=== PATIENT | female | born 1945 | race Caucasian/White ===

== ENCOUNTER 2016-09-05 11:35 | Emergency (ER) | payer BC ==
[~2016-09-05] VITALS: Ht 154.9 cm; Wt 86.5 kg
[~2016-09-05 11:35] MED LIST: AMLO10TA4 PO; CHOLTAB3 PO; DIPH38TA PO; LANS30TA3 PO; LEVO100T7 PO; LOSA50TA54 PO
[2016-09-05 11:37] VITALS: TEMP 36.5; Ht 154.9 cm; Wt 86.5 kg
[2016-09-05] MEDS ORDERED: ONDANSETRON INJ 2 MG/ML 2 ML VIAL IV STA (11:56)
[2016-09-05] MEDS ORDERED: SODIUM CHLORIDE 0.9% 500ML 500 ML IV STA (11:56)
[2016-09-05] MEDS ORDERED: AGMUDL4005 PO (12:01)
[2016-09-05] MEDS ORDERED: HYDROmorphone INJ 0.5 MG/0.5 ML SYR IV STA (12:21)
[2016-09-05 12:30] LABS: BASO % 0.6 %; BASO ABS # 0.03 K/uL (0-0.2); COMPLETE YES; EOS % 2.4 %; HEMATOCRIT 41.2 % (37-47); IG% 0.2 %; LYMPH ABS # 1.84 K/uL (1.2-3.4); MEAN CELL VOLUME 82.6 fL (80-100); MEAN CORPUSCULAR HEMOGLOBIN 27.7 pg (25-34); MEAN CORPUSCULAR HGB CONC 33.5 g/dl (32-36); MEAN PLATELET VOLUME 9.8 fL (7.4-10.4); MONO % 8.1 %; NEUT % 54.7 %; PLATELET COUNT 300 K/uL (130-400); RED BLOOD COUNT 4.99 M/uL (4.2-5.4); WHITE BLOOD COUNT 5.41 K/uL (4.8-10.8)
[2016-09-05 12:44] LABS: MANUAL MICROSCOPIC REQUIRED? YES; URINE APPEARANCE CLEAR (CLEAR); URINE BILIRUBIN NEG (NEG); URINE COLOR YELLOW; URINE NITRITE NEG (NEG); URINE PH 6.5 (4.5-7.5); UROBILINOGEN NEG (NEG)
[2016-09-05 12:46] LABS: REVIEW REQ? NO
--- NOTE | 2016-09-05 12:53 | DIAGNOSTIC IMAGING REPORT ---
ABDOMEN AND PELVIS CT WITHOUT CONTRAST CT DOSE: 1044.98 mGycm HISTORY: Right lower quadrant abdominal pain. TECHNIQUE: Multiaxial CT images of the abdomen and pelvis were performed without contrast. COMPARISON STUDY: Abdomen and pelvis CT 04/11/2016. FINDINGS: Mild bladder wall thickening may be due to underdistention. The uterus and bilateral adnexa are within normal limits. The multiple colonic diverticula. Mild thickening of the distal sigmoid colon with mild adjacent fat stranding and trace fluid. This is progressed in the interval. This likely represents mild acute diverticulitis. There is no perforation or abscess identified at this time. Suboptimal evaluation for bowel pathology due to the lack of intravenous and oral contrast. However, no evidence for bowel obstruction. Postoperative changes consistent with prior right inguinal hernia repair. The lung bases are clear. No pneumoperitoneum. No pneumatosis. Bilateral L5 spondylolysis. Tiny fat-containing umbilical hernia. Prior cholecystectomy. The unenhanced spleen and adrenal glands are unremarkable. No renal stones or hydronephrosis. Subcentimeter exophytic hypodense lesions within the lower poles of the kidneys are too small to characterize but statistically represent cysts. Multiple scattered hypodense lesions within the liver are not significantly changed. These are incompletely characterized on this noncontrast study but favor cysts. Stable 1 cm hypodense lesion within the pancreatic head. This is stable compared to a 2014 examination. Therefore, this likely represents a cystic lesion. No change in the suspected interloop fistula/abscess within the deep pelvis. This is best seen on image 65. This measures approximately 2 cm in size. IMPRESSION: 1. Interval development of mild pericolonic fat stranding and trace fluid adjacent to the slightly thickened distal sigmoid colon. This likely represents a mild acute diverticulitis. No perforation or abscess identified at this time. 2. Mild bladder wall thickening. This could be due to underdistention. Recommend correlation with urinalysis to exclude a cystitis. 3. No change in the 2 cm thick-walled air-fluid structure within the central pelvis. 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 4. Additional findings as described above Electronically signed by: Chencho Leonardo M.D. 09/05/2016 12:51 PM
[2016-09-05 12:55] LABS: URINE RBC 0-4 /hpf (0-4)
[2016-09-05 12:56] LABS: URINE BACTERIA 1+ (NEG); ZZUR CULT IF INDIC CLEAN CATCH YES
[2016-09-05 12:59] LABS: ALT/SGPT 19 U/L (12-78); BLOOD UREA NITROGEN 12 mg/dl (7-18); BUN/CREATININE RATIO 15.5 (10-20); CALCIUM 9.3 mg/dl (8.5-10.1); CARBON DIOXIDE 24 mmol/L (21-32); CHLORIDE 105 mmol/L (98-107); CREATININE 0.75 mg/dl (0.60-1.20); GLUCOSE 101 mg/dl (70-99); SODIUM 140 mmol/L (136-145)
[2016-09-05 13:01] LABS: ALKALINE PHOSPHATASE 106 U/L (45-117); AST/SGOT 17 U/L (15-37)
[2016-09-05 13:56] VITALS: BP 141/77; PULSE 71; O2SAT 93
--- NOTE | 2016-09-05 17:47 | EMERGENCY ROOM VISIT NOTE ---
History Report prepared by Aracelis: Adrianne Murphy Under the Supervision of: Dr. Delmar Ireland D.O. First contact with patient: 11:46 Chief Complaint: ABDOMINAL PAIN Stated Complaint: PAIN IN SIDE OF STOMACH Nursing Triage Summary: Pt c/o right sided abdominal pain upper and lower since Friday. Hx hernia and diverticulitis. Pt asssociates nausea, denies v/d Bladder infection last week, taking antibiotics. History of Present Illness The patient is a 70 year old female who presents to the Emergency Room with complaints of persistent pain to her lower right abdominal quadrant over the past 3 days. Currently, her pain is radiating toward her umbilicus and she rates her discomfort as a 6/10. Since the time of onset, the patient has felt nauseous and has had low grade fevers of 100F. Prior to the onset of this pain, patient states that she began with increased frequency of urination last week, and was then started on Augmentin 2 days prior as her urine cultures grew back positive for infection. She denies having dysuria or hematuria since that time. Patient's last bowel movement was earlier today and she states that it appeared different than normal as the color was orange/yellow, but she denies noticing any blood throughout. Patient states that she was concerned about her pain today as it felt similar to her past episode of diverticulitis, which she previously had in the same area at that time as well. She also notes history of abdominal hernia. Pt denies headache, change in vision, chest pain, shortness of breath, vomiting, and diarrhea. Source of History: patient Onset: over the past 3 days Position: abdomen (RLQ) Symptom Intensity: 6/10 Timing: other (persistent) Associated Symptoms: + fevers (low grade), + nausea, + urinary symptoms ( increased frequency, no hematuria or dysuria), No SOB, No chest pain, No diarrhea, No headache, No melena, No vomiting Review of Systems See HPI for pertinent positives & negatives. A total of 10 systems reviewed and were otherwise negative. 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UNIT PO DAILY Lansoprazole (Prevacid Solutab), 30 MG PO QPM Levothyroxine Sodium (Levothyroxine Sodium), 100 MCG PO DAILY Losartan Potassium (Cozaar), 100 MG PO DAILY Scheduled PRN Lorazepam (Lorazepam), 0.5 MG PO BID PRN for Pain Allergies Coded Allergies: Iodinated Diagnostic Agents (Verified Allergy, Severe, sob, 09/05/16) Azithromycin (Verified Allergy, Intermediate, RASH, 09/05/16) Levalbuterol Hydrochloride (Verified Allergy, Intermediate, CHEST PAIN, 09/05/16) Minocycline (Verified Allergy, Intermediate, RASH, 09/05/16) Iodine (Verified Allergy, Mild, IV CONTRAST, 09/05/16) Cefaclor (Verified Allergy, Unknown, HIVES, 09/05/16) Erythromycin (Verified Allergy, Unknown, HIVES, 09/05/16) Nitrofurantoin (Verified Allergy, Unknown, 09/05/16) Phenazopyridine (Verified Allergy, Unknown, sob, 09/05/16) Sulfa Antibiotics (Verified Allergy, Unknown, HIVES, 09/05/16) Levofloxacin (Verified Adverse Reaction, Intermediate, ABDOMINAL PAIN, 09/05) Morphine (Verified Adverse Reaction, Intermediate, EXCESSIVE VOMITING, 09/05) Pt. states excessive vomiting with this medication Physical Exam Vital Signs Date Time Temp Pulse Resp B/P Pulse Ox O2 Delivery O2 Flow Rate FiO2 09/05/16 13:56 71 18 141/77 93 Room Air 09/05/16 11:37 36.5 88 17 153/90 94 Room Air Physical Exam GENERAL: Ambulating in room without difficulty. No acute distress, nontoxic. EYE EXAM: normal conjunctiva. OROPHARYNX: no exudate, no erythema, lips, buccal mucosa, and tongue normal and mucous membranes are moist NECK: supple, no nuchal rigidity, no adenopathy, non-tender LUNGS: Clear to auscultation. Normal chest wall mechanics HEART: no murmurs, S1 normal and S2 normal ABDOMEN: abdomen soft, minimal tenderness in the right lower quadrant, normo- active bowel sounds, no masses, no rebound or guarding. BACK: Back is symmetrical on inspection and there is no deformity, no midline tenderness, no CVA tenderness. SKIN: no rashes and no bruising UPPER EXTREMITIES: upper extremities are grossly normal. LOWER EXTREMITIES: No pitting edema. NEURO EXAM: Normal sensorium, cranial nerves II-XII grossly intact, normal speech, no gross weakness of arms, no gross weakness of legs. Medical Decision & Procedures ER Provider Diagnostic Interpretation: CT:Per my review, radiologist interpretation. ABDOMEN AND PELVIS CT WITHOUT CONTRAST CT DOSE: 1044.98 mGycm HISTORY: Right lower quadrant abdominal pain. TECHNIQUE: Multiaxial CT images of the abdomen and pelvis were performed without contrast. COMPARISON STUDY: Abdomen and pelvis CT 04/11/2016. FINDINGS: Mild bladder wall thickening may be due to underdistention. The uterus and bilateral adnexa are within normal limits. The multiple colonic diverticula. Mild thickening of the distal sigmoid colon with mild adjacent fat stranding and trace fluid. This is progressed in the interval. This likely represents mild acute diverticulitis. There is no perforation or abscess identified at this time. Suboptimal evaluation for bowel pathology due to the lack of intravenous and oral contrast. However, no evidence for bowel obstruction. Postoperative changes consistent with prior right inguinal hernia repair. The lung bases are clear. No pneumoperitoneum. No pneumatosis. Bilateral L5 spondylolysis. Tiny fat-containing umbilical hernia. Prior cholecystectomy. The unenhanced spleen and adrenal glands are unremarkable. No renal stones or hydronephrosis. Subcentimeter exophytic hypodense lesions within the lower poles of the kidneys are too small to characterize but statistically represent cysts. Multiple scattered hypodense lesions within the liver are not significantly changed. These are incompletely characterized on this noncontrast study but favor cysts. Stable 1 cm hypodense lesion within the pancreatic head. This is stable compared to a 2014 examination. Therefore, this likely represents a cystic lesion. No change in the suspected interloop fistula/abscess within the deep pelvis. This is best seen on image 65. This measures approximately 2 cm in size. IMPRESSION: 1. Interval development of mild pericolonic fat stranding and trace fluid adjacent to the slightly thickened distal sigmoid colon. This likely represents a mild acute diverticulitis. No perforation or abscess identified at this time. 2. Mild bladder wall thickening. This could be due to underdistention. Recommend correlation with urinalysis to exclude a cystitis. 3. No change in the 2 cm thick-walled air-fluid structure within the central pelvis. 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 4. Additional findings as described above Electronically signed by: Chencho Leonardo M.D. 09/05/2016 12:51 PM Laboratory Results 09/05/16 12:05 Red Blood Count 4.99, Mean Corpuscular Volume 82.6, Mean Corpuscular Hemoglobin 27.7, Mean Corpuscular Hemoglobin Concent 33.5, Mean Platelet Volume 9.8, Neutrophils (%) (Auto) 54.7, Lymphocytes (%) (Auto) 34.0, Monocytes (%) (Auto) 8.1, Eosinophils (%) (Auto) 2.4, Basophils (%) (Auto) 0.6, Neutrophils # (Auto) 2.96, Lymphocytes # (Auto) 1.84, Monocytes # (Auto) 0.44, Eosinophils # (Auto) 0.13, Basophils # (Auto) 0.03 09/05/16 12:05 Test 09/05/16 12:05 09/05/16 12:38 White Blood Count 5.41 K/uL (4.8-10.8) Red Blood Count 4.99 M/uL (4.2-5.4) Hemoglobin 13.8 g/dL (12.0-16.0) Hematocrit 41.2 % (37-47) Mean Corpuscular Volume 82.6 fL (80-100) Mean Corpuscular Hemoglobin 27.7 pg (25-34) Mean Corpuscular Hemoglobin Concent 33.5 g/dl (32-36) Platelet Count 300 K/uL (130-400) Mean Platelet Volume 9.8 fL (7.4-10.4) Neutrophils (%) (Auto) 54.7 % Lymphocytes (%) (Auto) 34.0 % Monocytes (%) (Auto) 8.1 % Eosinophils (%) (Auto) 2.4 % Basophils (%) (Auto) 0.6 % Neutrophils # (Auto) 2.96 K/uL (1.4-6.5) Lymphocytes # (Auto) 1.84 K/uL (1.2-3.4) Monocytes # (Auto) 0.44 K/uL (0.11-0.59) Eosinophils # (Auto) 0.13 K/uL (0-0.5) Basophils # (Auto) 0.03 K/uL (0-0.2) RDW Standard Deviation 41.3 fL (36.4-46.3) RDW Coefficient of Variation 13.7 % (11.5-14.5) Immature Granulocyte % (Auto) 0.2 % Immature Granulocyte # (Auto) 0.01 K/uL (0.00-0.02) Anion Gap 11.0 mmol/L (3-11) Est Creatinine Clear Calc Drug Dose 68.7 ml/min Estimated GFR () 92.9 Estimated GFR (Non- 80.2 BUN/Creatinine Ratio 15.5 (10-20) Calcium Level 9.3 mg/dl (8.5-10.1) Total Bilirubin 0.4 mg/dl (0.2-1) Direct Bilirubin < 0.1 mg/dl (0-0.2) Aspartate Amino Transf (AST/SGOT) 17 U/L (15-37) Alanine Aminotransferase (ALT/SGPT) 19 U/L (12-78) Alkaline Phosphatase 106 U/L (45-117) Total Protein 7.1 gm/dl (6.4-8.2) Albumin 3.4 gm/dl (3.4-5.0) Lipase 119 U/L (73-393) Urine Color YELLOW Urine Appearance CLEAR (CLEAR) Urine pH 6.5 (4.5-7.5) Urine Specific [place] 1.010 (1.000-1.030) Urine Protein NEG (NEG) Urine Glucose (UA) NEG (NEG) Urine Ketones NEG (NEG) Urine Occult Blood NEG (NEG) Urine Nitrite NEG (NEG) Urine Bilirubin NEG (NEG) Urine Urobilinogen NEG (NEG) Urine Leukocyte Esterase TRACE (NEG) Urine RBC 0-4 /hpf (0-4) Urine WBC 5-10 /hpf (0-5) Urine Epithelial Cells 10-20 /lpf (0-5) Urine Renal Cells 0-5 /lpf (FEW) Urine Bacteria 1+ (NEG) Laboratory results per my review. Medications Administered Medications (Trade) Dose Ordered Sig/Barb Route Start Time Stop Time Status Last Admin Dose Admin Sodium Chloride (Nss 500ml) 500 ml @ 999 mls/hr Q31M STAT IV 09/05/16 11:56 09/05/16 12:26 DC 09/05/16 12:19 999 MLS/HR Ondansetron HCl (Zofran Inj) 4 mg NOW STAT IV 09/05/16 11:56 09/05/16 11:58 DC 09/05/16 12:20 4 MG Hydromorphone HCl (Dilaudid Inj) 0.5 mg NOW STAT IV 09/05/16 12:21 09/05/16 12:22 DC 09/05/16 12:36 0.5 MG ED Course ED COURSE: Vital signs were reviewed and showed hypertension. The patients medical record was reviewed. Patient states that she has a known pelvic abscess which was unable to be drained by [facility]. Patient is also currently being treated for UTI and has 8 days left of her Augmentin prescription. The above diagnostic studies were performed and reviewed. ED treatments and interventions as stated above. 1147: The patient was evaluated in room A9. A complete history and physical examination was performed. 1156: Zofran 4 mg IV and NSS 500 ml @ 999 mls/hr IV were ordered. 1221: Upon reevaluation, the patient was having additional pain and was requesting medication. Dilaudid 0.5 mg IV was ordered. 1239: Patient was reevaluated and was doing well after given the medication. 1338: Upon reevaluation, the patient appeared to be resting comfortably. I updated her on the results of her radiology reports and lab tests. Discharge instructions were also discussed at this time. She verbalized her understanding and agreement with the treatment plan, and she is now ready for disposition. Based on the patients age, coexisting illnesses, exam and lab findings the decision to treat as an outpatient was made. The patient remained stable while under my care. The patient appeared well at the time of discharge. Medical Decision Differential diagnoses includes but is not limited to gastritis, peptic ulcer disease, GERD, gallbladder disease, pancreatitis, small bowel obstruction, acute coronary syndrome, pericarditis, ischemic bowel, irritable bowel disease, irritable bowel syndrome, appendicitis, diverticulitis, malignancy, hernia, urinary tract infection, torsion, perforation, trauma, infectious. Patient is a 70-year-old female who presents the ER with right lower quadrant abdominal pain. She notes that she does not have an appendix and this is worse deeply has her episodes/labs at diverticulitis. She seen by her PCP several days beforehand and placed on Augmentin for UTI this past Friday. She's been on the same Bertie past 2 days. She is not having any fevers. She is no complaints. CT of her abdomen pelvis was performed noncontrast due to her allergy and showed small amount diverticulitis in the right lower quadrant along with thickening of the bladder and small intra-abdominal/intrapelvic abscess which has been unchanged since this past April. I had discussion with the patient and she notes that she is aware of an abscess in her bili which they have been unable to drain following perforation. She follows with [facility]. I instructed that she should follow-up in regards to this. I also stressed the importance of continuing the Augmentin. I did not switch her antibiotics since she has only been on this antibiotic for less than 48 hours. This will cover both a UTI and diverticulitis. She is no leukocytosis. Remainder of her labs are fairly unremarkable. She was discharged and instructed to continue her Augmentin and follow-up with her PCP in next 48 hours. I offered narcotics but she declined. Discussed with Pt concerning signs and symptoms to watch out for. Pt was instructed to follow up with their PCP and discussed with the patient their option to return to the ED at anytime for persistent or worsening symptoms. The appropriate anticipatory guidance and out-patient management, including indications for return to the emergency department, were explained at length to the patient and understood. Impression Primary Impression: Diverticulitis Additional Impression: UTI (urinary tract infection) Scribe Attestation The scribe's documentation has been prepared under my direction and personally reviewed by me in its entirety. I confirm that the note above accurately reflects all work, treatment, procedures, and medical decision making performed by me. Departure Information Dispostion Home / Self-Care Referrals Sophie Mazariegos M.D. (PCP) Forms HOME CARE DOCUMENTATION FORM, IMPORTANT VISIT INFORMATION, My [facility] Patient Instructions A Signature Page Additional Instructions Please follow up with your primary care doctor with in the next 24 hours. Any worsening of your symptoms, please return to the ED immediately. This includes fevers greater than 100.4, persistent nausea vomiting, worsening abdominal pain , or any other concerning signs or symptoms from your standpoint. Please continue your Augmentin as this will treat your UTI and diverticulitis. You were also found to have the below findings on CT: You should follow-up with general surgery within the week in regards these findings. No change in the 2 cm thick-walled air-fluid structure within the central pelvis. 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
[2017-02-02] MEDS ORDERED: METR-162 PO (23:46)
[2017-02-06] MEDS ORDERED: VANC1CAP3 PO (23:46)
[2017-02-09] MEDS ORDERED: ATV5X PO (16:30)
[2017-02-09] MEDS ORDERED: DIPH1TAB PO (23:47)
[2017-02-11] MEDS ORDERED: VNCSEMP PO (12:53)
[2017-04-14] MEDS ORDERED: METR500T PO (13:41)
[2017-04-14] MEDS ORDERED: CPR500 PO (13:41)
[2017-04-15] MEDS ORDERED: CIPR1SUS PO (12:42)
[2017-04-15] MEDS ORDERED: MTR500 PO (12:42)
[2017-04-27] MEDS ORDERED: CIPR1SUS PO (14:06)
[2017-04-27] MEDS ORDERED: MTR500 PO (14:06)
[2017-06-06] MEDS ORDERED: CPRS5005 PO (16:41)
[2017-06-06] MEDS ORDERED: NYSS5 PO (16:41)
[2017-06-06] MEDS ORDERED: LCTX PO (16:41)
== END 2016-09-05 14:06 | disposition home or self-care (01) ==
LOC: C.EDB 11:37 → C.EDA 14:06
DX: K57.92 Diverticulitis of intestine, part unspecified, without perforation or abscess without bleeding (principal); N39.0 Urinary tract infection, site not specified; K65.1 Peritoneal abscess; I10 Essential (primary) hypertension; E03.9 Hypothyroidism, unspecified; K21.9 Gastro-esophageal reflux disease without esophagitis; Z85.3 Personal history of malignant neoplasm of breast; Z87.891 Personal history of nicotine dependence; Z80.9 Family history of malignant neoplasm, unspecified

== ENCOUNTER → 2016-09-19 | Outpatient (CLI) | payer BC ==
[~2016-09-19] MED LIST changes: +AGMUDL4005 PO; +ATV5X PO; +CHOL400C10 PO; +CIPR1SUS PO; +CPR500 PO; +DIPH1TAB PO; +FLUT0.15 NAE; +METR-162 PO; +METR500T PO; +MTR500 PO; +NRV/5 PO; +VANC1CAP3 PO; +VNCSEMP PO
--- NOTE | 2016-09-19 12:47 | DIAGNOSTIC IMAGING REPORT ---
CT SCAN OF THE ABDOMEN AND PELVIS WITHOUT CONTRAST CLINICAL HISTORY: DIVERTICULITIS RIGHT-SIDED ABDOMINAL PAIN, DIARRHEA. COMPARISON STUDY: 09/05/2016 TECHNIQUE: CT scan of the abdomen and pelvis was performed from the lung bases to the proximal femurs. Images are reviewed in the axial, sagittal, and coronal planes. IV contrast was not administered for this examination. CT DOSE: 988.49 mGycm FINDINGS: Lower chest: There are lingular atelectatic changes. Liver: There are multiple hepatic hypodensities similar to the prior study and likely represent cysts. Gallbladder: Surgically absent Spleen: Normal in size and attenuation. Pancreas: There is a stable 15 mm cystic lesion within the pancreatic head. Adrenal glands: Unremarkable. Kidneys: No renal, ureteral, or bladder calculi are visualized. Bowel: There are no transition zones indicate bowel obstruction. By history the appendix is surgically absent. There is sigmoid diverticulosis. There is sigmoid wall thickening. This likely secondary to peridiverticular muscular hypertrophy. The previously queried deep pelvic abscess is no longer visualized. The sigmoid colon abuts a small bowel loop. A fistula cannot be excluded. Hepatic Peritoneum: No free air is visualized. There is no ascites. There is a tiny fat-containing umbilical hernia. There are postsurgical changes of a right lower quadrant abdominal wall hernia repair. Vasculature: The abdominal aorta is normal in course and caliber. Adenopathy: None. Pelvic viscera: The bladder, and pelvic viscera are unremarkable. Skeletal structures: There is bilateral L5 spondylolysis. IMPRESSION: 1. No renal, ureteral, or bladder calculi identified 2. Sigmoid diverticulosis with wall thickening likely secondary to peridiverticular muscular hypertrophy. The previously described central pelvic abscess is no longer visualized. The sigmoid colon abuts a small bowel loop. A small fistula cannot be excluded. 3. No evidence of bowel obstruction. No evidence of free air Electronically signed by: Lincoln Johnston M.D. 09/19/2016 12:45 PM Dictated Date/Time: 09/19/2016 12:39 PM
== END | disposition home or self-care (01) ==
LOC: C.CTS 12:15
PROVIDERS: ATTEND Colon & Rectal Surgery
DX: R19.7 Diarrhea, unspecified (principal); K57.30 Diverticulosis of large intestine without perforation or abscess without bleeding

== ENCOUNTER → 2016-11-13 | Outpatient (CLI) | payer BC ==
[~2016-11-13] MED LIST changes: +CALCTAB7 PO; +CHOL4POW5 PO; +CPRS5005 PO; -DIPH1TAB PO; +DIPH1TAB87 PO; +FLUC200T PO; +LCTX PO; +METRONIDAZOLE PO; +NYSS5 PO; +vancomycin susp PO
[2016-11-13 13:42] VITALS: BP 138/84; PULSE 69; TEMP 36.6; O2SAT 94
--- NOTE | 2016-11-13 15:39 | Radiation Oncology Follow-Up ---
Radiation Oncology Follow-Up Date of Visit Nov 13, 2016. Reason For Visit Six-month follow-up Radiation Completion Date finished 03-01-2016 Diagnosis (1) Intraductal carcinoma of left breast Status: Resolved Onset Date: 11/14/2015 Stage: 0 Permanent Comment: Abnormal left breast mammogram Status post stereotactic biopsy 11/14/2015 revealing DCIS grade 1 Estrogen receptor positive and progesterone receptor positive Status post needle localization lumpectomy 12/20/2015 Stage pTis pNX Status post completion of radiation therapy 03/01/2016 received 3850 cGy utilizing accelerated partial breast irradiation. Last Edited By: Ese Cabrera on Mar 14, 2016 11:36 History of Present Illness Ms. Quinn is a 70-year-old female without a family history of breast cancer. She recently underwent a bilateral digital screening mammogram on 10/31/2015. This study noted and increasingly conspicuous 2 cm nodular asymmetry with associated microcalcifications in the upper inner far posterior left breast that warranted further evaluation with spot magnification views and possibly ultrasound. These procedures were performed on 11/07/2015. This confirmed a new nodular focal asymmetry with associated microcalcifications extending over a 0.07 x 1.3 x 1.9 cm area in the upper inner far posterior left breast. This was felt to be indeterminant but given a BI-RADS Category 4B with biopsies recommended. On 11/14/2015 patient underwent a stereotactic guided biopsy of the left breast. This revealed a low-grade ductal carcinoma in situ which is associated with a papilloma. It measures an aggregate approximately 1 cm no necrosis was noted, the architectural pattern was solid and microcalcifications were present. Estrogen receptors were positive as were progesterone receptors. No infiltrative carcinoma was appreciated. Case: [id number]. The patient subsequently went to [facility] where she was seen by Dr. Carrie Morejon she discussed breast conserving therapy with the patient who agreed to a partial mastectomy. The patient underwent a needle localization to confirm no clip migration and on December 19 underwent a partial mastectomy. This confirmed residual ductal carcinoma in situ, low-grade with intraductal papilloma with focal DCIS. The margins were negative for DCIS and there was no evidence of invasive carcinoma. The estimated size of the DCIS was at least 0.6 cm and the disease was present in 5 out of 10 blocks examined. This was a cribriform and solid low-grade cancer with no necrosis. The margins were clear with the closest margin 0.9 cm which is the posterior margin. No sentinel node was performed. The final stage was therefore pTis pNx. ER positive NH positive. The patient has recovered well from the surgery and presents today for discussion of the adjuvant treatment options. She underwent a CT simulation was found to be a candidate for accelerated partial treatment. She was given treatment from February 24 to 03/01/2016. She received 3850 cGy. Interim History She's been doing well over the past 6 months. She denies any changes to her breast. She has noted no masses or tenderness no change of the axilla. She's had no swelling of her arm. She has seen her breast surgeon in [place] and had recheck mammography. She was seen by medical oncology and prescribed tamoxifen. She unfortunately had severe hot flashes, fever, and nausea. She stopped the medication. At her last visit she was encouraged to follow-up with Dr. Guevara. She was also encouraged by her breast surgeon see Dr. Guevara. She had a mammogram 07/05/2016. This showed postsurgical changes in the left breast are benign. A bilateral diagnostic mammogram is recommended in 6 months. BI-RADS Category 2. Allergies Coded Allergies: Iodinated Diagnostic Agents (Verified Allergy, Severe, sob, 09/05/16) Azithromycin (Verified Allergy, Intermediate, RASH, 09/05/16) Levalbuterol Hydrochloride (Verified Allergy, Intermediate, CHEST PAIN, 09/05/16) Minocycline (Verified Allergy, Intermediate, RASH, 09/05/16) Iodine (Verified Allergy, Mild, IV CONTRAST, 09/05/16) Cefaclor (Verified Allergy, Unknown, HIVES, 09/05/16) Erythromycin (Verified Allergy, Unknown, HIVES, 09/05/16) Nitrofurantoin (Verified Allergy, Unknown, 09/05/16) Phenazopyridine (Verified Allergy, Unknown, sob, 09/05/16) Sulfa Antibiotics (Verified Allergy, Unknown, HIVES, 09/05/16) Levofloxacin (Verified Adverse Reaction, Intermediate, ABDOMINAL PAIN, 09/05) Morphine (Verified Adverse Reaction, Intermediate, EXCESSIVE VOMITING, 09/05) Pt. states excessive vomiting with this medication Home Medications Scheduled Amlodipine Besylate (Norvasc), 10 MG PO QPM Ergocalciferol (Vitamin D), 400 INTER.UNIT PO DAILY Lansoprazole (Prevacid Solutab), 30 MG PO QPM Levothyroxine Sodium (Levothyroxine Sodium), 100 MCG PO DAILY Losartan Potassium (Cozaar), 100 MG PO DAILY Scheduled PRN Lorazepam (Lorazepam), 0.5 MG PO BID PRN for Pain Review of Systems Gastrointestinal: Symptoms: WNL GI Comments: Nausea from abscess Oral: Symptoms: No Problems Respiratory: Symptoms: WNL Urinary: Symptoms: Nocturia Comments: nocturia times 3 Skin: Symptoms: No Problems Breast: Right Upper Arm Measurement: 35.4 Right Mid Arm Measurement: 25.5 Right Wrist Measurement: 15.9 Left Upper Arm Measurement: 37.5 Left Mid Arm Measurement: 27.0 Left Wrist Measurement: 16.5 Arm Dominence: Right Patient Cosmetic Evaluation: Excellent Staff Cosmetic Evalaluation: Excellent Physical Exam Vital Signs Date Time Temp Pulse Resp B/P Pulse Ox O2 Delivery O2 Flow Rate FiO2 11/13/16 13:42 36.6 69 16 138/84 94 Pain: Pain Duration: Constant Side: Bilateral Patient Pain Scale: 0 - 10 Initial Pain Intensity: 0.0 Pain Description: Sharp, Soreness Fatigue: None General Appearance: no apparent distress Eyes: normal inspection, EOMI ENT: normal ENT inspection, hearing grossly normal, + nasal congestion Neck: no adenopathy, thyroid normal Respiratory/Chest: lungs clear, no respiratory distress, no accessory muscle use Breast: Breast examination reveals well-healed incisions of the left breast. There is an oval area of resolving hyperpigmentation in the upper inner portion of the breast. There is mild deficit in the area of lumpectomy. There are no masses or tenderness and no axillary adenopathy. There are no nipple changes. Using the [place] score cosmesis she has a good outcome. The right breast showed no masses or tenderness no axillary adenopathy. Cardiovascular: regular rate, rhythm, no gallop, no murmur Abdomen: non tender, soft, no organomegaly Extremities: no pedal edema Neurologic/Psychiatric: no motor/sensory deficits, alert, normal mood/affect Laboratory Studies Test 09/05/16 12:05 09/05/16 12:38 White Blood Count 5.41 K/uL (4.8-10.8) Red Blood Count 4.99 M/uL (4.2-5.4) Hemoglobin 13.8 g/dL (12.0-16.0) Hematocrit 41.2 % (37-47) Mean Corpuscular Volume 82.6 fL (80-100) Mean Corpuscular Hemoglobin 27.7 pg (25-34) Mean Corpuscular Hemoglobin Concent 33.5 g/dl (32-36) Platelet Count 300 K/uL (130-400) Mean Platelet Volume 9.8 fL (7.4-10.4) Neutrophils (%) (Auto) 54.7 % Lymphocytes (%) (Auto) 34.0 % Monocytes (%) (Auto) 8.1 % Eosinophils (%) (Auto) 2.4 % Basophils (%) (Auto) 0.6 % Neutrophils # (Auto) 2.96 K/uL (1.4-6.5) Lymphocytes # (Auto) 1.84 K/uL (1.2-3.4) Monocytes # (Auto) 0.44 K/uL (0.11-0.59) Eosinophils # (Auto) 0.13 K/uL (0-0.5) Basophils # (Auto) 0.03 K/uL (0-0.2) RDW Standard Deviation 41.3 fL (36.4-46.3) RDW Coefficient of Variation 13.7 % (11.5-14.5) Immature Granulocyte % (Auto) 0.2 % Immature Granulocyte # (Auto) 0.01 K/uL (0.00-0.02) Sodium Level 140 mmol/L (136-145) Potassium Level 4.0 mmol/L (3.5-5.1) Chloride Level 105 mmol/L (98-107) Carbon Dioxide Level 24 mmol/L (21-32) Anion Gap 11.0 mmol/L (3-11) Blood Urea Nitrogen 12 mg/dl (7-18) Creatinine 0.75 mg/dl (0.60-1.20) Est Creatinine Clear Calc Drug Dose 68.7 ml/min Estimated GFR () 92.9 Estimated GFR (Non- 80.2 BUN/Creatinine Ratio 15.5 (10-20) Random Glucose 101 mg/dl (70-99) Calcium Level 9.3 mg/dl (8.5-10.1) Total Bilirubin 0.4 mg/dl (0.2-1) Direct Bilirubin < 0.1 mg/dl (0-0.2) Aspartate Amino Transferase (AST) 17 U/L (15-37) Alanine Aminotransferase (ALT) 19 U/L (12-78) Alkaline Phosphatase 106 U/L (45-117) Total Protein 7.1 gm/dl (6.4-8.2) Albumin 3.4 gm/dl (3.4-5.0) Lipase 119 U/L (73-393) Urine Color YELLOW Urine Appearance CLEAR (CLEAR) Urine pH 6.5 (4.5-7.5) Urine Specific [place] 1.010 (1.000-1.030) Urine Protein NEG (NEG) Urine Glucose (UA) NEG (NEG) Urine Ketones NEG (NEG) Urine Occult Blood NEG (NEG) Urine Nitrite NEG (NEG) Urine Bilirubin NEG (NEG) Urine Urobilinogen NEG (NEG) Urine Leukocyte Esterase TRACE (NEG) Urine RBC 0-4 /hpf (0-4) Urine WBC 5-10 /hpf (0-5) Urine Epithelial Cells 10-20 /lpf (0-5) Urine Renal Cells 0-5 /lpf (FEW) Urine Bacteria 1+ (NEG) Additional Studies Mammography as reviewed above. Assessment & Plan Plan: Continue follow-up visits with her breast surgeon and mammography in [place]. She'll be due in December. We discussed follow-up visit with Dr. Guevara. She stated she was not going to make a follow-up appointment at this time. She did not wish to try any other medication. She is afraid of side effects. We asked her to return to our office in 1 year. She may call if she has any questions or concerns in the interim. She is going to having left rotator cuff surgery within the next few months. She was concerned of possible side effects due to the prior radiation. I reviewed with her that she was treated using accelerated partial breast treatment. The only area that may have any delayed healing would be in the oval area of treatment. This would not affect her healing following the rotator cuff surgery. Total Time In Follow-Up I spent 20 minutes speaking to the patient and performing examination. I spent 15 minutes reviewing information and completing this note. Copy To Bennie Guevara D.O.; Sophie Mazariegos M.D.; Carrie Morejon M.D.
== END | disposition home or self-care (01) ==
LOC: C.ONC 13:27
PROVIDERS: ATTEND Physician Assistant Medical
DX: Z08 Encounter for follow-up examination after completed treatment for malignant neoplasm (principal); Z92.3 Personal history of irradiation; Z85.3 Personal history of malignant neoplasm of breast

== ENCOUNTER 2016-12-05 11:51 | Emergency (ER) | payer BC ==
[~2016-12-05] VITALS: Ht 154.9 cm; Wt 85.3 kg
[~2016-12-05 11:51] MED LIST changes: -AGMUDL4005 PO; -ATV5X PO; -CALCTAB7 PO; -CHOL400C10 PO; -CHOL4POW5 PO; -CIPR1SUS PO; -CPR500 PO; -CPRS5005 PO; -DIPH1TAB87 PO; -DIPH38TA PO; -FLUC200T PO; -FLUT0.15 NAE; -LCTX PO; -METR-162 PO; -METR500T PO; -METRONIDAZOLE PO; -MTR500 PO; -NRV/5 PO; -NYSS5 PO; -VANC1CAP3 PO; -VNCSEMP PO; -vancomycin susp PO
[2016-12-05 11:53] VITALS: TEMP 36.4; Ht 154.9 cm; Wt 85.3 kg
[2016-12-05] MEDS ORDERED: ONDANSETRON INJ 2 MG/ML 2 ML VIAL IV STA (12:11)
[2016-12-05] MEDS ORDERED: HYDROmorphone INJ 1 MG/ML SYR IV STA (12:15)
[2016-12-05 12:50] LABS: BASO % 0.6 %; BASO ABS # 0.03 K/uL (0-0.2); COMPLETE YES; LYMPH % 29.9 %; LYMPH ABS # 1.56 K/uL (1.2-3.4); MEAN CELL VOLUME 81.3 fL (80-100); MEAN CORPUSCULAR HEMOGLOBIN 27.4 pg (25-34); MEAN CORPUSCULAR HGB CONC 33.8 g/dl (32-36); MEAN PLATELET VOLUME 9.8 fL (7.4-10.4); MONO % 5.6 %; NEUT % 62.9 %; PLATELET COUNT 263 K/uL (130-400); RED BLOOD COUNT 4.92 M/uL (4.2-5.4); WHITE BLOOD COUNT 5.21 K/uL (4.8-10.8)
[2016-12-05 13:05] LABS: URINE APPEARANCE CLEAR (CLEAR); URINE BILIRUBIN NEG (NEG); URINE COLOR YELLOW; URINE EPITHELIAL CELL AUTO 20-30 /lpf (0-5); URINE NITRITE NEG (NEG); URINE SPECIFIC GRAVITY 1.008 (1.000-1.030); UROBILINOGEN NEG (NEG)
--- NOTE | 2016-12-05 13:16 | DIAGNOSTIC IMAGING REPORT ---
ABDOMEN AND PELVIS CT WITHOUT CONTRAST CT DOSE: 905.75 mGy.cm HISTORY: Pain LLQ tenderness eval for diver tic TECHNIQUE: Multiaxial CT images of the abdomen and pelvis were performed without contrast. COMPARISON STUDY: 09/19/2016 FINDINGS: Minimal dependent basilar atelectasis. Multiple hepatic cysts unchanged in the prior study. Prior cholecystectomy. Spleen is unremarkable. Kidneys negative for hydronephrosis. Bowel pattern is nonobstructive. Findings of chronic sigmoid diverticulosis. Within left lower pelvis is a mild component of chronic infiltrative change. Although most likely chronic, a minimal component of acute diverticulitis is not excluded. There is no evidence for abscess collection or obstruction. IMPRESSION: 1. Chronic sigmoid diverticulosis possibly with a small acute diverticulitis component in the low left lateral pelvic region. 2. No evidence for abscess collection or obstruction. 3. Multiple stable hepatic cysts. 4. Prior cholecystectomy. Electronically signed by: Tremayne Richmond M.D. 12/05/2016 1:14 PM Dictated Date/Time: 12/05/2016 1:10 PM
[2016-12-05 13:19] LABS: BUN/CREATININE RATIO 16.3 (10-20); CALCIUM 9.1 mg/dl (8.5-10.1); CREATININE 0.73 mg/dl (0.60-1.20); POTASSIUM 3.6 mmol/L (3.5-5.1)
[2016-12-05 13:27] LABS: MANUAL MICROSCOPIC REQUIRED? NO; REVIEW REQ? NO
[2016-12-05] MEDS ORDERED: AGMUDL4005 PO (13:48)
[2016-12-05 14:02] VITALS: BP 118/60; PULSE 55; O2SAT 97
--- NOTE | 2016-12-05 14:07 | EMERGENCY ROOM VISIT NOTE ---
History Report prepared by Aracelis: Funmilayo Escalante Under the Supervision of: Dr. Yogi Paz M.D. First contact with patient: 12:02 Chief Complaint: ABDOMINAL PAIN Stated Complaint: DIVERTICULITIS Nursing Triage Summary: PT VERBALIZES LEFT ABDOMINAL PAIN, VERBALIZING "I'VE GOT DIVERTICULITIS AGAIN". PT VERBALIZES SYMPTOMS STARTED FRIDAY, PAIN WORSENING. PT VERBALIZES NAUSEA. DENIES ANY BLOOD IN STOOL. History of Present Illness The patient is a 71 year old female who presents to the Emergency Room with complaints of worsening left lower quadrant abdominal pain that began 4 days ago. She describes the pain as achy. It is an 8/10 in severity. She also complains of nausea, a few episodes of diarrhea, and dysuria. The patient was diagnosed with diverticulitis in September. Her current symptoms feel similar to her previous episode of diverticulitis. She also feels that she may have a UTI. The patient has a history of a pelvic abscess for which she was following with [facility]. A follow up CT scan on September 19 showed no evidence of the pelvic abscess, although there was question of a small fistula in the sigmoid colon. Denies fever, vomiting, bloody stool, or other complaints. Source of History: patient Onset: 4 days ago Position: abdomen (LLQ) Symptom Intensity: 8/10 Quality: ache Timing: worsening Associated Symptoms: + diarrhea, + nausea, + urinary symptoms (dysuria), No fevers, No vomiting Review of Systems See HPI for pertinent positives & negatives. A total of 10 systems reviewed and were otherwise negative. 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 (11) Urin Tract Infection Nos Surgical Problems: (1) H/O hernia repair (2) H/O knee surgery (3) History of appendectomy (4) Hx of tonsillectomy (5) S/P cholecystectomy Family History Cancer Social History Smoking Status: Former Smoker Alcohol Use: none Drug Use: none Marital Status: Housing Status: lives with family Occupation Status: retired Current/Historical Medications Scheduled Amlodipine Besylate (Norvasc), 10 MG PO QPM Amoxicillin/Clavulanate Potas (Augmentin 400MG/5ML), 11 ML PO BID Ergocalciferol (Vitamin D), 400 INTER.UNIT PO DAILY Lansoprazole (Prevacid Solutab), 30 MG PO QPM Levothyroxine Sodium (Levothyroxine Sodium), 100 MCG PO DAILY Losartan Potassium (Cozaar), 100 MG PO DAILY Scheduled PRN Lorazepam (Lorazepam), 0.5 MG PO BID PRN for Pain Allergies Coded Allergies: Iodinated Diagnostic Agents (Verified Allergy, Severe, sob, 09/05/16) Azithromycin (Verified Allergy, Intermediate, RASH, 09/05/16) Levalbuterol Hydrochloride (Verified Allergy, Intermediate, CHEST PAIN, 09/05/16) Minocycline (Verified Allergy, Intermediate, RASH, 09/05/16) Iodine (Verified Allergy, Mild, IV CONTRAST, 09/05/16) Cefaclor (Verified Allergy, Unknown, HIVES, 09/05/16) Erythromycin (Verified Allergy, Unknown, HIVES, 09/05/16) Nitrofurantoin (Verified Allergy, Unknown, 09/05/16) Phenazopyridine (Verified Allergy, Unknown, sob, 09/05/16) Sulfa Antibiotics (Verified Allergy, Unknown, HIVES, 09/05/16) Levofloxacin (Verified Adverse Reaction, Intermediate, ABDOMINAL PAIN, 09/05) Morphine (Verified Adverse Reaction, Intermediate, EXCESSIVE VOMITING, 09/05) Pt. states excessive vomiting with this medication Physical Exam Vital Signs Date Time Temp Pulse Resp B/P Pulse Ox O2 Delivery O2 Flow Rate FiO2 12/05/16 13:16 66 20 131/65 94 Room Air 12/05/16 11:53 36.4 81 18 156/82 97 Room Air Physical Exam Constitutional: Vital signs reviewed. Eyes: Pupils are equal round reactive to light. Conjunctiva are noninjected. ENT: Pharynx is clear without erythema or exudate. Mucous membranes are moist. Neck supple without meningeal signs. Respiratory: Clear to auscultation bilaterally. Breath sounds are equal bilaterally. Cardiovascular: Regular rate and rhythm. No rubs or gallops. GI: Soft, nondistended, left lower quadrant tenderness. No guarding. Bowel sounds are present. Musculoskeletal: No peripheral edema. No lower extremity tenderness. Integumentary: No cyanosis. Neurological: The patient is awake and alert. No focal deficits. Psychiatric: Normal affect. Medical Decision & Procedures ER Provider Diagnostic Interpretation: Radiology results as stated below per my review and the radiologist's interpretation: ABDOMEN AND PELVIS CT WITHOUT CONTRAST CT DOSE: 905.75 mGy.cm HISTORY: Pain LLQ tenderness eval for diver tic TECHNIQUE: Multiaxial CT images of the abdomen and pelvis were performed without contrast. COMPARISON STUDY: 09/19/2016 FINDINGS: Minimal dependent basilar atelectasis. Multiple hepatic cysts unchanged in the prior study. Prior cholecystectomy. Spleen is unremarkable. Kidneys negative for hydronephrosis. Bowel pattern is nonobstructive. Findings of chronic sigmoid diverticulosis. Within left lower pelvis is a mild component of chronic infiltrative change. Although most likely chronic, a minimal component of acute diverticulitis is not excluded. There is no evidence for abscess collection or obstruction. IMPRESSION: 1. Chronic sigmoid diverticulosis possibly with a small acute diverticulitis component in the low left lateral pelvic region. 2. No evidence for abscess collection or obstruction. 3. Multiple stable hepatic cysts. 4. Prior cholecystectomy. Electronically signed by: Tremayne Richmond M.D. 12/05/2016 1:14 PM Dictated Date/Time: 12/05/2016 1:10 PM Laboratory Results 12/05/16 12:32 Red Blood Count 4.92, Mean Corpuscular Volume 81.3, Mean Corpuscular Hemoglobin 27.4, Mean Corpuscular Hemoglobin Concent 33.8, Mean Platelet Volume 9.8, Neutrophils (%) (Auto) 62.9, Lymphocytes (%) (Auto) 29.9, Monocytes (%) (Auto) 5.6, Eosinophils (%) (Auto) 1.0, Basophils (%) (Auto) 0.6, Neutrophils # (Auto) 3.28, Lymphocytes # (Auto) 1.56, Monocytes # (Auto) 0.29, Eosinophils # (Auto) 0.05, Basophils # (Auto) 0.03 12/05/16 12:32 Test 12/05/16 12:32 White Blood Count 5.21 K/uL (4.8-10.8) Red Blood Count 4.92 M/uL (4.2-5.4) Hemoglobin 13.5 g/dL (12.0-16.0) Hematocrit 40.0 % (37-47) Mean Corpuscular Volume 81.3 fL (80-100) Mean Corpuscular Hemoglobin 27.4 pg (25-34) Mean Corpuscular Hemoglobin Concent 33.8 g/dl (32-36) Platelet Count 263 K/uL (130-400) Mean Platelet Volume 9.8 fL (7.4-10.4) Neutrophils (%) (Auto) 62.9 % Lymphocytes (%) (Auto) 29.9 % Monocytes (%) (Auto) 5.6 % Eosinophils (%) (Auto) 1.0 % Basophils (%) (Auto) 0.6 % Neutrophils # (Auto) 3.28 K/uL (1.4-6.5) Lymphocytes # (Auto) 1.56 K/uL (1.2-3.4) Monocytes # (Auto) 0.29 K/uL (0.11-0.59) Eosinophils # (Auto) 0.05 K/uL (0-0.5) Basophils # (Auto) 0.03 K/uL (0-0.2) RDW Standard Deviation 42.9 fL (36.4-46.3) RDW Coefficient of Variation 14.4 % (11.5-14.5) Immature Granulocyte % (Auto) 0.0 % Immature Granulocyte # (Auto) 0.00 K/uL (0.00-0.02) Urine Color YELLOW Urine Appearance CLEAR (CLEAR) Urine pH 6.0 (4.5-7.5) Urine Specific [place] 1.008 (1.000-1.030) Urine Protein NEG (NEG) Urine Glucose (UA) NEG (NEG) Urine Ketones 1+ (NEG) Urine Occult Blood NEG (NEG) Urine Nitrite NEG (NEG) Urine Bilirubin NEG (NEG) Urine Urobilinogen NEG (NEG) Urine Leukocyte Esterase TRACE (NEG) Urine WBC (Auto) 1-5 /hpf (0-5) Urine RBC (Auto) 0-4 /hpf (0-4) Urine Hyaline Casts (Auto) 0 /lpf (0-5) Urine Epithelial Cells (Auto) 20-30 /lpf (0-5) Urine Bacteria (Auto) NEG (NEG) Anion Gap 8.0 mmol/L (3-11) Est Creatinine Clear Calc Drug Dose 69.0 ml/min Estimated GFR () 95.4 Estimated GFR (Non- 82.3 BUN/Creatinine Ratio 16.3 (10-20) Calcium Level 9.1 mg/dl (8.5-10.1) Total Bilirubin 0.8 mg/dl (0.2-1) Direct Bilirubin 0.2 mg/dl (0-0.2) Aspartate Amino Transf (AST/SGOT) 11 U/L (15-37) Alanine Aminotransferase (ALT/SGPT) 18 U/L (12-78) Alkaline Phosphatase 98 U/L (45-117) Total Protein 6.9 gm/dl (6.4-8.2) Albumin 3.8 gm/dl (3.4-5.0) Lipase 119 U/L (73-393) Laboratory results as reviewed by me. Medications Administered Medications (Trade) Dose Ordered Sig/Barb Route Start Time Stop Time Status Last Admin Dose Admin Ondansetron HCl (Zofran Inj) 4 mg NOW STAT IV 12/05/16 12:11 12/05/16 12:14 DC 12/05/16 12:36 4 MG Hydromorphone HCl (Dilaudid Inj) 0.5 mg NOW STAT IV 12/05/16 12:15 12/05/16 12:16 DC 12/05/16 12:37 0.5 MG ED Course 1206: The patient was evaluated in room C1. A complete history and physical exam was performed. 1211: Ordered Zofran Inj 4 mg IV. 1215: Ordered Dilaudid Inj 0.5 mg IV. 1345: Upon reevaluation, the patient appeared to have improvement of her symptoms. I discussed rickyight's findings with the patient. She verbalized agreement of the treatment plan. The patient was discharged home. Medical Decision This is a 71-year-old female presents with left lower quadrant pain and dysuria. Differential diagnosis includes diverticulitis, abscess, perforation, UTI, fistula. I did perform a limited focused review of portions of the patient 's old chart on the electronic medical record. She was here in September and was diagnosed with a mild diverticulitis. 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 She is followed by [facility] for the abscess. She had a follow up CT on the 19 of September which showed no evidence of the pelvic abscess. There was a question of a small fistula in the sigmoid colon. I did evaluate the patient as noted above. IV access was established. I did treat patient with IV Dilaudid and Zofran. I did order and personally review the patient's urinalysis and as described above. A urine culture was sent. I did order and review the patient's blood work as noted in the electronic medical record. Her white blood cell count is not elevated. The patient has a prior history of diverticulitis. She has had multiple CTs in the past. I did not initially want to obtain a CT but unfortunately the patient has a prior history of abscess and fistula formation and so I did feel it was indicated. I discussed this with the patient who was in agreement. I did order a CT of the abdomen and pelvis. I did review the images myself as well as the radiology report as described above. She does have mild diverticulitis and sigmoid colon without perforation or abscess. I did discuss the testicles with the patient. She requested liquid antibiotics as she has trouble with pills. She was discharged with a prescription for Augmentin and will follow up with her regular doctor as well as her surgeon due to her recurrent episodes of diverticulitis. Impression Primary Impression: Diverticulitis Additional Impression: Dysuria Scribe Attestation The scribe's documentation has been prepared under my direct and personally reviewed by me in its entirety. I confirm that the note above accurately reflects all work, treatment, procedures, and medical decision making performed by me. Departure Information Dispostion Home / Self-Care Prescriptions Amoxicillin/Clavulanate Potas (AUGMENTIN 400MG/5ML) 400 Mg/5 Ml Susp 11 ML PO BID for 10 Days, #220 ML Prov: Yogi Paz M.D. 12/05/16 Referrals No Doctor, Assigned (PCP) Patient Instructions Diverticulitis Jason, My [facility] Additional Instructions You have been examined and treated today on an emergency basis only. This is not a substitute for, or an effort to provide, complete comprehensive medical care. It is impossible to recognize and treat all injuries or illnesses in a single emergency department visit. It is therefore important that you follow up closely with your physician and your surgeon. Call as soon as possible for an appointment. Return for worsening symptoms or if you develop fever, vomiting, or any other concerning symptoms. Problem Qualifiers Primary Impression: Diverticulitis Diverticulitis site: large intestine Diverticulitis bleeding: without bleeding Diverticulitis complication: without perforation or abscess Qualified Codes: K57.32 - Diverticulitis of large intestine without perforation or abscess without bleeding
[2017-02-02] MEDS ORDERED: METR-162 PO (23:46)
[2017-02-06] MEDS ORDERED: VANC1CAP3 PO (23:46)
[2017-02-09] MEDS ORDERED: ATV5X PO (16:30)
[2017-02-11] MEDS ORDERED: VNCSEMP PO (12:53)
[2017-04-14] MEDS ORDERED: METR500T PO (13:41)
[2017-04-14] MEDS ORDERED: CPR500 PO (13:41)
[2017-04-15] MEDS ORDERED: MTR500 PO (12:42)
[2017-04-15] MEDS ORDERED: CIPR1SUS PO (12:42)
[2017-04-27] MEDS ORDERED: CIPR1SUS PO (14:06)
[2017-04-27] MEDS ORDERED: MTR500 PO (14:06)
[2017-06-06] MEDS ORDERED: CPRS5005 PO (16:41)
[2017-06-06] MEDS ORDERED: LCTX PO (16:41)
[2017-06-06] MEDS ORDERED: NYSS5 PO (16:41)
[2017-07-30] MEDS ORDERED: CHOL4POW5 PO (12:17)
== END 2016-12-05 14:04 | disposition home or self-care (01) ==
LOC: C.EDB 11:55 → C.EDC 14:04
DX: K57.32 Diverticulitis of large intestine without perforation or abscess without bleeding (principal); R30.0 Dysuria; K22.70 Barrett's esophagus without dysplasia; Z85.3 Personal history of malignant neoplasm of breast; K21.9 Gastro-esophageal reflux disease without esophagitis; E78.5 Hyperlipidemia, unspecified; I10 Essential (primary) hypertension; E03.9 Hypothyroidism, unspecified; Z87.440 Personal history of urinary (tract) infections; Z90.49 Acquired absence of other specified parts of digestive tract; Z80.9 Family history of malignant neoplasm, unspecified; Z87.891 Personal history of nicotine dependence; Z79.899 Other long term (current) drug therapy

== ENCOUNTER → 2017-01-31 | Outpatient (CLI) | payer BC ==
[~2017-01-31] MED LIST changes: +AGMUDL4005 PO; +ATV5X PO; +CALCTAB7 PO; +CHOL400C10 PO; +CHOL4POW5 PO; +CIPR1SUS PO; +CPR500 PO; +CPRS5005 PO; +DIPH1TAB87 PO; +DIPH38TA PO; +FLUC200T PO; +FLUT0.15 NAE; +LCTX PO; +METR-162 PO; +METR500T PO; +METRONIDAZOLE PO; +MTR500 PO; +NRV/5 PO; +NYSS5 PO; +VANC1CAP3 PO; +VNCSEMP PO; +vancomycin susp PO
== END | disposition home or self-care (01) ==
LOC: C.LABSPEC 07:50
PROVIDERS: ATTEND Family Medicine
DX: A09 Infectious gastroenteritis and colitis, unspecified (principal)

== ENCOUNTER 2017-02-09 21:20 | Inpatient (IN) | payer BC, OTHER ==
[~2017-02-09] VITALS: Ht 154.9 cm; Wt 83.2 kg
[~2017-02-09 21:20] MED LIST changes: -AGMUDL4005 PO; -CALCTAB7 PO; -CHOL400C10 PO; -CHOL4POW5 PO; -CIPR1SUS PO; -CPR500 PO; -CPRS5005 PO; -DIPH1TAB87 PO; -DIPH38TA PO; -FLUC200T PO; -FLUT0.15 NAE; -LCTX PO; -METR500T PO; -METRONIDAZOLE PO; -MTR500 PO; -NRV/5 PO; -NYSS5 PO; -VNCSEMP PO; -vancomycin susp PO
--- NOTE | 2017-02-09 22:28 | EMERGENCY ROOM VISIT NOTE ---
History Report prepared by Aracelis: Chad Crowell Under the Supervision of: Dr. Jaun Enriquez D.O. First contact with patient: 22:11 Chief Complaint: DIARRHEA Stated Complaint: C-DIFF History of Present Illness The patient is a 71 year old female who presents to the Emergency Room with complaints of persistent diarrhea that began roughly one week prior to this visit. The patient states that she is currently taking a prescription of Flagyl for confirmed C-difficile. She claims that her C-diff was confirmed after antibiotic use following a dental infection. She has had C-difficile twice in the past, and was hospitalized during one previous episode. The patient is also currently complaining of a fever, nausea, and weakness. She notes that her urine has been significantly darker than usual as of lately. Source of History: patient Onset: One week [facility] CUTTER Position: other (Gastrointestinal ) Quality: other (Diarrhea ) Timing: other (Persistent) Associated Symptoms: + fevers, + nausea, + urinary symptoms, + weakness Review of Systems See HPI for pertinent positives and negatives. A total of ten systems were reviewed and were otherwise negative. 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 (11) Urin Tract Infection Nos Surgical Problems: (1) H/O hernia repair (2) H/O knee surgery (3) History of appendectomy (4) Hx of tonsillectomy (5) S/P cholecystectomy Family History Cancer Social History Smoking Status: Former Smoker Alcohol Use: none Drug Use: none Marital Status: Housing Status: lives with family Occupation Status: retired Current/Historical Medications Scheduled Amlodipine Besylate (Amlodipine Besylate), 10 MG PO QPM Cholecalciferol (Vitamin D 400), 400 UNITS PO DAILY Lansoprazole (Prevacid Solutab), 30 MG PO QPM Levothyroxine Sodium (Levothyroxine Sodium), 100 MCG PO DAILY Losartan Potassium (Cozaar), 100 MG PO DAILY Metronidazole (Flagyl), 500 MG PO TID Vancomycin Hcl (Vancomycin), 250 MG PO QID Scheduled PRN Diphenhydramine Hcl (Benadryl Allergy), 25 MG PO DAILY PRN for allergies Fluticasone Propionate (Nasal) (Flonase Allergy Relief), 2 SPRY RUSH DAILY PRN for allergies Lorazepam (Lorazepam), 0.5 MG PO BID PRN for Anxiety Allergies Coded Allergies: Iodinated Diagnostic Agents (Verified Allergy, Severe, sob, 02/09/17) Azithromycin (Verified Allergy, Intermediate, RASH, 02/09/17) Levalbuterol Hydrochloride (Verified Allergy, Intermediate, CHEST PAIN, 07/18) Minocycline (Verified Allergy, Intermediate, RASH, 02/09/17) Iodine (Verified Allergy, Mild, IV CONTRAST, 02/09/17) Cefaclor (Verified Allergy, Unknown, HIVES, 02/09/17) Erythromycin (Verified Allergy, Unknown, HIVES, 02/09/17) Nitrofurantoin (Verified Allergy, Unknown, 02/09/17) Phenazopyridine (Verified Allergy, Unknown, sob, 02/09/17) Sulfa Antibiotics (Verified Allergy, Unknown, HIVES, 02/09/17) Levofloxacin (Verified Adverse Reaction, Intermediate, ABDOMINAL PAIN, 07/18) Morphine (Verified Adverse Reaction, Intermediate, EXCESSIVE VOMITING, 07/18) Pt. states excessive vomiting with this medication Physical Exam Vital Signs Date Time Temp Pulse Resp B/P (MAP) Pulse Ox O2 Delivery O2 Flow Rate FiO2 02/09/17 23:29 74 18 135/75 97 Room Air 83 150/70 76 162/77 02/09/17 22:45 83 02/09/17 22:44 Room Air 02/09/17 22:44 Room Air 02/09/17 21:27 36.7 93 18 162/78 96 Room Air Physical Exam GENERAL: Awake, alert, well-appearing, in no distress HENT: Normocephalic, atraumatic. Oropharynx unremarkable. EYES: Normal conjunctiva. Sclera non-icteric. NECK: Supple. No nuchal rigidity. FROM. No JVD. RESPIRATORY: Clear to auscultation. CARDIAC: Regular rate, normal rhythm. Extremities warm and well perfused. Pulses equal. ABDOMEN: Soft, non-distended. No tenderness to palpation. No rebound or guarding. No masses. RECTAL: Deferred. MUSCULOSKELETAL: Chest examination reveals no tenderness. The back is symmetrical on inspection without obvious abnormality. There is no CVA tenderness to palpation. No joint edema. LOWER EXTREMITIES: Calves are equal size bilaterally and non-tender. No edema. No discoloration. NEURO: Normal sensorium. No sensory or motor deficits noted. SKIN: No rash or jaundice noted. Medical Decision & Procedures Laboratory Results 02/10/17 00:16 Red Blood Count 4.70, Mean Corpuscular Volume 81.5, Mean Corpuscular Hemoglobin 26.4, Mean Corpuscular Hemoglobin Concent 32.4, Mean Platelet Volume 9.6, Neutrophils (%) (Auto) 63.7, Lymphocytes (%) (Auto) 24.9, Monocytes (%) (Auto) 7.2, Eosinophils (%) (Auto) 3.7, Basophils (%) (Auto) 0.4, Neutrophils # (Auto) 4.24, Lymphocytes # (Auto) 1.66, Monocytes # (Auto) 0.48, Eosinophils # (Auto) 0.25, Basophils # (Auto) 0.03 02/09/17 23:16 Test 02/09/17 22:25 02/09/17 22:42 02/09/17 23:16 02/10/17 00:16 Urine Color ORANGE Urine Appearance CLEAR (CLEAR) Urine pH 5.5 (4.5-7.5) Urine Specific [place] 1.023 (1.000-1.030) Urine Protein NEG (NEG) Urine Glucose (UA) NEG (NEG) Urine Ketones TRACE (NEG) Urine Occult Blood NEG (NEG) Urine Nitrite POS (NEG) Urine Bilirubin NEG (NEG) Urine Urobilinogen NEG (NEG) Urine Leukocyte Esterase MODERATE (NEG) Urine WBC (Auto) 10-30 /hpf (0-5) Urine RBC (Auto) 0-4 /hpf (0-4) Urine Hyaline Casts (Auto) 10-30 /lpf (0-5) Urine Epithelial Cells (Auto) >30 /lpf (0-5) Urine Bacteria (Auto) NEG (NEG) Bedside Glucose 115 mg/dl (70-90) Anion Gap 15.0 mmol/L (3-11) Est Creatinine Clear Calc Drug Dose 60.4 ml/min Estimated GFR () 89.4 Estimated GFR (Non- 77.1 BUN/Creatinine Ratio 18.8 (10-20) Calcium Level 8.4 mg/dl (8.5-10.1) Total Bilirubin 0.3 mg/dl (0.2-1) Direct Bilirubin < 0.1 mg/dl (0-0.2) Aspartate Amino Transf (AST/SGOT) 25 U/L (15-37) Alanine Aminotransferase (ALT/SGPT) 34 U/L (12-78) Alkaline Phosphatase 90 U/L (45-117) Total Protein 6.9 gm/dl (6.4-8.2) Albumin 3.6 gm/dl (3.4-5.0) Thyroid Stimulating Hormone (TSH) 0.830 uIu/ml (0.300-4.500) White Blood Count 6.67 K/uL (4.8-10.8) Red Blood Count 4.70 M/uL (4.2-5.4) Hemoglobin 12.4 g/dL (12.0-16.0) Hematocrit 38.3 % (37-47) Mean Corpuscular Volume 81.5 fL (80-100) Mean Corpuscular Hemoglobin 26.4 pg (25-34) Mean Corpuscular Hemoglobin Concent 32.4 g/dl (32-36) Platelet Count 268 K/uL (130-400) Mean Platelet Volume 9.6 fL (7.4-10.4) Neutrophils (%) (Auto) 63.7 % Lymphocytes (%) (Auto) 24.9 % Monocytes (%) (Auto) 7.2 % Eosinophils (%) (Auto) 3.7 % Basophils (%) (Auto) 0.4 % Neutrophils # (Auto) 4.24 K/uL (1.4-6.5) Lymphocytes # (Auto) 1.66 K/uL (1.2-3.4) Monocytes # (Auto) 0.48 K/uL (0.11-0.59) Eosinophils # (Auto) 0.25 K/uL (0-0.5) Basophils # (Auto) 0.03 K/uL (0-0.2) RDW Standard Deviation 43.1 fL (36.4-46.3) RDW Coefficient of Variation 14.3 % (11.5-14.5) Immature Granulocyte % (Auto) 0.1 % Immature Granulocyte # (Auto) 0.01 K/uL (0.00-0.02) Laboratory results reviewed by me Medications Administered Medications (Trade) Dose Ordered Sig/Barb Route Start Time Stop Time Status Last Admin Dose Admin Sodium Chloride 1,000 ml @ 999 mls/hr Q1H1M STAT IV 02/09/17 22:30 02/09/17 23:30 DC 02/09/17 22:48 999 MLS/HR ECG Indication: weakness Rate (beats per minute): 73 Rhythm: sinus rhythm Findings: RBBB (incomplete), no acute ischemic change, other (Normal [place]) ED Course 2218: The patient was evaluated in room B2. A complete history and physical exam was performed. 2229: Ordered Sodium Chloride 1000 mL @ 999 mL/hr IV. 0117: I discussed the case with Dr. Gurdeep Shah at this time , he will evaluate the patient for further treatment. Medical Decision Blood pressure screening: Patient was found to have an elevated blood pressure and was referred to their primary doctor for recheck and further treatment. Medication Reconciliation: I attest that I have personally reviewed the patient' s current medication list. Differential Diagnosis include; C-difficile colitis, electrolyte imbalance, dehydration, and gastroenteritis. Patient's medications reviewed, patient started on IV fluids, given vancomycin solution. Case was discussed with the hospitalist for admission due to dehydration dizziness and continued C. difficile colitis Consults Time Called: 109 Consulting Physician: Dr. Albino Shah Returned Call: [phone] I discussed the case with Dr. Gurdeep Shah at this time, he will evaluate the patient for further treatment. Impression Primary Impression: Dehydration Additional Impression: C. difficile colitis Scribe Attestation The scribe's documentation has been prepared under my direction and personally reviewed by me in its entirety. I confirm that the note above accurately reflects all work, treatment, procedures, and medical decision making performed by me. Departure Information Dispostion Being Evaluated By Hospitalist Referrals Sophie Mazariegos M.D. (PCP) Patient Instructions My [facility] Problem Qualifiers
[2017-02-09] MEDS ORDERED: SODIUM CHLORIDE 0.9% 1000ML 1,000 ML IV STA (22:30)
[2017-02-09 22:51] LABS: URINE APPEARANCE CLEAR (CLEAR); URINE COLOR ORANGE; URINE EPITHELIAL CELL AUTO >30 /lpf (0-5); URINE NITRITE POS (NEG); URINE PH 5.5 (4.5-7.5); URINE SPECIFIC GRAVITY 1.023 (1.000-1.030); UROBILINOGEN NEG (NEG)
[2017-02-09 22:52] LABS: MANUAL MICROSCOPIC REQUIRED? NO; REVIEW REQ? NO
[2017-02-09 22:53] LABS: URINE BILIRUBIN NEG (NEG)
[2017-02-09] MEDS ORDERED: CHOL400C10 PO (23:42)
[2017-02-09] MEDS ORDERED: NRV/5 PO (23:46)
[2017-02-09] MEDS ORDERED: FLUT0.15 NAE (23:47)
[2017-02-09] MEDS ORDERED: DIPH1TAB87 PO (23:47)
[2017-02-10 00:18] LABS: ALT/SGPT 34 U/L (12-78); AST/SGOT 25 U/L (15-37); BLOOD UREA NITROGEN 14 mg/dl (7-18); BUN/CREATININE RATIO 18.8 (10-20); CALCIUM 8.4 mg/dl (8.5-10.1); CARBON DIOXIDE 21 mmol/L (21-32); CHLORIDE 107 mmol/L (98-107); CREATININE 0.77 mg/dl (0.60-1.20); GLUCOSE 104 mg/dl (70-99); POTASSIUM 3.6 mmol/L (3.5-5.1); SODIUM 143 mmol/L (136-145)
[2017-02-10 00:26] LABS: ALKALINE PHOSPHATASE 90 U/L (45-117)
[2017-02-10 00:27] LABS: BASO % 0.4 %; BASO ABS # 0.03 K/uL (0-0.2); COMPLETE YES; EOS % 3.7 %; HEMATOCRIT 38.3 % (37-47); IG% 0.1 %; LYMPH % 24.9 %; LYMPH ABS # 1.66 K/uL (1.2-3.4); MEAN CELL VOLUME 81.5 fL (80-100); MEAN CORPUSCULAR HEMOGLOBIN 26.4 pg (25-34); MEAN CORPUSCULAR HGB CONC 32.4 g/dl (32-36); MEAN PLATELET VOLUME 9.6 fL (7.4-10.4); MONO % 7.2 %; NEUT % 63.7 %; PLATELET COUNT 268 K/uL (130-400); WHITE BLOOD COUNT 6.67 K/uL (4.8-10.8)
[2017-02-10] MEDS ORDERED: RASPBERRY SYRUP 5 ML UDP PO STA (01:19)
[2017-02-10] MEDS ORDERED: VANCOMYCIN HCL 250 MG/5 ML SOLN PO STA (01:19)
[2017-02-10] MEDS ORDERED: LORAZEPAM 0.5 MG TAB PO PRN (03:00)
[2017-02-10] MEDS ORDERED: ACETAMINOPHEN 325 MG TAB PO PRN (03:00)
[2017-02-10] MEDS ORDERED: ONDANSETRON INJ 2 MG/ML 2 ML VIAL IV PRN (03:00)
[2017-02-10 03:15] VITALS: BP 142/78; PULSE 65; TEMP 36.5; O2SAT 95; Ht 154.9 cm; Wt 83.2 kg
[2017-02-10] MEDS: SODIUM CHLORIDE 0.9% 1000ML 1,000 ML IV SCH ×2 (04:21→13:37)
--- NOTE | 2017-02-10 04:21 | History and Physical ---
History & Physical Date & Time of Service: Feb 10, 2017 at 03:59 Chief Complaint: C.difficile Colitis Primary Care Physician: Sophie Mazariegos M.D. History of Present Illness Source: patient, clinic records, hospital records This is a 71 year old female with a PMH of HTN, hypothyroidism, Suarez's esophagus, hx. of diverticulitis and C. Diff colitis presents to the ER due to worsening diarrhea; she had been having diarrhea and stool studies ordered as per PCP; found to have C. diff on January 31; and was prescribed PO vanco solution; states that it tasted terribly and could not tolerate it; she was then prescribed Flagyl, but this did not work and her diarrhea worsened; she then had vancomycin capsules prescribed, but she could not tolerate these due to her Suarez's esophagus; she was on vacation in [place] and was continuing to take Flagyl - but she had worsening diarrhea to about 15 times daily; abdominal cramping; no fevers/chills. Denies chest pain/shortness of breath. She had also been c/o dizziness and dark urine. 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 Status: Resolved (11) Urin Tract Infection Nos Status: Resolved Surgical Problems: (1) H/O hernia repair Status: Chronic (2) H/O knee surgery Status: Chronic (3) History of appendectomy Status: Resolved (4) Hx of tonsillectomy Status: Chronic (5) S/P cholecystectomy Status: Chronic Family History Cancer Social History Smoking Status: Former Smoker Drug Use: none Marital Status: Housing status: lives with family Occupational Status: retired Immunizations History of Influenza Vaccine: Unknown History of Tetanus Vaccine?: Unknown History of Pneumococcal: Unknown History of Hepatitis B Vaccine: Unknown Multi-Drug Resistant Organisms History of MDRO: No Allergies Coded Allergies: Iodinated Diagnostic Agents (Verified Allergy, Severe, sob, 02/09/17) Azithromycin (Verified Allergy, Intermediate, RASH, 02/09/17) Levalbuterol Hydrochloride (Verified Allergy, Intermediate, CHEST PAIN, 07/18) Minocycline (Verified Allergy, Intermediate, RASH, 02/09/17) Iodine (Verified Allergy, Mild, IV CONTRAST, 02/09/17) Cefaclor (Verified Allergy, Unknown, HIVES, 02/09/17) Erythromycin (Verified Allergy, Unknown, HIVES, 02/09/17) Nitrofurantoin (Verified Allergy, Unknown, 02/09/17) Phenazopyridine (Verified Allergy, Unknown, sob, 02/09/17) Sulfa Antibiotics (Verified Allergy, Unknown, HIVES, 02/09/17) Levofloxacin (Verified Adverse Reaction, Intermediate, ABDOMINAL PAIN, 07/18) Morphine (Verified Adverse Reaction, Intermediate, EXCESSIVE VOMITING, 07/18) Pt. states excessive vomiting with this medication Home Medications Scheduled Amlodipine Besylate (Amlodipine Besylate), 10 MG PO QPM Cholecalciferol (Vitamin D 400), 400 UNITS PO DAILY Lansoprazole (Prevacid Solutab), 30 MG PO QPM Levothyroxine Sodium (Levothyroxine Sodium), 100 MCG PO DAILY Losartan Potassium (Cozaar), 100 MG PO DAILY Metronidazole (Flagyl), 500 MG PO TID Vancomycin Hcl (Vancomycin), 250 MG PO QID Scheduled PRN Diphenhydramine Hcl (Benadryl Allergy), 25 MG PO DAILY PRN for allergies Fluticasone Propionate (Nasal) (Flonase Allergy Relief), 2 SPRY RUSH DAILY PRN for allergies Lorazepam (Lorazepam), 0.5 MG PO BID PRN for Anxiety Review of Systems Constitutional: No fever, No chills, No weakness, No fatigue Respiratory: No cough, No sputum, No wheezing, No shortness of breath, No dyspnea on exertion, No dyspnea at rest, No hemoptysis Cardiovascular: No chest pain, No edema, No palpitations Abdomen: + pain, + nausea, + diarrhea, No vomiting, No constipation, No GI bleeding Musculoskeletal: No joint pain Genitourinary - Female: No dysuria, No urinary frequency, No urinary urgency, No urinary incontinence, No urinary retention, No hematuria Neurologic: + problem reported (dizziness), No weakness, No numbness/tingling, No vertigo, No balance problems Psychiatric: No depression symptoms Hematologic / Lymphatic: No abnormal bleeding/bruising Integumentary: No rash Allergic / Immunologic: No environmental allergies, No seasonal allergies Physical Exam Vital Signs Date Time Temp Pulse Resp B/P (MAP) Pulse Ox O2 Delivery O2 Flow Rate FiO2 02/10/17 03:14 36.7 69 18 131/59 99 02/10/17 02:06 68 02/10/17 01:50 70 18 135/66 97 Room Air 02/09/17 23:29 74 18 135/75 97 Room Air 83 150/70 76 162/77 02/09/17 22:45 83 02/09/17 22:44 Room Air 02/09/17 22:44 Room Air 02/09/17 21:27 36.7 93 18 162/78 96 Room Air General Appearance: no apparent distress Head: normocephalic, atraumatic Eyes: normal inspection ENT: hearing grossly normal Respiratory/Chest: chest non-tender, lungs clear, normal breath sounds, no respiratory distress, no accessory muscle use Cardiovascular: regular rate, rhythm, no edema, no murmur Abdomen/GI: soft, + tenderness (diffusely tender to deep palpation), + abnormal bowel sounds (hyperactive) Extremities/Musculoskelatal: normal capillary refill, no pedal edema Neurologic/Psych: no motor/sensory deficits, alert, normal mood/affect Skin: normal color Lymphatic: no adenopathy Diagnostics Laboratory Results Results Past 24 Hours Test 02/09/17 22:25 02/09/17 22:42 02/09/17 23:16 02/10/17 00:16 Range/Units Urine Color ORANGE Urine Appearance CLEAR CLEAR Urine pH 5.5 4.5-7.5 Urine Specific [place] 1.023 1.000-1.030 Urine Protein NEG NEG Urine Glucose (UA) NEG NEG Urine Ketones TRACE NEG Urine Occult Blood NEG NEG Urine Nitrite POS NEG Urine Bilirubin NEG NEG Urine Urobilinogen NEG NEG Urine Leukocyte Esterase MODERATE NEG Urine WBC (Auto) 10-30 0-5 /hpf Urine RBC (Auto) 0-4 0-4 /hpf Urine Hyaline Casts (Auto) 10-30 0-5 /lpf Urine Epithelial Cells (Auto) >30 0-5 /lpf Urine Bacteria (Auto) NEG NEG Bedside Glucose 115 70-90 mg/dl Sodium Level 143 136-145 mmol/L Potassium Level 3.6 3.5-5.1 mmol/L Chloride Level 107 98-107 mmol/L Carbon Dioxide Level 21 21-32 mmol/L Anion Gap 15.0 3-11 mmol/L Blood Urea Nitrogen 14 7-18 mg/dl Creatinine 0.77 0.60-1.20 mg/dl Est Creatinine Clear Calc Drug Dose 60.4 ml/min Estimated GFR () 89.4 Estimated GFR (Non- 77.1 BUN/Creatinine Ratio 18.8 10-20 Random Glucose 104 70-99 mg/dl Calcium Level 8.4 8.5-10.1 mg/dl Total Bilirubin 0.3 0.2-1 mg/dl Direct Bilirubin < 0.1 0-0.2 mg/dl Aspartate Amino Transf (AST/SGOT) 25 15-37 U/L Alanine Aminotransferase (ALT/SGPT) 34 12-78 U/L Alkaline Phosphatase 90 45-117 U/L Total Protein 6.9 6.4-8.2 gm/dl Albumin 3.6 3.4-5.0 gm/dl Thyroid Stimulating Hormone (TSH) 0.830 0.300-4.500 uIu/ml White Blood Count 6.67 4.8-10.8 K/uL Red Blood Count 4.70 4.2-5.4 M/uL Hemoglobin 12.4 12.0-16.0 g/dL Hematocrit 38.3 37-47 % Mean Corpuscular Volume 81.5 80-100 fL Mean Corpuscular Hemoglobin 26.4 25-34 pg Mean Corpuscular Hemoglobin Concent 32.4 32-36 g/dl Platelet Count 268 130-400 K/uL Mean Platelet Volume 9.6 7.4-10.4 fL Neutrophils (%) (Auto) 63.7 % Lymphocytes (%) (Auto) 24.9 % Monocytes (%) (Auto) 7.2 % Eosinophils (%) (Auto) 3.7 % Basophils (%) (Auto) 0.4 % Neutrophils # (Auto) 4.24 1.4-6.5 K/uL Lymphocytes # (Auto) 1.66 1.2-3.4 K/uL Monocytes # (Auto) 0.48 0.11-0.59 K/uL Eosinophils # (Auto) 0.25 0-0.5 K/uL Basophils # (Auto) 0.03 0-0.2 K/uL RDW Standard Deviation 43.1 36.4-46.3 fL RDW Coefficient of Variation 14.3 11.5-14.5 % Immature Granulocyte % (Auto) 0.1 % Immature Granulocyte # (Auto) 0.01 0.00-0.02 K/uL Microbiology Results 02/09/17 Blood Culture, Received Pending 02/09/17 Blood Culture, Received Pending Impression Assessment and Plan This is a 71 year old female with a PMH of HTN, hypothyroidism, Suarez's esophagus, hx. of diverticulitis and C. Diff colitis presents with recurrent C. diff Recurrent C. Diff Infection +C diff on January 31 worsening C. diff diarrhea with Flagyl, could not tolerate Vanco capsules will try Vanco solution QID patient has had C. Diff twice before already will likely need a tapering Vancomycin dose IVFs due to concentrated urine, dizziness, dehydrated Suarez's Esophagus continue PPI Lozenge for thrush HTN continue home meds Hypothyroidism continue Synthroid DVT ppx SCDs FULL CODE VTE Prophylaxis VTE Risk Assessment Done? Y/N: Yes Risk Level: Moderate
[2017-02-10] MEDS: LEVOTHYROXINE 100 MCG TAB PO SCH (06:09)
[2017-02-10] MEDS: CLOTRIMAZOLE 10 MG TROCHE MT SCH ×5 (06:09→23:59)
[2017-02-10 07:28] VITALS: BP 111/67; PULSE 57; TEMP 36.6; O2SAT 94
[2017-02-10] MEDS: RASPBERRY SYRUP 5 ML UDP PO SCH ×4 (08:33→21:10)
[2017-02-10] MEDS: VANCOMYCIN HCL 250 MG/5 ML SOLN PO SCH ×4 (08:33→21:18)
[2017-02-10] MEDS: LOSARTAN POTASSIUM 50 MG TAB PO SCH (08:33)
[2017-02-10 15:42] VITALS: BP 143/78; PULSE 63; TEMP 37; O2SAT 98
--- NOTE | 2017-02-10 16:16 | Progress Note ---
Medicine Progress Note Date & Time of Visit: Feb 10, 2017 at 14:26. Subjective This is a 71 year old female with a PMH of HTN, hypothyroidism, Suarez's esophagus, hx. of diverticulitis and C. Diff colitis presents with recurrent C. diff -recent PCN use for dental infection -c-diff diagnosed on 01/31, but couldn't tolerate or didn't take therapy until she was back from her vacation recently -by that time things had gotten worse and she came into the hospital -currently feeling much better with improvement/resolution of diarrhea -denies fevers, chills, or abdominal pain, corroborated on exam -is asking for solid foods so will advance her diet. -asking about probiotics use and would like to try if able. Objective Last 8 Hrs Date Time Temp Pulse Resp B/P (MAP) Pulse Ox O2 Delivery O2 Flow Rate FiO2 02/10/17 08:00 Room Air 02/10/17 07:28 36.6 57 18 111/67 (82) 94 Room Air Physical Exam: GEN: WNWD, in no acute distress, alert and appropriate HEENT: NC/AT, normal sclerae, pharynx non acute, no thrush present, MMM CARDIO: reg rate, S1/2 heard without m/g/r LUNGS: CTA bilaterally, no crackles, rales or wheezes, good diaphragmatic excursion ABD: soft, non-tender, non-distended, no rebound or guarding, +BS EXTREMITY: RP and DP palpable 2+ bilat, no LE swelling or edema, extremities are warm and well-perfused NEURO: CN 2-12 grossly intact, no gross focal deficits. MUSC: 5/5 strength throughout, no gross focal deficits SKIN: warm and dry Laboratory Results: 02/10/17 00:16 Red Blood Count 4.70, Mean Corpuscular Volume 81.5, Mean Corpuscular Hemoglobin 26.4, Mean Corpuscular Hemoglobin Concent 32.4, Mean Platelet Volume 9.6, Neutrophils (%) (Auto) 63.7, Lymphocytes (%) (Auto) 24.9, Monocytes (%) (Auto) 7.2, Eosinophils (%) (Auto) 3.7, Basophils (%) (Auto) 0.4, Neutrophils # (Auto) 4.24, Lymphocytes # (Auto) 1.66, Monocytes # (Auto) 0.48, Eosinophils # (Auto) 0.25, Basophils # (Auto) 0.03 02/09/17 23:16 Test 02/09/17 22:25 02/09/17 22:42 02/09/17 23:16 02/10/17 00:16 Urine Color ORANGE Urine Appearance CLEAR (CLEAR) Urine pH 5.5 (4.5-7.5) Urine Specific [place] 1.023 (1.000-1.030) Urine Protein NEG (NEG) Urine Glucose (UA) NEG (NEG) Urine Ketones TRACE (NEG) Urine Occult Blood NEG (NEG) Urine Nitrite POS (NEG) Urine Bilirubin NEG (NEG) Urine Urobilinogen NEG (NEG) Urine Leukocyte Esterase MODERATE (NEG) Urine WBC (Auto) 10-30 /hpf (0-5) Urine RBC (Auto) 0-4 /hpf (0-4) Urine Hyaline Casts (Auto) 10-30 /lpf (0-5) Urine Epithelial Cells (Auto) >30 /lpf (0-5) Urine Bacteria (Auto) NEG (NEG) Bedside Glucose 115 mg/dl (70-90) Anion Gap 15.0 mmol/L (3-11) Est Creatinine Clear Calc Drug Dose 60.4 ml/min Estimated GFR () 89.4 Estimated GFR (Non- 77.1 BUN/Creatinine Ratio 18.8 (10-20) Calcium Level 8.4 mg/dl (8.5-10.1) Total Bilirubin 0.3 mg/dl (0.2-1) Direct Bilirubin < 0.1 mg/dl (0-0.2) Aspartate Amino Transf (AST/SGOT) 25 U/L (15-37) Alanine Aminotransferase (ALT/SGPT) 34 U/L (12-78) Alkaline Phosphatase 90 U/L (45-117) Total Protein 6.9 gm/dl (6.4-8.2) Albumin 3.6 gm/dl (3.4-5.0) Thyroid Stimulating Hormone (TSH) 0.830 uIu/ml (0.300-4.500) White Blood Count 6.67 K/uL (4.8-10.8) Red Blood Count 4.70 M/uL (4.2-5.4) Hemoglobin 12.4 g/dL (12.0-16.0) Hematocrit 38.3 % (37-47) Mean Corpuscular Volume 81.5 fL (80-100) Mean Corpuscular Hemoglobin 26.4 pg (25-34) Mean Corpuscular Hemoglobin Concent 32.4 g/dl (32-36) Platelet Count 268 K/uL (130-400) Mean Platelet Volume 9.6 fL (7.4-10.4) Neutrophils (%) (Auto) 63.7 % Lymphocytes (%) (Auto) 24.9 % Monocytes (%) (Auto) 7.2 % Eosinophils (%) (Auto) 3.7 % Basophils (%) (Auto) 0.4 % Neutrophils # (Auto) 4.24 K/uL (1.4-6.5) Lymphocytes # (Auto) 1.66 K/uL (1.2-3.4) Monocytes # (Auto) 0.48 K/uL (0.11-0.59) Eosinophils # (Auto) 0.25 K/uL (0-0.5) Basophils # (Auto) 0.03 K/uL (0-0.2) RDW Standard Deviation 43.1 fL (36.4-46.3) RDW Coefficient of Variation 14.3 % (11.5-14.5) Immature Granulocyte % (Auto) 0.1 % Immature Granulocyte # (Auto) 0.01 K/uL (0.00-0.02) Date/Time Source Procedure Growth Status 02/09/17 23:16 Blood Blood Culture Pending Received Last 24 Hours Test 02/09/17 22:25 02/09/17 22:42 02/09/17 23:16 02/10/17 00:16 Urine Color ORANGE Urine Appearance CLEAR Urine pH 5.5 Urine Specific [place] 1.023 Urine Protein NEG Urine Glucose (UA) NEG Urine Ketones TRACE Urine Occult Blood NEG Urine Nitrite POS Urine Bilirubin NEG Urine Urobilinogen NEG Urine Leukocyte Esterase MODERATE Urine WBC (Auto) 10-30 /hpf Urine RBC (Auto) 0-4 /hpf Urine Hyaline Casts (Auto) 10-30 /lpf Urine Epithelial Cells (Auto) >30 /lpf Urine Bacteria (Auto) NEG Bedside Glucose 115 mg/dl Sodium Level 143 mmol/L Potassium Level 3.6 mmol/L Chloride Level 107 mmol/L Carbon Dioxide Level 21 mmol/L Anion Gap 15.0 mmol/L Blood Urea Nitrogen 14 mg/dl Creatinine 0.77 mg/dl Est Creatinine Clear Calc Drug Dose 60.4 ml/min Estimated GFR () 89.4 Estimated GFR (Non- 77.1 BUN/Creatinine Ratio 18.8 Random Glucose 104 mg/dl Calcium Level 8.4 mg/dl Total Bilirubin 0.3 mg/dl Direct Bilirubin < 0.1 mg/dl Aspartate Amino Transf (AST/SGOT) 25 U/L Alanine Aminotransferase (ALT/SGPT) 34 U/L Alkaline Phosphatase 90 U/L Total Protein 6.9 gm/dl Albumin 3.6 gm/dl Thyroid Stimulating Hormone (TSH) 0.830 uIu/ml White Blood Count 6.67 K/uL Red Blood Count 4.70 M/uL Hemoglobin 12.4 g/dL Hematocrit 38.3 % Mean Corpuscular Volume 81.5 fL Mean Corpuscular Hemoglobin 26.4 pg Mean Corpuscular Hemoglobin Concent 32.4 g/dl Platelet Count 268 K/uL Mean Platelet Volume 9.6 fL Neutrophils (%) (Auto) 63.7 % Lymphocytes (%) (Auto) 24.9 % Monocytes (%) (Auto) 7.2 % Eosinophils (%) (Auto) 3.7 % Basophils (%) (Auto) 0.4 % Neutrophils # (Auto) 4.24 K/uL Lymphocytes # (Auto) 1.66 K/uL Monocytes # (Auto) 0.48 K/uL Eosinophils # (Auto) 0.25 K/uL Basophils # (Auto) 0.03 K/uL RDW Standard Deviation 43.1 fL RDW Coefficient of Variation 14.3 % Immature Granulocyte % (Auto) 0.1 % Immature Granulocyte # (Auto) 0.01 K/uL Date/Time Source Procedure Growth Status 02/09/17 23:16 Blood Blood Culture Pending Received 02/09/17 22:55 Blood Blood Culture Pending Received Assessment & Plan This is a 71 year old female with a PMH of HTN, hypothyroidism, Suarez's esophagus, hx. of diverticulitis and C. Diff colitis presents with recurrent C. diff Recurrent C. Diff Infection +C diff on January 31 worsening C. diff diarrhea with Flagyl, could not tolerate Vanco capsules will try Vanco solution QID patient has had C. Diff twice before already will likely need a tapering Vancomycin dose IVFs due to concentrated urine, dizziness, dehydrated -improved today with improvement in diarrhea and resolution of abdominal pain -advancing diet to solid foods (no dairy) Suarez's Esophagus continue PPI Lozenge for thrush which is resolved now, but will cont another day to complete a 10 day course. HTN controlled, continue home meds Hypothyroidism stable, continue Synthroid DVT ppx-Lovenox FULL CODE Dispo-likely to home in am. Hortencia Jasso DO [facility] Hospitalist Current Inpatient Medications: Current Inpatient Medications Medications (Trade) Dose Ordered Sig/Barb Route Start Time Stop Time Status Last Admin Dose Admin Acetaminophen (Tylenol Tab) 650 mg Q4H PRN PO 02/10/17 03:00 03/12/17 02:59 Ondansetron HCl (Zofran Inj) 4 mg Q6H PRN IV 02/10/17 03:00 03/12/17 02:59 02/10/17 04:00 4 MG Amlodipine Besylate (Norvasc Tab) 10 mg QPM PO 02/10/17 21:00 03/12/17 20:59 Lansoprazole (Prevacid Solutab) 30 mg QPM PO 02/10/17 21:00 03/12/17 20:59 Levothyroxine Sodium (Synthroid Tab) 100 mcg DAILYBB PO 02/10/17 06:30 03/12/17 06:29 02/10/17 06:09 100 MCG Lorazepam (Ativan Tab) 0.5 mg BID PRN PO 02/10/17 03:00 03/12/17 02:59 Losartan Potassium (coZAAR TAB) 100 mg DAILY PO 02/10/17 09:00 03/12/17 08:59 02/10/17 08:33 100 MG Vancomycin HCl (Vancomycin Oral Soln) 250 mg QID PO 02/10/17 09:00 02/24/17 08:59 02/10/17 11:22 250 MG Raspberry (Raspberry Syrup 5ml Cup) 5 ml QID PO 02/10/17 09:00 02/24/17 08:59 02/10/17 11:22 5 ML Sodium Chloride 1,000 ml @ 100 mls/hr Q10H IV 02/10/17 04:15 03/12/17 04:14 02/10/17 13:37 100 MLS/HR Clotrimazole (Mycelex 10MG Sung) 1 sung [id number] MT 02/10/17 07:00 03/12/17 06:59 02/10/17 11:22 1 SUNG
[2017-02-10 17:43] LABS: PARTIAL THROMBOPLASTIN RATIO 1.1; PROTHROMBIN TIME (PATIENT) 10.6 SECONDS (9.0-12.0)
[2017-02-10] MEDS ORDERED: ENOXAPARIN 40 MG/0.4 ML SYR SQ SCH (18:00)
[2017-02-10] MEDS ORDERED: AMLODIPINE BESYLATE 5 MG TAB PO SCH (21:00)
[2017-02-10] MEDS ORDERED: LANSOPRAZOLE SOLUTAB 30 MG PO SCH (21:00)
[2017-02-10 21:07] VITALS: BP 126/71; PULSE 52; O2SAT 95
[2017-02-10] MEDS: SACCHAROMYCES BOUL (FLORASTOR) 250 MG CAP PO SCH (21:09)
[2017-02-10 23:45] VITALS: BP 148/80; PULSE 58; TEMP 36.8; O2SAT 94
[2017-02-11] MEDS: CLOTRIMAZOLE 10 MG TROCHE MT SCH ×2 (06:31→10:25)
[2017-02-11] MEDS: LEVOTHYROXINE 100 MCG TAB PO SCH (06:31)
[2017-02-11 07:05] VITALS: BP 119/72; PULSE 57; TEMP 36.6; O2SAT 94
[2017-02-11] MEDS: VANCOMYCIN HCL 250 MG/5 ML SOLN PO SCH ×2 (07:49→12:28)
[2017-02-11] MEDS: RASPBERRY SYRUP 5 ML UDP PO SCH ×2 (07:49→12:28)
[2017-02-11] MEDS: SACCHAROMYCES BOUL (FLORASTOR) 250 MG CAP PO SCH (07:49)
[2017-02-11] MEDS: LOSARTAN POTASSIUM 50 MG TAB PO SCH (07:49)
[2017-02-11] MEDS ORDERED: NURSING VERBAL MED ORDER ONE (08:45)
[2017-02-11] MEDS ORDERED: MICONAZOLE NITRATE POWDER 43 GM EXT PRN (09:30)
[2017-02-11 10:58] VITALS: BP 119/72; PULSE 57; TEMP 36.6; O2SAT 94
[2017-02-11] MEDS ORDERED: VNCSEMP PO (12:53)
--- NOTE | 2017-02-11 12:59 | Discharge Instructions ---
Discharge Instructions Date of Service Feb 11, 2017. Admission Reason for Admission: C.difficile Colitis Discharge Discharge Diagnosis / Problem: c-diff colitis Discharge Goals Goal(s): Prevent Disease Progression Activity Recommendations Activity Limitations: per Instructions/Follow-up section . Instructions / Follow-Up Instructions / Follow-Up Please take all medications as instructed. Cont to observe good hand-washing practices using soap at home, especially around toileting and prior to any food preparation as discussed. I recommend OTC Mucinex and continuing Flonase daily for current nasal symptoms. I recommend obtaining a flavoring through your pharmacy of choice to allow the vancomycin suspension to be palatable. You were given raspberry flavoring in the hospital. You have been scheduled for a follow-up appointment with Dr. Sophie Mazariegos on 02/17 @ 1100 for follow-up of this hospitalization. Please bring all paperwork to this appointment with you. It was a pleasure taking care of you! Call if you have any questions or problems. You can reach a [facility] hospitalist on duty at [facility] 24 hours a day by calling [phone]. Take care of yourself. Hortencia Jasso DO [facility] Hospitalist Current Hospital Diet Patient's current hospital diet: AHA Diet (Heart Healthy) Discharge Diet Recommended Diet: AHA Diet (Heart Healthy) Procedures Procedures Performed: None. Pending Studies Studies pending at discharge: yes List of pending studies: final blood cultures haven't resulted; prelimiary are negative. Medical Emergencies . Who to Call and When: Medical Emergencies: If at any time you feel your situation is an emergency, please call 911 immediately. . Non-Emergent Contact Non-Emergency issues call your: Primary Care Provider . . "Provider Documentation" section prepared by Hortencia Jasso. . VTE Core Measure Inpt VTE Proph given/why not?: Enoxaparin (Lovenox)SQ
--- NOTE | 2017-02-11 13:02 | Discharge Summary ---
Discharge Summary Date of Service Feb 11, 2017. Discharge Summary Admission Date: Feb 10, 2017 at 02:56 Discharge Date: Feb 11, 2017 Discharge Disposition: Home Principal Diagnosis: C-diff colitis Suarez's esophagus HTN Hypothyroidism Procedures: None. Vaccinations: None. Consultations: None. Pending Studies/Follow-Up: see instructions below. Medication Reconciliation New Medications: Vancomycin HCl (Vancomycin HCl) 125 Mg/2.5 Ml Susp 125 MG PO QID for 8 Days, #120 ML 0 Refills Continued Medications: Amlodipine Besylate (Amlodipine Besylate) 5 Mg Tab 10 MG PO QPM 2 tablet dose Cholecalciferol (Vitamin D 400) 400 Unit Chw 400 UNITS PO DAILY Diphenhydramine Hcl (Benadryl Allergy) 25 Mg Tab 25 MG PO DAILY PRN for allergies Fluticasone Propionate (Nasal) (Flonase Allergy Relief) 50 Mcg/Act Spr 2 SPRY RUSH DAILY Lansoprazole (Prevacid Solutab) 30 Mg [place] 30 MG PO QPM Levothyroxine Sodium (Levothyroxine Sodium) 100 Mcg Tab 100 MCG PO DAILY Lorazepam (Lorazepam) 0.5 Mg Tab 0.5 MG PO BID PRN for Anxiety Losartan Potassium (Cozaar) 50 Mg Tab 100 MG PO DAILY, TAB 2 tablet dose Discontinued Medications: Metronidazole (Flagyl) 500 Mg Tab 500 MG PO TID for 10 Days, #30 Vancomycin Hcl (Vancomycin) 250 Mg Cap 250 MG PO QID for 7 Days, #28 Admission Information HPI (per Admitting provider): This is a 71 year old female with a PMH of HTN, hypothyroidism, Suarez's esophagus, hx. of diverticulitis and C. Diff colitis presents to the ER due to worsening diarrhea; she had been having diarrhea and stool studies ordered as per PCP; found to have C. diff on January 31; and was prescribed PO vanco solution; states that it tasted terribly and could not tolerate it; she was then prescribed Flagyl, but this did not work and her diarrhea worsened; she then had vancomycin capsules prescribed, but she could not tolerate these due to her Suarez's esophagus; she was on vacation in [place] and was continuing to take Flagyl - but she had worsening diarrhea to about 15 times daily; abdominal cramping; no fevers/chills. Denies chest pain/shortness of breath. She had also been c/o dizziness and dark urine. Physical Exam (per Admitting): General Appearance: no apparent distress Head: normocephalic, atraumatic Eyes: normal inspection ENT: hearing grossly normal Respiratory/Chest: chest non-tender, lungs clear, normal breath sounds, no respiratory distress, no accessory muscle use Cardiovascular: regular rate, rhythm, no edema, no murmur Abdomen/GI: soft, + tenderness (diffusely tender to deep palpation), + abnormal bowel sounds (hyperactive) Extremities/Musculoskelatal: normal capillary refill, no pedal edema Neurologic/Psych: no motor/sensory deficits, alert, normal mood/affect Skin: normal color Lymphatic: no adenopathy Hospital Course This is a 71 year old female with a PMH of HTN, hypothyroidism, Suarez's esophagus, hx. of diverticulitis and C. Diff colitis presents with recurrent C. diff. She was admitted to the floor and placed on Vanc PO plus raspberry syrup and did well. Shortly after admission she was tolerating PO. She also had resolution of abdominal pain. She did report starting some home antifungals for thrush and finished the course in the hospital. She was mentating well, ambulatory and tolerating PO without difficulty on day of discharge. She was hemodynamically stable with complete resolution of symptoms. . Total time spent on discharge = 60 minutes This includes examination of the patient, discharge planning, medication reconciliation, and communication with other providers. Discharge Instructions Discharge Instructions Date of Service Feb 11, 2017. Admission Reason for Admission: C.difficile Colitis Discharge Discharge Diagnosis / Problem: c-diff colitis Discharge Goals Goal(s): Prevent Disease Progression Activity Recommendations Activity Limitations: per Instructions/Follow-up section . Instructions / Follow-Up Instructions / Follow-Up Please take all medications as instructed. Cont to observe good hand-washing practices using soap at home, especially around toileting and prior to any food preparation as discussed. I recommend OTC Mucinex and continuing Flonase daily for current nasal symptoms. I recommend obtaining a flavoring through your pharmacy of choice to allow the vancomycin suspension to be palatable. You were given raspberry flavoring in the hospital. You have been scheduled for a follow-up appointment with Dr. Sophie Mazariegos on 02/17 @ 1100 for follow-up of this hospitalization. Please bring all paperwork to this appointment with you. It was a pleasure taking care of you! Call if you have any questions or problems. You can reach a [facility] hospitalist on duty at [facility] 24 hours a day by calling [phone]. Take care of yourself. Hortencia Jasso DO [facility] Hospitalist Current Hospital Diet Patient's current hospital diet: AHA Diet (Heart Healthy) Discharge Diet Recommended Diet: AHA Diet (Heart Healthy) Procedures Procedures Performed: None. Pending Studies Studies pending at discharge: yes List of pending studies: final blood cultures haven't resulted; prelimiary are negative. Medical Emergencies . Who to Call and When: Medical Emergencies: If at any time you feel your situation is an emergency, please call 911 immediately. . Non-Emergent Contact Non-Emergency issues call your: Primary Care Provider . . "Provider Documentation" section prepared by Hortencia Jasso. . VTE Core Measure Inpt VTE Proph given/why not?: Enoxaparin (Lovenox)SQ Additional Copies To Sophie Mazariegos M.D.
[2017-04-14] MEDS ORDERED: CPR500 PO (13:41)
[2017-04-14] MEDS ORDERED: METR500T PO (13:41)
[2017-04-27] MEDS ORDERED: CIPR1SUS PO (14:06)
[2017-04-27] MEDS ORDERED: MTR500 PO (14:06)
[2017-06-06] MEDS ORDERED: NYSS5 PO (16:41)
[2017-06-06] MEDS ORDERED: CPRS5005 PO (16:41)
[2017-06-06] MEDS ORDERED: LCTX PO (16:41)
[2017-07-30] MEDS ORDERED: CHOL4POW5 PO (12:17)
== END 2017-02-11 13:50 | disposition home or self-care (01) | DRG 373 ==
LOC: C.EDB 21:20 → C.MS2W 02-10 02:56 → ENRESERV 02-10 03:02
PROVIDERS: ADMIT Family Medicine; ATTEND Hospitalist
DX: A04.7 Enterocolitis due to Clostridium difficile (principal); E86.0 Dehydration; I10 Essential (primary) hypertension; E03.9 Hypothyroidism, unspecified; K21.9 Gastro-esophageal reflux disease without esophagitis; K22.70 Barrett's esophagus without dysplasia; Z51.81 Encounter for therapeutic drug level monitoring; Z79.899 Other long term (current) drug therapy; Z86.19 Personal history of other infectious and parasitic diseases; Z87.440 Personal history of urinary (tract) infections; Z85.3 Personal history of malignant neoplasm of breast; Z87.891 Personal history of nicotine dependence

== ENCOUNTER 2017-02-23 14:36 | Emergency (ER) | payer BC, OTHER ==
[~2017-02-23] VITALS: Ht 154.9 cm; Wt 81.9 kg
[~2017-02-23 14:36] MED LIST changes: -AMLO10TA4 PO; +CHOL400C10 PO; -CHOLTAB3 PO; +DIPH1TAB87 PO; +FLUT0.15 NAE; -METR-162 PO; +NRV/5 PO; -VANC1CAP3 PO; +VNCSEMP PO
[2017-02-23 14:41] VITALS: TEMP 36.6; Ht 154.9 cm; Wt 81.9 kg
[2017-02-23] MEDS ORDERED: SODIUM CHLORIDE 0.9% 1000ML 1,000 ML IV STA (14:58)
[2017-02-23] MEDS ORDERED: HYDROmorphone INJ 1 MG/ML SYR IV STA (15:03)
[2017-02-23] MEDS ORDERED: ONDANSETRON INJ 2 MG/ML 2 ML VIAL IV STA ×2 (15:03→17:48)
[2017-02-23 15:12] VITALS: O2SAT 95
--- NOTE | 2017-02-23 15:14 | DIAGNOSTIC IMAGING REPORT ---
CHEST ONE VIEW PORTABLE CLINICAL HISTORY: RUQ abdominal pain, C Diff pain. Nausea. COMPARISON STUDY: 08/05/2016 FINDINGS: The bones soft tissues and hemidiaphragms are normal. The cardiomediastinal silhouette is normal. The lungs are clear. The pulmonary vasculature is normal. IMPRESSION: Negative chest. Electronically signed by: Tremayne Richmond M.D. 02/23/2017 3:13 PM Dictated Date/Time: 02/23/2017 3:12 PM
[2017-02-23 15:26] LABS: BASO % 0.5 %; BASO ABS # 0.03 K/uL (0-0.2); COMPLETE YES; EOS % 1.8 %; HEMATOCRIT 41.8 % (37-47); IG% 0.3 %; LYMPH % 35.5 %; LYMPH ABS # 2.15 K/uL (1.2-3.4); MEAN CELL VOLUME 82.6 fL (80-100); MEAN CORPUSCULAR HEMOGLOBIN 27.1 pg (25-34); MEAN CORPUSCULAR HGB CONC 32.8 g/dl (32-36); MEAN PLATELET VOLUME 10.1 fL (7.4-10.4); MONO % 6.9 %; PLATELET COUNT 267 K/uL (130-400); RED BLOOD COUNT 5.06 M/uL (4.2-5.4); WHITE BLOOD COUNT 6.06 K/uL (4.8-10.8)
[2017-02-23 15:37] LABS: INR 0.9 (0.9-1.1); PARTIAL THROMBOPLASTIN RATIO 1.1; PROTHROMBIN TIME (PATIENT) 10.1 SECONDS (9.0-12.0)
[2017-02-23 15:40] LABS: URINE APPEARANCE CLEAR (CLEAR); URINE BILIRUBIN NEG (NEG); URINE COLOR YELLOW; URINE EPITHELIAL CELL AUTO >30 /lpf (0-5); URINE NITRITE NEG (NEG); URINE SPECIFIC GRAVITY 1.012 (1.000-1.030); UROBILINOGEN NEG (NEG); ZZUR CULT IF INDIC CLEAN CATCH NO
[2017-02-23 15:42] LABS: MANUAL MICROSCOPIC REQUIRED? NO; REVIEW REQ? NO
[2017-02-23 15:43] LABS: BUN/CREATININE RATIO 14.4 (10-20); CALCIUM 9.2 mg/dl (8.5-10.1); CREATININE 0.9 mg/dl (0.60-1.20); POTASSIUM 3.8 mmol/L (3.5-5.1)
[2017-02-23 15:50] LABS: MAGNESIUM 2.4 mg/dl (1.8-2.4)
--- NOTE | 2017-02-23 15:58 | DIAGNOSTIC IMAGING REPORT ---
ABDOMEN AND PELVIS CT WITHOUT CONTRAST CT DOSE: 667.07 mGy.cm HISTORY: Pain RUQ abdominal pain, C diff, hx perforation TECHNIQUE: Multiaxial CT images of the abdomen and pelvis were performed without contrast. COMPARISON STUDY: 12/05/2016 FINDINGS: Lung bases are clear. Multiple hepatic cysts unchanged. Pancreas and kidneys are unremarkable. No evidence for hydronephrosis. Several calcified splenic granulomas. Bowel pattern within the abdomen and pelvis is nonobstructive. Patient is status post prior appendectomy and cholecystectomy. Findings of mild chronic sigmoid diverticulosis. There is no evidence for acute diverticulitis. IMPRESSION: No acute process. Stable hepatic cysts. Chronic sigmoid diverticulosis. Electronically signed by: Tremayne Richmond M.D. 02/23/2017 3:56 PM Dictated Date/Time: 02/23/2017 3:54 PM
--- NOTE | 2017-02-23 16:28 | EMERGENCY ROOM VISIT NOTE ---
History First contact with patient: 14:44 Chief Complaint: FLANK PAIN Stated Complaint: PAIN ON RT SIDE History of Present Illness The patient is a 71 year old female who presents to the Emergency Room via private vehicle accompanied by male with complaints of pain on right side". The patient points to her right upper abdominal quadrant as a location of pain that she rates as an 8/10. She states that she has been battling Clostridium difficile for the past 3 weeks, and has been taking oral vancomycin. She notes that her diarrhea has subsided to only 3 times a day, but now notes that when she woke up this morning she developed pain in the right upper quadrant. She did take 0.5 mg of lorazepam and Excedrin tablet without relief. She has never had this before, and the pain is worsening. She does have a history of bowel perforation, but notes this pain is different. There is associated nausea. She feels as though her temperature may be slightly raised, but notes this has been consistent throughout the infection of Clostridium difficile. She denies any chest pain, shortness of breath. She notes that she does have a contrast allergy dye, but could be premedicated with Benadryl. Review of Systems A complete 10-point Review of Systems was discussed with the patient, with pertinent positives and negatives listed in the History of Present Illness. All remaining Review of Systems questions can be considered negative unless otherwise specified. 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 (11) Urin Tract Infection Nos Surgical Problems: (1) H/O hernia repair (2) H/O knee surgery (3) History of appendectomy (4) Hx of tonsillectomy (5) S/P cholecystectomy Family History Cancer Social History Smoking Status: Never Smoker Alcohol Use: none Drug Use: none Marital Status: Housing Status: lives with family Occupation Status: retired Current/Historical Medications Scheduled Amlodipine Besylate (Amlodipine Besylate), 10 MG PO QPM Cholecalciferol (Vitamin D 400), 400 UNITS PO DAILY Fluticasone Propionate (Nasal) (Flonase Allergy Relief), 2 SPRY RUSH DAILY Lansoprazole (Prevacid Solutab), 30 MG PO QPM Levothyroxine Sodium (Levothyroxine Sodium), 100 MCG PO DAILY Losartan Potassium (Cozaar), 100 MG PO DAILY Vancomycin HCl (Vancomycin HCl), 125 MG PO QID Scheduled PRN Diphenhydramine Hcl (Benadryl Allergy), 25 MG PO DAILY PRN for allergies Lorazepam (Lorazepam), 0.5 MG PO BID PRN for Anxiety Allergies Coded Allergies: Iodinated Diagnostic Agents (Verified Allergy, Severe, sob, 02/23/17) Azithromycin (Verified Allergy, Intermediate, RASH, 02/23/17) Levalbuterol Hydrochloride (Verified Allergy, Intermediate, CHEST PAIN, ) Minocycline (Verified Allergy, Intermediate, RASH, 02/23/17) Iodine (Verified Allergy, Mild, IV CONTRAST, 02/23/17) Cefaclor (Verified Allergy, Unknown, HIVES, 02/23/17) Erythromycin (Verified Allergy, Unknown, HIVES, 02/23/17) Nitrofurantoin (Verified Allergy, Unknown, 02/23/17) Phenazopyridine (Verified Allergy, Unknown, sob, 02/23/17) Sulfa Antibiotics (Verified Allergy, Unknown, HIVES, 02/23/17) Levofloxacin (Verified Adverse Reaction, Intermediate, ABDOMINAL PAIN, ) Morphine (Verified Adverse Reaction, Intermediate, EXCESSIVE VOMITING, ) Pt. states excessive vomiting with this medication Physical Exam Vital Signs Date Time Temp Pulse Resp B/P (MAP) Pulse Ox O2 Delivery O2 Flow Rate FiO2 02/23/17 16:46 65 18 153/76 96 Room Air 02/23/17 16:26 65 02/23/17 16:19 65 17 143/69 96 02/23/17 15:12 95 Room Air 02/23/17 14:41 36.6 75 18 166/84 96 Room Air Physical Exam VITAL SIGNS - Vital signs and nursing notes were reviewed. Afebrile, hypertensive at 166/84, non-tachycardic and is saturating well on room air 96%. GENERAL -71-year-old female appearing her stated age who is in no acute distress. Communicates well with provider and answers questions appropriately. SKIN - Without rashes. The skin is unremarkable. HEAD - NC/AT. EYES - PERRL with EOMI bilaterally. Sclera anicteric. Palpebral conjunctiva pink and moist with no injection noted. EARS - No deformities of external structures noted on gross examination bilaterally. No pain elicited with palpation of the tragus bilaterally. External auditory canals without discharge or otorrhea. Tympanic membranes pearly holman without retraction or bulging. No fluid or purulent material visualized behind the TM. Handle of malleus, umbo, cone of light, pars tensa/ flaccid all easily visualized. NOSE - Midline and without cyanosis. No epistaxis or purulent drainage noted. Septum midline without deviation or septal hematoma noted. MOUTH/OROPHARYNX - Without perioral cyanosis. Buccal mucosa pink and moist and without leukoplakia. Tongue midline with equal elevation of palate bilaterally. No tonsillar hypertrophy, erythema, or exudates noted. Fair dentition noted. There is no mucosal sloughing, or abnormalities noted intraorally. NECK - Neck with FROM. Supple to palpation. No meningismus. LUNGS - Chest wall symmetric without accessory muscle use, intercostals retractions, or central cyanosis. Normal vesicular breath sounds CTA B/L. No wheezes, rales, or rhonchi appreciated. CARDIAC - RRR with S1/S2. No murmur, rubs, or gallops appreciated. ABDOMEN - Abdominal contour without pulsations or visible masses. BS normoactive all four quadrants. There is slight reproducible tenderness in the right upper quadrant. No palpable masses, hepatosplenomegaly, or ascites noted. EXTREMITIES - No clubbing or peripheral cyanosis. No pretibial edema present. + 5/5 strength noted in UE/LE bilaterally. NEUROLOGIC - Cranial nerves II through XII grossly intact. PSYCH - A&O. Pt is very pleasant and interacts well with examiner. Medical Decision & Procedures ER Provider Diagnostic Interpretation: ABDOMEN AND PELVIS CT WITHOUT CONTRAST CT DOSE: 667.07 mGy.cm HISTORY: Pain RUQ abdominal pain, C diff, hx perforation TECHNIQUE: Multiaxial CT images of the abdomen and pelvis were performed without contrast. COMPARISON STUDY: 12/05/2016 FINDINGS: Lung bases are clear. Multiple hepatic cysts unchanged. Pancreas and kidneys are unremarkable. No evidence for hydronephrosis. Several calcified splenic granulomas. Bowel pattern within the abdomen and pelvis is nonobstructive. Patient is status post prior appendectomy and cholecystectomy. Findings of mild chronic sigmoid diverticulosis. There is no evidence for acute diverticulitis. IMPRESSION: No acute process. Stable hepatic cysts. Chronic sigmoid diverticulosis. Electronically signed by: Tremayne Richmond M.D. 02/23/2017 3:56 PM Dictated Date/Time: 02/23/2017 3:54 PM CHEST ONE VIEW PORTABLE CLINICAL HISTORY: RUQ abdominal pain, C Diff pain. Nausea. COMPARISON STUDY: 08/05/2016 FINDINGS: The bones soft tissues and hemidiaphragms are normal. The cardiomediastinal silhouette is normal. The lungs are clear. The pulmonary vasculature is normal. IMPRESSION: Negative chest. Electronically signed by: Tremayne Richmond M.D. 02/23/2017 3:13 PM Dictated Date/Time: 02/23/2017 3:12 PM Laboratory Results 02/23/17 15:15 Red Blood Count 5.06, Mean Corpuscular Volume 82.6, Mean Corpuscular Hemoglobin 27.1, Mean Corpuscular Hemoglobin Concent 32.8, Mean Platelet Volume 10.1, Neutrophils (%) (Auto) 55.0, Lymphocytes (%) (Auto) 35.5, Monocytes (%) (Auto) 6.9, Eosinophils (%) (Auto) 1.8, Basophils (%) (Auto) 0.5, Neutrophils # (Auto) 3.33, Lymphocytes # (Auto) 2.15, Monocytes # (Auto) 0.42, Eosinophils # (Auto) 0.11, Basophils # (Auto) 0.03 02/23/17 15:15 Test 02/23/17 15:05 02/23/17 15:15 Urine Color YELLOW Urine Appearance CLEAR (CLEAR) Urine pH 6.0 (4.5-7.5) Urine Specific Pierz 1.012 (1.000-1.030) Urine Protein NEG (NEG) Urine Glucose (UA) NEG (NEG) Urine Ketones NEG (NEG) Urine Occult Blood NEG (NEG) Urine Nitrite NEG (NEG) Urine Bilirubin NEG (NEG) Urine Urobilinogen NEG (NEG) Urine Leukocyte Esterase SMALL (NEG) Urine WBC (Auto) 1-5 /hpf (0-5) Urine RBC (Auto) 0-4 /hpf (0-4) Urine Hyaline Casts (Auto) 1-5 /lpf (0-5) Urine Epithelial Cells (Auto) >30 /lpf (0-5) Urine Bacteria (Auto) NEG (NEG) White Blood Count 6.06 K/uL (4.8-10.8) Red Blood Count 5.06 M/uL (4.2-5.4) Hemoglobin 13.7 g/dL (12.0-16.0) Hematocrit 41.8 % (37-47) Mean Corpuscular Volume 82.6 fL (80-100) Mean Corpuscular Hemoglobin 27.1 pg (25-34) Mean Corpuscular Hemoglobin Concent 32.8 g/dl (32-36) Platelet Count 267 K/uL (130-400) Mean Platelet Volume 10.1 fL (7.4-10.4) Neutrophils (%) (Auto) 55.0 % Lymphocytes (%) (Auto) 35.5 % Monocytes (%) (Auto) 6.9 % Eosinophils (%) (Auto) 1.8 % Basophils (%) (Auto) 0.5 % Neutrophils # (Auto) 3.33 K/uL (1.4-6.5) Lymphocytes # (Auto) 2.15 K/uL (1.2-3.4) Monocytes # (Auto) 0.42 K/uL (0.11-0.59) Eosinophils # (Auto) 0.11 K/uL (0-0.5) Basophils # (Auto) 0.03 K/uL (0-0.2) RDW Standard Deviation 43.1 fL (36.4-46.3) RDW Coefficient of Variation 14.3 % (11.5-14.5) Immature Granulocyte % (Auto) 0.3 % Immature Granulocyte # (Auto) 0.02 K/uL (0.00-0.02) Prothrombin Time 10.1 SECONDS (9.0-12.0) Prothromb Time International Ratio 0.9 (0.9-1.1) Activated Partial Thromboplast Time 27.6 SECONDS (21.0-31.0) Partial Thromboplastin Ratio 1.1 Anion Gap 10.0 mmol/L (3-11) Est Creatinine Clear Calc Drug Dose 54.8 ml/min Estimated GFR () 74.0 Estimated GFR (Non- 63.9 BUN/Creatinine Ratio 14.4 (10-20) Calcium Level 9.2 mg/dl (8.5-10.1) Magnesium Level 2.4 mg/dl (1.8-2.4) Total Bilirubin 0.4 mg/dl (0.2-1) Aspartate Amino Transf (AST/SGOT) 11 U/L (15-37) Alanine Aminotransferase (ALT/SGPT) 16 U/L (12-78) Alkaline Phosphatase 90 U/L (45-117) Troponin I < 0.015 ng/ml (0-0.045) Total Protein 7.1 gm/dl (6.4-8.2) Albumin 3.6 gm/dl (3.4-5.0) Globulin 3.5 gm/dl (2.5-4.0) Albumin/Globulin Ratio 1.0 (0.9-2) Amylase Level 49 U/L (25-115) Lipase 155 U/L (73-393) Medications Administered Medications (Trade) Dose Ordered Sig/Barb Route Start Time Stop Time Status Last Admin Dose Admin Sodium Chloride 1,000 ml @ 999 mls/hr Q1H1M STAT IV 02/23/17 14:58 02/23/17 15:58 DC 02/23/17 15:22 999 MLS/HR Hydromorphone HCl (Dilaudid Inj) 1 mg NOW STAT IV 02/23/17 15:03 02/23/17 15:04 DC 02/23/17 15:23 1 MG Ondansetron HCl (Zofran Inj) 4 mg NOW STAT IV 02/23/17 15:03 02/23/17 15:04 DC 02/23/17 15:22 4 MG Medical Decision Patient was seen and evaluated as above. After obtaining a thorough history and physical examination IV access was initiated and the above workup was performed. Patient declined pain medication, but was hydrated with 1 L of normal saline. This appeared to run in at a very slow rate despite the line being wide open. I did elect to obtain a noncontrast CT scan the abdomen and pelvis, as I do not want to premedicate the patient with Benadryl potentially dehydrate him further. Results as above. No acute process. Stable change. She was informed follow-up with her family doctor regarding the calcified splenic granulomas. CBC reveals no leukocytosis or anemia. Coags unremarkable. CMP reveals creatinine of 0.9, no evidence of overt kidney failure. Liver function is appropriate. Troponin is negative. Amylase and lipase are unremarkable. Bedside EKG reveals normal sinus rhythm, and complete report a bridge block of which she is to follow-up with her family doctor for. This is similar to previous EKG. Her urine does reveal small amount of leukocyte esterase, and greater than 30 epithelial cells. I suspect the patient is experiencing some acid reflux at this time she notes she did have some eructation earlier today. There is no evidence of a heart attack at this time, bowel perforation or acute intra-abdominal process. Patient this time appears stable for discharge, was educated upon worrisome symptoms which to return, and was discharged home in good condition. Unfortunately the entire liter of normal saline was unable to be infused and the patient secondary to the slow infusion rate. I do believe that she is able to keep herself hydrated as she has not had any vomiting and can tolerate by mouth fluids. She was discharged home in good condition. Patient's blood pressure is high, I suspect this is secondary to her acute abdominal pain. Her medication list was extensively reviewed. In evaluation treatment this patient following differential diagnoses were entertained: Acute abdomen, bowel perforation, Clostridium difficile location, further infection, pancreatitis, [place], PE, among others. Impression Primary Impression: RUQ pain Additional Impression: C. difficile diarrhea Departure Information Dispostion Home / Self-Care Condition GOOD Referrals Sophie Mazariegos M.D. (PCP) Patient Instructions My [facility] Additional Instructions You have been treated in the Emergency Department your Abdominal Pain. Laboratory results and imaging studies have ruled out any emergent causes for your abdominal pain which would warrant admission or surgery. Please continue your prescribed medications. For pain control, you can use the following [id number] medicines (if >12 yo): - Regular strength (325mg/tab) Tylenol (acetaminophen) 2 tabs every 4-6 hours as needed. Do not exceed 12 tablets in a 24 hour period. Avoid taking more than 3 grams (3000 mg) of Tylenol per day. This includes any other sources of acetaminophen you may take on a regular basis. Drink plenty of water and stay well hydrated. As with any trip to the Emergency Department, you should follow-up with your Primary Care Provider from today's visit. Please call the first thing tomorrow morning. Return to the emergency department if your symptoms persist despite treatment plan outlined above or if the following symptoms occur: increased fevers, chills , worsening nausea/vomiting, blood in your stool or urine. Please return to the emergency department with any new/concerning symptoms. Problem Qualifiers
[2017-02-23 16:46] VITALS: BP 153/76; PULSE 65; O2SAT 96
[2017-02-23] MEDS ORDERED: MoRPHine SULFATE 4 MG/ML 1 ML CARP\\VIAL IV STA (17:48)
[2017-04-14] MEDS ORDERED: METR500T PO (13:41)
[2017-04-14] MEDS ORDERED: CPR500 PO (13:41)
[2017-04-15] MEDS ORDERED: CIPR1SUS PO (12:42)
[2017-04-15] MEDS ORDERED: MTR500 PO (12:42)
[2017-04-27] MEDS ORDERED: MTR500 PO (14:06)
[2017-04-27] MEDS ORDERED: CIPR1SUS PO (14:06)
[2017-06-06] MEDS ORDERED: CPRS5005 PO (16:41)
[2017-06-06] MEDS ORDERED: NYSS5 PO (16:41)
[2017-06-06] MEDS ORDERED: LCTX PO (16:41)
[2017-07-30] MEDS ORDERED: CHOL4POW5 PO (12:17)
== END 2017-02-23 17:00 | disposition home or self-care (01) ==
LOC: C.EDB 14:37 → C.EDC 17:00
DX: R10.11 Right upper quadrant pain (principal); A04.7 Enterocolitis due to Clostridium difficile; Z85.3 Personal history of malignant neoplasm of breast; I10 Essential (primary) hypertension; K21.9 Gastro-esophageal reflux disease without esophagitis; E03.9 Hypothyroidism, unspecified; K22.70 Barrett's esophagus without dysplasia; Z87.440 Personal history of urinary (tract) infections; Z90.49 Acquired absence of other specified parts of digestive tract; Z90.89 Acquired absence of other organs; Z98.890 Other specified postprocedural states; Z79.899 Other long term (current) drug therapy

== ENCOUNTER 2017-04-11 08:53 | Inpatient (IN) | payer BC, OTHER ==
[~2017-04-11] VITALS: Ht 154.9 cm; Wt 81.4 kg
[~2017-04-11 08:53] MED LIST changes: +DIPH1TAB PO; -DIPH1TAB87 PO
[2017-04-11] MEDS ORDERED: DIPH38TA PO (09:18)
[2017-04-11] MEDS ORDERED: DiphenhydrAMINE HCL 50 MG/ML VIAL IV STA (09:22)
[2017-04-11] MEDS ORDERED: HYDROCORTISONE SOD SUCCINATE 100 MG/2 ML VIAL IV STA (09:22)
[2017-04-11] MEDS ORDERED: ONDANSETRON INJ 2 MG/ML 2 ML VIAL IV PRN (09:30)
[2017-04-11] MEDS ORDERED: SODIUM CHLORIDE 0.9% 1000ML 1,000 ML IV ONE (09:30)
[2017-04-11 09:43] LABS: BASO % 0.2 %; BASO ABS # 0.01 K/uL (0-0.2); COMPLETE YES; EOS % 1.9 %; HEMATOCRIT 42.3 % (37-47); LYMPH % 18.6 %; LYMPH ABS # 1.07 K/uL (1.2-3.4); MEAN CELL VOLUME 82.6 fL (80-100); MEAN CORPUSCULAR HEMOGLOBIN 27.9 pg (25-34); MEAN CORPUSCULAR HGB CONC 33.8 g/dl (32-36); MEAN PLATELET VOLUME 10.4 fL (7.4-10.4); MONO % 4.9 %; NEUT % 74.4 %; PLATELET COUNT 277 K/uL (130-400); RED BLOOD COUNT 5.12 M/uL (4.2-5.4); WHITE BLOOD COUNT 5.75 K/uL (4.8-10.8)
[2017-04-11] MEDS ORDERED: OPTIRAY 320 IV PRN (09:45)
[2017-04-11 09:46] LABS: URINE APPEARANCE CLEAR (CLEAR); URINE BILIRUBIN NEG (NEG); URINE COLOR YELLOW; URINE EPITHELIAL CELL AUTO >30 /lpf (0-5); URINE NITRITE NEG (NEG); URINE SPECIFIC GRAVITY 1.016 (1.000-1.030); UROBILINOGEN NEG (NEG); ZZUR CULT IF INDIC CLEAN CATCH NO
[2017-04-11] MEDS: HYDROmorphone INJ 1 MG/ML SYR IV PRN ×2 (09:48→11:32)
[2017-04-11 09:51] LABS: MANUAL MICROSCOPIC REQUIRED? NO; REVIEW REQ? NO
[2017-04-11 09:59] LABS: BUN/CREATININE RATIO 17.3 (10-20); CALCIUM 9.3 mg/dl (8.5-10.1); CREATININE 0.79 mg/dl (0.60-1.20); POTASSIUM 3.7 mmol/L (3.5-5.1)
--- NOTE | 2017-04-11 11:05 | DIAGNOSTIC IMAGING REPORT ---
ABD/PELVIS IV CONTRAST ONLY CT DOSE: 643.03 mGy.cm HISTORY: Pain hx of diverticulitis and abscess TECHNIQUE: Multiaxial CT images of the abdomen and pelvis were performed following the use of intravenous contrast. A dose lowering technique was utilized adhering to the principles of ALARA. COMPARISON STUDY: 02/23/2017 FINDINGS: Lung bases are clear. Multiple hepatic cysts unchanged. Calcified granuloma medial spleen unchanged. Moderate for fatty replacement of the pancreas. Kidneys are negative for hydronephrosis. Bilateral renal sinus lipomatosis. Prior cholecystectomy. Prominence of the extrahepatic biliary ductal system on a postoperative basis. This is stable. Chronic sigmoid diverticulosis with moderate wall thickening. This is similar as compared to the prior study. Mild superimposed acute diverticulitis, with mild/moderate pericolonic infiltrative change of the mid to lower sigmoid. Several small air bubbles within the right central pelvis best seen transaxial images 281, 286 and 291. These potentially represent a small perforated diverticulum. There is again no evidence for abscess collection or obstruction. There is no evidence for hepatic or portal venous air. There is no evidence for pneumatosis.. No evidence for abscess collection or obstruction. IMPRESSION: 1. Chronic sigmoid diverticulosis with mild superimposed acute diverticulitis of the low sigmoid region. 2. Several small air bubbles within the right central pelvic fat region raising the possibility of a perforated diverticulum. 3. No evidence for abscess collection or obstruction. 4. Several stable hepatic cysts The above report was generated using voice recognition software. It may contain grammatical, syntax or spelling errors. Electronically signed by: Tremayne Richmond M.D. 04/11/2017 11:04 AM Dictated Date/Time: 04/11/2017 10:55 AM
[2017-04-11 12:30] VITALS: O2SAT 90; Ht 154.9 cm; Wt 81.4 kg
--- NOTE | 2017-04-11 12:41 | EMERGENCY ROOM VISIT NOTE ---
History Report prepared by Aracelis: Emiliano Edge Under the Supervision of: Dr. Wilmar Haile M.D. First contact with patient: 09:17 Chief Complaint: ABDOMINAL PAIN Stated Complaint: DIVERTICULITIS History of Present Illness The patient is a 71 year old female who presents to the Emergency Room with complaints of constant abdominal pain beginning two days ago. She has a history of diverticulitis occurring 1-2 years ago and states that her current pain feels very similar. She also complains of diarrhea and nausea. The patient states that her pain was intermittent prior to two days ago, but became more constant at that time. She denies any leg pain or vomiting. Her pain is not worsened with deep breathing. The patient has a history of breast cancer, but is currently cancer free. She states that she has had low-grade fever of 99-100 degrees, but states that she has had this temperature ever since her cancer treatments. She notes that she also has a history of C Diff. The patient also notes that she has lost nearly 20 pounds in the past 3-4 weeks, and she is unsure as to why this is happening. Source of History: patient Onset: Two days ago Position: abdomen Timing: intermittent Associated Symptoms: + fevers (chronic, low-grade), + nausea, + diarrhea, No vomiting Note: The patient denies any leg swelling. Review of Systems All systems have been listed, reviewed, and are negative other than those previously mentioned. Please see Additional Medical History Sheet. 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 (11) Urin Tract Infection Nos Surgical Problems: (1) H/O hernia repair (2) H/O knee surgery (3) History of appendectomy (4) Hx of tonsillectomy (5) S/P cholecystectomy Family History Cancer Social History Smoking Status: Former Smoker Alcohol Use: none Drug Use: none Marital Status: Housing Status: lives with family Occupation Status: retired Current/Historical Medications Scheduled Amlodipine Besylate (Amlodipine Besylate), 10 MG PO QPM Cholecalciferol (Vitamin D 400), 400 UNITS PO HS Diphenhydramine-Acetaminophen (Excedrin Pm), 0.5 TAB PO UD Lansoprazole (Prevacid Solutab), 30 MG PO QPM Levothyroxine Sodium (Levothyroxine Sodium), 100 MCG PO QAM Losartan Potassium (Cozaar), 100 MG PO QAM Scheduled PRN Diphenhydramine Hcl (Benadryl Allergy), 25 MG PO DAILY PRN for allergies Lorazepam (Lorazepam), 0.5 MG PO BID PRN for Anxiety Allergies Coded Allergies: Iodinated Diagnostic Agents (Verified Allergy, Severe, sob, 04/11/17) Azithromycin (Verified Allergy, Intermediate, RASH, 04/11/17) Levalbuterol Hydrochloride (Verified Allergy, Intermediate, CHEST PAIN, 07/18) Minocycline (Verified Allergy, Intermediate, RASH, 04/11/17) Iodine (Verified Allergy, Mild, IV CONTRAST, 04/11/17) Cefaclor (Verified Allergy, Unknown, HIVES, 04/11/17) Erythromycin (Verified Allergy, Unknown, HIVES, 04/11/17) Nitrofurantoin (Verified Allergy, Unknown, 04/11/17) Phenazopyridine (Verified Allergy, Unknown, sob, 04/11/17) Sulfa Antibiotics (Verified Allergy, Unknown, HIVES, 04/11/17) Levofloxacin (Verified Adverse Reaction, Intermediate, ABDOMINAL PAIN, 07/18) Morphine (Verified Adverse Reaction, Intermediate, EXCESSIVE VOMITING, 07/18) Pt. states excessive vomiting with this medication Physical Exam Vital Signs Date Time Temp Pulse Resp B/P (MAP) Pulse Ox O2 Delivery O2 Flow Rate FiO2 04/11/17 12:30 90 Room Air 04/11/17 11:53 65 18 125/56 90 Room Air 04/11/17 10:56 86 20 171/68 94 Room Air 04/11/17 09:56 83 04/11/17 09:53 99 Room Air 04/11/17 08:56 36.6 79 16 193/72 98 Room Air Physical Exam GENERAL: Patient awake, alert, oriented x 3. Patient follows commands. Patient does not appear toxic. Patient is adequately hydrated and well- nourished. SKIN: No erythema, pallor, cyanosis or rash HEENT: Normal head, pupils equal, reactive to light and accommodation. LUNGS: Clear to auscultation. No wheezes, no rales, no rhonchi. HEART: No murmurs. No gallops. No rubs ABDOMEN: Obese abdomen. Diffuse tenderness to palpation. No masses, no rebound, no hepatomegaly or splenomegaly. EXTREMITIES: No signs of trauma. No pedal or pretibial edema. No calf or thigh tenderness. NEUROLOGIC: Cranial nerves II-XII within normal limits. No gross motor sensory function deficits. Medical Decision & Procedures ER Provider Diagnostic Interpretation: CT results are interpretations by the radiologist and per my review. ABD/PELVIS IV CONTRAST ONLY FINDINGS: Lung bases are clear. Multiple hepatic cysts unchanged. Calcified granuloma medial spleen unchanged. Moderate for fatty replacement of the pancreas. Kidneys are negative for hydronephrosis. Bilateral renal sinus lipomatosis. Prior cholecystectomy. Prominence of the extrahepatic biliary ductal system on a postoperative basis. This is stable. Chronic sigmoid diverticulosis with moderate wall thickening. This is similar as compared to the prior study. Mild superimposed acute diverticulitis, with mild/moderate pericolonic infiltrative change of the mid to lower sigmoid. Several small air bubbles within the right central pelvis best seen transaxial images 281, 286 and 291. These potentially represent a small perforated diverticulum. There is again no evidence for abscess collection or obstruction. There is no evidence for hepatic or portal venous air. There is no evidence for pneumatosis.. No evidence for abscess collection or obstruction. IMPRESSION: 1. Chronic sigmoid diverticulosis with mild superimposed acute diverticulitis of the low sigmoid region. 2. Several small air bubbles within the right central pelvic fat region raising the possibility of a perforated diverticulum. 3. No evidence for abscess collection or obstruction. 4. Several stable hepatic cysts The above report was generated using voice recognition software. It may contain grammatical, syntax or spelling errors. Electronically signed by: Tremayne Richmond M.D. Laboratory Results 04/11/17 09:18 Red Blood Count 5.12, Mean Corpuscular Volume 82.6, Mean Corpuscular Hemoglobin 27.9, Mean Corpuscular Hemoglobin Concent 33.8, Mean Platelet Volume 10.4, Neutrophils (%) (Auto) 74.4, Lymphocytes (%) (Auto) 18.6, Monocytes (%) (Auto) 4.9, Eosinophils (%) (Auto) 1.9, Basophils (%) (Auto) 0.2, Neutrophils # (Auto) 4.28, Lymphocytes # (Auto) 1.07, Monocytes # (Auto) 0.28, Eosinophils # (Auto) 0.11, Basophils # (Auto) 0.01 04/11/17 09:18 Test 04/11/17 09:15 04/11/17 09:18 Urine Color YELLOW Urine Appearance CLEAR (CLEAR) Urine pH 6.0 (4.5-7.5) Urine Specific [place] 1.016 (1.000-1.030) Urine Protein NEG (NEG) Urine Glucose (UA) NEG (NEG) Urine Ketones NEG (NEG) Urine Occult Blood NEG (NEG) Urine Nitrite NEG (NEG) Urine Bilirubin NEG (NEG) Urine Urobilinogen NEG (NEG) Urine Leukocyte Esterase SMALL (NEG) Urine WBC (Auto) 5-10 /hpf (0-5) Urine RBC (Auto) 0-4 /hpf (0-4) Urine Hyaline Casts (Auto) 1-5 /lpf (0-5) Urine Epithelial Cells (Auto) >30 /lpf (0-5) Urine Bacteria (Auto) NEG (NEG) White Blood Count 5.75 K/uL (4.8-10.8) Red Blood Count 5.12 M/uL (4.2-5.4) Hemoglobin 14.3 g/dL (12.0-16.0) Hematocrit 42.3 % (37-47) Mean Corpuscular Volume 82.6 fL (80-100) Mean Corpuscular Hemoglobin 27.9 pg (25-34) Mean Corpuscular Hemoglobin Concent 33.8 g/dl (32-36) Platelet Count 277 K/uL (130-400) Mean Platelet Volume 10.4 fL (7.4-10.4) Neutrophils (%) (Auto) 74.4 % Lymphocytes (%) (Auto) 18.6 % Monocytes (%) (Auto) 4.9 % Eosinophils (%) (Auto) 1.9 % Basophils (%) (Auto) 0.2 % Neutrophils # (Auto) 4.28 K/uL (1.4-6.5) Lymphocytes # (Auto) 1.07 K/uL (1.2-3.4) Monocytes # (Auto) 0.28 K/uL (0.11-0.59) Eosinophils # (Auto) 0.11 K/uL (0-0.5) Basophils # (Auto) 0.01 K/uL (0-0.2) RDW Standard Deviation 43.4 fL (36.4-46.3) RDW Coefficient of Variation 14.3 % (11.5-14.5) Immature Granulocyte % (Auto) 0.0 % Immature Granulocyte # (Auto) 0.00 K/uL (0.00-0.02) Anion Gap 8.0 mmol/L (3-11) Est Creatinine Clear Calc Drug Dose 62.2 ml/min Estimated GFR () 86.7 Estimated GFR (Non- 74.8 BUN/Creatinine Ratio 17.3 (10-20) Calcium Level 9.3 mg/dl (8.5-10.1) Magnesium Level 2.1 mg/dl (1.8-2.4) Total Bilirubin 0.8 mg/dl (0.2-1) Aspartate Amino Transf (AST/SGOT) 14 U/L (15-37) Alanine Aminotransferase (ALT/SGPT) 19 U/L (12-78) Alkaline Phosphatase 107 U/L (45-117) Troponin I < 0.015 ng/ml (0-0.045) Total Protein 7.5 gm/dl (6.4-8.2) Albumin 3.7 gm/dl (3.4-5.0) Globulin 3.8 gm/dl (2.5-4.0) Albumin/Globulin Ratio 1.0 (0.9-2) Lipase 115 U/L (73-393) Hepatitis C Antibody Screen NEG (NEG) Laboratory results as stated above per my review. Medications Administered Medications (Trade) Dose Ordered Sig/Barb Route Start Time Stop Time Status Last Admin Dose Admin Sodium Chloride 1,000 ml @ 1,000 mls/hr Q1H ONCE IV 04/11/17 09:30 04/11/17 10:29 DC 04/11/17 09:47 1,000 MLS/HR Hydromorphone HCl (Dilaudid Inj) 1 mg Q1HWA PRN IV 04/11/17 09:30 04/11/17 14:34 DC 04/11/17 11:32 0.5 MG Ondansetron HCl (Zofran Inj) 4 mg Q1HWA PRN IV 04/11/17 09:30 04/11/17 14:33 DC 04/11/17 09:47 4 MG Diphenhydramine HCl (Benadryl Inj) 50 mg NOW STAT IV 04/11/17 09:22 04/11/17 09:29 DC 04/11/17 09:47 50 MG Hydrocortisone Sodium Succinate (Solu-Cortef IV) 50 mg NOW STAT IV 04/11/17 09:22 04/11/17 09:29 DC 04/11/17 09:48 50 MG ECG Indication: abdominal pain Rate (beats per minute): 67 Rhythm: sinus rhythm Findings: nonspecific-ST abn, other (Normal axis. ) ED Course 917: Past medical records reviewed. The patient was evaluated in room B11B. A complete history and physical examination was performed. 921: Ordered Solu-Cortef 50 mg IV, Benadryl Inj 50 mg IV. 929: Ordered Zofran Inj 4 mg IV, Dilaudid Inj 1 mg IV, Sodium Chloride 1000 ml @ 1000 mls/hr IV. 1124: I reassessed the patient. She is resting comfortably in bed. 1216: Upon reevaluation, the patient is resting. I discussed today's findings with her. She verbalized agreement of the treatment plan. I spoke with Maxine FAUST of the [facility] to evaluate the patient for further management. Medical Decision Nurses notes reviewed. Medical history sheet reviewed. Differential diagnosis includes but is not limited to: diverticulitis, peptic/gastric ulcer disease, ulcerative colitis, pancreatitis, and bowel obstruction. Multiple labs, urinalysis and CT were obtained. Please see above. The patient has a questionable allergy to IV contrast and therefore was premedicated with hydrocortisone and Benadryl. The patient was given IV fluids and pain medication. CT reveals diverticulitis. There is some questionable air bubbles raising the possibility of a perforated diverticulum. She does not appear to have an abscess as she has had in the past. I discussed care with the patient and with the hospitalist. Patient will require further evaluation in the hospital. Medication Reconcilliation Current Medication List: was personally reviewed by me Blood Pressure Screening Patient's blood pressure: Normal blood pressure Blood pressure disposition: Did not require urgent referral Consults Time Called: 1215 Consulting Physician: Maxine FAUST -[facility] Returned Call: [phone] Discussed the patient's case with Maxine FAUST. The patient will be evaluated for further management. Impression Primary Impression: Acute diverticulitis Scribe Attestation The scribe's documentation has been prepared under my direction and personally reviewed by me in its entirety. I confirm that the note above accurately reflects all work, treatment, procedures, and medical decision making performed by me. Departure Information Dispostion Being Evaluated By Hospitalist Referrals Sophie Mazariegos M.D. (PCP) Patient Instructions My [facility]
[2017-04-11] MEDS ORDERED: MoRPHine SULFATE 4 MG/ML 1 ML CARP\\VIAL IV PRN (13:15)
[2017-04-11] MEDS ORDERED: ACETAMINOPHEN 325 MG TAB PO PRN (13:15)
[2017-04-11 13:39] VITALS: O2SAT 92
[2017-04-11 14:10] VITALS: BP 151/83; PULSE 85; TEMP 36.7; O2SAT 93
[2017-04-11] MEDS: D5W AND NSS 1,000 ML IV SCH (14:39)
--- NOTE | 2017-04-11 15:05 | History and Physical ---
History & Physical Date & Time of Service: Apr 11, 2017 ~ 12:45 Chief Complaint: Abdominal Pain Primary Care Physician: Sophie Mazariegos M.D. History of Present Illness 71 year old female who presents to the ER with abdominal pain. Patient has history of multiple episodes of diverticulitis over the past 2 years. One time she did require abscess drainage. She follows with [facility]. She was recently admitted to [facility] 01/2017 for C. Diff colitis. She completed course of PO Vanco. She reports that over the past few days she has had worsening RLQ abdominal pain. This morning she reports her entire abdomen hurt. She reports she has had diarrhea over the past few days as well. She denies BRBPR or dark tarry stools. She has had nausea but denies vomiting. No fever or chills. She denies chest pain and shortness of breath. No lightheadedness, dizziness, diaphoresis, or syncopal events. She denies any urinary symptoms. In the ER, CT abd/pelvis is showing chronic sigmoid diverticulosis with mild superimposed acute diverticulitis of the low sigmoid region; Several small air bubbles within the right central pelvic fat region raising the possibility of a perforated diverticulum. Patient is afebrile without leukocytosis. BP is stable. She was given IVF, IV Zofran, IV Dilaudid, IVF, IV solu-cortef, and IV Benadryl. Past Medical/Surgical History Medical Problems: (1) Suarez esophagus Status: Chronic (2) Diarrhea Status: Resolved (3) Diverticulitis Permanent Comment: multiple episodes since 2014 one episode with abscess requiring drainage; no other surgeries follows with [facility] Status: Chronic (4) GERD (gastroesophageal reflux disease) Status: Chronic (5) HLD (hyperlipidemia) Status: Chronic (6) HTN (hypertension) Status: Chronic (7) Hypothyroidism Status: Chronic (8) Intra-abdominal abscess Status: Resolved (9) Intraductal carcinoma of left breast Permanent Comment: Abnormal left breast mammogram Status post stereotactic biopsy 11/14/2015 revealing DCIS grade 1 Estrogen receptor positive and progesterone receptor positive Status post needle localization lumpectomy 12/20/2015 Stage pTis pNX Status post completion of radiation therapy 03/01/2016 received 3850 cGy utilizing accelerated partial breast irradiation. Status: Chronic Surgical Problems: (1) H/O foot surgery Status: Chronic (2) H/O inguinal hernia repair Status: Chronic (3) History of appendectomy Status: Chronic (4) Hx of tonsillectomy Status: Chronic (5) S/P cholecystectomy Status: Chronic (6) S/P left knee arthroscopy Status: Chronic (7) S/P right knee arthroscopy Status: Chronic (8) S/P wrist surgery Permanent Comment: left Status: Chronic Family History FH: breast cancer MOTHER FH: lung cancer FATHER Social History Smoking Status: Former Smoker Alcohol Use: none Immunizations History of Influenza Vaccine: Yes Influenza Vaccine Date: Aug 07, 2016 Multi-Drug Resistant Organisms History of MDRO: No Allergies Coded Allergies: Iodinated Diagnostic Agents (Verified Allergy, Severe, sob, 04/11/17) Azithromycin (Verified Allergy, Intermediate, RASH, 04/11/17) Levalbuterol Hydrochloride (Verified Allergy, Intermediate, CHEST PAIN, 07/18) Minocycline (Verified Allergy, Intermediate, RASH, 04/11/17) Iodine (Verified Allergy, Mild, IV CONTRAST, 04/11/17) Cefaclor (Verified Allergy, Unknown, HIVES, 04/11/17) Erythromycin (Verified Allergy, Unknown, HIVES, 04/11/17) Nitrofurantoin (Verified Allergy, Unknown, 04/11/17) Phenazopyridine (Verified Allergy, Unknown, sob, 04/11/17) Sulfa Antibiotics (Verified Allergy, Unknown, HIVES, 04/11/17) Levofloxacin (Verified Adverse Reaction, Intermediate, ABDOMINAL PAIN, 07/18) Morphine (Verified Adverse Reaction, Intermediate, EXCESSIVE VOMITING, 07/18) Pt. states excessive vomiting with this medication Home Medications Scheduled Amlodipine Besylate (Amlodipine Besylate), 10 MG PO QPM Cholecalciferol (Vitamin D 400), 400 UNITS PO HS Diphenhydramine-Acetaminophen (Excedrin Pm), 0.5 TAB PO UD Lansoprazole (Prevacid Solutab), 30 MG PO QPM Levothyroxine Sodium (Levothyroxine Sodium), 100 MCG PO QAM Losartan Potassium (Cozaar), 100 MG PO QAM Scheduled PRN Diphenhydramine Hcl (Benadryl Allergy), 25 MG PO DAILY PRN for allergies Lorazepam (Lorazepam), 0.5 MG PO BID PRN for Anxiety Review of Systems ROS per HPI, all other systems reviewed and negative Physical Exam Vital Signs Date Time Temp Pulse Resp B/P (MAP) Pulse Ox O2 Delivery O2 Flow Rate FiO2 04/11/17 14:10 36.7 85 16 151/83 (105) 93 Room Air 04/11/17 13:39 73 18 135/55 92 Room Air 04/11/17 12:30 90 Room Air 04/11/17 11:53 65 18 125/56 90 Room Air 04/11/17 10:56 86 20 171/68 94 Room Air 04/11/17 09:56 83 04/11/17 09:53 99 Room Air 04/11/17 08:56 36.6 79 16 193/72 98 Room Air General Appearance: no apparent distress Head: normocephalic Eyes: normal inspection ENT: hearing grossly normal Neck: supple, no JVD Respiratory/Chest: lungs clear, normal breath sounds, no respiratory distress Cardiovascular: regular rate, rhythm, no edema, normal peripheral pulses Abdomen/GI: normal bowel sounds, soft, + tenderness (generalized, more in the RLQ ) Extremities/Musculoskelatal: normal inspection, no calf tenderness Neurologic/Psych: no motor/sensory deficits, alert, normal mood/affect, oriented x 3 Skin: normal color, warm/dry Diagnostics Laboratory Results Results Past 24 Hours Test 04/11/17 09:15 04/11/17 09:18 Range/Units Urine Color YELLOW Urine Appearance CLEAR CLEAR Urine pH 6.0 4.5-7.5 Urine Specific [place] 1.016 1.000-1.030 Urine Protein NEG NEG Urine Glucose (UA) NEG NEG Urine Ketones NEG NEG Urine Occult Blood NEG NEG Urine Nitrite NEG NEG Urine Bilirubin NEG NEG Urine Urobilinogen NEG NEG Urine Leukocyte Esterase SMALL NEG Urine WBC (Auto) 5-10 0-5 /hpf Urine RBC (Auto) 0-4 0-4 /hpf Urine Hyaline Casts (Auto) 1-5 0-5 /lpf Urine Epithelial Cells (Auto) >30 0-5 /lpf Urine Bacteria (Auto) NEG NEG White Blood Count 5.75 4.8-10.8 K/uL Red Blood Count 5.12 4.2-5.4 M/uL Hemoglobin 14.3 12.0-16.0 g/dL Hematocrit 42.3 37-47 % Mean Corpuscular Volume 82.6 80-100 fL Mean Corpuscular Hemoglobin 27.9 25-34 pg Mean Corpuscular Hemoglobin Concent 33.8 32-36 g/dl Platelet Count 277 130-400 K/uL Mean Platelet Volume 10.4 7.4-10.4 fL Neutrophils (%) (Auto) 74.4 % Lymphocytes (%) (Auto) 18.6 % Monocytes (%) (Auto) 4.9 % Eosinophils (%) (Auto) 1.9 % Basophils (%) (Auto) 0.2 % Neutrophils # (Auto) 4.28 1.4-6.5 K/uL Lymphocytes # (Auto) 1.07 1.2-3.4 K/uL Monocytes # (Auto) 0.28 0.11-0.59 K/uL Eosinophils # (Auto) 0.11 0-0.5 K/uL Basophils # (Auto) 0.01 0-0.2 K/uL RDW Standard Deviation 43.4 36.4-46.3 fL RDW Coefficient of Variation 14.3 11.5-14.5 % Immature Granulocyte % (Auto) 0.0 % Immature Granulocyte # (Auto) 0.00 0.00-0.02 K/uL Sodium Level 140 136-145 mmol/L Potassium Level 3.7 3.5-5.1 mmol/L Chloride Level 108 98-107 mmol/L Carbon Dioxide Level 24 21-32 mmol/L Anion Gap 8.0 3-11 mmol/L Blood Urea Nitrogen 14 7-18 mg/dl Creatinine 0.79 0.60-1.20 mg/dl Est Creatinine Clear Calc Drug Dose 62.2 ml/min Estimated GFR () 86.7 Estimated GFR (Non- 74.8 BUN/Creatinine Ratio 17.3 10-20 Random Glucose 112 70-99 mg/dl Calcium Level 9.3 8.5-10.1 mg/dl Magnesium Level 2.1 1.8-2.4 mg/dl Total Bilirubin 0.8 0.2-1 mg/dl Aspartate Amino Transf (AST/SGOT) 14 15-37 U/L Alanine Aminotransferase (ALT/SGPT) 19 12-78 U/L Alkaline Phosphatase 107 45-117 U/L Troponin I < 0.015 0-0.045 ng/ml Total Protein 7.5 6.4-8.2 gm/dl Albumin 3.7 3.4-5.0 gm/dl Globulin 3.8 2.5-4.0 gm/dl Albumin/Globulin Ratio 1.0 0.9-2 Lipase 115 73-393 U/L Hepatitis C Antibody Screen NEG NEG Microbiology Results 04/11/17 Blood Culture, Received Pending 04/11/17 Blood Culture, Received Pending Diagnostic Radiology CT ABD/PELVIS IMPRESSION: 1. Chronic sigmoid diverticulosis with mild superimposed acute diverticulitis of the low sigmoid region. 2. Several small air bubbles within the right central pelvic fat region raising the possibility of a perforated diverticulum. 3. No evidence for abscess collection or obstruction. 4. Several stable hepatic cysts Impression Assessment and Plan SIGMOID DIVERTICULITIS - admit to med/surg - patient presenting with increasing abdominal pain and diarrhea x 3 days; history of multiple episodes of diverticulitis over the past 2 years, once required abscess drainage; follows [facility] - CT in the ER showing chronic sigmoid diverticulosis with mild superimposed acute diverticulitis of the low sigmoid region. Several small air bubbles within the right central pelvic fat region raising the possibility of a perforated diverticulum. - vitals stable, no leukocytosis, afebrile - case discussed with Dr. Reynoso, will treat conservatively now with bowel rest, IV antibiotics - check stool studies; noted history of C. Diff - IV Cipro and Flagyl HTN - BP intermittently elevated, likely pain driven - continue losartan and amlodipine, make adjustments as needed HYPOTHYROIDISM - continue levothyroxine GERD - continue PPI DVT PROPHYLAXIS - SCDs; pharmacologic prophylaxis avoided in the event patient will need an invasive procedure DISPO - In my clinical judgment this beneficiary meets acute admission criteria, established by [facility], that includes being hospitalized through two midnights. ATTENDING ADDENDUM ; pt seen and examined , care co ordinated with Maxine FAUST 71 yo F with hx of diverticular disease , presented with abdominal pain / discomfort CT abdomen/pelvis shows acute sigmoid diverticulitis normal white count,no fever or chills P/E: gen : no sign of distress HEENT : sclera non icteric HT: regular S1/s2 lungs : CTA abdomens ; soft, left lower quadrant tenderness ext : no rash or deformity Neuro; no focal deficit A/P : Acute sigmoid diverticulitis : no evidence of sepsis admit to Medical /surgical floor bowel rest IV Abx with Cipro and Flagyl; surgery eval requested FULL CODE please refer to Maxine FAUST Documentation for further discussion of other issues Adriana Zeng MD Level of Care Med/Surg Advanced Directives Existing Living Will: Yes Existing Power of Sales Branch Manager: Yes Resuscitation Status FULL RESUSCITATION VTE Prophylaxis VTE Risk Assessment Done? Y/N: Yes Risk Level: Moderate Given or contraindicated: T.E.D. Stockings, SCD's
[2017-04-11 15:25] VITALS: BP 121/73; PULSE 61; TEMP 36.7; O2SAT 94
[2017-04-11] MEDS: METRONIDAZOLE / NSS 500 MG in PREMIXED NSS 100 ML IV SCH (16:00)
--- NOTE | 2017-04-11 16:10 | Pre-Operative Consultation ---
History General Date of Service: Apr 11, 2017. HPI HPI: The patient is a 71 year old female being seen for recurrent diverticulitis. She has history of multiple episodes of diverticulitis over the past 2 years. One time she did require abscess drainage in [place]. She was also recently admitted to with C. Diff colitis. She presents with worsening RLQ abdominal pain. No fever or chills. She denies any urinary symptoms. A CT abd/pelvis shows chronic sigmoid diverticulosis with mild superimposed acute diverticulitis ; there are several small air bubbles without free air. Patient is afebrile without leukocytosis. BP is stable. Historian: patient, family Risk Assessment Previous Exercise Tolerance: asymptomatic Self-care (1 MET) Daily beta kim use?: Yes Beta Kim Details Indication Beta Kim use: hypertension Problem List Medical Problems: (1) C. difficile colitis Status: Acute (2) C. difficile diarrhea Status: Acute (3) Costochondritis Status: Acute (4) Dehydration Status: Acute (5) Dysuria Status: Acute (6) Left shoulder pain Status: Acute (7) Right lower quadrant abdominal pain Status: Acute (8) RUQ pain Status: Acute (9) UTI (urinary tract infection) Status: Acute Medical & Surgical History Past Medical History: anxiety, GERD, hypertension Past Surgical History: appendectomy, cholecystectomy, hernia repair, orthopedic surgery, tonsillectomy Family History Family History: no pertinent family hx Social History Hx Tobacco Use In Past Year?: No Smoking Status: Former Smoker Alcohol: none Drug Use: none Immunizations Have You Had Influenza Vaccine: Yes Date Of Influenza Vaccine: Aug 07, 2016 Allergies Allergies: Coded Allergies: Iodinated Diagnostic Agents (Verified Allergy, Severe, sob, 04/11/17) Azithromycin (Verified Allergy, Intermediate, RASH, 04/11/17) Levalbuterol Hydrochloride (Verified Allergy, Intermediate, CHEST PAIN, 07/18) Minocycline (Verified Allergy, Intermediate, RASH, 04/11/17) Iodine (Verified Allergy, Mild, IV CONTRAST, 04/11/17) Cefaclor (Verified Allergy, Unknown, HIVES, 04/11/17) Erythromycin (Verified Allergy, Unknown, HIVES, 04/11/17) Nitrofurantoin (Verified Allergy, Unknown, 04/11/17) Phenazopyridine (Verified Allergy, Unknown, sob, 04/11/17) Sulfa Antibiotics (Verified Allergy, Unknown, HIVES, 04/11/17) Levofloxacin (Verified Adverse Reaction, Intermediate, ABDOMINAL PAIN, 07/18) Morphine (Verified Adverse Reaction, Intermediate, EXCESSIVE VOMITING, 07/18) Pt. states excessive vomiting with this medication Medications Current Inpatient Medications Current Inpatient Medications Medications (Trade) Dose Ordered Sig/Barb Route Start Time Stop Time Status Last Admin Dose Admin Ioversol (Optiray 320) 100 ml UD PRN IV 04/11/17 09:45 04/15/17 09:44 Acetaminophen (Tylenol Tab) 650 mg Q4H PRN PO 04/11/17 13:15 05/11/17 13:14 Ondansetron HCl (Zofran Inj) 4 mg Q6H PRN IV 04/11/17 13:15 05/11/17 13:14 Morphine Sulfate (MoRPHine SULFATE INJ) 4 mg Q4H PRN IV 04/11/17 13:15 04/25/17 13:14 Ciprofloxacin/ Dextrose 400 mg/ Prmx 200 ml @ 100 mls/hr Q12@0600,1800 IV 04/11/17 18:00 04/21/17 17:59 Metronidazole 500 mg/Prmx 100 ml @ 100 mls/hr Q8H IV 04/11/17 16:00 04/21/17 15:59 Dextrose/Sodium Chloride 1,000 ml @ 100 mls/hr Q10H IV 04/11/17 13:15 05/11/17 13:14 04/11/17 14:39 100 MLS/HR Amlodipine Besylate (Norvasc Tab) 10 mg QPM PO 04/11/17 21:00 05/11/17 20:59 Lansoprazole (Prevacid Solutab) 30 mg QPM PO 04/11/17 21:00 05/11/17 20:59 Levothyroxine Sodium (Synthroid Tab) 100 mcg DAILYBB PO 04/12/17 06:00 05/12/17 05:59 Losartan Potassium (coZAAR TAB) 100 mg QAM PO 04/12/17 09:00 05/12/17 08:59 Cholecalciferol (Vitamin D Tab) 400 inter.unit HS PO 04/11/17 21:00 05/11/17 20:59 Review of Systems Review of Systems Constitutional: denies chills, denies diaphoresis, denies fever Eyes: reports: no symptoms ENT: reports: no symptoms reported Cardiovascular: denies: chest pain, chest tightness, chest pressure, palpitations, syncope Respiratory: denies: cough, short of breath, stridor, wheezing Gastrointestinal: denies abdominal pain, denies constipation, denies diarrhea, nausea, denies vomiting Genitourinary - Female: reports: no symptoms Musculoskeletal: denies back pain, denies joint pain, denies joint swelling, denies muscle stiffness, denies neck pain Integumentary: denies change in hair/nails, denies dryness, denies lumps, denies rash Neurologic: denies: headache, numbness, seizure Psychiatric: reports: no symptoms Endocrine: no symptoms Hematologic / Lymphatic: no symptoms Allergic / Immunologic: no symptoms Physical Exam Physical Exam General Appearance: + WD/WN, No distress Ears, Nose, Throat: + normal ENT inspection Neck: No abnormal inspection, No tracheal deviation, No lymphadenophy, No stiffness, No tenderness Respiratory: No rales, No decreased breath sounds, No rhonchi, No stridor, No wheezing Cardiovascular: No tachycardia, No gallop/S3, No diastolic murmur, No gallop/S4 , No bradycardia, No systolic murmur Abdomen: + tenderness (LLQ), No abnormal bowel sounds, No distension, No hernia , No organomegaly, No guarding Extremities: No abnormal range of motion, No deformity, No swelling, No calf tenderness, No inflammation Neurologic/Psychiatric: No decreased LOC, No motor deficit/weakness, No sensory deficit Skin Characteristics: No abnormal color, No cyanosis, No diaphoresis, No pallor , No jaundice, No rash Lymphatic: No abnormal adenopathy Diagnostics Labs Labs Results Past 24 Hours Test 04/11/17 09:15 04/11/17 09:18 Range/Units Urine Color YELLOW Urine Appearance CLEAR CLEAR Urine pH 6.0 4.5-7.5 Urine Specific [place] 1.016 1.000-1.030 Urine Protein NEG NEG Urine Glucose (UA) NEG NEG Urine Ketones NEG NEG Urine Occult Blood NEG NEG Urine Nitrite NEG NEG Urine Bilirubin NEG NEG Urine Urobilinogen NEG NEG Urine Leukocyte Esterase SMALL NEG Urine WBC (Auto) 5-10 0-5 /hpf Urine RBC (Auto) 0-4 0-4 /hpf Urine Hyaline Casts (Auto) 1-5 0-5 /lpf Urine Epithelial Cells (Auto) >30 0-5 /lpf Urine Bacteria (Auto) NEG NEG White Blood Count 5.75 4.8-10.8 K/uL Red Blood Count 5.12 4.2-5.4 M/uL Hemoglobin 14.3 12.0-16.0 g/dL Hematocrit 42.3 37-47 % Mean Corpuscular Volume 82.6 80-100 fL Mean Corpuscular Hemoglobin 27.9 25-34 pg Mean Corpuscular Hemoglobin Concent 33.8 32-36 g/dl Platelet Count 277 130-400 K/uL Mean Platelet Volume 10.4 7.4-10.4 fL Neutrophils (%) (Auto) 74.4 % Lymphocytes (%) (Auto) 18.6 % Monocytes (%) (Auto) 4.9 % Eosinophils (%) (Auto) 1.9 % Basophils (%) (Auto) 0.2 % Neutrophils # (Auto) 4.28 1.4-6.5 K/uL Lymphocytes # (Auto) 1.07 1.2-3.4 K/uL Monocytes # (Auto) 0.28 0.11-0.59 K/uL Eosinophils # (Auto) 0.11 0-0.5 K/uL Basophils # (Auto) 0.01 0-0.2 K/uL RDW Standard Deviation 43.4 36.4-46.3 fL RDW Coefficient of Variation 14.3 11.5-14.5 % Immature Granulocyte % (Auto) 0.0 % Immature Granulocyte # (Auto) 0.00 0.00-0.02 K/uL Sodium Level 140 136-145 mmol/L Potassium Level 3.7 3.5-5.1 mmol/L Chloride Level 108 98-107 mmol/L Carbon Dioxide Level 24 21-32 mmol/L Anion Gap 8.0 3-11 mmol/L Blood Urea Nitrogen 14 7-18 mg/dl Creatinine 0.79 0.60-1.20 mg/dl Est Creatinine Clear Calc Drug Dose 62.2 ml/min Estimated GFR () 86.7 Estimated GFR (Non- 74.8 BUN/Creatinine Ratio 17.3 10-20 Random Glucose 112 70-99 mg/dl Calcium Level 9.3 8.5-10.1 mg/dl Magnesium Level 2.1 1.8-2.4 mg/dl Total Bilirubin 0.8 0.2-1 mg/dl Aspartate Amino Transf (AST/SGOT) 14 15-37 U/L Alanine Aminotransferase (ALT/SGPT) 19 12-78 U/L Alkaline Phosphatase 107 45-117 U/L Troponin I < 0.015 0-0.045 ng/ml Total Protein 7.5 6.4-8.2 gm/dl Albumin 3.7 3.4-5.0 gm/dl Globulin 3.8 2.5-4.0 gm/dl Albumin/Globulin Ratio 1.0 0.9-2 Lipase 115 73-393 U/L Hepatitis C Antibody Screen NEG NEG Microbiology Results 04/11/17 Blood Culture, Received Pending 04/11/17 Blood Culture, Received Pending Diagnostic Radiology Diagnostic Radiology ABD/PELVIS IV CONTRAST ONLY CT DOSE: 643.03 mGy.cm HISTORY: Pain hx of diverticulitis and abscess TECHNIQUE: Multiaxial CT images of the abdomen and pelvis were performed following the use of intravenous contrast. A dose lowering technique was utilized adhering to the principles of ALARA. COMPARISON STUDY: 02/23/2017 FINDINGS: Lung bases are clear. Multiple hepatic cysts unchanged. Calcified granuloma medial spleen unchanged. Moderate for fatty replacement of the pancreas. Kidneys are negative for hydronephrosis. Bilateral renal sinus lipomatosis. Prior cholecystectomy. Prominence of the extrahepatic biliary ductal system on a postoperative basis. This is stable. Chronic sigmoid diverticulosis with moderate wall thickening. This is similar as compared to the prior study. Mild superimposed acute diverticulitis, with mild/moderate pericolonic infiltrative change of the mid to lower sigmoid. Several small air bubbles within the right central pelvis best seen transaxial images 281, 286 and 291. These potentially represent a small perforated diverticulum. There is again no evidence for abscess collection or obstruction. There is no evidence for hepatic or portal venous air. There is no evidence for pneumatosis.. No evidence for abscess collection or obstruction. IMPRESSION: 1. Chronic sigmoid diverticulosis with mild superimposed acute diverticulitis of the low sigmoid region. 2. Several small air bubbles within the right central pelvic fat region raising the possibility of a perforated diverticulum. 3. No evidence for abscess collection or obstruction. 4. Several stable hepatic cysts The above report was generated using voice recognition software. It may contain grammatical, syntax or spelling errors. Impression Assessment and Plan Assessment and Plan Acute divericulitis -multiple episodes -agree IV abx -IVF -will need outpatient follow-up for possible elective sigmoid resection
[2017-04-11] MEDS ORDERED: HYDROCODONE/ACETAMOPHEN 5/325MG TAB PO PRN (16:15)
[2017-04-11] MEDS: CIPROFLOXACIN / D5W 400 MG in PREMIXED IN D5W 200 ML IV SCH (18:03)
[2017-04-11] MEDS: HYDROmorphone INJ 0.5 MG/0.5 ML SYR IV PRN (18:04)
[2017-04-11] MEDS: LANSOPRAZOLE SOLUTAB 30 MG PO SCH (21:01)
[2017-04-11] MEDS: CHOLECALCIFEROL 400 INTER.UNIT TAB PO SCH (21:01)
[2017-04-11 21:02] VITALS: BP 158/82; PULSE 74
[2017-04-11] MEDS: AMLODIPINE BESYLATE 5 MG TAB PO SCH (21:03)
[2017-04-11 23:15] VITALS: BP 119/60; PULSE 62; TEMP 37.4; O2SAT 93
[2017-04-12] MEDS: D5W AND NSS 1,000 ML IV SCH ×3 (00:14→19:27)
[2017-04-12] MEDS: METRONIDAZOLE / NSS 500 MG in PREMIXED NSS 100 ML IV SCH ×4 (00:14→23:40)
[2017-04-12] MEDS: HYDROmorphone INJ 0.5 MG/0.5 ML SYR IV PRN ×3 (00:26→19:26)
[2017-04-12] MEDS: CIPROFLOXACIN / D5W 400 MG in PREMIXED IN D5W 200 ML IV SCH ×2 (05:59→17:39)
[2017-04-12] MEDS: LEVOTHYROXINE 100 MCG TAB PO SCH (05:59)
[2017-04-12 06:36] LABS: HEMATOCRIT 35.7 % (37-47); MEAN CELL VOLUME 83.8 fL (80-100); MEAN CORPUSCULAR HGB CONC 32.2 g/dl (32-36); MEAN PLATELET VOLUME 10.1 fL (7.4-10.4); PLATELET COUNT 203 K/uL (130-400); RED BLOOD COUNT 4.26 M/uL (4.2-5.4)
[2017-04-12 06:52] VITALS: BP 123/71; PULSE 67; TEMP 37; O2SAT 93
[2017-04-12 07:09] LABS: BUN/CREATININE RATIO 20.2 (10-20); CALCIUM 8.1 mg/dl (8.5-10.1); CREATININE 0.59 mg/dl (0.60-1.20); POTASSIUM 3.4 mmol/L (3.5-5.1)
[2017-04-12] MEDS: LOSARTAN POTASSIUM 50 MG TAB PO SCH (08:38)
--- NOTE | 2017-04-12 10:03 | Surgery Progress Note ---
Surgery Progress Note Date of Service Apr 12, 2017. Subjective Post OP Day: HD2 + feeling well, + complaints (pain better), + flatus, + diet (sips), No nausea, No vomiting Objective Vital Signs: Date Time Temp Pulse Resp B/P (MAP) Pulse Ox O2 Delivery O2 Flow Rate FiO2 04/12/17 06:52 37.0 67 18 123/71 (88) 93 Room Air 04/12/17 00:00 Room Air 04/11/17 23:15 37.4 62 16 119/60 (79) 93 Room Air 04/11/17 21:02 74 158/82 (107) 04/11/17 15:45 Room Air 04/11/17 15:25 36.7 61 18 121/73 (89) 94 Room Air 04/11/17 14:10 36.7 85 16 151/83 (105) 93 Room Air 04/11/17 13:39 73 18 135/55 92 Room Air 04/11/17 12:30 90 Room Air 04/11/17 11:53 65 18 125/56 90 Room Air 04/11/17 10:56 86 20 171/68 94 Room Air General Appearance: WD/WN, no apparent distress Head: normocephalic, atraumatic Neck: supple, trachea midline Respiratory/Chest: chest non-tender, lungs clear Cardiovascular: regular rate, rhythm, no gallop, no murmur Abdomen: normal bowel sounds, non distended, soft, + tenderness (mild LLQ) Extremities: non-tender, no pedal edema Laboratory Results: Results Past 24 Hours Test 04/12/17 06:16 Range/Units White Blood Count 7.00 4.8-10.8 K/uL Red Blood Count 4.26 4.2-5.4 M/uL Hemoglobin 11.5 12.0-16.0 g/dL Hematocrit 35.7 37-47 % Mean Corpuscular Volume 83.8 80-100 fL Mean Corpuscular Hemoglobin 27.0 25-34 pg Mean Corpuscular Hemoglobin Concent 32.2 32-36 g/dl RDW Standard Deviation 44.0 36.4-46.3 fL RDW Coefficient of Variation 14.4 11.5-14.5 % Platelet Count 203 130-400 K/uL Mean Platelet Volume 10.1 7.4-10.4 fL Sodium Level 142 136-145 mmol/L Potassium Level 3.4 3.5-5.1 mmol/L Chloride Level 111 98-107 mmol/L Carbon Dioxide Level 24 21-32 mmol/L Anion Gap 7.0 3-11 mmol/L Blood Urea Nitrogen 12 7-18 mg/dl Creatinine 0.59 0.60-1.20 mg/dl Est Creatinine Clear Calc Drug Dose 83.3 ml/min Estimated GFR () 106.1 Estimated GFR (Non- 91.6 BUN/Creatinine Ratio 20.2 10-20 Random Glucose 114 70-99 mg/dl Calcium Level 8.1 8.5-10.1 mg/dl Microbiology Results 04/11/17 Blood Culture, Received Pending 04/12/17 Shiga Toxin Test, [place] Batch Pending 04/12/17 Stool Culture, [place] Batch Pending 04/12/17 C.difficile Toxin B Gene (PCR), Received Pending 04/12/17 Shiga Toxin Test, Received Pending 04/12/17 Stool Culture, Received Pending 04/12/17 C.difficile Toxin B Gene (PCR), Received Pending 04/11/17 Urine Culture, Received Pending Assessment & Plan Acute diverticulitis -cipro, flagyl -begin diet -clinically improving
[2017-04-12 15:07] VITALS: BP 114/72; PULSE 64; TEMP 36.5; O2SAT 96
--- NOTE | 2017-04-12 19:02 | Progress Note ---
Internal Med Progress Note Date of Service: Apr 12, 2017. Provider Documentation: SUBJECTIVE: abdominal pain remains unchanged started on clears , had few bowel movement , stool is loose no blood noted no fever or chills OBJECTIVE: Vital Signs-as noted below Exam: General-no sign of distress Eyes-sclera non icteric ENT-NAD Neck-no JVD Lungs-CTA Heart-regular s1.s2 Abdomen-soft, tenderness across lower abdomen , no rebound Extremities-no rash or deformity Neuro-AAo x3, no focal deficit Lab data as noted below. ASSESSMENT & PLAN: SIGMOID DIVERTICULITIS - - patient presented with increasing abdominal pain and diarrhea x 3 days; history of multiple episodes of diverticulitis over the past 2 years, once required abscess drainage; follows with [facility] Rectal surgery - CT abdomen /pelvis chronic sigmoid diverticulosis with mild superimposed acute diverticulitis of the low sigmoid region. Several small air bubbles within the right central pelvic fat region raising the possibility of a perforated diverticulum. -pt started on empiric Abx with IV Cipro and Flagyl - appreciate Surgery Dr. Reynoso input slow advancement of diet to clears pt will need out pt follow up with colo rectal surgery at [facility] and colonoscopic eval after acute diverticular episode resolved HTN - - continue losartan and amlodipine, HYPOTHYROIDISM - continue levothyroxine GERD - continue PPI DVT PROPHYLAXIS - SCDs; DISPOSITION Discharge home when medically stable Vital Signs: Date Time Temp Pulse Resp B/P (MAP) Pulse Ox O2 Delivery O2 Flow Rate FiO2 04/13/17 07:14 37.0 64 17 136/66 (89) 95 Room Air 04/12/17 23:45 36.8 59 18 107/63 (78) 94 Room Air 04/12/17 23:30 Room Air 04/12/17 16:00 Room Air 04/12/17 15:07 36.5 64 16 114/72 (86) 96 Room Air 04/12/17 07:45 Room Air Lab Results: Microbiology Results 04/12/17 C.difficile Toxin B Gene (PCR) - Final, Complete No C. difficile toxin B gene detected 04/12/17 Shiga Toxin Test, Received Pending 04/12/17 Stool Culture, Received Pending
[2017-04-12] MEDS: ONDANSETRON INJ 2 MG/ML 2 ML VIAL IV PRN (19:26)
[2017-04-12] MEDS: LANSOPRAZOLE SOLUTAB 30 MG PO SCH (21:19)
[2017-04-12] MEDS: CHOLECALCIFEROL 400 INTER.UNIT TAB PO SCH (21:19)
[2017-04-12] MEDS: AMLODIPINE BESYLATE 5 MG TAB PO SCH (21:19)
[2017-04-12 23:45] VITALS: BP 107/63; PULSE 59; TEMP 36.8; O2SAT 94
[2017-04-13] MEDS: LEVOTHYROXINE 100 MCG TAB PO SCH (05:24)
[2017-04-13] MEDS: CIPROFLOXACIN / D5W 400 MG in PREMIXED IN D5W 200 ML IV SCH ×2 (05:24→17:41)
[2017-04-13] MEDS: D5W AND NSS 1,000 ML IV SCH (05:24)
[2017-04-13 07:14] VITALS: BP 136/66; PULSE 64; TEMP 37; O2SAT 95
--- NOTE | 2017-04-13 07:39 | Surgery Progress Note ---
Surgery Progress Note Date of Service Apr 13, 2017. Subjective Post OP Day: HD 3 + feeling well, + complaints (pain resolving), + flatus, + diet (clears), No nausea, No vomiting Objective Vital Signs: Date Time Temp Pulse Resp B/P (MAP) Pulse Ox O2 Delivery O2 Flow Rate FiO2 04/13/17 07:14 37.0 64 17 136/66 (89) 95 Room Air 04/12/17 23:45 36.8 59 18 107/63 (78) 94 Room Air 04/12/17 23:30 Room Air 04/12/17 16:00 Room Air 04/12/17 15:07 36.5 64 16 114/72 (86) 96 Room Air 04/12/17 07:45 Room Air General Appearance: WD/WN, no apparent distress Head: normocephalic, atraumatic Neck: supple, trachea midline Respiratory/Chest: lungs clear Cardiovascular: regular rate, rhythm Abdomen: normal bowel sounds, non distended, soft, + tenderness (mild) Extremities: non-tender, no pedal edema Laboratory Results: Microbiology Results 04/12/17 C.difficile Toxin B Gene (PCR) - Final, Complete No C. difficile toxin B gene detected 04/12/17 Shiga Toxin Test, Received Pending 04/12/17 Stool Culture, Received Pending Assessment & Plan Acute diverticulitis -cipro, flagyl continue IV -begin fulls -clinically improving
[2017-04-13] MEDS: ONDANSETRON INJ 2 MG/ML 2 ML VIAL IV PRN ×2 (08:02→20:03)
[2017-04-13] MEDS: HYDROmorphone INJ 0.5 MG/0.5 ML SYR IV PRN (08:02)
[2017-04-13] MEDS: METRONIDAZOLE / NSS 500 MG in PREMIXED NSS 100 ML IV SCH ×3 (08:02→23:43)
[2017-04-13] MEDS: LOSARTAN POTASSIUM 50 MG TAB PO SCH (09:13)
[2017-04-13] MEDS ORDERED: POTASSIUM CHLORIDE 10 MEQ TABCR PO STA (09:47)
[2017-04-13] MEDS ORDERED: OXYCODONE HCL IR 5 MG TAB (IMMEDIATE RELEASE) PO PRN (10:00)
[2017-04-13] MEDS: NSS + 20MEQ KCL 1000ML 1,000 ML IV SCH ×2 (10:27→23:43)
[2017-04-13 15:07] VITALS: BP 132/76; PULSE 60; TEMP 37; O2SAT 95
--- NOTE | 2017-04-13 17:03 | Progress Note ---
Internal Med Progress Note Date of Service: Apr 13, 2017. Provider Documentation: SUBJECTIVE: mild improvement of abdominal pain no bowel movement today abdomen feels bloated no nausea OBJECTIVE: Vital Signs-as noted below Exam: General-no sign of distress Eyes-sclera non icteric ENT-NAD Neck-no JVD Lungs-CTA Heart-regular s1.s2 Abdomen-soft, tenderness across lower abdomen , no rebound Extremities-no rash or deformity Neuro-AAo x3, no focal deficit Lab data as noted below. ASSESSMENT & PLAN: SIGMOID DIVERTICULITIS - - patient presented with increasing abdominal pain and diarrhea x 3 days; history of multiple episodes of diverticulitis over the past 2 years, once required abscess drainage; follows with [facility] - CT abdomen /pelvis chronic sigmoid diverticulosis with mild superimposed acute diverticulitis of the low sigmoid region. Several small air bubbles within the right central pelvic fat region raising the possibility of a perforated diverticulum. -pt started on empiric Abx with IV Cipro and Flagyl - appreciate Surgery Dr. Reynoso input clinically improving , diet advanced pt will need out pt follow up with surgery -wants to follow up with Dr Moses at [facility] HTN - - continue losartan and amlodipine, HYPOTHYROIDISM - continue levothyroxine GERD - continue PPI DVT PROPHYLAXIS - SCDs; DISPOSITION Discharge home when medically stable Vital Signs: Date Time Temp Pulse Resp B/P (MAP) Pulse Ox O2 Delivery O2 Flow Rate FiO2 04/13/17 15:07 37.0 60 16 132/76 (94) 95 Room Air 04/13/17 08:08 Room Air 04/13/17 07:14 37.0 64 17 136/66 (89) 95 Room Air 04/12/17 23:45 36.8 59 18 107/63 (78) 94 Room Air 04/12/17 23:30 Room Air
[2017-04-13] MEDS: AMLODIPINE BESYLATE 5 MG TAB PO SCH (20:46)
[2017-04-13] MEDS: LANSOPRAZOLE SOLUTAB 30 MG PO SCH (20:46)
[2017-04-13] MEDS: CHOLECALCIFEROL 400 INTER.UNIT TAB PO SCH (20:46)
[2017-04-13 23:05] VITALS: BP 124/77; PULSE 67; TEMP 36.6; O2SAT 94
[2017-04-14] MEDS ORDERED: NURSING VERBAL MED ORDER ONE (00:30)
[2017-04-14] MEDS ORDERED: PROMETHAZINE HCL INJ 12.5 MG in SODIUM CHLORIDE 0.9% 50ML 50 ML IV PRN (00:30)
--- NOTE | 2017-04-14 05:29 | Surgery Progress Note ---
Surgery Progress Note Date of Service Apr 14, 2017. Subjective Post OP Day: HD 4 + feeling well, + complaints (some nausea), + flatus, + pain controlled, + nausea, + diet (clears), No vomiting Objective Vital Signs: Date Time Temp Pulse Resp B/P (MAP) Pulse Ox O2 Delivery O2 Flow Rate FiO2 04/13/17 23:45 Room Air 04/13/17 23:05 36.6 67 16 124/77 (93) 94 Room Air 04/13/17 16:12 Room Air 04/13/17 15:07 37.0 60 16 132/76 (94) 95 Room Air 04/13/17 08:08 Room Air 04/13/17 07:14 37.0 64 17 136/66 (89) 95 Room Air General Appearance: WD/WN, no apparent distress Head: normocephalic, atraumatic Neck: supple, trachea midline Respiratory/Chest: lungs clear Cardiovascular: regular rate, rhythm Abdomen: normal bowel sounds, non distended, soft, + tenderness (minimal) Extremities: non-tender, normal inspection, no pedal edema Laboratory Results: Results Past 24 Hours Test 04/14/17 04:44 Range/Units Assessment & Plan Acute diverticulitis -cipro, flagyl continue IV -advance diet -clinically improving
[2017-04-14] MEDS: LEVOTHYROXINE 100 MCG TAB PO SCH (06:00)
[2017-04-14] MEDS: CIPROFLOXACIN / D5W 400 MG in PREMIXED IN D5W 200 ML IV SCH ×2 (06:09→18:04)
[2017-04-14] MEDS: ONDANSETRON INJ 2 MG/ML 2 ML VIAL IV PRN (06:09)
[2017-04-14 07:11] VITALS: BP 131/80; PULSE 66; TEMP 36.7; O2SAT 94
[2017-04-14 07:40] LABS: BUN/CREATININE RATIO 9.2 (10-20); CALCIUM 8.2 mg/dl (8.5-10.1); CREATININE 0.52 mg/dl (0.60-1.20); POTASSIUM 3.5 mmol/L (3.5-5.1)
[2017-04-14] MEDS: LOSARTAN POTASSIUM 50 MG TAB PO SCH (08:14)
[2017-04-14] MEDS: METRONIDAZOLE / NSS 500 MG in PREMIXED NSS 100 ML IV SCH ×3 (08:14→23:38)
--- NOTE | 2017-04-14 13:38 | Discharge Instructions ---
Discharge Instructions Date of Service Apr 14, 2017. Admission Reason for Admission: Diverticulitis Discharge Discharge Diagnosis / Problem: ACUTE SIGMOID DIVERTICULITIS Discharge Goals Goal(s): Decrease discomfort, Diagnostic testing, Therapeutic intervention Activity Recommendations Activity Limitations: resume your previous activity Shower/Bathe: no limitations . Instructions / Follow-Up Instructions / Follow-Up HOSPITAL FOLLOW UP ; 04/18/2017 1:00 PM Sophie Mazariegos MD Family [facility] FOLLOW UP WITH SURGERY DR KWAKU REYNOLDS IN 4-6 WEEKS TO DISCUSS REGARDING SURGICAL PROCEDURE FOR RECURRENT DIVERTICULITIS PLEASE CALL OFFICE FOR APPOINTMENT Current Hospital Diet Patient's current hospital diet: Regular Diet Discharge Diet Recommended Diet: Low Fiber Diet Pending Studies Studies pending at discharge: no Medical Emergencies . Who to Call and When: Medical Emergencies: If at any time you feel your situation is an emergency, please call 911 immediately. . Non-Emergent Contact Non-Emergency issues call your: Primary Care Provider . . "Provider Documentation" section prepared by Adriana Zeng. . VTE Core Measure Inpt VTE Proph given/why not?: Doris Nolan, SCD's
[2017-04-14] MEDS ORDERED: METR500T PO (13:41)
[2017-04-14] MEDS ORDERED: CPR500 PO (13:41)
[2017-04-14] MEDS: NSS + 20MEQ KCL 1000ML 1,000 ML IV SCH (15:06)
[2017-04-14 15:50] VITALS: BP 132/79; PULSE 53; TEMP 36.6; O2SAT 96
--- NOTE | 2017-04-14 20:03 | Progress Note ---
Internal Med Progress Note Date of Service: Apr 14, 2017. Provider Documentation: SUBJECTIVE: abdominal pain much improved diet advanced to solid tolerating well had normal bowel movement today OBJECTIVE: Vital Signs-as noted below Exam: General-no sign of distress Eyes-sclera non icteric ENT-NAD Neck-no JVD Lungs-CTA Heart-regular s1.s2 Abdomen-soft, tenderness across lower abdomen , no rebound Extremities-no rash or deformity Neuro-AAo x3, no focal deficit Lab data as noted below. ASSESSMENT & PLAN: SIGMOID DIVERTICULITIS - - patient presented with increasing abdominal pain and diarrhea x 3 days; history of multiple episodes of diverticulitis over the past 2 years, once required abscess drainage; follows with [facility] Rectal surgery - CT abdomen /pelvis chronic sigmoid diverticulosis with mild superimposed acute diverticulitis of the low sigmoid region. Several small air bubbles within the right central pelvic fat region raising the possibility of a perforated diverticulum. -pt started on empiric Abx with IV Cipro and Flagyl - appreciate Surgery Dr. Reynoso input clinically improving , diet advanced to low residue will need continue PO Abx Cipro /Flagyl for 10 days pt will need out pt follow up with surgery -wants to follow up with Dr Moses at [facility] HTN -BP stable - continue losartan and amlodipine, HYPOTHYROIDISM - continue levothyroxine GERD - continue PPI DVT PROPHYLAXIS - SCDs; DISPOSITION possible discharge home tomorrow Medicine follow up with Dr Mazariegos Surgery follow up with Dr Moses Vital Signs: Date Time Temp Pulse Resp B/P (MAP) Pulse Ox O2 Delivery O2 Flow Rate FiO2 04/14/17 15:50 36.6 53 16 132/79 (96) 96 Room Air 04/14/17 15:30 Room Air 04/14/17 07:45 Room Air 04/14/17 07:11 36.7 66 16 131/80 (97) 94 Room Air 04/13/17 23:45 Room Air 04/13/17 23:05 36.6 67 16 124/77 (93) 94 Room Air Lab Results: Results Past 24 Hours Test 04/14/17 05:51 Range/Units Sodium Level 143 136-145 mmol/L Potassium Level 3.5 3.5-5.1 mmol/L Chloride Level 111 98-107 mmol/L Carbon Dioxide Level 25 21-32 mmol/L Anion Gap 7.0 3-11 mmol/L Blood Urea Nitrogen 5 7-18 mg/dl Creatinine 0.52 0.60-1.20 mg/dl Est Creatinine Clear Calc Drug Dose 94.5 ml/min Estimated GFR () 110.6 Estimated GFR (Non- 95.5 BUN/Creatinine Ratio 9.2 10-20 Random Glucose 95 70-99 mg/dl Calcium Level 8.2 8.5-10.1 mg/dl
[2017-04-14] MEDS: CHOLECALCIFEROL 400 INTER.UNIT TAB PO SCH (20:42)
[2017-04-14] MEDS: AMLODIPINE BESYLATE 5 MG TAB PO SCH (20:42)
[2017-04-14] MEDS: LANSOPRAZOLE SOLUTAB 30 MG PO SCH (20:42)
[2017-04-14] MEDS ORDERED: NYSTATIN SUSP 500,000 U/5 ML UDC PO SCH (21:30)
[2017-04-14 23:04] VITALS: BP 127/72; PULSE 54; TEMP 36.4; O2SAT 96
[2017-04-14] MEDS: CLOTRIMAZOLE 10 MG TROCHE MT SCH (23:04)
[2017-04-15] MEDS: ONDANSETRON INJ 2 MG/ML 2 ML VIAL IV PRN (00:45)
[2017-04-15] MEDS: LEVOTHYROXINE 100 MCG TAB PO SCH (05:26)
[2017-04-15] MEDS: CIPROFLOXACIN / D5W 400 MG in PREMIXED IN D5W 200 ML IV SCH ×2 (05:27→06:00)
[2017-04-15] MEDS: CLOTRIMAZOLE 10 MG TROCHE MT SCH ×3 (06:44→14:46)
[2017-04-15 07:43] VITALS: BP 114/69; PULSE 51; TEMP 36.7; O2SAT 97
[2017-04-15] MEDS ORDERED: CIPROFLOXACIN 500 MG TAB PO SCH (09:00)
[2017-04-15] MEDS: METRONIDAZOLE 500 MG TAB PO SCH ×2 (09:14→14:01)
[2017-04-15] MEDS: LOSARTAN POTASSIUM 50 MG TAB PO SCH (09:14)
--- NOTE | 2017-04-15 09:53 | Surgery Progress Note ---
Surgery Progress Note Date of Service Apr 15, 2017. Subjective Post OP Day: HD # 4 + feeling well, + bowel movement, + flatus, + pain controlled, + nausea, + diet (tolerated regular diet), No complaints, No chest pain, No SOB, No vomiting Objective Vital Signs: Date Time Temp Pulse Resp B/P (MAP) Pulse Ox O2 Delivery O2 Flow Rate FiO2 04/15/17 07:43 36.7 51 16 114/69 (84) 97 Room Air 04/14/17 23:30 Room Air 04/14/17 23:04 36.4 54 16 127/72 (90) 96 Room Air 04/14/17 15:50 36.6 53 16 132/79 (96) 96 Room Air 04/14/17 15:30 Room Air General Appearance: WD/WN, no apparent distress Head: normocephalic, atraumatic Neck: trachea midline Respiratory/Chest: no respiratory distress, no accessory muscle use Abdomen: normal bowel sounds, non distended, soft, no organomegaly, + tenderness (mild tenderness in RLQ) Assessment & Plan Acute Diverticulitis with possible Microperforation -vitals stable - tolerating regular diet and + bowel function - minimal abdominal pain Plan: Patient being discharged today on PO antibiotics (cipro/flagyl) will have follow-up with Dr. Moses in 2 weeks, office number given Advised low fiber diet in the next few weeks, stool softener is okay to keep stool soft and avoid constipation. Will need colonoscopy 6 weeks from now for evaluation Dr. Reynoso has seen patient, agrees with above
[2017-04-15] MEDS ORDERED: MTR500 PO (12:42)
[2017-04-15] MEDS ORDERED: CIPR1SUS PO (12:42)
--- NOTE | 2017-04-15 13:16 | Progress Note ---
Subjective Date of Service: Apr 15, 2017. Subjective Pt evaluation today including: conversation w/ patient, physical exam, lab review, review of studies, review of inpatient medication list Saw/examined the patient in room 362 She's doing well good PO intake no abdominal pain, denies fevers/chills +BM, passing gas Problem List Medical Problems: (1) C. difficile colitis Status: Acute (2) C. difficile diarrhea Status: Acute (3) Costochondritis Status: Acute (4) Dehydration Status: Acute (5) Dysuria Status: Acute (6) Left shoulder pain Status: Acute (7) Right lower quadrant abdominal pain Status: Acute (8) RUQ pain Status: Acute (9) UTI (urinary tract infection) Status: Acute Review of Systems Constitutional: No fever, No chills Respiratory: No shortness of breath Cardiac: No chest pain Abdomen: No pain, No nausea, No vomiting, No diarrhea, No constipation, No GI bleeding Medications Current Inpatient Medications Medications (Trade) Dose Ordered Sig/Barb Route Start Time Stop Time Status Last Admin Dose Admin Acetaminophen (Tylenol Tab) 650 mg Q4H PRN PO 04/11/17 13:15 05/11/17 13:14 Ondansetron HCl (Zofran Inj) 4 mg Q6H PRN IV 04/11/17 13:15 05/11/17 13:14 04/15/17 00:45 4 MG Amlodipine Besylate (Norvasc Tab) 10 mg QPM PO 04/11/17 21:00 05/11/17 20:59 04/14/17 20:42 10 MG Lansoprazole (Prevacid Solutab) 30 mg QPM PO 04/11/17 21:00 05/11/17 20:59 04/14/17 20:42 30 MG Levothyroxine Sodium (Synthroid Tab) 100 mcg DAILYBB PO 04/12/17 06:00 05/12/17 05:59 04/15/17 05:26 100 MCG Losartan Potassium (coZAAR TAB) 100 mg QAM PO 04/12/17 09:00 05/12/17 08:59 04/15/17 09:14 100 MG Cholecalciferol (Vitamin D Tab) 400 inter.unit HS PO 04/11/17 21:00 05/11/17 20:59 04/14/17 20:42 400 INTER.UNIT Hydromorphone HCl (Dilaudid Inj) 0.5 mg Q6H PRN IV 04/11/17 16:15 04/25/17 16:14 04/13/17 08:02 0.5 MG Oxycodone HCl (Roxicodone Immediate Rel Tab) 5 mg Q4 PRN PO 04/13/17 10:00 04/27/17 09:59 04/13/17 16:15 5 MG Promethazine HCl 12.5 mg/Sodium Chloride 50.5 ml @ 202 mls/hr Q6H PRN IV 04/14/17 00:30 05/14/17 00:29 04/14/17 09:00 202 MLS/HR Clotrimazole (Mycelex 10MG Sulema) 1 sulema [id number] MT 04/14/17 23:00 04/24/17 22:59 04/15/17 11:02 1 SULEMA Ciprofloxacin (Cipro Tab) 500 mg BID PO 04/15/17 09:00 04/21/17 08:59 04/15/17 09:14 500 MG Metronidazole (Flagyl Tab) 500 mg TID PO 04/15/17 09:00 04/21/17 08:59 04/15/17 09:14 500 MG Objective Vital Signs Date Time Temp Pulse Resp B/P (MAP) Pulse Ox O2 Delivery O2 Flow Rate FiO2 04/15/17 07:43 36.7 51 16 114/69 (84) 97 Room Air 04/14/17 23:30 Room Air 04/14/17 23:04 36.4 54 16 127/72 (90) 96 Room Air 04/14/17 15:50 36.6 53 16 132/79 (96) 96 Room Air 04/14/17 15:30 Room Air Physical Exam General Appearance: no apparent distress Respiratory/Chest: no respiratory distress, no accessory muscle use Cardiovascular: regular rate, rhythm, no edema, no murmur Abdomen: normal bowel sounds, non tender, soft Extremities: normal inspection, no pedal edema Neurologic/Psychiatric: no motor/sensory deficits, alert, normal mood/affect Assessment and Plan This is a 71 year old female with a PMH of HTN, hypothyroidism, GERD/Suarez's esophagus, hx. of diverticulitis presented with an acute diverticulitis Acute Sigmoid Diverticulitis has had issues with diverticulitis and abscess which required IR drainage in the past CT here shows an acute diverticulitis in the sigmoid region continue Cipro and Flagyl switching Cipro to oral solution, continue Flagyl x7 days each low residue diet on discharge 1-2 week follow-up with surgery colonoscopy in 6 weeks HTN BP stable continue losartan and amlodipine, Hypothyroidism continue levothyroxine GERD continue PPI DVT ppx SCDs FULL CODE
--- NOTE | 2017-04-15 13:23 | Discharge Summary ---
Discharge Summary Date of Service Apr 15, 2017. Discharge Summary Admission Date: Apr 11, 2017 at 13:06 Discharge Date: Apr 15, 2017 Discharge Disposition: Home Principal Diagnosis: Acute Sigmoid Diverticulitis Medication Reconciliation New Medications: Ciprofloxacin (Cipro) 500 Mg/5 Ml Stella 500 MG PO BID for 7 Days, #70 ML Metronidazole (Metronidazole) 500 Mg Tab 500 MG PO TID for 7 Days, #21 TAB Continued Medications: Amlodipine Besylate (Amlodipine Besylate) 5 Mg Tab 10 MG PO QPM 2 tablet dose Cholecalciferol (Vitamin D 400) 400 Unit Chw 400 UNITS PO HS Diphenhydramine Hcl (Benadryl Allergy) 25 Mg Tab 25 MG PO DAILY PRN for allergies Diphenhydramine-Acetaminophen (Excedrin Pm) 1 Tab Tab 0.5 TAB PO UD Lansoprazole (Prevacid Solutab) 30 Mg [place] 30 MG PO QPM Levothyroxine Sodium (Levothyroxine Sodium) 100 Mcg Tab 100 MCG PO QAM Lorazepam (Lorazepam) 0.5 Mg Tab 0.5 MG PO BID PRN for Anxiety Losartan Potassium (Cozaar) 50 Mg Tab 100 MG PO QAM 2 tablet dose Admission Information HPI (per Admitting provider): 71 year old female who presents to the ER with abdominal pain. Patient has history of multiple episodes of diverticulitis over the past 2 years. One time she did require abscess drainage. She follows with [facility]. She was recently admitted to [facility] 01/2017 for C. Diff colitis. She completed course of PO Vanco. She reports that over the past few days she has had worsening RLQ abdominal pain. This morning she reports her entire abdomen hurt. She reports she has had diarrhea over the past few days as well. She denies BRBPR or dark tarry stools. She has had nausea but denies vomiting. No fever or chills. She denies chest pain and shortness of breath. No lightheadedness, dizziness, diaphoresis, or syncopal events. She denies any urinary symptoms. In the ER, CT abd/pelvis is showing chronic sigmoid diverticulosis with mild superimposed acute diverticulitis of the low sigmoid region; Several small air bubbles within the right central pelvic fat region raising the possibility of a perforated diverticulum. Patient is afebrile without leukocytosis. BP is stable. She was given IVF, IV Zofran, IV Dilaudid, IVF, IV solu-cortef, and IV Benadryl. Physical Exam (per Admitting): General Appearance: no apparent distress Head: normocephalic Eyes: normal inspection ENT: hearing grossly normal Neck: supple, no JVD Respiratory/Chest: lungs clear, normal breath sounds, no respiratory distress Cardiovascular: regular rate, rhythm, no edema, normal peripheral pulses Abdomen/GI: normal bowel sounds, soft, + tenderness (generalized, more in the RLQ ) Extremities/Musculoskelatal: normal inspection, no calf tenderness Neurologic/Psych: no motor/sensory deficits, alert, normal mood/affect, oriented x 3 Skin: normal color, warm/dry Hospital Course This is a 71 year old female with a PMH of HTN, hypothyroidism, GERD/Suarez's esophagus, hx. of diverticulitis presented with an acute diverticulitis Acute Sigmoid Diverticulitis has had issues with diverticulitis and abscess which required IR drainage in the past CT here shows an acute diverticulitis in the sigmoid region continue Cipro and Flagyl switching Cipro to oral solution, continue Flagyl x7 days each low residue diet on discharge 1-2 week follow-up with surgery colonoscopy in 6 weeks HTN BP stable continue losartan and amlodipine, Hypothyroidism continue levothyroxine GERD continue PPI DVT ppx SCDs FULL CODE Total time spent on discharge = 33 minutes This includes examination of the patient, discharge planning, medication reconciliation, and communication with other providers. Discharge Instructions Please follow-up with Dr. Mazariegos on April 18 at 1:00PM Take Cipro and Flagyl for 7 days Follow-up with Dr. Reynoso, general surgery, in 1-2 weeks Follow a low fiber diet for now in 6 weeks, you will need a colonoscopy
[2017-04-15 14:08] VITALS: BP 114/69; PULSE 51; TEMP 36.7; O2SAT 97
[2017-04-27] MEDS ORDERED: MTR500 PO (14:06)
[2017-04-27] MEDS ORDERED: CIPR1SUS PO (14:06)
[2017-06-06] MEDS ORDERED: NYSS5 PO (16:41)
[2017-06-06] MEDS ORDERED: LCTX PO (16:41)
[2017-06-06] MEDS ORDERED: CPRS5005 PO (16:41)
== END 2017-04-15 14:46 | disposition home or self-care (01) | DRG 392 ==
LOC: C.EDB 08:54 → C.MSW 13:06 → EDBEDREQ 13:15 → ENRESERV 13:15
PROVIDERS: ADMIT Hospitalist; ATTEND Family Medicine
DX: K57.32 Diverticulitis of large intestine without perforation or abscess without bleeding (principal); I10 Essential (primary) hypertension; E03.9 Hypothyroidism, unspecified; K21.9 Gastro-esophageal reflux disease without esophagitis; Z80.3 Family history of malignant neoplasm of breast; Z80.1 Family history of malignant neoplasm of trachea, bronchus and lung; F41.9 Anxiety disorder, unspecified; F17.200 Nicotine dependence, unspecified, uncomplicated

== ENCOUNTER 2017-04-25 12:45 | Inpatient (IN) | payer BC, OTHER ==
[~2017-04-25] VITALS: Ht 154.9 cm; Wt 80.5 kg
[~2017-04-25 12:45] MED LIST changes: +CIPR1SUS PO; +DIPH38TA PO; -FLUT0.15 NAE; +MTR500 PO; -VNCSEMP PO
--- NOTE | 2017-04-25 13:41 | DIAGNOSTIC IMAGING REPORT ---
ABDOMEN AND PELVIS CT WITHOUT CONTRAST CT DOSE: 501.78 mGy.cm HISTORY: Right lower quadrant abdominal pain. TECHNIQUE: Multiaxial CT images of the abdomen and pelvis were performed without contrast. A dose lowering technique was utilized adhering to the principles of ALARA. COMPARISON STUDY: Abdomen and pelvis CT 04/11/2017. FINDINGS: The lung bases are clear. No suspicious lytic or blastic osseous lesions. Bilateral L5 pars defects. Cholecystectomy. Prior right inguinal hernia repair. Multiple hepatic cysts are again noted. These remain unchanged. The unenhanced liver and adrenal glands are unremarkable. Stable 1.4 cm cystic lesion at the pancreatic head. Small left peripelvic renal cysts stable 8 mm exophytic hypodense lesion within the lower pole the left kidney. This is too small to characterize. No renal stones. No hydronephrosis. No retroperitoneal lymphadenopathy. The bladder, uterus, and right ovary are unremarkable. Mild inflammatory change within the left adnexa surrounding the left ovary. This is secondary to the inflamed mid to distal sigmoid colon diverticulum best seen on image 309. This is consistent with mild acute diverticulitis. The degree of inflammatory change has slightly improved compared the prior study. Punctate foci of gas within the pelvic mesenteric fat have resolved. There is a tiny fistula extending from the bladder dome to the small bowel with a tiny interloop abscess fistula measuring 1.5 cm. The fistula tract from the bladder dome is best seen on image 303. Mild bladder wall thickening. Punctate focus of gas inferior to the left ovary where there is a small amount of phlegmon/inflammatory change. This is unchanged and may represent a tiny abscess/fistula. No evidence for bowel obstruction. Best seen on image 356 there appears to be a small rectovaginal fistula. IMPRESSION: 1. Slight improvement in the acute sigmoid diverticulitis. 2. Tiny focus of gas and phlegmon inferior to the left ovary with mild inflammatory change surrounding the left ovary. This small focus of gas favors a tiny fistula/abscess from the adjacent diverticulitis. This remains unchanged. 3. There is a fistula extending from the bladder dome to the small bowel within the mid pelvis where there is associated small interloop abscess/fistula. This is not significantly changed. Mild bladder wall thickening persists. 4. Suggestion of a rectovaginal fistula. 5. Stable 1.4 cm cystic lesion within the pancreatic head compared to the 2013 examination. Therefore, this likely represents a small side branch intraductal papillary mucinous neoplasm. Electronically signed by: Chencho Leonardo M.D. 04/25/2017 1:39 PM Dictated Date/Time: 04/25/2017 1:19 PM
[2017-04-25] MEDS ORDERED: ACETAMINOPHEN 325 MG TAB PO PRN (14:45)
[2017-04-25] MEDS ORDERED: ONDANSETRON INJ 2 MG/ML 2 ML VIAL IV PRN (14:45)
[2017-04-25] MEDS ORDERED: LORAZEPAM 0.5 MG TAB PO PRN (14:45)
[2017-04-25 15:00] VITALS: BP 158/84; PULSE 73; TEMP 36.8; O2SAT 97; Ht 154.9 cm; Wt 80.5 kg
[2017-04-25] MEDS ORDERED: D5W AND 1/2NSS + 20MEQ KCL 1,000 ML IV SCH (15:30)
[2017-04-25] MEDS ORDERED: CIPROFLOXACIN / D5W 400 MG in PREMIXED IN D5W 200 ML IV SCH (16:00)
[2017-04-25] MEDS ORDERED: METRONIDAZOLE / NSS 500 MG in PREMIXED NSS 100 ML IV SCH (16:00)
--- NOTE | 2017-04-25 16:06 | History and Physical ---
History & Physical Date & Time of Service: Apr 25, 2017 at 15:53 Chief Complaint: Acute Diverticulitis Primary Care Physician: Sophie Mazariegos M.D. History of Present Illness Source: patient Elizabeth Quinn is a 71 year old woman with HTN, Hyperlipidemia, Hypothyroidism, GERD, Suarez's esophagus, left breast cancer s/p lumpectomy and radiation and multiple previous episodes of diverticulitis (managed non operatively), most recently admitted earlier this month. She was sent home with a 14 day course of cipro / flagyl which she completed 2 days ago. She was seen in clinic this morning to discuss elective sigmoid colectomy, however in clinic she stated she had been having 3 days of increased low abdominal pain, decreased appetite with nausea and malaise. Also notes having multiple loose BMs yesterday; she has a history of C diff infections. She has found nothing makes the pain better. Pain is intermittently worse. 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 Denies fever, chills, headaches, dizziness, vision changes, chest pain, SOB, constipation, melena / hematochezia, dysuria or urinary problems, pain / numbness / swelling / tingling in extremities. She has had an inguinal hernia repair, appendectomy, cholecystectomy, tonsillectomy in the past, as well as several orthopedic procedures. Past Medical/Surgical History Medical Problems: (1) Suarez esophagus Status: Chronic (2) Diarrhea Status: Resolved (3) Diverticulitis Permanent Comment: multiple episodes since 2014 one episode with abscess requiring drainage; no other surgeries follows with [facility] Status: Chronic (4) GERD (gastroesophageal reflux disease) Status: Chronic (5) HLD (hyperlipidemia) Status: Chronic (6) HTN (hypertension) Status: Chronic (7) Hypothyroidism Status: Chronic (8) Intra-abdominal abscess Status: Resolved (9) Intraductal carcinoma of left breast Permanent Comment: Abnormal left breast mammogram Status post stereotactic biopsy 11/14/2015 revealing DCIS grade 1 Estrogen receptor positive and progesterone receptor positive Status post needle localization lumpectomy 12/20/2015 Stage pTis pNX Status post completion of radiation therapy 03/01/2016 received 3850 cGy utilizing accelerated partial breast irradiation. Status: Chronic Surgical Problems: (1) H/O foot surgery Status: Chronic (2) H/O inguinal hernia repair Status: Chronic (3) History of appendectomy Status: Chronic (4) Hx of tonsillectomy Status: Chronic (5) S/P cholecystectomy Status: Chronic (6) S/P left knee arthroscopy Status: Chronic (7) S/P right knee arthroscopy Status: Chronic (8) S/P wrist surgery Permanent Comment: left Status: Chronic Family History FH: breast cancer MOTHER FH: lung cancer FATHER Social History Smoking Status: Former Smoker Drug Use: none Immunizations History of Influenza Vaccine: Yes Influenza Vaccine Date: Aug 07, 2016 Multi-Drug Resistant Organisms History of MDRO: No Allergies Coded Allergies: Iodinated Diagnostic Agents (Verified Allergy, Severe, sob, 04/11/17) Azithromycin (Verified Allergy, Intermediate, RASH, 04/11/17) Levalbuterol Hydrochloride (Verified Allergy, Intermediate, CHEST PAIN, 07/18) Minocycline (Verified Allergy, Intermediate, RASH, 04/11/17) Iodine (Verified Allergy, Mild, IV CONTRAST, 04/11/17) Cefaclor (Verified Allergy, Unknown, HIVES, 04/11/17) Erythromycin (Verified Allergy, Unknown, HIVES, 04/11/17) Nitrofurantoin (Verified Allergy, Unknown, 04/11/17) Phenazopyridine (Verified Allergy, Unknown, sob, 04/11/17) Sulfa Antibiotics (Verified Allergy, Unknown, HIVES, 04/11/17) Levofloxacin (Verified Adverse Reaction, Intermediate, ABDOMINAL PAIN, 07/18) Morphine (Verified Adverse Reaction, Intermediate, EXCESSIVE VOMITING, 07/18) Pt. states excessive vomiting with this medication Home Medications Scheduled Amlodipine Besylate (Amlodipine Besylate), 10 MG PO QPM Cholecalciferol (Vitamin D 400), 400 UNITS PO HS Ciprofloxacin (Cipro), 500 MG PO BID Diphenhydramine-Acetaminophen (Excedrin Pm), 0.5 TAB PO UD Lansoprazole (Prevacid Solutab), 30 MG PO QPM Levothyroxine Sodium (Levothyroxine Sodium), 100 MCG PO QAM Losartan Potassium (Cozaar), 100 MG PO QAM Metronidazole (Metronidazole), 500 MG PO TID Scheduled PRN Diphenhydramine Hcl (Benadryl Allergy), 25 MG PO DAILY PRN for allergies Lorazepam (Lorazepam), 0.5 MG PO BID PRN for Anxiety Review of Systems Constitutional: No fever, No chills, No weight loss Eyes: No worsening of vision Respiratory: No cough, No sputum, No shortness of breath Cardiovascular: No chest pain Abdomen: + pain, + nausea, + diarrhea Genitourinary - Female: No dysuria, No urinary frequency, No urinary urgency Endocrine: + fatigue Physical Exam Vital Signs Date Time Temp Pulse Resp B/P (MAP) Pulse Ox O2 Delivery O2 Flow Rate FiO2 04/25/17 15:00 36.8 73 18 158/84 (108) 97 Room Air General Appearance: WD/WN, no apparent distress Head: normocephalic, atraumatic Eyes: normal inspection Neck: supple Respiratory/Chest: lungs clear, normal breath sounds Cardiovascular: regular rate, rhythm, no edema Abdomen/GI: normal bowel sounds, soft, + tenderness (Mild tenderness to palpation in right lower quadrant, no rebound / guarding) Extremities/Musculoskelatal: normal inspection Neurologic/Psych: alert, oriented x 3 Skin: normal color, warm/dry, no rash Diagnostics Laboratory Results CBC/diff, BMP in process Diagnostic Radiology 04/25/17 CT Abd / Pelvis: IMPRESSION: 1. Slight improvement in the acute sigmoid diverticulitis. 2. Tiny focus of gas and phlegmon inferior to the left ovary with mild inflammatory change surrounding the left ovary. This small focus of gas favors a tiny fistula/abscess from the adjacent diverticulitis. This remains unchanged. 3. There is a fistula extending from the bladder dome to the small bowel within the mid pelvis where there is associated small interloop abscess/fistula. This is not significantly changed. Mild bladder wall thickening persists. 4. Suggestion of a rectovaginal fistula. 5. Stable 1.4 cm cystic lesion within the pancreatic head compared to the 2013 examination. Therefore, this likely represents a small side branch intraductal papillary mucinous neoplasm. Impression Assessment and Plan Elizabeth Quinn is a 71 year old woman with HTN, Hyperlipidemia, Hypothyroidism, GERD, Suarez's esophagus, left breast cancer s/p lumpectomy and radiation and multiple previous episodes of diverticulitis who is admitted with continued acute diverticulitis. -Admit to Med / Surg -No acute surgical intervention at this time -Clear liquids for now, IVF hydration -Follow up CBC/diff, BMP; C diff sample obtained and sent from clinic this morning -IV Cipro / flagyl -Pain and nausea control as needed -Will continue to trend exam, hopefully can resolve acute episode and complete sigmoid colectomy as an elective procedure Maame Grimm MD 04/25/17 Level of Care Med/Surg VTE Prophylaxis VTE Risk Assessment Done? Y/N: Yes Risk Level: Low Given or contraindicated: Enoxaparin (Lovenox)SQ, SCD's
[2017-04-25] MEDS: METRONIDAZOLE / NSS 500 MG in PREMIXED NSS 100 ML IV SCH (16:15)
[2017-04-25] MEDS: AMLODIPINE BESYLATE 5 MG TAB PO SCH (22:08)
[2017-04-25] MEDS: LANSOPRAZOLE SOLUTAB 30 MG PO SCH (22:08)
[2017-04-25 23:28] VITALS: BP 117/76; PULSE 59; TEMP 36.5; O2SAT 95
[2017-04-26] MEDS: METRONIDAZOLE / NSS 500 MG in PREMIXED NSS 100 ML IV SCH ×4 (01:24→23:47)
[2017-04-26] MEDS: LEVOTHYROXINE 100 MCG TAB PO SCH (05:25)
[2017-04-26 06:54] VITALS: BP 115/61; PULSE 52; TEMP 36.5; O2SAT 95
[2017-04-26] MEDS: CIPROFLOXACIN / D5W 400 MG in PREMIXED IN D5W 200 ML IV SCH ×2 (08:41→20:23)
[2017-04-26] MEDS: ENOXAPARIN 40 MG/0.4 ML SYR SQ SCH (08:43)
[2017-04-26] MEDS: LOSARTAN POTASSIUM 50 MG TAB PO SCH (08:43)
[2017-04-26] MEDS: D5W AND 1/2NSS + 20MEQ KCL 1,000 ML IV SCH ×2 (08:44→15:46)
[2017-04-26 09:03] LABS: BASO % 0.4 %; BASO ABS # 0.02 K/uL (0-0.2); COMPLETE YES; EOS % 2.1 %; HEMATOCRIT 38.9 % (37-47); IG% 0.2 %; LYMPH % 24.3 %; LYMPH ABS # 1.26 K/uL (1.2-3.4); MEAN CORPUSCULAR HEMOGLOBIN 27.2 pg (25-34); MEAN CORPUSCULAR HGB CONC 32.4 g/dl (32-36); MEAN PLATELET VOLUME 10.1 fL (7.4-10.4); MONO % 7.1 %; NEUT % 65.9 %; PLATELET COUNT 325 K/uL (130-400); RED BLOOD COUNT 4.63 M/uL (4.2-5.4); WHITE BLOOD COUNT 5.18 K/uL (4.8-10.8)
[2017-04-26 09:38] LABS: BUN/CREATININE RATIO 11.4 (10-20); CALCIUM 8.8 mg/dl (8.5-10.1); CREATININE 0.69 mg/dl (0.60-1.20); POTASSIUM 4.3 mmol/L (3.5-5.1)
--- NOTE | 2017-04-26 09:50 | Surgery Progress Note ---
Surgery Progress Note Date of Service Apr 26, 2017. Subjective Patient examined at bedside this morning. Afebrile, vitals stable on room air, no acute events overnight. Continues to have mild RLQ pain. Tolerating clear liquids without N/V. Ambulating and voiding without difficulty. Had a BM this morning (less frequent than prior to admission). Objective Vital Signs: Date Time Temp Pulse Resp B/P (MAP) Pulse Ox O2 Delivery O2 Flow Rate FiO2 04/26/17 07:55 Room Air 04/26/17 06:54 36.5 52 18 115/61 (79) 95 Room Air 04/26/17 00:00 Room Air 04/25/17 23:28 36.5 59 16 117/76 (90) 95 Room Air 04/25/17 15:45 Room Air 04/25/17 15:00 36.8 73 18 158/84 (108) 97 Room Air 04/25/17 15:00 36.8 73 18 158/84 Room Air General Appearance: WD/WN, no apparent distress Head: normocephalic Neck: supple Respiratory/Chest: lungs clear, normal breath sounds, no respiratory distress Cardiovascular: regular rate, rhythm Abdomen: normal bowel sounds, non distended, soft, + tenderness (Mild tenderness to palpation in RLQ, no rebound / guarding) Laboratory Results: Results Past 24 Hours Test 04/26/17 08:03 Range/Units White Blood Count 5.18 4.8-10.8 K/uL Red Blood Count 4.63 4.2-5.4 M/uL Hemoglobin 12.6 12.0-16.0 g/dL Hematocrit 38.9 37-47 % Mean Corpuscular Volume 84.0 80-100 fL Mean Corpuscular Hemoglobin 27.2 25-34 pg Mean Corpuscular Hemoglobin Concent 32.4 32-36 g/dl Platelet Count 325 130-400 K/uL Mean Platelet Volume 10.1 7.4-10.4 fL Neutrophils (%) (Auto) 65.9 % Lymphocytes (%) (Auto) 24.3 % Monocytes (%) (Auto) 7.1 % Eosinophils (%) (Auto) 2.1 % Basophils (%) (Auto) 0.4 % Neutrophils # (Auto) 3.41 1.4-6.5 K/uL Lymphocytes # (Auto) 1.26 1.2-3.4 K/uL Monocytes # (Auto) 0.37 0.11-0.59 K/uL Eosinophils # (Auto) 0.11 0-0.5 K/uL Basophils # (Auto) 0.02 0-0.2 K/uL RDW Standard Deviation 44.4 36.4-46.3 fL RDW Coefficient of Variation 14.4 11.5-14.5 % Immature Granulocyte % (Auto) 0.2 % Immature Granulocyte # (Auto) 0.01 0.00-0.02 K/uL Sodium Level 138 136-145 mmol/L Potassium Level 4.3 3.5-5.1 mmol/L Chloride Level 107 98-107 mmol/L Carbon Dioxide Level 26 21-32 mmol/L Anion Gap 5.0 3-11 mmol/L Blood Urea Nitrogen 8 7-18 mg/dl Creatinine 0.69 0.60-1.20 mg/dl Est Creatinine Clear Calc Drug Dose 70.8 ml/min Estimated GFR () 100.8 Estimated GFR (Non- 87.0 BUN/Creatinine Ratio 11.4 10-20 Random Glucose 107 70-99 mg/dl Calcium Level 8.8 8.5-10.1 mg/dl Assessment & Plan Elizabeth Quinn is a 71 year old woman with HTN, Hyperlipidemia, Hypothyroidism, GERD, Suarez's esophagus, left breast cancer s/p lumpectomy and radiation and multiple previous episodes of diverticulitis who is admitted with continued acute diverticulitis. No leukocytosis, remains afebrile. Pain is well controlled. -Continue non operative management -Advance to regular diet as tolerated -C diff sent from clinic yesterday was negative -Continue IV Cipro / flagyl -Pain and nausea control as needed -Will continue to trend exam, hopefully can resolve acute episode and complete sigmoid colectomy as an elective procedure Maame Grimm MD 04/26/17
[2017-04-26 14:54] VITALS: BP 117/70; PULSE 60; TEMP 36.8; O2SAT 97
[2017-04-26] MEDS: AMLODIPINE BESYLATE 5 MG TAB PO SCH (20:26)
[2017-04-26] MEDS: LANSOPRAZOLE SOLUTAB 30 MG PO SCH (20:26)
[2017-04-26] MEDS ORDERED: OXYCODONE HCL IR 5 MG TAB (IMMEDIATE RELEASE) PO PRN ×2 (20:30)
[2017-04-26 22:51] VITALS: BP 108/57; PULSE 50; TEMP 36.3; O2SAT 95
[2017-04-27] MEDS: D5W AND 1/2NSS + 20MEQ KCL 1,000 ML IV SCH ×2 (01:30→11:54)
[2017-04-27] MEDS: LEVOTHYROXINE 100 MCG TAB PO SCH (05:46)
[2017-04-27 06:57] VITALS: BP 130/75; PULSE 64; TEMP 36.5; O2SAT 91
[2017-04-27 07:23] LABS: BASO % 0.6 %; BASO ABS # 0.03 K/uL (0-0.2); COMPLETE YES; IG% 0.2 %; LYMPH % 27.3 %; LYMPH ABS # 1.46 K/uL (1.2-3.4); MEAN CELL VOLUME 84.6 fL (80-100); MEAN CORPUSCULAR HEMOGLOBIN 27.4 pg (25-34); MEAN CORPUSCULAR HGB CONC 32.4 g/dl (32-36); MEAN PLATELET VOLUME 10.3 fL (7.4-10.4); MONO % 8.6 %; NEUT % 60.3 %; PLATELET COUNT 311 K/uL (130-400); RED BLOOD COUNT 4.49 M/uL (4.2-5.4); WHITE BLOOD COUNT 5.34 K/uL (4.8-10.8)
[2017-04-27 07:51] LABS: BUN/CREATININE RATIO 9.7 (10-20); CALCIUM 8.5 mg/dl (8.5-10.1); CREATININE 0.7 mg/dl (0.60-1.20); POTASSIUM 4.6 mmol/L (3.5-5.1)
[2017-04-27] MEDS: METRONIDAZOLE / NSS 500 MG in PREMIXED NSS 100 ML IV SCH ×2 (08:38→16:01)
[2017-04-27] MEDS: CIPROFLOXACIN / D5W 400 MG in PREMIXED IN D5W 200 ML IV SCH (08:38)
[2017-04-27] MEDS: LOSARTAN POTASSIUM 50 MG TAB PO SCH (08:38)
[2017-04-27] MEDS: ENOXAPARIN 40 MG/0.4 ML SYR SQ SCH (08:39)
--- NOTE | 2017-04-27 09:40 | Surgery Progress Note ---
Surgery Progress Note Date of Service Apr 27, 2017. Subjective Patient examined at bedside this morning. Afebrile, vitals stable overnight on room air, no acute events. Pain is improved today. Tolerated breakfast without N/V. Ambulating to bathroom and voiding without difficulty. Having BMs. Feels well, would like to go home. Objective Vital Signs: Date Time Temp Pulse Resp B/P (MAP) Pulse Ox O2 Delivery O2 Flow Rate FiO2 04/27/17 08:09 Room Air 04/27/17 06:57 36.5 64 17 130/75 (93) 91 Room Air 04/27/17 00:00 Room Air 04/26/17 22:51 36.3 50 16 108/57 (74) 95 Room Air 04/26/17 16:00 Room Air 04/26/17 14:54 36.8 60 16 117/70 (86) 97 General Appearance: WD/WN, no apparent distress Head: normocephalic Neck: supple Respiratory/Chest: lungs clear, normal breath sounds Cardiovascular: regular rate, rhythm Abdomen: normal bowel sounds, non tender, non distended, soft (no rebound / guarding) Extremities: normal range of motion Laboratory Results: Results Past 24 Hours Test 04/27/17 06:21 Range/Units White Blood Count 5.34 4.8-10.8 K/uL Red Blood Count 4.49 4.2-5.4 M/uL Hemoglobin 12.3 12.0-16.0 g/dL Hematocrit 38.0 37-47 % Mean Corpuscular Volume 84.6 80-100 fL Mean Corpuscular Hemoglobin 27.4 25-34 pg Mean Corpuscular Hemoglobin Concent 32.4 32-36 g/dl Platelet Count 311 130-400 K/uL Mean Platelet Volume 10.3 7.4-10.4 fL Neutrophils (%) (Auto) 60.3 % Lymphocytes (%) (Auto) 27.3 % Monocytes (%) (Auto) 8.6 % Eosinophils (%) (Auto) 3.0 % Basophils (%) (Auto) 0.6 % Neutrophils # (Auto) 3.22 1.4-6.5 K/uL Lymphocytes # (Auto) 1.46 1.2-3.4 K/uL Monocytes # (Auto) 0.46 0.11-0.59 K/uL Eosinophils # (Auto) 0.16 0-0.5 K/uL Basophils # (Auto) 0.03 0-0.2 K/uL RDW Standard Deviation 44.9 36.4-46.3 fL RDW Coefficient of Variation 14.5 11.5-14.5 % Immature Granulocyte % (Auto) 0.2 % Immature Granulocyte # (Auto) 0.01 0.00-0.02 K/uL Sodium Level 138 136-145 mmol/L Potassium Level 4.6 3.5-5.1 mmol/L Chloride Level 108 98-107 mmol/L Carbon Dioxide Level 25 21-32 mmol/L Anion Gap 5.0 3-11 mmol/L Blood Urea Nitrogen 7 7-18 mg/dl Creatinine 0.70 0.60-1.20 mg/dl Est Creatinine Clear Calc Drug Dose 69.8 ml/min Estimated GFR () 100.3 Estimated GFR (Non- 86.6 BUN/Creatinine Ratio 9.7 10-20 Random Glucose 217 70-99 mg/dl Calcium Level 8.5 8.5-10.1 mg/dl Assessment & Plan Elizabeth Quinn is a 71 year old woman with HTN, Hyperlipidemia, Hypothyroidism, GERD, Suarez's esophagus, left breast cancer s/p lumpectomy and radiation and multiple previous episodes of diverticulitis who is admitted with continued acute diverticulitis. No leukocytosis, remains afebrile. Pain is well controlled. -Diet as tolerated -Transition Cipro / flagyl from IV to PO form -Pain and nausea control as needed -Plan to discharge home today with PO cipro / flagyl to continue until elective operation -Patient will follow up in General Surgery clinic in 1 to 2 weeks to discuss surgery -Patient and her are in agreement with this plan Maame Grimm MD 04/27/17
--- NOTE | 2017-04-27 13:53 | Discharge Instructions ---
Discharge Instructions Date of Service Apr 27, 2017. Admission Reason for Admission: Acute Diverticulitis Discharge Discharge Diagnosis / Problem: Acute diverticulitis Discharge Goals Goal(s): Decrease discomfort, Improve function Activity Recommendations Activity Limitations: resume your previous activity Lifting Limitations: none Exercise/Sports Limitations: rest today, gradually increase as tolerated May Resume Sexual Activity: when tolerated Shower/Bathe: no limitations Driving or Machine Use: no limitations . Instructions / Follow-Up Instructions / Follow-Up -Please call [phone] to schedule an appointment in clinic with Dr. Moses in 1 to 2 weeks. -Continue taking the Ciprofloxacin and Flagyl until directed otherwise -You may take Tylenol or Ibuprofen as needed for pain. Use as directed. -There are no limitations on your diet. You may resume your previous diet. Current Hospital Diet Patient's current hospital diet: Regular Diet Discharge Diet Recommended Diet: Regular Diet Procedures Procedures Performed: None Pending Studies Studies pending at discharge: no Medical Emergencies . Who to Call and When: Medical Emergencies: If at any time you feel your situation is an emergency, please call 911 immediately. . Non-Emergent Contact Non-Emergency issues call your: Primary Care Provider, Surgeon Call Non-Emergent contact if: temperature is above 101.5, your pain is not controlled, your pain is worsening . "Provider Documentation" section prepared by Maame Grimm. . VTE Core Measure Inpt VTE Proph given/why not?: Treatment not indicated
[2017-04-27] MEDS ORDERED: MTR500 PO (14:06)
[2017-04-27] MEDS ORDERED: CIPR1SUS PO (14:06)
[2017-04-27 15:08] VITALS: BP 146/70; PULSE 53; TEMP 37; O2SAT 97
[2017-04-27 16:12] VITALS: BP 146/70; PULSE 53; TEMP 37; O2SAT 97
[2017-04-27] MEDS ORDERED: COUGH DROP (SUGAR FREE) LOZ 24 LOZ/1 BOX ONE (18:05)
--- NOTE | 2017-04-29 09:16 | Discharge Summary ---
Discharge Summary Dates Admission Date / Time: Apr 25, 2017 at 14:56 Discharge Date: Apr 27, 2017 Dispostion / Condition Discharge Disposition: Home Condition at Discharge: Good Principal Diagnosis (1) Acute diverticulitis Problem List (1) Acute diverticulitis (2) Intraductal carcinoma of left breast (3) HTN (hypertension) (4) Diverticulitis (5) HLD (hyperlipidemia) (6) Hypothyroidism (7) GERD (gastroesophageal reflux disease) (8) Suarez esophagus Consultations / Procedures Consultations: None Procedures: None Pending Studies / Follow-Up None Medication Reconciliation Continued Medications: Amlodipine Besylate (Amlodipine Besylate) 5 Mg Tab 10 MG PO QPM 2 tablet dose Cholecalciferol (Vitamin D 400) 400 Unit Chw 400 UNITS PO HS Ciprofloxacin (Cipro) 500 Mg/5 Ml Stella 500 MG PO BID for 30 Days, #300 ML (This prescription has been renewed) Diphenhydramine Hcl (Benadryl Allergy) 25 Mg Tab 25 MG PO DAILY PRN for allergies Diphenhydramine-Acetaminophen (Excedrin Pm) 1 Tab Tab 0.5 TAB PO UD Lansoprazole (Prevacid Solutab) 30 Mg [place] 30 MG PO QPM Levothyroxine Sodium (Levothyroxine Sodium) 100 Mcg Tab 100 MCG PO QAM Lorazepam (Lorazepam) 0.5 Mg Tab 0.5 MG PO BID PRN for Anxiety Losartan Potassium (Cozaar) 50 Mg Tab 100 MG PO QAM 2 tablet dose Metronidazole (Metronidazole) 500 Mg Tab 500 MG PO TID for 30 Days, #90 TAB (This prescription has been renewed) Admission HPI Per the Admitting provider: Elizabeth Quinn is a 71 year old woman with HTN, Hyperlipidemia, Hypothyroidism, GERD, Suarez's esophagus, left breast cancer s/p lumpectomy and radiation and multiple previous episodes of diverticulitis (managed non operatively), most recently admitted earlier this month. She was sent home with a 14 day course of cipro / flagyl which she completed 2 days ago. She was seen in clinic this morning to discuss elective sigmoid colectomy, however in clinic she stated she had been having 3 days of increased low abdominal pain, decreased appetite with nausea and malaise. Also notes having multiple loose BMs yesterday; she has a history of C diff infections. She has found nothing makes the pain better. Pain is intermittently worse. 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 Denies fever, chills, headaches, dizziness, vision changes, chest pain, SOB, constipation, melena / hematochezia, dysuria or urinary problems, pain / numbness / swelling / tingling in extremities. She has had an inguinal hernia repair, appendectomy, cholecystectomy, tonsillectomy in the past, as well as several orthopedic procedures. Admission Exam Per the Admitting provider: General Appearance: WD/WN, no apparent distress Head: normocephalic, atraumatic Eyes: normal inspection Neck: supple Respiratory/Chest: lungs clear, normal breath sounds Cardiovascular: regular rate, rhythm, no edema Abdomen/GI: normal bowel sounds, soft, + tenderness (Mild tenderness to palpation in right lower quadrant, no rebound / guarding) Extremities/Musculoskelatal: normal inspection Neurologic/Psych: alert, oriented x 3 Skin: normal color, warm/dry, no rash Hospital Course (1) Acute diverticulitis Patient was directly admitted to the hospital by Dr. Grimm following an outpatient CT scan for increasing RLQ abdominal pain, nausea, and malaise. She was admitted to medical/surgical floor. She was started on clear liquids, IV fluids, IV antibiotics (cipro/flagyl), IV pain medication and po pain medication as needed, PO home medications, and IV Zofran. Hospital day # 1 she tolerated clear liquids well. She was still having some abdominal pain. Vitals stable, no nausea or vomiting. Diet was advanced to regular diet as tolerated. HD # 2 she was feeling much better. Tolerated regular diet and pain was resolved. The IV antibiotics were switched to oral abx. She was discharged home on Hospital day # 2 in stable condition. She was discharged home with instructions to take Cipro/Flagyl continuously until her elective sigmoid colon resection to prevent any further episodes of acute diverticulitis. She is to follow-up with Dr. Moses in 1-2 weeks to discuss elective surgery and possible need for referral to [facility] given extent of diverticulitis and possible fistulas. Overall hospital course was uneventful. Discharge Instructions as given to patient Copies To Primary Care Provider: Sophie Mazariegos M.D..
[2017-06-06] MEDS ORDERED: NYSS5 PO (16:41)
[2017-06-06] MEDS ORDERED: CPRS5005 PO (16:41)
[2017-06-06] MEDS ORDERED: LCTX PO (16:41)
== END 2017-04-27 18:15 | disposition home or self-care (01) | DRG 392 ==
LOC: C.CTS 12:45 → C.MSW 14:56
PROVIDERS: ADMIT Student in an Organized Health Care Education/Training Program; ATTEND Student in an Organized Health Care Education/Training Program
DX: K57.92 Diverticulitis of intestine, part unspecified, without perforation or abscess without bleeding (principal); I10 Essential (primary) hypertension; E78.5 Hyperlipidemia, unspecified; E03.9 Hypothyroidism, unspecified; K21.9 Gastro-esophageal reflux disease without esophagitis; K22.70 Barrett's esophagus without dysplasia; Z85.3 Personal history of malignant neoplasm of breast; Z87.891 Personal history of nicotine dependence; Z90.49 Acquired absence of other specified parts of digestive tract; Z79.899 Other long term (current) drug therapy; Z80.3 Family history of malignant neoplasm of breast; Z80.1 Family history of malignant neoplasm of trachea, bronchus and lung

== ENCOUNTER 2017-06-03 20:21 | Inpatient (IN) | payer BC, OTHER ==
[~2017-06-03] VITALS: Ht 154.9 cm; Wt 77.8 kg
[2017-06-03 20:29] VITALS: Ht 154.9 cm; Wt 77.8 kg
[2017-06-03] MEDS ORDERED: ONDANSETRON INJ 2 MG/ML 2 ML VIAL IV STA (21:17)
[2017-06-03] MEDS ORDERED: HYDROmorphone INJ 1 MG/ML SYR IV STA (21:17)
--- NOTE | 2017-06-03 21:21 | EMERGENCY ROOM VISIT NOTE ---
History Report prepared by Aracelis: Miguel Nichols Under the Supervision of: Dr. Jamar Rodríguez M.D. First contact with patient: 21:10 Chief Complaint: ABDOMINAL PAIN Stated Complaint: DIALYSIS Nursing Triage Summary: Patient with abdominal pain and nausea for about 1 week. History of diverticulitis, concerned for the same. History of Present Illness The patient is a 71 year old female who presents to the Emergency Room with complaints of abdominal pain that began 1 week ago. She rates her pain a 7/10 in severity. She has a history of diverticulitis. She believes that her symptoms today are those of diverticulitis. When she comes into the ER, they start her on Cipro and Flagyl. However, her doctor does not want her to be on these this time. Her pain radiates around into her back. She does not receive dialysis treatments. She is also nauseated. She's not having fevers. Source of History: patient Onset: 1 week ago Position: abdomen Symptom Intensity: 7/10 Quality: sharp Timing: constant Associated Symptoms: + nausea, + back pain, No fevers Review of Systems See HPI for pertinent positives & negatives. A total of 10 systems reviewed and were otherwise negative. 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 Surgical Problems: (1) H/O foot surgery (2) H/O inguinal hernia repair (3) History of appendectomy (4) Hx of tonsillectomy (5) S/P cholecystectomy (6) S/P left knee arthroscopy (7) S/P right knee arthroscopy (8) S/P wrist surgery Family History FH: breast cancer MOTHER FH: lung cancer FATHER Social History Smoking Status: Never Smoker Alcohol Use: none Drug Use: none Housing Status: lives with family Current/Historical Medications Scheduled Amlodipine Besylate (Amlodipine Besylate), 10 MG PO QPM Calcium Carbonate-Vitamin D W/ (Caltrate 600 Plus), 1 TAB PO BID Cholecalciferol (Vitamin D 400), 400 UNITS PO HS Lansoprazole (Prevacid Solutab), 30 MG PO QPM Levothyroxine Sodium (Levothyroxine Sodium), 100 MCG PO QAM Losartan Potassium (Cozaar), 100 MG PO QAM Scheduled PRN Diphenhydramine Hcl (Benadryl Allergy), 25 MG PO DAILY PRN for allergies Lorazepam (Lorazepam), 0.5 MG PO BID PRN for Anxiety Allergies Coded Allergies: Iodinated Diagnostic Agents (Verified Allergy, Severe, sob, 06/03/17) Azithromycin (Verified Allergy, Intermediate, RASH, 06/03/17) Levalbuterol Hydrochloride (Verified Allergy, Intermediate, CHEST PAIN, ) Minocycline (Verified Allergy, Intermediate, RASH, 06/03/17) Iodine (Verified Allergy, Mild, IV CONTRAST, 06/03/17) Cefaclor (Verified Allergy, Unknown, HIVES, 06/03/17) Erythromycin (Verified Allergy, Unknown, HIVES, 06/03/17) Nitrofurantoin (Verified Allergy, Unknown, 06/03/17) Phenazopyridine (Verified Allergy, Unknown, sob, 06/03/17) Sulfa Antibiotics (Verified Allergy, Unknown, HIVES, 06/03/17) Levofloxacin (Verified Adverse Reaction, Intermediate, ABDOMINAL PAIN, 06/03/17) Morphine (Verified Adverse Reaction, Intermediate, EXCESSIVE VOMITING, 06/03/17) Pt. states excessive vomiting with this medication Physical Exam Vital Signs Date Time Temp Pulse Resp B/P (MAP) Pulse Ox O2 Delivery O2 Flow Rate FiO2 06/03/17 22:57 145/71 06/03/17 22:20 68 16 149/81 98 Room Air 06/03/17 20:29 36.7 81 16 149/80 98 Room Air Physical Exam GENERAL: Patient is a healthy-appearing well-nourished female HEAD: Normocephalic atraumatic EYES: Ocular movements intact pupils equal and react to light OROPHARYNX mucous membranes are moist no exudates present no erythema or edema present NECK: Supple no nuchal rigidity CHEST: Good equal expansion LUNGS: Clear and equal to auscultation CARDIAC: Normal S1 and S2 ABDOMEN: Soft diffuse tenderness no guarding BACK: No CVA tenderness EXTREMITIES: No pain upon palpation normal muscle strength in all groups no clubbing cyanosis or edema NEURO: Patient is following commands and answering questions appropriately. Alert and oriented x3 Cranial Nerves 2-12 grossly intact Medical Decision & Procedures ER Provider Diagnostic Interpretation: Radiology results as stated below per my review and radiologist interpretation: CT SCAN OF THE ABDOMEN AND PELVIS WITHOUT IV CONTRAST CLINICAL HISTORY: Generalized abdominal pain. COMPARISON STUDY: Abdominal CT dated 04/25/2017. TECHNIQUE: CT scan of the abdomen and pelvis is performed from the lung bases to the proximal femora. Images are reviewed in the axial, sagittal, and coronal planes. IV contrast was not administered for this examination as per the referring clinician. Note that the examination was performed in suboptimal fashion without oral and IV contrast. A dose lowering technique was utilized adhering to the principles of ALARA. CT DOSE: 533.20 mGy.cm FINDINGS: Lung bases: The heart is normal in size and without pericardial effusion. The lung bases are clear. Liver: The unenhanced liver is normal in size, contour, and attenuation. There are numerous hepatic cysts. The largest is located in the right lobe and measures 3.6 cm. There is no intrahepatic biliary ductal dilatation. Gallbladder: Surgically absent noting clips in the gallbladder fossa. Spleen: Normal in size and attenuation. There are calcified splenic granulomas. Pancreas: A 1.4 cm IPMN is again suggested in the pancreatic head. The unenhanced pancreas is atrophic and otherwise grossly unremarkable. Adrenal glands: Unremarkable. Kidneys: The unenhanced kidneys demonstrate cortical atrophy and are without hydronephrosis. There are no renal calculi identified. There is no evidence of contour deforming renal mass lesion. Parapelvic cysts are suggested on the left. Abdominal vasculature: The abdominal aorta is normal in course and caliber noting moderate atherosclerotic calcification. Bowel: No bowel obstruction is seen. There is moderate to advanced colonic diverticulosis. Mild wall thickening and faint pericolonic infiltration is seen adjacent to the sigmoid colon on axial image #285 suggesting mild acute diverticulitis. There is no evidence of abscess. The appendix is not identified and reported surgically absent. Peritoneum: There is no intraperitoneal free air or abdominal ascites. Lymphadenopathy: None. 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 This is similar to prior studies. The bladder is otherwise normal as imaged. The uterus and adnexa are normal appearance . There is evidence of previous right inguinal herniorrhaphy. 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 Skeletal structures: The skeletal structures are osteopenic. There are bilateral pars defects of L5. Mild lumbosacral spondylosis is observed. No lytic or blastic lesions are seen. IMPRESSION: 1. Suboptimal examination without oral and IV contrast. 2. Findings are consistent with mild acute diverticulitis of the sigmoid colon. There is no intraperitoneal free air or evidence of abscess on this unenhanced examination. If not recently performed, consider follow-up with colonoscopy following appropriate treatment. 3. A fistula is again questioned between the dome of the bladder and a loop of adjacent small bowel. This is similar to prior studies. 4. A rectovaginal fistula is again questioned. 5. Additional findings as above. Electronically signed by: Jeremiah Estrella M.D. 06/03/2017 9:58 PM Dictated Date/Time: 06/03/2017 9:50 PM Laboratory Results 06/03/17 21:20 Red Blood Count 4.91, Mean Corpuscular Volume 81.9, Mean Corpuscular Hemoglobin 28.1, Mean Corpuscular Hemoglobin Concent 34.3, Mean Platelet Volume 10.4, Neutrophils (%) (Auto) 60.5, Lymphocytes (%) (Auto) 30.0, Monocytes (%) (Auto) 7.0, Eosinophils (%) (Auto) 2.0, Basophils (%) (Auto) 0.3, Neutrophils # (Auto) 5.25, Lymphocytes # (Auto) 2.61, Monocytes # (Auto) 0.61, Eosinophils # (Auto) 0.17, Basophils # (Auto) 0.03 06/03/17 21:20 Test 06/03/17 21:20 White Blood Count 8.69 K/uL (4.8-10.8) Red Blood Count 4.91 M/uL (4.2-5.4) Hemoglobin 13.8 g/dL (12.0-16.0) Hematocrit 40.2 % (37-47) Mean Corpuscular Volume 81.9 fL (80-100) Mean Corpuscular Hemoglobin 28.1 pg (25-34) Mean Corpuscular Hemoglobin Concent 34.3 g/dl (32-36) Platelet Count 251 K/uL (130-400) Mean Platelet Volume 10.4 fL (7.4-10.4) Neutrophils (%) (Auto) 60.5 % Lymphocytes (%) (Auto) 30.0 % Monocytes (%) (Auto) 7.0 % Eosinophils (%) (Auto) 2.0 % Basophils (%) (Auto) 0.3 % Neutrophils # (Auto) 5.25 K/uL (1.4-6.5) Lymphocytes # (Auto) 2.61 K/uL (1.2-3.4) Monocytes # (Auto) 0.61 K/uL (0.11-0.59) Eosinophils # (Auto) 0.17 K/uL (0-0.5) Basophils # (Auto) 0.03 K/uL (0-0.2) RDW Standard Deviation 42.1 fL (36.4-46.3) RDW Coefficient of Variation 14.1 % (11.5-14.5) Immature Granulocyte % (Auto) 0.2 % Immature Granulocyte # (Auto) 0.02 K/uL (0.00-0.02) Urine Color YELLOW Urine Appearance CLEAR (CLEAR) Urine pH 6.0 (4.5-7.5) Urine Specific [place] 1.013 (1.000-1.030) Urine Protein NEG (NEG) Urine Glucose (UA) NEG (NEG) Urine Ketones NEG (NEG) Urine Occult Blood NEG (NEG) Urine Nitrite NEG (NEG) Urine Bilirubin NEG (NEG) Urine Urobilinogen NEG (NEG) Urine Leukocyte Esterase MODERATE (NEG) Urine WBC (Auto) 10-30 /hpf (0-5) Urine RBC (Auto) 0-4 /hpf (0-4) Urine Hyaline Casts (Auto) 1-5 /lpf (0-5) Urine Epithelial Cells (Auto) 20-30 /lpf (0-5) Urine Bacteria (Auto) NEG (NEG) Anion Gap 8.0 mmol/L (3-11) Est Creatinine Clear Calc Drug Dose 63.1 ml/min Estimated GFR () 90.8 Estimated GFR (Non- 78.4 BUN/Creatinine Ratio 15.3 (10-20) Calcium Level 9.5 mg/dl (8.5-10.1) Total Bilirubin 0.4 mg/dl (0.2-1) Direct Bilirubin < 0.1 mg/dl (0-0.2) Aspartate Amino Transf (AST/SGOT) 10 U/L (15-37) Alanine Aminotransferase (ALT/SGPT) 13 U/L (12-78) Alkaline Phosphatase 98 U/L (45-117) Total Protein 7.5 gm/dl (6.4-8.2) Albumin 3.6 gm/dl (3.4-5.0) Lipase 143 U/L (73-393) Labs reviewed by ED physician. Medications Administered Medications (Trade) Dose Ordered Sig/Barb Route Start Time Stop Time Status Last Admin Dose Admin Hydromorphone HCl (Dilaudid Inj) 1 mg NOW STAT IV 06/03/17 21:17 06/03/17 21:19 DC 06/03/17 21:33 1 MG Ondansetron HCl (Zofran Inj) 4 mg NOW STAT IV 06/03/17 21:17 06/03/17 21:19 DC 06/03/17 21:32 4 MG Amoxicillin/ Clavulanate Potassium (Augmentin Susp) 10 ml NOW STAT PO 06/03/17 22:17 06/03/17 22:19 DC 06/03/17 22:38 10 ML Fluconazole (Diflucan Tab) 200 mg NOW STAT PO 06/03/17 22:26 06/03/17 22:27 DC 06/03/17 22:38 200 MG Metoclopramide HCl (Reglan Inj) 10 mg NOW STAT IV 06/03/17 22:44 06/03/17 22:45 DC 06/03/17 22:53 10 MG ED Course 2109: Past medical records reviewed. The patient was evaluated in room A10. A complete history and physical examination was performed. 2116: Ordered Zofran Inj 4 mg IV, Dilaudid Inj 1 mg IV 5: Ordered Augmentin Tab 875 mg PO 7: Ordered Augmentin Susp 10 ml PO 2226: Ordered Diflucan Tab 200 mg PO 2231: Repeat examine showed no tenderness to the abdomen. 2235: Upon reexamination the patient is resting. I discussed results and treatment plan with the patient. She verbalizes agreement and understanding. The patient is ready for discharge. 2245: Upon discharge, the patient vomited all of her medications. 2251: Upon reexamination the patient is resting. I discussed results and treatment plan with the patient. She verbalizes agreement and understanding. I spoke with Dr. Jasso from the [facility]. The patient will be evaluated for further management. Medical Decision Differential diagnosis: Etiologies such as appendicitis, diverticulitis, PUD, biliary pathology, UTI, pancreatitis, obstruction, mesenteric ischemia, aortic pathology, infections, inflammatory bowel disease, renal colic, as well as others were entertained. This is a 71-year-old female who presents emergency department complaining of abdominal pain. Serial abdominal examinations were performed on the patient in the emergency department and at no time did the patient exhibited a surgical abdomen. The patient has a long history of diverticulitis and is scheduled for surgery next month at [facility]. In the emergency department the patient was given 1 mg of Dilaudid as well as Zofran. Repeat examination revealed improvement patient's symptoms. The patient was sent for CAT scan of the abdomen and pelvis which was concerning for diverticulitis. I reviewed the patient's CAT scan with both the patient as well as family. She was started on Augmentin the emergency department however the patient vomited up her medications and was unable to keep them down. For this reason I did discuss the case with the hospitalist service who agreed to admit the patient. Patient family were in agreement with the treatment plan. Medication Reconcilliation Current Medication List: was personally reviewed by me Blood Pressure Screening Patient's blood pressure: Elevated blood pressure Blood pressure disposition: Elevated BP felt to be situational Consults Time Called: 2249 Consulting Physician: Dr. Jasso - david Hospitalist Returned Call: 2250 I discussed the patient's case with Dr. Jasso, she has agreed to evaluate the patient for further management and care. Impression Primary Impression: Diverticulitis Scribe Attestation The scribe's documentation has been prepared under my direction and personally reviewed by me in its entirety. I confirm that the note above accurately reflects all work, treatment, procedures, and medical decision making performed by me. Departure Information Dispostion Home / Self-Care Referrals Sophie Mazariegos M.D. (PCP) Forms Call Back Authorization, HOME CARE DOCUMENTATION FORM, IMPORTANT VISIT INFORMATION, School Instructions, Work Instructions Patient Instructions Diet Clear Liquid Dc, Diverticulitis Dc, My [facility] Additional Instructions Clear liquid diet next 48 hours You received narcotic or benzodiazepene medication while in the emergency room today. This is an addictive medication that may cause drowziness as well as constipation. Do not drive, operate heavy machinery, or drink alcohol under the influence of this medication. You have been examined and treated today on an emergency basis only. This is not a substitute for, or an effort to provide, complete comprehensive medical care. It is impossible to recognize and treat all injuries or illnesses in a single emergency department visit. It is therefore important that you follow up closely with Dr Mazariegos. Call as soon as possible for an appointment. Thank you for your time and consideration. I look forward to speaking with you again soon. Please don't hesitate to call us if you have any questions. Problem Qualifiers Primary Impression: Diverticulitis Diverticulitis site: unspecified part of intestinal tract Diverticulitis bleeding: unspecified bleeding status Diverticulitis complication: without perforation or abscess Qualified Codes: K57.92 - Diverticulitis of intestine, part unspecified, without perforation or abscess without bleeding
[2017-06-03 21:33] LABS: BASO % 0.3 %; BASO ABS # 0.03 K/uL (0-0.2); COMPLETE YES; HEMATOCRIT 40.2 % (37-47); IG% 0.2 %; LYMPH ABS # 2.61 K/uL (1.2-3.4); MEAN CELL VOLUME 81.9 fL (80-100); MEAN CORPUSCULAR HEMOGLOBIN 28.1 pg (25-34); MEAN CORPUSCULAR HGB CONC 34.3 g/dl (32-36); MEAN PLATELET VOLUME 10.4 fL (7.4-10.4); NEUT % 60.5 %; PLATELET COUNT 251 K/uL (130-400); RED BLOOD COUNT 4.91 M/uL (4.2-5.4); WHITE BLOOD COUNT 8.69 K/uL (4.8-10.8)
[2017-06-03 21:35] LABS: URINE APPEARANCE CLEAR (CLEAR); URINE BILIRUBIN NEG (NEG); URINE COLOR YELLOW; URINE EPITHELIAL CELL AUTO 20-30 /lpf (0-5); URINE NITRITE NEG (NEG); URINE SPECIFIC GRAVITY 1.013 (1.000-1.030); UROBILINOGEN NEG (NEG)
[2017-06-03 21:37] LABS: MANUAL MICROSCOPIC REQUIRED? NO; REVIEW REQ? NO
[2017-06-03 21:54] LABS: ALT/SGPT 13 U/L (12-78); BLOOD UREA NITROGEN 12 mg/dl (7-18); BUN/CREATININE RATIO 15.3 (10-20); CALCIUM 9.5 mg/dl (8.5-10.1); CARBON DIOXIDE 25 mmol/L (21-32); CHLORIDE 106 mmol/L (98-107); CREATININE 0.76 mg/dl (0.60-1.20); GLUCOSE 98 mg/dl (70-99); POTASSIUM 3.3 mmol/L (3.5-5.1); SODIUM 139 mmol/L (136-145)
[2017-06-03 21:57] LABS: ALKALINE PHOSPHATASE 98 U/L (45-117); AST/SGOT 10 U/L (15-37)
--- NOTE | 2017-06-03 21:59 | DIAGNOSTIC IMAGING REPORT ---
CT SCAN OF THE ABDOMEN AND PELVIS WITHOUT IV CONTRAST CLINICAL HISTORY: Generalized abdominal pain. COMPARISON STUDY: Abdominal CT dated 04/25/2017. TECHNIQUE: CT scan of the abdomen and pelvis is performed from the lung bases to the proximal femora. Images are reviewed in the axial, sagittal, and coronal planes. IV contrast was not administered for this examination as per the referring clinician. Note that the examination was performed in suboptimal fashion without oral and IV contrast. A dose lowering technique was utilized adhering to the principles of ALARA. CT DOSE: 533.20 mGy.cm FINDINGS: Lung bases: The heart is normal in size and without pericardial effusion. The lung bases are clear. Liver: The unenhanced liver is normal in size, contour, and attenuation. There are numerous hepatic cysts. The largest is located in the right lobe and measures 3.6 cm. There is no intrahepatic biliary ductal dilatation. Gallbladder: Surgically absent noting clips in the gallbladder fossa. Spleen: Normal in size and attenuation. There are calcified splenic granulomas. Pancreas: A 1.4 cm IPMN is again suggested in the pancreatic head. The unenhanced pancreas is atrophic and otherwise grossly unremarkable. Adrenal glands: Unremarkable. Kidneys: The unenhanced kidneys demonstrate cortical atrophy and are without hydronephrosis. There are no renal calculi identified. There is no evidence of contour deforming renal mass lesion. Parapelvic cysts are suggested on the left. Abdominal vasculature: The abdominal aorta is normal in course and caliber noting moderate atherosclerotic calcification. Bowel: No bowel obstruction is seen. There is moderate to advanced colonic diverticulosis. Mild wall thickening and faint pericolonic infiltration is seen adjacent to the sigmoid colon on axial image #285 suggesting mild acute diverticulitis. There is no evidence of abscess. The appendix is not identified and reported surgically absent. Peritoneum: There is no intraperitoneal free air or abdominal ascites. Lymphadenopathy: None. 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 This is similar to prior studies. The bladder is otherwise normal as imaged. The uterus and adnexa are normal appearance . There is evidence of previous right inguinal herniorrhaphy. 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 Skeletal structures: The skeletal structures are osteopenic. There are bilateral pars defects of L5. Mild lumbosacral spondylosis is observed. No lytic or blastic lesions are seen. IMPRESSION: 1. Suboptimal examination without oral and IV contrast. 2. Findings are consistent with mild acute diverticulitis of the sigmoid colon. There is no intraperitoneal free air or evidence of abscess on this unenhanced examination. If not recently performed, consider follow-up with colonoscopy following appropriate treatment. 3. A fistula is again questioned between the dome of the bladder and a loop of adjacent small bowel. This is similar to prior studies. 4. A rectovaginal fistula is again questioned. 5. Additional findings as above. Electronically signed by: Jeremiah Estrella M.D. 06/03/2017 9:58 PM Dictated Date/Time: 06/03/2017 9:50 PM
[2017-06-03] MEDS ORDERED: AMOXICILLIN/CLAVULANATE TAB 875 MG TAB PO ONE (22:15)
[2017-06-03] MEDS ORDERED: AMOXICILLIN/CLAVULANATE SUSP 400 MG/5 ML PO STA (22:17)
[2017-06-03] MEDS ORDERED: AGMUDL4005 PO (22:25)
[2017-06-03] MEDS ORDERED: FLUC200T PO (22:25)
[2017-06-03] MEDS ORDERED: FLUCONAZOLE 100 MG TAB PO STA (22:26)
[2017-06-03] MEDS ORDERED: METOCLOPRAMIDE HCL INJ 5 MG/ML 2 ML VIAL IV STA (22:44)
[2017-06-03 23:56] VITALS: BP 128/78; PULSE 64; TEMP 36.3; O2SAT 96
[2017-06-04] MEDS ORDERED: POLYETHYLENE (MIRALAX) 17 GM PACK PO PRN (01:30)
[2017-06-04] MEDS ORDERED: ACETAMINOPHEN 325 MG TAB PO PRN (01:30)
[2017-06-04] MEDS ORDERED: CALCTAB7 PO (01:31)
[2017-06-04] MEDS ORDERED: PIPERACILL/TAZOBAC CONSULT ACTIVE PRN (01:42)
[2017-06-04] MEDS ORDERED: POTASSIUM CHLORIDE 20 MEQ TABCR PO STA ×2 (01:44→09:17)
[2017-06-04] MEDS ORDERED: LORAZEPAM 0.5 MG TAB PO PRN (01:45)
--- NOTE | 2017-06-04 01:45 | History and Physical ---
History & Physical Date & Time of Service: Jun 04, 2017 at 01:33 Chief Complaint: Acute Diverticulitis Primary Care Physician: Sophie Mazariegos M.D. History of Present Illness Source: patient, clinic records, hospital records 71 yo F reports to the ER for 1 week history of lower abdominal pain and nausea. She has a history of acute diverticulitis for which she was recently admitted in April. At that time she was found to have a suspected fistula and was sent home on Cipro/Flagyl until her planned surgery in [place] on Jul 07, however, she developed thrush and stopped these antibiotics approximately 3 weeks ago. She notified her surgeon of this who instructed her not to go back on these same antibiotics. She just finished a course of Diflucan for the thrush which is resolved. She was tolerating PO and was about to be discharged from the ER when she vomited and was admitted for intolerance of PO 2/2 the diverticulitis. On exam, her vitals are normal, she is not in distress and her abdomen is soft, non-distended with mild TTP worse on the RLQ. She denies any fevers, chills GI bleeding, changes in her stools, SOB, CP, BILL, UTI symptoms, or back pain. She was not eating like normal with the nausea over the past week and reports a 20 lb weight loss over the past 3 months. During this time she was hospitalized for this issue at least twice. Past Medical/Surgical History Medical Problems: (1) Acute diverticulitis Status: Chronic (2) Suarez esophagus Status: Chronic (3) Diarrhea Status: Resolved (4) Diverticulitis Permanent Comment: multiple episodes since 2014 one episode with abscess requiring drainage; no other surgeries follows with [facility] Rectal Surgery Status: Chronic (5) GERD (gastroesophageal reflux disease) Status: Chronic (6) HLD (hyperlipidemia) Status: Chronic (7) HTN (hypertension) Status: Chronic (8) Hypothyroidism Status: Chronic (9) Intra-abdominal abscess Status: Resolved (10) Intraductal carcinoma of left breast Permanent Comment: Abnormal left breast mammogram Status post stereotactic biopsy 11/14/2015 revealing DCIS grade 1 Estrogen receptor positive and progesterone receptor positive Status post needle localization lumpectomy 12/20/2015 Stage pTis pNX Status post completion of radiation therapy 03/01/2016 received 3850 cGy utilizing accelerated partial breast irradiation. Status: Chronic Surgical Problems: (1) H/O foot surgery Status: Chronic (2) H/O inguinal hernia repair Status: Chronic (3) History of appendectomy Status: Chronic (4) Hx of tonsillectomy Status: Chronic (5) S/P cholecystectomy Status: Chronic (6) S/P left knee arthroscopy Status: Chronic (7) S/P right knee arthroscopy Status: Chronic (8) S/P wrist surgery Permanent Comment: left Status: Chronic Family History FH: breast cancer MOTHER FH: lung cancer FATHER Social History Smoking Status: Never Smoker Smokeless Tobacco Use: No Alcohol Use: none Drug Use: none Marital Status: Housing status: lives with significant other 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[id number]) Immunizations History of Influenza Vaccine: Yes Influenza Vaccine Date: Aug 07, 2016 History of Tetanus Vaccine?: Unknown History of Pneumococcal: Unknown History of Hepatitis B Vaccine: No Multi-Drug Resistant Organisms History of MDRO: No Allergies Coded Allergies: Iodinated Diagnostic Agents (Verified Allergy, Severe, sob, 06/03/17) Azithromycin (Verified Allergy, Intermediate, RASH, 06/03/17) Levalbuterol Hydrochloride (Verified Allergy, Intermediate, CHEST PAIN, ) Minocycline (Verified Allergy, Intermediate, RASH, 06/03/17) Iodine (Verified Allergy, Mild, IV CONTRAST, 06/03/17) Cefaclor (Verified Allergy, Unknown, HIVES, 06/03/17) Erythromycin (Verified Allergy, Unknown, HIVES, 06/03/17) Nitrofurantoin (Verified Allergy, Unknown, 06/03/17) Phenazopyridine (Verified Allergy, Unknown, sob, 06/03/17) Sulfa Antibiotics (Verified Allergy, Unknown, HIVES, 06/03/17) Levofloxacin (Verified Adverse Reaction, Intermediate, ABDOMINAL PAIN, 06/03/17) Morphine (Verified Adverse Reaction, Intermediate, EXCESSIVE VOMITING, 06/03/17) Pt. states excessive vomiting with this medication Home Medications Scheduled Amlodipine Besylate (Amlodipine Besylate), 10 MG PO QPM Calcium Carbonate-Vitamin D W/ (Caltrate 600 Plus), 1 TAB PO BID Cholecalciferol (Vitamin D 400), 400 UNITS PO HS Lansoprazole (Prevacid Solutab), 30 MG PO QPM Levothyroxine Sodium (Levothyroxine Sodium), 100 MCG PO QAM Losartan Potassium (Cozaar), 100 MG PO QAM Scheduled PRN Diphenhydramine Hcl (Benadryl Allergy), 25 MG PO DAILY PRN for allergies Lorazepam (Lorazepam), 0.5 MG PO BID PRN for Anxiety Review of Systems At least ten systems were reviewed and negative except as indicated in HPI above. Physical Exam Vital Signs Date Time Temp Pulse Resp B/P (MAP) Pulse Ox O2 Delivery O2 Flow Rate FiO2 06/03/17 23:56 36.3 64 16 128/78 96 Room Air 06/03/17 23:20 68 16 94 06/03/17 23:05 65 14 96 06/03/17 23:01 136/69 06/03/17 22:57 145/71 06/03/17 22:20 68 16 149/81 98 Room Air 06/03/17 20:29 36.7 81 16 149/80 98 Room Air General Appearance: WD/WN, no apparent distress Head: normocephalic, atraumatic Eyes: normal inspection, PERRL, sclerae normal ENT: hearing grossly normal, pharynx normal, + pertinent finding (slightly dry mucous membranes) Neck: supple, no adenopathy, no JVD, trachea midline Respiratory/Chest: lungs clear, normal breath sounds, no respiratory distress, no accessory muscle use Cardiovascular: regular rate, rhythm, no edema, no gallop, no JVD, no murmur, normal peripheral pulses Abdomen/GI: normal bowel sounds, soft, no organomegaly, + tenderness (RLQ>LLQ) Back: normal inspection, no CVA tenderness Extremities/Musculoskelatal: normal inspection, no pedal edema, normal range of motion, non-tender Neurologic/Psych: no motor/sensory deficits, alert, normal mood/affect, oriented x 3 Skin: normal color, warm/dry, no rash Diagnostics Laboratory Results 06/03/17 21:20 Red Blood Count 4.91, Mean Corpuscular Volume 81.9, Mean Corpuscular Hemoglobin 28.1, Mean Corpuscular Hemoglobin Concent 34.3, Mean Platelet Volume 10.4, Neutrophils (%) (Auto) 60.5, Lymphocytes (%) (Auto) 30.0, Monocytes (%) (Auto) 7.0, Eosinophils (%) (Auto) 2.0, Basophils (%) (Auto) 0.3, Neutrophils # (Auto) 5.25, Lymphocytes # (Auto) 2.61, Monocytes # (Auto) 0.61, Eosinophils # (Auto) 0.17, Basophils # (Auto) 0.03 06/03/17 21:20 Test 06/03/17 21:20 White Blood Count 8.69 K/uL (4.8-10.8) Red Blood Count 4.91 M/uL (4.2-5.4) Hemoglobin 13.8 g/dL (12.0-16.0) Hematocrit 40.2 % (37-47) Mean Corpuscular Volume 81.9 fL (80-100) Mean Corpuscular Hemoglobin 28.1 pg (25-34) Mean Corpuscular Hemoglobin Concent 34.3 g/dl (32-36) Platelet Count 251 K/uL (130-400) Mean Platelet Volume 10.4 fL (7.4-10.4) Neutrophils (%) (Auto) 60.5 % Lymphocytes (%) (Auto) 30.0 % Monocytes (%) (Auto) 7.0 % Eosinophils (%) (Auto) 2.0 % Basophils (%) (Auto) 0.3 % Neutrophils # (Auto) 5.25 K/uL (1.4-6.5) Lymphocytes # (Auto) 2.61 K/uL (1.2-3.4) Monocytes # (Auto) 0.61 K/uL (0.11-0.59) Eosinophils # (Auto) 0.17 K/uL (0-0.5) Basophils # (Auto) 0.03 K/uL (0-0.2) RDW Standard Deviation 42.1 fL (36.4-46.3) RDW Coefficient of Variation 14.1 % (11.5-14.5) Immature Granulocyte % (Auto) 0.2 % Immature Granulocyte # (Auto) 0.02 K/uL (0.00-0.02) Urine Color YELLOW Urine Appearance CLEAR (CLEAR) Urine pH 6.0 (4.5-7.5) Urine Specific [place] 1.013 (1.000-1.030) Urine Protein NEG (NEG) Urine Glucose (UA) NEG (NEG) Urine Ketones NEG (NEG) Urine Occult Blood NEG (NEG) Urine Nitrite NEG (NEG) Urine Bilirubin NEG (NEG) Urine Urobilinogen NEG (NEG) Urine Leukocyte Esterase MODERATE (NEG) Urine WBC (Auto) 10-30 /hpf (0-5) Urine RBC (Auto) 0-4 /hpf (0-4) Urine Hyaline Casts (Auto) 1-5 /lpf (0-5) Urine Epithelial Cells (Auto) 20-30 /lpf (0-5) Urine Bacteria (Auto) NEG (NEG) Anion Gap 8.0 mmol/L (3-11) Est Creatinine Clear Calc Drug Dose 63.1 ml/min Estimated GFR () 90.8 Estimated GFR (Non- 78.4 BUN/Creatinine Ratio 15.3 (10-20) Calcium Level 9.5 mg/dl (8.5-10.1) Total Bilirubin 0.4 mg/dl (0.2-1) Direct Bilirubin < 0.1 mg/dl (0-0.2) Aspartate Amino Transf (AST/SGOT) 10 U/L (15-37) Alanine Aminotransferase (ALT/SGPT) 13 U/L (12-78) Alkaline Phosphatase 98 U/L (45-117) Total Protein 7.5 gm/dl (6.4-8.2) Albumin 3.6 gm/dl (3.4-5.0) Lipase 143 U/L (73-393) Results Past 24 Hours Test 06/03/17 21:20 Range/Units White Blood Count 8.69 4.8-10.8 K/uL Red Blood Count 4.91 4.2-5.4 M/uL Hemoglobin 13.8 12.0-16.0 g/dL Hematocrit 40.2 37-47 % Mean Corpuscular Volume 81.9 80-100 fL Mean Corpuscular Hemoglobin 28.1 25-34 pg Mean Corpuscular Hemoglobin Concent 34.3 32-36 g/dl Platelet Count 251 130-400 K/uL Mean Platelet Volume 10.4 7.4-10.4 fL Neutrophils (%) (Auto) 60.5 % Lymphocytes (%) (Auto) 30.0 % Monocytes (%) (Auto) 7.0 % Eosinophils (%) (Auto) 2.0 % Basophils (%) (Auto) 0.3 % Neutrophils # (Auto) 5.25 1.4-6.5 K/uL Lymphocytes # (Auto) 2.61 1.2-3.4 K/uL Monocytes # (Auto) 0.61 0.11-0.59 K/uL Eosinophils # (Auto) 0.17 0-0.5 K/uL Basophils # (Auto) 0.03 0-0.2 K/uL RDW Standard Deviation 42.1 36.4-46.3 fL RDW Coefficient of Variation 14.1 11.5-14.5 % Immature Granulocyte % (Auto) 0.2 % Immature Granulocyte # (Auto) 0.02 0.00-0.02 K/uL Urine Color YELLOW Urine Appearance CLEAR CLEAR Urine pH 6.0 4.5-7.5 Urine Specific [place] 1.013 1.000-1.030 Urine Protein NEG NEG Urine Glucose (UA) NEG NEG Urine Ketones NEG NEG Urine Occult Blood NEG NEG Urine Nitrite NEG NEG Urine Bilirubin NEG NEG Urine Urobilinogen NEG NEG Urine Leukocyte Esterase MODERATE NEG Urine WBC (Auto) 10-30 0-5 /hpf Urine RBC (Auto) 0-4 0-4 /hpf Urine Hyaline Casts (Auto) 1-5 0-5 /lpf Urine Epithelial Cells (Auto) 20-30 0-5 /lpf Urine Bacteria (Auto) NEG NEG Sodium Level 139 136-145 mmol/L Potassium Level 3.3 3.5-5.1 mmol/L Chloride Level 106 98-107 mmol/L Carbon Dioxide Level 25 21-32 mmol/L Anion Gap 8.0 3-11 mmol/L Blood Urea Nitrogen 12 7-18 mg/dl Creatinine 0.76 0.60-1.20 mg/dl Est Creatinine Clear Calc Drug Dose 63.1 ml/min Estimated GFR () 90.8 Estimated GFR (Non- 78.4 BUN/Creatinine Ratio 15.3 10-20 Random Glucose 98 70-99 mg/dl Calcium Level 9.5 8.5-10.1 mg/dl Total Bilirubin 0.4 0.2-1 mg/dl Direct Bilirubin < 0.1 0-0.2 mg/dl Aspartate Amino Transf (AST/SGOT) 10 15-37 U/L Alanine Aminotransferase (ALT/SGPT) 13 12-78 U/L Alkaline Phosphatase 98 45-117 U/L Total Protein 7.5 6.4-8.2 gm/dl Albumin 3.6 3.4-5.0 gm/dl Lipase 143 73-393 U/L Diagnostic Radiology CT SCAN OF THE ABDOMEN AND PELVIS WITHOUT IV CONTRAST CLINICAL HISTORY: Generalized abdominal pain. COMPARISON STUDY: Abdominal CT dated 04/25/2017. TECHNIQUE: CT scan of the abdomen and pelvis is performed from the lung bases to the proximal femora. Images are reviewed in the axial, sagittal, and coronal planes. IV contrast was not administered for this examination as per the referring clinician. Note that the examination was performed in suboptimal fashion without oral and IV contrast. A dose lowering technique was utilized adhering to the principles of ALARA. CT DOSE: 533.20 mGy.cm FINDINGS: Lung bases: The heart is normal in size and without pericardial effusion. The lung bases are clear. Liver: The unenhanced liver is normal in size, contour, and attenuation. There are numerous hepatic cysts. The largest is located in the right lobe and measures 3.6 cm. There is no intrahepatic biliary ductal dilatation. Gallbladder: Surgically absent noting clips in the gallbladder fossa. Spleen: Normal in size and attenuation. There are calcified splenic granulomas. Pancreas: A 1.4 cm IPMN is again suggested in the pancreatic head. The unenhanced pancreas is atrophic and otherwise grossly unremarkable. Adrenal glands: Unremarkable. Kidneys: The unenhanced kidneys demonstrate cortical atrophy and are without hydronephrosis. There are no renal calculi identified. There is no evidence of contour deforming renal mass lesion. Parapelvic cysts are suggested on the left. Abdominal vasculature: The abdominal aorta is normal in course and caliber noting moderate atherosclerotic calcification. Bowel: No bowel obstruction is seen. There is moderate to advanced colonic diverticulosis. Mild wall thickening and faint pericolonic infiltration is seen adjacent to the sigmoid colon on axial image #285 suggesting mild acute diverticulitis. There is no evidence of abscess. The appendix is not identified and reported surgically absent. Peritoneum: There is no intraperitoneal free air or abdominal ascites. Lymphadenopathy: None. 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 This is similar to prior studies. The bladder is otherwise normal as imaged. The uterus and adnexa are normal appearance . There is evidence of previous right inguinal herniorrhaphy. 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 Skeletal structures: The skeletal structures are osteopenic. There are bilateral pars defects of L5. Mild lumbosacral spondylosis is observed. No lytic or blastic lesions are seen. IMPRESSION: 1. Suboptimal examination without oral and IV contrast. 2. Findings are consistent with mild acute diverticulitis of the sigmoid colon. There is no intraperitoneal free air or evidence of abscess on this unenhanced examination. If not recently performed, consider follow-up with colonoscopy following appropriate treatment. 3. A fistula is again questioned between the dome of the bladder and a loop of adjacent small bowel. This is similar to prior studies. 4. A rectovaginal fistula is again questioned. 5. Additional findings as above. EKG SB 56, I RBBB. Impression Assessment and Plan 71 yo F with h/o recent diverticulitis on chronic antibiotics while awaiting her fistula repair surgery in Nov presents with worsening lower abdominal pain/ nausea x 1 week. 1. Diverticulitis-known need for fistula repair. Was discharged on chronic Cipro/Flagyl, however, patient developed thrush and has been off all abx for 3 weeks. She reports being instructed to not go back on Cipro/flagyl per her [place] surgeon. Began Zosyn IV until abdominal pain and clinical picture improves overall. Cont clears, Gen Surg was consulted. 2. HTN-controlled, cont amlodipine and Cozaar. 3. Hypothyroidism-cont Synthroid 100 daily 4. Suarez's esophagus-cont Prevacid. 5. Thrush-resolved. 6. Hypokalemia-replaced with oral supplementation. DVT prophy: Lovenox. Full Code Dispo-to med/surg [facility]ort[facility] Jasso [facility]/Surg Advanced Directives Existing Living Will: Yes Existing Power of Home Therapy Teacher: No Resuscitation Status FULL RESUSCITATION VTE Prophylaxis VTE Risk Assessment Done? Y/N: Yes Risk Level: Moderate Given or contraindicated: Enoxaparin (Lovenox)SQ
[2017-06-04] MEDS ORDERED: PIPERACILL/TAZOBAC IV 3.375 GM in DEXTROSE 5% 100ML IV ONE (02:00)
[2017-06-04] MEDS ORDERED: INFLUENZA VACCINE HIGH DOSE 65+ 0.5 ML SYR IM. ONE (03:15)
[2017-06-04] MEDS ORDERED: INFLUENZA ADMINISTRATION CHARGE ONE (03:15)
[2017-06-04] MEDS: LEVOTHYROXINE 100 MCG TAB PO SCH (06:08)
[2017-06-04] MEDS: PIPERACILL/TAZOBAC IV 3.375 GM in DEXTROSE 5% 100ML IV SCH ×3 (06:08→20:42)
[2017-06-04] MEDS ORDERED: LEVOTHYROXINE 100 MCG TAB PO SCH (06:30)
[2017-06-04 07:09] LABS: PROTHROMBIN TIME (PATIENT) 10.3 SECONDS (9.0-12.0)
[2017-06-04 07:41] LABS: MAGNESIUM 2.1 mg/dl (1.8-2.4); THYROID STIMULATING HORMONE 0.239 uIu/ml (0.300-4.500)
[2017-06-04 08:15] VITALS: BP 136/78; PULSE 66; TEMP 36.7; O2SAT 96
--- NOTE | 2017-06-04 08:44 | Medical Consult ---
Consultation Date of Consultation: Jun 04, 2017. Attending Physician: Marianna Douglass M.D. Reason for Consultation: Acute Diverticulitis. History of Present Illness Ms. Quinn is a 71-year-old female with a past medical history significant for hypertension, hyperlipidemia, hypothyroidism, GERD, Suarez Esophagus, and multiple episodes of diverticulitis (fistula) resulting in 2 hospital stays in April. Patient reports that after last hospital stay on April 25, 2017 patient was sent home on outpatient Cipro and Flagyl. She states that she developed thrush from the antibiotics and was forced to stop them approximately 3 weeks ago. She states that her abdominal pain returned approximately 1 week ago. She states that the pain was located across the lower abdomen. She reports that the pain continued to increase, causing her to present to the ED. Patient was referred to [place] after seeing Dr. Moses in clinic and has upcoming surgery scheduled in [place] on Jul 07. Past Medical/Surgical History Medical Problems: (1) C. difficile colitis Status: Acute (2) C. difficile diarrhea Status: Acute (3) Costochondritis Status: Acute (4) Dehydration Status: Acute (5) Diverticulitis Permanent Comment: multiple episodes since 2014 one episode with abscess requiring drainage; no other surgeries follows with [facility] Status: Chronic (6) Dysuria Status: Acute (7) Left shoulder pain Status: Acute (8) Right lower quadrant abdominal pain Status: Acute (9) RUQ pain Status: Acute (10) UTI (urinary tract infection) Status: Acute Family History FH: breast cancer MOTHER FH: lung cancer FATHER Social History Smoking Status: Never Smoker Smokeless Tobacco Use: No Alcohol Use: none Drug Use: none Marital Status: Housing Status: lives with family 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[employer]) Allergies Coded Allergies: Iodinated Diagnostic Agents (Verified Allergy, Severe, sob, 06/03/17) Azithromycin (Verified Allergy, Intermediate, RASH, 06/03/17) Levalbuterol Hydrochloride (Verified Allergy, Intermediate, CHEST PAIN, ) Minocycline (Verified Allergy, Intermediate, RASH, 06/03/17) Iodine (Verified Allergy, Mild, IV CONTRAST, 06/03/17) Cefaclor (Verified Allergy, Unknown, HIVES, 06/03/17) Erythromycin (Verified Allergy, Unknown, HIVES, 06/03/17) Nitrofurantoin (Verified Allergy, Unknown, 06/03/17) Phenazopyridine (Verified Allergy, Unknown, sob, 06/03/17) Sulfa Antibiotics (Verified Allergy, Unknown, HIVES, 06/03/17) Levofloxacin (Verified Adverse Reaction, Intermediate, ABDOMINAL PAIN, 06/03/17) Morphine (Verified Adverse Reaction, Intermediate, EXCESSIVE VOMITING, 06/03/17) Pt. states excessive vomiting with this medication Current Inpatient Medications Current Inpatient Medications Medications (Trade) Dose Ordered Sig/Barb Route Start Time Stop Time Status Last Admin Dose Admin Acetaminophen (Tylenol Tab) 650 mg Q4H PRN PO 06/04/17 01:30 07/04/17 01:29 Polyethylene (Miralax Powder Packet) 17 gm DAILY PRN PO 06/04/17 01:30 07/04/17 01:29 Ondansetron HCl (Zofran Inj) 4 mg Q6H PRN IV 06/04/17 01:30 07/04/17 01:29 Piperacillin Sod/ Tazobactam Sod (Consult) 1 ea DAILY PRN N/A 06/04/17 01:42 07/04/17 01:41 Amlodipine Besylate (Norvasc Tab) 10 mg QPM PO 06/04/17 21:00 07/04/17 20:59 Calcium/Vitamin D (Caltrate Plus Tab) 1 tab BID PO 06/04/17 09:00 07/04/17 08:59 Lansoprazole (Prevacid Solutab) 30 mg QPM PO 06/04/17 21:00 07/04/17 20:59 Lorazepam (Ativan Tab) 0.5 mg BID PRN PO 06/04/17 01:45 07/04/17 01:44 Losartan Potassium (coZAAR TAB) 100 mg QAM PO 06/04/17 09:00 07/04/17 08:59 Cholecalciferol (Vitamin D Tab) 400 inter.unit QAM PO 06/04/17 09:00 07/04/17 08:59 Diphenhydramine HCl (Benadryl Cap) 25 mg DAILY PRN PO 06/04/17 01:45 07/04/17 01:44 Levothyroxine Sodium (Synthroid Tab) 100 mcg DAILY@0600 PO 06/04/17 06:00 07/04/17 05:59 06/04/17 06:08 100 MCG Piperacillin Sod/ Tazobactam Sod 3.375 gm/Dextrose 115 ml @ 28.75 mls/ hr Q8H IV 06/04/17 06:00 06/14/17 05:59 06/04/17 06:08 28.75 MLS/HR Enoxaparin Sodium (Lovenox Inj) 40 mg DAILY SQ 06/04/17 09:00 07/04/17 08:59 Review of Systems Constitutional: No fever, No chills Abdomen: + pain (Patient reports pain in lower abdomen that is improving. ), No nausea, No vomiting Physical Exam Date Time Temp Pulse Resp B/P (MAP) Pulse Ox O2 Delivery O2 Flow Rate FiO2 06/04/17 08:15 36.7 66 20 136/78 (97) 96 Room Air 06/03/17 23:56 36.3 64 16 128/78 96 Room Air 06/03/17 23:20 68 16 94 06/03/17 23:05 65 14 96 06/03/17 23:01 136/69 06/03/17 22:57 145/71 06/03/17 22:20 68 16 149/81 98 Room Air 06/03/17 20:29 36.7 81 16 149/80 98 Room Air General Appearance: WD/WN, no apparent distress Abdomen/GI: soft, + pertinent finding (mild tenderness in lower abdomen. ) Laboratory Results Last 24 Hours Test 06/03/17 21:20 06/04/17 06:49 White Blood Count 8.69 K/uL Red Blood Count 4.91 M/uL Hemoglobin 13.8 g/dL Hematocrit 40.2 % Mean Corpuscular Volume 81.9 fL Mean Corpuscular Hemoglobin 28.1 pg Mean Corpuscular Hemoglobin Concent 34.3 g/dl Platelet Count 251 K/uL Mean Platelet Volume 10.4 fL Neutrophils (%) (Auto) 60.5 % Lymphocytes (%) (Auto) 30.0 % Monocytes (%) (Auto) 7.0 % Eosinophils (%) (Auto) 2.0 % Basophils (%) (Auto) 0.3 % Neutrophils # (Auto) 5.25 K/uL Lymphocytes # (Auto) 2.61 K/uL Monocytes # (Auto) 0.61 K/uL Eosinophils # (Auto) 0.17 K/uL Basophils # (Auto) 0.03 K/uL RDW Standard Deviation 42.1 fL RDW Coefficient of Variation 14.1 % Immature Granulocyte % (Auto) 0.2 % Immature Granulocyte # (Auto) 0.02 K/uL Urine Color YELLOW Urine Appearance CLEAR Urine pH 6.0 Urine Specific [place] 1.013 Urine Protein NEG Urine Glucose (UA) NEG Urine Ketones NEG Urine Occult Blood NEG Urine Nitrite NEG Urine Bilirubin NEG Urine Urobilinogen NEG Urine Leukocyte Esterase MODERATE Urine WBC (Auto) 10-30 /hpf Urine RBC (Auto) 0-4 /hpf Urine Hyaline Casts (Auto) 1-5 /lpf Urine Epithelial Cells (Auto) 20-30 /lpf Urine Bacteria (Auto) NEG Sodium Level 139 mmol/L Potassium Level 3.3 mmol/L Chloride Level 106 mmol/L Carbon Dioxide Level 25 mmol/L Anion Gap 8.0 mmol/L Blood Urea Nitrogen 12 mg/dl Creatinine 0.76 mg/dl Est Creatinine Clear Calc Drug Dose 63.1 ml/min Estimated GFR () 90.8 Estimated GFR (Non- 78.4 BUN/Creatinine Ratio 15.3 Random Glucose 98 mg/dl Calcium Level 9.5 mg/dl Total Bilirubin 0.4 mg/dl Direct Bilirubin < 0.1 mg/dl Aspartate Amino Transf (AST/SGOT) 10 U/L Alanine Aminotransferase (ALT/SGPT) 13 U/L Alkaline Phosphatase 98 U/L Total Protein 7.5 gm/dl Albumin 3.6 gm/dl Lipase 143 U/L Prothrombin Time 10.3 SECONDS Prothromb Time International Ratio 1.0 Magnesium Level 2.1 mg/dl Thyroid Stimulating Hormone (TSH) 0.239 uIu/ml Assessment & Plan Acute Diverticulitis with known fistula. Upcoming surgery in [place] on Jul.07 Abdominal pain improving. Continue IV abx. Currently on clear liquid diet. Will see how she tolerates. Will continue to follow closely.
[2017-06-04] MEDS ORDERED: NURSING VERBAL MED ORDER ONE (09:00)
[2017-06-04] MEDS ORDERED: AMOXICILLIN/CLAVULANATE TAB 875 MG TAB PO ONE (09:00)
[2017-06-04] MEDS: CHOLECALCIFEROL 400 INTER.UNIT TAB PO SCH (09:01)
[2017-06-04] MEDS: LOSARTAN POTASSIUM 50 MG TAB PO SCH (09:01)
[2017-06-04] MEDS: CALCIUM 600MG + VIT D 400 IU TAB PO SCH ×2 (09:01→20:43)
[2017-06-04] MEDS: ENOXAPARIN 40 MG/0.4 ML SYR SQ SCH (09:02)
[2017-06-04] MEDS ORDERED: HYDROmorphone INJ 0.5 MG/0.5 ML SYR IV ONE (09:26)
[2017-06-04] MEDS ORDERED: MICONAZOLE NITRATE POWDER 43 GM EXT PRN (09:30)
--- NOTE | 2017-06-04 10:12 | Surgery Progress Note ---
Surgery Progress Note Date of Service Jun 04, 2017. Subjective see consult by Winifred Rodriguez- pt adm with N/V, has had recent abd pain for weeks- Rt sided. 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 adjusting atbx. temp, wbc ok. Ct- no abscess or severe inflammation Objective Vital Signs: Date Time Temp Pulse Resp B/P (MAP) Pulse Ox O2 Delivery O2 Flow Rate FiO2 06/04/17 08:15 36.7 66 20 136/78 (97) 96 Room Air 06/03/17 23:56 36.3 64 16 128/78 96 Room Air 06/03/17 23:20 68 16 94 06/03/17 23:05 65 14 96 06/03/17 23:01 136/69 06/03/17 22:57 145/71 06/03/17 22:20 68 16 149/81 98 Room Air 06/03/17 20:29 36.7 81 16 149/80 98 Room Air Abdomen: + pertinent finding (abd- nl bs, soft, no peritoneal irritation) Laboratory Results: Results Past 24 Hours Test 06/03/17 21:20 06/04/17 06:49 Range/Units White Blood Count 8.69 4.8-10.8 K/uL Red Blood Count 4.91 4.2-5.4 M/uL Hemoglobin 13.8 12.0-16.0 g/dL Hematocrit 40.2 37-47 % Mean Corpuscular Volume 81.9 80-100 fL Mean Corpuscular Hemoglobin 28.1 25-34 pg Mean Corpuscular Hemoglobin Concent 34.3 32-36 g/dl Platelet Count 251 130-400 K/uL Mean Platelet Volume 10.4 7.4-10.4 fL Neutrophils (%) (Auto) 60.5 % Lymphocytes (%) (Auto) 30.0 % Monocytes (%) (Auto) 7.0 % Eosinophils (%) (Auto) 2.0 % Basophils (%) (Auto) 0.3 % Neutrophils # (Auto) 5.25 1.4-6.5 K/uL Lymphocytes # (Auto) 2.61 1.2-3.4 K/uL Monocytes # (Auto) 0.61 0.11-0.59 K/uL Eosinophils # (Auto) 0.17 0-0.5 K/uL Basophils # (Auto) 0.03 0-0.2 K/uL RDW Standard Deviation 42.1 36.4-46.3 fL RDW Coefficient of Variation 14.1 11.5-14.5 % Immature Granulocyte % (Auto) 0.2 % Immature Granulocyte # (Auto) 0.02 0.00-0.02 K/uL Urine Color YELLOW Urine Appearance CLEAR CLEAR Urine pH 6.0 4.5-7.5 Urine Specific [place] 1.013 1.000-1.030 Urine Protein NEG NEG Urine Glucose (UA) NEG NEG Urine Ketones NEG NEG Urine Occult Blood NEG NEG Urine Nitrite NEG NEG Urine Bilirubin NEG NEG Urine Urobilinogen NEG NEG Urine Leukocyte Esterase MODERATE NEG Urine WBC (Auto) 10-30 0-5 /hpf Urine RBC (Auto) 0-4 0-4 /hpf Urine Hyaline Casts (Auto) 1-5 0-5 /lpf Urine Epithelial Cells (Auto) 20-30 0-5 /lpf Urine Bacteria (Auto) NEG NEG Sodium Level 139 136-145 mmol/L Potassium Level 3.3 3.5-5.1 mmol/L Chloride Level 106 98-107 mmol/L Carbon Dioxide Level 25 21-32 mmol/L Anion Gap 8.0 3-11 mmol/L Blood Urea Nitrogen 12 7-18 mg/dl Creatinine 0.76 0.60-1.20 mg/dl Est Creatinine Clear Calc Drug Dose 63.1 ml/min Estimated GFR () 90.8 Estimated GFR (Non- 78.4 BUN/Creatinine Ratio 15.3 10-20 Random Glucose 98 70-99 mg/dl Calcium Level 9.5 8.5-10.1 mg/dl Total Bilirubin 0.4 0.2-1 mg/dl Direct Bilirubin < 0.1 0-0.2 mg/dl Aspartate Amino Transf (AST/SGOT) 10 15-37 U/L Alanine Aminotransferase (ALT/SGPT) 13 12-78 U/L Alkaline Phosphatase 98 45-117 U/L Total Protein 7.5 6.4-8.2 gm/dl Albumin 3.6 3.4-5.0 gm/dl Lipase 143 73-393 U/L Prothrombin Time 10.3 9.0-12.0 SECONDS Prothromb Time International Ratio 1.0 0.9-1.1 Magnesium Level 2.1 1.8-2.4 mg/dl Thyroid Stimulating Hormone (TSH) 0.239 0.300-4.500 uIu/ml Assessment & Plan 06/04/17- No urgent surgical intervention needed. Cont current atbx- could try Augmentin when ready for d/c. If acute surgical intervention needed will suggest transfer to [place], but very stable now.
[2017-06-04] MEDS: NSS + 20MEQ KCL 1000ML 1,000 ML IV SCH ×2 (10:57→20:42)
[2017-06-04] MEDS: ONDANSETRON INJ 2 MG/ML 2 ML VIAL IV PRN ×2 (11:00→17:00)
--- NOTE | 2017-06-04 13:56 | Progress Note ---
Internal Med Progress Note Date of Service: Jun 04, 2017. Provider Documentation: SUBJECTIVE: The patient was seen and examined Admitted with Acute Diverticulitis,no abscess and or perforation Pain is controlled woth Dilaudid OBJECTIVE: Vital Signs-as noted below Exam: General-No distress at rest Eyes-normal ENT-normal Neck-supple Lungs-Clear to auscultate bilaterally Heart-Regular Abdomen-Soft,tender RLQ ,no guarding and or rigidity Bowel sound present Extremities-No edema Neuro-AAOx3 Lab data as noted below. ASSESSMENT & PLAN: 71 yo F with h/o recent diverticulitis on chronic antibiotics while awaiting her fistula repair surgery in Nov presents with worsening lower abdominal pain/ nausea x 1 week. Acute Diverticulitis- Known need for fistula repair. Was discharged on chronic Cipro/Flagyl, however, patient developed thrush and has been off all abx for 3 weeks. Began Zosyn IV until abdominal pain and clinical picture improves overall. General Surgery consulted-Appreciate input NPO,IFV ,Antibiotic and Pain medication HTN-controlled, cont amlodipine and Cozaar. Hypothyroidism-cont Synthroid 100mcg daily Suarez's esophagus-cont Prevacid. Thrush-resolved. Can take oral Nystatin DVT prophy: Lovenox. Full Code Dispo-to med/surg Vital Signs: Date Time Temp Pulse Resp B/P (MAP) Pulse Ox O2 Delivery O2 Flow Rate FiO2 06/04/17 08:15 36.7 66 20 136/78 (97) 96 Room Air 06/03/17 23:56 36.3 64 16 128/78 96 Room Air 06/03/17 23:20 68 16 94 06/03/17 23:05 65 14 96 06/03/17 23:01 136/69 06/03/17 22:57 145/71 06/03/17 22:20 68 16 149/81 98 Room Air 06/03/17 20:29 36.7 81 16 149/80 98 Room Air Lab Results: Results Past 24 Hours Test 06/03/17 21:20 06/04/17 06:49 Range/Units White Blood Count 8.69 4.8-10.8 K/uL Red Blood Count 4.91 4.2-5.4 M/uL Hemoglobin 13.8 12.0-16.0 g/dL Hematocrit 40.2 37-47 % Mean Corpuscular Volume 81.9 80-100 fL Mean Corpuscular Hemoglobin 28.1 25-34 pg Mean Corpuscular Hemoglobin Concent 34.3 32-36 g/dl Platelet Count 251 130-400 K/uL Mean Platelet Volume 10.4 7.4-10.4 fL Neutrophils (%) (Auto) 60.5 % Lymphocytes (%) (Auto) 30.0 % Monocytes (%) (Auto) 7.0 % Eosinophils (%) (Auto) 2.0 % Basophils (%) (Auto) 0.3 % Neutrophils # (Auto) 5.25 1.4-6.5 K/uL Lymphocytes # (Auto) 2.61 1.2-3.4 K/uL Monocytes # (Auto) 0.61 0.11-0.59 K/uL Eosinophils # (Auto) 0.17 0-0.5 K/uL Basophils # (Auto) 0.03 0-0.2 K/uL RDW Standard Deviation 42.1 36.4-46.3 fL RDW Coefficient of Variation 14.1 11.5-14.5 % Immature Granulocyte % (Auto) 0.2 % Immature Granulocyte # (Auto) 0.02 0.00-0.02 K/uL Urine Color YELLOW Urine Appearance CLEAR CLEAR Urine pH 6.0 4.5-7.5 Urine Specific [place] 1.013 1.000-1.030 Urine Protein NEG NEG Urine Glucose (UA) NEG NEG Urine Ketones NEG NEG Urine Occult Blood NEG NEG Urine Nitrite NEG NEG Urine Bilirubin NEG NEG Urine Urobilinogen NEG NEG Urine Leukocyte Esterase MODERATE NEG Urine WBC (Auto) 10-30 0-5 /hpf Urine RBC (Auto) 0-4 0-4 /hpf Urine Hyaline Casts (Auto) 1-5 0-5 /lpf Urine Epithelial Cells (Auto) 20-30 0-5 /lpf Urine Bacteria (Auto) NEG NEG Sodium Level 139 136-145 mmol/L Potassium Level 3.3 3.5-5.1 mmol/L Chloride Level 106 98-107 mmol/L Carbon Dioxide Level 25 21-32 mmol/L Anion Gap 8.0 3-11 mmol/L Blood Urea Nitrogen 12 7-18 mg/dl Creatinine 0.76 0.60-1.20 mg/dl Est Creatinine Clear Calc Drug Dose 63.1 ml/min Estimated GFR () 90.8 Estimated GFR (Non- 78.4 BUN/Creatinine Ratio 15.3 10-20 Random Glucose 98 70-99 mg/dl Calcium Level 9.5 8.5-10.1 mg/dl Total Bilirubin 0.4 0.2-1 mg/dl Direct Bilirubin < 0.1 0-0.2 mg/dl Aspartate Amino Transf (AST/SGOT) 10 15-37 U/L Alanine Aminotransferase (ALT/SGPT) 13 12-78 U/L Alkaline Phosphatase 98 45-117 U/L Total Protein 7.5 6.4-8.2 gm/dl Albumin 3.6 3.4-5.0 gm/dl Lipase 143 73-393 U/L Prothrombin Time 10.3 9.0-12.0 SECONDS Prothromb Time International Ratio 1.0 0.9-1.1 Magnesium Level 2.1 1.8-2.4 mg/dl Thyroid Stimulating Hormone (TSH) 0.239 0.300-4.500 uIu/ml
[2017-06-04 15:15] VITALS: BP 156/81; PULSE 78; TEMP 36.3; O2SAT 97
[2017-06-04] MEDS: HYDROmorphone INJ 0.5 MG/0.5 ML SYR IV PRN (17:01)
[2017-06-04] MEDS: AMLODIPINE BESYLATE 5 MG TAB PO SCH (20:43)
[2017-06-04] MEDS: LANSOPRAZOLE SOLUTAB 30 MG PO SCH (20:43)
[2017-06-04 22:38] VITALS: BP 122/71; PULSE 66; TEMP 36.9; O2SAT 93
[2017-06-05] MEDS: LEVOTHYROXINE 100 MCG TAB PO SCH (06:02)
[2017-06-05] MEDS: NSS + 20MEQ KCL 1000ML 1,000 ML IV SCH ×2 (06:03→15:53)
[2017-06-05] MEDS: PIPERACILL/TAZOBAC IV 3.375 GM in DEXTROSE 5% 100ML IV SCH ×3 (06:03→21:07)
[2017-06-05 07:08] VITALS: BP 125/76; PULSE 69; TEMP 36.9; O2SAT 97
[2017-06-05 07:56] LABS: MEAN CELL VOLUME 83.5 fL (80-100); MEAN CORPUSCULAR HEMOGLOBIN 27.2 pg (25-34); MEAN CORPUSCULAR HGB CONC 32.6 g/dl (32-36); MEAN PLATELET VOLUME 10.6 fL (7.4-10.4); PLATELET COUNT 243 K/uL (130-400); RED BLOOD COUNT 4.67 M/uL (4.2-5.4); WHITE BLOOD COUNT 5.07 K/uL (4.8-10.8)
--- NOTE | 2017-06-05 08:15 | Clinical Documentation Query ---
CLINICAL DOCUMENTATION QUERY Dr. PLATA, In your clinical opinion is this patient being managed for: ( ) Mild protein-calorie malnutrition ( + ) Not Agree ( ) Other explanation of clinical findings (Please Explain) ( ) Unable to determine (Please Define) ( ) Need to Discuss The medical record reflects the following clinical findings, treatment, and risk factors. Clinical Indicators: 71 yo female presenting with diverticulitis with known fistula. Was recently treated with oral antibiotics and developed thrush which has been treated and resolved. Reported wt loss of 20 lb over the past 3 months and experiencing nausea with decreased oral intake over the past week. Review of historical weights showed wt loss of 12 lbs since February 10, 2017 (6.5%) Treatment: IV zosyn, CL diet, surgery consult, pending planned surgery, monitor I/O, IV fluids, prn zofran Risk Factors: diverticulitis, nausea, fistula Please clarify and document your clinical opinion in the progress notes and discharge summary. Terms such as "probable", "suspected", "likely", "questionable", "possible", or "still to be ruled out" are acceptable. IF IN AGREEMENT, YOU MUST DOCUMENT ABOVE DIAGNOSTIC STATEMENT IN DAILY PROGRESS NOTES AND DISCHARGE SUMMARY. This document is not part of the patient's record. Thank You, Tessy Carpio RN [phone]
[2017-06-05] MEDS: LOSARTAN POTASSIUM 50 MG TAB PO SCH (08:20)
[2017-06-05] MEDS: CHOLECALCIFEROL 400 INTER.UNIT TAB PO SCH (08:20)
[2017-06-05] MEDS: CALCIUM 600MG + VIT D 400 IU TAB PO SCH ×2 (08:20→21:01)
[2017-06-05] MEDS: ENOXAPARIN 40 MG/0.4 ML SYR SQ SCH (08:20)
[2017-06-05 08:24] LABS: CALCIUM 9.4 mg/dl (8.5-10.1); CREATININE 0.67 mg/dl (0.60-1.20); POTASSIUM 4.2 mmol/L (3.5-5.1)
--- NOTE | 2017-06-05 12:27 | Surgery Progress Note ---
Surgery Progress Note Date of Service Jun 05, 2017. Subjective afeb no acute changes Objective Vital Signs: Date Time Temp Pulse Resp B/P (MAP) Pulse Ox O2 Delivery O2 Flow Rate FiO2 06/05/17 10:56 Room Air 06/05/17 07:08 36.9 69 20 125/76 (92) 97 06/05/17 00:00 Room Air 06/04/17 22:38 36.9 66 18 122/71 (88) 93 Room Air 06/04/17 16:23 Room Air 06/04/17 15:15 36.3 78 20 156/81 (106) 97 Room Air Laboratory Results: Results Past 24 Hours Test 06/05/17 07:22 Range/Units White Blood Count 5.07 4.8-10.8 K/uL Red Blood Count 4.67 4.2-5.4 M/uL Hemoglobin 12.7 12.0-16.0 g/dL Hematocrit 39.0 37-47 % Mean Corpuscular Volume 83.5 80-100 fL Mean Corpuscular Hemoglobin 27.2 25-34 pg Mean Corpuscular Hemoglobin Concent 32.6 32-36 g/dl RDW Standard Deviation 43.5 36.4-46.3 fL RDW Coefficient of Variation 14.4 11.5-14.5 % Platelet Count 243 130-400 K/uL Mean Platelet Volume 10.6 7.4-10.4 fL Sodium Level 141 136-145 mmol/L Potassium Level 4.2 3.5-5.1 mmol/L Chloride Level 109 98-107 mmol/L Carbon Dioxide Level 24 21-32 mmol/L Anion Gap 8.0 3-11 mmol/L Blood Urea Nitrogen 5 7-18 mg/dl Creatinine 0.67 0.60-1.20 mg/dl Est Creatinine Clear Calc Drug Dose 71.6 ml/min Estimated GFR () 101.8 Estimated GFR (Non- 87.8 BUN/Creatinine Ratio 7.0 10-20 Random Glucose 86 70-99 mg/dl Calcium Level 9.4 8.5-10.1 mg/dl Assessment & Plan 06/05/17- overall stable, advancing diet- no plan for surgery here 06/04/17- No urgent surgical intervention needed. Cont current atbx- could try Augmentin when ready for d/c. If acute surgical intervention needed will suggest transfer to [place], but very stable now. 06/04/17- No urgent surgical intervention needed. Cont current atbx- could try Augmentin when ready for d/c. If acute surgical intervention needed will suggest transfer to [place], but very stable now.
[2017-06-05] MEDS: HYDROmorphone INJ 0.5 MG/0.5 ML SYR IV PRN ×2 (14:33→18:49)
[2017-06-05 14:51] VITALS: BP 148/79; PULSE 63; TEMP 36.4; O2SAT 95
--- NOTE | 2017-06-05 14:52 | Progress Note ---
Internal Med Progress Note Date of Service: Jun 05, 2017. Provider Documentation: SUBJECTIVE: The patient was seen and examined Admitted with Acute Diverticulitis,no abscess and or perforation Pain is controlled with Dilaudid Much better today Denies any symptoms except minimal pain in abdomen OBJECTIVE: Vital Signs-as noted below Exam: General-No distress at rest Eyes-normal ENT-normal Neck-supple Lungs-Clear to auscultate bilaterally Heart-Regular Abdomen-Soft,tender RLQ ,no guarding and or rigidity Bowel sound present Extremities-No edema Neuro-AAOx3 Lab data as noted below. ASSESSMENT & PLAN: 71 yo F with h/o recent diverticulitis on chronic antibiotics while awaiting her fistula repair surgery in Nov presents with worsening lower abdominal pain/ nausea x 1 week. Acute Diverticulitis- Known need for fistula repair. Was discharged on chronic Cipro/Flagyl, however, patient developed thrush and has been off all abx for 3 weeks. Began Zosyn IV until abdominal pain and clinical picture improves overall. General Surgery consulted-Appreciate input NPO,IFV ,Antibiotic and Pain medication Clears started -advance diet as tolerated Likely discharge tomorrow -will need continued antibiotic due to fistula and oral Nystatin for Thrush HTN-controlled, cont amlodipine and Cozaar. Hypothyroidism-cont Synthroid 100mcg daily Suarez's esophagus-cont Prevacid. Thrush-resolved. Can take oral Nystatin DVT prophy: Lovenox. Full Code Dispo-to med/surg Vital Signs: Date Time Temp Pulse Resp B/P (MAP) Pulse Ox O2 Delivery O2 Flow Rate FiO2 06/05/17 10:56 Room Air 06/05/17 07:08 36.9 69 20 125/76 (92) 97 06/05/17 00:00 Room Air 06/04/17 22:38 36.9 66 18 122/71 (88) 93 Room Air 06/04/17 16:23 Room Air 06/04/17 15:15 36.3 78 20 156/81 (106) 97 Room Air Lab Results: Results Past 24 Hours Test 06/05/17 07:22 Range/Units White Blood Count 5.07 4.8-10.8 K/uL Red Blood Count 4.67 4.2-5.4 M/uL Hemoglobin 12.7 12.0-16.0 g/dL Hematocrit 39.0 37-47 % Mean Corpuscular Volume 83.5 80-100 fL Mean Corpuscular Hemoglobin 27.2 25-34 pg Mean Corpuscular Hemoglobin Concent 32.6 32-36 g/dl RDW Standard Deviation 43.5 36.4-46.3 fL RDW Coefficient of Variation 14.4 11.5-14.5 % Platelet Count 243 130-400 K/uL Mean Platelet Volume 10.6 7.4-10.4 fL Sodium Level 141 136-145 mmol/L Potassium Level 4.2 3.5-5.1 mmol/L Chloride Level 109 98-107 mmol/L Carbon Dioxide Level 24 21-32 mmol/L Anion Gap 8.0 3-11 mmol/L Blood Urea Nitrogen 5 7-18 mg/dl Creatinine 0.67 0.60-1.20 mg/dl Est Creatinine Clear Calc Drug Dose 71.6 ml/min Estimated GFR () 101.8 Estimated GFR (Non- 87.8 BUN/Creatinine Ratio 7.0 10-20 Random Glucose 86 70-99 mg/dl Calcium Level 9.4 8.5-10.1 mg/dl
[2017-06-05] MEDS: AMLODIPINE BESYLATE 5 MG TAB PO SCH (21:02)
[2017-06-05] MEDS: LANSOPRAZOLE SOLUTAB 30 MG PO SCH (21:02)
[2017-06-06] VITALS: BP 114/68; PULSE 52; TEMP 36.5; O2SAT 95
[2017-06-06] MEDS: NSS + 20MEQ KCL 1000ML 1,000 ML IV SCH ×2 (01:10→11:17)
[2017-06-06] MEDS: HYDROmorphone INJ 0.5 MG/0.5 ML SYR IV PRN ×2 (01:56→08:18)
[2017-06-06] MEDS: LEVOTHYROXINE 100 MCG TAB PO SCH (05:46)
[2017-06-06] MEDS: PIPERACILL/TAZOBAC IV 3.375 GM in DEXTROSE 5% 100ML IV SCH ×2 (05:46→14:35)
[2017-06-06 07:12] LABS: PROTHROMBIN TIME (PATIENT) 10.7 SECONDS (9.0-12.0)
[2017-06-06 07:30] VITALS: BP 128/72; PULSE 65; TEMP 36.6; O2SAT 94
--- NOTE | 2017-06-06 07:54 | Surgery Progress Note ---
Surgery Progress Note Date of Service Jun 06, 2017. Subjective some Rt lower abd pain- unchged- tolerating diet no acute chgs Objective Vital Signs: Date Time Temp Pulse Resp B/P (MAP) Pulse Ox O2 Delivery O2 Flow Rate FiO2 06/06/17 07:30 36.6 20 128/72 (90) 94 Room Air 06/06/17 00:00 36.5 52 20 114/68 (83) 95 Room Air 06/06/17 00:00 Room Air 06/05/17 16:22 Room Air 06/05/17 14:51 36.4 63 18 148/79 (102) 95 Room Air 06/05/17 10:56 Room Air General Appearance: no apparent distress Respiratory/Chest: no respiratory distress Abdomen: soft (minimal tenderness) Laboratory Results: Results Past 24 Hours Test 06/06/17 06:03 Range/Units Prothrombin Time 10.7 9.0-12.0 SECONDS Prothromb Time International Ratio 1.0 0.9-1.1 Assessment & Plan 06/06/17- pt is stable with known diverticular disease and is scheduled for surgery in [place]- would cont with that plan and likely proceed with discharge today. Dr Grimm covering over weekend 06/05/17- overall stable, advancing diet- no plan for surgery here 06/04/17- No urgent surgical intervention needed. Cont current atbx- could try Augmentin when ready for d/c. If acute surgical intervention needed will suggest transfer to [place], but very stable now. 06/05/17- overall stable, advancing diet- no plan for surgery here 06/04/17- No urgent surgical intervention needed. Cont current atbx- could try Augmentin when ready for d/c. If acute surgical intervention needed will suggest transfer to [place], but very stable now.
[2017-06-06] MEDS: ONDANSETRON INJ 2 MG/ML 2 ML VIAL IV PRN (08:17)
[2017-06-06] MEDS: LOSARTAN POTASSIUM 50 MG TAB PO SCH (08:22)
[2017-06-06] MEDS: CHOLECALCIFEROL 400 INTER.UNIT TAB PO SCH (08:22)
[2017-06-06] MEDS: CALCIUM 600MG + VIT D 400 IU TAB PO SCH (08:22)
[2017-06-06] MEDS: ENOXAPARIN 40 MG/0.4 ML SYR SQ SCH (08:23)
[2017-06-06 09:14] VITALS: O2SAT 94
[2017-06-06 15:05] VITALS: BP 152/81; PULSE 74; TEMP 36.5; O2SAT 96
--- NOTE | 2017-06-06 16:34 | Progress Note ---
Internal Med Progress Note Date of Service: Jun 06, 2017. Provider Documentation: SUBJECTIVE: The patient was seen and examined Admitted with Acute Diverticulitis,no abscess and or perforation Pain is controlled with Dilaudid Remains stable Denies any symptoms Wants to go home OBJECTIVE: Vital Signs-as noted below Exam: General-No distress at rest Eyes-normal ENT-normal Neck-supple Lungs-Clear to auscultate bilaterally Heart-Regular Abdomen-Soft,tender RLQ ,no guarding and or rigidity Bowel sound present Extremities-No edema Neuro-AAOx3 Lab data as noted below. ASSESSMENT & PLAN: 71 yo F with h/o recent diverticulitis on chronic antibiotics while awaiting her fistula repair surgery in Nov presents with worsening lower abdominal pain/ nausea x 1 week. Acute Diverticulitis- Known need for fistula repair. Was discharged on chronic Cipro/Flagyl, however, patient developed thrush and has been off all abx for 3 weeks. Began Zosyn IV until abdominal pain and clinical picture improves overall. General Surgery consulted-Appreciate input NPO,IFV ,Antibiotic and Pain medication Clears started -advance diet as tolerated Likely discharge tomorrow on 06/06 -will need continued antibiotic due to fistula and oral Nystatin for Thrush Discussed with the Dr Naylor in [place] Advised to have low dose Cipor BID until she sees him Will cover with probiotics and oral Nystatin HTN-controlled, cont amlodipine and Cozaar. Hypothyroidism-cont Synthroid 100mcg daily Suarez's esophagus-cont Prevacid. Thrush-resolved. Can take oral Nystatin DVT prophy: Lovenox. Full Code Dispo-to med/surg Discharge home today Vital Signs: Date Time Temp Pulse Resp B/P (MAP) Pulse Ox O2 Delivery O2 Flow Rate FiO2 06/06/17 15:05 36.5 74 18 152/81 (104) 96 Room Air 06/06/17 09:14 94 Room Air 06/06/17 07:30 36.6 65 20 128/72 (90) 94 Room Air 06/06/17 00:00 36.5 52 20 114/68 (83) 95 Room Air 06/06/17 00:00 Room Air Lab Results: Results Past 24 Hours Test 06/06/17 06:03 Range/Units Prothrombin Time 10.7 9.0-12.0 SECONDS Prothromb Time International Ratio 1.0 0.9-1.1
[2017-06-06] MEDS ORDERED: LCTX PO (16:41)
[2017-06-06] MEDS ORDERED: CPRS5005 PO (16:41)
[2017-06-06] MEDS ORDERED: NYSS5 PO (16:41)
--- NOTE | 2017-06-06 16:44 | Discharge Instructions ---
Discharge Instructions Date of Service Jun 06, 2017. Admission Reason for Admission: Acute Diverticulitis Discharge Discharge Diagnosis / Problem: Acute Diverticulitis Discharge Goals Goal(s): Prevent Disease Progression Activity Recommendations Activity Limitations: resume your previous activity . Instructions / Follow-Up Instructions / Follow-Up DR Mazariegos on 06/10/17 at 10:25 AM.Please keep appointment with your Surgeon in [place] Current Hospital Diet Patient's current hospital diet: Regular Diet Discharge Diet Recommended Diet: Regular Diet, Low Fiber Diet, Low Fat Diet Pending Studies Studies pending at discharge: no Medical Emergencies . Who to Call and When: Medical Emergencies: If at any time you feel your situation is an emergency, please call 911 immediately. . Non-Emergent Contact Non-Emergency issues call your: Primary Care Provider . Past History Medical & Surgical History: (1) Acute diverticulitis (2) Intraductal carcinoma of left breast (3) HTN (hypertension) (4) Hypothyroidism (5) GERD (gastroesophageal reflux disease) (6) Suarez esophagus (7) History of appendectomy (8) Hx of tonsillectomy (9) S/P cholecystectomy (10) S/P left knee arthroscopy (11) S/P right knee arthroscopy (12) S/P wrist surgery (13) H/O foot surgery (14) H/O inguinal hernia repair . "Provider Documentation" section prepared by Marianna Douglass. . VTE Core Measure Inpt VTE Proph given/why not?: Enoxaparin (Lovenox)SQ
[2017-06-06] MEDS ORDERED: CIPROFLOXACIN 250 MG TAB PO ONE ×2 (16:45)
[2017-06-06 16:47] VITALS: BP 152/81; PULSE 74; TEMP 36.5; O2SAT 96
--- NOTE | 2017-06-07 08:15 | Discharge Summary ---
Discharge Summary Date of Service Jun 07, 2017. Discharge Summary Admission Date: Jun 03, 2017 at 22:58 Discharge Date: Jun 06, 2017 Discharge Disposition: Home Principal Diagnosis: Acute Diverticulitis Secondary Diagnoses/Problems: Please see H&P and Hospital Progress note Consultations: Surgery Medication Reconciliation New Medications: Ciprofloxacin (Cipro) 500 Mg/5 Ml Susp 250 MG PO BID, #60 Lactobacillus Acidophilus (Lactinex) Tab 2 TAB PO BID, #120 TAB Nystatin (Nystatin) 5 Ml Susp 5 ML PO QID, #120 DOSE Continued Medications: Amlodipine Besylate (Amlodipine Besylate) 5 Mg Tab 10 MG PO QPM 2 tablet dose Calcium Carbonate-Vitamin D W/ (Caltrate 600 Plus) 1 Tab Tab 1 TAB PO BID, TAB Cholecalciferol (Vitamin D 400) 400 Unit Chw 400 UNITS PO HS Diphenhydramine Hcl (Benadryl Allergy) 25 Mg Tab 25 MG PO DAILY PRN for allergies Lansoprazole (Prevacid Solutab) 30 Mg [place] 30 MG PO QPM Levothyroxine Sodium (Levothyroxine Sodium) 100 Mcg Tab 100 MCG PO QAM Lorazepam (Lorazepam) 0.5 Mg Tab 0.5 MG PO BID PRN for Anxiety Losartan Potassium (Cozaar) 50 Mg Tab 100 MG PO QAM 2 tablet dose Admission Information HPI (per Admitting provider): 71 yo F reports to the ER for 1 week history of lower abdominal pain and nausea. She has a history of acute diverticulitis for which she was recently admitted in April. At that time she was found to have a suspected fistula and was sent home on Cipro/Flagyl until her planned surgery in [place] on Jul 07, however, she developed thrush and stopped these antibiotics approximately 3 weeks ago. She notified her surgeon of this who instructed her not to go back on these same antibiotics. She just finished a course of Diflucan for the thrush which is resolved. She was tolerating PO and was about to be discharged from the ER when she vomited and was admitted for intolerance of PO 2/2 the diverticulitis. On exam, her vitals are normal, she is not in distress and her abdomen is soft, non-distended with mild TTP worse on the RLQ. She denies any fevers, chills GI bleeding, changes in her stools, SOB, CP, BILL, UTI symptoms, or back pain. She was not eating like normal with the nausea over the past week and reports a 20 lb weight loss over the past 3 months. During this time she was hospitalized for this issue at least twice. Past Medical/Surgical History Medical Problems: (1) Acute diverticulitis Status: Chronic (2) Suarez esophagus Status: Chronic (3) Diarrhea Status: Resolved (4) Diverticulitis Permanent Comment: multiple episodes since 2015 one episode with abscess requiring drainage; no other surgeries follows with [facility] Status: Chronic (5) GERD (gastroesophageal reflux disease) Status: Chronic (6) HLD (hyperlipidemia) Status: Chronic (7) HTN (hypertension) Status: Chronic (8) Hypothyroidism Status: Chronic (9) Intra-abdominal abscess Status: Resolved (10) Intraductal carcinoma of left breast Permanent Comment: Abnormal left breast mammogram Status post stereotactic biopsy 11/14/2015 revealing DCIS grade 1 Estrogen receptor positive and progesterone receptor positive Status post needle localization lumpectomy 12/20/2015 Stage pTis pNX Status post completion of radiation therapy 03/01/2016 received 3850 cGy utilizing accelerated partial breast irradiation. Status: Chronic Surgical Problems: (1) H/O foot surgery Status: Chronic (2) H/O inguinal hernia repair Status: Chronic (3) History of appendectomy Status: Chronic (4) Hx of tonsillectomy Status: Chronic (5) S/P cholecystectomy Status: Chronic (6) S/P left knee arthroscopy Status: Chronic (7) S/P right knee arthroscopy Status: Chronic (8) S/P wrist surgery Permanent Comment: left Status: Chronic Family History FH: breast cancer MOTHER FH: lung cancer FATHER Social History Smoking Status: Never Smoker Smokeless Tobacco Use: No Alcohol Use: none Drug Use: none Marital Status: Housing status: lives with significant other 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) Immunizations History of Influenza Vaccine: Yes Influenza Vaccine Date: Aug 07, 2016 History of Tetanus Vaccine?: Unknown History of Pneumococcal: Unknown History of Hepatitis B Vaccine: No Multi-Drug Resistant Organisms History of MDRO: No Allergies Coded Allergies: Iodinated Diagnostic Agents (Verified Allergy, Severe, sob, 06/03/17) Azithromycin (Verified Allergy, Intermediate, RASH, 06/03/17) Levalbuterol Hydrochloride (Verified Allergy, Intermediate, CHEST PAIN, ) Minocycline (Verified Allergy, Intermediate, RASH, 06/03/17) Iodine (Verified Allergy, Mild, IV CONTRAST, 06/03/17) Cefaclor (Verified Allergy, Unknown, HIVES, 06/03/17) Erythromycin (Verified Allergy, Unknown, HIVES, 06/03/17) Nitrofurantoin (Verified Allergy, Unknown, 06/03/17) Phenazopyridine (Verified Allergy, Unknown, sob, 06/03/17) Sulfa Antibiotics (Verified Allergy, Unknown, HIVES, 06/03/17) Levofloxacin (Verified Adverse Reaction, Intermediate, ABDOMINAL PAIN, 06/03/17) Morphine (Verified Adverse Reaction, Intermediate, EXCESSIVE VOMITING, 06/03/17) Pt. states excessive vomiting with this medication Home Medications Scheduled Amlodipine Besylate (Amlodipine Besylate), 10 MG PO QPM Calcium Carbonate-Vitamin D W/ (Caltrate 600 Plus), 1 TAB PO BID Cholecalciferol (Vitamin D 400), 400 UNITS PO HS Lansoprazole (Prevacid Solutab), 30 MG PO QPM Levothyroxine Sodium (Levothyroxine Sodium), 100 MCG PO QAM Losartan Potassium (Cozaar), 100 MG PO QAM Scheduled PRN Diphenhydramine Hcl (Benadryl Allergy), 25 MG PO DAILY PRN for allergies Lorazepam (Lorazepam), 0.5 MG PO BID PRN for Anxiety Review of Systems At least ten systems were reviewed and negative except as indicated in HPI above. Physical Ex - H&P Physical Exam Vital Signs Date Time Temp Pulse Resp B/P (MAP) Pulse Ox O2 Delivery O2 Flow Rate FiO2 06/03/17 23:56 36.3 64 16 128/78 96 Room Air 06/03/17 23:20 68 16 94 06/03/17 23:05 65 14 96 06/03/17 23:01 136/69 06/03/17 22:57 145/71 06/03/17 22:20 68 16 149/81 98 Room Air 06/03/17 20:29 36.7 81 16 149/80 98 Room Air General Appearance: WD/WN, no apparent distress Head: normocephalic, atraumatic Eyes: normal inspection, PERRL, sclerae normal ENT: hearing grossly normal, pharynx normal, + pertinent finding (slightly dry mucous membranes) Neck: supple, no adenopathy, no JVD, trachea midline Respiratory/Chest: lungs clear, normal breath sounds, no respiratory distress, no accessory muscle use Cardiovascular: regular rate, rhythm, no edema, no gallop, no JVD, no murmur, normal peripheral pulses Abdomen/GI: normal bowel sounds, soft, no organomegaly, + tenderness (RLQ>LLQ) Back: normal inspection, no CVA tenderness Extremities/Musculoskelatal: normal inspection, no pedal edema, normal range of motion, non-tender Neurologic/Psych: no motor/sensory deficits, alert, normal mood/affect, oriented x 3 Skin: normal color, warm/dry, no rash Diagnostics - H&P Diagnostics Laboratory Results 06/03/17 21:20 Red Blood Count 4.91, Mean Corpuscular Volume 81.9, Mean Corpuscular Hemoglobin 28.1, Mean Corpuscular Hemoglobin Concent 34.3, Mean Platelet Volume 10.4, Neutrophils (%) (Auto) 60.5, Lymphocytes (%) (Auto) 30.0, Monocytes (%) (Auto) 7.0, Eosinophils (%) (Auto) 2.0, Basophils (%) (Auto) 0.3, Neutrophils # (Auto) 5.25, Lymphocytes # (Auto) 2.61, Monocytes # (Auto) 0.61, Eosinophils # (Auto) 0.17, Basophils # (Auto) 0.03 06/03/17 21:20 Test 06/03/17 21:20 White Blood Count 8.69 K/uL (4.8-10.8) Red Blood Count 4.91 M/uL (4.2-5.4) Hemoglobin 13.8 g/dL (12.0-16.0) Hematocrit 40.2 % (37-47) Mean Corpuscular Volume 81.9 fL (80-100) Mean Corpuscular Hemoglobin 28.1 pg (25-34) Mean Corpuscular Hemoglobin Concent 34.3 g/dl (32-36) Platelet Count 251 K/uL (130-400) Mean Platelet Volume 10.4 fL (7.4-10.4) Neutrophils (%) (Auto) 60.5 % Lymphocytes (%) (Auto) 30.0 % Monocytes (%) (Auto) 7.0 % Eosinophils (%) (Auto) 2.0 % Basophils (%) (Auto) 0.3 % Neutrophils # (Auto) 5.25 K/uL (1.4-6.5) Lymphocytes # (Auto) 2.61 K/uL (1.2-3.4) Monocytes # (Auto) 0.61 K/uL (0.11-0.59) Eosinophils # (Auto) 0.17 K/uL (0-0.5) Basophils # (Auto) 0.03 K/uL (0-0.2) RDW Standard Deviation 42.1 fL (36.4-46.3) RDW Coefficient of Variation 14.1 % (11.5-14.5) Immature Granulocyte % (Auto) 0.2 % Immature Granulocyte # (Auto) 0.02 K/uL (0.00-0.02) Urine Color YELLOW Urine Appearance CLEAR (CLEAR) Urine pH 6.0 (4.5-7.5) Urine Specific [place] 1.013 (1.000-1.030) Urine Protein NEG (NEG) Urine Glucose (UA) NEG (NEG) Urine Ketones NEG (NEG) Urine Occult Blood NEG (NEG) Urine Nitrite NEG (NEG) Urine Bilirubin NEG (NEG) Urine Urobilinogen NEG (NEG) Urine Leukocyte Esterase MODERATE (NEG) Urine WBC (Auto) 10-30 /hpf (0-5) Urine RBC (Auto) 0-4 /hpf (0-4) Urine Hyaline Casts (Auto) 1-5 /lpf (0-5) Urine Epithelial Cells (Auto) 20-30 /lpf (0-5) Urine Bacteria (Auto) NEG (NEG) Anion Gap 8.0 mmol/L (3-11) Est Creatinine Clear Calc Drug Dose 63.1 ml/min Estimated GFR () 90.8 Estimated GFR (Non- 78.4 BUN/Creatinine Ratio 15.3 (10-20) Calcium Level 9.5 mg/dl (8.5-10.1) Total Bilirubin 0.4 mg/dl (0.2-1) Direct Bilirubin < 0.1 mg/dl (0-0.2) Aspartate Amino Transf (AST/SGOT) 10 U/L (15-37) Alanine Aminotransferase (ALT/SGPT) 13 U/L (12-78) Alkaline Phosphatase 98 U/L (45-117) Total Protein 7.5 gm/dl (6.4-8.2) Albumin 3.6 gm/dl (3.4-5.0) Lipase 143 U/L (73-393) Results Past 24 Hours Test 06/03/17 21:20 Range/Units White Blood Count 8.69 4.8-10.8 K/uL Red Blood Count 4.91 4.2-5.4 M/uL Hemoglobin 13.8 12.0-16.0 g/dL Hematocrit 40.2 37-47 % Mean Corpuscular Volume 81.9 80-100 fL Mean Corpuscular Hemoglobin 28.1 25-34 pg Mean Corpuscular Hemoglobin Concent 34.3 32-36 g/dl Platelet Count 251 130-400 K/uL Mean Platelet Volume 10.4 7.4-10.4 fL Neutrophils (%) (Auto) 60.5 % Lymphocytes (%) (Auto) 30.0 % Monocytes (%) (Auto) 7.0 % Eosinophils (%) (Auto) 2.0 % Basophils (%) (Auto) 0.3 % Neutrophils # (Auto) 5.25 1.4-6.5 K/uL Lymphocytes # (Auto) 2.61 1.2-3.4 K/uL Monocytes # (Auto) 0.61 0.11-0.59 K/uL Eosinophils # (Auto) 0.17 0-0.5 K/uL Basophils # (Auto) 0.03 0-0.2 K/uL RDW Standard Deviation 42.1 36.4-46.3 fL RDW Coefficient of Variation 14.1 11.5-14.5 % Immature Granulocyte % (Auto) 0.2 % Immature Granulocyte # (Auto) 0.02 0.00-0.02 K/uL Urine Color YELLOW Urine Appearance CLEAR CLEAR Urine pH 6.0 4.5-7.5 Urine Specific [place] 1.013 1.000-1.030 Urine Protein NEG NEG Urine Glucose (UA) NEG NEG Urine Ketones NEG NEG Urine Occult Blood NEG NEG Urine Nitrite NEG NEG Urine Bilirubin NEG NEG Urine Urobilinogen NEG NEG Urine Leukocyte Esterase MODERATE NEG Urine WBC (Auto) 10-30 0-5 /hpf Urine RBC (Auto) 0-4 0-4 /hpf Urine Hyaline Casts (Auto) 1-5 0-5 /lpf Urine Epithelial Cells (Auto) 20-30 0-5 /lpf Urine Bacteria (Auto) NEG NEG Sodium Level 139 136-145 mmol/L Potassium Level 3.3 3.5-5.1 mmol/L Chloride Level 106 98-107 mmol/L Carbon Dioxide Level 25 21-32 mmol/L Anion Gap 8.0 3-11 mmol/L Blood Urea Nitrogen 12 7-18 mg/dl Creatinine 0.76 0.60-1.20 mg/dl Est Creatinine Clear Calc Drug Dose 63.1 ml/min Estimated GFR () 90.8 Estimated GFR (Non- 78.4 BUN/Creatinine Ratio 15.3 10-20 Random Glucose 98 70-99 mg/dl Calcium Level 9.5 8.5-10.1 mg/dl Total Bilirubin 0.4 0.2-1 mg/dl Direct Bilirubin < 0.1 0-0.2 mg/dl Aspartate Amino Transf (AST/SGOT) 10 15-37 U/L Alanine Aminotransferase (ALT/SGPT) 13 12-78 U/L Alkaline Phosphatase 98 45-117 U/L Total Protein 7.5 6.4-8.2 gm/dl Albumin 3.6 3.4-5.0 gm/dl Lipase 143 73-393 U/L Diagnostic Radiology CT SCAN OF THE ABDOMEN AND PELVIS WITHOUT IV CONTRAST CLINICAL HISTORY: Generalized abdominal pain. COMPARISON STUDY: Abdominal CT dated 04/25/2017. TECHNIQUE: CT scan of the abdomen and pelvis is performed from the lung bases to the proximal femora. Images are reviewed in the axial, sagittal, and coronal planes. IV contrast was not administered for this examination as per the referring clinician. Note that the examination was performed in suboptimal fashion without oral and IV contrast. A dose lowering technique was utilized adhering to the principles of ALARA. CT DOSE: 533.20 mGy.cm FINDINGS: Lung bases: The heart is normal in size and without pericardial effusion. The lung bases are clear. Liver: The unenhanced liver is normal in size, contour, and attenuation. There are numerous hepatic cysts. The largest is located in the right lobe and measures 3.6 cm. There is no intrahepatic biliary ductal dilatation. Gallbladder: Surgically absent noting clips in the gallbladder fossa. Spleen: Normal in size and attenuation. There are calcified splenic granulomas. Pancreas: A 1.4 cm IPMN is again suggested in the pancreatic head. The unenhanced pancreas is atrophic and otherwise grossly unremarkable. Adrenal glands: Unremarkable. Kidneys: The unenhanced kidneys demonstrate cortical atrophy and are without hydronephrosis. There are no renal calculi identified. There is no evidence of contour deforming renal mass lesion. Parapelvic cysts are suggested on the left. Abdominal vasculature: The abdominal aorta is normal in course and caliber noting moderate atherosclerotic calcification. Bowel: No bowel obstruction is seen. There is moderate to advanced colonic diverticulosis. Mild wall thickening and faint pericolonic infiltration is seen adjacent to the sigmoid colon on axial image #285 suggesting mild acute diverticulitis. There is no evidence of abscess. The appendix is not identified and reported surgically absent. Peritoneum: There is no intraperitoneal free air or abdominal ascites. Lymphadenopathy: None. 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 This is similar to prior studies. The bladder is otherwise normal as imaged. The uterus and adnexa are normal appearance . There is evidence of previous right inguinal herniorrhaphy. 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 Skeletal structures: The skeletal structures are osteopenic. There are bilateral pars defects of L5. Mild lumbosacral spondylosis is observed. No lytic or blastic lesions are seen. IMPRESSION: 1. Suboptimal examination without oral and IV contrast. 2. Findings are consistent with mild acute diverticulitis of the sigmoid colon. There is no intraperitoneal free air or evidence of abscess on this unenhanced examination. If not recently performed, consider follow-up with colonoscopy following appropriate treatment. 3. A fistula is again questioned between the dome of the bladder and a loop of adjacent small bowel. This is similar to prior studies. 4. A rectovaginal fistula is again questioned. 5. Additional findings as above. EKG SB 56, I RBBB. Impression - H&P Impression Assessment and Plan 71 yo F with h/o recent diverticulitis on chronic antibiotics while awaiting her fistula repair surgery in Nov presents with worsening lower abdominal pain/ nausea x 1 week. 1. Diverticulitis-known need for fistula repair. Was discharged on chronic Cipro/Flagyl, however, patient developed thrush and has been off all abx for 3 weeks. She reports being instructed to not go back on Cipro/flagyl per her [place] surgeon. Began Zosyn IV until abdominal pain and clinical picture improves overall. Cont clears, Gen Surg was consulted. 2. HTN-controlled, cont amlodipine and Cozaar. 3. Hypothyroidism-cont Synthroid 100 daily 4. Suarez's esophagus-cont Prevacid. 5. Thrush-resolved. 6. Hypokalemia-replaced with oral supplementation. DVT prophy: Lovenox. Full Code Dispo-to med[facility]surg [facility]urg Advanced Directives Existing Living Will: Yes Existing Power of Carpet Inspector: No Resuscitation Status FULL RESUSCITATION VTE Prophylaxis VTE Risk Assessment Done? Y/N: Yes Risk Level: Moderate Given or contraindicated: Enoxaparin (Lovenox)SQ Physical Exam (per Admitting): General Appearance: WD/WN, no apparent distress Head: normocephalic, atraumatic Eyes: normal inspection, PERRL, sclerae normal ENT: hearing grossly normal, pharynx normal, + pertinent finding (slightly dry mucous membranes) Neck: supple, no adenopathy, no JVD, trachea midline Respiratory/Chest: lungs clear, normal breath sounds, no respiratory distress, no accessory muscle use Cardiovascular: regular rate, rhythm, no edema, no gallop, no JVD, no murmur , normal peripheral pulses Abdomen/GI: normal bowel sounds, soft, no organomegaly, + tenderness (RLQ> LLQ) Back: normal inspection, no CVA tenderness Extremities/Musculoskelatal: normal inspection, no pedal edema, normal range of motion, non-tender Neurologic/Psych: no motor/sensory deficits, alert, normal mood/affect, oriented x 3 Skin: normal color, warm/dry, no rash Hospital Course 71 yo F with h/o recent diverticulitis on chronic antibiotics while awaiting her fistula repair surgery in Nov presents with worsening lower abdominal pain/ nausea x 1 week. Acute Diverticulitis- Known need for fistula repair. Was discharged on chronic Cipro/Flagyl, however, patient developed thrush and has been off all abx for 3 weeks. Began Zosyn IV until abdominal pain and clinical picture improves overall. General Surgery consulted-Appreciate input NPO,IFV ,Antibiotic and Pain medication Clears started -advance diet as tolerated Likely discharge tomorrow on 06/06 -will need continued antibiotic due to fistula and oral Nystatin for Thrush Discussed with the Dr Naylor in [place] Advised to have low dose Cipor BID until she sees him Will cover with probiotics and oral Nystatin HTN-controlled, cont amlodipine and Cozaar. Hypothyroidism-cont Synthroid 100mcg daily Suarez's esophagus-cont Prevacid. Thrush-resolved. Can take oral Nystatin DVT prophy: Lovenox. Full Code Dispo-to med/surg Discharge home today Total time spent on discharge = 35 minutes This includes examination of the patient, discharge planning, medication reconciliation, and communication with other providers. Discharge Instructions Date of Service Jun 06, 2017. Admission Reason for Admission: Acute Diverticulitis Discharge Discharge Diagnosis / Problem: Acute Diverticulitis Discharge Goals Goal(s): Prevent Disease Progression Activity Recommendations Activity Limitations: resume your previous activity . Instructions / Follow-Up Instructions / Follow-Up DR Mazariegos on 06/10/17 at 10:25 AM.Please keep appointment with your Surgeon in [place] Current Hospital Diet Patient's current hospital diet: Regular Diet Discharge Diet Recommended Diet: Regular Diet, Low Fiber Diet, Low Fat Diet Pending Studies Studies pending at discharge: no Medical Emergencies . Who to Call and When: Medical Emergencies: If at any time you feel your situation is an emergency, please call 911 immediately. . Non-Emergent Contact Non-Emergency issues call your: Primary Care Provider . Past History Medical & Surgical History: (1) Acute diverticulitis (2) Intraductal carcinoma of left breast (3) HTN (hypertension) (4) Hypothyroidism (5) GERD (gastroesophageal reflux disease) (6) Suarez esophagus (7) History of appendectomy (8) Hx of tonsillectomy (9) S/P cholecystectomy (10) S/P left knee arthroscopy (11) S/P right knee arthroscopy (12) S/P wrist surgery (13) H/O foot surgery (14) H/O inguinal hernia repair . "Provider Documentation" section prepared by Marianna Douglass. . VTE Core Measure Inpt VTE Proph given/why not?: Enoxaparin (Lovenox)SQ <Electronically signed by Marianna Douglass M.D.> Additional Copies To Sophie Mazariegos M.D.
== END 2017-06-06 17:57 | disposition home or self-care (01) | DRG 392 ==
LOC: C.EDB 20:23 → C.MS2W 22:58 → ENRESERV 23:10
PROVIDERS: ADMIT Hospitalist; ATTEND Internal Medicine
DX: K57.92 Diverticulitis of intestine, part unspecified, without perforation or abscess without bleeding (principal); K21.9 Gastro-esophageal reflux disease without esophagitis; E78.5 Hyperlipidemia, unspecified; I10 Essential (primary) hypertension; E03.9 Hypothyroidism, unspecified; E87.6 Hypokalemia; B37.9 Candidiasis, unspecified; Z90.49 Acquired absence of other specified parts of digestive tract; Z80.3 Family history of malignant neoplasm of breast; Z80.1 Family history of malignant neoplasm of trachea, bronchus and lung

== ENCOUNTER 2017-07-15 21:31 | Emergency (ER) | payer BC, OTHER ==
[~2017-07-15] VITALS: Ht 154.9 cm; Wt 80.0 kg
[~2017-07-15 21:31] MED LIST changes: +CALCTAB7 PO; -CIPR1SUS PO; +CPRS5005 PO; -DIPH1TAB PO; +DIPH1TAB87 PO; -DIPH38TA PO; +LCTX PO; -MTR500 PO; +NYSS5 PO
[2017-07-15 21:35] VITALS: TEMP 36.6; Ht 154.9 cm; Wt 80.0 kg
[2017-07-15] MEDS ORDERED: HYDROmorphone INJ 1 MG/ML SYR IV STA (22:05)
[2017-07-15] MEDS ORDERED: SODIUM CHLORIDE 0.9% 500ML 500 ML IV STA (22:05)
[2017-07-15] MEDS ORDERED: METOCLOPRAMIDE HCL INJ 5 MG/ML 2 ML VIAL IV STA (22:05)
[2017-07-15] MEDS ORDERED: DiphenhydrAMINE HCL 50 MG/ML VIAL IV STA (22:10)
[2017-07-15] MEDS ORDERED: METHYLPREDNISOLONE 125 MG VIAL IV STA (22:10)
--- NOTE | 2017-07-15 22:14 | EMERGENCY ROOM VISIT NOTE ---
History Report prepared by Aracelis: Fallon Kemp Under the Supervision of: Dr. Jamar Rodríguez M.D. First contact with patient: 21:54 Chief Complaint: WOUND INFECTION Stated Complaint: PAIN AND DRAINING BLOOD FROM SURGICAL SITE Nursing Triage Summary: Pt states she had abdominal surgery 8 days ago in [place] to remove sections of her large and small intestine. clear drainage noted yesterday from large midabdominal surgical site per pt, today serosang drainage and fever of 100.6 F. History of Present Illness The patient is a 71 year old female who presents to the Emergency Room with complaints of drainage from her wound site beginning yesterday. The patient had abdominal surgery 8 days ago in [place] to remove sections of her large and small intestine. She reports clear drainage from the large midabdominal surgical site. Today, the patient reports serosanguineous drainage and fever of 100.6 F. The patient had diverticulitis and a fistula. She notes abdominal pain. She took an oxycodone pill a couple hours ago. The patient has a follow up appointment with Dr. Mazariegos on . She states she has been having normal bowel movements. The patient is on Lovenox shots. Source of History: patient Onset: yesterday Position: abdomen Quality: other (wound drainage) Associated Symptoms: + fevers, + abdominal pain Review of Systems See HPI for pertinent positives & negatives. A total of 10 systems reviewed and were otherwise negative. 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 Surgical Problems: (1) H/O foot surgery (2) H/O inguinal hernia repair (3) History of appendectomy (4) Hx of tonsillectomy (5) S/P cholecystectomy (6) S/P left knee arthroscopy (7) S/P right knee arthroscopy (8) S/P wrist surgery Family History FH: breast cancer MOTHER FH: lung cancer FATHER Social History Smoking Status: Former Smoker Alcohol Use: none Drug Use: none Marital Status: Housing Status: lives with family Occupation Status: retired Current/Historical Medications Scheduled Amlodipine Besylate (Amlodipine Besylate), 10 MG PO QPM Cholecalciferol (Vitamin D 400), 400 UNITS PO HS Ciprofloxacin (Cipro), 250 MG PO BID Lansoprazole (Prevacid Solutab), 30 MG PO QPM Levothyroxine Sodium (Levothyroxine Sodium), 100 MCG PO QAM Losartan Potassium (Cozaar), 100 MG PO QAM Scheduled PRN Lorazepam (Lorazepam), 0.5 MG PO BID PRN for Anxiety Allergies Coded Allergies: Iodinated Diagnostic Agents (Verified Allergy, Severe, sob, 07/16/17) Azithromycin (Verified Allergy, Intermediate, RASH, 07/16/17) Levalbuterol Hydrochloride (Verified Allergy, Intermediate, CHEST PAIN, ) Minocycline (Verified Allergy, Intermediate, RASH, 07/16/17) Iodine (Verified Allergy, Mild, IV CONTRAST, 07/16/17) Cefaclor (Verified Allergy, Unknown, HIVES, 07/16/17) Erythromycin (Verified Allergy, Unknown, HIVES, 07/16/17) Nitrofurantoin (Verified Allergy, Unknown, 07/16/17) Phenazopyridine (Verified Allergy, Unknown, sob, 07/16/17) Sulfa Antibiotics (Verified Allergy, Unknown, HIVES, 07/16/17) Levofloxacin (Verified Adverse Reaction, Intermediate, ABDOMINAL PAIN, ) Morphine (Verified Adverse Reaction, Intermediate, EXCESSIVE VOMITING, ) Pt. states excessive vomiting with this medication Physical Exam Vital Signs Date Time Temp Pulse Resp B/P (MAP) Pulse Ox O2 Delivery O2 Flow Rate FiO2 07/16/17 01:51 70 20 133/65 94 Room Air 07/16/17 01:00 70 18 146/64 93 Room Air 07/15/17 23:56 62 22 147/75 07/15/17 22:50 68 07/15/17 22:47 67 16 135/63 93 Room Air 07/15/17 22:47 95 Room Air 07/15/17 21:35 36.6 95 20 144/80 96 Room Air Physical Exam GENERAL: Patient is a healthy-appearing well-nourished female HEAD: Normocephalic atraumatic EYES: Ocular movements intact pupils equal and react to light OROPHARYNX mucous membranes are moist no exudates present no erythema or edema present NECK: Supple no nuchal rigidity CHEST: Good equal expansion LUNGS: Clear and equal to auscultation CARDIAC: Normal S1 and S2 ABDOMEN: Soft nontender no guarding. Serosanguineous fluid leaking from abdominal wound. BACK: No CVA tenderness EXTREMITIES: No pain upon palpation normal muscle strength in all groups no clubbing cyanosis or edema NEURO: Patient is following commands and answering questions appropriately. Alert and oriented x3 Cranial Nerves 2-12 grossly intact Medical Decision & Procedures ER Provider Diagnostic Interpretation: Radiology results as stated below per my review and radiologist interpretation: CT ABDOMEN & PELVIS With Contrast: 3x6 cm fluid collection in the lower abdominal wall with associated foci of air. Could be post op collection or abscess in the proper clinical setting. Collection of fluid measuring 6 by 8 cm in the presacral area with adjacent foci of air. Postsurgical vs. abscess. Recommend further evaluation if there's any concern for dehiscence or leak at the anastomosis. Some distended small vowel loops with air fluid levels in the central abdomen. Could be evolving obstruction or ileus. Cardiomegaly. Trace of bilateral pleural fluid. Consolidative atelectasis in the right lung base. hepatic cysts and other too small to characterize low attenuation foci. Cholecystectomy and mild biliary ductal dilation. Bowel surgery. Colonic diverticula without diverticulitis. Mesh in the right inguinal region. Radiologist: Anthony Roberson Laboratory Results 07/15/17 22:41 Red Blood Count 4.14, Mean Corpuscular Volume 82.6, Mean Corpuscular Hemoglobin 27.5, Mean Corpuscular Hemoglobin Concent 33.3, Mean Platelet Volume 10.0, Neutrophils (%) (Auto) 82.0, Lymphocytes (%) (Auto) 9.8, Monocytes (%) (Auto) 5.4, Eosinophils (%) (Auto) 1.1, Basophils (%) (Auto) 0.4, Neutrophils # (Auto) 11.70, Lymphocytes # (Auto) 1.40, Monocytes # (Auto) 0.77, Eosinophils # (Auto) 0.16, Basophils # (Auto) 0.05 07/15/17 22:41 Test 07/15/17 22:41 07/15/17 22:46 07/15/17 23:40 White Blood Count 14.26 K/uL (4.8-10.8) Red Blood Count 4.14 M/uL (4.2-5.4) Hemoglobin 11.4 g/dL (12.0-16.0) Hematocrit 34.2 % (37-47) Mean Corpuscular Volume 82.6 fL (80-100) Mean Corpuscular Hemoglobin 27.5 pg (25-34) Mean Corpuscular Hemoglobin Concent 33.3 g/dl (32-36) Platelet Count 443 K/uL (130-400) Mean Platelet Volume 10.0 fL (7.4-10.4) Neutrophils (%) (Auto) 82.0 % Lymphocytes (%) (Auto) 9.8 % Monocytes (%) (Auto) 5.4 % Eosinophils (%) (Auto) 1.1 % Basophils (%) (Auto) 0.4 % Neutrophils # (Auto) 11.70 K/uL (1.4-6.5) Lymphocytes # (Auto) 1.40 K/uL (1.2-3.4) Monocytes # (Auto) 0.77 K/uL (0.11-0.59) Eosinophils # (Auto) 0.16 K/uL (0-0.5) Basophils # (Auto) 0.05 K/uL (0-0.2) RDW Standard Deviation 44.4 fL (36.4-46.3) RDW Coefficient of Variation 14.7 % (11.5-14.5) Immature Granulocyte % (Auto) 1.3 % Immature Granulocyte # (Auto) 0.18 K/uL (0.00-0.02) Prothrombin Time 11.0 SECONDS (9.0-12.0) Prothromb Time International Ratio 1.0 (0.9-1.1) Activated Partial Thromboplast Time 27.1 SECONDS (21.0-31.0) Partial Thromboplastin Ratio 1.0 Est Creatinine Clear Calc Drug Dose 76.1 ml/min Estimated GFR () 103.3 Estimated GFR (Non- 89.2 BUN/Creatinine Ratio 11.7 (10-20) Calcium Level 8.7 mg/dl (8.5-10.1) Total Bilirubin 0.9 mg/dl (0.2-1) Direct Bilirubin mg/dl (0-0.2) Aspartate Amino Transf (AST/SGOT) 17 U/L (15-37) Alanine Aminotransferase (ALT/SGPT) 16 U/L (12-78) Alkaline Phosphatase 165 U/L (45-117) Total Creatine Kinase 29 U/L (26-192) Creatine Kinase MB < 0.5 ng/ml (0.5-3.6) Creatine Kinase MB Ratio (0-3.0) Troponin I < 0.015 ng/ml (0-0.045) Total Protein 6.5 gm/dl (6.4-8.2) Albumin 2.2 gm/dl (3.4-5.0) Bedside Hemoglobin 11.2 g/dl (12.0-16.0) Bedside Hematocrit 33 % (37-47) Bedside Sodium 135 mEq/L (135-144) Bedside Potassium 3.4 mEq/L (3.3-5.0) Bedside Chloride 98 mEq/L (101-112) Bedside Total CO2 27 mEq/l (24-31) Anion Gap 15.0 mmol/L (16-25) Bedside Blood Urea Nitrogen 7 mg/dl (7-18) Bedside Creatinine 0.6 mg/dl (0.6-1.3) Bedside Glucose (other) 111 mg/dl (70-99) Bedside Ionized Calcium (Dionicio) 1.08 mmol/l (1.12-1.32) Urine Color YELLOW Urine Appearance CLEAR (CLEAR) Urine pH 7.0 (4.5-7.5) Urine Specific Kathleen 1.024 (1.000-1.030) Urine Protein NEG (NEG) Urine Glucose (UA) NEG (NEG) Urine Ketones TRACE (NEG) Urine Occult Blood NEG (NEG) Urine Nitrite NEG (NEG) Urine Bilirubin NEG (NEG) Urine Urobilinogen NEG (NEG) Urine Leukocyte Esterase SMALL (NEG) Urine WBC (Auto) 1-5 /hpf (0-5) Urine RBC (Auto) 0-4 /hpf (0-4) Urine Hyaline Casts (Auto) 1-5 /lpf (0-5) Urine Epithelial Cells (Auto) 20-30 /lpf (0-5) Urine Bacteria (Auto) NEG (NEG) Labs reviewed by ED physician. Medications Administered Medications (Trade) Dose Ordered Sig/Barb Route Start Time Stop Time Status Last Admin Dose Admin Sodium Chloride 500 ml @ 999 mls/hr Q31M STAT IV 07/15/17 22:05 07/15/17 22:35 DC 07/15/17 22:40 999 MLS/HR Metoclopramide HCl (Reglan Inj) 10 mg NOW STAT IV 07/15/17 22:05 07/15/17 22:08 DC 07/15/17 22:39 10 MG Hydromorphone HCl (Dilaudid Inj) 1 mg NOW STAT IV 07/15/17 22:05 07/15/17 22:08 DC 07/15/17 22:39 1 MG Methylprednisolone Sodium Succinate (Solu-Medrol IV) 125 mg NOW STAT IV 07/15/17 22:10 07/15/17 22:11 DC 07/15/17 22:39 125 MG Diphenhydramine HCl (Benadryl Inj) 50 mg NOW STAT IV 07/15/17 22:10 07/15/17 22:11 DC 07/15/17 22:39 50 MG ECG Indication: abdominal pain Rate (beats per minute): 76 Rhythm: normal sinus Findings: no acute ischemic change, no ectopy ED Course 2200: Past medical records reviewed. The patient was evaluated in room C6. A complete history and physical examination was performed. 2205: Dilaudid Inj 1 mg IV. Reglan Inj 10 mg IV, Sodium Chloride 500 ml @ 999 mls/hr. 2210: Benadryl 50 mg IV, Solu-Medrol IV 125 mg IV. 0012: I discussed the patient's case with Dr. De Jesus[facility] Surgeon, she has agreed to evaluate the patient for further management and care. 0023: The patient will be transferred to [place] for further evaluation. Medical Decision Differential diagnosis: Etiologies such as appendicitis, diverticulitis, PUD, biliary pathology, UTI, pancreatitis, obstruction, mesenteric ischemia, aortic pathology, infections, inflammatory bowel disease, renal colic, as well as others were entertained. This is a 71-year-old feel who presents emergency department after surgery in [place]. The patient has an elevation in her white blood count cell count is complaining of serositis fluid draining from her wound. I wound culture was obtained. She does have an elevation in her white blood cell count and was sent for CAT scan of the abdomen pelvis. Based on his CAT scan the abdomen pelvis I did discuss the case with the surgeon on-call in [place] who asked that the patient be transferred. Patient was in agreement with the treatment plan. Blood Pressure Screening Patient's blood pressure: Elevated blood pressure Blood pressure disposition: Referred to PCP (will be evaluated by Dr. De Jesus) Consults Time Called: 0000 Consulting Physician: Dr. Goldie Grossman Surgeon Returned Call: 0012 I discussed the patient's case with Dr. Goldie Grossman Surgeon, she has agreed to evaluate the patient for further management and care. Impression Primary Impression: Wound drainage Scribe Attestation The scribe's documentation has been prepared under my direction and personally reviewed by me in its entirety. I confirm that the note above accurately reflects all work, treatment, procedures, and medical decision making performed by me. Departure Information Dispostion Transfer Acute Care Facility Referrals No Doctor, Assigned (PCP) Patient Instructions My [facility]
[2017-07-15] MEDS ORDERED: OPTIRAY 320 IV PRN (22:15)
[2017-07-15 22:47] VITALS: O2SAT 95
[2017-07-15 22:57] LABS: BASO % 0.4 %; BASO ABS # 0.05 K/uL (0-0.2); COMPLETE YES; EOS % 1.1 %; HEMATOCRIT 34.2 % (37-47); IG% 1.3 %; LYMPH % 9.8 %; MEAN CELL VOLUME 82.6 fL (80-100); MEAN CORPUSCULAR HEMOGLOBIN 27.5 pg (25-34); MEAN CORPUSCULAR HGB CONC 33.3 g/dl (32-36); MONO % 5.4 %; PLATELET COUNT 443 K/uL (130-400); RED BLOOD COUNT 4.14 M/uL (4.2-5.4); WHITE BLOOD COUNT 14.26 K/uL (4.8-10.8)
[2017-07-15 23:02] LABS: ISTAT CREATININE 0.6 mg/dl (0.6-1.3); ISTAT HEMOGLOBIN 11.2 g/dl (12.0-16.0); ISTAT IONIZED CALCIUM 1.08 mmol/l (1.12-1.32)
[2017-07-15 23:19] LABS: BLOOD UREA NITROGEN 8 mg/dl (7-18); CREATININE 0.64 mg/dl (0.60-1.20); GLUCOSE 105 mg/dl (70-99)
[2017-07-15 23:20] LABS: ALT/SGPT 16 U/L (12-78); BUN/CREATININE RATIO 11.7 (10-20); CALCIUM 8.7 mg/dl (8.5-10.1); CARBON DIOXIDE 24 mmol/L (21-32); CHLORIDE 99 mmol/L (98-107)
[2017-07-15 23:21] LABS: ALKALINE PHOSPHATASE 165 U/L (45-117)
[2017-07-15 23:24] LABS: POTASSIUM 3.6 mmol/L (3.5-5.1); SODIUM 137 mmol/L (136-145)
[2017-07-15 23:49] LABS: AST/SGOT 17 U/L (15-37)
[2017-07-16 00:02] LABS: URINE APPEARANCE CLEAR (CLEAR); URINE BILIRUBIN NEG (NEG); URINE COLOR YELLOW; URINE EPITHELIAL CELL AUTO 20-30 /lpf (0-5); URINE NITRITE NEG (NEG); URINE SPECIFIC GRAVITY 1.024 (1.000-1.030); UROBILINOGEN NEG (NEG)
[2017-07-16 00:05] LABS: MANUAL MICROSCOPIC REQUIRED? NO; REVIEW REQ? NO
[2017-07-16] MEDS ORDERED: CPRS5005 PO (00:41)
[2017-07-16 01:51] VITALS: BP 133/65; PULSE 70; O2SAT 94
--- NOTE | 2017-07-16 07:16 | DIAGNOSTIC IMAGING REPORT ---
ABDOMEN AND PELVIS CT WITH IV CONTRAST CT DOSE: 592.71 mGy.cm HISTORY: Pt c/o surgical site drainage TECHNIQUE: Multiaxial CT images of the abdomen and pelvis were performed following the use of intravenous contrast. A dose lowering technique was utilized adhering to the principles of ALARA. COMPARISON STUDY: Abdomen and pelvis CT 06/03/2017. FINDINGS: Trace right pleural effusion. Bibasilar densities favor subsegmental atelectasis. No suspicious lytic or blastic osseous lesions. Multiple hypodense lesions seen throughout the liver. These remain unchanged and likely represent cysts. Cholecystectomy. The spleen, adrenal glands, and kidneys are within normal limits. A few small left peripelvic renal cyst. No hydronephrosis. No retroperitoneal lymphadenopathy. A 1.3 cm hypodense lesion within the pancreatic head. This is stable and likely represents a small cystic lesion. Prior lower midline abdominal wall incision. There is small amount of gas and fluid at the incision site within the subcutaneous fat. This measures up to 3 cm in thickness. The bladder, uterus, and ovaries are unremarkable. Prior sigmoid and small bowel anastomosis within the deep pelvis. There is a gas and fluid collection within the presacral space which demonstrates partial peripheral enhancement. This measures approximate 7 x 5 cm. This abuts the small bowel anastomosis and raises the possibility of anastomotic leak. Colonic diverticulosis. Mild fat stranding within the deep pelvis. Distended loops of proximal small bowel with a transition point located on image [id number] within the midabdomen. There is gas and stool seen within the colon. Therefore, this could represent a partial small bowel obstruction at this time. IMPRESSION: 1. Small amount of gas and fluid at the incision site within the lower midline abdominal wall within the subcutaneous fat. This measures up to 3 cm in thickness. This likely represents a seroma. However, a developing abscess could also have a similar appearance. 2. There is also a 7 x 5 cm presacral fluid containing collection containing a small amount of gas. This demonstrates incomplete peripheral enhancement. Therefore, this also could represent a postoperative fluid collection or developing abscess. This abuts the small bowel anastomosis within the deep pelvis and does raise the possibility of a anastomotic leak. 3. Distended loops of proximal small bowel with a transition point within the midabdomen. This could be due to a partial small bowel obstruction. Electronically signed by: Chencho Leonardo M.D. 07/16/2017 7:15 AM Dictated Date/Time: 07/16/2017 7:05 AM
== END 2017-07-16 02:25 | disposition short-term general hospital (02) ==
LOC: C.EDB 21:32 → C.EDC 07-16 02:25
DX: T81.89XA Other complications of procedures, not elsewhere classified, initial encounter (principal); Y83.6 Removal of other organ (partial) (total) as the cause of abnormal reaction of the patient, or of later complication, without mention of misadventure at the time of the procedure; I10 Essential (primary) hypertension; E03.9 Hypothyroidism, unspecified; K22.70 Barrett's esophagus without dysplasia; K21.9 Gastro-esophageal reflux disease without esophagitis; Z85.3 Personal history of malignant neoplasm of breast; Z87.891 Personal history of nicotine dependence; Z90.49 Acquired absence of other specified parts of digestive tract; Z90.89 Acquired absence of other organs; Z98.890 Other specified postprocedural states; Z80.3 Family history of malignant neoplasm of breast; Z80.1 Family history of malignant neoplasm of trachea, bronchus and lung; Z79.899 Other long term (current) drug therapy

== ENCOUNTER 2017-07-27 08:54 | Inpatient (IN) | payer BC, OTHER ==
[~2017-07-27] VITALS: Ht 172.7 cm; Wt 69.0 kg
[~2017-07-27 08:54] MED LIST changes: -CALCTAB7 PO; -DIPH1TAB87 PO; -LCTX PO; -NYSS5 PO
[2017-07-27] MEDS ORDERED: MTR500 PO (09:19)
[2017-07-27] MEDS ORDERED: VANC1CAP3 PO (09:19)
[2017-07-27] MEDS ORDERED: LCTX PO (09:19)
[2017-07-27] MEDS ORDERED: SODIUM CHLORIDE 0.9% 1000ML 1,000 ML IV STA (09:25)
[2017-07-27] MEDS ORDERED: ONDANSETRON INJ 2 MG/ML 2 ML VIAL IV STA (09:25)
[2017-07-27] MEDS ORDERED: HYDROmorphone INJ 1 MG/ML SYR IV STA (09:25)
--- NOTE | 2017-07-27 09:27 | EMERGENCY ROOM VISIT NOTE ---
History Report prepared by Aracelis: Lorenzo Burns Under the Supervision of: Dr. Jamar Rodríguez M.D. First contact with patient: 09:11 Chief Complaint: NAUSEA Stated Complaint: PAIN, WEAK RECENT SURG. Nursing Triage Summary: 3 weeks ago pt had bowel resection at [facility] pt got infection and had drain applied into buttock pt is very weak, nauseated, and dry heaving at triage pt feels dehydrated History of Present Illness The patient is a 71 year old female who presents to the Emergency Room with complaints of persistent nausea that started a week ago. Per the patient's daughter, the patient had a bowel resection at [facility] 3 weeks ago, but developed C. difficile and had a drain applied into her buttock. The patient was taking Flagyl, and was stopped, but started taking it again since yesterday because she was told to do so. She was discharged from [facility] a week ago, and ever since then, she has been weak and nauseated, and cannot eat. The patient notes that she is dehydrated, and has been vomiting stomach acid and foam. The patient states that she has been dry heaving as well. She adds that she has a bit of abdominal pain. The patient says that the drain in her buttock is the reason for her nausea. She says that she is still having some stool, which is diarrhea-like in nature. Source of History: patient, family Onset: A week ago Position: other (global - nausea) Quality: other (due to drain in buttock) Timing: other (persistent) Associated Symptoms: + vomiting (and dry heaving), + abdominal pain, + diarrhea, + weakness Note: Associated symptoms: Dehydration. Cannot eat. Review of Systems See HPI for pertinent positives & negatives. A total of 10 systems reviewed and were otherwise negative. 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 Surgical Problems: (1) H/O foot surgery (2) H/O inguinal hernia repair (3) History of appendectomy (4) Hx of tonsillectomy (5) S/P cholecystectomy (6) S/P left knee arthroscopy (7) S/P right knee arthroscopy (8) S/P wrist surgery Family History FH: breast cancer MOTHER FH: lung cancer FATHER Social History Smoking Status: Former Smoker Alcohol Use: none Drug Use: none Marital Status: Housing Status: lives with family Occupation Status: retired Current/Historical Medications Scheduled Amlodipine Besylate (Amlodipine Besylate), 10 MG PO QPM Cholecalciferol (Vitamin D 400), 400 UNITS PO HS Lactobacillus Acidophilus (Floranex), 1 TAB PO TID Lansoprazole (Prevacid Solutab), 30 MG PO QPM Levothyroxine Sodium (Levothyroxine Sodium), 100 MCG PO QAM Losartan Potassium (Cozaar), 100 MG PO QAM Metronidazole (Metronidazole), 1 TAB PO TID Vancomycin Hcl (Vancomycin), 1 CAP PO Q6H Scheduled PRN Lorazepam (Lorazepam), 0.5 MG PO BID PRN for Anxiety Allergies Coded Allergies: Iodinated Diagnostic Agents (Verified Allergy, Severe, sob, 07/27/17) Azithromycin (Verified Allergy, Intermediate, RASH, 07/27/17) Levalbuterol Hydrochloride (Verified Allergy, Intermediate, CHEST PAIN, ) Minocycline (Verified Allergy, Intermediate, RASH, 07/27/17) Iodine (Verified Allergy, Mild, IV CONTRAST, 07/27/17) Cefaclor (Verified Allergy, Unknown, HIVES, 07/27/17) Erythromycin (Verified Allergy, Unknown, HIVES, 07/27/17) Nitrofurantoin (Verified Allergy, Unknown, 07/27/17) Phenazopyridine (Verified Allergy, Unknown, sob, 07/27/17) Sulfa Antibiotics (Verified Allergy, Unknown, HIVES, 07/27/17) Levofloxacin (Verified Adverse Reaction, Intermediate, ABDOMINAL PAIN, ) Morphine (Verified Adverse Reaction, Intermediate, EXCESSIVE VOMITING, ) Pt. states excessive vomiting with this medication Physical Exam Vital Signs Date Time Temp Pulse Resp B/P (MAP) Pulse Ox O2 Delivery O2 Flow Rate FiO2 07/27/17 13:30 98 Room Air 07/27/17 11:56 66 18 138/77 98 Room Air 07/27/17 10:02 73 19 147/68 96 Room Air 07/27/17 09:45 77 07/27/17 09:04 36.5 76 20 149/77 95 Room Air Physical Exam GENERAL: Patient is a healthy-appearing well-nourished 71 year old female. HEAD: Normocephalic atraumatic EYES: Ocular movements intact pupils equal and react to light OROPHARYNX mucous membranes are moist no exudates present no erythema or edema present NECK: Supple no nuchal rigidity CHEST: Good equal expansion LUNGS: Clear and equal to auscultation CARDIAC: Normal S1 and S2 ABDOMEN: Soft nontender no guarding BACK: No CVA tenderness EXTREMITIES: No pain upon palpation normal muscle strength in all groups no clubbing cyanosis or edema. Drain in place in buttock. NEURO: Patient is following commands and answering questions appropriately. Alert and oriented x3 Cranial Nerves 2-12 grossly intact Medical Decision & Procedures ER Provider Diagnostic Interpretation: CT results as stated below per my review and radiologist interpretation: ABDOMEN AND PELVIS CT WITH IV CONTRAST CT DOSE: 519.86 mGy.cm HISTORY: Pt c/o dry heaving, c diff TECHNIQUE: Multiaxial CT images of the abdomen and pelvis were performed following the use of intravenous contrast. A dose lowering technique was utilized adhering to the principles of ALARA. COMPARISON STUDY: Abdomen and pelvis CT 07/15/2017. FINDINGS: Bibasilar linear densities consistent with subsegmental atelectasis. Bilateral L5 spondylolysis. Stable hypodense lesions within the liver. These likely represent cysts. The spleen and adrenal glands are unremarkable. Cholecystectomy. The pancreas enhances normally. No hydronephrosis. Subcentimeter hypodense lesions within the right kidney are too small to characterize but statistically represent cysts. No retroperitoneal lymphadenopathy. Small fluid collection at the lower midline incision has improved. There is now a small amount of gas at the midline incision. Mild subcutaneous fat stranding at the lower midline incision. No retroperitoneal lymphadenopathy. The bladder is unremarkable. The uterus and ovaries are within normal limits. Presacral fluid collection has been strained by a transgluteal percutaneous catheter. There is only minimal presacral fluid remaining. Anastomotic suture material at the distal sigmoid. Colonic diverticulosis. There are right-sided inguinal surgical clips noted. No evidence for bowel obstruction. There is also anastomotic suture at the distal small bowel loops. Mild nonspecific fat stranding surrounding the small bowel loops within the mid pelvis. There is also a punctate focus of presacral gas at this location and mild thickening of the small bowel loops best seen on images 271 through 276. No evidence for bowel obstruction. IMPRESSION: 1. Near complete drainage of the presacral fluid collection with a left-sided transgluteal percutaneous catheter. This appears to be in good position. 2. Mild thickening and surrounding fat stranding within the a few small bowel loops within the mid pelvis. There is also a punctate focus of extraluminal gas adjacent to the small bowel loops. This is nonspecific could be due to the recent percutaneous drainage/postoperative change or an ongoing inflammatory/infectious process. One week follow-up is recommended to ensure resolution of these findings. 3. Decrease in size in the small amount of fluid at the lower abdominal incision site. There is now gas at the incision site with may be due to recent postoperative change. Electronically signed by: Chencho Leonardo M.D. 07/27/2017 12:16 PM Dictated Date/Time: 07/27/2017 12:07 PM Laboratory Results 07/27/17 09:55 Red Blood Count 4.60, Mean Corpuscular Volume 83.3, Mean Corpuscular Hemoglobin 27.4, Mean Corpuscular Hemoglobin Concent 32.9, Mean Platelet Volume 9.8, Neutrophils (%) (Auto) 75.6, Lymphocytes (%) (Auto) 16.2, Monocytes (%) (Auto) 5.8, Eosinophils (%) (Auto) 0.8, Basophils (%) (Auto) 0.7, Neutrophils # (Auto) 5.70, Lymphocytes # (Auto) 1.22, Monocytes # (Auto) 0.44, Eosinophils # (Auto) 0.06, Basophils # (Auto) 0.05 07/27/17 09:55 Test 07/27/17 09:55 07/27/17 10:01 07/27/17 12:30 White Blood Count 7.54 K/uL (4.8-10.8) Red Blood Count 4.60 M/uL (4.2-5.4) Hemoglobin 12.6 g/dL (12.0-16.0) Hematocrit 38.3 % (37-47) Mean Corpuscular Volume 83.3 fL (80-100) Mean Corpuscular Hemoglobin 27.4 pg (25-34) Mean Corpuscular Hemoglobin Concent 32.9 g/dl (32-36) Platelet Count 391 K/uL (130-400) Mean Platelet Volume 9.8 fL (7.4-10.4) Neutrophils (%) (Auto) 75.6 % Lymphocytes (%) (Auto) 16.2 % Monocytes (%) (Auto) 5.8 % Eosinophils (%) (Auto) 0.8 % Basophils (%) (Auto) 0.7 % Neutrophils # (Auto) 5.70 K/uL (1.4-6.5) Lymphocytes # (Auto) 1.22 K/uL (1.2-3.4) Monocytes # (Auto) 0.44 K/uL (0.11-0.59) Eosinophils # (Auto) 0.06 K/uL (0-0.5) Basophils # (Auto) 0.05 K/uL (0-0.2) RDW Standard Deviation 44.8 fL (36.4-46.3) RDW Coefficient of Variation 14.7 % (11.5-14.5) Immature Granulocyte % (Auto) 0.9 % Immature Granulocyte # (Auto) 0.07 K/uL (0.00-0.02) Est Creatinine Clear Calc Drug Dose 36.4 ml/min Estimated GFR () 43.0 Estimated GFR (Non- 37.1 BUN/Creatinine Ratio 9.4 (10-20) Calcium Level 8.9 mg/dl (8.5-10.1) Total Bilirubin 0.4 mg/dl (0.2-1) Direct Bilirubin 0.1 mg/dl (0-0.2) Aspartate Amino Transf (AST/SGOT) 15 U/L (15-37) Alanine Aminotransferase (ALT/SGPT) 17 U/L (12-78) Alkaline Phosphatase 132 U/L (45-117) Total Protein 6.9 gm/dl (6.4-8.2) Albumin 3.0 gm/dl (3.4-5.0) Lipase 143 U/L (73-393) Bedside Hemoglobin 12.9 g/dl (12.0-16.0) Bedside Hematocrit 38 % (37-47) Bedside Sodium 141 mEq/L (135-144) Bedside Potassium 2.7 mEq/L (3.3-5.0) Bedside Chloride 100 mEq/L (101-112) Bedside Total CO2 27 mEq/l (24-31) Anion Gap 17.0 mmol/L (16-25) Bedside Blood Urea Nitrogen 12 mg/dl (7-18) Bedside Creatinine 1.3 mg/dl (0.6-1.3) Bedside Glucose (other) 115 mg/dl (70-99) Bedside Ionized Calcium (Dionicio) 1.11 mmol/l (1.12-1.32) Urine Color YELLOW Urine Appearance CLEAR (CLEAR) Urine pH 6.0 (4.5-7.5) Urine Specific [place] 1.019 (1.000-1.030) Urine Protein TRACE (NEG) Urine Glucose (UA) NEG (NEG) Urine Ketones NEG (NEG) Urine Occult Blood NEG (NEG) Urine Nitrite NEG (NEG) Urine Bilirubin NEG (NEG) Urine Urobilinogen NEG (NEG) Urine Leukocyte Esterase MODERATE (NEG) Urine WBC (Auto) >30 /hpf (0-5) Urine RBC (Auto) 0-4 /hpf (0-4) Urine Hyaline Casts (Auto) /lpf (0-5) Urine Epithelial Cells (Auto) >30 /lpf (0-5) Urine Bacteria (Auto) NEG (NEG) Urine Renal Epithelial Cells 5-10 /lpf (0-5) Urine Pathogenic Casts /lpf (0) Urine Yeast (Auto) (NONE PRSENT) Date/Time Source Procedure Growth Status 07/27/17 12:30 Stool C.difficile Toxin B Gene (PCR) - Final No C. difficile toxin B gene detected Complete Labs reviewed by ED physician. Medications Administered Medications (Trade) Dose Ordered Sig/Barb Route Start Time Stop Time Status Last Admin Dose Admin Sodium Chloride 1,000 ml @ 999 mls/hr Q1H1M STAT IV 07/27/17 09:25 07/27/17 10:25 DC 07/27/17 10:04 999 MLS/HR Hydromorphone HCl (Dilaudid Inj) 1 mg NOW STAT IV 07/27/17 09:25 07/27/17 09:27 DC 07/27/17 10:05 1 MG Ondansetron HCl (Zofran Inj) 4 mg NOW STAT IV 07/27/17 09:25 07/27/17 09:28 DC 07/27/17 10:04 4 MG Potassium Chloride (Yesenia Ciel Elix) 40 meq NOW STAT PO 07/27/17 10:21 07/27/17 10:23 DC 07/27/17 12:00 40 MEQ Metoclopramide HCl (Reglan Inj) 10 mg NOW STAT IV 07/27/17 10:21 07/27/17 10:23 DC 07/27/17 12:00 10 MG Potassium Chloride (Yesenia Ciel Elix) 40 meq NOW STAT PO 07/27/17 12:11 07/27/17 12:12 DC 07/27/17 13:12 40 MEQ Prochlorperazine Edisylate (Compazine Inj) 10 mg NOW STAT IV 07/27/17 12:11 07/27/17 12:12 DC 07/27/17 13:12 10 MG Diphenhydramine HCl (Benadryl Inj) 50 mg NOW STAT IV 07/27/17 12:11 07/27/17 12:12 DC 07/27/17 13:12 50 MG ED Course 0920: Past medical records reviewed. The patient was evaluated in room B11B. A complete history and physical examination was performed. 0925: Ordered Zofran Inj 4 mg IV, Dilaudid Inj 1 mg IV, NSS 1000 ml @ 999 mls/ hr IV. 1021: Ordered Reglan Inj 10 mg IV, Yesenia Ciel Elix 40 meq PO. 1211: Ordered Benadryl Inj 50 mg IV, Compazine Inj 10 mg IV. 1309: Upon reexamination the patient is resting. I discussed results and treatment plan with the patient. She verbalizes agreement and understanding. The patient will be evaluated for further management. 1312: I discussed the patient's case with Dr. Wendy Nugent hog stomach preparer, he has agreed to evaluate the patient for further management and care. Medical Decision Differential diagnosis: Etiologies such as appendicitis, diverticulitis, PUD, biliary pathology, UTI, pancreatitis, obstruction, mesenteric ischemia, aortic pathology, infections, inflammatory bowel disease, renal colic, as well as others were entertained. This is a 71-year-old female who presents emergency department complaining of being unable to keep her medicine down for her C. difficile. The patient has had a difficult course lately and has had multiple surgeries for her diverticulitis. She was given normal saline bolus here in the emergency department along with multiple doses of nausea medication including Zofran and Reglan and potassium. Based on the patient's intractable nausea I did discuss the case with the hospitalist service who agreed to admit the patient. Patient family were in agreement with the treatment plan. Medication Reconcilliation Current Medication List: was personally reviewed by me Blood Pressure Screening Patient's blood pressure: Elevated blood pressure Blood pressure disposition: Elevated BP felt to be situational Consults Time Called: 1310 Consulting Physician: Dr. Wendy Grossman hog stomach preparer Returned Call: 1312 I discussed the patient's case with Dr. Wendy Nugent hog stomach preparer, he has agreed to evaluate the patient for further management and care. Impression Primary Impression: Intractable vomiting Additional Impression: Clostridium difficile infection Scribe Attestation The scribe's documentation has been prepared under my direction and personally reviewed by me in its entirety. I confirm that the note above accurately reflects all work, treatment, procedures, and medical decision making performed by me. Departure Information Dispostion Being Evaluated By Hospitalist Referrals No Doctor, Assigned (PCP) Patient Instructions My [facility] Problem Qualifiers Primary Impression: Intractable vomiting Vomiting type: unspecified Nausea presence: with nausea Qualified Codes: R11.2 - Nausea with vomiting, unspecified
[2017-07-27] MEDS ORDERED: OPTIRAY 320 IV PRN (09:45)
[2017-07-27 10:04] LABS: BASO % 0.7 %; BASO ABS # 0.05 K/uL (0-0.2); COMPLETE YES; EOS % 0.8 %; HEMATOCRIT 38.3 % (37-47); IG% 0.9 %; LYMPH % 16.2 %; LYMPH ABS # 1.22 K/uL (1.2-3.4); MEAN CELL VOLUME 83.3 fL (80-100); MEAN CORPUSCULAR HEMOGLOBIN 27.4 pg (25-34); MEAN CORPUSCULAR HGB CONC 32.9 g/dl (32-36); MEAN PLATELET VOLUME 9.8 fL (7.4-10.4); MONO % 5.8 %; NEUT % 75.6 %; PLATELET COUNT 391 K/uL (130-400); WHITE BLOOD COUNT 7.54 K/uL (4.8-10.8)
[2017-07-27 10:14] LABS: ISTAT CREATININE 1.3 mg/dl (0.6-1.3); ISTAT HEMOGLOBIN 12.9 g/dl (12.0-16.0); ISTAT IONIZED CALCIUM 1.11 mmol/l (1.12-1.32)
[2017-07-27] MEDS ORDERED: POTASSIUM CHLORIDE 20 MEQ/15 ML UDC PO STA ×2 (10:21→12:11)
[2017-07-27] MEDS ORDERED: METOCLOPRAMIDE HCL INJ 5 MG/ML 2 ML VIAL IV STA (10:21)
[2017-07-27 10:26] LABS: BUN/CREATININE RATIO 9.4 (10-20); CALCIUM 8.9 mg/dl (8.5-10.1); CREATININE 1.41 mg/dl (0.60-1.20); POTASSIUM 2.7 mmol/L (3.5-5.1)
[2017-07-27] MEDS ORDERED: DiphenhydrAMINE HCL 50 MG/ML VIAL IV STA (12:11)
[2017-07-27] MEDS ORDERED: PROCHLORPERAZINE 5 MG/ML 2 ML VIAL IV STA (12:11)
--- NOTE | 2017-07-27 12:18 | DIAGNOSTIC IMAGING REPORT ---
ABDOMEN AND PELVIS CT WITH IV CONTRAST CT DOSE: 519.86 mGy.cm HISTORY: Pt c/o dry heaving, c diff TECHNIQUE: Multiaxial CT images of the abdomen and pelvis were performed following the use of intravenous contrast. A dose lowering technique was utilized adhering to the principles of ALARA. COMPARISON STUDY: Abdomen and pelvis CT 07/15/2017. FINDINGS: Bibasilar linear densities consistent with subsegmental atelectasis. Bilateral L5 spondylolysis. Stable hypodense lesions within the liver. These likely represent cysts. The spleen and adrenal glands are unremarkable. Cholecystectomy. The pancreas enhances normally. No hydronephrosis. Subcentimeter hypodense lesions within the right kidney are too small to characterize but statistically represent cysts. No retroperitoneal lymphadenopathy. Small fluid collection at the lower midline incision has improved. There is now a small amount of gas at the midline incision. Mild subcutaneous fat stranding at the lower midline incision. No retroperitoneal lymphadenopathy. The bladder is unremarkable. The uterus and ovaries are within normal limits. Presacral fluid collection has been strained by a transgluteal percutaneous catheter. There is only minimal presacral fluid remaining. Anastomotic suture material at the distal sigmoid. Colonic diverticulosis. There are right-sided inguinal surgical clips noted. No evidence for bowel obstruction. There is also anastomotic suture at the distal small bowel loops. Mild nonspecific fat stranding surrounding the small bowel loops within the mid pelvis. There is also a punctate focus of presacral gas at this location and mild thickening of the small bowel loops best seen on images 271 through 276. No evidence for bowel obstruction. IMPRESSION: 1. Near complete drainage of the presacral fluid collection with a left-sided transgluteal percutaneous catheter. This appears to be in good position. 2. Mild thickening and surrounding fat stranding within the a few small bowel loops within the mid pelvis. There is also a punctate focus of extraluminal gas adjacent to the small bowel loops. This is nonspecific could be due to the recent percutaneous drainage/postoperative change or an ongoing inflammatory/infectious process. One week follow-up is recommended to ensure resolution of these findings. 3. Decrease in size in the small amount of fluid at the lower abdominal incision site. There is now gas at the incision site with may be due to recent postoperative change. Electronically signed by: Chencho Leonardo M.D. 07/27/2017 12:16 PM Dictated Date/Time: 07/27/2017 12:07 PM
[2017-07-27 13:16] LABS: URINE APPEARANCE CLEAR (CLEAR); URINE BILIRUBIN NEG (NEG); URINE COLOR YELLOW; URINE EPITHELIAL CELL AUTO >30 /lpf (0-5); URINE NITRITE NEG (NEG); URINE SPECIFIC GRAVITY 1.019 (1.000-1.030); UROBILINOGEN NEG (NEG)
--- NOTE | 2017-07-27 13:23 | History and Physical ---
History & Physical Date & Time of Service: Jul 27, 2017 at 13:23 . Chief Complaint: severe diarrhea . Primary Care Physician: Sophie Mazariegos M.D. . History of Present Illness Source: patient, family, clinic records, hospital records 71 [address] followed by Dr[address] Mazariegos. History of hypertension and complicated diverticular disease. Developed acute diverticulitis with microperforation in May 2015. Managed nonsurgically with bowel rest and antibiotics. Discharged to home. Returned to ED about a week later with abdominal pain and found to have pelvic abscesses. Transferred to [facility] for availability of Interventional Radiology for drainage. Subsequent admissions for recurrent pelvic abscesses, recurrent acute diverticulitis, C diff in 2015 and 2016. Developed enterovaginal fistula. Laparoscopic hand assisted low anterior sigmoid resection with small bowel resection performed at [facility] 07/07/17. Discharged to home 07/11/17. Readmitted to [facility] 07/16/17 with abscesses of presacral pelvis and anterior abdominal wall. Underwent IR drainage of pelvic abscess as well as I&D of abdominal wall abscess. Culture from abdominal abscess grew E coli, resistant to ampicillin, quinolones , and gentamicin. Discharged 07/21/17 with IR drain and antibiotics. DC meds included vancomycin for C diff and cefixime + metronidazole for abscesses. She did not take the cefixime because of prior allergy to cephalosporins. Experienced severe diarrhea which she attributed to the metronidazole, so she stopped taking it after a few days. She was able to take the oral vancomycin. Tried to resume metronidazole, but again had frequent watery diarrhea without blood. Took oxycodone for left buttock pain where drain located, but developed nausea and vomiting that she attributed to the oxycodone. Came to ED today because of ongoing frequent diarrhea and progressive weakness. . Past Medical/Surgical History Acute and Chronic Medical Problems: (2) Suarez esophagus Status: Chronic (3) Diarrhea Status: Resolved (4) Diverticulitis Permanent Comment: multiple episodes since 2014 one episode with abscess requiring drainage; no other surgeries follows with [facility] Rectal Surgery Status: Chronic (5) GERD (gastroesophageal reflux disease) Status: Chronic (6) HLD (hyperlipidemia) Status: Chronic (7) HTN (hypertension) Status: Chronic (8) Hypothyroidism Status: Chronic (10) Intraductal carcinoma of left breast, history of Permanent Comment: Abnormal left breast mammogram Status post stereotactic biopsy 11/14/2015 revealing DCIS grade 1 Estrogen receptor positive and progesterone receptor positive Status post needle localization lumpectomy 12/20/2015 Stage pTis pNX Status post completion of radiation therapy 03/01/2016 received 3850 cGy utilizing accelerated partial breast irradiation. Status: Chronic Surgical Problems: (1) H/O foot surgery Status: Chronic (2) H/O inguinal hernia repair Status: Chronic (3) History of appendectomy Status: Chronic (4) Hx of tonsillectomy Status: Chronic (5) S/P cholecystectomy Status: Chronic (6) S/P left knee arthroscopy Status: Chronic (7) S/P right knee arthroscopy Status: Chronic (8) S/P wrist surgery Permanent Comment: left Status: Chronic (9) S/P low anterior resection sigmoid colon and partial resection small bowel Status: Chronic . Family History FH: breast cancer MOTHER FH: lung cancer FATHER Social History Smoking Status: Former Smoker Alcohol Use: none Drug Use: none Marital Status: Housing status: lives with significant other Occupational Status: retired Immunizations History of Influenza Vaccine: Yes Influenza Vaccine Date: Aug 07, 2016 History of Tetanus Vaccine?: Unknown History of Pneumococcal: Unknown History of Hepatitis B Vaccine: No Multi-Drug Resistant Organisms History of MDRO: No Allergies Coded Allergies: Iodinated Diagnostic Agents (Verified Allergy, Severe, sob, 07/27/17) Azithromycin (Verified Allergy, Intermediate, RASH, 07/27/17) Levalbuterol Hydrochloride (Verified Allergy, Intermediate, CHEST PAIN, ) Minocycline (Verified Allergy, Intermediate, RASH, 07/27/17) Iodine (Verified Allergy, Mild, IV CONTRAST, 07/27/17) Cefaclor (Verified Allergy, Unknown, HIVES, 07/27/17) Erythromycin (Verified Allergy, Unknown, HIVES, 07/27/17) Nitrofurantoin (Verified Allergy, Unknown, 07/27/17) Phenazopyridine (Verified Allergy, Unknown, sob, 07/27/17) Sulfa Antibiotics (Verified Allergy, Unknown, HIVES, 07/27/17) Levofloxacin (Verified Adverse Reaction, Intermediate, ABDOMINAL PAIN, ) Morphine (Verified Adverse Reaction, Intermediate, EXCESSIVE VOMITING, ) Pt. states excessive vomiting with this medication Home Medications Scheduled Amlodipine Besylate (Amlodipine Besylate), 10 MG PO QPM Cholecalciferol (Vitamin D 400), 400 UNITS PO HS Lactobacillus Acidophilus (Floranex), 1 TAB PO TID Lansoprazole (Prevacid Solutab), 30 MG PO QPM Levothyroxine Sodium (Levothyroxine Sodium), 100 MCG PO QAM Losartan Potassium (Cozaar), 100 MG PO QAM [metronidazole susp], 500 MG PO TID [vancomycin susp], 125 MG PO QID Scheduled PRN Lorazepam (Lorazepam), 0.5 MG PO HS PRN for insomnia Review of Systems Constitutional: + weight loss, No fever Eyes: No worsening of vision, No diplopia ENT: No nasal symptoms, No sore throat Respiratory: No cough, No shortness of breath Cardiovascular: No chest pain, No edema Abdomen: + problem reported (as noted in HPI) Musculoskeletal: No joint pain Genitourinary - Female: No dysuria, No hematuria Neurologic: + problem reported (no headaches) Endocrine: + fatigue, No excessive urination Hematologic / Lymphatic: No abnormal bleeding/bruising Integumentary: No rash Physical Exam Vital Signs Date Time Temp Pulse Resp B/P (MAP) Pulse Ox O2 Delivery O2 Flow Rate FiO2 07/27/17 11:56 66 18 138/77 98 Room Air 07/27/17 10:02 73 19 147/68 96 Room Air 07/27/17 09:45 77 07/27/17 09:04 36.5 76 20 149/77 95 Room Air General Appearance: WD/WN, no apparent distress Head: normocephalic, atraumatic Eyes: normal inspection, PERRL, EOMI, sclerae normal ENT: normal ENT inspection, hearing grossly normal, pharynx normal Neck: supple, no adenopathy, thyroid normal, trachea midline Respiratory/Chest: lungs clear, no respiratory distress, no accessory muscle use Cardiovascular: regular rate, rhythm, no edema, no gallop, no JVD, no murmur, normal peripheral pulses Abdomen/GI: + pertinent finding (+ BS, soft, nontender; surgical incision lower abdomen packed with gauze, no surrounding erythema; no palpable masses) Extremities/Musculoskelatal: normal inspection, no calf tenderness, + pertinent finding (surgical drain exiting left buttock) Neurologic/Psych: platform attendant II-XII nml as tested (PERRL, EOMI, no facial palsy, no dysarathria), no motor/sensory deficits (motor grossly intact), alert, oriented x 3 Skin: normal color, warm/dry, no rash Lymphatic: no adenopathy (cervical) Diagnostics Laboratory Results Results Past 24 Hours Test 07/27/17 09:55 07/27/17 10:01 07/27/17 12:30 Range/Units White Blood Count 7.54 4.8-10.8 K/uL Red Blood Count 4.60 4.2-5.4 M/uL Hemoglobin 12.6 12.0-16.0 g/dL Hematocrit 38.3 37-47 % Mean Corpuscular Volume 83.3 80-100 fL Mean Corpuscular Hemoglobin 27.4 25-34 pg Mean Corpuscular Hemoglobin Concent 32.9 32-36 g/dl Platelet Count 391 130-400 K/uL Mean Platelet Volume 9.8 7.4-10.4 fL Neutrophils (%) (Auto) 75.6 % Lymphocytes (%) (Auto) 16.2 % Monocytes (%) (Auto) 5.8 % Eosinophils (%) (Auto) 0.8 % Basophils (%) (Auto) 0.7 % Neutrophils # (Auto) 5.70 1.4-6.5 K/uL Lymphocytes # (Auto) 1.22 1.2-3.4 K/uL Monocytes # (Auto) 0.44 0.11-0.59 K/uL Eosinophils # (Auto) 0.06 0-0.5 K/uL Basophils # (Auto) 0.05 0-0.2 K/uL RDW Standard Deviation 44.8 36.4-46.3 fL RDW Coefficient of Variation 14.7 11.5-14.5 % Immature Granulocyte % (Auto) 0.9 % Immature Granulocyte # (Auto) 0.07 0.00-0.02 K/uL Sodium Level 140 136-145 mmol/L Potassium Level 2.7 3.5-5.1 mmol/L Chloride Level 102 98-107 mmol/L Carbon Dioxide Level 27 21-32 mmol/L Anion Gap 11.0 17.0 16-25 mmol/L Blood Urea Nitrogen 13 7-18 mg/dl Creatinine 1.41 0.60-1.20 mg/dl Est Creatinine Clear Calc Drug Dose 36.4 ml/min Estimated GFR () 43.0 Estimated GFR (Non- 37.1 BUN/Creatinine Ratio 9.4 10-20 Random Glucose 118 70-99 mg/dl Calcium Level 8.9 8.5-10.1 mg/dl Total Bilirubin 0.4 0.2-1 mg/dl Direct Bilirubin 0.1 0-0.2 mg/dl Aspartate Amino Transf (AST/SGOT) 15 15-37 U/L Alanine Aminotransferase (ALT/SGPT) 17 12-78 U/L Alkaline Phosphatase 132 45-117 U/L Total Protein 6.9 6.4-8.2 gm/dl Albumin 3.0 3.4-5.0 gm/dl Lipase 143 73-393 U/L Bedside Hemoglobin 12.9 12.0-16.0 g/dl Bedside Hematocrit 38 37-47 % Bedside Sodium 141 135-144 mEq/L Bedside Potassium 2.7 3.3-5.0 mEq/L Bedside Chloride 100 101-112 mEq/L Bedside Total CO2 27 24-31 mEq/l Bedside Blood Urea Nitrogen 12 7-18 mg/dl Bedside Creatinine 1.3 0.6-1.3 mg/dl Bedside Glucose (other) 115 70-99 mg/dl Bedside Ionized Calcium (Dionicio) 1.11 1.12-1.32 mmol/l Microbiology Results 07/27/17 C.difficile Toxin B Gene (PCR), Received Pending 07/27/17 Shiga Toxin Test, Received Pending 07/27/17 Stool Culture, Received Pending Diagnostic Radiology ABDOMEN AND PELVIS CT WITH IV CONTRAST FINDINGS: Bibasilar linear densities consistent with subsegmental atelectasis. Bilateral L5 spondylolysis. Stable hypodense lesions within the liver. These likely represent cysts. The spleen and adrenal glands are unremarkable. Cholecystectomy. The pancreas enhances normally. No hydronephrosis. Subcentimeter hypodense lesions within the right kidney are too small to characterize but statistically represent cysts. No retroperitoneal lymphadenopathy. Small fluid collection at the lower midline incision has improved. There is now a small amount of gas at the midline incision. Mild subcutaneous fat stranding at the lower midline incision. No retroperitoneal lymphadenopathy. The bladder is unremarkable. The uterus and ovaries are within normal limits. Presacral fluid collection has been strained by a transgluteal percutaneous catheter. There is only minimal presacral fluid remaining. Anastomotic suture material at the distal sigmoid. Colonic diverticulosis. There are right-sided inguinal surgical clips noted. No evidence for bowel obstruction. There is also anastomotic suture at the distal small bowel loops. Mild nonspecific fat stranding surrounding the small bowel loops within the mid pelvis. There is also a punctate focus of presacral gas at this location and mild thickening of the small bowel loops best seen on images 271 through 276. No evidence for bowel obstruction. IMPRESSION: 1. Near complete drainage of the presacral fluid collection with a left-sided transgluteal percutaneous catheter. This appears to be in good position. 2. Mild thickening and surrounding fat stranding within the a few small bowel loops within the mid pelvis. There is also a punctate focus of extraluminal gas adjacent to the small bowel loops. This is nonspecific could be due to the recent percutaneous drainage/postoperative change or an ongoing inflammatory/infectious process. One week follow-up is recommended to ensure resolution of these findings. 3. Decrease in size in the small amount of fluid at the lower abdominal incision site. There is now gas at the incision site with may be due to recent postoperative change. Electronically signed by: Chencho Leonardo M.D. 07/27/2017 12:16 PM Dictated Date/Time: 07/27/2017 12:07 PM . Impression Assessment and Plan SEVERE DIARRHEA Recently diagnosed with C diff at [facility]. Treated with oral vancomycin. Has received about 2 weeks of therapy, but has persistent diarrhea. May have persistent C diff. Check stool culture to screen for other enteric infections. Patient attributes the diarrhea to metronidazole which is certainly possible; DC metronidazole. History of enterovaginal fistula. Consider enterovesical fistula, although unlikely in abscess of feculent urine. Consult GI for their input. COMPLICATED DIVERTICULITIS Multiple episodes of pelvic abscesses and recurrent diverticulitis since 2014. S/P low anterior resection of sigmoid colon and partial resection of small bowel at [facility] 07/07/17. Developed presacral and abdominal wall abscesses. I&D of abdominal wall abscess performed; culture grew E coli. IR drainage of pelvic abscess performed. Discharged on cefixime and metronidazole. Did not take cefixime due to cephalosporin allergy. Tried to take metronidazole, but did not tolerate it due to frequent diarrhea. CT of abdomen and pelvis shows near complete drainage of presacral fluid collection with transgluteal catheter. Continue packing of abdominal wound BID. Continue flushing pelvic drain BID. No apparent need for systemic antibiotics at this time- afebrile, no leukocytosis, CT improved. Coordinate care with [facility] providers. SEVERE HYPOKALEMIA Serum K 2.7. Hypokalemia secondary to severe diarrhea. Check Mg. Replace. Follow. HYPERTENSION Continue amlodipine and losartan. GERD Continue PPI. HYPOTHYROIDISM Continue levothyroxine. VTE PROPHYLAXIS SQ enoxaparin. Ambulate as able. RESUSCITATION STATUS Full resuscitation. DISPOSITION To be determined. Family Medicine follow-up with Dr. Mazariegos. . VTE Prophylaxis Given or contraindicated: Enoxaparin (Lovenox)SQ
[2017-07-27 13:28] LABS: MANUAL MICROSCOPIC REQUIRED? NO; REVIEW REQ? YES
[2017-07-27 13:30] VITALS: O2SAT 98; Ht 172.7 cm; Wt 69.0 kg
[2017-07-27] MEDS ORDERED: PNEUMOCOCCAL ADMINISTRATION CHARGE ONE (15:15)
[2017-07-27] MEDS ORDERED: PNEUMOCOCCAL POLYSACCHARIDES 25 MCG/0.5 ML VIAL/SYR IM. ONE (15:15)
[2017-07-27] MEDS ORDERED: D5W AND 1/2NSS + 40MEQ KCL 1,000 ML IV SCH (17:00)
--- NOTE | 2017-07-27 18:45 | DIAGNOSTIC IMAGING REPORT ---
CHEST ONE VIEW PORTABLE HISTORY: PICC PLACEMENT TRACY (UNABLE TO UTILIZE VPS SENSOR) COMPARISON: Chest 02/23/2017. FINDINGS: No pneumothorax. No pleural effusions. The heart remains mildly enlarged. The lungs are clear. The right PICC is curled at the proximal SVC. This likely resides within the azygos vein. This should be pulled back by approximately 2 to 3 cm. IMPRESSION: The right PICC is curled at the proximal SVC. This likely resides within the azygos vein. This should be pulled back by approximately 2 to 3 cm. Electronically signed by: Chencho Leonardo M.D. 07/27/2017 6:44 PM Dictated Date/Time: 07/27/2017 6:43 PM
[2017-07-27 19:37] VITALS: BP 143/69; PULSE 67; TEMP 36.5; O2SAT 94
[2017-07-27 20:13] LABS: PARTIAL THROMBOPLASTIN RATIO 0.9; PROTHROMBIN TIME (PATIENT) 10.7 SECONDS (9.0-12.0)
[2017-07-27 20:17] LABS: MAGNESIUM 1.6 mg/dl (1.8-2.4)
[2017-07-27] MEDS ORDERED: vancomycin susp PO (20:52)
[2017-07-27] MEDS ORDERED: METRONIDAZOLE PO (20:52)
[2017-07-27] MEDS: POTASSIUM CHLORIDE IV SCH (21:37)
[2017-07-27] MEDS: MAG SULFATE IV SCH (21:37)
[2017-07-27] MEDS: D5W IV SCH (21:37)
[2017-07-27] MEDS: [UNRECOGNIZED DRUG - OTHER] IV SCH (21:37)
[2017-07-27] MEDS: VANCOMYCIN HCL 125 MG/2.5ML SOLN PO SCH (21:48)
[2017-07-27] MEDS: AMLODIPINE BESYLATE 5 MG TAB PO SCH (21:49)
[2017-07-27] MEDS: RASPBERRY SYRUP 5 ML UDP PO SCH (21:49)
[2017-07-27] MEDS: LANSOPRAZOLE SOLUTAB 30 MG PO SCH (21:49)
[2017-07-28] VITALS (8 sets, daily range): BP systolic 123–155; BP diastolic 58–74; PULSE 63–75; TEMP 36.3–36.9; O2SAT 94–96
[2017-07-28] MEDS ORDERED: TRAMADOL HCL 50 MG TAB PO PRN (04:30)
[2017-07-28 06:20] LABS: HEMATOCRIT 33.8 % (37-47); MEAN CELL VOLUME 84.3 fL (80-100); MEAN CORPUSCULAR HEMOGLOBIN 26.7 pg (25-34); MEAN CORPUSCULAR HGB CONC 31.7 g/dl (32-36); MEAN PLATELET VOLUME 9.7 fL (7.4-10.4); PLATELET COUNT 318 K/uL (130-400); RED BLOOD COUNT 4.01 M/uL (4.2-5.4); WHITE BLOOD COUNT 5.61 K/uL (4.8-10.8)
[2017-07-28] MEDS: LEVOTHYROXINE 100 MCG TAB PO SCH (06:27)
[2017-07-28 07:17] LABS: BUN/CREATININE RATIO 8.9 (10-20); CALCIUM 8.4 mg/dl (8.5-10.1); CREATININE 1.14 mg/dl (0.60-1.20); MAGNESIUM 2.1 mg/dl (1.8-2.4); POTASSIUM 3.7 mmol/L (3.5-5.1)
[2017-07-28] MEDS: POTASSIUM CHLORIDE IV SCH ×2 (08:13→18:48)
[2017-07-28] MEDS: [UNRECOGNIZED DRUG - OTHER] IV SCH ×2 (08:13→18:48)
[2017-07-28] MEDS: D5W IV SCH ×2 (08:13→18:48)
[2017-07-28] MEDS: MAG SULFATE IV SCH ×2 (08:13→18:48)
[2017-07-28] MEDS: RASPBERRY SYRUP 5 ML UDP PO SCH ×4 (08:14→20:32)
[2017-07-28] MEDS: VANCOMYCIN HCL 125 MG/2.5ML SOLN PO SCH ×4 (08:14→20:32)
[2017-07-28] MEDS: ENOXAPARIN 40 MG/0.4 ML SYR SQ SCH (08:15)
[2017-07-28] MEDS: LOSARTAN POTASSIUM 50 MG TAB PO SCH (08:15)
[2017-07-28] MEDS: LORAZEPAM 0.5 MG TAB PO PRN (10:01)
--- NOTE | 2017-07-28 15:11 | Medical Consult ---
Consultation Note Date of Service Jul 28, 2017. Consultation Note Attg add: I interviewed and examined pt, reviewed chart and labs. Pt s/p recent surgery for complicated diverticulitis, s/p recent re-admission for post- op abscesses treated at [facility] with IR drainage and oral abx. She also has C diff. She is re-admitted for diarrhea, weakness. She is afeb, no leukocytosis , and CT shows resolution of prior abscesses. Given resolution of prior abscess with IR drain and C diff infection, would try to minimize abx exposure -- as her absecess seems to have resolved and she has no evidence of sepsis, would not resume cefixime or Flagyl. Consider drain study/fistulogram and d/c drains if no fistulae. Her diarrhea is likely multifactorial - from recent surgery, abx malnutrition. Cont Vanco for rx of diarrhea; may consider small doses of bile acid resin due to diarrhea.
--- NOTE | 2017-07-28 15:35 | Gastrointestinal Consultation ---
Gastrointestinal Consultation Date of Consultation: Jul 28, 2017 Attending Physician: Barber Nguyen Consulting Physician: Cayla Cat Reason for Consultation: Severe diarrhea History of Present Illness Patient is a 71 year old female seen for severe diarrhea. Hx of recurrent diverticulitis w microperforation managed w antibx and bowel rest. Underwent lower anterior sigmoid resection w small bowel resection at [facility] admitted from -07/11. She developed pelvic and enterovaginal fistula later on. Readmitted to [facility] from 07/06-07/21 for abscesses development and underwent IR drainage of these. She was found to have + Cdiff during this admission as well. DC'd home on Cefixime and Flagyl, but didn't take Cefixime due to allergy to cephalosporins and she felt that Flagyl made her diarrhea worse thus stopped it. She is currently on Vancomycin. She went to [facility] ED on 07/27 w c/o ongoing diarrhea, weakness and pain on buttock from abscess drain in place. Labs w/o leukocytosis, CMP showed low K 2.7, now improlved to 3.7. LFTs and Lipase normal. Stool cx and Cdiff negative. Norovirus and Giardia pending. CT abd/pelvis w IV contrast: 1. Near complete drainage of the presacral fluid collection with a left-sided transgluteal percutaneous catheter. This appears to be in good position. 2. Mild thickening and surrounding fat stranding within the a few small bowel loops within the mid pelvis. There is also a punctate focus of extraluminal gas adjacent to the small bowel loops. This is nonspecific could be due to the recent percutaneous drainage/postoperative change or an ongoing inflammatory/ infectious process. One week follow-up is recommended to ensure resolution of these findings. 3. Decrease in size in the small amount of fluid at the lower abdominal incision site. There is now gas at the incision site with may be due to recent postoperative change. Past Medical/Surgical History Medical Problems: (1) C. difficile colitis Status: Acute (2) C. difficile diarrhea Status: Acute (3) Clostridium difficile infection Status: Acute (4) Costochondritis Status: Acute (5) Dehydration Status: Acute (6) Dysuria Status: Acute (7) Intractable vomiting Status: Acute (8) Left shoulder pain Status: Acute (9) Right lower quadrant abdominal pain Status: Acute (10) RUQ pain Status: Acute (11) UTI (urinary tract infection) Status: Acute (12) Wound drainage Status: Acute Past Medical History: See above, also Suarez's esophagus, GERD, hyperlipidemia, HTN, hypothyroidism, L breast ca completed XRT Past Surgical History: Foot surgery, Inguinal hernia repair, appendectomy, tonsillectomy, cholecystectomy, bilateral knee arthroscopy, L wrist surgery, as above. Family History FH: breast cancer MOTHER FH: lung cancer FATHER Social History Smoking Status: Former Smoker Alcohol Use: none Drug Use: none Marital Status: Housing Status: lives with family Occupation Status: retired Allergies Coded Allergies: Iodinated Diagnostic Agents (Verified Allergy, Severe, sob, 07/27/17) Azithromycin (Verified Allergy, Intermediate, RASH, 07/27/17) Levalbuterol Hydrochloride (Verified Allergy, Intermediate, CHEST PAIN, ) Minocycline (Verified Allergy, Intermediate, RASH, 07/27/17) Iodine (Verified Allergy, Mild, IV CONTRAST, 07/27/17) Cefaclor (Verified Allergy, Unknown, HIVES, 07/27/17) Erythromycin (Verified Allergy, Unknown, HIVES, 07/27/17) Nitrofurantoin (Verified Allergy, Unknown, 07/27/17) Phenazopyridine (Verified Allergy, Unknown, sob, 07/27/17) Sulfa Antibiotics (Verified Allergy, Unknown, HIVES, 07/27/17) Levofloxacin (Verified Adverse Reaction, Intermediate, ABDOMINAL PAIN, ) Morphine (Verified Adverse Reaction, Intermediate, EXCESSIVE VOMITING, ) Pt. states excessive vomiting with this medication Current Medications Home Meds and Scripts Medications Dose Route/Sig Max Daily Dose Days Date Category Dose Instructions [vancomycin susp] 100 mg/ml Susp 125 Mg PO QID 07/27/17 Reported [metronidazole susp] 50 mg/ml Susp 500 Mg PO TID 07/27/17 Reported Floranex (Lactobacillus Acidophilus) 1 Tab Tab 1 Tab PO TID 07/27/17 Reported Amlodipine Besylate 5 Mg Tab 10 Mg PO QPM 02/09/17 Reported 2 tablet dose Vitamin D 400 (Cholecalciferol) 400 Unit Chw 400 Units PO HS 02/09/17 Reported Lorazepam 0.5 Mg Tab 0.5 Mg PO HS PRN 05/26/14 Reported Prevacid Solutab (Lansoprazole) 30 Mg [place] 30 Mg PO QPM 05/26/14 Reported Levothyroxine Sodium 100 Mcg Tab 100 Mcg PO QAM 05/26/14 Reported Cozaar (Losartan Potassium) 50 Mg Tab 100 Mg PO QAM 07/15/13 Reported 2 tablet dose Review of Systems Constitutional: + weakness, No fever, No chills Respiratory: No cough, No shortness of breath Cardiac: No chest pain Abdomen: + diarrhea, No pain, No nausea, No vomiting Skin: + problem reported (L buttock pain related to drain placement for abscess drainage) Physical Exam Date Time Temp Pulse Resp B/P (MAP) Pulse Ox O2 Delivery O2 Flow Rate FiO2 07/28/17 12:00 Room Air 07/28/17 11:59 36.8 75 20 155/66 (95) 94 07/28/17 08:01 36.8 65 18 123/61 (81) 95 07/28/17 08:00 Room Air 07/28/17 04:34 36.3 66 18 137/64 (88) 95 Room Air 07/28/17 04:00 Room Air 07/28/17 00:05 36.9 63 18 150/74 (99) 94 Room Air 07/28/17 00:00 Room Air 07/27/17 20:00 Room Air 07/27/17 19:37 36.5 67 16 143/69 (93) 94 Room Air 07/27/17 16:19 Room Air General Appearance: WD/WN, no apparent distress Eyes: normal inspection, PERRL, EOMI Neck: supple, no JVD, trachea midline Respiratory/Chest: normal breath sounds, no respiratory distress, no accessory muscle use Cardiovascular: regular rate, rhythm, no gallop, no murmur Abdomen: normal bowel sounds, non tender, soft Extremities: normal inspection, no pedal edema, no calf tenderness Neurologic/Psych: alert, normal mood/affect, oriented x 3 Skin: normal color, no jaundice, no rash Laboratory Results Last 24 Hours Test 07/27/17 19:26 07/28/17 06:07 Prothrombin Time 10.7 SECONDS Prothromb Time International Ratio 1.0 Activated Partial Thromboplast Time 24.2 SECONDS Partial Thromboplastin Ratio 0.9 Potassium Level 3.0 mmol/L 3.7 mmol/L Magnesium Level 1.6 mg/dl 2.1 mg/dl White Blood Count 5.61 K/uL Red Blood Count 4.01 M/uL Hemoglobin 10.7 g/dL Hematocrit 33.8 % Mean Corpuscular Volume 84.3 fL Mean Corpuscular Hemoglobin 26.7 pg Mean Corpuscular Hemoglobin Concent 31.7 g/dl RDW Standard Deviation 46.4 fL RDW Coefficient of Variation 15.0 % Platelet Count 318 K/uL Mean Platelet Volume 9.7 fL Sodium Level 140 mmol/L Chloride Level 107 mmol/L Carbon Dioxide Level 25 mmol/L Anion Gap 8.0 mmol/L Blood Urea Nitrogen 10 mg/dl Creatinine 1.14 mg/dl Est Creatinine Clear Calc Drug Dose 45.0 ml/min Estimated GFR () 55.6 Estimated GFR (Non- 48.0 BUN/Creatinine Ratio 8.9 Random Glucose 123 mg/dl Calcium Level 8.4 mg/dl Impression Patient is a 71 year old female admitted w diarrhea, weakness. Hx of complicated diverticulitis s/p sigmoid, and partial small bowel resection, complicated by abdominal and pelvic abscesses, ? enterovaginal fistula development. Repeat CT showed abscesses are smaller in sizes since IR drainage. L buttock drain still in place. Plan - Continue Vancomycin 125mg QID x 14 days - Questran 2g daily - Ok to start CL diet
[2017-07-28] MEDS: ONDANSETRON INJ 2 MG/ML 2 ML VIAL IV PRN (18:48)
[2017-07-28] MEDS: AMLODIPINE BESYLATE 5 MG TAB PO SCH (20:32)
[2017-07-28] MEDS: LANSOPRAZOLE SOLUTAB 30 MG PO SCH (20:33)
[2017-07-28] MEDS ORDERED: CHOLESTYRAMINE LIGHT 4 GM PKT PO SCH (22:00)
--- NOTE | 2017-07-28 23:56 | Progress Note ---
Medicine Progress Note Date & Time of Visit: Jul 28, 2017 at 15:20 . Subjective Persistent loose stools, but not as frequent. Nausea improved. No fever. No chest pain. No cough or SOB. Ambulating in room. . Objective Last 8 Hrs Date Time Temp Pulse Resp B/P (MAP) Pulse Ox O2 Delivery O2 Flow Rate FiO2 07/28/17 20:00 94 Room Air 07/28/17 19:47 36.9 65 18 143/63 (89) 94 Room Air 07/28/17 16:18 36.4 66 18 137/58 (84) 96 Room Air 07/28/17 16:00 94 Room Air Physical Exam: General- no distress Neck- no JVD Lungs- clear Heart- RRR Abdomen- + BS, soft, nontender Extremities- no pretibial edema or calf tenderness Neuro- alert Skin- warm & dry . Laboratory Results: Last 24 Hours Test 07/28/17 06:07 White Blood Count 5.61 K/uL Red Blood Count 4.01 M/uL Hemoglobin 10.7 g/dL Hematocrit 33.8 % Mean Corpuscular Volume 84.3 fL Mean Corpuscular Hemoglobin 26.7 pg Mean Corpuscular Hemoglobin Concent 31.7 g/dl RDW Standard Deviation 46.4 fL RDW Coefficient of Variation 15.0 % Platelet Count 318 K/uL Mean Platelet Volume 9.7 fL Sodium Level 140 mmol/L Potassium Level 3.7 mmol/L Chloride Level 107 mmol/L Carbon Dioxide Level 25 mmol/L Anion Gap 8.0 mmol/L Blood Urea Nitrogen 10 mg/dl Creatinine 1.14 mg/dl Est Creatinine Clear Calc Drug Dose 45.0 ml/min Estimated GFR () 55.6 Estimated GFR (Non- 48.0 BUN/Creatinine Ratio 8.9 Random Glucose 123 mg/dl Calcium Level 8.4 mg/dl Magnesium Level 2.1 mg/dl Assessment & Plan SEVERE DIARRHEA Recently diagnosed with C diff [place] [facility] [place] Treated with oral vancomycin. Has received about 2 weeks of therapy, but has persistent diarrhea. May have persistent C diff. Checking stool culture to screen for other enteric infections. Patient attributes the diarrhea to metronidazole which is certainly possible; metronidazole discontinued. GI consulted. Started on cholestyramine. COMPLICATED DIVERTICULITIS Multiple episodes of pelvic abscesses and recurrent diverticulitis since 2014. S/P low anterior resection of sigmoid colon and partial resection of small bowel at [facility] [place]/07/[place]. Developed presacral and abdominal wall abscesses. I&D of abdominal wall abscess performed; culture grew E coli. IR drainage of pelvic abscess performed. CT of abdomen and pelvis 07/27 showed near complete drainage of presacral fluid collection with transgluteal catheter. Continue packing of abdominal wound BID. Continue flushing pelvic drain BID. No apparent need for systemic antibiotics at this time- afebrile, no leukocytosis, CT improved. Coordinate care with other providers. SEVERE HYPOKALEMIA Serum K 2.7 at time of admission. Hypokalemia secondary to severe diarrhea. Replaced. K today = 3.7. Follow. HYPOMAGNESEMIA Mg 1.6 day of admission. Replaced. Mg today = 2.1. Follow. HYPERTENSION Continue amlodipine and losartan. GERD Continue PPI. HYPOTHYROIDISM Continue levothyroxine. VTE PROPHYLAXIS SQ enoxaparin. Ambulate as able. RESUSCITATION STATUS Full resuscitation. DISPOSITION To be determined. Family Medicine follow-up with Dr. Mazariegos. . Current Inpatient Medications: Current Inpatient Medications Medications (Trade) Dose Ordered Sig/Barb Route Start Time Stop Time Status Last Admin Dose Admin Ioversol (Optiray 320) 111 ml UD PRN IV 07/27/17 09:45 07/31/17 09:44 Ondansetron HCl (Zofran Inj) 4 mg Q6H PRN IV 07/27/17 13:30 08/26/17 13:29 07/28/17 18:48 4 MG Magnesium Sulfate 1 gm/Potassium Chloride 40 meq/ Dextrose/Sodium Chloride 1,022 ml @ 50 mls/hr [id number] IV 07/27/17 20:45 08/26/17 20:44 07/28/17 18:48 50 MLS/HR Amlodipine Besylate (Norvasc Tab) 10 mg QPM PO 07/27/17 21:00 08/26/17 20:59 07/28/17 20:32 10 MG Lansoprazole (Prevacid Solutab) 30 mg QPM PO 07/27/17 21:00 08/26/17 20:59 07/28/17 20:33 30 MG Levothyroxine Sodium (Synthroid Tab) 100 mcg DAILYBB PO 07/28/17 06:00 08/27/17 05:59 07/28/17 06:27 100 MCG Lorazepam (Ativan Tab) 0.5 mg HS PRN PO 07/27/17 21:00 08/26/17 20:59 07/28/17 10:01 0.5 MG Losartan Potassium (coZAAR TAB) 100 mg QAM PO 07/28/17 09:00 08/27/17 08:59 07/28/17 08:15 100 MG Vancomycin HCl (Vancomycin Oral Soln) 125 mg QID PO 07/27/17 21:00 08/10/17 20:59 07/28/17 20:32 125 MG Enoxaparin Sodium (Lovenox Inj) 40 mg QAM SQ 07/28/17 09:00 08/27/17 08:59 07/28/17 08:15 40 MG Raspberry (Raspberry Syrup 5ml Cup) 5 ml QID PO 07/27/17 21:00 08/10/17 20:59 07/28/17 20:32 5 ML Tramadol HCl (Ultram Tab) 50 mg Q4H PRN PO 07/28/17 04:30 08/27/17 04:29 07/28/17 06:44 50 MG Cholestyramine Resin (Questran Powder Light) 2 gm DAILY@1000 PO 07/29/17 10:00 08/28/17 09:59
[2017-07-29] VITALS (9 sets, daily range): BP systolic 111–169; BP diastolic 52–90; PULSE 50–76; TEMP 36.4–37; O2SAT 93–97
[2017-07-29] MEDS: LEVOTHYROXINE 100 MCG TAB PO SCH (06:02)
[2017-07-29] MEDS: ONDANSETRON INJ 2 MG/ML 2 ML VIAL IV PRN ×2 (06:02→15:31)
[2017-07-29] MEDS: RASPBERRY SYRUP 5 ML UDP PO SCH ×4 (07:29→21:35)
[2017-07-29] MEDS: LOSARTAN POTASSIUM 50 MG TAB PO SCH (07:29)
[2017-07-29] MEDS: VANCOMYCIN HCL 125 MG/2.5ML SOLN PO SCH ×4 (07:29→21:37)
[2017-07-29] MEDS: ENOXAPARIN 40 MG/0.4 ML SYR SQ SCH (07:30)
[2017-07-29 07:33] LABS: HEMATOCRIT 33.7 % (37-47); MEAN CELL VOLUME 84.7 fL (80-100); MEAN CORPUSCULAR HEMOGLOBIN 27.1 pg (25-34); PLATELET COUNT 314 K/uL (130-400); RED BLOOD COUNT 3.98 M/uL (4.2-5.4)
[2017-07-29 08:09] LABS: BUN/CREATININE RATIO 6.9 (10-20); CALCIUM 8.5 mg/dl (8.5-10.1); CREATININE 0.98 mg/dl (0.60-1.20); MAGNESIUM 2.3 mg/dl (1.8-2.4); POTASSIUM 4.3 mmol/L (3.5-5.1)
[2017-07-29] MEDS ORDERED: NURSING VERBAL MED ORDER ONE (08:45)
[2017-07-29] MEDS ORDERED: ONDANSETRON INJ 2 MG/ML 2 ML VIAL IV ONE (08:45)
[2017-07-29] MEDS: CHOLESTYRAMINE LIGHT 4 GM PKT PO SCH (10:17)
--- NOTE | 2017-07-29 10:25 | Clinical Documentation Query ---
CLINICAL DOCUMENTATION QUERY 71 year old female who presents to the Emergency Room with complaints of persistent nausea and diarrhea. In your clinical opinion is this patient being managed for: ( x ) PARAS in setting of profuse diarrhea from C.Diff. ( ) Not Agree ( ) Other explanation of clinical findings (Please Explain) ( ) Unable to determine (Please Define) ( ) Need to Discuss The medical record reflects the following clinical findings, treatment, and risk factors. Clinical Indicators: diarrhea. Presenting Creatinine of 1.41. Treatment: IVF's, Vancomycin, IV MG and IV K+ Risk Factors: Multiple GI Surgeries with complications, recent Rx of C.diff Please clarify and document your clinical opinion in the progress notes and discharge summary. Terms such as "probable", "suspected", "likely", "questionable", "possible", or "still to be ruled out" are acceptable. IF IN AGREEMENT, YOU MUST DOCUMENT ABOVE DIAGNOSTIC STATEMENT IN DAILY PROGRESS NOTES AND DISCHARGE SUMMARY. This document is not part of the patient's record. Thank You, Donovan Hinds, GRANT [phone]
--- NOTE | 2017-07-29 12:03 | Gastroenterology Progress Note ---
Progress Note Date of Service: Jul 29, 2017 Subjective Pt evaluation today including: conversation w/ patient, physical exam, chart review, lab review, review of studies, review of inpatient medication list Ms. Quinn is a 71 yr old female patient admitted seen for severe diarrhea. She carries a complicated history of recurrent diverticulitis w microperforation, She [place]07 [place] [facility] [place] anterior sigmoid resection w small bowel resection. 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 She was then readmitted [place] [facility]es development and underwent IR drainage of these but also developed C-diff during that admission. She was admitted here on 07/27 for diarrhea, though C-diff negative. Today, eight loose/liquid BMs, occurring after eating or drinking. Now with nausea, Zofran helps but doesn't resolve. Review of Systems Constitutional: No fever, No chills Cardiac: No chest pain Abdomen: + nausea, + diarrhea, No pain, No vomiting, No constipation, No GI bleeding Female : No dysuria Neuro: No memory loss Psych: No depression symptoms Heme: No abnormal bleeding/bruising Endo: No fatigue Medications Current Inpatient Medications Medications (Trade) Dose Ordered Sig/Barb Route Start Time Stop Time Status Last Admin Dose Admin Ioversol (Optiray 320) 111 ml UD PRN IV 07/27/17 09:45 07/31/17 09:44 Ondansetron HCl (Zofran Inj) 4 mg Q6H PRN IV 07/27/17 13:30 08/26/17 13:29 07/29/17 06:02 4 MG Magnesium Sulfate 1 gm/Potassium Chloride 40 meq/ Dextrose/Sodium Chloride 1,022 ml @ 50 mls/hr [id number] IV 07/27/17 20:45 08/26/17 20:44 07/28/17 18:48 50 MLS/HR Amlodipine Besylate (Norvasc Tab) 10 mg QPM PO 07/27/17 21:00 08/26/17 20:59 07/28/17 20:32 10 MG Lansoprazole (Prevacid Solutab) 30 mg QPM PO 07/27/17 21:00 08/26/17 20:59 07/28/17 20:33 30 MG Levothyroxine Sodium (Synthroid Tab) 100 mcg DAILYBB PO 07/28/17 06:00 08/27/17 05:59 07/29/17 06:02 100 MCG Lorazepam (Ativan Tab) 0.5 mg HS PRN PO 07/27/17 21:00 08/26/17 20:59 07/28/17 10:01 0.5 MG Losartan Potassium (coZAAR TAB) 100 mg QAM PO 07/28/17 09:00 08/27/17 08:59 07/29/17 07:29 100 MG Vancomycin HCl (Vancomycin Oral Soln) 125 mg QID PO 07/27/17 21:00 08/10/17 20:59 07/29/17 07:29 125 MG Enoxaparin Sodium (Lovenox Inj) 40 mg QAM SQ 07/28/17 09:00 08/27/17 08:59 07/29/17 07:30 40 MG Raspberry (Raspberry Syrup 5ml Cup) 5 ml QID PO 07/27/17 21:00 08/10/17 20:59 07/29/17 07:29 5 ML Tramadol HCl (Ultram Tab) 50 mg Q4H PRN PO 07/28/17 04:30 08/27/17 04:29 07/28/17 06:44 50 MG Cholestyramine Resin (Questran Powder Light) 2 gm DAILY@1000 PO 07/29/17 10:00 08/28/17 09:59 07/29/17 10:17 2 GM Objective Vital Signs Date Time Temp Pulse Resp B/P (MAP) Pulse Ox O2 Delivery O2 Flow Rate FiO2 07/29/17 08:00 Room Air 07/29/17 07:27 37.0 76 18 163/90 (114) 96 Room Air 07/29/17 04:16 36.4 65 18 154/72 (99) 94 Room Air 07/29/17 04:00 Room Air 07/29/17 00:22 36.5 67 18 156/69 (98) 95 Room Air 07/29/17 00:00 Room Air 07/28/17 20:00 94 Room Air 07/28/17 19:47 36.9 65 18 143/63 (89) 94 Room Air 07/28/17 16:18 36.4 66 18 137/58 (84) 96 Room Air 07/28/17 16:00 94 Room Air Physical Exam General Appearance: no apparent distress ENT: pharynx normal Neck: no JVD Respiratory/Chest: lungs clear Cardiovascular: regular rate, rhythm, no JVD, no murmur Abdomen: non tender, soft Extremities: non-tender Skin: normal color, no jaundice, warm/dry, no rash, + pertinent finding (drain that was in place at L buttocks removed by Dr. Cat) Laboratory Results Last 24 Hours Test 07/29/17 06:57 White Blood Count 5.80 K/uL Red Blood Count 3.98 M/uL Hemoglobin 10.8 g/dL Hematocrit 33.7 % Mean Corpuscular Volume 84.7 fL Mean Corpuscular Hemoglobin 27.1 pg Mean Corpuscular Hemoglobin Concent 32.0 g/dl RDW Standard Deviation 47.3 fL RDW Coefficient of Variation 15.2 % Platelet Count 314 K/uL Mean Platelet Volume 10.0 fL Sodium Level 140 mmol/L Potassium Level 4.3 mmol/L Chloride Level 109 mmol/L Carbon Dioxide Level 25 mmol/L Anion Gap 6.0 mmol/L Blood Urea Nitrogen 7 mg/dl Creatinine 0.98 mg/dl Est Creatinine Clear Calc Drug Dose 52.3 ml/min Estimated GFR () 66.8 Estimated GFR (Non- 57.6 BUN/Creatinine Ratio 6.9 Random Glucose 103 mg/dl Calcium Level 8.5 mg/dl Magnesium Level 2.3 mg/dl Assessment and Plan Ms. Quinn is a 71 yr old female with diarrhea, several abdominal surgery procedures for diverticulitis then abscess with drain in place. She had a recent C-diff infection but stool test on arrival is (-). Plan: 1. Abdominal abscess drain removed from the left buttocks by Dr. Cat. 2. For diarrhea, will increase cholestyramine. 3. Advance diet but avoid dairy products, high fat and high fiber foods. 4. GI will continue to follow.
[2017-07-29] MEDS ORDERED: HYDROmorphone INJ 0.5 MG/0.5 ML SYR ONE (16:14)
[2017-07-29] MEDS ORDERED: HYDROmorphone INJ 0.5 MG/0.5 ML SYR IV PRN (16:30)
--- NOTE | 2017-07-29 16:34 | Progress Note ---
Medicine Progress Note Date & Time of Visit: Jul 29, 2017 at 16:10 . Subjective Nausea and vomiting this morning. Persistent loose stools without melena or hematochezia. No fever. No chest pain. No cough or SOB. . Objective Last 8 Hrs Date Time Temp Pulse Resp B/P (MAP) Pulse Ox O2 Delivery O2 Flow Rate FiO2 07/29/17 15:24 36.7 68 16 169/72 (104) 97 Room Air 07/29/17 12:55 Room Air 07/29/17 12:55 36.6 68 16 150/77 (101) 97 Room Air 07/29/17 12:50 36.6 70 18 95 07/29/17 12:03 36.6 70 18 147/76 (99) 95 07/29/17 12:00 Room Air Physical Exam: General- no distress Neck- no JVD Lungs- clear Heart- RRR Abdomen- + BS, soft, nontender Extremities- no pretibial edema or calf tenderness Neuro- alert Skin- warm & dry . Laboratory Results: Last 24 Hours Test 07/29/17 06:57 White Blood Count 5.80 K/uL Red Blood Count 3.98 M/uL Hemoglobin 10.8 g/dL Hematocrit 33.7 % Mean Corpuscular Volume 84.7 fL Mean Corpuscular Hemoglobin 27.1 pg Mean Corpuscular Hemoglobin Concent 32.0 g/dl RDW Standard Deviation 47.3 fL RDW Coefficient of Variation 15.2 % Platelet Count 314 K/uL Mean Platelet Volume 10.0 fL Sodium Level 140 mmol/L Potassium Level 4.3 mmol/L Chloride Level 109 mmol/L Carbon Dioxide Level 25 mmol/L Anion Gap 6.0 mmol/L Blood Urea Nitrogen 7 mg/dl Creatinine 0.98 mg/dl Est Creatinine Clear Calc Drug Dose 52.3 ml/min Estimated GFR () 66.8 Estimated GFR (Non- 57.6 BUN/Creatinine Ratio 6.9 Random Glucose 103 mg/dl Calcium Level 8.5 mg/dl Magnesium Level 2.3 mg/dl Assessment & Plan SEVERE DIARRHEA Recently diagnosed with C diff at [facility] [place]. Treated with oral vancomycin. Has received about 2 weeks of therapy, but has persistent diarrhea. May have persistent C diff. Checking stool culture to screen for other enteric infections. Patient attributes the diarrhea to metronidazole which is certainly possible; metronidazole discontinued. GI consulted. Started on cholestyramine. COMPLICATED DIVERTICULITIS Multiple episodes of pelvic abscesses and recurrent diverticulitis since 2014. S/P low anterior resection of sigmoid colon and partial resection of small bowel at [facility] [place] 07/07/17. Developed presacral and abdominal wall abscesses. I&D of abdominal wall abscess performed; culture grew E coli. IR drainage of pelvic abscess performed. CT of abdomen and pelvis 07/27 showed near complete drainage of presacral fluid collection with transgluteal catheter. Continue packing of abdominal wound BID. Continue flushing pelvic drain BID. No apparent need for systemic antibiotics at this time- afebrile, no leukocytosis, CT improved. Care coordinated with other providers. Pelvic drain removed by GI. ACUTE KIDNEY INJURY Serum creatinine 1.41 at time of admission, compared to baseline of 0.6-0.8. PARAS secondary to diarrhea. Received IV fluids. Serum creatinine today = 0.98. SEVERE HYPOKALEMIA Serum K 2.7 at time of admission. Hypokalemia secondary to severe diarrhea. Replaced. K today = 4.3. Follow. HYPOMAGNESEMIA Mg 1.6 day of admission. Replaced. Mg today = 2.3. Follow. HYPERTENSION Continue amlodipine and losartan. GERD Continue PPI. HYPOTHYROIDISM Continue levothyroxine. VTE PROPHYLAXIS SQ enoxaparin. Ambulate as able. RESUSCITATION STATUS Full resuscitation. DISPOSITION To be determined. Family Medicine follow-up with Dr. Mazariegos. . Current Inpatient Medications: Current Inpatient Medications Medications (Trade) Dose Ordered Sig/Barb Route Start Time Stop Time Status Last Admin Dose Admin Ioversol (Optiray 320) 111 ml UD PRN IV 07/27/17 09:45 07/31/17 09:44 Ondansetron HCl (Zofran Inj) 4 mg Q6H PRN IV 07/27/17 13:30 08/26/17 13:29 07/29/17 15:31 4 MG Magnesium Sulfate 1 gm/Potassium Chloride 40 meq/ Dextrose/Sodium Chloride 1,022 ml @ 50 mls/hr [id number] IV 07/27/17 20:45 08/26/17 20:44 07/28/17 18:48 50 MLS/HR Amlodipine Besylate (Norvasc Tab) 10 mg QPM PO 07/27/17 21:00 08/26/17 20:59 07/28/17 20:32 10 MG Lansoprazole (Prevacid Solutab) 30 mg QPM PO 07/27/17 21:00 08/26/17 20:59 07/28/17 20:33 30 MG Levothyroxine Sodium (Synthroid Tab) 100 mcg DAILYBB PO 07/28/17 06:00 08/27/17 05:59 07/29/17 06:02 100 MCG Lorazepam (Ativan Tab) 0.5 mg HS PRN PO 07/27/17 21:00 08/26/17 20:59 07/28/17 10:01 0.5 MG Losartan Potassium (coZAAR TAB) 100 mg QAM PO 07/28/17 09:00 08/27/17 08:59 07/29/17 07:29 100 MG Vancomycin HCl (Vancomycin Oral Soln) 125 mg QID PO 07/27/17 21:00 08/10/17 20:59 07/29/17 12:26 125 MG Enoxaparin Sodium (Lovenox Inj) 40 mg QAM SQ 07/28/17 09:00 08/27/17 08:59 07/29/17 07:30 40 MG Raspberry (Raspberry Syrup 5ml Cup) 5 ml QID PO 07/27/17 21:00 08/10/17 20:59 07/29/17 12:26 5 ML Tramadol HCl (Ultram Tab) 50 mg Q4H PRN PO 07/28/17 04:30 08/27/17 04:29 07/28/17 06:44 50 MG Cholestyramine Resin (Questran Powder Light) 2 gm DAILY@1000 PO 07/29/17 10:00 08/28/17 09:59 07/29/17 10:17 2 GM
[2017-07-29] MEDS: AMLODIPINE BESYLATE 5 MG TAB PO SCH (21:35)
[2017-07-29] MEDS: LANSOPRAZOLE SOLUTAB 30 MG PO SCH (21:35)
[2017-07-29] MEDS: LORAZEPAM 0.5 MG TAB PO PRN (21:43)
[2017-07-30 04:07] VITALS: BP 120/55; PULSE 56; TEMP 36.7; O2SAT 95
[2017-07-30] MEDS: LEVOTHYROXINE 100 MCG TAB PO SCH (05:26)
[2017-07-30 07:12] VITALS: BP 128/74; PULSE 64; TEMP 36.4; O2SAT 96
[2017-07-30] MEDS: ENOXAPARIN 40 MG/0.4 ML SYR SQ SCH (09:09)
[2017-07-30] MEDS: RASPBERRY SYRUP 5 ML UDP PO SCH ×2 (09:10→13:46)
[2017-07-30] MEDS: LOSARTAN POTASSIUM 50 MG TAB PO SCH (09:10)
[2017-07-30] MEDS: VANCOMYCIN HCL 125 MG/2.5ML SOLN PO SCH ×2 (09:13→13:46)
[2017-07-30] MEDS: CHOLESTYRAMINE LIGHT 4 GM PKT PO SCH (10:37)
--- NOTE | 2017-07-30 11:57 | Progress Note ---
Medicine Progress Note Date & Time of Visit: Jul 30, 2017 at 11:57 . Subjective Doing well. No nausea / vomiting since yesterday. Diarrhea improved- stools firmer and less frequent, only 1 episode this morning. Ambulating. . Objective Last 8 Hrs Date Time Temp Pulse Resp B/P (MAP) Pulse Ox O2 Delivery O2 Flow Rate FiO2 07/30/17 07:55 Room Air 07/30/17 07:12 36.4 64 16 128/74 (92) 96 Room Air 07/30/17 04:07 36.7 56 18 120/55 (76) 95 Room Air Physical Exam: General- no distress Neck- no JVD Lungs- clear Heart- RRR Abdomen- + BS, soft, nontender; lower abdominal incision packed with gauze, no surrounding erythema or drainage Extremities- no pretibial edema or calf tenderness Neuro- alert Skin- warm & dry . Assessment & Plan SEVERE DIARRHEA Recently diagnosed with C diff at [facility] [place], treated with oral vancomycin. Has received about 2 weeks of therapy, but has persistent diarrhea. Patient attributes the diarrhea to metronidazole which was discontinued. GI consulted. [place] that diarrhea most likely secondary to C diff. Started on cholestyramine with improvement. To continue cholestyramine for 1 week, then PRN. Continue vancomycin to complete course of therapy. COMPLICATED DIVERTICULITIS Multiple episodes of pelvic abscesses and recurrent diverticulitis since 2014. S/P low anterior resection of sigmoid colon and partial resection of small bowel at [facility] [place] 07/07/17. Developed presacral and abdominal wall abscesses. I&D of abdominal wall abscess performed; culture grew E coli. IR drainage of pelvic abscess performed. CT of abdomen and pelvis 07/27 showed near complete drainage of presacral fluid collection with transgluteal catheter. No apparent need for systemic antibiotics at this time- afebrile, no leukocytosis, CT improved. Pelvic drain removed by GI after discussion with colorectal surgery. Continue packing of abdominal wound BID. ACUTE KIDNEY INJURY Serum creatinine 1.41 at time of admission, compared to baseline of 0.6-0.8. PARAS secondary to diarrhea. Received IV fluids. Serum creatinine 07/29 was 0.98. SEVERE HYPOKALEMIA Serum K 2.7 at time of admission. Hypokalemia secondary to severe diarrhea. Replaced. K 07/29 was 4.3. Follow. HYPOMAGNESEMIA Mg 1.6 day of admission. Replaced. Mg 07/29 was 2.3. Follow. HYPERTENSION Continue amlodipine and losartan. GERD Continue PPI. HYPOTHYROIDISM Continue levothyroxine. VTE PROPHYLAXIS SQ enoxaparin. Ambulating. DISPOSITION Expected discharge to home. Family Medicine follow-up with Dr. Mazariegos. Follow-up with [facility] colorectal surgery. . Current Inpatient Medications: Current Inpatient Medications Medications (Trade) Dose Ordered Sig/Barb Route Start Time Stop Time Status Last Admin Dose Admin Ioversol (Optiray 320) 111 ml UD PRN IV 07/27/17 09:45 07/31/17 09:44 Ondansetron HCl (Zofran Inj) 4 mg Q6H PRN IV 07/27/17 13:30 08/26/17 13:29 07/29/17 15:31 4 MG Amlodipine Besylate (Norvasc Tab) 10 mg QPM PO 07/27/17 21:00 08/26/17 20:59 07/29/17 21:35 10 MG Lansoprazole (Prevacid Solutab) 30 mg QPM PO 07/27/17 21:00 08/26/17 20:59 07/29/17 21:35 30 MG Levothyroxine Sodium (Synthroid Tab) 100 mcg DAILYBB PO 07/28/17 06:00 08/27/17 05:59 07/30/17 05:26 100 MCG Lorazepam (Ativan Tab) 0.5 mg HS PRN PO 07/27/17 21:00 08/26/17 20:59 07/29/17 21:43 0.5 MG Losartan Potassium (coZAAR TAB) 100 mg QAM PO 07/28/17 09:00 08/27/17 08:59 07/30/17 09:10 100 MG Vancomycin HCl (Vancomycin Oral Soln) 125 mg QID PO 07/27/17 21:00 08/10/17 20:59 07/30/17 09:13 125 MG Enoxaparin Sodium (Lovenox Inj) 40 mg QAM SQ 07/28/17 09:00 08/27/17 08:59 07/30/17 09:09 40 MG Raspberry (Raspberry Syrup 5ml Cup) 5 ml QID PO 07/27/17 21:00 08/10/17 20:59 11/29/17 09:10 5 ML Tramadol HCl (Ultram Tab) 50 mg Q4H PRN PO 07/28/17 04:30 08/27/17 04:29 07/28/17 06:44 50 MG Cholestyramine Resin (Questran Powder Light) 2 gm DAILY@1000 PO 07/29/17 10:00 08/28/17 09:59 07/30/17 10:37 2 GM Hydromorphone HCl (Dilaudid Inj) 0.5 mg Q2H PRN IV 07/29/17 16:30 08/12/17 16:29
[2017-07-30] MEDS ORDERED: CHOL4POW5 PO (12:17)
--- NOTE | 2017-07-30 12:25 | Discharge Instructions ---
Discharge Instructions Date of Service Jul 30, 2017. Admission Reason for Admission: severe diarrhea, dehydration, low potassium level . Discharge Discharge Diagnosis / Problem: severe diarrhea, dehydration, low potassium level Discharge Goals Goal(s): Decrease discomfort, Improve disease control Activity Recommendations Activity Limitations: resume your previous activity . Instructions / Follow-Up Instructions / Follow-Up APPOINTMENTS: FAMILY MEDICINE 07/31/2017 11:20 AM Sophie Mazariegos MD COLORECTAL SURGERY Office will contact you with next appointment. OTHER INSTRUCTIONS: You had severe diarrhea, probably related to C diff infection. Take cholestyramine (Questran or Prevalite) 1 scoop mixed with beverage of choice each evening for about 1 week, then as needed for diarrhea. [prescription sent to Dominik Norman @ [facility]] Stop metronidazole. Continue vancomycin as instructed until 08/16/17. Continue wound care as previously instructed by your surgical team. Seek medical attention if you have: * temperature above 101 * chest pain or trouble breathing * abdominal pain, nausea, vomiting * diarrhea, dark stools or bloody stools * any unanswered questions or concerns Call 911 if symptoms are severe. Call if you have any questions or problems. My cell # is [phone]. You can also reach a [facility] hospitalist on duty at [facility] 24 hours a day by calling [phone]. Please take good care of yourself. Barber Nguyen . Current Hospital Diet Patient's current hospital diet: Regular Diet, Low Fat Diet, Low Fiber Diet, Low Lactose Diet Discharge Diet Recommended Diet: AHA Diet (Heart Healthy), Low Fiber Diet Pending Studies Studies pending at discharge: no Medical Emergencies . Who to Call and When: Medical Emergencies: If at any time you feel your situation is an emergency, please call 911 immediately. . Non-Emergent Contact Non-Emergency issues call your: Primary Care Provider, Hospital Doctor, Surgeon . . "Provider Documentation" section prepared by Barber Ngueyn. . VTE Core Measure Inpt VTE Proph given/why not?: Enoxaparin (Lovenox)SQ
--- NOTE | 2017-07-30 14:30 | Gastroenterology Progress Note ---
Progress Note Date of Service: Jul 30, 2017 Subjective Pt evaluation today including: conversation w/ patient, conversation w/ family , physical exam, chart review, lab review, review of studies, review of inpatient medication list Ms. Quinn is a 71 yr old female patient admitted for severe diarrhea S/P multiple recent abdominal surgeries for diverticulitis with microperforation, then C-diff. Today, she's had one bowel movement notes for.(Colestid was started yesterday: 2 grams daily at 10AM; she continues C. difficile treatment - Vanco 125 QID). No nausea/vomiting. Decreased frequency of bowel movements. None during the night last night. Only one thus far today, loose consistency. Buttock strain site (removed yesterday) without redness mass or discharge. Review of Systems Constitutional: No fever Respiratory: No cough Cardiac: No chest pain Abdomen: + see HPI, + diarrhea (much improved), No pain, No nausea, No vomiting , No constipation, No GI bleeding Musculoskeletal: No joint pain Female : No dysuria Neuro: No memory loss Psych: No depression symptoms Heme: No abnormal bleeding/bruising Endo: No fatigue Skin: No rash Medications Current Inpatient Medications Medications (Trade) Dose Ordered Sig/Barb Route Start Time Stop Time Status Last Admin Dose Admin Ioversol (Optiray 320) 111 ml UD PRN IV 07/27/17 09:45 07/31/17 09:44 Ondansetron HCl (Zofran Inj) 4 mg Q6H PRN IV 07/27/17 13:30 08/26/17 13:29 07/29/17 15:31 4 MG Amlodipine Besylate (Norvasc Tab) 10 mg QPM PO 07/27/17 21:00 08/26/17 20:59 07/29/17 21:35 10 MG Lansoprazole (Prevacid Solutab) 30 mg QPM PO 07/27/17 21:00 08/26/17 20:59 07/29/17 21:35 30 MG Levothyroxine Sodium (Synthroid Tab) 100 mcg DAILYBB PO 07/28/17 06:00 08/27/17 05:59 07/30/17 05:26 100 MCG Lorazepam (Ativan Tab) 0.5 mg HS PRN PO 07/27/17 21:00 08/26/17 20:59 07/29/17 21:43 0.5 MG Losartan Potassium (coZAAR TAB) 100 mg QAM PO 07/28/17 09:00 08/27/17 08:59 07/30/17 09:10 100 MG Vancomycin HCl (Vancomycin Oral Soln) 125 mg QID PO 07/27/17 21:00 08/10/17 20:59 07/30/17 13:46 125 MG Enoxaparin Sodium (Lovenox Inj) 40 mg QAM SQ 07/28/17 09:00 08/27/17 08:59 07/30/17 09:09 40 MG Raspberry (Raspberry Syrup 5ml Cup) 5 ml QID PO 07/27/17 21:00 08/10/17 20:59 07/30/17 13:46 5 ML Tramadol HCl (Ultram Tab) 50 mg Q4H PRN PO 07/28/17 04:30 08/27/17 04:29 07/28/17 06:44 50 MG Cholestyramine Resin (Questran Powder Light) 2 gm DAILY@1000 PO 07/29/17 10:00 08/28/17 09:59 07/30/17 10:37 2 GM Hydromorphone HCl (Dilaudid Inj) 0.5 mg Q2H PRN IV 07/29/17 16:30 08/12/17 16:29 Objective Vital Signs Date Time Temp Pulse Resp B/P (MAP) Pulse Ox O2 Delivery O2 Flow Rate FiO2 07/30/17 07:55 Room Air 07/30/17 07:12 36.4 64 16 128/74 (92) 96 Room Air 07/30/17 04:07 36.7 56 18 120/55 (76) 95 Room Air 07/29/17 23:32 36.8 50 18 111/52 (71) 93 Room Air 07/29/17 20:00 Room Air 07/29/17 19:48 36.6 58 16 116/76 (89) 96 Room Air 07/29/17 15:24 36.7 68 16 169/72 (104) 97 Room Air Physical Exam General Appearance: no apparent distress ENT: TMs normal Neck: supple, thyroid normal, no JVD Respiratory/Chest: lungs clear Cardiovascular: regular rate, rhythm, no edema, no JVD, no murmur Abdomen: soft Extremities: non-tender Neurologic/Psych: alert, normal mood/affect, oriented x 3 Skin: no jaundice Assessment and Plan Ms. Quinn is a 71 yr old female with diarrhea, several abdominal surgical procedures for diverticulitis then abscess which was drained by IR; the drain was removed yesterday. She had a recent C-diff infection but stool test on arrival is (-). Patient is concerned about a new 1 cm area of abdominal incision dehiscence, above the area that has been packed midline on the abdomen. This is suspected by Dr. Cat who feels that it is not new and that no surgical intervention is required for this. Plan: 1. For diarrhea, titrate cholestyramine, start with 2 g daily, decrease of any constipation. 2. Low fiber low-fat diet avoid dairy products. 3. No GI contraindication to discharge. 4. Patient needs eventual follow-up with colorectal surgery. will call to reschedule. Attg add: I reviewed chart and labs, interviewed and examined pt. Pt much improved - her diarrhea is markedly improved overnight. She is ramya PO with fair appetite. Her drain site appears to have closed. Her wound has dehisced, but is without evidence of infection. OK for d/c. I have instructed her to cont cholestyramine for the next several days if needed, and to discontinue if she feels like she has constipation. Please call with questions.
[2017-07-30 14:43] VITALS: BP 128/74; PULSE 64; TEMP 36.4; O2SAT 96
--- NOTE | 2017-07-30 16:46 | Discharge Summary ---
Discharge Summary Date of Service Jul 30, 2017. Discharge Summary Admission Date: Jul 27, 2017 at 13:23 Discharge Date: Jul 30, 2017 Discharge Disposition: Home Principal Diagnosis: severe diarrhea, probably secondary to C difficile (present on admission) OTHER ACUTE DIAGNOSES: acute kidney injury hypokalemia hypomagnesemia dehydration . Secondary Diagnoses/Problems: Chronic and Resolved Medical Problems: (1) Suarez esophagus Status: Chronic (2) Diarrhea Status: Resolved (3) Diverticulitis Permanent Comment: multiple episodes since 2014 one episode with abscess requiring drainage; no other surgeries follows with [facility] [place] [facility] Status: Chronic (4) GERD (gastroesophageal reflux disease) Status: Chronic (5) HLD (hyperlipidemia) Status: Chronic (6) HTN (hypertension) Status: Chronic (7) Hypothyroidism Status: Chronic (8) Intra-abdominal abscess Status: Resolved (9) Intraductal carcinoma of left breast Permanent Comment: Abnormal left breast mammogram Status post stereotactic biopsy 11/14/2015 revealing DCIS grade 1 Estrogen receptor positive and progesterone receptor positive Status post needle localization lumpectomy 12/20/2015 Stage pTis pNX Status post completion of radiation therapy 03/01/2016 received 3850 cGy utilizing accelerated partial breast irradiation. Status: Chronic Surgical Problems: (1) H/O foot surgery Status: Chronic (2) H/O inguinal hernia repair Status: Chronic (3) History of appendectomy Status: Chronic (4) History of bowel resection Permanent Comment: 07/07/17 [facility] [place] [place] laparoscopic low anterior resection + partial resection small bowel Status: Chronic (5) Hx of tonsillectomy Status: Chronic (6) S/P cholecystectomy Status: Chronic (7) S/P left knee arthroscopy Status: Chronic (8) S/P right knee arthroscopy Status: Chronic (9) S/P wrist surgery Permanent Comment: left Status: Chronic . Procedures: CT abdomen + pelvis cardiac monitoring IV fluids IV meds . Consultations: GI . Medication Reconciliation New Medications: Cholestyramine Light (Prevalite) 4 Gm/Dose Pow 0 PO UD, #1 CAN 4 gms (1 scoop) mixed with 4 ounces of beverage of choice at bedtime for 1 wk, then as needed for diarrhea. Continued Medications: Amlodipine Besylate (Amlodipine Besylate) 5 Mg Tab 10 MG PO QPM 2 tablet dose Cholecalciferol (Vitamin D 400) 400 Unit Chw 400 UNITS PO HS Lactobacillus Acidophilus (Floranex) 1 Tab Tab 1 TAB PO TID Lansoprazole (Prevacid Solutab) 30 Mg [place] 30 MG PO QPM Levothyroxine Sodium (Levothyroxine Sodium) 100 Mcg Tab 100 MCG PO QAM Lorazepam (Lorazepam) 0.5 Mg Tab 0.5 MG PO HS PRN for insomnia Losartan Potassium (Cozaar) 50 Mg Tab 100 MG PO QAM 2 tablet dose [vancomycin susp] () 100 mg/ml SUSP 125 MG PO QID Discontinued Medications: [metronidazole susp] () 50 mg/ml SUSP 500 MG PO TID Admission Information HPI (per Admitting provider): 71 YO female followed by Dr. Mazariegos. History of hypertension and complicated diverticular disease. Developed acute diverticulitis with microperforation in May 2015. Managed nonsurgically with bowel rest and antibiotics. Discharged to home. Returned to ED about a week later with abdominal pain and found to have pelvic abscesses. Transferred to [facility] for availability of Interventional Radiology for drainage. Subsequent admissions for recurrent pelvic abscesses, recurrent acute diverticulitis, C diff in 2015 and 2016. Developed enterovaginal fistula. Laparoscopic hand assisted low anterior sigmoid resection with small bowel resection performed at [facility] 07/07/17. Discharged to home 07/11/17. Readmitted to [facility] [place] [place] 07/16/17 with abscesses of presacral pelvis and anterior abdominal wall. Underwent IR drainage of pelvic abscess as well as I&D of abdominal wall abscess. Culture from abdominal abscess grew E coli, resistant to ampicillin, quinolones , and gentamicin. Discharged 07/21/17 with IR drain and antibiotics. DC meds included vancomycin for C diff and cefixime + metronidazole for abscesses. She did not take the cefixime because of prior allergy to cephalosporins. Experienced severe diarrhea which she attributed to the metronidazole, so she stopped taking it after a few days. She was able to take the oral vancomycin. Tried to resume metronidazole, but again had frequent watery diarrhea without blood. Took oxycodone for left buttock pain where drain located, but developed nausea and vomiting that she attributed to the oxycodone. Came to ED today because of ongoing frequent diarrhea and progressive weakness. . Physical Exam (per Admitting): General Appearance: WD/WN, no apparent distress Head: normocephalic, atraumatic Eyes: normal inspection, PERRL, EOMI, sclerae normal ENT: normal ENT inspection, hearing grossly normal, pharynx normal Neck: supple, no adenopathy, thyroid normal, trachea midline Respiratory/Chest: lungs clear, no respiratory distress, no accessory muscle use Cardiovascular: regular rate, rhythm, no edema, no gallop, no JVD, no murmur , normal peripheral pulses Abdomen/GI: + pertinent finding (+ BS, soft, nontender; surgical incision lower abdomen packed with gauze, no surrounding erythema; no palpable masses) Extremities/Musculoskelatal: normal inspection, no calf tenderness, + pertinent finding (surgical drain exiting left buttock) 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 Has received about 2 weeks of therapy, but has persistent diarrhea. Patient attributes the diarrhea to metronidazole which was discontinued. GI consulted. [place] that diarrhea most likely secondary to C diff. Started on cholestyramine with improvement. To continue cholestyramine for 1 week, then PRN. Continue vancomycin to complete course of therapy. COMPLICATED DIVERTICULITIS Multiple episodes of pelvic abscesses and recurrent diverticulitis since 2014. S/P low anterior resection of sigmoid colon and partial resection of small bowel at [facility] [place] [place] 07/07/17. Developed presacral and abdominal wall abscesses. I&D of abdominal wall abscess performed; culture grew E coli. IR drainage of pelvic abscess performed. CT of abdomen and pelvis 07/27 showed near complete drainage of presacral fluid collection with transgluteal catheter. No apparent need for systemic antibiotics at this time- afebrile, no leukocytosis, CT improved. Pelvic drain removed by GI after discussion with colorectal surgery. Continue packing of abdominal wound BID. ACUTE KIDNEY INJURY Serum creatinine 1.41 at time of admission, compared to baseline of 0.6-0.8. PARAS secondary to diarrhea. Received IV fluids. Serum creatinine 07/29 was 0.98. SEVERE HYPOKALEMIA Serum K 2.7 at time of admission. Hypokalemia secondary to severe diarrhea. Replaced. K 07/29 was 4.3. Follow. HYPOMAGNESEMIA Mg 1.6 day of admission. Replaced. Mg 07/29 was 2.3. Follow. HYPERTENSION Continue amlodipine and losartan. GERD Continue PPI. HYPOTHYROIDISM Continue levothyroxine. VTE PROPHYLAXIS SQ enoxaparin. Ambulating. DISPOSITION Expected discharge to home. Family Medicine follow-up with Dr. Mazariegos. Follow-up with [facility]. . Total time spent on discharge = 35 min. This includes examination of the patient, discharge planning, medication reconciliation, and communication with other providers. Discharge Instructions Date of Service Jul 30, 2017. Admission Reason for Admission: severe diarrhea, dehydration, low potassium level . Discharge Discharge Diagnosis / Problem: severe diarrhea, dehydration, low potassium level Discharge Goals Goal(s): Decrease discomfort, Improve disease control Activity Recommendations Activity Limitations: resume your previous activity . Instructions / Follow-Up Instructions / Follow-Up APPOINTMENTS: FAMILY MEDICINE 07/31/2017 11:20 AM Sophie Mazariegos MD COLORECTAL SURGERY Office will contact you with next appointment. OTHER INSTRUCTIONS: You had severe diarrhea, probably related to C diff infection. Take cholestyramine (Questran or Prevalite) 1 scoop mixed with beverage of choice each evening for about 1 week, then as needed for diarrhea. [prescription sent to [facility] [place]] Stop metronidazole. Continue vancomycin as instructed until 08/16/17. Continue wound care as previously instructed by your surgical team. Seek medical attention if you have: * temperature above 101 * chest pain or trouble breathing * abdominal pain, nausea, vomiting * diarrhea, dark stools or bloody stools * any unanswered questions or concerns Call 911 if symptoms are severe. Call if you have any questions or problems. My cell # is [phone]. You can also reach a [facility] hospitalist on duty at [facility] 24 hours a day by calling [phone]. Please take good care of yourself. Barber Nguyen . Current Hospital Diet Patient's current hospital diet: Regular Diet, Low Fat Diet, Low Fiber Diet, Low Lactose Diet Discharge Diet Recommended Diet: AHA Diet (Heart Healthy), Low Fiber Diet Pending Studies Studies pending at discharge: no Medical Emergencies . Who to Call and When: Medical Emergencies: If at any time you feel your situation is an emergency, please call 911 immediately. . Non-Emergent Contact Non-Emergency issues call your: Primary Care Provider, Hospital Doctor, Surgeon . . "Provider Documentation" section prepared by Barber Nguyen. . VTE Core Measure Inpt VTE Proph given/why not?: Enoxaparin (Lovenox)SQ .
[2017-07-31 13:32] LABS: NOROVIRUS RNA** TC 19098X NOT DETECTED; O&P GIARDIA AG NOT DETECTED (NOT DETECTED)
== END 2017-07-30 15:04 | disposition home health service (06) | DRG 372 ==
LOC: C.EDB 08:57 → C.2E 13:23 → ENRESERV 14:13 → C.MSN 07-29 13:03
PROVIDERS: ADMIT Hospitalist; ATTEND Hospitalist
DX: A04.72 Enterocolitis due to Clostridium difficile, not specified as recurrent (principal); N17.9 Acute kidney failure, unspecified; K57.92 Diverticulitis of intestine, part unspecified, without perforation or abscess without bleeding; I10 Essential (primary) hypertension; K21.9 Gastro-esophageal reflux disease without esophagitis; E03.9 Hypothyroidism, unspecified; K22.70 Barrett's esophagus without dysplasia; E78.5 Hyperlipidemia, unspecified; E87.6 Hypokalemia; E83.42 Hypomagnesemia; E86.0 Dehydration; Z90.49 Acquired absence of other specified parts of digestive tract; Z85.3 Personal history of malignant neoplasm of breast

== ENCOUNTER 2017-08-29 12:37 | Emergency (ER) | payer BC ==
[~2017-08-29] VITALS: Ht 154.9 cm; Wt 70.4 kg
[~2017-08-29 12:37] MED LIST changes: -CALC600T9 PO; -DOXY100T17 PO; -HYDR1INJ48 PO; -HYDR1LIQ8 PO; -HYDR2.5O TOP; -MGCL40 PO; -RIVA1TAB4 PO; -RIVA1TAB7 PO; -VANC1SOL3 PO; -VANC5CAP PO; -XRL10 PO
[2017-08-29 12:42] VITALS: TEMP 36.3; Ht 154.9 cm; Wt 70.4 kg
[2017-08-29] MEDS ORDERED: MGCL40 PO (13:09)
[2017-08-29] MEDS ORDERED: RIVAROXABAN 20 MG TAB PO STA (13:09)
[2017-08-29] MEDS ORDERED: HYDR1LIQ8 PO (13:09)
[2017-08-29] MEDS ORDERED: VANC1SOL3 PO (13:10)
--- NOTE | 2017-08-29 13:10 | EMERGENCY ROOM VISIT NOTE ---
History Report prepared by Aracelis: Irving Tobar Under the Supervision of: Dr. Brady Melton M.D. First contact with patient: 12:48 Chief Complaint: LEG PAIN,LEG INJURY Stated Complaint: BLOOD CLOT IN R LEG History of Present Illness The patient is a 71 year old white male with a past medical history of Diverticulitis, breast cancer, lumpectomy, HTN, HLD, bowel resection, colectomy , C. Diff, hypothyroidism, appendectomy, and cholecystectomy who presents to the ED with a cc of constant leg pain beginning five days ago. She rates her pain as a 5/10 in severity. Positive diarrhea. Negative shortness of breath, prior blood clots, back pain, and blood thinner use. The patient states that she had diverticulitis, which caused her to develop an abscess. She states that she had a colectomy on July 07 due to this issue performed by Dr. Nowak, General Surgery. The patient states that the wound was not healing well on the inside, which caused her to receive a wound vac a week ago. She states that within the last five days, she developed constant right leg pain. The patient states that she went to her doctors this morning and told him about her leg pain. She reports that the ultrasound showed a blood clot in her right leg, which caused her to come to the ED. Source of History: patient Onset: five days ago Position: leg (left) Symptom Intensity: 5/10 Timing: constant Associated Symptoms: + diarrhea, No SOB, No back pain Review of Systems See HPI for pertinent positives and negatives. A total of ten systems were reviewed and were otherwise negative. 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 Surgical Problems: (1) H/O foot surgery (2) H/O inguinal hernia repair (3) History of appendectomy (4) History of bowel resection (5) Hx of tonsillectomy (6) S/P cholecystectomy (7) S/P left knee arthroscopy (8) S/P right knee arthroscopy (9) S/P wrist surgery Family History FH: breast cancer MOTHER FH: lung cancer FATHER Social History Smoking Status: Former Smoker Alcohol Use: none Drug Use: none Marital Status: Housing Status: lives with family Occupation Status: retired Current/Historical Medications Scheduled Amlodipine Besylate (Amlodipine Besylate), 10 MG PO QPM Cholestyramine Light (Prevalite), 0 PO UD Hydromorphone Hcl (Hydromorphone Hcl), Unknown Dose PO UNKNOWN Lansoprazole (Prevacid Solutab), 30 MG PO QPM Levothyroxine Sodium (Levothyroxine Sodium), 100 MCG PO QAM Losartan Potassium (Cozaar), 100 MG PO QAM Megestrol Acetate (Megestrol Acetate), Unknown Dose PO UNKNOWN Rivaroxaban (Xarelto Starter Pack 15 & 20 mg), 1 TAB PO DIRECTED Vancomycin HCl (First-Vancomycin 50), Unknown Dose PO BID Scheduled PRN Lorazepam (Lorazepam), 0.5 MG PO HS PRN for insomnia Allergies Coded Allergies: Iodinated Diagnostic Agents (Verified Allergy, Severe, sob, 08/29/17) Azithromycin (Verified Allergy, Intermediate, RASH, 08/29/17) Levalbuterol Hydrochloride (Verified Allergy, Intermediate, CHEST PAIN, ) Minocycline (Verified Allergy, Intermediate, RASH, 08/29/17) Iodine (Verified Allergy, Mild, IV CONTRAST, 08/29/17) Cefaclor (Verified Allergy, Unknown, HIVES, 08/29/17) Erythromycin (Verified Allergy, Unknown, HIVES, 08/29/17) Nitrofurantoin (Verified Allergy, Unknown, 08/29/17) Phenazopyridine (Verified Allergy, Unknown, sob, 08/29/17) Sulfa Antibiotics (Verified Allergy, Unknown, HIVES, 08/29/17) Levofloxacin (Verified Adverse Reaction, Intermediate, ABDOMINAL PAIN, ) Metronidazole (Verified Adverse Reaction, Intermediate, GI SYMPTOMS, 08/29) C-diff Morphine (Verified Adverse Reaction, Intermediate, EXCESSIVE VOMITING, ) Pt. states excessive vomiting with this medication Physical Exam Vital Signs Date Time Temp Pulse Resp B/P (MAP) Pulse Ox O2 Delivery O2 Flow Rate FiO2 08/29/17 13:46 70 16 153/71 99 08/29/17 12:42 36.3 83 18 144/76 94 Room Air Physical Exam GENERAL: Awake, alert, well-appearing, NAD HENT: Normocephalic, atraumatic. EYES: Normal conjunctiva. Sclera non-icteric. NECK: Supple. No nuchal rigidity. FROM. RESPIRATORY: CTAB, no rhonchi, wheezing, crackles CARDIAC: RRR, no MRG ABDOMEN: Soft, NTND, BS+, Wound vac over suprapubic area MSK: No chest wall TTP, no LE edema, mild swelling to right calf with pain to palpation, NVI distally NEURO: GCS 15, CN 2-12 intact, moves all 4s on command SKIN: No rash or jaundice noted. Medical Decision & Procedures ER Provider Diagnostic Interpretation: Radiology results as stated below per my review and radiologist interpretation: ULTRASOUND RIGHT LOWER EXTREMITY VENOUS CLINICAL HISTORY: Right leg pain and swelling. COMPARISON STUDY: Bilateral lower extremity venous ultrasound dated 08/11/2012. TECHNIQUE: Real-time, grayscale, and color Doppler sonography of the deep veins of the right lower extremity was performed from the inguinal crease to the calf. Compression and augmentation were utilized. FINDINGS: There is nearly occlusive deep venous thrombosis identified within the right popliteal vein. This extends into the calf within branches of the posterior tibial and peroneal veins. The common femoral and superficial femoral veins are patent and normally compressible. The greater saphenous vein and the profunda femoris vein at the junction with the common femoral vein are clear. IMPRESSION: There is nearly occlusive deep venous thrombosis seen within the popliteal vein extending into the calf. Electronically signed by: Jeremiah Estrella M.D. 08/29/2017 12:08 PM Dictated Date/Time: 08/29/2017 12:07 PM Medications Administered Medications (Trade) Dose Ordered Sig/Barb Route Start Time Stop Time Status Last Admin Dose Admin Rivaroxaban (Xarelto Tab) 15 mg ONE STAT PO 08/29/17 13:09 08/29/17 13:10 DC 08/29/17 13:22 15 MG ED Course 1251: The patient was evaluated in room A10. A complete history and physical exam was performed. 1305: I discussed the patients case with Dr. Kinney, [facility]. He states there is no no indication for blood thinners so we can start treatment. 1317: I reevaluated the patient. Discussed results and discharge instructions: She verbalized understanding and agreement. The patient is ready for discharge. Medical Decision The patient is a 71 year old white male with a past medical history of Diverticulitis, breast cancer, lumpectomy, HTN, HLD, bowel resection, colectomy , C. Diff, hypothyroidism, appendectomy, and cholecystectomy who presents to the ED with a cc of constant leg pain beginning five days ago. Triage Nursing notes reviewed. The patient's presentation and history were concerning for etiologies such as DVT, musculoskeletal, infection, joint effusion, trauma, lymphedema, idiopathic , CHF, as well as others were entertained. Patient was seen and evaluated the bedside. Patient does have a prior history of a recent diverticulitis status post colectomy secondary to it; multiple abscesses that then required potentially percutaneous drainage. Patient does have a wound VAC in place over the lower abdomen. Patient was seen in wound care clinic today by Dr. Kinney and referred for an ultrasound given some right lower extremity pain. Patient's ultrasound did show a nearly occlusive DVT of the popliteal extending into the calf. Patient did have some mild Pain but denies any shortness of breath or chest pains. Patient is not tachypneic nor tachycardic nor hypoxic. Patient was given a first dose of Xarelto. This was given after discussion with Dr. Kinney who stated that this was appropriate even given her wound VAC. Patient was able to tolerate her first dose. Patient was given obstruction for outpatient. Patient was given instructions. Patient was deemed suitable for outpatient follow-up and treatment. Patient was given strict follow-up, discharge, and return precautions. All questions were answered. Patient was deemed suitable for outpatient follow-up at this time. Patient agreed with the plan of care and was safely discharged home. Of note the patient's did call as the pharmacy did not have any of these Xarelto starter packs. There was some difficulty in obtaining this. W/ the help of the charge nurse, our pharmacy did call [facility] and they arranged to have the individual tablets ordered 15 mg twice a day for the next 3 weeks. The charge nurse also did call the patient's primary care physician to leave the message that they would need follow-up in 3 weeks in order to obtain further medication with regard to her blood clot. Medication Reconcilliation Current Medication List: was personally reviewed by me Blood Pressure Screening Patient's blood pressure: Elevated blood pressure Blood pressure disposition: Referred to PCP Consults Time Called: 1303 Consulting Physician: [facility] Returned Call: [phone] I discussed the patients case with [facility]. He states there is no no indication for blood thinners so we can start treatment. Impression Primary Impression: Right leg DVT Additional Impression: Leg pain, right Scribe Attestation The scribe's documentation has been prepared under my direction and personally reviewed by me in its entirety. I confirm that the note above accurately reflects all work, treatment, procedures, and medical decision making performed by me. Departure Information Dispostion Home / Self-Care Prescriptions Rivaroxaban (Xarelto Starter Pack 15 & 20 mg) 1 Tab Tab 1 TAB PO DIRECTED for 28 Days, #1 PKT Prov: Brady Melton M.D. 08/29/17 Referrals Sophie Mazariegos M.D. (PCP) Patient Instructions DVT, DVT Prevent, My [facility] Additional Instructions Please return to the emergency department if you have worsening or recurrent symptoms not amenable to at-home treatment. Please call for a follow-up appointment with her primary care physician. Please take your medications as prescribed. If you have other concerns and/or complaints please feel free to also call your primary care physician's office or return the ED for further evaluation, management, and treatment. You were found to have an elevated blood pressure today (>120 sytolic or >90 diastolic). Per medicare guidelines, you need to follow up with this blood pressure screening with your Primary Care Physician (PCP). For a new PCP call [phone]. You may take tylenol 1000 mg every 6 hours as needed for pain. Please avoid NSAIDs while you take Xarelto. Please take Xarelto as described on the box. This should be a twice-daily medication for the first 21 days and then once a day for the subsequent days. Please make sure to follow-up with her primary care before this prescription runs out as you will need a refill in further discussion if you need to continue on her blood thinning medication. Take your medications as prescribed. If taking an antibiotic consider taking a probiotic and/or eating yogurt, but at the least, please take with food as it can cause upset stomach. If culture results are not available at discharge, if they are positive for concern of infection, you will be informed of the results as soon as they are available. If you were seen between 11pm and 7AM all radiology reads will be re-read by our in house staff. If any major discrepancies are discovered, you will be notified. You have been examined and treated today on an emergency basis only. This is not a substitute for, or an effort to provide, complete comprehensive medical care. It is impossible to recognize and treat all injuries or illnesses in a single emergency department visit. It is therefore important that you follow up closely with [facility], your PCP, and/or your specialist(s). Call as soon as possible for an appointment. Thank you for your time and consideration. I look forward to speaking with you again soon. Please don't hesitate to call us if you have any questions. Problem Qualifiers Primary Impression: Right leg DVT Affected thrombotic vein of extremity: popliteal Chronicity: acute Qualified Codes: I82.431 - Acute embolism and thrombosis of right popliteal vein
[2017-08-29] MEDS ORDERED: RIVA1TAB7 PO (13:35)
[2017-08-29 13:46] VITALS: BP 153/71; PULSE 70; O2SAT 99
[2017-09-03] MEDS ORDERED: XRL10 PO (09:36)
[2017-09-03] MEDS ORDERED: DOXY100T17 PO (10:06)
[2017-09-29] MEDS ORDERED: VANC5CAP PO (13:05)
[2017-10-21] MEDS ORDERED: HYDR2.5O TOP (12:20)
[2017-10-21] MEDS ORDERED: LANS30TA3 PO (12:20)
[2017-10-21] MEDS ORDERED: HYDR1INJ48 PO (12:20)
[2017-10-21] MEDS ORDERED: CALC600T9 PO (12:20)
[2017-10-21] MEDS ORDERED: RIVA1TAB4 PO (12:48)
== END 2017-08-29 13:48 | disposition home or self-care (01) ==
LOC: C.EDB 12:38 → C.EDA 13:48
DX: I82.431 Acute embolism and thrombosis of right popliteal vein (principal); Z85.3 Personal history of malignant neoplasm of breast; I10 Essential (primary) hypertension; E78.5 Hyperlipidemia, unspecified; Z90.49 Acquired absence of other specified parts of digestive tract; E03.9 Hypothyroidism, unspecified; K22.70 Barrett's esophagus without dysplasia; K21.9 Gastro-esophageal reflux disease without esophagitis; Z80.3 Family history of malignant neoplasm of breast; Z80.1 Family history of malignant neoplasm of trachea, bronchus and lung; Z87.891 Personal history of nicotine dependence; M79.604 Pain in right leg; M79.89 Other specified soft tissue disorders

== ENCOUNTER → 2017-08-29 | Outpatient (CLI) | payer BC ==
[~2017-08-29] MED LIST changes: +CALC600T9 PO; -CHOL400C10 PO; +CHOL4POW5 PO; -CPRS5005 PO; +DOXY100T17 PO; +HYDR1INJ48 PO; +HYDR1LIQ8 PO; +HYDR2.5O TOP; +MGCL40 PO; +RIVA1TAB4 PO; +RIVA1TAB7 PO; +VANC1SOL3 PO; +VANC5CAP PO; +XRL10 PO; +vancomycin susp PO
--- NOTE | 2017-08-29 12:09 | DIAGNOSTIC IMAGING REPORT ---
ULTRASOUND RIGHT LOWER EXTREMITY VENOUS CLINICAL HISTORY: Right leg pain and swelling. COMPARISON STUDY: Bilateral lower extremity venous ultrasound dated 08/11/2012. TECHNIQUE: Real-time, grayscale, and color Doppler sonography of the deep veins of the right lower extremity was performed from the inguinal crease to the calf. Compression and augmentation were utilized. FINDINGS: There is nearly occlusive deep venous thrombosis identified within the right popliteal vein. This extends into the calf within branches of the posterior tibial and peroneal veins. The common femoral and superficial femoral veins are patent and normally compressible. The greater saphenous vein and the profunda femoris vein at the junction with the common femoral vein are clear. IMPRESSION: There is nearly occlusive deep venous thrombosis seen within the popliteal vein extending into the calf. Electronically signed by: Jeremiah Estrella M.D. 08/29/2017 12:08 PM Dictated Date/Time: 08/29/2017 12:07 PM
== END | disposition home or self-care (01) ==
LOC: C.ULTRBC 11:30
PROVIDERS: ATTEND Emergency Medicine
DX: M79.604 Pain in right leg (principal); M79.89 Other specified soft tissue disorders

== ENCOUNTER 2017-09-23 07:00 | Emergency (ER) | payer BC ==
[~2017-09-23] VITALS: Ht 154.9 cm; Wt 70.5 kg
[~2017-09-23 07:00] MED LIST changes: +VANC1SOL3 PO; +XRL10 PO; -vancomycin susp PO
[2017-09-23 07:03] VITALS: TEMP 36.5; Ht 154.9 cm; Wt 70.5 kg
[2017-09-23 07:30] VITALS: O2SAT 98
--- NOTE | 2017-09-23 07:51 | EMERGENCY ROOM VISIT NOTE ---
History Report prepared by Aracelis: Chad Crowell Under the Supervision of: Dr. Barber Rodriguez M.D. First contact with patient: 07:15 Chief Complaint: ED VAG BLEEDING Stated Complaint: BLEEDING OUT VAGINA History of Present Illness The patient is a 72 year old female who presents to the Emergency Room with complaints of vaginal bleeding/hematuria that began last night. The patient notes that there is blood present with and without urination and is not sure if it is vaginal or urinary. She is currently taking Xarelto for anticoagulation, secondary to a DVT in the leg. She also notes intermittent bilateral flank pain that onset last night at roughly the same time. She rates her flank pain as a 8/ 10 in severity. The patient experienced 10 bouts of diarrhea yesterday and is concerned that she may have c. Diff. She currently has a wound vac in place secondary to to a bowel resection due to diverticulitis. She currently denies LOC, headache, fevers, chills, diaphoresis, visual changes, neck pain, chest pain, breathing difficulties, melena, hematochezia, numbness, weakness, lymphadenopathy, rash, or other complaints. 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 A total of ten systems were reviewed and were otherwise negative. 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 (11) Open abdominal wall wound Surgical Problems: (1) H/O foot surgery (2) H/O inguinal hernia repair (3) History of appendectomy (4) History of bowel resection (5) Hx of tonsillectomy (6) S/P cholecystectomy (7) S/P left knee arthroscopy (8) S/P right knee arthroscopy (9) S/P wrist surgery Family History FH: breast cancer MOTHER FH: lung cancer FATHER Social History Smoking Status: Former Smoker Alcohol Use: none Drug Use: none Marital Status: Housing Status: lives with family Occupation Status: retired Current/Historical Medications Scheduled Amlodipine Besylate (Amlodipine Besylate), 10 MG PO QPM Cholestyramine Light (Prevalite), 0 PO UD Lansoprazole (Prevacid Solutab), 30 MG PO QPM Levothyroxine Sodium (Levothyroxine Sodium), 100 MCG PO QAM Losartan Potassium (Cozaar), 100 MG PO QAM Rivaroxaban (Xarelto), 15 MG PO BID Vancomycin HCl (First-Vancomycin 50), Unknown Dose PO BID Scheduled PRN Lorazepam (Lorazepam), 0.5 MG PO HS PRN for insomnia Allergies Coded Allergies: Iodinated Diagnostic Agents (Verified Allergy, Severe, sob, 09/23/17) Azithromycin (Verified Allergy, Intermediate, RASH, 09/23/17) Levalbuterol Hydrochloride (Verified Allergy, Intermediate, CHEST PAIN, ) Minocycline (Verified Allergy, Intermediate, RASH, 09/23/17) Iodine (Verified Allergy, Mild, IV CONTRAST, 09/23/17) Cefaclor (Verified Allergy, Unknown, HIVES, 09/23/17) Erythromycin (Verified Allergy, Unknown, HIVES, 09/23/17) Nitrofurantoin (Verified Allergy, Unknown, 09/23/17) Phenazopyridine (Verified Allergy, Unknown, sob, 09/23/17) Sulfa Antibiotics (Verified Allergy, Unknown, HIVES, 09/23/17) Levofloxacin (Verified Adverse Reaction, Intermediate, ABDOMINAL PAIN, ) Metronidazole (Verified Adverse Reaction, Intermediate, GI SYMPTOMS, ) C-diff Morphine (Verified Adverse Reaction, Intermediate, EXCESSIVE VOMITING, ) Pt. states excessive vomiting with this medication Physical Exam Vital Signs Date Time Temp Pulse Resp B/P (MAP) Pulse Ox O2 Delivery O2 Flow Rate FiO2 09/23/17 15:08 74 14 137/79 96 Room Air 09/23/17 13:50 88 18 156/70 96 Room Air 09/23/17 13:00 76 16 162/61 96 09/23/17 12:08 82 09/23/17 12:00 82 21 176/79 94 Room Air 09/23/17 11:07 81 20 134/45 96 Room Air 09/23/17 10:06 74 20 144/62 98 Room Air 09/23/17 08:30 76 18 129/66 96 Room Air 09/23/17 07:37 85 09/23/17 07:30 98 Room Air 09/23/17 07:03 36.5 91 18 143/77 98 Room Air Physical Exam GENERAL: Awake, alert, well-appearing, in no distress HENT: Normocephalic, atraumatic. Oropharynx unremarkable. EYES: Normal conjunctiva. Sclera non-icteric. NECK: Supple. No nuchal rigidity. FROM. No JVD. RESPIRATORY: Clear to auscultation. CARDIAC: Regular rate, normal rhythm. Extremities warm and well perfused. Pulses equal. ABDOMEN: There is a wound vac present over the mid abdomen. Wound looks good, no erythema. Soft, non-distended. Tenderness to palpation over the RLQ. No rebound or guarding. No masses. RECTAL: Deferred. MUSCULOSKELETAL: Chest examination reveals no tenderness. The back is symmetrical on inspection without obvious abnormality. There is no CVA tenderness to palpation. No joint edema. LOWER EXTREMITIES: Calves are equal size bilaterally and non-tender. No edema. No discoloration. NEURO: Normal sensorium. No sensory or motor deficits noted. SKIN: No rash or jaundice noted. : Speculum exam reveals blood in the vault. No obvious fistula seen. There is some dark blood coming from the cervical os. Medical Decision & Procedures ER Provider Diagnostic Interpretation: Radiology results as stated below per my review and radiologist interpretation: CT SCAN OF THE ABDOMEN AND PELVIS WITHOUT IV CONTRAST CLINICAL HISTORY: Lower abdominal pain. Vaginal bleeding. COMPARISON STUDY: Multiple prior abdominal CT scans, most recently dated 07/27/2017. TECHNIQUE: CT scan of the abdomen and pelvis is performed from the lung bases to the proximal femora. Images are reviewed in the axial, sagittal, and coronal planes. IV contrast was not administered for this examination as per the referring clinician. Note that the examination was performed in significantly suboptimal fashion without oral and IV contrast. A dose lowering technique was utilized adhering to the principles of ALARA. CT DOSE: 551.55 mGy.cm FINDINGS: Lung bases: The heart is top normal in size and without pericardial effusion. The lung bases are clear. Liver: The unenhanced liver is normal in size, contour, and attenuation. There are numerous hepatic cysts. The largest is located in the right lobe and measures 3.8 cm. There is no intrahepatic biliary ductal dilatation. Gallbladder: Surgically absent noting clips in the gallbladder fossa. Spleen: Normal in size and attenuation. There are calcified splenic granulomas. Pancreas: A 1.4 cm IPMN is again suggested in the pancreatic head. The unenhanced pancreas is atrophic and otherwise grossly unremarkable. Adrenal glands: Unremarkable. Kidneys: The unenhanced kidneys demonstrate cortical atrophy and are without hydronephrosis. There are no renal calculi identified. There is no evidence of contour deforming renal mass lesion. Parapelvic cysts are suggested on the left. Abdominal vasculature: The abdominal aorta is normal in course and caliber noting moderate atherosclerotic calcification. Bowel: There are postoperative changes from sigmoid colon resection with colocolonic anastomosis. There is mild to moderate diverticulosis of the remaining colon without CT evidence of acute diverticulitis. Fecal retention is present in the right colon. A small bowel anastomosis is noted in the pelvis above the uterus. No bowel obstruction is identified. The appendix is not identified and reported surgically absent. Peritoneum: There is no intraperitoneal free air or abdominal ascites. A midline surgical incision is noted in the pelvis. Presacral soft tissue thickening and induration persists. This has significantly improved from previous. No organized fluid collection is identified. Lymphadenopathy: None. Pelvic viscera: The bladder is partially decompressed and grossly unremarkable. The uterus and adnexa are normal appearance . There is evidence of previous right inguinal herniorrhaphy. There is gas present within the vagina. A rectovaginal fistula cannot be excluded. Skeletal structures: The skeletal structures are osteopenic. There are bilateral pars defects of L5. Mild lumbosacral spondylosis is observed. No lytic or blastic lesions are seen. IMPRESSION: 1. Suboptimal examination without oral and IV contrast. 2. No acute infectious or inflammatory findings are clearly identified in the abdomen or pelvis. 3. Nonspecific gas is present within the vagina. A rectovaginal fistula would be impossible to exclude. Clinical correlation will be required. 4. There are postoperative changes from sigmoid colon resection, and a small bowel anastomosis is present in the pelvis. No bowel obstruction is seen. 5. Additional findings as above. Electronically signed by: Jeremiah Estrella M.D. 09/23/2017 10:59 AM Dictated Date/Time: 09/23/2017 10:49 AM Laboratory Results 09/23/17 07:45 Red Blood Count 4.51, Mean Corpuscular Volume 82.0, Mean Corpuscular Hemoglobin 28.2, Mean Corpuscular Hemoglobin Concent 34.3, Mean Platelet Volume 10.2, Neutrophils (%) (Auto) 55.9, Lymphocytes (%) (Auto) 33.3, Monocytes (%) (Auto) 6.8, Eosinophils (%) (Auto) 3.2, Basophils (%) (Auto) 0.6, Neutrophils # (Auto) 2.65, Lymphocytes # (Auto) 1.58, Monocytes # (Auto) 0.32, Eosinophils # (Auto) 0.15, Basophils # (Auto) 0.03 09/23/17 07:45 Test 09/23/17 07:45 09/23/17 10:46 White Blood Count 4.74 K/uL (4.8-10.8) Red Blood Count 4.51 M/uL (4.2-5.4) Hemoglobin 12.7 g/dL (12.0-16.0) Hematocrit 37.0 % (37-47) Mean Corpuscular Volume 82.0 fL (80-100) Mean Corpuscular Hemoglobin 28.2 pg (25-34) Mean Corpuscular Hemoglobin Concent 34.3 g/dl (32-36) Platelet Count 297 K/uL (130-400) Mean Platelet Volume 10.2 fL (7.4-10.4) Neutrophils (%) (Auto) 55.9 % Lymphocytes (%) (Auto) 33.3 % Monocytes (%) (Auto) 6.8 % Eosinophils (%) (Auto) 3.2 % Basophils (%) (Auto) 0.6 % Neutrophils # (Auto) 2.65 K/uL (1.4-6.5) Lymphocytes # (Auto) 1.58 K/uL (1.2-3.4) Monocytes # (Auto) 0.32 K/uL (0.11-0.59) Eosinophils # (Auto) 0.15 K/uL (0-0.5) Basophils # (Auto) 0.03 K/uL (0-0.2) RDW Standard Deviation 47.0 fL (36.4-46.3) RDW Coefficient of Variation 15.7 % (11.5-14.5) Immature Granulocyte % (Auto) 0.2 % Immature Granulocyte # (Auto) 0.01 K/uL (0.00-0.02) Prothrombin Time 11.2 SECONDS (9.0-12.0) Prothromb Time International Ratio 1.1 (0.9-1.1) Activated Partial Thromboplast Time 31.5 SECONDS (21.0-31.0) Partial Thromboplastin Ratio 1.2 Anion Gap 10.0 mmol/L (3-11) Est Creatinine Clear Calc Drug Dose 52.9 ml/min Estimated GFR () 78.8 Estimated GFR (Non- 68.0 BUN/Creatinine Ratio 19.0 (10-20) Calcium Level 9.8 mg/dl (8.5-10.1) Total Bilirubin 0.6 mg/dl (0.2-1) Direct Bilirubin 0.1 mg/dl (0-0.2) Aspartate Amino Transf (AST/SGOT) 7 U/L (15-37) Alanine Aminotransferase (ALT/SGPT) 14 U/L (12-78) Alkaline Phosphatase 78 U/L (45-117) Total Protein 6.8 gm/dl (6.4-8.2) Albumin 3.5 gm/dl (3.4-5.0) Lipase 144 U/L (73-393) Urine Color YELLOW Urine Appearance CLEAR (CLEAR) Urine pH 5.5 (4.5-7.5) Urine Specific [place] 1.018 (1.000-1.030) Urine Protein NEG (NEG) Urine Glucose (UA) NEG (NEG) Urine Ketones TRACE (NEG) Urine Occult Blood NEG (NEG) Urine Nitrite NEG (NEG) Urine Bilirubin NEG (NEG) Urine Urobilinogen NEG (NEG) Urine Leukocyte Esterase NEG (NEG) Laboratory results reviewed by me Medications Administered Medications (Trade) Dose Ordered Sig/Barb Route Start Time Stop Time Status Last Admin Dose Admin Sodium Chloride 500 ml @ 999 mls/hr Q31M STAT IV 09/23/17 09:36 09/23/17 10:06 DC 09/23/17 09:36 999 MLS/HR Sodium Chloride 1,000 ml @ 125 mls/hr Q8H STAT IV 09/23/17 09:36 09/23/17 17:35 09/23/17 11:06 125 MLS/HR Hydromorphone HCl (Dilaudid Inj) 1 mg Q15M PRN IV 09/23/17 09:45 10/07/17 09:44 09/23/17 13:16 1 MG Ondansetron HCl (Zofran Inj) 4 mg NOW STAT IV 09/23/17 09:36 09/23/17 09:39 DC 09/23/17 10:07 4 MG Hydromorphone HCl (Dilaudid Inj) 0.5 mg NOW STAT IV 09/23/17 14:46 09/23/17 14:47 DC 09/23/17 14:46 0.5 MG ED Course 0727: The patient was evaluated in room B9. A complete history and physical exam was performed. 0936: Ordered Zofran 4 mg IV, Sodium Chloride 1000 mL @ 125 mL/hr IV, Sodium Chloride 500 mL @ 999 mL/hr IV. 0945: Ordered Dilaudid Inj 1 mg IV. 1110: I checked on the patient at this time. she is resting in bed. 1238: The patient is doing good at this time. 1419: I checked on the patient. I performed a speculum exam and updated her on the results of the case. See PE for further exam findings. 1446: I discussed the case with Dr. Basilio MIRANDA. She advised the patient to call the office tomorrow to set up a follow-up appointment. The patient will be discharged home. Medical Decision Prior records/ancillary studies reviewed. Triage Nursing notes reviewed and agree them. Additional history obtained from the family. The patient's history was concerning for vaginal bleeding and abdominal pain. Differential diagnosis: Etiologies such as coagulopathy, postmenopausal bleeding, dysfunction uterine bleeding, bleeding dyscrasia, trauma, infection, fistula, as well as others were entertained. Physical examination: As above. Minor bleeding from the cervical os. Dark blood. No hemorrhage. ER treatment provided: IV saline hydration IV Zofran IV Dilaudid On reassessment the patient felt better. Diagnostic interpretation by me: The labs revealed the patient to the Rh positive. CBC, coagulation studies, and chemistries were unremarkable. Urinalysis unremarkable. No significant hematuria present. Imaging studies: CT scan and Ultrasound as above The patient had a questionable rectovaginal fistula noted on CT scan. She is having vaginal bleeding but on examination this is coming from the cervical os. I could not clearly see any fistula. She is on blood thinners secondary to a blood clot. She is not having any significant bleeding I discussed continuing the blood thinner due to the risk for DVT and PE. The patient felt comfortable with this plan. If her bleeding worsens she will come back to the emergency department. She will need close follow-up with [facility]. Consultation: A consultation was placed with the tear down matcher physician, Dr Richmond. The case was discussed and diagnostics were reviewed. The patient will be followed up in the office. By the evaluation outlined above other emergent etiologies such as those listed in the differential, as well as others, were deemed relatively unlikely. The patient was educated about the findings as listed above. All questions were answered and the patient was pleased with the treatment. Return instructions were outlined and the patient was discharged in stable condition. The patient was referred to [facility] for follow-up for a recheck of the current condition. Consults Time Called: 1440 Consulting Physician: Dr. Basilio MIRANDA Returned Call: 0438 I discussed the case with Dr. Basilio MIRANDA. She advised the patient to call the office tomorrow to set up a follow-up appointment. Impression Primary Impression: Post-menopause bleeding Additional Impressions: Lower abdominal pain possible rectal-vaginal fistual Scribe Attestation The scribe's documentation has been prepared under my direction and personally reviewed by me in its entirety. I confirm that the note above accurately reflects all work, treatment, procedures, and medical decision making performed by me. Departure Information Dispostion Home / Self-Care Referrals No Doctor, Assigned (PCP) Forms HOME CARE DOCUMENTATION FORM, IMPORTANT VISIT INFORMATION, WORK / SCHOOL INSTRUCTIONS Patient Instructions My [facility] Additional Instructions Continue current medications. Continue your current wound care. Follow-up with [facility] tomorrow by phone. The number is listed below under Dr. Jalen Richmond. Return to the ER for worsening abdominal pain, vomiting, fevers, bloody stools, worsening bleeding, lightheadedness, feeling as you may pass out, or as needed. Problem Qualifiers
[2017-09-23 08:14] LABS: BASO % 0.6 %; BASO ABS # 0.03 K/uL (0-0.2); EOS % 3.2 %; EOS ABS # 0.15 K/uL (0-0.5); HEMOGLOBIN 12.7 g/dL (12.0-16.0); IG# 0.01 K/uL (0.00-0.02); LYMPH % 33.3 %; LYMPH ABS # 1.58 K/uL (1.2-3.4); MEAN CORPUSCULAR HEMOGLOBIN 28.2 pg (25-34); MEAN CORPUSCULAR HGB CONC 34.3 g/dl (32-36); MEAN PLATELET VOLUME 10.2 fL (7.4-10.4); MONO % 6.8 %; MONO ABS # 0.32 K/uL (0.11-0.59); NEUT % 55.9 %; NEUT ABS # 2.65 K/uL (1.4-6.5); PLATELET COUNT 297 K/uL (130-400); RED CELL DISTRIBUTION WIDTH CV 15.7 % (11.5-14.5); WHITE BLOOD COUNT 4.74 K/uL (4.8-10.8)
[2017-09-23 08:22] LABS: INR 1.1 (0.9-1.1); PTT PATIENT 31.5 SECONDS (21.0-31.0)
[2017-09-23 08:30] LABS: ALBUMIN 3.5 gm/dl (3.4-5.0); CALCIUM 9.8 mg/dl (8.5-10.1); CREATININE 0.85 mg/dl (0.60-1.20); POTASSIUM 3.3 mmol/L (3.5-5.1)
[2017-09-23 08:33] LABS: TOTAL PROTEIN 6.8 gm/dl (6.4-8.2)
[2017-09-23] MEDS ORDERED: SODIUM CHLORIDE 0.9% 1000ML 1,000 ML IV STA (09:36)
[2017-09-23] MEDS ORDERED: SODIUM CHLORIDE 0.9% 500ML 500 ML IV STA (09:36)
[2017-09-23] MEDS ORDERED: ONDANSETRON INJ 2 MG/ML 2 ML VIAL IV STA (09:36)
[2017-09-23] MEDS: HYDROmorphone INJ 1 MG/ML SYR IV PRN ×2 (10:08→13:16)
--- NOTE | 2017-09-23 11:00 | DIAGNOSTIC IMAGING REPORT ---
CT SCAN OF THE ABDOMEN AND PELVIS WITHOUT IV CONTRAST CLINICAL HISTORY: Lower abdominal pain. Vaginal bleeding. COMPARISON STUDY: Multiple prior abdominal CT scans, most recently dated 07/27/2017. TECHNIQUE: CT scan of the abdomen and pelvis is performed from the lung bases to the proximal femora. Images are reviewed in the axial, sagittal, and coronal planes. IV contrast was not administered for this examination as per the referring clinician. Note that the examination was performed in significantly suboptimal fashion without oral and IV contrast. A dose lowering technique was utilized adhering to the principles of ALARA. CT DOSE: 551.55 mGy.cm FINDINGS: Lung bases: The heart is top normal in size and without pericardial effusion. The lung bases are clear. Liver: The unenhanced liver is normal in size, contour, and attenuation. There are numerous hepatic cysts. The largest is located in the right lobe and measures 3.8 cm. There is no intrahepatic biliary ductal dilatation. Gallbladder: Surgically absent noting clips in the gallbladder fossa. Spleen: Normal in size and attenuation. There are calcified splenic granulomas. Pancreas: A 1.4 cm IPMN is again suggested in the pancreatic head. The unenhanced pancreas is atrophic and otherwise grossly unremarkable. Adrenal glands: Unremarkable. Kidneys: The unenhanced kidneys demonstrate cortical atrophy and are without hydronephrosis. There are no renal calculi identified. There is no evidence of contour deforming renal mass lesion. Parapelvic cysts are suggested on the left. Abdominal vasculature: The abdominal aorta is normal in course and caliber noting moderate atherosclerotic calcification. Bowel: There are postoperative changes from sigmoid colon resection with colocolonic anastomosis. There is mild to moderate diverticulosis of the remaining colon without CT evidence of acute diverticulitis. Fecal retention is present in the right colon. A small bowel anastomosis is noted in the pelvis above the uterus. No bowel obstruction is identified. The appendix is not identified and reported surgically absent. Peritoneum: There is no intraperitoneal free air or abdominal ascites. A midline surgical incision is noted in the pelvis. Presacral soft tissue thickening and induration persists. This has significantly improved from previous. No organized fluid collection is identified. Lymphadenopathy: None. Pelvic viscera: The bladder is partially decompressed and grossly unremarkable. The uterus and adnexa are normal appearance . There is evidence of previous right inguinal herniorrhaphy. There is gas present within the vagina. A rectovaginal fistula cannot be excluded. Skeletal structures: The skeletal structures are osteopenic. There are bilateral pars defects of L5. Mild lumbosacral spondylosis is observed. No lytic or blastic lesions are seen. IMPRESSION: 1. Suboptimal examination without oral and IV contrast. 2. No acute infectious or inflammatory findings are clearly identified in the abdomen or pelvis. 3. Nonspecific gas is present within the vagina. A rectovaginal fistula would be impossible to exclude. Clinical correlation will be required. 4. There are postoperative changes from sigmoid colon resection, and a small bowel anastomosis is present in the pelvis. No bowel obstruction is seen. 5. Additional findings as above. Electronically signed by: Jeremiah Estrella M.D. 09/23/2017 10:59 AM Dictated Date/Time: 09/23/2017 10:49 AM
--- NOTE | 2017-09-23 13:52 | DIAGNOSTIC IMAGING REPORT ---
PELVIC ULTRASOUND, TRANSABDOMINAL HISTORY: post menopausal bleeding, ? rectovaginal fistula on CT COMPARISON: Abdomen and pelvis CT 09/23/2017. FINDINGS: The patient deferred transvaginal scanning. The uterus and ovaries were obscured by overlying bowel gas. No fluid collections are masses identified within the pelvis. The bladder was unable to be visualized. The patient has an overlying bandage within the lower abdomen/pelvis which also results in suboptimal evaluation. IMPRESSION: Near nondiagnostic evaluation of the pelvis due to the overlying bowel gas. No fluid collections identified. Electronically signed by: Chencho Leonardo M.D. 09/23/2017 1:50 PM Dictated Date/Time: 09/23/2017 1:49 PM
[2017-09-23] MEDS ORDERED: HYDROmorphone INJ 0.5 MG/0.5 ML SYR IV STA (14:46)
[2017-09-23 15:08] VITALS: BP 137/79; PULSE 74; O2SAT 96
== END 2017-09-23 15:23 | disposition home or self-care (01) ==
LOC: C.EDB 07:01
DX: N95.0 Postmenopausal bleeding (principal); R10.30 Lower abdominal pain, unspecified; R19.7 Diarrhea, unspecified; M54.9 Dorsalgia, unspecified; K21.9 Gastro-esophageal reflux disease without esophagitis; I10 Essential (primary) hypertension; E78.5 Hyperlipidemia, unspecified; E03.9 Hypothyroidism, unspecified; Z79.01 Long term (current) use of anticoagulants; Z79.899 Other long term (current) drug therapy; Z97.8 Presence of other specified devices; Z87.19 Personal history of other diseases of the digestive system; Z87.891 Personal history of nicotine dependence; Z80.3 Family history of malignant neoplasm of breast; Z80.1 Family history of malignant neoplasm of trachea, bronchus and lung

== ENCOUNTER 2020-05-31 11:21 | Observation (INO) ==
--- NOTE | 2020-05-01 14:14 | PAT Medication Instructions ---
Medication Instructions Date of Service May 01, 2020 Home Medications Medication Instructions Recorded albuterol sulfate 2 puffs INH 6XD PRN #6.7 gm 08/18/19 acetaminophen [Children's Tylenol] 480 mg PO TID amlodipine 10 mg PO HS cyanocobalamin (vitamin B-12) [Vitamin B-12] 1,000 mcg PO QAM lansoprazole 30 mg PO QDL lorazepam 0.25 mg PO UD PRN losartan 100 mg PO QAM albuterol sulfate 2 puffs INH 6XD PRN levothyroxine 137 mcg PO QAM DO NOT take the morning of surgery cyanocobalamin (vitamin B-12) [Vitamin B-12] 1,000 mcg PO QAM losartan 100 mg PO QAM Take morning of surgery With a small sip of water, OTHERWISE NOTHING TO EAT OR DRINK AFTER MIDNIGHT: acetaminophen [Children's Tylenol] 480 mg PO TID (okay to take up to 4 hours prior to surgery if needed) lansoprazole 30 mg PO QDL lorazepam 0.25 mg PO UD PRN (if needed) albuterol sulfate 2 puffs INH 6XD PRN (if needed) levothyroxine 137 mcg PO QAM Take evening before surgery acetaminophen [Children's Tylenol] 480 mg PO TID amlodipine 10 mg PO HS lorazepam 0.25 mg PO UD PRN (if needed) albuterol sulfate 2 puffs INH 6XD PRN (if needed) Other Notes If you have any questions please call us at [phone] or [phone] or [phone] or [phone]
--- NOTE | 2020-05-02 11:29 | Anesthesiology Consultation ---
Date of Service May 02, 2020 Assessment & Plan (1) Encounter for pre-operative examination: - Awaiting stress test report (08/2019; S). - Per assessment on 05/02: Travel screen- Lives in [facility]. Returned from [facility] 3 weeks ago to [place], [place] (personal [place] house). Patient has plans to travel to her beach house again 05/03-05/08 (patient reports that they will be alone in personal beach house/not interact with others/strictly follow COVID precaution guidelines during travel). Return from travel will be 2+ weeks from date of surgery. Patient uses PPE/social distancing/frequent hand washing. No known COVID-19 positive contacts or current COVID-19 related symptoms. Surgeon arranging preop COVID testing. Awaiting results. - S/P D&C, hysteroscopy: 10/24/17: LMA# 4 at [facility] Chart Review Chart Review: Patient seen in Pre Admission Testing Teaching & Discussion Pre-Anesthesia Teaching/Discussion Notes: Instructed NPO after midnight before surgery,except medications with 15 cc of water. Medication instructions provided according to the PAT guidelines. History Surgery Operation Date: 05/31/20 09:30 Proposed Procedures p Right Total Knee Arthroplasty - Derek Corona MD Height/Weight Height: 5 ft 1 in Weight: 85.5 kg Allergies Allergy/AdvReac Type Severity Reaction Status Date / Time Iodinated Contrast Media Allergy Severe dyspnea Verified 05/02/20 13:31 azithromycin Allergy Intermediate rash Verified 05/02/20 13:31 levalbuterol Allergy Intermediate chest pain Verified 05/02/20 13:31 minocycline Allergy Intermediate rash Verified 05/02/20 13:31 iodine Allergy Mild IV Verified 05/02/20 13:31 contrast- dyspnea cefaclor Allergy Unknown hives Verified 05/02/20 13:31 erythromycin base Allergy Unknown hives Verified 05/02/20 13:31 nitrofurantoin Allergy Unknown possible Verified 05/02/20 13:31 hives or dyspnea phenazopyridine Allergy Unknown dyspnea Verified 05/02/20 13:31 Sulfa (Sulfonamide Allergy Unknown hives Verified 05/02/20 13:31 Antibiotics) levofloxacin AdvReac Intermediate abdominal Verified 05/02/20 13:31 pain metronidazole AdvReac Intermediate GI symptoms Verified 05/02/20 13:31 morphine AdvReac Intermediate vomiting Verified 05/02/20 13:31 Medications Home Medications Medication Instructions Recorded Confirmed Last Taken amlodipine 10 mg PO HS 07/08/19 04/25/20 07/07/19 cyanocobalamin (vitamin B-12) 1,000 mcg PO QAM 07/08/19 04/25/20 07/08/19 [Vitamin B-12] lansoprazole 30 mg PO QDL 07/08/19 04/25/20 07/07/19 lorazepam 0.25 mg PO UD PRN 07/08/19 04/25/20 07/08/19 losartan 100 mg PO QAM 07/08/19 04/25/20 07/08/19 levothyroxine 137 mcg PO QAM 04/25/20 04/25/20 Unknown Benadryl 0.5 tab PO HS 05/02/20 05/02/20 Unknown acetaminophen [Tylenol Arthritis] 650 mg PO Q12H 05/02/20 05/02/20 Unknown Past Medical History Medical History Cancer left breast (2015) s/p left lumpectomy/XRT, no chemo GERD (gastroesophageal reflux disease) controlled Hiatal hernia HLD (hyperlipidemia) HTN (hypertension) Hx of blood clots LLE post-op bowel resection (2016) s/p tx, no issues since Hypothyroidism Hypothyroidism Obesity Osteoarthritis Exercise / Class Metabolic Activity II 4-5 Yardwork/Stairs/Walk up hill Past Family History Family History Other No pertinent family history Past Surgical History Surgical History H/O foot surgery R ORIF History of appendectomy History of carpal tunnel release R/L History of colectomy D/T DIVERTICULITIS History of colonoscopy MULTIPLE History of D&C D&C, hysteroscopy: 10/24/17: LMA# 4 at [facility] History of esophagogastroduodenoscopy (EGD) History of lumpectomy of left breast 2015 History of tonsillectomy Past Anesthesia History No Hx of Anesthesia Complications and No Family Hx of Anesthesia Complications History of PONV No Hx of PONV and No Hx of Motion Sickness Social History Smoking Status: Former smoker Do You Dip or Chew Tobacco: No Smoking End Date: QUIT AGE 24 YRS Hx Alcohol Use: No Hx Substance Use: No Review of Systems Patient denies chest pain, shortness of breath, dyspnea on exertion, joint pain, reflux, cough, wheezing, palpitations. Physical Exam Vital Signs VITALS BP 140/84 P 62 TEMP 98.0 SP02 95%RA RESP 18 PHYSICAL Full neck and c-spine range of motion. Full TMJ range of motion. TMD 3.5 finger breaths Mallampati Score 2 Dentition: intact, + implants several all over, upper front crowns Lungs: clear throughout to auscultation Cardiac: regular rate and rhythm, no murmurs noted Spine: normal Carotid arteries: negative bruit Extremities: no edema Testing Laboratory Results 05/02/20 12:01 05/02/20 12: PT 10.0 Seconds (9.0-12.0) 05/02/20 12: INR 0.9 (0.9-1.1) 05/02/20 12: APTT 27.1 Seconds (21.0-31.0) 05/02/20 12:01 Hemoglobin A1c 5.4 % (4.5-5.6) 05/02/20 12:01 Urine Color Dark Yellow 05/02/20 Unknown Urine Appearance Clear (Clear) 05/02/20 Unknown Urine pH 5.0 (4.5-7.5) 05/02/20 Unknown Ur Specific [place] 1.033 (1.000-1.030) H 05/02/20 Unknown Urine Protein Trace (Negative) H 05/02/20 Unknown Urine Glucose (UA) Negative (Negative) 05/02/20 Unknown Urine Ketones Trace (Negative) H 05/02/20 Unknown Urine Nitrite Negative (Negative) 05/02/20 Unknown Ur Leukocyte Esterase Negative (Negative) 05/02/20 Unknown Urine WBC (Auto) 5-10 /hpf (0-5) H 05/02/20 Unknown Urine RBC (Auto) 0-4 /hpf (0-4) 05/02/20 Unknown U Hyaline Cast (Auto) 1-5 /lpf (0-5) 05/02/20 Unknown U Epithel Cells (Auto) >30 /lpf (0-5) H 05/02/20 Unknown Urine Bacteria (Auto) Negative (Negative) 05/02/20 Unknown Blood Type O Positive 05/02/20 12:01 Antibody Screen NEGATIVE 05/02/20 12:01 Electrocardiogram Date: 08/24/19 NSR at 64bpm. Suggestive of RVCD. NS STA. Chest X-Ray Date: 08/24/19 FINDINGS: Cardiac silhouette is enlarged, unchanged. Calcified plaque the thoracic aortic arch. Mild chronic interstitial coarsening of the lung bases with mild unchanged lingular atelectasis/scarring. No pneumothorax, large pleural effusion, overt pulmonary edema or airspace consolidation typical for pneumonia. Degenerative changes of the shoulders and spine. Cholecystectomy. IMPRESSION: No acute process. Echocardiogram Date: 12/21/14 LVEF 55-59%. No RWMA. Grade I DD. Moderately increased cLV wall thickness. No significant valvular disease. Mild functional MR.
[2020-05-02 12:32] LABS: Basophils # (auto) 0.02 K/uL (0-0.2); Basophils % (auto) 0.3 %; Eosinophils # (auto) 0.17 K/uL (0-0.5); Eosinophils % (auto) 2.3 %; Hemoglobin 12.9 g/dL (12.0-16.0); Immature Granulocytes # (auto) 0.02 K/uL (0.00-0.02); Immature Granulocytes % (auto) 0.3 %; Lymphocytes # (auto) 1.87 K/uL (1.2-3.4); Lymphocytes % (auto) 24.9 %; Mean Corpuscular Hemoglobin 28.5 pg (25-34); Mean Corpuscular Hgb Conc 33.1 g/dL (32-36); Mean Corpuscular Volume 86.3 fL (80-100); Mean Platelet Volume 10.1 fL (7.4-10.4); Monocytes # (auto) 0.41 K/uL (0.11-0.59); Monocytes % (auto) 5.5 %; Neutrophils # (auto) 5.03 K/uL (1.4-6.5); Neutrophils % (auto) 66.7 %; Platelet Count 284 K/uL (130-400); RDW Coefficient of Variation 14.6 % (11.5-14.5); Red Blood Count 4.52 M/uL (4.2-5.4); White Blood Count 7.52 K/uL (4.8-10.8)
[2020-05-02 12:36] LABS: Appearance Urine Clear (Clear); Bacteria Urine Automated Negative (Negative); Bilirubin Urine Negative (Negative); Blood Urine Negative (Negative); Color Urine Dark Yellow; Epithelial Cell Urine Auto >30 /lpf (0-5); Glucose Urine UA Negative (Negative); Ketones Urine Trace (Negative); Leukocyte Esterase Urine Negative (Negative); Nitrite Urine Negative (Negative); Protein Urine Trace (Negative); RBC Urine Automated 0-4 /hpf (0-4); Specific Gravity Urine 1.033 (1.000-1.030); Urobilinogen Urine Negative (Negative)
[2020-05-02 12:44] LABS: INR 0.9 (0.9-1.1); Partial Thromboplastin Time 27.1 Seconds (21.0-31.0)
[2020-05-02 12:45] LABS: Estimated Average Glucose 108 mg/dl; Hemoglobin A1C 5.4 % (4.5-5.6)
[2020-05-02 12:55] LABS: Albumin Level 3.6 gm/dl (3.4-5.0); BUN Creatinine Ratio 20.2 (10-20); Calcium 9.2 mg/dl (8.5-10.1); Creatinine Clr Calc Pharmacy 64.3 ml/min; Est GFR (African American) 90.4; Potassium 4.1 mmol/L (3.5-5.1)
--- NOTE | 2020-05-30 17:34 | History and Physical Report ---
DATE OF ADMISSION: 05/31/2020 CHIEF COMPLAINT: Chronic right knee pain. HISTORY OF PRESENT ILLNESS: This is a 74-year-old female patient of Dr. Corona'rip complaining of chronic right knee pain, longstanding, now progressively getting worse. The patient has failed conservative treatment including intraarticular injections, topical ointments and home exercise program. The patient has increased pain with weightbearing activities and her pain does interfere with her activities of daily living. The patient has been diagnosed with end-stage osteoarthritis per clinical and radiographic exams and wishes to proceed with a right total knee arthroplasty. PAST MEDICAL HISTORY: Hypertension, hypercholesterolemia, hypothyroidism, osteoarthritis, acid reflux, hiatal hernia, obesity, breast cancer. SOCIAL HISTORY: Nonsmoker and nondrinker. PAST SURGICAL HISTORY: Knee surgery, colon surgery, breast surgery, tonsil surgery and hernia surgery. FAMILY HISTORY: Noncontributory. REVIEW OF SYSTEMS: Chronic right knee pain and instability. Otherwise, denies any shortness of breath, chest pain, nausea, vomiting or any other joint complaints. MEDICATIONS: 1. Lorazepam 0.5 mg at bedtime as needed. 2. Levothyroxine 125 mcg daily. 3. Vitamin D3 10 mcg daily. 4. Questran 4 mg powder 2 times to dissolve in 2-6 ounces of water as needed. 5. Amlodipine 10 mg daily. 6. Losartan 50 mg 2 tablets daily. 7. Fluocinonide 0.05% topical solution to affected area daily as needed. 8. Calcium carbonate 600 mg as needed. 9. Lansoprazole 30 mg as needed. ALLERGIES: AZITHROMYCIN, CEFACLOR, IODINATED CONTRAST, IODINE, LABETALOL, LEVOTHYROXINE, MINOCYCLINE, NITROFURANTOIN, OXYCODONE, PYRIDIUM, SULFA, TRAMADOL. PHYSICAL EXAMINATION: GENERAL: Well-developed, well-nourished 74-year-old female in no acute distress. She is alert and oriented x3 and pleasant. HEENT: Normocephalic, atraumatic. Extraocular motions are intact. Pupils equal and reactive to light. HEART: Regular rate and rhythm, no murmurs. LUNGS: Clear. ABDOMEN: Soft, nontender, bowel sounds present. EXTREMITIES: Right lower extremity, mild effusion. Range of motion of 0-120, crepitation with passive range of motion and pain, 5/5 strength with pain. Neurologically and neurovascularly, she is intact in her right lower extremity. DIAGNOSES: Right knee end-stage osteoarthritis, hypertension, hypercholesterolemia, hypothyroidism, osteoarthritis, history of breast cancer, acid reflux, hiatal hernia, obesity. PLAN: The patient was advised of her diagnosis. Indications, risks, benefits, postop course have all been reviewed. The patient wished to proceed with a right total knee arthroplasty. Necessary consent forms, preoperative testing and clearances will be obtained.
[~2020-05-31 11:21] MED LIST changes: +ACETAMINOPHEN 500 MG TAB PO SCH; -ATV5X PO; +BUPIVACAINE 0.25% 30 ML VIAL ONE; +BUPIVACAINE 0.5 % 5 MG/1 ML PF 10ML VIAL ONE; +CEFAZOLIN 2000MG 2,000 MG/15 ML SYR IV SCH; -CHOL4POW5 PO; +FAMOTIDINE 20 MG TAB PO SCH; -LANS30TA3 PO; -LEVO100T7 PO; -LOSA50TA54 PO; +LR 500ML BOLUS, THEN 15ML/HR IV SCH; +METOCLOPRAMIDE HCL 10 MG TABLET PO SCH; -NRV/5 PO; +ROPIVACAINE 0.5% HCL/PF 150 MG, BUPIVACAINE 0.5% MPF 30 ML, EPINEPHrine 30MG/30ML (OR U... INSTIL SCH; +TRANEXAMIC ACID 1,000 MG **IV Intra-op IV SCH; +TRANEXAMIC ACID 1,000 MG **IV Pre-op IV SCH; -VANC1SOL3 PO; -XRL10 PO; +dexAMETHasone 4 MG TAB PO SCH
[2020-05-31] MEDS: GABAPENTIN 300 MG CAP PO SCH ×2 (11:45→19:39)
--- NOTE | 2020-05-31 13:08 | History & Physical Bridge Note ---
Date of Service May 31, 2020 History & Physical Bridge Note I have examined the patient, reviewed the History & Physical and in the interval since the performance of the History & Physical I have noted the following changes of clinical significance: no changes noted
[2020-05-31] MEDS ORDERED: VANCOMYCIN HCL 1,000 MG/270 ML BAG IV STA (14:50)
[2020-05-31] MEDS ORDERED: VANCOMYCIN CONSULT ACTIVE PRN ×2 (14:50→19:20)
[2020-05-31] MEDS ORDERED: VANCOMYCIN HCL 1 GM/270 ML BAG ONE (14:51)
[2020-05-31] MEDS ORDERED: PHENYLEPHRINE 100MCG/ML 5ML SYR ONE (14:52)
[2020-05-31] MEDS ORDERED: ORTHO JOINT ANESTHETIC ONE (14:52)
[2020-05-31] MEDS ORDERED: PROPOFOL IV EMULSION 10 MG/ML 20 ML VIAL IV ONE ×2 (14:52→17:25)
[2020-05-31] MEDS ORDERED: LIDOCAINE HCL 2% 2 ML VIAL/AMP(20MG/ML) INFIL ONE (14:52)
[2020-05-31] MEDS ORDERED: BACITRACIN INJ 50,000 UNIT VIAL ONE (14:52)
[2020-05-31] MEDS ORDERED: ePHEDrine sulfate 50 MG/ML SYR ONE (14:52)
[2020-05-31] MEDS ORDERED: fentaNYL citrate 100 MCG/2 ML VIAL ONE (14:52)
[2020-05-31] MEDS ORDERED: MIDAZOLAM HCL 1 MG/ML 2ML VIAL ONE (14:52)
[2020-05-31] MEDS ORDERED: ePHEDrine sulfate 50 MG/ML AMP IV PRN (15:00)
[2020-05-31] MEDS ORDERED: ATROPINE SULFATE 0.1 MG/ML 10ML SYR IV PRN (15:00)
[2020-05-31] MEDS ORDERED: ONDANSETRON INJ 2 MG/ML 2 ML VIAL IV PRN ×2 (15:00→19:20)
--- NOTE | 2020-05-31 17:24 | Operative Report ---
Post Operative Report Pre & Post Diagnosis Operation Date: 05/31/20 13:15 Pre-Op Diagnosis: Right Knee Osteoarthritis, history of open meniscectomy Post-Op Diagnosis: Right Knee Osteoarthritis, history of open meniscectomy I identified the patient and participated in the time-out.: Yes Procedure Operation Date: 05/31/20 13:15 Actual Procedures p Right Total Knee Arthroplasty(Right) - Derek Corona MD Surgeon Derek Corona MD Single Corner Cutter PAMELA Tapia Estimated Blood Loss 5 Findings Consistent with Post-Op Diagnosis Specimens Bone cuts Drains 2 Hemovac Anesthesia Type MAC Spinal Regional Complications none Disposition Accompanied Patient To Recovery: No Disposition: Recovery Room Indications 74-year-old female with progressive osteoarthritis history of open medial meniscectomy years ago. Patient has tricompartmental osteoarthritis with varus knee [id number] medial compartment subluxation of the femur on the tibia subchondral cystic changes. Description of Procedure Patient taken to the operating room the size under spinal MAC regional anesthesia. Patient was placed supine on the operating table. A pneumatic tourniquet was placed about the right obese upper thigh. The right lower extremity was prepped and draped in sterile fashion. Knee exam demonstrated 15 degree flexion contracture flexion to 120 degrees no instability moderately large effusion.. The leg was elevated exsanguinated with an Esmarch bandage and pneumatic tourniquet was raised to 350 millimeters of mercury. Skin incised sharply in longitudinal fashion. Subcutaneous flaps elevated. Incision was made through the medial retinaculum extending up in the mid third of the quadriceps tendon and down to the medial tibial tubercle. Intra-articular findings demonstrated tricompartmental osteoarthritis [id number] medial compartment varus knee some loose bodies posteriorly grade 4 medial facet patella OA. The [employer] triathlon total knee arthroplasty system was used. To expose the knee the infrapatellar fat pad was resected. The meniscal remnants and cruciate ligaments were resected. The anterior fat pad over the femur in the area of the anterior flange of the femoral component was resected. Lateral synovial bands release. The femur was exposed. An intramedullary drill hole was made into the canal. A flexible guide maureen was placed. Distal femoral cutting guide was adjusted to resect a 5 degree valgus cut with 10 millimeters distal femur resected. The knee was extended and a subperiosteal peel lateral release was performed around the patella. Patella width was measured and width was reproduced using a freehand cut technique and a 31 x 9 symmetrical patella component. The 3 drill holes were made and the excess lateral facet was beveled off to prevent any impingement. Attention was taken back to the femur which was exposed with retractors and the femoral sizing guide was pinned in position. The drill holes were placed in 3 of external rotation to match epicondylar axis. Femur sized for a 4 component. There was some AP ML mismatch but the 4 was the best fit. The 4-in-1 cutting block was placed and then the anterior posterior and chamfer cuts are made. The tibia was then subluxed. The external tibial cutting guide was just to make a perpendicular cut to the long axis of the tibia below the most deficient bone loss side. A lamina tank wagon operator was used and the flexion extension gaps were balanced. All posterior osteophytes removed. All meniscal remnants were resected. Loose bodies were removed from the posterior compartment. The tibia exposed and the trial tibial component size 3 was externally rotated in line with the tibial tubercle and pinned in position. The punch for stem was used. The notch cutting device was centered appropriately and the femoral notch cut was made. The femoral trial was inserted. There was some tightness of the MCL requiring pie crusting the MCL to get balanced flexion extension gaps. Trial tibial inserts were placed and size 11 posterior stabilized gave balanced ligaments through flexion and extension. Patella tracking was assessed. The patella tracked centrally. The trial components were then removed and the orthomix anesthetic cocktail was injected per protocol. The knee was then copiously irrigated with pulsatile lavage antibiotic solution. Final components were then cemented with Simplex cement. Final components were for right posterior stabilized triathlon femoral component, 3 primary tibial baseplate, 11 mm posterior stabilized x-ray polyethylene tibial component, S 31 x 9 mm X3 polyethylene patella. After cement cured further pulsatile lavage irrigation performed and 2 Hemovac drains were brought out laterally. The quadriceps tendon and medial retinaculum were closed with figure of 8 #1 Vicryl sutures. The knee was taken through full range of motion and the repair was secure. The subcutaneous tissues were closed with 2-0 Vicryl sutures. Skin was closed with radhika. Sterile dressings were applied. Patient procedure well. Tremayne SANTIAGO was my physician digital marketing assistant who assisted in patient positioning prepping and draping,leg positioning ,soft tissue retraction and instrument management and participated in the closing and will participate in postoperative care of the patient. The patient tolerated the procedure well. I attest to the content of the Intraoperative Record and any orders documented therein. Any exceptions are noted below.
--- NOTE | 2020-05-31 18:01 | Anesthesiology Progress Note ---
Date of Service May 31, 2020 Anesthesia Post Procedure Vital Signs Vital Signs: Temp Pulse Resp BP Pulse Ox 05/31/20 12:31 70 20 123/68 96 05/31/20 11:59 37.1 C 88 16 139/80 95 Transfer of Care Handoff Completed per policy Notes Mental Status: alert / awake / arousable and participated in evaluation Patient Amnestic to Procedure: Yes Nausea / Vomiting: adequately controlled Pain: adequately controlled Airway Patency, RR, SpO2: stable & adequate BP & HR: stable & adequate Hydration State: stable & adequate Neuraxial Anesthesia: was administered and sensory block is resolving Anesthetic Complications: no major complications apparent and Pt Satisfied with anesthetic care
--- NOTE | 2020-05-31 18:19 | XRay Report ---
XR knee RT 1 or 2V routine CLINICAL HISTORY: Postoperative evaluation. COMPARISON: None FINDINGS: Alignment of the total right knee arthroplasty is anatomic. There is no periprosthetic fra cture or unexpected radiopaque foreign body. There are skin radhika. IMPRESSION: Expected findings following total right knee arthroplasty. ACT 112: Negative or not required by law. Electronically signed by: Bernard Villanueva M.D. 05/31/2020 6:17 PM
[2020-05-31] MEDS: fentaNYL citrate 100 MCG/2 ML VIAL IV PRN ×4 (18:35→18:52)
[2020-05-31] MEDS ORDERED: MAGNESIUM HYDROXIDE SUSP 30 ML UDC PO PRN (19:20)
[2020-05-31] MEDS ORDERED: OXYCODONE HCL IR 5 MG TAB (IMMEDIATE RELEASE) PO PRN (19:20)
[2020-05-31] MEDS ORDERED: bisacodyL 10 MG SUPP PR PRN (19:20)
[2020-05-31] MEDS ORDERED: LORazepam 0.5 MG TAB PO PRN (19:20)
[2020-05-31] MEDS ORDERED: NO NSAIDS SCH (19:20)
[2020-05-31] MEDS ORDERED: NALOXONE HCL 0.4 MG/1 ML VIAL/CARP IV PRN (19:20)
[2020-05-31] MEDS: SODIUM CHLORIDE 0.9% 1000ML 1,000 ML IV SCH (19:57)
--- NOTE | 2020-05-31 20:06 | Hospitalist Consultation ---
Date of Consultation May 31, 2020 Assessment & Plan (1) Status post right knee replacement: - POD#[address] Corona - activity and wound care orders as per ortho - pain control with bowel regimen - PT/OT - monitor H/H for acute blood loss anemia and transfuse blood products PRN - EBL 5 cc (2) HTN (hypertension): -BP controlled, continue amlodipine and losartan (3) Hypothyroidism: -Continue levothyroxine (4) DVT prophylaxis: -Aspirin 81 mg twice daily as per Ortho Thank you for this consultation. We will follow the patient with you during their hospital stay. You can reach a member of the [facility] Hospitalist Team 24/03 via pager @ [phone]. Supervising Physician Co-Signing Physician Notes I, Dr. Mango Arellano, have seen and examined the patient with nurse practitioner and agree with the assessment and plan as above and would like to comment that on physical exam General: no acute distress Lower Extremities: right knee in dressing, has ice pack over right knee, able to move the toes bilaterally Heart: regular rate Lungs: clear to anterior auscultation, no wheezing, no crackles Abdomen: soft, nontender Assessment and Plan -This is a patient with Right Knee Osteoarthritis and s/p -agree with other assessment and plans as documented by nurse practitioner and s/p Right Total Knee Arthroplasty by Dr. Corona on 05/31/2020. Patient with some right knee discomfort currently but not in acute distress. continue with prn pain medication and ice packs to right knee for now -continue blood pressure and thyroid medications -patient encouraged to participate in PT/OT evaluations tomorrow -My colleague Dr. Matta will be following the patient as hospitalist starting on 06/01/2020 History of Present Illness Reason for Consultation: Postop medical management Requesting Physician: Dr. Corona Attending Physician: Dr. Arellano History of Present Illness 74-year-old female with PMH hypothyroidism, HTN, history of DVT, and other problems listed below who is status post left total knee replacement today by Dr. Corona. Postoperatively, the patient is doing well. She reports her pain is well controlled. No chest pain or shortness of breath. Denies lightheadedness and dizziness. No abdominal pain or nausea. She has not voided since surgery. Allergies Allergy/AdvReac Type Severity Reaction Status Date / Time Iodinated Contrast Media Allergy Severe dyspnea Verified 05/31/20 11:51 azithromycin Allergy Intermediate rash Verified 05/31/20 11:51 levalbuterol Allergy Intermediate chest pain Verified 05/31/20 11:51 minocycline Allergy Intermediate rash Verified 05/31/20 11:51 cefaclor Allergy Unknown hives Verified 05/31/20 11:51 erythromycin base Allergy Unknown hives Verified 05/31/20 11:51 nitrofurantoin Allergy Unknown possible Verified 05/31/20 11:51 hives or dyspnea phenazopyridine Allergy Unknown dyspnea Verified 05/31/20 11:51 Sulfa (Sulfonamide Allergy Unknown hives Verified 05/31/20 11:51 Antibiotics) levofloxacin AdvReac Intermediate abdominal Verified 05/31/20 11:51 pain metronidazole AdvReac Intermediate GI symptoms Verified 05/31/20 11:51 morphine AdvReac Intermediate vomiting Verified 05/31/20 11:51 Home Medications Home Medications Medication Instructions Recorded Confirmed Type amlodipine 10 mg PO HS 07/08/19 05/31/20 History cyanocobalamin (vitamin B-12) 1,000 mcg PO QAM 07/08/19 05/31/20 History [Vitamin B-12] lansoprazole 30 mg PO QDL 07/08/19 05/31/20 History lorazepam 0.25 mg PO UD PRN 07/08/19 05/31/20 History losartan 100 mg PO QAM 07/08/19 05/31/20 History levothyroxine 137 mcg PO QAM 04/25/20 05/31/20 History Benadryl 0.5 tab PO HS 05/02/20 05/31/20 History acetaminophen [Tylenol Arthritis] 650 mg PO Q12H 05/02/20 05/31/20 History Patient History Medical History Cancer left breast (2015) s/p left lumpectomy/XRT, no chemo GERD (gastroesophageal reflux disease) controlled Hiatal hernia HLD (hyperlipidemia) HTN (hypertension) Hx of blood clots LLE post-op bowel resection (2016) s/p tx, no issues since Hypothyroidism Hypothyroidism Obesity Osteoarthritis Surgical History H/O foot surgery R ORIF History of appendectomy History of carpal tunnel release R/L History of colectomy D/T DIVERTICULITIS History of colonoscopy MULTIPLE History of D&C D&C, hysteroscopy: 10/24/17: LMA# 4 at [facility] History of esophagogastroduodenoscopy (EGD) History of lumpectomy of left breast 2016 History of tonsillectomy Family History Mother Breast cancer Social History Smoking Status: Former smoker Smoking End Date: QUIT AGE 24 YRS; Second Hand Exposure: Yes (FATHER SMOKED); Do You Dip or Chew Tobacco: No; Hx Alcohol Use: No Hx Substance Use: No Preferred Language: Maldivian Communication Ability: Effective Skimmer Required: No Beliefs That Will Affect Care: None Current Living Situation: Spouse Other Information That Helps Us Care for You: No Feels Safe at Home: Yes Safety Concerns: Feels Safe At This Time Assistive Devices: None Assistive Devices Comment: IMPLANTS/CAPS FRONT AND SIDES Review of Systems Review of Systems: ROS per HPI, all other systems reviewed and negative Physical Exam Constitutional: WD/WN, vitals as above Eyes: PERRL, conjunctivae normal, anicteric sclerae ENMT: external ear and nose normal, oropharynx normal Respiratory: normal respiratory effort, lungs clear to auscultation Cardiovascular: Rate/Rhythm: regular rate and regular rhythm Vessels: normal peripheral pulses Extremities: no edema Gastrointestinal (Abdomen): normal bowel sounds, soft, nontender, no hepatosplenomegaly Musculoskeletal: no cyanosis or clubbing, extremities motor strength 5/5 S/p right knee surgery, surgical dressing dry and intact, drain in place draining bloody drainage, CSM checks intact to RLE Skin: no rashes, warm and dry Neurologic: PERRL, EOMI, accommodation nl, no face palsy, no dysarthria Psychiatric: A+Ox3, euthymic affect Results & Data Results & Data ([facility]) Vital Signs (Past 12 Hours) Vital Signs Temp Pulse Pulse Resp BP Pulse Ox 05/31/20 19:45 36.7 C 85 16 123/79 93 05/31/20 19:15 36.6 C 85 18 135/79 93 05/31/20 19:05 86 16 132/66 96 05/31/20 19:00 36.4 C L 85 14 129/66 97 05/31/20 18:50 83 20 129/74 95 05/31/20 18:40 86 18 135/81 95 05/31/20 18:30 87 14 128/82 93 05/31/20 18:20 85 16 128/79 93 05/31/20 18:10 84 20 137/73 93 05/31/20 18:00 88 20 134/72 97 05/31/20 17:52 37.1 C 83 22 132/76 95 05/31/20 12:31 70 20 123/68 96 05/31/20 11:59 37.1 C 88 16 139/80 95
[2020-05-31] MEDS: HYDROmorphone INJ 0.5 MG/0.5 ML SYR IV PRN (20:36)
[2020-05-31] MEDS: AMLODIPINE BESYLATE 5 MG TAB PO SCH (20:39)
[2020-05-31] MEDS: ASPIRIN 81 MG ECTAB PO SCH (20:42)
[2020-05-31] MEDS ORDERED: Nursing to Pharmacy Communication SCH (20:45)
[2020-05-31] MEDS: diphenhydrAMINE HCl 12.5 MG/5 ML UDC PO SCH (20:59)
[2020-05-31] MEDS: ACETAMINOPHEN SOLN 1000MG/31.25ML UDC OG SCH (20:59)
[2020-05-31] MEDS ORDERED: diphenhydrAMINE HCl 12.5 MG/5 ML UDC PO SCH (21:00)
[2020-05-31] MEDS ORDERED: ACETAMINOPHEN 500 MG TAB PO SCH (22:00)
[2020-05-31] MEDS ORDERED: ACETAMINOPHEN SOLN 1000MG/31.25ML UDC OG SCH (22:00)
[2020-05-31] MEDS: ANCEF - ALLERGY NOTED TO ORDERED MEDICATION SCH ×4 (22:20→22:25)
[2020-06-01] MEDS: HYDROmorphone INJ 0.5 MG/0.5 ML SYR IV PRN ×5 (02:52→22:35)
[2020-06-01] MEDS ORDERED: VANCOMYCIN HCL 1,250 MG in SODIUM CHLORIDE 0.9% 250 ML IV ONE (03:00)
[2020-06-01] MEDS: LEVOTHYROXINE SODIUM 137 MCG TABLET PO SCH (05:36)
[2020-06-01] MEDS: ACETAMINOPHEN SOLN 1000MG/31.25ML UDC OG SCH ×3 (05:36→22:37)
[2020-06-01] MEDS: SODIUM CHLORIDE 0.9% 1000ML 1,000 ML IV SCH (05:37)
[2020-06-01 06:37] LABS: Hematocrit (blood only) 32.7 % (37-47); Hemoglobin 10.8 g/dL (12.0-16.0); Mean Corpuscular Hemoglobin 29.1 pg (25-34); Mean Corpuscular Volume 88.1 fL (80-100); Mean Platelet Volume 10.1 fL (7.4-10.4); Platelet Count 276 K/uL (130-400); RDW Coefficient of Variation 14.2 % (11.5-14.5); RDW Standard Deviation 45.9 fL (36.4-46.3); Red Blood Count 3.71 M/uL (4.2-5.4); White Blood Count 11.99 K/uL (4.8-10.8)
[2020-06-01 07:09] LABS: BUN Creatinine Ratio 25.9 (10-20); Calcium 8.3 mg/dl (8.5-10.1); Creatinine Clr Calc Pharmacy 71.7 ml/min; Est GFR (African American) 99.7; Potassium 4.1 mmol/L (3.5-5.1)
--- NOTE | 2020-06-01 08:27 | Anesthesiology Progress Note ---
Date of Service June 01, 2020 Anesthesia Post Procedure Vital Signs Vital Signs: Temp Pulse Pulse Resp BP Pulse Ox 06/01/20 07:17 36.5 C 71 18 122/65 95 06/01/20 02:54 36.4 C L 76 18 138/73 93 05/31/20 23:31 36.7 C 71 18 129/73 91 05/31/20 22:12 36.4 C L 76 16 120/67 91 05/31/20 21:18 36.6 C 85 16 135/74 92 05/31/20 20:35 84 124/75 05/31/20 20:15 36.3 C L 86 16 142/81 H 93 05/31/20 19:45 36.7 C 85 16 123/79 93 05/31/20 19:15 36.6 C 85 18 135/79 93 05/31/20 19:05 86 16 132/66 96 05/31/20 19:00 36.4 C L 85 14 129/66 97 05/31/20 18:50 83 20 129/74 95 05/31/20 18:40 86 18 135/81 95 05/31/20 18:30 87 14 128/82 93 05/31/20 18:20 85 16 128/79 93 05/31/20 18:10 84 20 137/73 93 05/31/20 18:00 88 20 134/72 97 05/31/20 17:52 37.1 C 83 22 132/76 95 05/31/20 12:31 70 20 123/68 96 05/31/20 11:59 37.1 C 88 16 139/80 95 Pain Intensity Right Knee: Pain Intensity: 8 Notes Mental Status: alert / awake / arousable and participated in evaluation Patient Amnestic to Procedure: Yes Nausea / Vomiting: adequately controlled Pain: adequately controlled Airway Patency, RR, SpO2: stable & adequate BP & HR: stable & adequate Hydration State: stable & adequate Neuraxial Anesthesia: was administered and sensory block resolved Anesthetic Complications: no major complications apparent and Pt Satisfied with anesthetic care
[2020-06-01] MEDS: MULTIVITAMIN TAB PO SCH (08:47)
[2020-06-01] MEDS: ASPIRIN 81 MG ECTAB PO SCH ×2 (08:47→20:47)
[2020-06-01] MEDS: LOSARTAN POTASSIUM 50 MG TAB PO SCH (08:48)
[2020-06-01] MEDS: CYANOCOBALAMIN 500 MCG TABLET (VITAMIN B-12) PO SCH (08:48)
[2020-06-01] MEDS ORDERED: PANTOprazole 40 MG TAB PO SCH (11:30)
--- NOTE | 2020-06-01 11:40 | Orthopedic Progress Note ---
Date of Service June 01, 2020 Assessment & Plan (1) Status post right knee replacement: Admission and Anticipated Discharge Date Admission Date: 74 yo female stable POD #1 s/p right TKA 1. Med management 2. DVT prophylaxis- ASA, SCDs 3. PT/OT 4. D/C planning- home w/ OPPT Supervising Physician Co-Signing Physician Notes Patient seen and examined. Doing very well. Pain well controlled. Mobilizing well. High drain output today, monitor overnight, D/C when output decreased. Subjective Pt resting in bed, pain controlled, denies complaints Physical Exam Physical Exam: Toes mobile, N/V/I, dressing and drain in place Results & Data ([facility]) Vital Signs (Past 12 Hours) Vital Signs Temp Pulse Resp BP Pulse Ox 06/01/20 07:17 36.5 C 71 18 122/65 95 06/01/20 02:54 36.4 C L 76 18 138/73 93 Laboratory Results 06/01/20 06/01/20 Range/Units 05:55 05:55 WBC 11.99 H (4.8-10.8) K/uL RBC 3.71 L (4.2-5.4) M/uL Hgb 10.8 L (12.0-16.0) g/dL Hct 32.7 L (37-47) % MCV 88.1 (80-100) fL MCH 29.1 (25-34) pg MCHC 33.0 (32-36) g/dL RDW Std Deviation 45.9 (36.4-46.3) fL RDW Coeff of Marcela 14.2 (11.5-14.5) % Plt Count 276 (130-400) K/uL MPV 10.1 (7.4-10.4) fL Sodium 140 (136-145) mmol/L Potassium 4.1 (3.5-5.1) mmol/L Chloride 110 H (98-107) mmol/L Carbon Dioxide 23 (21-32) mmol/L Anion Gap 7.0 (3-11) BUN 17 (7-18) mg/dl Creatinine 0.67 (0.6-1.2) mg/dl Est Cr Clr Drug Dosing 71.7 ml/min Est GFR ( Amer) 99.7 Est GFR (Non-Af Amer) 86.0 BUN/Creatinine Ratio 25.9 H (10-20) Glucose 153 H (70-99) mg/dl Calcium 8.3 L (8.5-10.1) mg/dl
--- NOTE | 2020-06-01 13:02 | Hospitalist Progress Note ---
Date of Service June 01, 2020 Assessment & Plan (1) Status post right knee replacement: POD#[address] Corona Optimize pain control per Primary surgical team Continue PT/OT while inpatient. Needs PT on discharge Hb dropped from 12.9 on 05/02/20 to 10.8. Likely related to surgery + IVF Monitor (2) HTN (hypertension): BP controlled Continue amlodipine and losartan (3) Hypothyroidism: Continue levothyroxine (4) DVT prophylaxis: Aspirin 81 mg twice daily as per Ortho Admission and Anticipated Discharge Date Admission Date: May 31, 2020 Subjective Patient seen and examined. Reports only right knee pain Denied any other complaints Reports pain was increased earlier today after physical therapy Physical Exam Constitutional: + well hydrated and + obese; no acute distress Eyes: PERRL, conjunctivae normal, anicteric sclerae ENMT: external ear and nose normal, oropharynx normal Respiratory: normal respiratory effort, lungs clear to auscultation Cardiovascular: RRR, no murmur, no edema Gastrointestinal (Abdomen): normal bowel sounds, soft, nontender, no hepatosplenomegaly Musculoskeletal: Surgical dressing over right knee with drain insitu Neurologic: PERRL, EOMI, accommodation nl, no face palsy, no dysarthria Psychiatric: A+Ox3, euthymic affect Results & Data Results & Data ([facility]) Vital Signs (Past 12 Hours) Vital Signs Temp Pulse Resp BP Pulse Ox 06/01/20 07:17 36.5 C 71 18 122/65 95 06/01/20 02:54 36.4 C L 76 18 138/73 93 Laboratory Results Laboratory Results - last 24 hr 06/01/20 06/01/20 05:55 05:55 WBC 11.99 H RBC 3.71 L Hgb 10.8 L Hct 32.7 L MCV 88.1 MCH 29.1 MCHC 33.0 RDW Std Deviation 45.9 RDW Coeff of Marcela 14.2 Plt Count 276 MPV 10.1 Sodium 140 Potassium 4.1 Chloride 110 H Carbon Dioxide 23 Anion Gap 7.0 BUN 17 Creatinine 0.67 Est Cr Clr Drug Dosing 71.7 Est GFR ( Amer) 99.7 Est GFR (Non-Af Amer) 86.0 BUN/Creatinine Ratio 25.9 H Glucose 153 H Calcium 8.3 L
[2020-06-01] MEDS: AMLODIPINE BESYLATE 5 MG TAB PO SCH (20:46)
[2020-06-01] MEDS: diphenhydrAMINE HCl 12.5 MG/5 ML UDC PO SCH (20:47)
[2020-06-02] MEDS ORDERED: KETOROLAC TROMETHAMINE 15 MG/ML VIAL IV ONE (01:31)
[2020-06-02] MEDS: HYDROmorphone HCL 2 MG TAB PO PRN ×2 (06:11→10:41)
[2020-06-02] MEDS: LEVOTHYROXINE SODIUM 137 MCG TABLET PO SCH (06:12)
[2020-06-02] MEDS: ACETAMINOPHEN SOLN 1000MG/31.25ML UDC OG SCH (06:12)
[2020-06-02 06:21] LABS: Hematocrit (blood only) 34.8 % (37-47); Hemoglobin 10.9 g/dL (12.0-16.0); Mean Corpuscular Hemoglobin 27.7 pg (25-34); Mean Corpuscular Hgb Conc 31.3 g/dL (32-36); Mean Corpuscular Volume 88.5 fL (80-100); Mean Platelet Volume 9.9 fL (7.4-10.4); Platelet Count 313 K/uL (130-400); RDW Coefficient of Variation 14.8 % (11.5-14.5); RDW Standard Deviation 47.7 fL (36.4-46.3); Red Blood Count 3.93 M/uL (4.2-5.4)
[2020-06-02 06:58] LABS: BUN Creatinine Ratio 17.9 (10-20); Calcium 8.8 mg/dl (8.5-10.1); Creatinine Clr Calc Pharmacy 60.8 ml/min; Est GFR (African American) 84.9; Est GFR (Non-African American) 73.2; Potassium 3.7 mmol/L (3.5-5.1)
--- NOTE | 2020-06-02 07:35 | Orthopedic Progress Note ---
Date of Service June 02, 2020 Assessment & Plan (1) Status post right knee replacement: POD #2, Right TKA PT/ OT DVT proph- ASA D/C plans- Home w HH today Admission and Anticipated Discharge Date Admission Date: May 31, 2020 Subjective POD #2. States Pain is a bit worse. Did well in PT. Denies SOB, CP, N/V, dizziness. Would like HH on discharge. Physical Exam Physical Exam: Right knee dressings c/d/i. No calf tenderness. Toes/ ankle mobile VSS A&Ox3. Results & Data ([facility]) Vital Signs (Past 12 Hours) Vital Signs Temp Pulse Resp BP Pulse Ox 06/02/20 06:28 36.6 C 71 22 153/71 H 95 06/01/20 23:10 36.7 C 65 18 135/72 90
[2020-06-02] MEDS: MULTIVITAMIN TAB PO SCH (08:28)
[2020-06-02] MEDS: CYANOCOBALAMIN 500 MCG TABLET (VITAMIN B-12) PO SCH (08:28)
[2020-06-02] MEDS: LOSARTAN POTASSIUM 50 MG TAB PO SCH (08:28)
[2020-06-02] MEDS: ASPIRIN 81 MG ECTAB PO SCH (08:29)
--- NOTE | 2020-06-02 10:49 | Hospitalist Progress Note ---
Date of Service June 02, 2020 Assessment & Plan (1) Status post right knee replacement: POD#[address] Corona Optimize pain control per Primary surgical team Continue PT/OT while inpatient. Needs PT on discharge Hb dropped from 12.9 on 05/02/20 to 10.8 yesterday. Likely related to surgery + IVF Hb has remained stable afterwards (2) HTN (hypertension): Continue amlodipine and losartan (3) Hypothyroidism: Continue levothyroxine (4) DVT prophylaxis: Aspirin 81 mg twice daily as per Ortho Admission and Anticipated Discharge Date Admission Date: May 31, 2020 Subjective Patient seen and examined Pain is better controlled Drain has been removed and about to be discharged Physical Exam Constitutional: + well hydrated and + obese; no acute distress Eyes: PERRL, conjunctivae normal, anicteric sclerae ENMT: external ear and nose normal, oropharynx normal Respiratory: normal respiratory effort, lungs clear to auscultation Cardiovascular: RRR, no murmur, no edema Gastrointestinal (Abdomen): normal bowel sounds, soft, nontender, no hepatosplenomegaly Musculoskeletal: Clean dressing over knee Neurologic: PERRL, EOMI, accommodation nl, no face palsy, no dysarthria Psychiatric: A+Ox3, euthymic affect Results & Data Results & Data ([facility]) Vital Signs (Past 12 Hours) Vital Signs Temp Pulse Pulse Resp BP Pulse Ox 06/02/20 10:16 36.6 C 86 71 22 153/71 H 95 06/02/20 06:28 36.6 C 71 22 153/71 H 95 06/01/20 23:10 36.7 C 65 18 135/72 90 Laboratory Results Laboratory Results - last 24 hr 06/02/20 06/02/20 06:02 06:02 WBC 11.00 H RBC 3.93 L Hgb 10.9 L Hct 34.8 L MCV 88.5 MCH 27.7 MCHC 31.3 L RDW Std Deviation 47.7 H RDW Coeff of Marcela 14.8 H Plt Count 313 MPV 9.9 Sodium 140 Potassium 3.7 Chloride 111 H Carbon Dioxide 22 Anion Gap 7.0 BUN 14 Creatinine 0.79 Est Cr Clr Drug Dosing 60.8 Est GFR ( Amer) 84.9 Est GFR (Non-Af Amer) 73.2 BUN/Creatinine Ratio 17.9 Glucose 95 Calcium 8.8
== END 2020-06-02 11:19 | disposition home health service (06) ==
LOC: ASU 11:21 → 3E 11:21
DX: Z20.828 Contact with and (suspected) exposure to other viral communicable diseases; M17.11 Unilateral primary osteoarthritis, right knee; Z88.2 Allergy status to sulfonamides; Z79.899 Other long term (current) drug therapy; Z68.35 Body mass index [BMI] 35.0-35.9, adult; E78.00 Pure hypercholesterolemia, unspecified; K44.9 Diaphragmatic hernia without obstruction or gangrene; M19.90 Unspecified osteoarthritis, unspecified site; E03.9 Hypothyroidism, unspecified; Z88.8 Allergy status to other drugs, medicaments and biological substances; Z88.5 Allergy status to narcotic agent; Z91.041 Radiographic dye allergy status; I10 Essential (primary) hypertension; K21.9 Gastro-esophageal reflux disease without esophagitis; E66.9 Obesity, unspecified; Z85.3 Personal history of malignant neoplasm of breast; Z88.1 Allergy status to other antibiotic agents

== ENCOUNTER 2021-07-22 12:24 | Inpatient (IN) ==
[2021-07-22] MEDS ORDERED: dexAMETHasone**PF** 10 MG/ML VIAL IM ONE (14:53)
[2021-07-22] MEDS ORDERED: HYDROmorphone INJ 0.5 MG/0.5 ML SYR IM STA (14:53)
[2021-07-22] MEDS ORDERED: HYDROmorphone INJ 0.5 MG/0.5 ML SYR IV STA (15:10)
[2021-07-22] MEDS ORDERED: dexAMETHasone**PF** 10 MG/ML VIAL IV ONE (15:10)
[2021-07-22] MEDS ORDERED: METOCLOPRAMIDE HCL INJ 5 MG/ML 2 ML VIAL IV PRN (18:15)
[2021-07-22] MEDS ORDERED: NALOXONE HCL 0.4 MG/1 ML VIAL/CARP IV PRN (18:15)
[2021-07-22] MEDS ORDERED: LORazepam 0.5 MG/1 ML VIAL IV PRN (18:15)
[2021-07-22] MEDS ORDERED: PROMETHAZINE HCL 12.5 MG in SODIUM CHLORIDE 0.9% 50 ML IV PRN (18:15)
[2021-07-22] MEDS ORDERED: SODIUM CHLORIDE 0.9% 1000ML 1,000 ML IV SCH (18:15)
[2021-07-22] MEDS ORDERED: LORazepam 0.5 MG TAB PO PRN (18:15)
[2021-07-22] MEDS ORDERED: HYDROmorphone INJ 1 MG/ML SYRINGE IV PRN (18:15)
[2021-07-22] MEDS ORDERED: ONDANSETRON INJ 2 MG/ML 2 ML VIAL IV PRN (18:15)
[2021-07-22] MEDS ORDERED: ACETAMINOPHEN 500 MG TAB PO PRN (18:15)
[2021-07-22] MEDS ORDERED: traMADol HCL 50 MG TABLET PO PRN (18:15)
[2021-07-22] MEDS ORDERED: hydrOXYzine HCl 25 MG TAB PO PRN (18:15)
[2021-07-22] MEDS ORDERED: ACETAMINOPHEN 1,000 MG/100 ML VIAL IV PRN (18:15)
[2021-07-22] MEDS ORDERED: ALUMINUM/MAGNESIUM SUSP 30 ML UDC PO PRN (18:15)
[2021-07-22] MEDS ORDERED: diphenhydrAMINE Capsule 25 MG CAP PO PRN (18:15)
[2021-07-22] MEDS ORDERED: oxyCODONE HCL IR 5 MG TAB (IMMEDIATE RELEASE) PO PRN (18:15)
[2021-07-22] MEDS ORDERED: ONDANSETRON 4 MG OD TAB PO PRN (18:15)
[2021-07-22] MEDS ORDERED: MAGNESIUM HYDROXIDE SUSP 30 ML UDC PO PRN (18:15)
--- NOTE | 2021-07-22 20:08 | Emergency Department Note ---
Impression & Plan Cervical radiculopathy ED Provider Note CHIEF COMPLAINT: Neck pain, extremity weakness HISTORY OF PRESENT ILLNESS: Elizabeth Quinn is a 75 year old female with history of multilevel spinal stenosis currently being followed by Dr. Quinn of Orthopedic Spine Surgery who presents to the Emergency Department for evaluation of worsening pain to her neck with associated weakness to her arms and legs, left>right, over the past several months. Currently, she is in moderate discomfort which she states becomes worse with attempts of movement. She has been taking Tylenol without relief of her symptoms. The patient also states that she has suffered multiple falls over the past few months due to the weakness in her left leg. She was recently evaluated in the Emergency Department on 07/11/21 after suffering a fall secondary to this and fortunately did not suffer additional injuries at that time. The patient was scheduled to have surgery on her neck with Dr. Quinn this past Friday, however this was cancelled due to scheduling conflicts. Since then, she has continued to have worsening pain and weakness to her extremities which she and state has made it difficult for her to care for herself at home. They are also concerned that she will sustain another fall and subsequently additional injuries secondary to her weakness, hence her visit to the ED today. The patient otherwise denies numbness/tingling, saddle paresthesias or loss of continence of her bowels or bladder. She also denies additional falls or injuries since her previous visit to the ED on 07/11/21. No recent fevers/chills, cough, chest pain, shortness of breath, abdominal pain, nausea, vomiting, diarrhea or urinary symptoms. REVIEW OF SYSTEMS: 10 systems were reviewed and were negative unless otherwise stated in HPI as above PHYSICAL EXAM: VITALS: Vitals are noted on the nurse's note and reviewed by myself. Vital signs stable. General: Resting in bed, no acute distress HEENT: Normocephalic, atraumatic, PERRL, EOMI, mucous membranes moist, oropharynx clear Neck: Tender to palpation over the midline cervical spine, no obvious step-offs or deformities, ROM limited secondary to pain Resp: Good inspiratory effort on room air, lung sounds clear bilaterally CV: Regular rate and rhythm, peripheral pulses palpated Back: Tender to palpation along the entire thoracic and lumbar spine, no obvious step-offs or deformities Abd: Soft, non-tender MSK/Neuro: Mild tenderness to palpation of the bilateral upper extremities from the shoulders down to the hands. No palpable deformities. Shoulder flexion 2/5 and extension 3/5 bilaterally. Elbow flexion and extension 3/5 bilaterally. Supervisor [employer] strength 3/5 bilaterally. Sensation intact throughout the BLE with strong radial pulses. Mild tenderness to palpation of the left leg, right leg non-tender. No palpable deformities. Left hip flexion 4/5, otherwise 5/5 throughout all other movements. FROM with strength 5/5 throughout the RLE. Sensation intact throughout with strong d/p pulses bilaterally. Differential diagnosis includes cauda equina syndrome, conus medullaris, spinal cord compression syndrome, peripheral nerve compression, fractures or subluxations, muscle strain, transverse myelitis, spinal cord injury among other etiologies were considered. EMERGENCY DEPARTMENT COURSE: Physical exam and history were performed. Nursing triage notes, EMR, and medication list were personally reviewed. Patient appears to have worsening pain to her neck with associated weakness to her arms and legs, left>right, over the past several months. She does have a history of multilevel spinal stenosis and currently follows with Dr. Quinn of orthopedic spine surgery. Of note, she was scheduled to have surgery on her neck with Dr. Quinn this past Friday, however this was canceled due to scheduling conflicts. Since then, she has continued with pain and weakness to her extremities which has made it difficult for her to care for herself at home. On exam, the patient was noted to have pain to her entire midline cervical, thoracic and lumbar spine with noted weakness especially to her upper extremities. Please see detailed exam as above. Symptoms do seem to be consistent with cervical radiculopathy, though she did not have imaging available within this EMR to review. The patient was offered medication. IV access was established and she was given Dilaudid 0.25 mg and Decadron 6 mg. I did contact Dr. Quinn and discussed the patient's case with him. He did confirm that the patient's surgery was canceled this past Friday due to scheduling conflicts. Due to her ongoing symptoms, he did suggest admitting the patient to the hospital under his service with hopes for surgical planning, possibly tomorrow. He stated that he would order any additional imaging as necessary. The patient was updated on my conversation with Dr. Quinn. She understands that he plans to admit her to the hospital under his service for ongoing management. She and her verbalized understanding and agreement with this treatment plan and seem to be happy with the outcome. The chart was completed utilizing [employer] Speech Voice Recognition Software. Grammatical errors, random word insertions, pronoun errors, and incomplete sentences are an occasional consequence of this system due to software limitations, ambient noise, and hardware issues. Any formal questions or concerns about the content, text, or information contained within the body of this dictation should be directly addressed to the provider for clarification. Past Med/Surg History Medical History Cancer left breast (2015) s/p left lumpectomy/XRT, no chemo Chronic interstitial lung disease She reports dyspnea with viral illness 08/2019 additional symptoms nasal congestion, she reports resolution after 6 weeks with nebulizer. Denies previous pulmonary history or symptoms. GERD (gastroesophageal reflux disease) controlled, stable. Patient sleeps elevated HS. Hiatal hernia HLD (hyperlipidemia) HTN (hypertension) Hx of blood clots LLE post-op bowel resection (2016) s/p tx, no issues since Hypothyroidism Obesity Osteoarthritis Surgical History H/O foot surgery R ORIF History of appendectomy History of carpal tunnel release R/L History of colectomy D/T DIVERTICULITIS History of colonoscopy MULTIPLE History of D&C D&C, hysteroscopy: 10/24/17: LMA# 4 at [facility] History of esophagogastroduodenoscopy (EGD) History of lumpectomy of left breast 2015 History of tonsillectomy Family History Mother Breast cancer Social History Smoking Status: Former smoker Tobacco Type: Cigarettes Second Hand Exposure: No; Hx Alcohol Use: No Hx Substance Use: No Preferred Language: Portuguese Communication Ability: Effective Semaphore Operator Required: No Beliefs That Will Affect Care: None marital status: Current Living Situation: Spouse Feels Safe at Home: Yes Assistive Devices: Cane, Glasses and Walker Allergies Allergies Allergy/AdvReac Type Severity Reaction Status Date / Time Iodinated Contrast Media Allergy Severe dyspnea Verified 07/18/21 13:20 azithromycin Allergy Intermediate rash Verified 07/18/21 13:20 cefaclor Allergy Intermediate hives Verified 07/18/21 16:09 erythromycin base Allergy Intermediate hives Verified 07/18/21 16:09 levalbuterol Allergy Intermediate chest pain Verified 07/18/21 13:20 minocycline Allergy Intermediate rash Verified 07/18/21 13:20 nitrofurantoin Allergy Intermediate possible Verified 07/18/21 16:09 hives or dyspnea phenazopyridine Allergy Intermediate dyspnea Verified 07/18/21 16:09 Sulfa (Sulfonamide Allergy Intermediate hives Verified 07/18/21 16:09 Antibiotics) metronidazole AdvReac Intermediate GI symptoms Verified 07/18/21 13:20 morphine AdvReac Intermediate vomiting Verified 07/18/21 13:20 levofloxacin AdvReac Mild abdominal Verified 07/18/21 16:09 pain Home Meds Home Medications Medication Instructions Recorded Confirmed amlodipine 5 mg tablet 5 mg PO HS 07/08/19 07/18/21 lansoprazole 30 mg delayed 30 mg PO QAM 07/08/19 07/18/21 release,disintegrating tablet lorazepam 0.5 mg tablet 0.25 mg PO UD PRN 07/08/19 07/18/21 losartan 50 mg tablet 100 mg PO QAM 07/08/19 07/18/21 levothyroxine 137 mcg tablet 137 mcg PO QAM 04/25/20 07/18/21 cholestyramine (with sugar) 4 gram 1 ea PO QAM 06/01/21 07/18/21 powder for susp in a packet diphenhydramine HCl 25 mg tablet 12.5 mg PO QAM 06/01/21 07/18/21 (Benadryl Allergy) Results & Data (ED) Vital Signs Vital Signs - 24 hr 07/22/21 12:30 Temperature 37.0 C Temperature Source Skin Pulse Rate 92 H Pulse Rhythm Regular Pulse Strength Normal Respiratory Rate 20 Respiratory Effort / Characteristics Non-Labored Spontaneous Respiratory Depth Normal Respiratory Pattern Regular Blood Pressure 162/76 H Blood Pressure Mean 104 Pulse Oximetry 97 Oxygen Delivery Method Room Air Sepsis Recent Fever Within 48 Hours No Sepsis New/Unexplained Change in Mental Status N/A Sepsis Action Taken by Nursing No Action Required Administered Medications Discontinued Medications Dexamethasone Sodium Phosphate (DexamethasonePf 10 Mg/Ml Vial) 6 mg IM NOW ONE Stop: 07/22/21 14:54 Last Admin: 07/22/21 16:03 Dose: Not Given Documented by: [id number] Dexamethasone Sodium Phosphate (DexamethasonePf 10 Mg/Ml Vial) 6 mg IV NOW ONE Stop: 07/22/21 15:11 Last Admin: 07/22/21 16:12 Dose: 6 mg Documented by: [id number] Hydromorphone HCl (Hydromorphone Inj 0.5 Mg/0.5 Ml Syr) 0.25 mg IM NOW STA Stop: 07/22/21 14:54 Last Admin: 07/22/21 16:03 Dose: Not Given Documented by: [id number] Hydromorphone HCl (Hydromorphone Inj 0.5 Mg/0.5 Ml Syr) 0.25 mg IV NOW STA Stop: 07/22/21 15:11 Last Admin: 07/22/21 16:12 Dose: 0.25 mg Documented by: [id number] Sodium Chloride (Nss 1000ml) 1,000 mls @ 75 mls/hr IV .[id number] [facility] Stop: 08/21/21 18:14 Last Admin: 07/22/21 18:37 Dose: 75 mls/hr Documented by: [id number] Discharge Plan Visit Data Chief Complaint: Back Injury/Pain Stated Complaint: BACK PAIN ED Provider: Aquiles Chun ED Midlevel Provider: Adrianne Raya Discharge Problem: Cervical radiculopathy Patient Disposition: Admitted As Inpatient Discharge Instructions Interventions: ED Discharge Assessment Last Done: 07/22/21 17:55
[2021-07-22] MEDS ORDERED: amLODIPine BESYLATE 5 MG TAB PO SCH (21:00)
--- NOTE | 2021-07-22 21:30 | Hospitalist Consultation ---
Date of Consultation July 22, 2021 Assessment & Plan (1) Cervical radiculopathy: Final Assessment and Recommendations as follows : Cervical radiculopathy hypertension, slightly elevated left breast cancer status post surgery/radiation history postop DVT status post anticoagulation hx ILD as per records, pulmonary status at baseline hypothyroidism, euthyroid as of today's TSH past tobacco abuse Management of cervical radiculopathy as per Orthopedics spine. Surgery contemplated tomorrow morning. Facilitate home BP meds Analgesia, no NSAIDs please DVT prophylaxis. SCDs as per Orthopedics admission orders Thank you very much for this consultation. Dr. Heart will follow patient's progress. Text document was generated using [employer] voice recognition software. It may contain grammatical or spelling errors. Kindly contact undersigned for clarification of any documentation item in question. History of Present Illness Reason for Consultation: Medical management Requesting Physician: Dr. Quinn Attending Physician: Jean Carlos Quinn, DO History of Present Illness PCP : Dr. Sweeney History obtained from patient and records. Medical history significant for hypertension, hyperlipidemia, left breast cancer status post surgery/radiation, history DVT status post anticoagulation, ILD as per records, hypothyroidism, past tobacco abuse. Last confinement May 2020 under Orthopedics service for elective right knee replacement. Patient noted to have symptoms of left arm weakness along with falling from left leg giving out the last few months. Patient evaluated by Orthopedics spine 2 months ago after abnormal outpatient imaging noted. Surgery recommended and scheduled 2 weeks ago for cervical radiculopathy. Surgery canceled due to hospital scheduling/bed issues as per patient. Recurrent falls at home over the last few weeks. ER visit about 2 weeks ago for a fall. Patient sent home. Worsening pain and weakness on the LUE/LLE. Patient having difficulty caring for patient at home because of fall r isk. Patient denies chest pain, S OB. No incontinence symptoms. Patient brought by to ER this afternoon. Currently admitted under Orthopedics spine service. 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 Allergies Allergy/AdvReac Type Severity Reaction Status Date / Time Iodinated Contrast Media Allergy Severe dyspnea Verified 11/17/21 13:20 azithromycin Allergy Intermediate rash Verified 07/18/21 13:20 cefaclor Allergy Intermediate hives Verified 07/18/21 16:09 erythromycin base Allergy Intermediate hives Verified 07/18/21 16:09 levalbuterol Allergy Intermediate chest pain Verified 07/18/21 13:20 minocycline Allergy Intermediate rash Verified 07/18/21 13:20 nitrofurantoin Allergy Intermediate possible Verified 07/18/21 16:09 hives or dyspnea phenazopyridine Allergy Intermediate dyspnea Verified 07/18/21 16:09 Sulfa (Sulfonamide Allergy Intermediate hives Verified 07/18/21 16:09 Antibiotics) metronidazole AdvReac Intermediate GI symptoms Verified 07/18/21 13:20 morphine AdvReac Intermediate vomiting Verified 07/18/21 13:20 levofloxacin AdvReac Mild abdominal Verified 07/18/21 16:09 pain Home Medications Medication Instructions Recorded Confirmed Type lansoprazole 30 mg delayed 30 mg PO QAM 07/08/19 07/22/21 History release,disintegrating tablet lorazepam 0.5 mg tablet 0.25 mg PO HS PRN 07/08/19 07/22/21 History losartan 50 mg tablet 100 mg PO QAM 07/08/19 07/22/21 History levothyroxine 137 mcg tablet 137 mcg PO QAM 04/25/20 07/22/21 History cholestyramine (with sugar) 4 gram 1 ea PO BID 06/01/21 07/22/21 History powder for susp in a packet amlodipine 10 mg tablet 10 mg PO DAILY 07/22/21 07/22/21 History amoxicillin 400 mg/5 mL oral 25 mg PO .UD 07/22/21 07/22/21 History suspension calcium carb-ergocalciferol (vit 1 tab PO DAILY 07/22/21 07/22/21 History D2) 500 mg-125 unit tablet cholecalciferol (vitamin D3) 10 10 mcg PO DAILY 07/22/21 07/22/21 History mcg (400 unit) capsule (Vitamin D3) lidocaine 5 % topical patch 1 patch TOPICAL DAILY 07/22/21 07/22/21 History Patient History Medical History Cancer left breast (2016) s/p left lumpectomy/XRT, no chemo Chronic interstitial lung disease She reports dyspnea with viral illness 08/2019 additional symptoms nasal congestion, she reports resolution after 6 weeks with nebulizer. Denies previous pulmonary history or symptoms. GERD (gastroesophageal reflux disease) controlled, stable. Patient sleeps elevated HS. Hiatal hernia HLD (hyperlipidemia) HTN (hypertension) Hx of blood clots LLE post-op bowel resection (2016) s/p tx, no issues since Hypothyroidism Obesity Osteoarthritis Surgical History H/O foot surgery R ORIF History of appendectomy History of carpal tunnel release R/L History of colectomy D/T DIVERTICULITIS History of colonoscopy MULTIPLE History of D&C D&C, hysteroscopy: 10/24/17: LMA# 4 at [facility] History of esophagogastroduodenoscopy (EGD) History of lumpectomy of left breast 2016 History of tonsillectomy Family History Mother Breast cancer Social History Smoking Status: Former smoker Tobacco Type: Cigarettes Second Hand Exposure: No; Do You Dip or Chew Tobacco: No; Hx Alcohol Use: No Hx Substance Use: No Preferred Language: Czech Communication Ability: Effective Microbiology Laboratory Manager Required: No Beliefs That Will Affect Care: None marital status: Current Living Situation: Spouse Other Information That Helps Us Care for You: No Feels Safe at Home: Yes Safety Concerns: Feels Safe At This Time Assistive Devices: Glasses Review of Systems Review of Systems: As per HPI, all 10 systems reviewed, all other ROS negative Physical Exam Physical Exam: GENERAL: Comfortable, pleasant, obese, no respiratory distress SKIN: Normal color, warm HEENT: [place] palpebral conjunctivae, no ptosis, dry buccal mucosa NECK : Some ROM limitation, short neck, minimal tenderness CHEST : CTA, no tenderness HEART : RRR, no obvious murmurs ABDOMEN: Some distention, nontender EXTREMITIES : Minimal LE swelling without tenderness (LLE > RLE), no other conspicuous deformities noted NEUROLOGIC : Coherent, no facial asymmetry, no other gross focality Results & Data Results & Data ([facility]) Vital Signs (Past 12 Hours) Vital Signs Temp Pulse Pulse Resp BP BP Pulse Ox 07/22/21 18:05 36.2 C L 73 16 176/76 H 94 07/22/21 17:30 72 20 159/105 H 95 07/22/21 16:16 72 20 135/86 95 07/22/21 12:30 37.0 C 92 H 20 162/76 H 97 Laboratory Results Laboratory Results SARS-CoV-2, RNA, NAAT NEGATIVE (NEGATIVE) 07/22/21 16:14
[2021-07-22] MEDS: HYDROmorphone INJ 0.5 MG/0.5 ML SYR IV PRN (21:33)
[2021-07-22 21:54] LABS: BUN Creatinine Ratio 32.6 (10-20); Calcium 9.5 mg/dl (8.5-10.1); Creatinine Clr Calc Pharmacy 68.9 ml/min; Est GFR (African American) 102.6 ml/min; Est GFR (Non-African American) 88.5 ml/min; Potassium 4.1 mmol/L (3.5-5.1)
[2021-07-22] MEDS: amLODIPine BESYLATE 5 MG TAB PO SCH (21:54)
[2021-07-22 22:03] LABS: Thyroid Stimulating Hormone 0.111 uIu/ml (0.300-4.500)
[2021-07-22 22:16] LABS: Magnesium 2.1 mg/dl (1.8-2.4); T4 Free Thyroxine 1.27 ng/dl (0.8-1.6)
[2021-07-23] MEDS ORDERED: LACTATED RINGER'S 1,000 ML IV SCH
[2021-07-23] MEDS ORDERED: D5W AND NSS 1,000 ML IV SCH
[2021-07-23] MEDS: HYDROmorphone INJ 0.5 MG/0.5 ML SYR IV PRN (05:51)
[2021-07-23] MEDS ORDERED: CLINDAMYCIN 600 MG/54 ML BAG IV SCH (06:00)
[2021-07-23] MEDS: LEVOTHYROXINE SODIUM 137 MCG TABLET PO SCH (06:33)
--- NOTE | 2021-07-23 08:09 | History & Physical Report ---
Date of Service July 23, 2021 Assessment & Plan (1) Cervical stenosis of spinal canal: Plan: Assessment cervical spinal stenosis with myeloradiculopathy. Plan at this time patient has considerable decline in neurologic status and requires urgent surgery. Would require an anterior cervical discectomy and fusion C4-C6 with possible C5 corpectomy. Admission and Anticipated Discharge Date Admission Date: July 22, 2021 History of Present Illness Chief Complaint: Upper extremity weakness and numbness Primary Care Provider: Devonte Sweeney DO Allergies Allergy/AdvReac Type Severity Reaction Status Date / Time Iodinated Contrast Media Allergy Severe dyspnea Verified 07/18/21 13:20 azithromycin Allergy Intermediate rash Verified 07/18/21 13:20 cefaclor Allergy Intermediate hives Verified 07/18/21 16:09 erythromycin base Allergy Intermediate hives Verified 07/18/21 16:09 levalbuterol Allergy Intermediate chest pain Verified 07/18/21 13:20 minocycline Allergy Intermediate rash Verified 07/18/21 13:20 nitrofurantoin Allergy Intermediate possible Verified 07/18/21 16:09 hives or dyspnea phenazopyridine Allergy Intermediate dyspnea Verified 07/18/21 16:09 Sulfa (Sulfonamide Allergy Intermediate hives Verified 07/18/21 16:09 Antibiotics) metronidazole AdvReac Intermediate GI symptoms Verified 07/18/21 13:20 morphine AdvReac Intermediate vomiting Verified 07/18/21 13:20 levofloxacin AdvReac Mild abdominal Verified 07/18/21 16:09 pain Home Medications Medication Instructions Recorded Confirmed Type lansoprazole 30 mg delayed 30 mg PO QAM 07/08/19 07/22/21 History release,disintegrating tablet lorazepam 0.5 mg tablet 0.25 mg PO HS PRN 07/08/19 07/22/21 History losartan 50 mg tablet 100 mg PO QAM 07/08/19 07/22/21 History levothyroxine 137 mcg tablet 137 mcg PO QAM 04/25/20 07/22/21 History cholestyramine (with sugar) 4 gram 1 ea PO BID 06/01/21 07/22/21 History powder for susp in a packet amlodipine 10 mg tablet 10 mg PO DAILY 07/22/21 07/22/21 History amoxicillin 400 mg/5 mL oral 25 mg PO .UD 07/22/21 07/22/21 History suspension calcium carb-ergocalciferol (vit 1 tab PO DAILY 07/22/21 07/22/21 History D2) 500 mg-125 unit tablet cholecalciferol (vitamin D3) 10 10 mcg PO DAILY 07/22/21 07/22/21 History mcg (400 unit) capsule (Vitamin D3) lidocaine 5 % topical patch 1 patch TOPICAL DAILY 07/22/21 07/22/21 History Past Med/Surg History Medical History Cancer left breast (2015) s/p left lumpectomy/XRT, no chemo Chronic interstitial lung disease She reports dyspnea with viral illness 08/2019 additional symptoms nasal congestion, she reports resolution after 6 weeks with nebulizer. Denies previous pulmonary history or symptoms. GERD (gastroesophageal reflux disease) controlled, stable. Patient sleeps elevated HS. Hiatal hernia HLD (hyperlipidemia) HTN (hypertension) Hx of blood clots LLE post-op bowel resection (2016) s/p tx, no issues since Hypothyroidism Obesity Osteoarthritis Surgical History H/O foot surgery R ORIF History of appendectomy History of carpal tunnel release R/L History of colectomy D/T DIVERTICULITIS History of colonoscopy MULTIPLE History of D&C D&C, hysteroscopy: 10/24/17: LMA# 4 at [facility] History of esophagogastroduodenoscopy (EGD) History of lumpectomy of left breast 2015 History of tonsillectomy Family History Mother Breast cancer Social History Smoking Status: Former smoker Tobacco Type: Cigarettes Second Hand Exposure: No; Hx Alcohol Use: No Hx Substance Use: No Preferred Language: Greek Communication Ability: Effective Corporate Accounting 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 The right is stronger to 5 or 5. Deep to reflexes absent. She demonstrates instability with ambulation cannot heel and toe walk. Results & Data ([facility]) Vital Signs (Past 12 Hours) Vital Signs Temp Pulse Resp BP Pulse Ox 07/23/21 07:50 36.4 C L 68 16 146/74 H 92 07/22/21 23:09 36.7 C 61 16 139/69 93 07/22/21 21:47 36.7 C 73 118/67 94 Code Status & VTE Plan VTE Prophylaxis Plan VTE Prophylaxis will be ordered: Yes
[2021-07-23] MEDS ORDERED: fentaNYL citrate 100 MCG/2 ML VIAL ONE (08:34)
[2021-07-23] MEDS ORDERED: MIDAZOLAM HCL 1 MG/ML 2ML VIAL ONE (08:34)
--- NOTE | 2021-07-23 08:48 | Hospitalist Progress Note ---
Date of Service July 23, 2021 Assessment & Plan (1) Cervical stenosis of spinal canal: Plan: - Planned surgery for today with Dr. Quinn, pt had previously been cleared for surgical procedure however presented to the ER with worsening pain to her neck with associated weakness to her arms and legs, left greater than right. She has suffered multiple falls over the past few months due to the weakness in her left leg. She was scheduled to have surgery on her neck with Dr. Quinn this past Friday however could not do it because of scheduling conflicts. She presented to the ER last night and has been scheduled for surgery this morning. - Pain management, bowel regimen and DVT ppx per the primary team - PT/OT consults - Follow CBC to monitor for acute blood loss (2) HTN (hypertension): Plan: - Continue on losartan 100 mg every morning (3) HLD (hyperlipidemia): Plan: -Continue cholestyramine (4) GERD (gastroesophageal reflux disease): Plan: -Continue lansoprazole, also with hx of hiatal hernia (5) Hypothyroidism: Plan: -Continue levothyroxine 137 mcg daily - will need PCP to follow as outpatient, repeat labs in 6 weeks, consider adjustment while inpatient -Last TSH was low at 0.111 (6) Obesity: Plan: - BMI of 32.1, diet and exercise to be encouraged. (7) Chronic interstitial lung disease: Plan: - Chronic hx of such, stable, on room air. Monitor after surgery with sedation and ventilation during procedure (8) Contact dermatitis: Plan: - Order triamcinolone cream for topical use and may use vistaril for itching. Likely due to detergent used in hospital sheet/gown fabrics. - Currently getting clindamycin IV, no listed allergy for such antibiotic and none that the patient is aware of. On further review- pt has gotten this antibiotic 300 mg BID x 3 days last Oct and did not have any allergic reaction. There are multiple allergies listed on her chart to antibiotics that cause rash. Will monitor. DVT ppx: - teds, scds CODE: Full Dispo: From home, likely to remain in the hospital x 1-2 days Thank you for involving us in the care of Ms. Quinn. Please do not hesitate to call with questions or concerns. At this time medicine service will follow along. Admission and Anticipated Discharge Date Admission Date: July 22, 2021 Subjective The patient was seen and examined this morning. Pt states doing well. She is broken out in a faint red rash over her chest and back, which she reports has happened before when she was in the hospital. Pt notes sensitivity to detergents, and only uses baby detergent at home. She does not have rash over her legs arms or stomach, and is wearing leggings and socks in bed. Reports that it is itchy, nonpainful. She has not eaten today in anticipation of surgical procedure. Last BM was yesterday. She is urinating without difficulty. Denies any other acute complaints. Review of Systems Review of Systems: Constitutional: No fever, sweats or chills Eyes: No diplopia, no worsening or blurred vision ENT: normal hearing, no trouble swallowing Respiratory: No cough, sputum, dyspnea at rest or on exertion Cardiovascular: No chest pain, tightness or palpitations Abdomen: No pain, nausea, vomiting, diarrhea or constipation Musculoskeletal: No joint pain, calf pain, swelling Neurologic: No weakness, numbness/tingling, or balance problems Psychiatric: No anxiety or depression Skin: + rash and itch as per HPI. Physical Exam Physical Exam: General: awake, alert, no apparent distress, obese with BMI of 32.1 Head: Normocephalic, atraumatic ENT: PERRL, EOMI, no pharyngeal exudate, mucous membranes moist Chest: Clear to auscultation, on room air, no adventitious breath sounds Cardiac: Regular rate and rhythm, no murmur, no JVD, normal peripheral pulses, good capillary refill Abdominal: NABS x 4 quadrants, soft, nondistended, nontender to palpation, no rebound or guarding Extremities: Normal inspection, no peripheral edema or erythema, calfs nontender to palpation Psych: Normal mood and affect Skin: diffuse faintly red rash over the anterior chest and back, pruritic, no hives or raised lesions, does not involve the legs/feet/arms or hands. Neuro: AAO x 3, strength intact bilaterally and rated 4/5 in legs, no motor deficits, speech is clear, no peripheral sensory deficits. Using a walker at baseline. Results & Data Results & Data ([facility]) Vital Signs (Past 12 Hours) Vital Signs Temp Pulse Resp BP Pulse Ox 07/23/21 07:50 36.4 C L 68 16 146/74 H 92 07/22/21 23:09 36.7 C 61 16 139/69 93 07/22/21 21:47 36.7 C 73 118/67 94
--- NOTE | 2021-07-23 08:54 | Anesthesiology Consultation ---
Date of Service July 23, 2021 Assessment & Plan (1) Encounter for pre-operative examination: Chart Review Chart Review: Acceptable Risk for Surgery History Surgery Operation Date: 07/23/21 14:15 Proposed Procedures p C4-C6 Anterior Cervical Discectomy Fusion; Possible C5 Corpectomy - Jean Carlos Quinn DO Height/Weight Height: 4 ft 11 in Weight: 72 kg Allergies Allergy/AdvReac Type Severity Reaction Status Date / Time Iodinated Contrast Media Allergy Severe dyspnea Verified 07/18/21 13:20 azithromycin Allergy Intermediate rash Verified 07/18/21 13:20 cefaclor Allergy Intermediate hives Verified 07/18/21 16:09 erythromycin base Allergy Intermediate hives Verified 07/18/21 16:09 levalbuterol Allergy Intermediate chest pain Verified 07/18/21 13:20 minocycline Allergy Intermediate rash Verified 07/18/21 13:20 nitrofurantoin Allergy Intermediate possible Verified 07/18/21 16:09 hives or dyspnea phenazopyridine Allergy Intermediate dyspnea Verified 07/18/21 16:09 Sulfa (Sulfonamide Allergy Intermediate hives Verified 07/18/21 16:09 Antibiotics) metronidazole AdvReac Intermediate GI symptoms Verified 07/18/21 13:20 morphine AdvReac Intermediate vomiting Verified 07/18/21 13:20 levofloxacin AdvReac Mild abdominal Verified 07/18/21 16:09 pain Medications Home Medications Medication Instructions Recorded Confirmed Last Taken lansoprazole 30 mg delayed 30 mg PO QAM 07/08/19 07/22/21 05/31/20 07:30 release,disintegrating tablet lorazepam 0.5 mg tablet 0.25 mg PO HS PRN 07/08/19 07/22/21 05/31/20 09:00 losartan 50 mg tablet 100 mg PO QAM 07/08/19 07/22/21 05/30/20 08:00 levothyroxine 137 mcg tablet 137 mcg PO QAM 04/25/20 07/22/21 05/31/20 07:30 cholestyramine (with sugar) 4 gram 1 ea PO BID 06/01/21 07/22/21 Unknown powder for susp in a packet amlodipine 10 mg tablet 10 mg PO DAILY 07/22/21 07/22/21 Unknown amoxicillin 400 mg/5 mL oral 25 mg PO .UD 07/22/21 07/22/21 Unknown suspension calcium carb-ergocalciferol (vit 1 tab PO DAILY 07/22/21 07/22/21 Unknown D2) 500 mg-125 unit tablet cholecalciferol (vitamin D3) 10 10 mcg PO DAILY 07/22/21 07/22/21 Unknown mcg (400 unit) capsule (Vitamin D3) lidocaine 5 % topical patch 1 patch TOPICAL DAILY 07/22/21 07/22/21 Unknown Active Medications Generic Name Dose Route Start Last Admin Trade Name Freq PRN Reason Stop Dose Admin Amlodipine Besylate 10 mg 07/22/21 21:15 07/22/21 21:54 Amlodipine Besylate 5 Mg Tab PO 08/21/21 21:14 10 mg HS DAIJA Administration Hydromorphone HCl 0.5 mg 07/22/21 18:15 07/23/21 05:51 Hydromorphone Inj 0.5 Mg/0.5 Ml Syr IV 08/05/21 18:14 0.5 mg Q3H PRN Administration MOD pain (scale 4-6) & Pre PT Dextrose/Sodium Chloride 1,000 mls @ 60 mls/hr 07/23/21 00:00 07/23/21 00:08 D5w And Nss IV 08/22/21 00:00 60 mls/hr .[id number] DAIJA Administration Levothyroxine Sodium 137 mcg 07/23/21 06:30 07/23/21 06:33 Levothyroxine Sodium 137 Mcg Tablet PO 08/22/21 06:29 137 mcg DAILYBB DAIJA Administration Past Medical History Medical History Cancer left breast (2015) s/p left lumpectomy/XRT, no chemo Chronic interstitial lung disease She reports dyspnea with viral illness 08/2019 additional symptoms nasal congestion, she reports resolution after 6 weeks with nebulizer. Denies previous pulmonary history or symptoms. GERD (gastroesophageal reflux disease) controlled, stable. Patient sleeps elevated HS. Hiatal hernia HLD (hyperlipidemia) HTN (hypertension) Hx of blood clots LLE post-op bowel resection (2016) s/p tx, no issues since Hypothyroidism Obesity Osteoarthritis Past Family History Family History Mother Breast cancer Past Surgical History Surgical History H/O foot surgery R ORIF History of appendectomy History of carpal tunnel release R/L History of colectomy D/T DIVERTICULITIS History of colonoscopy MULTIPLE History of D&C D&C, hysteroscopy: 10/24/17: LMA# 4 at [facility] History of esophagogastroduodenoscopy (EGD) History of lumpectomy of left breast 2016 History of tonsillectomy Social History Smoking Status: Former smoker tobacco type: cigarettes Do You Dip or Chew Tobacco: No Hx Alcohol Use: No Hx Substance Use: No Physical Exam Vital Signs Last Vital Signs Temp 36.4 C L 07/23/21 07:50 Pulse 68 07/23/21 07:50 Resp 16 07/23/21 07:50 BP 146/74 H 07/23/21 07:50 Pulse Ox 92 07/23/21 07:50 Testing Laboratory Results 07/22/21 15:33 Electrocardiogram Date: 06/04/21 Findings: + SB @ (55) and + RBBB (incomplete) Chest X-Ray Date: 06/04/21 Findings: + NAD Stress Test Date: 08/03/19 Type: DSE Resting EF: 55-59% Resting LV Function: normal (mild diastolic dysfunction) Valvular Disease: no significant valvular disease
[2021-07-23] MEDS ORDERED: TRIAMCINOLONE ACET 0.1% CR 80 GM TUBE EXT PRN (09:06)
[2021-07-23] MEDS ORDERED: hydrOXYzine HCl 25 MG TAB PO STA (09:14)
--- NOTE | 2021-07-23 09:56 | History & Physical Bridge Note ---
Date of Service July 23, 2021 History & Physical Bridge Note I have examined the patient, reviewed the History & Physical and in the interval since the performance of the History & Physical I have noted the following changes of clinical significance: no changes noted C4-C6 anterior cervical discectomy and fusion, possible C5 corpectomy
[2021-07-23] MEDS ORDERED: PROMETHAZINE HCL 6.25 MG in SODIUM CHLORIDE 0.9% 50 ML IV PRN (09:59)
[2021-07-23] MEDS ORDERED: HYDROmorphone INJ 2 MG/ML SYR/VIAL IV PRN (09:59)
[2021-07-23] MEDS ORDERED: ONDANSETRON INJ 2 MG/ML 2 ML VIAL IV PRN ×2 (09:59→13:43)
[2021-07-23] MEDS ORDERED: ePHEDrine sulfate 50 MG/ML AMP IV PRN (09:59)
[2021-07-23] MEDS ORDERED: ATROPINE SULFATE 0.1 MG/ML 10ML SYR IV PRN (09:59)
[2021-07-23] MEDS ORDERED: SUCCINYLCHOLINE CHLORIDE 20 MG/ML 10 ML VIAL IV ONE (11:14)
[2021-07-23] MEDS ORDERED: ROCURONIUM BROMIDE 10 MG/ML 5 ML VIAL IV ONE (11:14)
[2021-07-23] MEDS ORDERED: DEXAMETHASONE SOD INJ 4 MG/ML VIAL ONE (11:14)
[2021-07-23] MEDS ORDERED: ONDANSETRON INJ 2 MG/ML 2 ML VIAL ONE (11:14)
[2021-07-23] MEDS ORDERED: LIDOCAINE 2% 2 ML VIAL/AMP(20MG/ML) INFIL ONE (11:14)
[2021-07-23] MEDS ORDERED: PROPOFOL IV EMULSION 10 MG/ML 20 ML VIAL IV ONE (11:14)
[2021-07-23] MEDS ORDERED: NEOSTIGMINE METHYLSULFATE 1 MG/ML 10ML VIAL ONE (11:15)
[2021-07-23] MEDS ORDERED: GLYCOPYRROLATE 0.2 MG/ML VIAL ONE (11:15)
[2021-07-23] MEDS ORDERED: FLOSEAL HEMOSTATIC MATRIX 10ML TOP ONE (11:18)
--- NOTE | 2021-07-23 12:03 | Operative Report ---
Post Operative Report Pre & Post Diagnosis Operation Date: 07/23/21 14:15 Pre-Op Diagnosis: Cervical spinal stenosis with radiculopathy Post-Op Diagnosis: Same I identified the patient and participated in the time-out.: Yes Procedure Operation Date: 07/23/21 14:15 Actual Procedures #1 anterior cervical discectomy with bilateral foraminotomies C4-5 and C5-C6. #2 anterior cervical arthrodesis C4-5 C5-6. #3 placement of Spira 6 mm cage at C4-5 and 7 mm cage at C5-C6 both filled with I factor. #4 application of christensen plate and screws across 345 C5-6. Surgeon Jean Carlos Quinn, [employer] Diamond Knox Estimated Blood Loss 25 Findings Consistent with Post-Op Diagnosis Specimens None Indications This is a 75-year-old female who presents with marked decline in neurologic status particular involving left lower extremity and is here for surgical intervention. Description of Procedure Patient was met with identified informed consent obtained. Patient was then taken to the operative suite underwent intubation placed in a supine position the Charlie table the Senath head of cytogenetics. All bony prominences well-padded eyes inspected to ensure no external pressure placed upon the. This point the anterior cervical spine was prepped and draped in a sterile fashion. With the assistance of fluoroscopy identified the C5 vertebral body and a transverse incision was placed along the right anterior aspect of the cervical spine overlying this region. Blunt dissection with the assistance of bipolar electrocautery performed down to and exposing anterior cervical spine from C4- C6. Self-retaining retractors placed. Then performed a complete discectomy of C4-C5 out to the uncovertebral joints bilaterally. Ransom distracting pins were utilized to assist in visualization. Removed all posterior annular fibers longitudinal ligament bilateral foraminotomies performed. The endplates were then burred to subcortical bleeding bone and a 6 mm spiral cage filled with I factor tapped in position. Then proceeded to C5-C6 and again complete discectomy performed out to the uncovertebral's bilaterally. Ransom distracting pins again utilized. I removed all posterior annular fibers and longitudinal ligament bilateral foraminotomies again performed. Endplates were then burred to subcortical bleeding bone and a 7 mm spiral cage filled with I factor tapped in position. Distracting apparatus was removed all anterior osteophytes burred to a smooth cortical surface and a 5 complete screws applied with the assistance of fluoroscopy. Incision was then copiously irrigated explored to ensure no damage to surrounding structures remaining bleeding. 10 round TIM drain inserted . The incision was then closed with 2 Vicryl in a fashion of 4 Monocryl for final skin closure. Steri-Strip sterile dressings placed. Patient will continue to PACU stable condition. Please note spinal cord monitoring was utilized at the procedure and no changes noted. Lastly Diamond Knox was present at the entire surgery and while the patient resisting complex portions of the surgery and vascular closure. I attest to the content of the Intraoperative Record and any orders documented therein. Any exceptions are noted below.
[2021-07-23] MEDS: fentaNYL citrate 100 MCG/2 ML VIAL IV PRN ×2 (12:38→12:43)
--- NOTE | 2021-07-23 12:55 | Anesthesiology Progress Note ---
Date of Service July 23, 2021 Anesthesia Post Procedure Vital Signs Vital Signs: Temp Pulse Pulse Resp BP BP Pulse Ox 07/23/21 12:35 88 18 152/69 H 97 07/23/21 12:25 97 H 18 159/80 H 99 07/23/21 12:19 36.4 C L 96 H 18 174/79 H 99 07/23/21 09:37 36.7 C 90 16 170/83 H 95 07/23/21 07:50 36.4 C L 68 16 146/74 H 92 07/22/21 23:09 36.7 C 61 16 139/69 93 07/22/21 21:47 36.7 C 73 118/67 94 07/22/21 18:05 36.2 C L 73 16 176/76 H 94 07/22/21 17:30 72 20 159/105 H 95 07/22/21 16:16 72 20 135/86 95 Pain Intensity Upper Back: Pain Intensity: 6 Neck: Pain Intensity: 5 Transfer of Care Handoff Completed per policy Notes Mental Status: alert / awake / arousable and participated in evaluation Patient Amnestic to Procedure: Yes Nausea / Vomiting: adequately controlled Pain: adequately controlled Airway Patency, RR, SpO2: stable & adequate BP & HR: stable & adequate Hydration State: stable & adequate Anesthetic Complications: no major complications apparent and Pt Satisfied with anesthetic care
--- NOTE | 2021-07-23 13:22 | Fluoroscopy Report ---
FL cervical 2-3V CLINICAL HISTORY: ACDF C4-C6 COMPARISON STUDY: None. FLUOROSCOPY TIME: 10.5 seconds. FLUOROSCOPIC IMAGES: 2 FINDINGS: Exact localization is not possible on this exam given obscuration of C2. These images demon strate a multilevel anterior discectomy and fusion, likely extending from C4 through C6. Hardware is intact. Endotracheal tube is partially imaged. Linear radiodensity shown on initial image is not pres ent on the subsequent image. IMPRESSION: Fluoroscopy provided during anterior cervical spine discectomy and fusion, as described above. ACT 112: Negative or not required by law. Electronically signed by: Bernard Villanueva M.D. 07/23/2021 1:21 PM
[2021-07-23] MEDS ORDERED: SOD PHOSPHATE/SOD BIPHOSPHATE ENEMA 132 ML BTL PR PRN (13:43)
[2021-07-23] MEDS ORDERED: diphenhydrAMINE Capsule 25 MG CAP PO PRN (13:43)
[2021-07-23] MEDS ORDERED: ACETAMINOPHEN 1,000 MG/100 ML VIAL IV PRN (13:43)
[2021-07-23] MEDS ORDERED: LORazepam 0.5 MG TAB PO PRN ×2 (13:43)
[2021-07-23] MEDS ORDERED: FAMOTIDINE 20 MG TAB PO PRN (13:43)
[2021-07-23] MEDS ORDERED: bisacodyL 10 MG SUPP PR PRN (13:43)
[2021-07-23] MEDS ORDERED: hydrOXYzine HCl 25 MG TAB PO PRN (13:43)
[2021-07-23] MEDS ORDERED: NALOXONE HCL 0.4 MG/1 ML VIAL/CARP IV PRN (13:43)
[2021-07-23] MEDS ORDERED: DO NOT ADMINISTER PNEUMOCOCCAL VACCINE PRN (13:43)
[2021-07-23] MEDS ORDERED: METOCLOPRAMIDE HCL INJ 5 MG/ML 2 ML VIAL IV PRN (13:43)
[2021-07-23] MEDS ORDERED: MAGNESIUM HYDROXIDE SUSP 30 ML UDC PO PRN (13:43)
[2021-07-23] MEDS ORDERED: dexAMETHasone 8 MG in SYRINGE 0 ML IV PRN (13:43)
[2021-07-23] MEDS ORDERED: traMADol HCL 50 MG TABLET PO PRN (13:43)
[2021-07-23] MEDS ORDERED: PROMETHAZINE HCL 12.5 MG in SODIUM CHLORIDE 0.9% 50 ML IV PRN (13:43)
[2021-07-23] MEDS ORDERED: oxyCODONE HCL IR 5 MG TAB (IMMEDIATE RELEASE) PO PRN (13:43)
[2021-07-23] MEDS ORDERED: ONDANSETRON 4 MG OD TAB PO PRN (13:43)
[2021-07-23] MEDS ORDERED: LORazepam 0.5 MG/1 ML VIAL IV PRN (13:43)
[2021-07-23] MEDS ORDERED: ALUMINUM/MAGNESIUM SUSP 30 ML UDC PO PRN (13:43)
[2021-07-23] MEDS ORDERED: DO NOT ADMINISTER FLU VACCINE PRN (13:43)
[2021-07-23] MEDS ORDERED: ACETAMINOPHEN 500 MG TAB PO PRN (13:43)
[2021-07-23] MEDS ORDERED: RACEPINEPHRINE 2.25% NEBU SOLN 0.5 ML VIAL INH PRN (13:43)
[2021-07-23] MEDS: SODIUM CHLORIDE 0.9% 1000ML 1,000 ML IV SCH (14:58)
[2021-07-23] MEDS: dexAMETHasone 6 MG in SYRINGE 0 ML IV SCH ×2 (15:59→23:36)
[2021-07-23] MEDS: diphenhydrAMINE 50 MG/ML VIAL IV PRN (16:16)
[2021-07-23] MEDS ORDERED: SODIUM CHLORIDE 0.65% NA SOLN 45 ML (OCEAN) PRN (16:56)
[2021-07-23] MEDS ORDERED: SODIUM CHLORIDE 0.65% NA SOLN 45 ML (OCEAN) ONE (17:00)
[2021-07-23] MEDS: LANSOPRAZOLE 30 MG SOLTAB PO SCH (17:17)
[2021-07-23] MEDS: LOSARTAN POTASSIUM 50 MG TAB PO SCH (17:17)
[2021-07-23] MEDS: CLINDAMYCIN 600 MG in DEXTROSE 5% 50 ML IV SCH (19:18)
[2021-07-23] MEDS ORDERED: FAMOTIDINE 20 MG in SYRINGE 3 ML IV STA (19:50)
[2021-07-23] MEDS: amLODIPine BESYLATE 5 MG TAB PO SCH (20:19)
[2021-07-23] MEDS ORDERED: DOCUSATE SODIUM/SENNA 50/8.6MG TAB PO SCH (21:00)
[2021-07-24] MEDS: CLINDAMYCIN 600 MG in DEXTROSE 5% 50 ML IV SCH (01:46)
[2021-07-24] MEDS: SODIUM CHLORIDE 0.9% 1000ML 1,000 ML IV SCH (05:22)
[2021-07-24] MEDS: LEVOTHYROXINE SODIUM 137 MCG TABLET PO SCH (05:37)
[2021-07-24] MEDS: POLYETHYLENE (MIRALAX) 17 GM PACK PO SCH ×2 (05:37→13:34)
[2021-07-24] MEDS ORDERED: CALCIUM 600MG + VIT D 400 IU TAB PO SCH (09:00)
[2021-07-24] MEDS ORDERED: amLODIPine BESYLATE 5 MG TAB PO SCH (09:00)
[2021-07-24] MEDS ORDERED: CHOLECALCIFEROL 400 UNITS 10 MCG TAB PO SCH (09:00)
[2021-07-24] MEDS: dexAMETHasone 6 MG in SYRINGE 0 ML IV SCH (09:40)
[2021-07-24] MEDS: LANSOPRAZOLE 30 MG SOLTAB PO SCH (09:41)
[2021-07-24] MEDS: LOSARTAN POTASSIUM 50 MG TAB PO SCH (09:42)
[2021-07-24] MEDS ORDERED: guaiFENesin SUGAR FREE 100 MG/5 ML UDC PO SCH (12:00)
--- NOTE | 2021-07-24 12:00 | Hospitalist Progress Note ---
Date of Service July 24, 2021 Assessment & Plan (1) Cervical stenosis of spinal canal: (2) Cervical radiculopathy: (3) HTN (hypertension): (4) HLD (hyperlipidemia): (5) Hypothyroidism: Plan: Cervical stenosis of spinal canal Cervical radiculopathy POD #1 ACDF C4-5 and C5-6, by Dr. Quinn Tolerated the procedure well EBL 25 mL; TIM drain 10 mL Continue cervical spine precautions, c-collar in place Pain/wound management per orthopedics Activity and therapy as prescribed by Ortho Monitor hemoglobin Post Nasal drip at home pt takes benadryl 12.5mg bid and muccinex QID will add benadryl will need to be IV due to pharmacy only have benadryl capsules HTN Continue losartan and amlodipine, BP controlled Hyperlipidemia Continue cholestyramine GERD Continue lansoprazole, also with hx of hiatal hernia Hypothyroidism Continue levothyroxine 137 mcg daily - will need PCP to follow as outpatient, repeat labs in 6 weeks, consider adjustment while inpatient Last TSH was low at 0.111, but T4 WNL recommend repeat as outpt in 2 weeks Obesity BMI of 32.1, diet and exercise to be encouraged. Chronic interstitial lung disease: Chronic hx of such, stable, on room air. Monitor after surgery with sedation and ventilation during procedure Contact dermatitis: Order triamcinolone cream for topical use and may use vistaril for itching. Likely due to detergent used in hospital sheet/gown fabrics. Currently getting clindamycin IV, no listed allergy for such antibiotic and none that the patient is aware of. On further review- pt has gotten this antibiotic 300 mg BID x 3 days last Oct and did not have any allergic reaction. There are multiple allergies listed on her chart to antibiotics that cause rash. Improving DVT ppx: teds, scds CODE: Full Dispo: From home, likely to remain in the hospital x 1-2 days Thank you for this consultation. We will follow the patient with you during their hospital stay. You can reach a member of the [facility] Hospitalist Team 24/03 via hospitalist role on tiger text. Patient was seen and examined in collaboration with, Dr. Heart, please see addendum Admission and Anticipated Discharge Date Admission Date: July 22, 2021 Supervising Physician Co-Signing Physician Notes Patient was seen and examined. Agree with Sherly RANDOLPH exam assessment and plan. Status post day#1 ACDF C4-5 and C5-[address] Quinn. No postop complication. Continue incentive spirometry. Monitor H&H. Pain management. Continue PT/OT eval. Fall precaution. MD Una Subjective Patient was seen and examined in room 385-2 Follow-up cervical surgery by Dr. Quinn She complains of increased phlegm. She states she has had this for the past several months. At home she takes Benadryl and Mucinex and is requesting this. She denies any dysphagia. She denies fever, chills, sweats, chest pain, shortness of breath, vomiting, abdominal pain. She is tolerating liquids. She is urinating without difficulty. She has not passed a BM. Review of Systems Review of Systems: All systems reviewed & are unremarkable except as noted in HPI & below Physical Exam 2 Physical Exam: Gen: WD/WN, NAD, A&O x3 HEENT: Cervical collar in place, clearing throat frequently, normocephalic, atraumatic, conjunctivae moist, sclerae anicteric, mucous membranes moist. Lung: Clear to Auscultation bilaterally, no wheezes/rales/rhonchi, no stridor Heart: Regular rate, regular rhythm, no murmurs, rubs, or gallops Abdomen: Soft, NT, ND +BS x 4 Extremities: No edema Skin: Warm, no rash, negative turgor. Results & Data Results & Data ([facility]) Vital Signs (Past 12 Hours) Vital Signs Temp Pulse Pulse Resp BP Pulse Ox 07/24/21 11:30 36.5 C 78 136/67 95 07/24/21 10:57 77 20 95 07/24/21 09:30 36.5 C 87 152/77 H 95 07/24/21 07:18 80 19 95 07/24/21 05:30 36.5 C 93 H 16 166/79 H 96 07/24/21 03:30 36.6 C 79 16 128/55 L 95 07/24/21 03:26 79 20 97 07/24/21 00:23 78 18 97 07/24/21 00:13 36.8 C 77 16 144/77 H 99 Medications Administered Current Inpatient Medications Acetaminophen (Acetaminophen 500 Mg Tab) 1,000 mg PO Q8H PRN PRN Reason: MILD Pain Scale 1,2,3 & Pre PT Stop: 08/22/21 13:42 Al Hydrox/Mg Hydrox/Simethicone (Aluminum/Magnesium Susp 30 Ml Udc) 30 ml PO Q6H PRN PRN Reason: Dyspepsia Stop: 08/22/21 13:42 Last Admin: 07/23/21 18:07 Dose: 30 ml Documented by: Amlodipine Besylate (Amlodipine Besylate 5 Mg Tab) 10 mg PO HS DAJIA Stop: 08/21/21 21:14 Last Admin: 07/23/21 20:19 Dose: 10 mg Documented by: Bisacodyl (Bisacodyl 10 Mg Supp) 10 mg [place] DAILY PRN PRN Reason: Constipation Stop: 08/22/21 13:42 Diphenhydramine HCl (Diphenhydramine Capsule 25 Mg Cap) 25 mg PO Q6H PRN PRN Reason: Allergic Rhinitis/Insomnia Stop: 08/22/21 13:42 Diphenhydramine HCl (Diphenhydramine 50 Mg/Ml Vial) 12.5 mg IV Q6 PRN PRN Reason: Nausea Stop: 08/22/21 15:25 Last Admin: 07/23/21 16:16 Dose: 12.5 mg Documented by: Diphenhydramine HCl (Diphenhydramine Capsule 25 Mg Cap) 12.5 mg PO AMHS DAIJA Stop: 08/23/21 20:59 Epinephrine (Racepinephrine 2.25% Nebu Soln 0.5 Ml Vial) 0.5 ml INH NOW PRN PRN Reason: If stridor present Famotidine (Famotidine 20 Mg Tab) 20 mg PO Q12H PRN PRN Reason: Dyspepsia Stop: 08/22/21 13:42 Guaifenesin (Guaifenesin Sugar Free 100 Mg/5 Ml Udc) 100 mg PO BID DAIJA Stop: 08/23/21 11:59 Hydroxyzine HCl (Hydroxyzine Hcl 25 Mg Tab) 25 mg PO Q8H PRN PRN Reason: Anxiety Stop: 08/22/21 13:42 Dexamethasone 8 mg/ Syringe 2 mls @ 1 mls/min IV NOW PRN PRN Reason: If stridor present Sodium Chloride (Nss 1000ml) 1,000 mls @ 75 mls/hr IV .[id number] [facility] Stop: 08/22/21 13:42 Last Admin: 07/24/21 05:22 Dose: 75 mls/hr Documented by: Promethazine HCl 12.5 mg/ (Sodium Chloride) 50.5 mls @ 202 mls/hr IV Q6H PRN PRN Reason: Nausea &/or Vomiting Stop: 08/22/21 13:42 Acetaminophen (Ofirmev) 1,000 mg in 100 mls @ 400 mls/hr IV Q8H PRN PRN Reason: Pain Rating 1-3 & Pre PT Stop: 07/26/21 13:42 Lorazepam (Ativan) 0.5 mg in 1 mls @ 1 mls/min IV Q8H PRN PRN Reason: Sedation/Anxiety Stop: 08/22/21 13:42 Influenza Virus Vaccine Quadrival (Do Not Administer Flu Vaccine) 1 ea N/A PRN PRN PRN Reason: Notification Stop: 08/22/21 13:42 Lansoprazole (Lansoprazole 30 Mg Soltab) [facility] [place] Stop: 08/22/21 08:59 Last Admin: 07/24/21 09:41 Dose: 30 mg Documented by: Levothyroxine Sodium (Levothyroxine Sodium 137 Mcg Tablet) 137 mcg PO DAILYBB [facility] Stop: 08/22/21 06:29 Last Admin: 07/24/21 05:37 Dose: 137 mcg Documented by: Lorazepam (Lorazepam 0.5 Mg Tab) 0.25 mg PO HS PRN PRN Reason: Anxiety Stop: 08/22/21 13:42 Lorazepam (Lorazepam 0.5 Mg Tab) 0.5 mg PO Q8H PRN PRN Reason: Sedation/Anxiety Stop: 08/22/21 13:42 Losartan Potassium (Losartan Potassium 50 Mg Tab) 100 mg PO QAM [facility] Stop: 08/22/21 08:59 Last Admin: 07/24/21 09:42 Dose: 100 mg Documented by: Magnesium Hydroxide (Magnesium Hydroxide Susp 30 Ml Udc) 30 ml PO Q24H PRN PRN Reason: Constipation Stop: 08/22/21 13:42 Metoclopramide HCl (Metoclopramide Hcl Inj 5 Mg/Ml 2 Ml Vial) 10 mg IV Q6H PRN PRN Reason: Nausea &/or Vomiting Stop: 08/22/21 13:42 Multivitamins/Minerals (Calcium 600mg + Vit D 400 Iu Tab) 1 tab PO DAILY DAIJA Stop: 08/23/21 08:59 Last Admin: 07/24/21 09:40 Dose: 1 tab Documented by: Naloxone HCl (Naloxone Hcl 0.4 Mg/1 Ml Vial/Carp) 0.1 mg IV Q5M PRN PRN Reason: Oversedation/Resp depression Stop: 08/22/21 13:42 Ondansetron HCl (Ondansetron Inj 2 Mg/Ml 2 Ml Vial) 4 mg IV Q6H PRN PRN Reason: Nausea &/or Vomiting Stop: 08/22/21 13:42 Last Admin: 07/23/21 14:41 Dose: 4 mg Documented by: Ondansetron HCl (Ondansetron 4 Mg Od Tab) 4 mg PO Q6H PRN PRN Reason: Nausea Stop: 08/22/21 13:42 Oxycodone HCl (Oxycodone Hcl Ir 5 Mg Tab (Immediate Release)) 5 - 10 mg PO Q4H PRN PRN Reason: Pain & Pre PT Stop: 08/06/21 13:42 Pneumococcal Polyvalent Vaccine (Do Not Administer Pneumococcal Vaccine) 1 ea N/A PRN PRN PRN Reason: Notification Stop: 08/22/21 13:42 Polyethylene Glycol (Polyethylene (Miralax) 17 Gm Pack) 17 gm PO Q6 DAIJA Stop: 08/23/21 05:59 Last Admin: 07/24/21 05:37 Dose: Not Given Documented by: Senna/Docusate Sodium (Docusate Sodium/Senna 50/8.6mg Tab) 2 tab PO HS DAIJA Stop: 08/22/21 20:59 Last Admin: 07/23/21 20:18 Dose: 2 tab Documented by: Sodium Biphosphate/Sodium Phosphate (Sod Phosphate/Sod Biphosphate Enema 132 Ml Btl) 132 ml IL ONE PRN PRN Reason: Constipation Stop: 08/22/21 13:42 Sodium Chloride (Sodium Chloride 0.65% Na Soln 45 Ml ([place])) 1 sprays NA Q1H PRN PRN Reason: Nasal Congestion Stop: 08/22/21 16:55 Tramadol HCl (Tramadol Hcl 50 Mg Tablet) 50 - 100 mg PO Q4H PRN PRN Reason: Moderate-Severe pain & Pre PT Stop: 08/22/21 13:42 Triamcinolone Acetonide (Triamcinolone Acet 0.1% Cr 80 Gm Tube) 1 appln EXT BID PRN PRN Reason: rash Stop: 08/22/21 09:05 Vitamin D (Cholecalciferol 400 Units 10 Mcg Tab) 400 units PO DAILY DAIJA Stop: 08/23/21 08:59 Last Admin: 07/24/21 09:41 Dose: 400 units Documented by:
[2021-07-24 12:10] VITALS: TEMP 97.9
[2021-07-24] MEDS: diphenhydrAMINE 50 MG/ML VIAL IV PRN (13:37)
[2021-07-24 13:44] VITALS: BP 158/77
[2021-07-24 14:49] VITALS: O2SAT 95
[2021-07-24 15:22] VITALS: PULSE 82
--- NOTE | 2021-07-24 16:04 | Discharge Summary ---
Date of Service July 24, 2021 Principal Diagnosis Cervical spinal stenosis with radiculopathy Discharge Data Allergies Allergy/AdvReac Type Severity Reaction Status Date / Time Iodinated Contrast Media Allergy Severe dyspnea Verified 07/18/21 13:20 azithromycin Allergy Intermediate rash Verified 07/18/21 13:20 cefaclor Allergy Intermediate hives Verified 07/18/21 16:09 erythromycin base Allergy Intermediate hives Verified 07/18/21 16:09 levalbuterol Allergy Intermediate chest pain Verified 07/18/21 13:20 minocycline Allergy Intermediate rash Verified 07/18/21 13:20 nitrofurantoin Allergy Intermediate possible Verified 07/18/21 16:09 hives or dyspnea phenazopyridine Allergy Intermediate dyspnea Verified 07/18/21 16:09 Sulfa (Sulfonamide Allergy Intermediate hives Verified 07/18/21 16:09 Antibiotics) metronidazole AdvReac Intermediate GI symptoms Verified 07/18/21 13:20 morphine AdvReac Intermediate vomiting Verified 07/18/21 13:20 levofloxacin AdvReac Mild abdominal Verified 07/18/21 16:09 pain Consultations 07/22/21 14:59 ED Decision to Admit Stat Procedures Performed Operation Date: 07/23/21 14:15 Actual Procedures p C4-C6 Anterior Cervical Discectomy Fusion(Bilateral) - Jean Carlos Quinn DO Ordered Studies 07/23/21 FL cervical 2-3V Routine Hospital Course (1) Cervical stenosis of spinal canal: Patient underwent anterior cervical discectomy fusion tolerated so was taken to orthopedic for postoperative. Postop day 1 she was swallowing well no hoarseness. Forearm symptoms are improved. Her strength is still limited but improving. Subsequently she was discharged home. Discharge orders instructions were on the chart for further review. Total Time Total Time Spent Total Time Spent (In Minutes): 20 minutes Discharge Plan Discharge Items Patient Disposition: Home - Self-Care Reason For Visit: CERVICAL STENOSIS Discharge Diagnosis: Cervical spinal stenosis with radiculopathy Activity: As commented below Non-emergency contact: Primary Care Provider Call non-emergency contact if: you have any medication questions Follow-up/Referrals: Devonte Sweeney DO [Primary Care Provider] - Diet: Regular Addtl Attending Provider Instructions: ACTIVITY RECOMMENDATIONS: SELF CARE INSTRUCTIONS AFTER CERVICAL FUSIONS 1. No smoking. Smoking drastically decreases the chance of a solid fusion. 2. No bending, lifting more than 5 pounds, or twisting (roll like a log when turning in bed). 3. You may shower 3 days after surgery. Thoroughly dry wound. Do not soak in the tub. 4. Cervical collar: Must be worn at all times including sleeping. You may remove the brace only to bath, eat and if you are sitting in a recliner. 5. Please walk as much as you can for exercise. Gradually increase the distance that you walk as your endurance increases. SPECIAL CARE INSTRUCTIONS: VERY IMPORTANT TO READ AND REVIEW A. Do not take any anti-inflammatory medications (i.e. Indocin, Advil, Aspirin, Naprosyn, Aleve, Motrin, etc.) as these may inhibit the chance of a solid fusion. Tylenol is okay to take. B. Your surgical incision has been closed with a cosmetic suture under the skin that will dissolve in about 6 weeks. In 14 days, you can use a pair of clean scissors and cut the suture that is left outside of the skin at the ends of your incision. C. Complications are uncommon, but please contact us if you have any signs or symptoms of: 1. wound infection (fever higher than 102.5 degrees F, redness, separation of wound, drainage, or increasing pain from the incision) 2. blood clots in legs (pain, swelling, redness and warmth in legs) 3. urinary tract infection (fever higher than 102.5 degrees, burning upon urination or increased frequency of urination) 4. nerve problems (inability to walk on your toes or heels, numbness, loss of bowel or bladder control) 5. any other symptoms that concern you. D. Please call the office at if you have any concerns or questions about your operation or recovery. MANAGING PAIN AFTER SPINAL SURGERY 1. Narcotic medication is intended for short-term use and will be provided for surgical pain. Surgical pain usually lasts for a period of 4-6 weeks. Narcotic medication includes Percocet, Vicodin, Darvocet, Tylenol #3 or Lortab. 2. Longer-term pain is more appropriately treated with non-narcotic medication such as Tylenol ES. 3. Muscle spasm is not appropriately treated with narcotics. Muscle relaxers such as Soma, Flexeril or Skelaxin can be used along with Tylenol ES. 4. Remember that we all live with some "aches and pains". This is not unusual or uncommon after an injury or as we get older. 5. We will provide appropriate medication within the normal guidelines of their prescribed use. We will also be very cautious and aware of potential abuse and extended duration of patients' medication needs. 6. Please allow 2-3 days to process refills. Prescriptions will not be mailed but must be picked up at the office. FOLLOW UP VISIT: Keep your scheduled follow-up appointment. Any questions, please call the office at . Pending Studies at Discharge: No Stand-Alone Forms: My [facility], Opioid Pain Management, Smoking Cessation Medications and DC Order Prescriptions: New oxycodone 5 mg tablet 5 mg PO Q6H PRN (Reason: pain, severe) Qty: 14 RF: 0 tramadol 50 mg tablet 50 mg PO Q6H PRN (Reason: pain, moderate) Qty: 14 RF: 0 Continued losartan 50 mg tablet 100 mg PO QAM RF: 0 lorazepam 0.5 mg tablet 0.25 mg PO HS PRN (Reason: Anxiety) RF: 0 lansoprazole 30 mg tablet,disintegrat, delay rel 30 mg PO QAM RF: 0 levothyroxine 137 mcg Tablet 137 mcg PO QAM RF: 0 cholestyramine (with sugar) 4 gram powder in packet 1 ea PO BID RF: 0 calcium carbonate-vitamin D2 500-125 mg-unit Tablet 1 tab PO DAILY RF: 0 amlodipine 10 mg tablet 10 mg PO DAILY RF: 0 lidocaine 5 % Adhesive Patch,Medicated 1 patch TOPICAL DAILY RF: 0 amoxicillin 400 mg/5 mL suspension for reconstitution 25 mg PO .UD RF: 0 cholecalciferol (vitamin D3) [Vitamin D3] 10 mcg (400 unit) Capsule 10 mcg PO DAILY RF: 0 Discharge Orders: Discharge Order (Routine); Ordered 07/24/21 Ordered By: Jean Carlos Quinn Admission Data Admit Date/Time: 07/22/21 15:40 Attending Provider: Jean Carlos Quinn Admit Provider: Jean Carlos Quinn Primary Care Provider: Devonte Sweeney Other Providers: Shweta Heart ; Jean Carlos Quinn Other Interventions: Discharge Summary Assessment (RN) Last Done: 07/24/21 15:20
[2021-07-24] MEDS ORDERED: diphenhydrAMINE 50 MG/ML VIAL IV SCH (21:00)
--- NOTE | 2021-08-02 13:52 | Coding Query ---
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 Please assist us with the question(s) below: Coding Question(s): The H&P documents, "Assessment cervical spinal stenosis with myeloradiculopathy", and the Operative Report documents, "Cervical spinal stenosis with radiculopathy", and the Discharge documents, "Cervical spinal stenosis with radiculopathy". It is not clear if myeloradiculopathy was ruled- out. Please specify below, in your clinical opinion. ( ) Cervical spinal stenosis with radiculopathy, not Myeloradiculopathy ( x) Cervical spinal stenosis with Myeloradiculopathy ( ) Other: Please Specify Physician's Response(s): Thank you Nova Brewster Principal Diagnosis: "that condition established after study, to be chiefly responsible for occasioning the admission of the patient to the hospital for care." Co-Existing Principal Diagnosis: "when two or more diagnoses equally meet the criteria for principal diagnosis as determined by the circumstances of admission, diagnostic work up, and/or therapy provided, and the Alphabetic Index, Tabular List, or another coding guideline does not provide sequencing direction, any one of the diagnoses may be sequenced first." "When the physician has documented what appears to be a current diagnosis in the body of the record, but has not included the diagnosis in the final diagnostic statement, the physician should be asked whether the diagnosis should be added." (Source Coding [facility] 2 QTR90. p3-4) LEIGH
== END 2021-07-24 16:32 | disposition home or self-care (01) | DRG 472 ==
LOC: ED 12:24 → 3N 15:40

== ENCOUNTER 2021-11-22 13:51 | Inpatient (IN) ==
--- NOTE | 2021-11-22 15:33 | Emergency Department Note ---
History of Present Illness General Chief complaint: Choking Time Seen by Provider: 11/22/21 15:12 Source: patient and family ( who is at the bed) Mode of arrival: ambulatory Limitations: no limitations History of Present Illness This patient is a 76-year-old female who has a history of ALS, comes in after having increasing phlegm and shortness of breath from this. She denies any significant cough. She uses suction at home but has been suctioning a lot more particularly from 4:57 in the morning. She has had some nausea. She has not had the COVID vaccine or any exposure. she has had no chest pain or abdominal pain. No fall or trauma. She had been having nutritional issues and was losing weight so they tried to put a feeding tube in last Friday but they could not get down her esophagus so they dilated it. G-tube was placed on and her nutritional intake is increased significantly since then through the G-tube. The G-tube is been functioning without any issues. She does not wear home oxygen. Home Medications Medication Instructions Recorded Confirmed Type lansoprazole 30 mg delayed 30 mg FEEDING TUBE QAM 07/08/19 11/22/21 History release,disintegrating tablet lorazepam 0.5 mg tablet 0.5 mg PO HS PRN 07/08/19 11/22/21 History losartan 50 mg tablet 100 mg FEEDING TUBE QAM 07/08/19 11/22/21 History lidocaine 5 % topical patch 1 patch TOPICAL DAILY 07/22/21 11/22/21 History scopolamine base 1 mg over 3 days 1 patch TRANSDERMAL Q3D PRN #4 ea 10/30/21 11/22/21 Rx transdermal patch glycopyrrolate 2 mg tablet 2 mg PO TID PRN 11/22/21 11/22/21 History guaifenesin 400 mg tablet 400 mg PO DAILY 11/22/21 11/22/21 History hydroxyzine HCl 25 mg tablet 25 mg FEEDING TUBE Q6 PRN 11/22/21 11/22/21 History ipratropium 0.5 mg-albuterol 3 mg 3 ml INHALATION TID PRN 11/22/21 11/22/21 History (2.5 mg base)/3 mL nebulization soln levothyroxine 112 mcg tablet 112 mcg FEEDING TUBE DAILYBB 11/22/21 11/22/21 History ondansetron HCl 4 mg/5 mL oral 4 mg PO UD PRN 11/22/21 11/22/21 History solution oxycodone 5 mg tablet 5 mg FEEDING TUBE Q6H PRN 11/22/21 11/22/21 History riluzole 50 mg tablet 50 mg PO BID 11/22/21 11/22/21 History Allergies Allergy/AdvReac Type Severity Reaction Status Date / Time Iodinated Contrast Media Allergy Severe dyspnea Verified 07/18/21 13:20 azithromycin Allergy Intermediate rash Verified 07/18/21 13:20 cefaclor Allergy Intermediate hives Verified 07/18/21 16:09 erythromycin base Allergy Intermediate hives Verified 07/18/21 16:09 levalbuterol Allergy Intermediate chest pain Verified 07/18/21 13:20 minocycline Allergy Intermediate rash Verified 07/18/21 13:20 nitrofurantoin Allergy Intermediate possible Verified 07/18/21 16:09 hives or dyspnea phenazopyridine Allergy Intermediate dyspnea Verified 07/18/21 16:09 Sulfa (Sulfonamide Allergy Intermediate hives Verified 07/18/21 16:09 Antibiotics) metronidazole AdvReac Intermediate GI symptoms Verified 07/18/21 13:20 morphine AdvReac Intermediate vomiting Verified 07/18/21 13:20 levofloxacin AdvReac Mild abdominal Verified 07/18/21 16:09 pain Past Med/Surg History Medical History ALS (amyotrophic lateral sclerosis) Cancer left breast (2015) s/p left lumpectomy/XRT, no chemo Cervical stenosis of spinal canal GERD (gastroesophageal reflux disease) controlled, stable. Patient sleeps elevated HS. 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) "Abnormal left breast mammogram Status post stereotactic biopsy 11/14/2015 revealing DCIS grade 1 Estrogen receptor positive and progesterone receptor positive Status post needle localization lumpectomy 12/20/2015 Stage pTis pNX Status post completion of radiation therapy 03/01/2016 received 3850 cGy utilizing accelerated partial breast irradiation." On 03/14/16 11:36 Ese Cabrera wrote "Abnormal left breast mammogram Status post stereotactic biopsy 11/14/2015 revealing DCIS grade 1 Estrogen receptor positive and progesterone receptor positive Status post needle localization lumpectomy 12/20/2015 Stage pTis pNX Status post completion of radiation therapy 03/01/2016 received 3850 cGy utilizing accelerated partial breast irradiation." On 02/01/16 11:23 Ese Cabrera wrote "Abnormal left breast mammogram Status post stereotactic biopsy 11/14/2015 revealing DCIS grade 1 Estrogen receptor positive and progesterone receptor positive Status post needle localization lumpectomy 12/20/2015 Stage pTis pNX" Osteoarthritis Surgical History H/O foot surgery R ORIF History of appendectomy History of carpal tunnel release R/L History of colectomy D/T DIVERTICULITIS History of colonoscopy MULTIPLE History of D&C D&C, hysteroscopy: 10/24/17: LMA# 4 at [facility] History of esophagogastroduodenoscopy (EGD) History of lumpectomy of left breast 2015 History of tonsillectomy S/P percutaneous endoscopic gastrostomy (PEG) tube placement Family History Mother Breast cancer Social History Smoking Status: Former smoker Tobacco Type: Cigarettes Second Hand Exposure: No; Do You Dip or Chew Tobacco: No; Tobacco Cessation Education Requested by Patient: No Hx Alcohol Use: No Hx Substance Use: No Preferred Language: Citizen Of [place] Communication Ability: Effective 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 Required: No Beliefs That Will Affect Care: None marital status: Current Living Situation: Spouse Other Information That Helps Us Care for You: No Feels Safe at Home: Yes Safety Concerns: Feels Safe At This Time Assistive Devices: Oxygen - Continuous Review of Systems A total of 10 systems reviewed and were otherwise negative Physical Exam Vital Signs Vital Signs - 24 hr 11/22/21 13:46 11/22/21 14:30 11/22/21 14:45 Temperature 36.9 C Temperature Source Oral Pulse Rate 86 76 71 Pulse Rate from SpO2 Sensor 76 72 Respiratory Rate 20 24 22 Respiratory Effort / Characteristics Respiratory Depth Normal Blood Pressure 143/86 H Blood Pressure Mean 105 Pulse Oximetry 89 L 93 93 Oxygen Delivery Method Nasal Cannula Oxygen Flow Rate Sepsis Recent Fever Within 48 Hours No Sepsis New/Unexplained Change in Mental Status No Sepsis Action Taken by Nursing No Action Required Oxygen Flow Rate - Titration 2 Pulse Oximetry Post Tiitration 96 11/22/21 15:00 11/22/21 15:15 11/22/21 15:25 Temperature Temperature Source Pulse Rate 78 82 79 Pulse Rate from SpO2 Sensor 78 81 Respiratory Rate 19 23 12 Respiratory Effort / Characteristics Non-Labored Respiratory Depth Blood Pressure Blood Pressure Mean Pulse Oximetry 94 95 95 Oxygen Delivery Method Oxygen Flow Rate 2 Sepsis Recent Fever Within 48 Hours Sepsis New/Unexplained Change in Mental Status Sepsis Action Taken by Nursing Oxygen Flow Rate - Titration Pulse Oximetry Post Tiitration 11/22/21 15:30 11/22/21 15:45 11/22/21 15:55 Temperature Temperature Source Pulse Rate 77 77 Pulse Rate from SpO2 Sensor 77 77 Respiratory Rate 23 25 H Respiratory Effort / Characteristics Non-Labored Respiratory Depth Blood Pressure Blood Pressure Mean Pulse Oximetry 96 96 Oxygen Delivery Method Oxygen Flow Rate Sepsis Recent Fever Within 48 Hours Sepsis New/Unexplained Change in Mental Status Sepsis Action Taken by Nursing Oxygen Flow Rate - Titration Pulse Oximetry Post Tiitration 11/22/21 16:00 11/22/21 16:15 11/22/21 16:25 Temperature Temperature Source Pulse Rate 77 75 Pulse Rate from SpO2 Sensor 77 Respiratory Rate 27 H 21 12 Respiratory Effort / Characteristics Spontaneous Respiratory Depth Blood Pressure Blood Pressure Mean Pulse Oximetry 97 95 Oxygen Delivery Method Nasal Cannula Oxygen Flow Rate 2 Sepsis Recent Fever Within 48 Hours Sepsis New/Unexplained Change in Mental Status Sepsis Action Taken by Nursing Oxygen Flow Rate - Titration Pulse Oximetry Post Tiitration 11/22/21 16:30 11/22/21 16:33 11/22/21 16:45 Temperature Temperature Source Pulse Rate 73 74 72 Pulse Rate from SpO2 Sensor 73 72 Respiratory Rate 23 23 23 Respiratory Effort / Characteristics Non-Labored Respiratory Depth Blood Pressure 103/65 Blood Pressure Mean 77 Pulse Oximetry 95 96 95 Oxygen Delivery Method Nasal Cannula Oxygen Flow Rate 2 Sepsis Recent Fever Within 48 Hours Sepsis New/Unexplained Change in Mental Status Sepsis Action Taken by Nursing Oxygen Flow Rate - Titration Pulse Oximetry Post Tiitration 11/22/21 17:00 Temperature Temperature Source Pulse Rate 69 Pulse Rate from SpO2 Sensor 69 Respiratory Rate 21 Respiratory Effort / Characteristics Non-Labored Respiratory Depth Blood Pressure Blood Pressure Mean Pulse Oximetry 96 Oxygen Delivery Method Nasal Cannula Oxygen Flow Rate 2 Sepsis Recent Fever Within 48 Hours Sepsis New/Unexplained Change in Mental Status Sepsis Action Taken by Nursing Oxygen Flow Rate - Titration Pulse Oximetry Post Tiitration General: Well developed, chronically ill-appearing older female who is on supplemental oxygen and using suction intermittently but in no acute distress, breathing comfortably on room air. Normal speech HEENT: Normal cephalic atraumatic. Pupils are equal round and reactive to light. Extraocular movements are intact. Oropharynx is pink with moist mucous membranes. No swelling of the mouth lips or tongue. Neck: Supple with a midline trachea. No meningeal signs or stiffness, no JVD or bruits. No Stridor. Chest: Clear to auscultation bilaterally except for some crackles in the bases mostly on the right no wheezes or rhonchi. No increased work of breathing. Heart: Regular rate and rhythm without murmurs or gallops. Abdomen: Soft nontender, nondistended without rebound guarding or rigidity. Extremities: No cyanosis clubbing baseline asymmetry of left leg and calf which is unchanged and has been evaluated for DVT in the past and but negative. Spine/Back. Non tender to palpation. No CVA tenderness Skin: Good turgor without rashes. Neurologic exam: Cranial nerves two through 12 are intact. Baseline weakness of the left side compared to the right which is unchanged she tells Course Administered Medications Enteral Nutritional Formula (Peptamen 1.5 Kavon 1,000 Ml Bag) 1,000 ml PEG UD [facility]; Protocol Stop: 12/22/21 18:14 Last Admin: 11/22/21 22:12 Dose: 1,000 ml Documented by: [id number] Heparin Sodium (Porcine) (Heparin Sod 5,000 Unit/0.5 Ml Vial) 5,000 units SQ Q12 DAIJA Stop: 12/22/21 21:29 Last Admin: 11/22/21 21:47 Dose: 5,000 units Documented by: [id number] Miscellaneous (Check Scopolamine Patch Placement) 1 ea N/A QS [facility] Stop: 12/23/21 00:00 Last Admin: 11/22/21 23:27 Dose: 1 ea Documented by: Sterile Water (Tube Feeding Water Flush) 150 ml GT Q4H [facility] Stop: 12/22/21 18:14 Last Admin: 11/22/21 22:18 Dose: 150 ml Documented by: [id number] Admin: 11/22/21 20:46 Dose: Not Given Documented by: [id number] Medical Decision Making Differential Diagnosis ALS exacerbation, electrolyte or metabolic abnormality, pneumonia, sepsis, aspiration, CHF, cardiac disease Medical Records Attestation: I reviewed the patient's medical records. Home Medications Current Medication List: was personally reviewed by me Laboratory Data Attestation: I reviewed the patient's lab results. Result diagrams: 11/22/21 16:18 11/22/21 16:18 Lab Results 11/22/21 11/22/21 11/22/21 Range/Units 16:18 16:18 16:18 WBC 8.12 (4.8-10.8) K/uL RBC 5.07 (4.2-5.4) M/uL Hgb 14.7 (12.0-16.0) g/dL Hct 44.7 (37-47) % MCV 88.2 (80-100) fL MCH 29.0 (25-34) pg MCHC 32.9 (32-36) g/dL RDW Std Deviation 48.9 H (36.4-46.3) fL RDW Coeff of Marcela 15.5 H (11.5-14.5) % Plt Count 330 (130-400) K/uL MPV 11.7 H (7.4-10.4) fL Immature Gran % (Auto) 0.5 % Neut % (Auto) 69.4 % Lymph % (Auto) 19.5 % Jennings % (Auto) 7.0 % Eos % (Auto) 3.1 % Baso % (Auto) 0.5 % Neut # (Auto) 5.64 (1.4-6.5) K/uL Lymph # (Auto) 1.58 (1.2-3.4) K/uL Jennings # (Auto) 0.57 (0.11-0.59) K/uL Eos # (Auto) 0.25 (0-0.5) K/uL Baso # (Auto) 0.04 (0-0.2) K/uL Immature Gran # (Auto) 0.04 H (0.00-0.02) K/uL PT (9.0-12.0) Seconds INR (0.9-1.1) APTT (21.0-31.0) Seconds PTT Ratio Sodium 137 (136-145) mmol/L Potassium 4.3 (3.5-5.1) mmol/L Chloride 100 (98-107) mmol/L Carbon Dioxide 30 (21-32) mmol/L Anion Gap 7 (3-11) BUN 26 H (6-23) mg/dl Creatinine 0.72 (0.6-1.2) mg/dl Est Cr Clr Drug Dosing Not Reportable Est GFR ( Amer) 93.6 ml/min Est GFR (Non-Af Amer) 80.8 ml/min BUN/Creatinine Ratio 36.1 H (10-20) Glucose 96 (70-99(Fasting)) mg/dl Lactate (0.4-2.0) mmol/L Calcium 10.2 H (8.5-10.1) mg/dl Magnesium 2.0 (1.7-2.4) mg/dl Total Bilirubin 0.4 (0.2-1.0) mg/dl AST 28 (13-39) U/L ALT 28 (7-52) U/L Alkaline Phosphatase 99 (34-104) U/L Troponin I < 0.03 (0-0.04) ng/ml Total Protein 7.3 (6.0-8.3) gm/dl Albumin 4.3 (3.4-5.0) gm/dl Globulin 3.0 (2.5-4.0) gm/dl Albumin/Globulin Ratio 1.4 (0.9-2) Procalcitonin 0.27 (0-0.5) ng/ml SARS-CoV-2 (PCR) (Negative) Influenza Type A (PCR) (Neg) Influenza Type B (PCR) (Neg) RSV (RT-PCR) (Neg) 11/22/21 11/22/21 11/22/21 Range/Units 16:18 16:18 16:56 WBC (4.8-10.8) K/uL RBC (4.2-5.4) M/uL Hgb (12.0-16.0) g/dL Hct (37-47) % MCV (80-100) fL MCH (25-34) pg MCHC (32-36) g/dL RDW Std Deviation (36.4-46.3) fL RDW Coeff of Marcela (11.5-14.5) % Plt Count (130-400) K/uL MPV (7.4-10.4) fL Immature Gran % (Auto) % Neut % (Auto) % Lymph % (Auto) % Jennings % (Auto) % Eos % (Auto) % Baso % (Auto) % Neut # (Auto) (1.4-6.5) K/uL Lymph # (Auto) (1.2-3.4) K/uL Jennings # (Auto) (0.11-0.59) K/uL Eos # (Auto) (0-0.5) K/uL Baso # (Auto) (0-0.2) K/uL Immature Gran # (Auto) (0.00-0.02) K/uL PT 9.8 (9.0-12.0) Seconds INR 0.9 (0.9-1.1) APTT 24.6 (21.0-31.0) Seconds PTT Ratio 0.9 Sodium (136-145) mmol/L Potassium (3.5-5.1) mmol/L Chloride (98-107) mmol/L Carbon Dioxide (21-32) mmol/L Anion Gap (3-11) BUN (6-23) mg/dl Creatinine (0.6-1.2) mg/dl Est Cr Clr Drug Dosing Est GFR ( Amer) ml/min Est GFR (Non-Af Amer) ml/min BUN/Creatinine Ratio (10-20) Glucose (70-99(Fasting)) mg/dl Lactate 1.1 (0.4-2.0) mmol/L Calcium (8.5-10.1) mg/dl Magnesium (1.7-2.4) mg/dl Total Bilirubin (0.2-1.0) mg/dl AST (13-39) U/L ALT (7-52) U/L Alkaline Phosphatase (34-104) U/L Troponin I (0-0.04) ng/ml Total Protein (6.0-8.3) gm/dl Albumin (3.4-5.0) gm/dl Globulin (2.5-4.0) gm/dl Albumin/Globulin Ratio (0.9-2) Procalcitonin (0-0.5) ng/ml SARS-CoV-2 (PCR) NEGATIVE (Negative) Influenza Type A (PCR) Negative (Neg) Influenza Type B (PCR) Negative (Neg) RSV (RT-PCR) Negative (Neg) Imaging Data Attestation: I personally reviewed and interpreted this imaging study as follows: My Impression: Chest x-ray-no acute infiltrate, failure, pneumothorax seen Radiologist's Impression: Chest X-Ray 11/22/21 15:25 XR chest 1V portable CLINICAL HISTORY: SEPSIS. COMPARISON STUDY: 10/30/2021 TECHNIQUE: 1 view of the chest FINDINGS: Single frontal view of the chest demonstrates the cardiomediastinal silhouette to be within normal limits. The lungs are clear of alveolar opacities. There is no evidence for pleural effusion. There is no evidence for vascular congestion. There is no acute osseous pathology. IMPRESSION: 1. No acute cardiopulmonary disease. There is again a decreased inspiratory effort. ACT 112: Negative or not required by law. Electronically signed by: Desmond Vega M.D. 11/22/2021 4:11 PM ECG Data Attestation: I personally reviewed and interpreted this ECG as follows: Indication: + SOB/dyspnea Rate (beats per minute): 74 Rhythm: + normal sinus ECG Intervals/blocks: + Normal QRS, + Normal QT and + Normal TX ECG [place]: + Left axis deviation ECG ST segments: + ST depression ECG Findings: + LVH; no PACs or no PVCs Comparison ECG Date: from (10/30/21) Change: no significant change MDM Narrative This patient comes in as described above. 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 She has ALS and is having increasing difficulty handling her secretion her nutrition has increased within the last week due to a G-tube. She has had no vomiting but them concerned about aspiration. She is afebrile here she was hypoxemic on room air but without oxygen she is a 95% appears in no significant respiratory distress. IV access established and blood work was obtained. EKG and chest x-ray obtained she was swabbed for flu and Covid. She was reassessed frequently. She does not suggest acute coronary syndrome troponin is negative. Chest x-ray does not show congestive heart failure pneumonia or pneumothorax. There is no infiltrate seen. She has no elevation of white count. Her BUN is mildly elevated but the rest of her electrolytes look good. Covid testing was negative. She has had trouble with her secretions and she has ALS. She is also hypoxemic and I do think needs to be admitted for further treatment and evaluation [facility] Continuous cardiac monitoring: Orders placed in the EMR for continuous cardiac monitoring. Upon my interpretation the patient was noted to be normal sinus rhythm with a rate of 74 Impression & Plan SOB (shortness of breath), ALS (amyotrophic lateral sclerosis), Lab test negative for COVID-19 virus, Hypoxemia Discharge Plan Visit Data Chief Complaint: Choking ED Provider: Gianni Schultz Discharge Problem: SOB (shortness of breath), ALS (amyotrophic lateral sclerosis), Lab test negative for COVID-19 virus, Hypoxemia Patient Disposition: Admitted As Inpatient Discharge Instructions Interventions: ED Discharge Assessment Last Done: 11/22/21 21:09
--- NOTE | 2021-11-22 16:13 | XRay Report ---
XR chest 1V portable CLINICAL HISTORY: SEPSIS. COMPARISON STUDY: 10/30/2021 TECHNIQUE: 1 view of the chest FINDINGS: Single frontal view of the chest demonstrates the cardiomediastinal silhouette to be within normal li mits. The lungs are clear of alveolar opacities. There is no evidence for pleural effusion. There is no evidence for vascular congestion. There is no acute osseous pathology. IMPRESSION: 1. No acute cardiopulmonary disease. There is again a decreased inspiratory effort. ACT 112: Negative or not required by law. Electronically signed by: Desmond Vega M.D. 11/22/2021 4:11 PM
[2021-11-22 16:35] LABS: Basophils # (auto) 0.04 K/uL (0-0.2); Basophils % (auto) 0.5 %; Eosinophils # (auto) 0.25 K/uL (0-0.5); Eosinophils % (auto) 3.1 %; Hematocrit (blood only) 44.7 % (37-47); Hemoglobin 14.7 g/dL (12.0-16.0); Immature Granulocytes # (auto) 0.04 K/uL (0.00-0.02); Immature Granulocytes % (auto) 0.5 %; Lymphocytes # (auto) 1.58 K/uL (1.2-3.4); Lymphocytes % (auto) 19.5 %; Mean Corpuscular Hgb Conc 32.9 g/dL (32-36); Mean Corpuscular Volume 88.2 fL (80-100); Mean Platelet Volume 11.7 fL (7.4-10.4); Monocytes # (auto) 0.57 K/uL (0.11-0.59); Neutrophils # (auto) 5.64 K/uL (1.4-6.5); Neutrophils % (auto) 69.4 %; Platelet Count 330 K/uL (130-400); RDW Coefficient of Variation 15.5 % (11.5-14.5); RDW Standard Deviation 48.9 fL (36.4-46.3); Red Blood Count 5.07 M/uL (4.2-5.4); White Blood Count 8.12 K/uL (4.8-10.8)
[2021-11-22 16:48] LABS: INR 0.9 (0.9-1.1); Partial Thromboplastin Ratio 0.9; Partial Thromboplastin Time 24.6 Seconds (21.0-31.0); Prothrombin Time 9.8 Seconds (9.0-12.0)
[2021-11-22 16:58] LABS: Troponin I < 0.03 ng/ml (0-0.04)
[2021-11-22 17:00] LABS: Alanine Aminotransferase 28 U/L (7-52); Albumin Globulin Ratio 1.4 (0.9-2); Albumin Level 4.3 gm/dl (3.4-5.0); Alkaline Phosphatase 99 U/L (34-104); Anion Gap 7 (3-11); Aspartate Aminotransferase 28 U/L (13-39); BUN Creatinine Ratio 36.1 (10-20); Bilirubin,Total 0.4 mg/dl (0.2-1.0); Blood Urea Nitrogen 26 mg/dl (6-23); Calcium 10.2 mg/dl (8.5-10.1); Carbon Dioxide 30 mmol/L (21-32); Chloride 100 mmol/L (98-107); Est GFR (African American) 93.6 ml/min; Est GFR (Non-African American) 80.8 ml/min; Glucose 96 mg/dl (70-99(Fasting)); Potassium 4.3 mmol/L (3.5-5.1); Sodium 137 mmol/L (136-145); Total Protein 7.3 gm/dl (6.0-8.3)
[2021-11-22 17:45] LABS: Influenza A virus by PCR Negative (Neg); Influenza B virus by PCR Negative (Neg); RSV by PCR Negative (Neg); SARS CoV2 RNA(COVID-19) InHosp NEGATIVE (Negative)
--- NOTE | 2021-11-22 18:19 | History & Physical Report ---
Date of Service November 22, 2021 Assessment & Plan (1) Hypoxia: (2) Excessive oral secretions: (3) ALS (amyotrophic lateral sclerosis): Plan: Admit to [facility] Patient presenting from home with reports of increased oral secretions and sensation of choking. History of ALS, diagnosis 08/2021 has been a rapidly progressing disease. Patient had esophageal dilation on 11/13/2021, PEG tube placed on 11/15/2021 Currently established with [facility] palliative care provider Patient mildly hypoxic on room air at 89%, currently saturating well on 2 L of oxygen via nasal cannula No signs of pneumonia on CXR, normal procalcitonin Wean O2 as able Consult GI regarding increased oral secretions Continue scopolamine patch, guaifenesin, glycopyrrolate Dietitian consult for tube feedings (4) Unilateral edema of lower extremity: Plan: LLE edema noted, patient reports is chronic LLE venous Doppler 09/06/2021 negative for DVT Patient denies pain and worsening swelling (5) HTN (hypertension): Plan: BP controlled, continue losartan (6) Hypothyroidism: Plan: Continue levothyroxine (7) DVT prophylaxis: Plan: SQ heparin Dispo - Likely discharge home the next day or so. states that patient is established with palliative care services, does not wish to proceed with hospice at this time as they wish to continue with speech therapy services. They are awaiting hospital bed and Viet lift. Case management consult. History of Present Illness Chief Complaint: Increased oral secretions Primary Care Provider: Devonte Sweeney DO 76-year-old female with PMH ALS s/p PEG tube, hypothyroidism, chronic interstitial lung disease, HTN, GERD, history of DVT s/p anticoagulation treatment, and other problems listed below who presents the ED for evaluation of increased oral secretions. Patient diagnosed with ALS August 2021 and has had rapidly progressing disease. Patient is mostly paralyzed on her left side and is bedbound. Had PEG tube placed last week, currently receiving tube feedings. Prior to PEG tube placement, patient had EGD with esophageal dilation. Patient has struggled with oral secretions since her diagnosis. She notes a brief improvement after esophageal dilation however increased secretions returned quickly. Patient notes a choking sensation and feeling short of breath at times. She has a very weak cough reflex. No chest pain. Denies lightheadedness, dizziness, diaphoresis, syncopal events. Increase tube feedings to 4 times a day yesterday however did not tolerate and reduce back to 3 times a day. Denies abdominal pain, vomiting, diarrhea. No fevers or chills. Reports urinary frequency however attributes this to starting tube feedings and free water flushes. In the ED, patient was mildly hypoxic on room air at 89%, she is currently saturating well on 2 L of oxygen via nasal cannula. Labs are unremarkable, CXR shows no signs of pneumonia. Allergies Allergy/AdvReac Type Severity Reaction Status Date / Time Iodinated Contrast Media Allergy Severe dyspnea Verified 07/18/21 13:20 azithromycin Allergy Intermediate rash Verified 07/18/21 13:20 cefaclor Allergy Intermediate hives Verified 07/18/21 16:09 erythromycin base Allergy Intermediate hives Verified 07/18/21 16:09 levalbuterol Allergy Intermediate chest pain Verified 07/18/21 13:20 minocycline Allergy Intermediate rash Verified 07/18/21 13:20 nitrofurantoin Allergy Intermediate possible Verified 07/18/21 16:09 hives or dyspnea phenazopyridine Allergy Intermediate dyspnea Verified 07/18/21 16:09 Sulfa (Sulfonamide Allergy Intermediate hives Verified 07/18/21 16:09 Antibiotics) metronidazole AdvReac Intermediate GI symptoms Verified 07/18/21 13:20 morphine AdvReac Intermediate vomiting Verified 07/18/21 13:20 levofloxacin AdvReac Mild abdominal Verified 07/18/21 16:09 pain Home Medications Medication Instructions Recorded Confirmed Type lansoprazole 30 mg delayed 30 mg FEEDING TUBE QAM 07/08/19 11/22/21 History release,disintegrating tablet lorazepam 0.5 mg tablet 0.5 mg PO HS PRN 07/08/19 11/22/21 History losartan 50 mg tablet 100 mg FEEDING TUBE QAM 07/08/19 11/22/21 History lidocaine 5 % topical patch 1 patch TOPICAL DAILY 07/22/21 11/22/21 History scopolamine base 1 mg over 3 days 1 patch TRANSDERMAL Q3D PRN #4 ea 10/30/21 11/22/21 Rx transdermal patch glycopyrrolate 2 mg tablet 2 mg PO TID PRN 11/22/21 11/22/21 History guaifenesin 400 mg tablet 400 mg PO DAILY 11/22/21 11/22/21 History hydroxyzine HCl 25 mg tablet 25 mg FEEDING TUBE Q6 PRN 11/22/21 11/22/21 History ipratropium 0.5 mg-albuterol 3 mg 3 ml INHALATION TID PRN 11/22/21 11/22/21 History (2.5 mg base)/3 mL nebulization soln levothyroxine 112 mcg tablet 112 mcg FEEDING TUBE DAILYBB 11/22/21 11/22/21 History ondansetron HCl 4 mg/5 mL oral 4 mg PO UD PRN 11/22/21 11/22/21 History solution oxycodone 5 mg tablet 5 mg FEEDING TUBE Q6H PRN 11/22/21 11/22/21 History riluzole 50 mg tablet 50 mg PO BID 11/22/21 11/22/21 History Past Med/Surg History Medical History ALS (amyotrophic lateral sclerosis) Cancer left breast (2015) s/p left lumpectomy/XRT, no chemo Cervical stenosis of spinal canal GERD (gastroesophageal reflux disease) controlled, stable. Patient sleeps elevated HS. 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) "Abnormal left breast mammogram Status post stereotactic biopsy 11/14/2015 revealing DCIS grade 1 Estrogen receptor positive and progesterone receptor positive Status post needle localization lumpectomy 12/20/2015 Stage pTis pNX Status post completion of radiation therapy 03/01/2016 received 3850 cGy ut ilizing accelerated partial breast irradiation." On 03/14/16 11:36 Ese Cabrera wrote "Abnormal left breast mammogram Status post stereotactic biopsy 11/14/2015 revealing DCIS grade 1 Estrogen receptor positive and progesterone receptor positive Status post needle localization lumpectomy 12/20/2015 Stage pTis pNX Status post completion of radiation therapy 03/01/2016 received 3850 cGy utilizing accelerated partial breast irradiation." On 02/01/16 11:23 Ese Cabrera wrote "Abnormal left breast mammogram Status post stereotactic biopsy 11/14/2015 revealing DCIS grade 1 Estrogen receptor positive and progesterone receptor positive Status post needle localization lumpectomy 12/20/2015 Stage pTis pNX" Osteoarthritis Surgical History H/O foot surgery R ORIF History of appendectomy History of carpal tunnel release R/L History of colectomy D/T DIVERTICULITIS History of colonoscopy MULTIPLE History of D&C D&C, hysteroscopy: 10/24/17: LMA# [address] 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 Beliefs That Will Affect Care: None marital status: Current Living Situation: Spouse Feels Safe at Home: Yes Assistive Devices: Oxygen - Continuous Review of Systems Review of Systems: ROS per HPI, all other systems reviewed and negative Physical Exam Constitutional: + ill appearing (Chronically) and + thin; no acute distress Eyes: PERRL, conjunctivae normal, anicteric sclerae ENMT: Ears: no external ear abnormality Nose: no external nose abnormality Mouth: + dry oral mucous membranes Small amount of thick secretions noted Respiratory: normal respiratory effort, lungs clear to auscultation Cardiovascular: Rate/Rhythm: regular rate and regular rhythm Vessels: normal peripheral pulses Extremities: + edema (+1-2 edema LLE) Gastrointestinal (Abdomen): normal bowel sounds, soft, nontender, no hepatosplenomegaly Musculoskeletal: Strength 1/5 on left, 3-4/5 on right Skin: no rashes, warm and dry Neurologic: Speech / Cognition: + abnormal speech (Mild dysarthria noted, chronic) Cranial Nerves: PERRL, normal accommodation, EOM intact bilaterally and normal facial strength Psychiatric: Orientation: alert and oriented x 3 Affect: + flat affect Results & Data Results & Data ([facility]) Vital Signs (Past 12 Hours) Vital Signs Temp Pulse Resp BP Pulse Ox 11/22/21 17:15 72 22 97 11/22/21 17:00 69 21 96 11/22/21 16:45 72 23 95 11/22/21 16:33 74 23 103/65 96 11/22/21 16:30 73 23 95 11/22/21 16:25 12 95 11/22/21 16:15 75 21 11/22/21 16:00 77 27 H 97 11/22/21 15:45 77 25 H 96 11/22/21 15:30 77 23 96 11/22/21 15:25 79 12 95 11/22/21 15:15 82 23 95 11/22/21 15:00 78 19 94 11/22/21 14:45 71 22 93 11/22/21 14:30 76 24 93 11/22/21 13:46 36.9 C 86 20 143/86 H 89 L Laboratory Results Short CBC 11/22/21 Range/Units 16:18 WBC 8.12 (4.8-10.8) K/uL Hgb 14.7 (12.0-16.0) g/dL Hct 44.7 (37-47) % Plt Count 330 (130-400) K/uL BMP 11/22/21 16:18 Sodium 137 Potassium 4.3 Chloride 100 Carbon Dioxide 30 BUN 26 H Creatinine 0.72 Glucose 96 Calcium 10.2 H Cardiac Enzymes 11/22/21 Range/Units 16:18 Troponin I < 0.03 (0-0.04) ng/ml Liver Function 11/22/21 Range/Units 16:18 Total Bilirubin 0.4 (0.2-1.0) mg/dl AST 28 (13-39) U/L ALT 28 (7-52) U/L Alkaline Phosphatase 99 (34-104) U/L Albumin 4.3 (3.4-5.0) gm/dl Code Status & VTE Plan Code Status Patient is a DNR as per my discussion with her. Patient states that her , Ghulam, will would be her decision maker in the event she were to be unable to. VTE Prophylaxis Plan VTE Prophylaxis will be ordered: Yes Supervising Physician Co-Signing Physician Notes Attending addendum: The patient was seen and examined in emergency room in presence of the She is very weak and lethargic with ALS and also status post PEG tube placement and complaining of increasing thick secretion in oropharyngeal area and upper esophagus which cannot be suctioned out Has been getting shortness of breath and getting discomfort too, has cough but no chest pain and/or palpitation Has been feeding through PEG tube On examination Very weak, cachectic and lethargic Anxious Hemodynamically stable Chest-coarse crackles bilaterally Heart-S1, [id number] Abdomen-benign, PEG tube in site to without any inflammation and or cellulitis Extremities-negative for any edema on right,trace on left 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 Generally weak and lethargic, more weakness involving the left lower extremity. Sensations okay Her labs, EKG and imaging studies reviewed Recently diagnosed ALS with more left-sided weakness and is status post PEG tube placement for esophageal stenosis status post dilatation Has been having more thick secretion in the esophagus with minimal shortness of breath Will need GI evaluation Agree with assessment and plan as mentioned above by Maxine Douglass
[2021-11-22 18:38] LABS: Appearance Urine Clear (Clear); Bacteria Urine Automated Negative (Negative); Bilirubin Urine Negative (Negative); Blood Urine Negative (Negative); Color Urine Yellow; Glucose Urine UA Negative (Negative); Ketones Urine Negative (Negative); Leukocyte Esterase Urine Trace (Negative); Nitrite Urine Negative (Negative); Protein Urine Negative (Negative); RBC Urine Automated 0-4 /hpf (0-4); Specific Gravity Urine 1.011 (1.000-1.030); Urobilinogen Urine Negative (Negative)
[2021-11-22] MEDS: TUBE FEEDING WATER FLUSH GT SCH ×2 (20:46→22:18)
[2021-11-22] MEDS ORDERED: ACETAMINOPHEN 325 MG TAB PEG PRN (21:05)
[2021-11-22] MEDS ORDERED: hydrOXYzine HCl 25 MG TAB PEG PRN (21:05)
[2021-11-22] MEDS ORDERED: SCOPOLAMINE 1 MG TDSY TD PRN (21:05)
[2021-11-22] MEDS ORDERED: oxyCODONE HCL IR 5 MG TAB (IMMEDIATE RELEASE) PEG PRN (21:05)
[2021-11-22] MEDS: HEPARIN SOD 5,000 UNIT/0.5 ML VIAL SQ SCH (21:47)
[2021-11-22] MEDS: PEPTAMEN 1.5 CAL 1,000 ML BAG PEG SCH (22:12)
[2021-11-22] MEDS: CHECK SCOPOLAMINE PATCH PLACEMENT SCH (23:27)
[2021-11-23] MEDS ORDERED: [UNRECOGNIZED DRUG - OTHER] SCH
[2021-11-23] MEDS: GLYCOPYRROLATE 1 MG TAB PO PRN (00:28)
[2021-11-23] MEDS: LORazepam 0.5 MG TAB PO PRN ×2 (00:40→20:44)
[2021-11-23] MEDS: TUBE FEEDING WATER FLUSH GT SCH ×6 (02:17→22:09)
[2021-11-23] MEDS ORDERED: HYOSCYAMINE SULFATE 0.125 MG TAB PO STA (03:55)
[2021-11-23] MEDS: HYOSCYAMINE SULFATE 0.125 MG TAB SL PRN (04:42)
[2021-11-23] MEDS: LEVOTHYROXINE SODIUM 112 MCG TABLET PEG SCH (05:40)
[2021-11-23] MEDS ORDERED: SODIUM CHLORIDE 0.9% 1000ML 1,000 ML IV ONE (06:33)
[2021-11-23 06:42] LABS: Hematocrit (blood only) 41.8 % (37-47); Hemoglobin 13.6 g/dL (12.0-16.0); Mean Corpuscular Hemoglobin 29.1 pg (25-34); Mean Corpuscular Hgb Conc 32.5 g/dL (32-36); Mean Corpuscular Volume 89.3 fL (80-100); Mean Platelet Volume 11.5 fL (7.4-10.4); Platelet Count 294 K/uL (130-400); RDW Coefficient of Variation 15.5 % (11.5-14.5); RDW Standard Deviation 49.3 fL (36.4-46.3); Red Blood Count 4.68 M/uL (4.2-5.4); White Blood Count 7.04 K/uL (4.8-10.8)
[2021-11-23 07:10] LABS: BUN Creatinine Ratio 39.1 (10-20); Calcium 9.7 mg/dl (8.5-10.1); Est GFR (African American) 97.3 ml/min; Potassium 4.2 mmol/L (3.5-5.1)
[2021-11-23] MEDS: guaiFENesin 200 MG TAB PEG SCH (08:23)
[2021-11-23] MEDS: LOSARTAN POTASSIUM 50 MG TAB PEG SCH (08:23)
[2021-11-23] MEDS: RILUZOLE 50 MG PO SCH ×2 (08:24→20:43)
[2021-11-23] MEDS: HEPARIN SOD 5,000 UNIT/0.5 ML VIAL SQ SCH (08:25)
[2021-11-23] MEDS: LANSOPRAZOLE 30 MG SOLTAB PEG SCH (08:29)
[2021-11-23] MEDS: CHECK SCOPOLAMINE PATCH PLACEMENT SCH ×2 (08:30→17:13)
[2021-11-23] MEDS: POLYETHYLENE (MIRALAX) 17 GM PACK PO SCH ×2 (10:07→10:39)
--- NOTE | 2021-11-23 11:04 | Gastrointestinal Consultation ---
Date of Consultation November 23, 2021 Assessment & Plan (1) ALS (amyotrophic lateral sclerosis): Increased secretions are secondary to the ALS disease process/ALS related to poor esophageal motility. Moderate cricopharyngeal stenosis was dilated adequately during recent EGD and after dilation no significant narrowing of the esophagus. The PEG tube was placed by IR not because of the stenosis, but because there was no transillumination thus we were not endoscopically able to assure a safe site. Radiological imaging was necessary locate and ensure a safe placement site. There would be no benefit to repeat endoscopy at this time. Would defer management of secretions to palliative care. GI will sign off. Please notify us if new GI issues or questions. Supervising Physician Co-Signing Physician Notes I performed a history and physical examination of the patient today, including specifically on physical exam - soft abdomen. I have discussed the patient's management with the advanced practitioner. Please refer to the nurse practitioner's note for the documented findings and plan of care. patient with poor ability to handle her oral secretion is oropharyngeal and related to her underlying ALS. Consider frequent suctioning. No further intervention from GI standpoint. Recall GI if needed. History of Present Illness Reason for Consultation: ALS, increased secretions, hx esophageal dilation Requesting Physician: GOVIND Bourne Attending Physician: Sharla Wan MD History of Present Illness Ms. Elizabeth Quinn is a 76-year-old female patient of Devonte Sweeney DO with a history of HTN, GERD, history of DVT (not anticoagulated), who was diagnosed with rapidly progressing ALS in August 2021. GI had attempted to place a PEG, saw a benign-appearing, intrinsic moderate stenosis at the cricopharyngeus, which was easily dilated to 42 Mongolian. Unfortunately PEG tube was not endoscopically placed because there is no area of trans illumination (thus no appropriate side could be identified for safe endoscopic placement. PEG tube was then placed by IR. Patient presented to the ED yesterday with increasing secretions. She reports that PEG tube feedings are going well. She self suctions pharyngeal secretions. She has seen palliative and is on Robinul, hydroxyzine, hyoscyamine and a PPI. Allergies Allergy/AdvReac Type Severity Reaction Status Date / Time Iodinated Contrast Media Allergy Severe dyspnea Verified 07/18/21 13:20 azithromycin Allergy Intermediate rash Verified 07/18/21 13:20 cefaclor Allergy Intermediate hives Verified 07/18/21 16:09 erythromycin base Allergy Intermediate hives Verified 07/18/21 16:09 levalbuterol Allergy Intermediate chest pain Verified 07/18/21 13:20 minocycline Allergy Intermediate rash Verified 07/18/21 13:20 nitrofurantoin Allergy Intermediate possible Verified 07/18/21 16:09 hives or dyspnea phenazopyridine Allergy Intermediate dyspnea Verified 07/18/21 16:09 Sulfa (Sulfonamide Allergy Intermediate hives Verified 07/18/21 16:09 Antibiotics) metronidazole AdvReac Intermediate GI symptoms Verified 07/18/21 13:20 morphine AdvReac Intermediate vomiting Verified 07/18/21 13:20 levofloxacin AdvReac Mild abdominal Verified 07/18/21 16:09 pain Home Medications Medication Instructions Recorded Confirmed Type lansoprazole 30 mg delayed 30 mg FEEDING TUBE QAM 07/08/19 11/22/21 History release,disintegrating tablet lorazepam 0.5 mg tablet 0.5 mg PO HS PRN 07/08/19 11/22/21 History losartan 50 mg tablet 100 mg FEEDING TUBE QAM 07/08/19 11/22/21 History lidocaine 5 % topical patch 1 patch TOPICAL DAILY 07/22/21 11/22/21 History scopolamine base 1 mg over 3 days 1 patch TRANSDERMAL Q3D PRN #4 ea 10/30/21 11/22/21 Rx transdermal patch glycopyrrolate 2 mg tablet 2 mg PO TID PRN 11/22/21 11/22/21 History guaifenesin 400 mg tablet 400 mg PO DAILY 11/22/21 11/22/21 History hydroxyzine HCl 25 mg tablet 25 mg FEEDING TUBE Q6 PRN 11/22/21 11/22/21 History ipratropium 0.5 mg-albuterol 3 mg 3 ml INHALATION TID PRN 11/22/21 11/22/21 History (2.5 mg base)/3 mL nebulization soln levothyroxine 112 mcg tablet 112 mcg FEEDING TUBE DAILYBB 11/22/21 11/22/21 History ondansetron HCl 4 mg/5 mL oral 4 mg PO UD PRN 11/22/21 11/22/21 History solution oxycodone 5 mg tablet 5 mg FEEDING TUBE Q6H PRN 11/22/21 11/22/21 History riluzole 50 mg tablet 50 mg PO BID 11/22/21 11/22/21 History Patient History Medical History ALS (amyotrophic lateral sclerosis) Cancer left breast (2015) s/p left lumpectomy/XRT, no chemo Cervical stenosis of spinal canal GERD (gastroesophageal reflux disease) controlled, stable. Patient sleeps elevated HS. 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) "Abnormal left breast mammogram Status post stereotactic biopsy 11/14/2015 revealing DCIS grade 1 Estrogen receptor positive and progesterone receptor positive Status post needle localization lumpectomy 12/20/2015 Stage pTis pNX Status post completion of radiation therapy 03/01/2016 received 3850 cGy utilizing accelerated partial breast irradiation." On 03/14/16 11:36 Ese Cabrera wrote "Abnormal left breast mammogram Status post stereotactic biopsy 11/14/2015 revealing DCIS grade 1 Estrogen receptor positive and progesterone receptor positive Status post needle localization lumpectomy 12/20/2015 Stage pTis pNX Status post completion of radiation therapy 03/01/2016 received 3850 cGy utilizing accelerated partial breast irradiation." On 02/01/16 11:23 Ese Cabrera wrote "Abnormal left breast mammogram Status post stereotactic biopsy 11/14/2015 revealing DCIS grade 1 Estrogen receptor positive and progesterone receptor positive Status post needle localization lumpectomy 12/20/2015 Stage pTis pNX" Osteoarthritis Surgical History H/O foot surgery R ORIF History of appendectomy History of carpal tunnel release R/L History of colectomy D/T DIVERTICULITIS History of colonoscopy MULTIPLE History of D&C D&C, hysteroscopy: 10/24/17: LMA# 4 at [facility] History of esophagogastroduodenoscopy (EGD) History of lumpectomy of left breast 2015 History of tonsillectomy S/P percutaneous endoscopic gastrostomy (PEG) tube placement Family History Mother Breast cancer Social History Smoking Status: Former smoker Tobacco Type: Cigarettes Second Hand Exposure: No; Do You Dip or Chew Tobacco: No; Tobacco Cessation Education Requested by Patient: No Hx Alcohol Use: No Hx Substance Use: No Preferred Language: Senegalese Communication Ability: Effective Concierge Required: No Beliefs That Will Affect Care: None marital status: Current Living Situation: Spouse Other Information That Helps Us Care for You: No Feels Safe at Home: Yes Safety Concerns: Feels Safe At This Time Assistive Devices: Oxygen - Continuous Review of Systems Review of Systems: ROS: Gen: + Severe weakness. No fevers. Eyes: No eye redness, or pain, no recent vision changes Resp:+ secretions; Some SOB, + gagging/cough Cardio: No palpitations/irregular beats, no chest pain GI: No abdominal pain, no nausea/vomiting : Denies pain on urination Skin: No jaundice, itching or new rashes Physical Exam Constitutional: well developed, + ill appearing, + thin and cooperative Eyes: PERRL, conjunctivae normal, anicteric sclerae ENMT: external ear and nose normal, oropharynx normal Neck: trachea midline, no thyromegaly Respiratory: normal respiratory effort, lungs clear to auscultation (But diminished at the bases, wearing O2 at 1 L/min; no cough.) Cardiovascular: RRR, no murmur, no edema Gastrointestinal (Abdomen): normal bowel sounds, soft, nontender, no hepatosplenomegaly Inspection/Auscultation: abdomen normal to inspection (W ith PEG tube in epigastric; no redness/draining/leaking) and normal bowel sounds; abdomen not distended Percussion/Palpation: + abdomen tender (Mild diffuse adbdominal msk tenderness. No signs of acute abdomen.) and abdomen soft; no guarding and abdomen not rigid Skin: no rashes, warm and dry Neurologic: PERRL, EOMI, accommodation nl, no face palsy, no dysarthria awake; not confused Psychiatric: A+Ox3, euthymic affect Lymphatic: no cervical or axillary lymphadenopathy Results & Data ([facility]) Vital Signs (Past 12 Hours) Vital Signs Temp Pulse Resp BP Pulse Ox 11/23/21 07:23 36.6 C 64 16 127/71 95 Laboratory Results WBC 7, Hb 13, HCT 41, PLT S2 94, NA 136, K4.2, CL 101, CO2 29, BUN 27, CR 0.69 Diagnostic Findings CXR 11/22/21: No acute cardiopulmonary disease. There is again a decreased inspiratory effort.
[2021-11-23] MEDS ORDERED: bisacodyL 10 MG SUPP PR STA (12:42)
--- NOTE | 2021-11-23 13:29 | Electrocardiogram Report ---
Test Reason : Blood Pressure : / mmHG Vent. Rate : 074 BPM Atrial Rate : 074 BPM P-R Int : 150 ms QRS Dur : 088 ms QT Int : 386 ms P-R-T Axes : 012 -34 -17 degrees QTc Int : 428 ms Poor data quality, interpretation may be adversely affected Normal sinus rhythm Left axis deviation Minimal voltage criteria for LVH, may be normal variant Poor R wave progression, consider anterior AL vs. lead placement vs. LVH Incomplete right bundle branch block Abnormal ECG When compared with ECG of 30-OCT-2021 14:56, No significant change was found Confirmed by Kieran Freeman ([id number]) on 11/23/2021 1:29:10 PM Referred By: REFERRED SELF Confirmed By:Omer Fremean
[2021-11-23] MEDS ORDERED: HYDROCORTISONE 1% CRM 30 GM TUBE EXT PRN (17:25)
--- NOTE | 2021-11-23 19:27 | Hospitalist Progress Note ---
Date of Service November 23, 2021 Assessment & Plan (1) Hypoxia: Plan: will need home O2 assessment prior to discharge (2) Excessive oral secretions: Plan: Will need home hospital bed to be set up (reportedly this will be by Friday) (3) ALS (amyotrophic lateral sclerosis): Plan: Rapidly progressing Supportive care Patient needs home DME to be arranged before she can return home (4) Unilateral edema of lower extremity: Plan: LLE edema noted, patient reports is chronic LLE venous Doppler 09/06/2021 negative for DVT Patient denies pain and worsening swelling (5) HTN (hypertension): Plan: BP controlled, continue losartan (6) Hypothyroidism: Plan: Continue levothyroxine (7) DVT prophylaxis: Plan: d/c SQ heparin, start SQ lovenox Dispo - Pending home DME set up, Friday is ETA Admission and Anticipated Discharge Date Admission Date: November 23, 2021 Subjective Earlier patient with constipation, received miralax then suppository now with diarrhea Family with questions regarding her tube feeds, turning/positioning/nursing care Physical Exam Physical Exam: Appears thin, cachetic, chronically ill appearing Respiratory: diminished breath sounds at bases and diminished respiratory effort, no wheezing/rhonchi noted Cardiovascular: regular rate and rhythm, no murmurs/rubs/gallops Gastrointestinal (Abdomen): soft, non tender Neurologic: awake, speaks in soft voice, bed bound state Results & Data Results & Data ([facility]) Vital Signs (Past 12 Hours) Vital Signs Temp Pulse Resp BP Pulse Ox 11/23/21 17:55 36.5 C 72 14 115/66 93 11/23/21 13:53 76 16 119/70 93 Laboratory Results Short CBC 11/23/21 Range/Units 06:24 WBC 7.04 (4.8-10.8) K/uL Hgb 13.6 (12.0-16.0) g/dL Hct 41.8 (37-47) % Plt Count 294 (130-400) K/uL BMP 11/23/21 06:24 Sodium 136 Potassium 4.2 Chloride 101 Carbon Dioxide 29 BUN 27 H Creatinine 0.69 Glucose 111 H Calcium 9.7 Medications Administered Current Inpatient Medications Acetaminophen (Acetaminophen 325 Mg Tab) 650 mg PEG Q4H PRN PRN Reason: pain/fever Stop: 12/22/21 21:04 Enteral Nutritional Formula (Peptamen 1.5 Kavon 1,000 Ml Bag) 1,000 ml PEG UD DAIJA; Protocol Stop: 12/22/21 18:14 Last Admin: 11/22/21 22:12 Dose: 1,000 ml Documented by: Glycopyrrolate (Glycopyrrolate 1 Mg Tab) 2 mg PO TID PRN PRN Reason: Secretions Stop: 12/22/21 21:04 Last Admin: 11/23/21 00:28 Dose: 2 mg Documented by: Guaifenesin (Guaifenesin 200 Mg Tab) 400 mg PEG DAILY DAIJA Stop: 12/23/21 08:59 Last Admin: 11/23/21 08:23 Dose: 400 mg Documented by: Heparin Sodium (Porcine) (Heparin Sod 5,000 Unit/0.5 Ml Vial) 5,000 units SQ Q12 DAIJA Stop: 12/22/21 21:29 Last Admin: 11/23/21 08:25 Dose: 5,000 units Documented by: Hydrocortisone (Hydrocortisone 1% Crm 30 Gm Tube) 1 appln EXT TID PRN PRN Reason: hemorrhoid Stop: 12/23/21 17:24 Last Admin: 11/23/21 18:40 Dose: 1 appln Documented by: Hydroxyzine HCl (Hydroxyzine Hcl 25 Mg Tab) 25 mg PEG Q6 PRN PRN Reason: Anxiety Stop: 12/22/21 21:04 Last Admin: 11/23/21 12:05 Dose: 25 mg Documented by: Hyoscyamine (Hyoscyamine Sulfate 0.125 Mg Tab) 0.125 mg SL Q4H PRN PRN Reason: Secretions or Pulm Congestion Stop: 12/23/21 03:27 Last Admin: 11/23/21 04:42 Dose: 0.125 mg Documented by: Lansoprazole (Lansoprazole 30 Mg Soltab) 30 mg PEG QAM DAIJA Stop: 12/23/21 08:59 Last Admin: 11/23/21 08:29 Dose: 30 mg Documented by: Levothyroxine Sodium (Levothyroxine Sodium 112 Mcg Tablet) 112 mcg PEG DAILYBB [facility] Stop: 12/23/21 06:29 Last Admin: 11/23/21 05:40 Dose: 112 mcg Documented by: Lorazepam (Lorazepam 0.5 Mg Tab) 0.5 mg PO HS PRN PRN Reason: Anxiety Stop: 12/22/21 21:04 Last Admin: 11/23/21 00:40 Dose: 0.5 mg Documented by: Losartan Potassium (Losartan Potassium 50 Mg Tab) 100 mg PEG QAM DAIJA Stop: 12/23/21 08:59 Last Admin: 11/23/21 08:23 Dose: 100 mg Documented by: Miscellaneous (Remove Transderm-Scop Patch) 1 ea N/A Q72H PRN PRN Reason: SECRETIONS Stop: 12/22/21 21:14 Miscellaneous (Check Scopolamine Patch Placement) 1 ea N/A QS DAIJA Stop: 12/23/21 00:00 Last Admin: 11/23/21 17:13 Dose: 1 ea Documented by: Non-Formulary Patient's Own Med: Riluzole 50mg Tablet 1 ea PO BID DAIJA Stop: 12/23/21 08:59 Last Admin: 11/23/21 08:24 Dose: 1 mg Documented by: Oxycodone HCl (Oxycodone Hcl Ir 5 Mg Tab (Immediate Release)) 5 mg PEG Q6H PRN PRN Reason: pain, severe Stop: 12/06/21 21:04 Polyethylene Glycol (Polyethylene (Miralax) 17 Gm Pack) 17 gm PO DAILY DAIJA Stop: 12/23/21 09:59 Last Admin: 11/23/21 10:39 Dose: 17 gm Documented by: Scopolamine (Scopolamine 1 Mg Tdsy) 1 mg TD Q3D PRN PRN Reason: secretions Stop: 12/22/21 21:04 Sterile Water (Tube Feeding Water Flush) 150 ml GT Q4H DAIJA Stop: 12/22/21 18:14 Last Admin: 11/23/21 18:28 Dose: 150 ml Documented by:
[2021-11-23] MEDS: PEPTAMEN 1.5 CAL 1,000 ML BAG PEG SCH (22:04)
[2021-11-24] MEDS: CHECK SCOPOLAMINE PATCH PLACEMENT SCH ×3 (00:47→15:24)
[2021-11-24] MEDS: TUBE FEEDING WATER FLUSH GT SCH ×6 (03:41→22:18)
[2021-11-24] MEDS: LEVOTHYROXINE SODIUM 112 MCG TABLET PEG SCH (05:29)
[2021-11-24] MEDS: LOSARTAN POTASSIUM 50 MG TAB PEG SCH (08:44)
[2021-11-24] MEDS: HYOSCYAMINE SULFATE 0.125 MG TAB SL PRN ×2 (08:44→21:12)
[2021-11-24] MEDS: guaiFENesin 200 MG TAB PEG SCH (08:44)
[2021-11-24] MEDS: LANSOPRAZOLE 30 MG SOLTAB PEG SCH (08:44)
[2021-11-24] MEDS: ENOXAPARIN INJ 40 MG/0.4 ML SYR SQ SCH (08:44)
[2021-11-24] MEDS: RILUZOLE 50 MG PO SCH ×2 (08:45→20:44)
[2021-11-24] MEDS: GLYCOPYRROLATE 1 MG TAB PO PRN (13:27)
--- NOTE | 2021-11-24 13:27 | Hospitalist Progress Note ---
Date of Service November 24, 2021 Assessment & Plan (1) Hypoxia: Plan: will need home O2 assessment prior to discharge (2) Excessive oral secretions: Plan: Will need home hospital bed to be set up (reportedly this will be by Friday) (3) ALS (amyotrophic lateral sclerosis): Plan: Rapidly progressing Supportive care Patient needs home DME to be arranged before she can return home (4) Unilateral edema of lower extremity: Plan: LLE edema noted, patient reports is chronic LLE venous Doppler 09/06/2021 negative for DVT Patient denies pain and worsening swelling (5) HTN (hypertension): Plan: BP controlled, continue losartan (6) Hypothyroidism: Plan: Continue levothyroxine (7) DVT prophylaxis: Plan: SQ lovenox Dispo - Pending home DME set up, Friday is ETA Admission and Anticipated Discharge Date Admission Date: November 23, 2021 Subjective Complaining of secretions, using suction near continuously but canister appears empty Physical Exam Physical Exam: thin, cachetic, appears chronically ill Respiratory: breathing comfortably on room air, no wheezing/rhonchi/rales Cardiovascular: regular rate and rhythm, no murmurs/rubs/gallops Gastrointestinal (Abdomen): soft, non tender Musculoskeletal: No edema Neurologic: bedbound at baseline, advanced ALS Results & Data Results & Data ([facility]) Vital Signs (Past 12 Hours) Vital Signs Temp Pulse Resp BP Pulse Ox 11/24/21 07:45 36.6 C 73 18 103/63 93 Medications Administered Current Inpatient Medications Acetaminophen (Acetaminophen 325 Mg Tab) 650 mg PEG Q4H PRN PRN Reason: pain/fever Stop: 12/22/21 21:04 Enoxaparin Sodium (Enoxaparin Inj 40 Mg/0.4 Ml Syr) 40 mg SQ QAM DAIJA Stop: 12/24/21 08:59 Last Admin: 11/24/21 08:44 Dose: 40 mg Documented by: Enteral Nutritional Formula (Peptamen 1.5 Kavon 1,000 Ml Bag) 1,000 ml PEG UD [facility]; Protocol Stop: 12/22/21 18:14 Last Admin: 11/23/21 22:04 Dose: 1,000 ml Documented by: Glycopyrrolate (Glycopyrrolate 1 Mg Tab) 2 mg PO TID PRN PRN Reason: Secretions Stop: 12/22/21 21:04 Last Admin: 11/24/21 13:27 Dose: 2 mg Documented by: Guaifenesin (Guaifenesin 200 Mg Tab) 400 mg PEG DAILY DAIJA Stop: 12/23/21 08:59 Last Admin: 11/24/21 08:44 Dose: 400 mg Documented by: Hydrocortisone (Hydrocortisone 1% Crm 30 Gm Tube) 1 appln EXT TID PRN PRN Reason: hemorrhoid Stop: 12/23/21 17:24 Last Admin: 11/23/21 18:40 Dose: 1 appln Documented by: Hydroxyzine HCl (Hydroxyzine Hcl 25 Mg Tab) 25 mg PEG Q6 PRN PRN Reason: Anxiety Stop: 12/22/21 21:04 Last Admin: 11/23/21 12:05 Dose: 25 mg Documented by: Hyoscyamine (Hyoscyamine Sulfate 0.125 Mg Tab) 0.125 mg SL Q4H PRN PRN Reason: Secretions or Pulm Congestion Stop: 12/23/21 03:27 Last Admin: 11/24/21 08:44 Dose: 0.125 mg Documented by: Lansoprazole (Lansoprazole 30 Mg Soltab) 30 mg PEG QAM DAIJA Stop: 12/23/21 08:59 Last Admin: 11/24/21 08:44 Dose: 30 mg Documented by: Levothyroxine Sodium (Levothyroxine Sodium 112 Mcg Tablet) 112 mcg PEG DAILYBB DAIJA Stop: 12/23/21 06:29 Last Admin: 11/24/21 05:29 Dose: 112 mcg Documented by: Lorazepam (Lorazepam 0.5 Mg Tab) 0.5 mg PO HS PRN PRN Reason: Anxiety Stop: 12/22/21 21:04 Last Admin: 11/23/21 20:44 Dose: 0.5 mg Documented by: Losartan Potassium (Losartan Potassium 50 Mg Tab) 100 mg PEG QAM DAIJA Stop: 12/23/21 08:59 Last Admin: 11/24/21 08:44 Dose: 100 mg Documented by: Miscellaneous (Remove Transderm-Scop Patch) 1 ea N/A Q72H PRN PRN Reason: SECRETIONS Stop: 12/22/21 21:14 Miscellaneous (Check Scopolamine Patch Placement) 1 ea N/A QS DAIJA Stop: 12/23/21 00:00 Last Admin: 11/24/21 08:43 Dose: 1 ea Documented by: Non-Formulary Patient's Own Med: Riluzole 50mg Tablet 1 ea PO BID [facility] Stop: 12/23/21 08:59 Last Admin: 11/24/21 08:45 Dose: 50 mg Documented by: Oxycodone HCl (Oxycodone Hcl Ir 5 Mg Tab (Immediate Release)) 5 mg PEG Q6H PRN PRN Reason: pain, severe Stop: 12/06/21 21:04 Polyethylene Glycol (Polyethylene (Miralax) 17 Gm Pack) 17 gm PO DAILY [facility] Stop: 12/23/21 09:59 Last Admin: 11/23/21 10:39 Dose: 17 gm Documented by: Scopolamine (Scopolamine 1 Mg Tdsy) 1 mg TD Q3D PRN PRN Reason: secretions Stop: 12/22/21 21:04 Last Admin: 11/24/21 10:51 Dose: 1 mg Documented by: Sterile Water (Tube Feeding Water Flush) 150 ml GT Q4H DAIJA Stop: 12/22/21 18:14 Last Admin: 11/24/21 13:27 Dose: 150 ml Documented by:
[2021-11-24] MEDS: LORazepam 0.5 MG TAB PO PRN (21:13)
[2021-11-24] MEDS: PEPTAMEN 1.5 CAL 1,000 ML BAG PEG SCH (21:13)
[2021-11-25] MEDS: CHECK SCOPOLAMINE PATCH PLACEMENT SCH ×3 (00:18→15:41)
[2021-11-25] MEDS: TUBE FEEDING WATER FLUSH GT SCH ×6 (02:15→22:15)
[2021-11-25] MEDS: HYOSCYAMINE SULFATE 0.125 MG TAB SL PRN ×2 (02:49→07:11)
[2021-11-25] MEDS: LEVOTHYROXINE SODIUM 112 MCG TABLET PEG SCH (05:58)
[2021-11-25] MEDS: guaiFENesin 200 MG TAB PEG SCH (07:11)
[2021-11-25] MEDS: POLYETHYLENE (MIRALAX) 17 GM PACK PO SCH (07:11)
[2021-11-25] MEDS: LOSARTAN POTASSIUM 50 MG TAB PEG SCH (07:11)
[2021-11-25] MEDS: ENOXAPARIN INJ 40 MG/0.4 ML SYR SQ SCH (07:11)
[2021-11-25] MEDS: LANSOPRAZOLE 30 MG SOLTAB PEG SCH (07:11)
[2021-11-25] MEDS: RILUZOLE 50 MG PO SCH ×2 (07:12→21:45)
--- NOTE | 2021-11-25 15:19 | Hospitalist Progress Note ---
Date of Service November 25, 2021 Assessment & Plan (1) Hypoxia: Plan: Now weaned to room air. 94% on RA Uncertain if she truly needed oxygen previously. No documentation of hypoxia noted (2) Excessive oral secretions: Plan: Will need home hospital bed and suction to be set up (reportedly this will be by Friday) (3) ALS (amyotrophic lateral sclerosis): Plan: Rapidly progressing Supportive care Patient needs home DME to be arranged before she can return home (4) Unilateral edema of lower extremity: Plan: LLE edema noted, patient reports is chronic LLE venous Doppler 09/06/2021 negative for DVT Patient denies pain and worsening swelling (5) HTN (hypertension): Plan: BP controlled, continue losartan (6) Hypothyroidism: Plan: Continue levothyroxine (7) DVT prophylaxis: Plan: SQ lovenox Plan: Dispo - Pending home DME set up, Friday is ETA Admission and Anticipated Discharge Date Admission Date: November 23, 2021 Subjective No new complaints Physical Exam Physical Exam: Appears thin, chronically ill, no acute distress Respiratory: Breathing comfortably on room air, no wheezing, inspiratory ef fort is reduced Cardiovascular: regular rate and rhythm, no murmurs/rubs/galloops Gastrointestinal (Abdomen): soft, non tender Musculoskeletal: peripheral muscle wasting, no edema Neurologic: baseline advanced ALS, bedbound state, dysphagia Results & Data Results & Data ([facility]) Vital Signs (Past 12 Hours) Vital Signs Temp Pulse Resp BP Pulse Ox 11/25/21 07:07 35.8 C L 74 16 147/86 H 94 Medications Administered Current Inpatient Medications Acetaminophen (Acetaminophen 325 Mg Tab) 650 mg PEG Q4H PRN PRN Reason: pain/fever Stop: 12/22/21 21:04 Enoxaparin Sodium (Enoxaparin Inj 40 Mg/0.4 Ml Syr) 40 mg SQ QAM DAIJA Stop: 12/24/21 08:59 Last Admin: 11/25/21 07:11 Dose: 40 mg Documented by: Enteral Nutritional Formula (Peptamen 1.5 Kavon 1,000 Ml Bag) 1,000 ml PEG UD [facility]; Protocol Stop: 12/22/21 18:14 Last Admin: 11/24/21 21:13 Dose: 1,000 ml Documented by: Glycopyrrolate (Glycopyrrolate 1 Mg Tab) 2 mg PO TID PRN PRN Reason: Secretions Stop: 12/22/21 21:04 Last Admin: 11/24/21 13:27 Dose: 2 mg Documented by: Guaifenesin (Guaifenesin 200 Mg Tab) 400 mg PEG DAILY [facility]IJA Stop: 12/23/21 08:59 Last Admin: 11/25/21 07:11 Dose: 400 mg Documented by: Hydrocortisone (Hydrocortisone 1% Crm 30 Gm Tube) 1 appln EXT TID PRN PRN Reason: hemorrhoid Stop: 12/23/21 17:24 Last Admin: 11/23/21 18:40 Dose: 1 appln Documented by: Hydroxyzine HCl (Hydroxyzine Hcl 25 Mg Tab) 25 mg PEG Q6 PRN PRN Reason: Anxiety Stop: 12/22/21 21:04 Last Admin: 11/23/21 12:05 Dose: 25 mg Documented by: Hyoscyamine (Hyoscyamine Sulfate 0.125 Mg Tab) 0.125 mg SL Q4H PRN PRN Reason: Secretions or Pulm Congestion Stop: 12/23/21 03:27 Last Admin: 11/25/21 07:11 Dose: 0.125 mg Documented by: Lansoprazole (Lansoprazole 30 Mg Soltab) 30 mg PEG QAM [facility]IJA Stop: 12/23/21 08:59 Last Admin: 11/25/21 07:11 Dose: 30 mg Documented by: Levothyroxine Sodium (Levothyroxine Sodium 112 Mcg Tablet) 112 mcg PEG DAILYBB [facility] Stop: 12/23/21 06:29 Last Admin: 11/25/21 05:58 Dose: 112 mcg Documented by: Lorazepam (Lorazepam 0.5 Mg Tab) 0.5 mg PO HS PRN PRN Reason: Anxiety Stop: 12/22/21 21:04 Last Admin: 11/24/21 21:13 Dose: 0.5 mg Documented by: Losartan Potassium (Losartan Potassium 50 Mg Tab) 100 mg PEG QAM DAIJA Stop: 12/23/21 08:59 Last Admin: 11/25/21 07:11 Dose: 100 mg Documented by: Miscellaneous (Remove Transderm-Scop Patch) 1 ea N/A Q72H PRN PRN Reason: SECRETIONS Stop: 12/22/21 21:14 Miscellaneous (Check Scopolamine Patch Placement) 1 ea N/A QS [facility] Stop: 12/23/21 00:00 Last Admin: 11/25/21 07:06 Dose: 1 ea Documented by: Non-Formulary Patient's Own Med: Riluzole 50mg Tablet 1 ea PO BID [facility] Stop: 12/23/21 08:59 Last Admin: 11/25/21 07:12 Dose: 2 mg Documented by: Oxycodone HCl (Oxycodone Hcl Ir 5 Mg Tab (Immediate Release)) 5 mg PEG Q6H PRN PRN Reason: pain, severe Stop: 12/06/21 21:04 Polyethylene Glycol (Polyethylene (Miralax) 17 Gm Pack) 17 gm PO DAILY [facility] Stop: 12/23/21 09:59 Last Admin: 11/25/21 07:11 Dose: 17 gm Documented by: Scopolamine (Scopolamine 1 Mg Tdsy) 1 mg TD Q3D PRN PRN Reason: secretions Stop: 12/22/21 21:04 Last Admin: 11/24/21 10:51 Dose: 1 mg Documented by: Sterile Water (Tube Feeding Water Flush) 150 ml GT Q4H [facility]A Stop: 12/22/21 18:14 Last Admin: 11/25/21 14:41 Dose: 150 ml Documented by:
[2021-11-25] MEDS: LORazepam 0.5 MG TAB PO PRN (21:21)
[2021-11-25] MEDS: PEPTAMEN 1.5 CAL 1,000 ML BAG PEG SCH (21:23)
[2021-11-26] MEDS: CHECK SCOPOLAMINE PATCH PLACEMENT SCH ×3 (00:05→16:40)
[2021-11-26] MEDS: TUBE FEEDING WATER FLUSH GT SCH ×4 (02:20→15:09)
[2021-11-26] MEDS: LEVOTHYROXINE SODIUM 112 MCG TABLET PEG SCH (06:02)
[2021-11-26] MEDS: ENOXAPARIN INJ 40 MG/0.4 ML SYR SQ SCH (08:29)
[2021-11-26] MEDS: LANSOPRAZOLE 30 MG SOLTAB PEG SCH (08:30)
[2021-11-26] MEDS: LOSARTAN POTASSIUM 50 MG TAB PEG SCH (08:30)
[2021-11-26] MEDS: POLYETHYLENE (MIRALAX) 17 GM PACK PO SCH (08:30)
[2021-11-26] MEDS: guaiFENesin 200 MG TAB PEG SCH (08:31)
[2021-11-26] MEDS: RILUZOLE 50 MG PO SCH (08:31)
--- NOTE | 2021-11-26 10:14 | Discharge Summary ---
Date of Service November 26, 2021 Admission HPI Per Admitting Provider 76-year-old female with PMH ALS s/p PEG tube, hypothyroidism, chronic interstitial lung disease, HTN, GERD, history of DVT s/p anticoagulation treatment, and other problems listed below who presents the ED for evaluation of increased oral secretions. Patient diagnosed with ALS August 2021 and has had rapidly progressing disease. Patient is mostly paralyzed on her left side and is bedbound. Had PEG tube placed last week, currently receiving tube feedings. Prior to PEG tube placement, patient had EGD with esophageal dilation. Patient has struggled with oral secretions since her diagnosis. She notes a brief improvement after esophageal dilation however increased secretions returned quickly. Patient notes a choking sensation and feeling short of breath at times. She has a very weak cough reflex. No chest pain. Denies lightheadedness, dizziness, diaphoresis, syncopal events. Increase tube feedings to 4 times a day yesterday however did not tolerate and reduce back to 3 times a day. Denies abdominal pain, vomiting, diarrhea. No fevers or chills. Reports urinary frequency however attributes this to starting tube feedings and free water flushes. In the ED, patient was mildly hypoxic on room air at 89%, she is currently saturating well on 2 L of oxygen via nasal cannula. Labs are unremarkable, CXR shows no signs of pneumonia. Principal Diagnosis Advanced ALS Increased Oral secretions Severe protein malnutrition Acute cystitis without hematuria Discharge Exam Patient is thin, cachetic, appears chronically ill. No acute distress Discharge Data Allergies Allergy/AdvReac Type Severity Reaction Status Date / Time Iodinated Contrast Media Allergy Severe dyspnea Verified 07/18/21 13:20 azithromycin Allergy Intermediate rash Verified 07/18/21 13:20 cefaclor Allergy Intermediate hives Verified 07/18/21 16:09 erythromycin base Allergy Intermediate hives Verified 07/18/21 16:09 levalbuterol Allergy Intermediate chest pain Verified 07/18/21 13:20 minocycline Allergy Intermediate rash Verified 07/18/21 13:20 nitrofurantoin Allergy Intermediate possible Verified 07/18/21 16:09 hives or dyspnea phenazopyridine Allergy Intermediate dyspnea Verified 07/18/21 16:09 Sulfa (Sulfonamide Allergy Intermediate hives Verified 07/18/21 16:09 Antibiotics) metronidazole AdvReac Intermediate GI symptoms Verified 07/18/21 13:20 morphine AdvReac Intermediate vomiting Verified 07/18/21 13:20 levofloxacin AdvReac Mild abdominal Verified 07/18/21 16:09 pain Consultations 11/22/21 18:12 Consult Gastroenterology Routine Hospital Course Mrs Elizabeth Quinn is a 76 year old female with recently diagnosed ALS with rapidly progressive symptoms now essentially bed bound, with dysphagia with recently placed PEG tube for severe malnutrition, also with moderate cricopharyngeal stenosis status post dilation was admitted 11/22 due to having difficulty managing her oral secretions at home and not having home medical equipment set up causing family difficulties caring for her. She was noted to have severe malnutrition related to poor oral intake due to inability to swallow. She was seen by RD here and her tube feeds were continued but free water flushes were increased to help with constipation and hydration. Case management was contacted to facilitate home medical equipment (hospital bed, idalia lift and suction) to be delivered. It is being delivered 11/26 morning and she will return home later in the afternoon. Of note, she was placed on oxygen in the ER, no documentation of hypoxia was noted and she was subsequently weaned off oxygen prior to discharge. Also, she was noted to be constipated and received laxative and suppository here with relieve of her constipation. Also, requesting her tube feeds be switched to continuous (rather than bolus) and message was sent to her PCP's office to help facilitate since this will require additional equipment to be arranged. On the day of discharge, Elizabeth was complaining of burning with urination (no fever/chills/sepsis). Her UA obtained via straight cath suggests UTI. She has multiple antibiotic allergies but reports that she can take penicillin. She will go home on Augmentin 500mg/125mg BID x 3 days and follow up with her PCP for urine culture results which should be available in 48-72 hours. Home Health Attestation I certify that this patient is under my care and that I, or a physicians office services assistant working with me, had a face to-face encounter that meets the home health [id number] encounter requirements with this patient. The encounter with the patient was in whole, or in part, for the following medical condition, which is the primary reason for home health care (list medical condition): ALS I certify that, based on my findings, the following services are medically necessary home health services: My clinical findings support the need for the above services because: OT Assess ADL Status and Restore Function w ADLs PT Assessment for Endurance / Balance / Strength PT Eval for Safety and Mobility PT Eval for Safety, Gait Training, Assistive Devices PT Gait and Balance Training, Strengthening and Safety Skilled Nsg Assessment Further, I certify that my clinical findings support that this patient is homebound (i.e. absences from home require considerable and taxing effort and are for medical reasons or gnosticist services or infrequently or of short duration when for other reasons) because: Maximum Assistance with All Activities Certification for Home Health Services: Based on the above findings, I certify that this patient is confined to the home and needs intermittent intermediate care, physical therapy and/or speech therapy or continues to need occupational therapy. The patient is under my care, and I have initiated the establishment of the plan of care. This patient will be followed by a physician who will periodically review the plan of care. Total Time Total Time Spent Total Time Spent (In Minutes): 40 Discharge Plan Discharge Items Patient Disposition: Home - Home Health Services Reason For Visit: ALS Discharge Diagnosis: Advanced ALS Increased Oral secretions Severe protein malnutrition Condition on Discharge: Fair Health Concerns: Family wants to switch her to continuous tube feeds (from bolus) for ease of administration, Please coordinate through PCP's office with home infusion company to arrange for proper equipment Activity: Resume your previous activity Non-emergency contact: Primary Care Provider Call non-emergency contact if: you have any medication questions and your symptoms worsen Follow-up/Referrals: Amina Wells MD [Outside Practitioners] - 11/27/21 3:30 pm (Date & Time 11/27/2021 3:30 PM Provider Amina Wells MD Department Palliative Medicine, [facility] ) Devonte Sweeney DO [Primary Care Provider] - 11/29/21 10:20 am (Date & Time 11/29/2021 10:20 AM Provider Devonte Sweeney DO Department Family Practice [facility] ) Diet: Nothing by Mouth Diet Comment: Tube feed--see below Addtl Attending Provider Instructions: Home Tube Feed Instructions: 360mL Peptamen 1.5 three times a day 150mL water flush before and after each Feeding bolus 150mL water flush before bedtime Monitor for signs of dehydration (cracked, dry lips, sunken eyes, dark urine) and give additional water flushes as needed Please follow up with your Primary Care Physician to switch to continuous tube feeds which may require additional equipment to be ordered You were reporting burning with urination on day of discharge. Urinalysis looks like you may have a UTI. You will go home on 3 days of Augmentin. Please follow up with your PCP for urine culture results. Pending Studies at Discharge: Yes Studies:: Urine culture Stand-Alone Forms: My [facility], Smoking Cessation Medications and DC Order Prescriptions: New polyethylene glycol 3350 [Miralax] 17 gram Powder In Packet 17 g PO DAILY PRN (Reason: constipation) 30 Days Qty: 30 RF: 0 amoxicillin-pot clavulanate 250-62.5 mg/5 mL suspension for reconstitution 10 ml feeding tube BID 3 Days Qty: 60 RF: 0 Continued losartan 50 mg tablet 100 mg feeding tube QAM RF: 0 lorazepam 0.5 mg tablet 0.5 mg PO HS PRN (Reason: Anxiety) RF: 0 lansoprazole 30 mg tablet,disintegrat, delay rel 30 mg feeding tube QAM RF: 0 ondansetron HCl 4 mg/5 mL solution 4 mg PO UD PRN (Reason: Nausea And Vomiting) RF: 0 glycopyrrolate 2 mg tablet 2 mg PO TID PRN (Reason: Secretions) RF: 0 levothyroxine 112 mcg tablet 112 mcg feeding tube DAILYBB RF: 0 ipratropium-albuterol 0.5 mg-3 mg(2.5 mg base)/3 mL solution for nebulization 3 ml INHALATION TID PRN (Reason: Shortness Of Breath Or Wheezing) RF: 0 hydroxyzine HCl 25 mg tablet 25 mg feeding tube Q6 PRN (Reason: Anxiety) RF: 0 riluzole 50 mg tablet 50 mg PO BID RF: 0 guaifenesin 400 mg Tablet 400 mg PO DAILY RF: 0 oxycodone 5 mg tablet 5 mg feeding tube Q6H PRN (Reason: pain, severe) RF: 0 lidocaine 5 % Adhesive Patch,Medicated 1 patch TOPICAL DAILY RF: 0 scopolamine base 1 mg over 3 days patch 3 day 1 patch transdermal Q3D PRN (Reason: secretions) Qty: 4 RF: 0 Discharge Orders: Discharge Order (Routine); Ordered 11/26/21 Ordered By: Sharla Wan Admission Data Admit Date/Time: 11/23/21 16:41 Attending Provider: Sharla Wan Admit Provider: Marianna Douglass Primary Care Provider: Devonte Sweeney Other Providers: Tevin Calix ; Julianne Ivey ; Shar Rivera ; Beth Denis ; Darius Franco ; Kaitlyn Chung ; Cayla Cat ; Augusto Fraga ; iDxie Melgar ; Candida Cisneros ; Sanaz Sharp ; Lalya Ace ; Keisha Morgan ; Marianna Douglass ; [place],[facility]
[2021-11-26 11:00] LABS: Appearance Urine Clear (Clear); Bacteria Urine Automated 2+ (Negative); Bilirubin Urine Negative (Negative); Blood Urine Negative (Negative); Cast Urine Automated 0 /lpf (0-5); Color Urine Yellow; Epithelial Cell Urine Auto 0-5 /lpf (0-5); Glucose Urine UA Negative (Negative); Ketones Urine Negative (Negative); Leukocyte Esterase Urine 1+ (Negative); Nitrite Urine Negative (Negative); Protein Urine Negative (Negative); RBC Urine Automated 0-4 /hpf (0-4); Specific Gravity Urine 1.011 (1.000-1.030); Urobilinogen Urine Negative (Negative)
[2021-11-26] MEDS ORDERED: ondansetron HCL 6 MG in DEXTROSE 5% 50 ML IV ONE (13:30)
== END 2021-11-26 17:23 | disposition home health service (06) | DRG 56 ==
LOC: 3N 13:51 → ED 13:51 → SUATTDRO 17:13 → 3N 21:09

== ENCOUNTER 2021-12-16 12:14 | Inpatient (IN) ==
--- NOTE | 2021-12-16 12:42 | Emergency Department Note ---
History of Present Illness General Chief complaint: Shortness of Breath/Dyspnea Stated complaint: SOB Time Seen by Provider: 12/16/21 12:28 Source: patient History of Present Illness Patient with a history of ALS, has multiple secretions at times and cannot handle her secretions. Patient states ongoing issues slight cough with increased secretions in the past day. EMS was called due to increased secretions mild shortness of breath. Reportedly family is having a difficult time managing her secretions and the patient at home. Patient has no other complaints at this time Home Medications Medication Instructions Recorded Confirmed Type lansoprazole 30 mg delayed 30 mg FEEDING TUBE QAM 07/08/19 11/29/21 History release,disintegrating tablet lorazepam 0.5 mg tablet 0.5 mg PO HS PRN 07/08/19 11/29/21 History losartan 50 mg tablet 100 mg FEEDING TUBE QAM 07/08/19 11/29/21 History lidocaine 5 % topical patch 1 patch TOPICAL DAILY 07/22/21 11/29/21 History scopolamine base 1 mg over 3 days 1 patch TRANSDERMAL Q3D PRN #4 ea 10/30/21 11/29/21 Rx transdermal patch glycopyrrolate 2 mg tablet 2 mg PO TID PRN 11/22/21 11/29/21 History guaifenesin 400 mg tablet 400 mg PO DAILY 11/22/21 11/29/21 History hydroxyzine HCl 25 mg tablet 25 mg FEEDING TUBE Q6 PRN 11/22/21 11/29/21 History ipratropium 0.5 mg-albuterol 3 mg 3 ml INHALATION TID PRN 11/22/21 11/29/21 History (2.5 mg base)/3 mL nebulization soln levothyroxine 112 mcg tablet 112 mcg FEEDING TUBE DAILYBB 11/22/21 11/29/21 History ondansetron HCl 4 mg/5 mL oral 4 mg FEEDING TUBE Q6H PRN 11/22/21 11/29/21 Histo ry solution oxycodone 5 mg tablet 5 mg FEEDING TUBE Q6H PRN 11/22/21 11/29/21 History riluzole 50 mg tablet 50 mg PO BID 11/22/21 11/29/21 History polyethylene glycol 3350 17 gram 17 g PO DAILY PRN 30 Days #30 ea 11/26/21 11/29/21 Rx oral powder packet (Miralax) amoxicillin 250 mg-potassium 10 ml FEEDING TUBE BID 11/29/21 11/29/21 History clavulanate 62.5 mg/5 mL oral suspension fluconazole 150 mg tablet 150 mg PO DAILY #1 tab 11/29/21 Rx hydrocodone 10 mg-acetaminophen 15 ml PO Q8H PRN #473 ml 11/29/21 Rx 300 mg/15 mL oral solution (Lortab Elixir) nitrofurantoin 100 mg FEEDING TUBE DAILY 11/29/21 11/29/21 History monohydrate/macrocrystals 100 mg capsule oxycodone 5 mg/5 mL oral solution 5 mg PO Q8H PRN #200 ml 11/29/21 Rx Allergies Allergy/AdvReac Type Severity Reaction Status Date / Time Iodinated Contrast Media Allergy Severe dyspnea Verified 11/29/21 08:45 azithromycin Allergy Intermediate rash Verified 11/29/21 08:45 cefaclor Allergy Intermediate hives Verified 11/29/21 08:45 erythromycin base Allergy Intermediate hives Verified 11/29/21 08:45 levalbuterol Allergy Intermediate chest pain Verified 11/29/21 08:45 minocycline Allergy Intermediate rash Verified 11/29/21 08:45 nitrofurantoin Allergy Intermediate possible Verified 11/29/21 08:45 hives or dyspnea phenazopyridine Allergy Intermediate dyspnea Verified 11/29/21 08:45 Sulfa (Sulfonamide Allergy Intermediate hives Verified 11/29/21 08:45 Antibiotics) metronidazole AdvReac Intermediate GI symptoms Verified 11/29/21 08:45 morphine AdvReac Intermediate vomiting Verified 11/29/21 08:45 levofloxacin AdvReac Mild abdominal Verified 11/29/21 08:45 pain Past Med/Surg History Medical History ALS (amyotrophic lateral sclerosis) Cancer left breast (2015) s/p left lumpectomy/XRT, no chemo Cervical stenosis of spinal canal GERD (gastroesophageal reflux disease) controlled, stable. Patient sleeps elevated HS. 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) "Abnormal left breast mammogram Status post stereotactic biopsy 11/14/2015 revealing DCIS grade 1 Estrogen receptor positive and progesterone receptor positive Status post needle localization lumpectomy 12/20/2015 Stage pTis pNX Status post completion of radiation therapy 03/01/2016 received 3850 cGy utilizing accelerated partial breast irradiation." On 03/14/16 11:36 Ese Cabrera wrote "Abnormal left breast mammogram Status post stereotactic biopsy 11/14/2015 revealing DCIS grade 1 Estrogen receptor positive and progesterone receptor positive Status post needle localization lumpectomy 12/20/2015 Stage pTis pNX Status post completion of radiation therapy 03/01/2016 received 3850 cGy utilizing accelerated partial breast irradiation." On 02/01/16 11:23 Ese Cabrera wrote "Abnormal left breast mammogram Status post stereotactic biopsy 11/14/2015 revealing DCIS grade 1 Estrogen receptor positive and progesterone receptor positive Status post needle localization lumpectomy 12/20/2015 Stage pTis pNX" Lab test negative for COVID-19 virus Osteoarthritis SOB (shortness of breath) Surgical History H/O foot surgery R ORIF History of appendectomy History of carpal tunnel release R/L History of colectomy D/T DIVERTICULITIS History of colonoscopy MULTIPLE History of D&C D&C, hysteroscopy: 10/24/17: LMA# 4 at [facility] History of esophagogastroduodenoscopy (EGD) History of lumpectomy of left breast 2015 History of tonsillectomy S/P percutaneous endoscopic gastrostomy (PEG) tube placement Family History Mother Breast cancer Social History Smoking Status: Never smoker Tobacco Type: Cigarettes Second Hand Exposure: No; Hx Alcohol Use: No Hx Substance Use: No Preferred Language: Montserratian Communication Ability: Effective Customer Sales Consultant Required: No Beliefs That Will Affect Care: None marital status: Current Living Situation: Spouse Feels Safe at Home: Yes Assistive Devices: Oxygen - Continuous Review of Systems A total of 10 systems reviewed and were otherwise negative Constitutional: + chills; no fever Respiratory: + chest congestion and + dyspnea Musculoskeletal: + limited range of motion, + muscle weakness and + muscle atrophy Neurologic: + localized weakness Physical Exam Vital Signs Vital Signs - 24 hr 12/16/21 12:23 12/16/21 12:37 Temperature 36.7 C 36.7 C Temperature Source Oral Oral Pulse Rate 89 Pulse Rate [Apical] 85 Pulse Rhythm [Apical] Regular Respiratory Rate 19 19 Respiratory Effort / Characteristics Non-Labored Respiratory Depth Normal Respiratory Pattern Regular Blood Pressure 139/97 Blood Pressure [Right Arm] 139/97 Blood Pressure Mean 111 Blood Pressure Mean [Right Arm] 111 Pulse Oximetry 93 93 Oxygen Delivery Method Room Air Room Air Oxygen Flow Rate 93 Sepsis Recent Fever Within 48 Hours No Sepsis New/Unexplained Change in Mental Status No Sepsis Action Taken by Nursing No Action Required VITAL SIGNS - Vital signs and nursing notes were reviewed. GENERAL -76-year-old female appearing her stated age who is in no acute distress. Communicates well with provider and answers questions appropriately. Currently using a Yankauer suction upon my arrival SKIN - Without rashes. HEAD - NC/AT. EYES - PERRL with EOMI bilaterally. Sclera anicteric. Palpebral conjunctiva pink and moist with no injection noted. EARS - No deformities of external structures noted on gross examination bilaterally. NOSE - Midline and without cyanosis. No epistaxis or purulent drainage noted. Septum midline without deviation or septal hematoma noted. MOUTH/OROPHARYNX - Without perioral cyanosis. Buccal mucosa pink and moist NECK - Neck with FROM. Supple to palpation. no lymphadenopathy noted. No nuchal rigidity. LUNGS - Chest wall symmetric without accessory muscle use, intercostals retractions, or central cyanosis. Normal vesicular breath sounds CTA B/L. No wheezes, rales, or rhonchi appreciated. CARDIAC - RRR with S1/S2. No murmur, rubs, or gallops appreciated. ABDOMEN - Abdominal contour soft without pulsations or visible masses. BS normoactive all four quadrants. No tenderness, palpable masses, h epatosplenomegaly, or ascites noted. Catheter is present EXTREMITIES - No clubbing or peripheral cyanosis. No pretibial edema present. +3/5 radial, posterior tibial, and dorsalis pedis pulses palpated throughout. +5/5 strength noted in UE/LE bilaterally. NEUROLOGIC - Cranial nerves II through XII grossly intact. Patient has obvious left hemiparesis left upper extremity and left lower extremity which is chronic; has dysarthric speech PSYCH - A&Ox3 and cooperates fully with examiner. Pt is very pleasant and interacts well with examiner. Course Reevaluation(s) Reevaluation #1: Patient at bedside at 1415, spoke with the patient's , they are having more difficulty handling her secretions at home. Case was discussed with the [facility] hospitalist for admission Medical Decision Making Medical Records Attestation: I reviewed the patient's medical records. Home Medications Current Medication List: was personally reviewed by me Laboratory Data Attestation: I reviewed the patient's lab results. Result diagrams: 12/16/21 12:55 12/16/21 12:55 Lab Results 12/16/21 12/16/21 12/16/21 Range/Units 12:55 12:55 12:55 WBC 7.73 (4.8-10.8) K/uL RBC 4.70 (4.2-5.4) M/uL Hgb 13.7 (12.0-16.0) g/dL Hct 42.1 (37-47) % MCV 89.6 (80-100) fL MCH 29.1 (25-34) pg MCHC 32.5 (32-36) g/dL RDW Std Deviation 49.0 H (36.4-46.3) fL RDW Coeff of Marcela 14.9 H (11.5-14.5) % Plt Count 342 (130-400) K/uL MPV 10.1 (7.4-10.4) fL Immature Gran % (Auto) 0.5 % Neut % (Auto) 72.3 % Lymph % (Auto) 17.5 % [place] % (Auto) 4.9 % Eos % (Auto) 4.4 % Baso % (Auto) 0.4 % Neut # (Auto) 5.59 (1.4-6.5) K/uL Lymph # (Auto) 1.35 (1.2-3.4) K/uL [place] # (Auto) 0.38 (0.11-0.59) K/uL Eos # (Auto) 0.34 (0-0.5) K/uL Baso # (Auto) 0.03 (0-0.2) K/uL Immature Gran # (Auto) 0.04 H (0.00-0.02) K/uL PT 10.4 (9.0-12.0) Seconds INR 1.0 (0.9-1.1) APTT 21.4 (21.0-31.0) Seconds PTT Ratio 0.8 Sodium 137 (136-145) mmol/L Potassium 4.4 (3.5-5.1) mmol/L Chloride 103 (98-107) mmol/L Carbon Dioxide 26 (21-32) mmol/L Anion Gap 8 (3-11) BUN 19 (6-23) mg/dl Creatinine 0.52 L (0.6-1.2) mg/dl Est Cr Clr Drug Dosing 69.3 ml/min Est GFR ( Amer) 106.8 ml/min Est GFR (Non-Af Amer) 92.2 ml/min BUN/Creatinine Ratio 36.5 H (10-20) Glucose 110 H (70-99(Fasting)) mg/dl Lactate (0.4-2.0) mmol/L Calcium 10.0 (8.5-10.1) mg/dl Magnesium 1.8 (1.7-2.4) mg/dl Total Bilirubin 0.4 (0.2-1.0) mg/dl AST 25 (13-39) U/L ALT 42 (7-52) U/L Alkaline Phosphatase 119 H (34-104) U/L Total Protein 6.8 (6.0-8.3) gm/dl Albumin 4.0 (3.4-5.0) gm/dl Globulin 2.8 (2.5-4.0) gm/dl Albumin/Globulin Ratio 1.4 (0.9-2) Urine Color Urine Appearance (Clear) Urine pH (4.5-7.5) Ur Specific [place] (1.000-1.030) Urine Protein (Negative) Urine Glucose (UA) (Negative) Urine Ketones (Negative) Urine Blood (Negative) Urine Nitrite (Negative) Urine Bilirubin (Negative) Urine Urobilinogen (Negative) Ur Leukocyte Esterase (Negative) Urine WBC (Auto) (0-5) /hpf Urine RBC (Auto) (0-4) /hpf U Hyaline Cast (Auto) (0-5) /lpf U Epithel Cells (Auto) (0-5) /lpf Urine Bacteria (Auto) (Negative) Urine Yeast (None Prsent) SARS-CoV-2, RNA, NAAT (NEGATIVE) 12/16/21 12/16/21 12/16/21 Range/Units 12:55 13:28 13:31 WBC (4.8-10.8) K/uL RBC (4.2-5.4) M/uL Hgb (12.0-16.0) g/dL Hct (37-47) % MCV (80-100) fL MCH (25-34) pg MCHC (32-36) g/dL RDW Std Deviation (36.4-46.3) fL RDW Coeff of Marcela (11.5-14.5) % Plt Count (130-400) K/uL MPV (7.4-10.4) fL Immature Gran % (Auto) % Neut % (Auto) % Lymph % (Auto) % [place] % (Auto) % Eos % (Auto) % Baso % (Auto) % Neut # (Auto) (1.4-6.5) K/uL Lymph # (Auto) (1.2-3.4) K/uL [place] # (Auto) (0.11-0.59) K/uL Eos # (Auto) (0-0.5) K/uL Baso # (Auto) (0-0.2) K/uL Immature Gran # (Auto) (0.00-0.02) K/uL PT (9.0-12.0) Seconds INR (0.9-1.1) APTT (21.0-31.0) Seconds PTT Ratio Sodium (136-145) mmol/L Potassium (3.5-5.1) mmol/L Chloride (98-107) mmol/L Carbon Dioxide (21-32) mmol/L Anion Gap (3-11) BUN (6-23) mg/dl Creatinine (0.6-1.2) mg/dl Est Cr Clr Drug Dosing ml/min Est GFR ( Amer) ml/min Est GFR (Non-Af Amer) ml/min BUN/Creatinine Ratio (10-20) Glucose (70-99(Fasting)) mg/dl Lactate 0.7 (0.4-2.0) mmol/L Calcium (8.5-10.1) mg/dl Magnesium (1.7-2.4) mg/dl Total Bilirubin (0.2-1.0) mg/dl AST (13-39) U/L ALT (7-52) U/L Alkaline Phosphatase (34-104) U/L Total Protein (6.0-8.3) gm/dl Albumin (3.4-5.0) gm/dl Globulin (2.5-4.0) gm/dl Albumin/Globulin Ratio (0.9-2) Urine Color Yellow Urine Appearance Turbid A (Clear) Urine pH 5.5 (4.5-7.5) Ur Specific [place] 1.011 (1.000-1.030) Urine Protein Trace H (Negative) Urine Glucose (UA) Negative (Negative) Urine Ketones Negative (Negative) Urine Blood 1+ H (Negative) Urine Nitrite Positive A (Negative) Urine Bilirubin Negative (Negative) Urine Urobilinogen Negative (Negative) Ur Leukocyte Esterase 3+ H (Negative) Urine WBC (Auto) >30 H (0-5) /hpf Urine RBC (Auto) 5-10 H (0-4) /hpf U Hyaline Cast (Auto) 1-5 (0-5) /lpf U Epithel Cells (Auto) 10-20 H (0-5) /lpf Urine Bacteria (Auto) 4+ H (Negative) Urine Yeast Budding w/ Hyphae A (None Prsent) SARS-CoV-2, RNA, NAAT NEGATIVE (NEGATIVE) Imaging Data Radiologist's Impression: Chest X-Ray 12/16/21 12:37 XR chest 1V portable HISTORY: 76 years-old Female SEPSIS acute sepsis COMPARISON: Chest radiograph 11/29/2021 TECHNIQUE: Portable AP view of the chest FINDINGS: Patient is rotated towards the left. Cardiac silhouette is enlarged. Atherosclerosis of the thoracic aorta. Unchanged left basilar opacities with possible left pleural effusion. No pneumothorax or overt pulmonary edema. Apparent malalignment of the anterolateral left first rib may be accentuated by positioning. An acute fracture could appear similarly. Degenerative changes of the shoulders and spine. IMPRESSION: 1. Cardiomegaly without pulmonary edema. 2. Unchanged left basilar opacities with possible left pleural effusion. ACT 112: Negative or not required by law. The above report was generated using voice recognition software. It may contain grammatical, syntax or spelling errors. Electronically signed by: Elvin Jonas M.D. 12/16/2021 1:42 PM MDM Narrative Medical decision making differential diagnosis includes pneumonia, sepsis, bronchitis, upper respiratory tract infection, exacerbation of ALS; is to start sepsis protocol evaluation Impression & Plan Excessive oral secretions, Weakness, Pulmonary infiltrate, Acute UTI (urinary tract infection) Discharge Plan Visit Data Chief Complaint: Shortness of Breath/Dyspnea Stated Complaint: SOB ED Provider: Jaun Enriquez Discharge Problem: Excessive oral secretions, Weakness, Pulmonary infiltrate, Acute UTI (urinary tract infection) Patient Disposition: Being Evaluated by Hospitalist Forms Stand Alone Forms: My [facility] Prescriptions Prescriptions: No Action losartan 50 mg tablet 100 mg feeding tube QAM RF: 0 lorazepam 0.5 mg tablet 0.5 mg PO HS PRN (Reason: Anxiety) RF: 0 lansoprazole 30 mg tablet,disintegrat, delay rel 30 mg feeding tube QAM RF: 0 ondansetron HCl 4 mg/5 mL solution 4 mg feeding tube Q6H PRN (Reason: Nausea And Vomiting) RF: 0 glycopyrrolate 2 mg tablet 2 mg PO TID PRN (Reason: Secretions) RF: 0 levothyroxine 112 mcg tablet 112 mcg feeding tube DAILYBB RF: 0 ipratropium-albuterol 0.5 mg-3 mg(2.5 mg base)/3 mL solution for nebulization 3 ml INHALATION TID PRN (Reason: Shortness Of Breath Or Wheezing) RF: 0 hydroxyzine HCl 25 mg tablet 25 mg feeding tube Q6 PRN (Reason: Anxiety) RF: 0 riluzole 50 mg tablet 50 mg PO BID RF: 0 guaifenesin 400 mg Tablet 400 mg PO DAILY RF: 0 oxycodone 5 mg tablet 5 mg feeding tube Q6H PRN (Reason: pain, severe) RF: 0 polyethylene glycol 3350 [Miralax] 17 gram Powder In Packet 17 g PO DAILY PRN (Reason: constipation) 30 Days Qty: 30 RF: 0 lidocaine 5 % Adhesive Patch,Medicated 1 patch TOPICAL DAILY RF: 0 scopolamine base 1 mg over 3 days patch 3 day 1 patch transdermal Q3D PRN (Reason: secretions) Qty: 4 RF: 0 amoxicillin-pot clavulanate 250-62.5 mg/5 mL suspension for reconstitution 10 ml feeding tube BID RF: 0 nitrofurantoin monohyd/m-cryst 100 mg capsule 100 mg feeding tube DAILY RF: 0 oxycodone 5 mg/5 mL solution 5 mg PO Q8H PRN (Reason: pain) Qty: 200 RF: 0 fluconazole 150 mg tablet 150 mg PO DAILY Qty: 1 RF: 1 Lortab Elixir 10-300 mg/15 mL solution 15 ml PO Q8H PRN (Reason: pain) Qty: 473 RF: 0 Referrals Referrals: Devonte Sweeney, [Primary Care Provider] -
[2021-12-16 13:10] LABS: Basophils # (auto) 0.03 K/uL (0-0.2); Basophils % (auto) 0.4 %; Eosinophils # (auto) 0.34 K/uL (0-0.5); Eosinophils % (auto) 4.4 %; Hematocrit (blood only) 42.1 % (37-47); Hemoglobin 13.7 g/dL (12.0-16.0); Immature Granulocytes # (auto) 0.04 K/uL (0.00-0.02); Immature Granulocytes % (auto) 0.5 %; Lymphocytes # (auto) 1.35 K/uL (1.2-3.4); Lymphocytes % (auto) 17.5 %; Mean Corpuscular Hemoglobin 29.1 pg (25-34); Mean Corpuscular Hgb Conc 32.5 g/dL (32-36); Mean Corpuscular Volume 89.6 fL (80-100); Mean Platelet Volume 10.1 fL (7.4-10.4); Monocytes # (auto) 0.38 K/uL (0.11-0.59); Monocytes % (auto) 4.9 %; Neutrophils # (auto) 5.59 K/uL (1.4-6.5); Neutrophils % (auto) 72.3 %; Platelet Count 342 K/uL (130-400); RDW Coefficient of Variation 14.9 % (11.5-14.5); White Blood Count 7.73 K/uL (4.8-10.8)
[2021-12-16 13:20] LABS: Partial Thromboplastin Ratio 0.8; Partial Thromboplastin Time 21.4 Seconds (21.0-31.0); Prothrombin Time 10.4 Seconds (9.0-12.0)
[2021-12-16 13:29] LABS: Albumin Globulin Ratio 1.4 (0.9-2); BUN Creatinine Ratio 36.5 (10-20); Bilirubin,Total 0.4 mg/dl (0.2-1.0); Creatinine Clr Calc Pharmacy 69.3 ml/min; Est GFR (African American) 106.8 ml/min; Est GFR (Non-African American) 92.2 ml/min; Globulin 2.8 gm/dl (2.5-4.0); Magnesium 1.8 mg/dl (1.7-2.4); Potassium 4.4 mmol/L (3.5-5.1); Total Protein 6.8 gm/dl (6.0-8.3)
--- NOTE | 2021-12-16 13:44 | XRay Report ---
XR chest 1V portable HISTORY: 76 years-old Female SEPSIS acute sepsis COMPARISON: Chest radiograph 11/29/2021 TECHNIQUE: Portable AP view of the chest FINDINGS: Patient is rotated towards the left. Cardiac silhouette is enlarged. Atherosclerosis of the thoracic aorta. Unchanged left basilar opacities with possible left pleural effusion. No pneumothorax or overt pulmonary edema. Apparent malalignment of the anterolateral left first rib may be accentuated by pos itioning. An acute fracture could appear similarly. Degenerative changes of the shoulders and spine. IMPRESSION: 1. Cardiomegaly without pulmonary edema. 2. Unchanged left basilar opacities with possible left pleural effusion. ACT 112: Negative or not required by law. The above report was generated using voice recognition software. It may contain grammatical, syntax o r spelling errors. Electronically signed by: Elvin Jonas M.D. 12/16/2021 1:42 PM
[2021-12-16 13:50] LABS: Appearance Urine Turbid (Clear); Bacteria Urine Automated 4+ (Negative); Bilirubin Urine Negative (Negative); Blood Urine 1+ (Negative); Color Urine Yellow; Glucose Urine UA Negative (Negative); Ketones Urine Negative (Negative); Leukocyte Esterase Urine 3+ (Negative); Nitrite Urine Positive (Negative); Protein Urine Trace (Negative); Specific Gravity Urine 1.011 (1.000-1.030); Urobilinogen Urine Negative (Negative); WBC Urine Automated >30 /hpf (0-5); pH Urine 5.5 (4.5-7.5)
[2021-12-16] MEDS ORDERED: cefTRIAXone SODIUM 2,000 MG/70 ML BAG IV STA (14:21)
[2021-12-16] MEDS ORDERED: CONSULT PHARMACY STA (14:32)
[2021-12-16] MEDS ORDERED: oxyCODONE HCL SOLN 5 MG/5 ML UDC GT PRN (16:18)
[2021-12-16] MEDS ORDERED: SCOPOLAMINE 1 MG TDSY TD PRN (16:18)
[2021-12-16] MEDS ORDERED: oxyCODONE HCL IR 5 MG TAB (IMMEDIATE RELEASE) PEG PRN (16:18)
[2021-12-16] MEDS ORDERED: ALBUT/IPRATROP 3MG/0.5MG NEB 3 ML VIAL INH PRN (16:18)
[2021-12-16] MEDS ORDERED: POLYETHYLENE (MIRALAX) 17 GM PACK GT PRN (16:18)
--- NOTE | 2021-12-16 16:48 | History & Physical Report ---
Date of Service December 16, 2021 delayed entry date of service noted above Assessment & Plan (1) ALS (amyotrophic lateral sclerosis): (2) Excessive oral secretions: Plan: 76 YEAR OLD WITH ALS, S/P PEG TUBE, CILD, HTN, HYPOTHYROIDISM, ETC PRESENTING FOR INCREASED SECRETIONS, EPISODES OF SHORTNESS OF BREATH. EXCESSIVE ORAL SECRETIONS LIKELY FROM ALS PROGRESSION TUBE FEEDING - check KUB hold off tube feeding GI and [facility] consult - Suctioning q1h - PRN Glycopyrrolate Scopolamine patch - on Dilaudid PRN at home C DIFF COLITIS 4TH EPISODE - change Vanco PO to Fidaxomicin UTI - Urine culture: pending - Zosyn IV CHRONIC INTERSTITIAL LUNG DISEASE - CXR: chronic L pleural effusion HYPERTENSION -continue Losartan DVT prophylaxis Heparin subcu every 12 hours Disposition Lives at home, being taken care of by her and also her daughter As per family, they still would like the patient to return home with their care when medically stable plan of care discussed with patient and family at bedside in detail and at length all questions answered they are understanding, agreeable, comfortable with the plan of care Admission and Anticipated Discharge Date Admission Date: December 16, 2021 History of Present Illness Chief Complaint: 76 YEAR OLD WITH ALS, S/P PEG TUBE, CILD, HTN, HYPOTHYROIDISM, ETC PRESENTING FOR INCREASED SECRETIONS, EPISODES OF SHORTNESS OF BREATH. Patient d/c from [facility] end of October 2021 after evaluation of increased secretion and hypoxia. History obtained from patient's daughter and son. Patient brought to the ER for increased secretions - white, thick- seen thru patient's suction machine/wand, associated with episodes of shortness of breath. No fever/chills. On Peptamen 250cc QID via gravity with free water flushes of 100cc before and after. Also being treated for 4th episode of C diff colitis with Vanco PO- started 12/13/21 with no improvement. Patient still having about 20 loose BMs per family. On exam, patient seen resting, sitting up. Main complaint is abdominal discomfort - cramping and burning. no chest pain, dyspnea, palpitations, dizziness No other symptoms Primary Care Provider: Devonte Sweeney DO Allergies Allergy/AdvReac Type Severity Reaction Status Date / Time Iodinated Contrast Media Allergy Severe dyspnea Verified 12/16/21 15:45 azithromycin Allergy Intermediate rash Verified 12/16/21 15:45 cefaclor Allergy Intermediate hives Verified 12/16/21 15:45 erythromycin base Allergy Intermediate hives Verified 12/16/21 15:45 levalbuterol Allergy Intermediate chest pain Verified 11/29/21 08:45 minocycline Allergy Intermediate rash Verified 12/16/21 15:45 nitrofurantoin Allergy Intermediate possible Verified 12/16/21 15:45 hives or dyspnea phenazopyridine Allergy Intermediate dyspnea Verified 12/16/21 15:45 Sulfa (Sulfonamide Allergy Intermediate hives Verified 12/16/21 15:45 Antibiotics) oxycodone [From OxyContin] Allergy Unknown Unverified 12/16/21 15:52 metronidazole AdvReac Intermediate GI symptoms Verified 11/29/21 08:45 morphine AdvReac Intermediate vomiting Verified 11/29/21 08:45 levofloxacin AdvReac Mild abdominal Verified 12/16/21 15:45 pain albuterol [From Ventolin HFA] AdvReac Chest Pain Unverified 12/16/21 15:52 iodine AdvReac Anaphylaxis Unverified 12/16/21 15:52 tramadol AdvReac Confusion Unverified 12/16/21 15:52 Home Medications Medication Instructions Recorded Confirmed Type lansoprazole 30 mg delayed 30 mg FEEDING TUBE QAM 07/08/19 12/16/21 History release,disintegrating tablet lorazepam 0.5 mg tablet 1 mg PO HS PRN 07/08/19 12/16/21 History losartan 50 mg tablet 100 mg FEEDING TUBE QAM 07/08/19 12/16/21 History lidocaine 5 % topical patch 1 patch TOPICAL DAILY 07/22/21 12/16/21 History glycopyrrolate 2 mg tablet 2 mg PO TID 11/22/21 12/16/21 History hydroxyzine HCl 25 mg tablet 25 mg FEEDING TUBE TID PRN 11/22/21 12/16/21 History ipratropium 0.5 mg-albuterol 3 mg 3 ml INHALATION Q6H PRN 11/22/21 12/16/21 History (2.5 mg base)/3 mL nebulization soln levothyroxine 112 mcg tablet 112 mcg FEEDING TUBE DAILYBB 11/22/21 12/16/21 History riluzole 50 mg tablet 50 mg PO BID 11/22/21 12/16/21 History polyethylene glycol 3350 17 gram 17 g PO DAILY PRN 30 Days #30 ea 11/26/21 12/16/21 Rx oral powder packet (Miralax) hydrocodone 10 mg-acetaminophen 15 ml PO Q8H PRN #473 ml 11/29/21 12/16/21 Rx 300 mg/15 mL oral solution (Lortab Elixir) albuterol sulfate 2.5 mg INHALATION Q4H PRN 12/16/21 12/16/21 History clotrimazole 1 % topical solution 1 applic TOPICAL BID PRN 12/16/21 12/16/21 History dicyclomine 20 mg tablet 20 mg PO Q6H 12/16/21 12/16/21 History guaifenesin 200 mg/5 mL oral liquid 400 mg FEEDING TUBE Q6H 12/16/21 12/16/21 History hydromorphone 1 mg/mL oral liquid 1 mg PO Q4H PRN 12/16/21 12/16/21 History lactobacillus combination no.4 3 0 mmu cells PO HS 12/16/21 12/16/21 History billion cell capsule (Probiotic) levocetirizine 5 mg tablet 5 mg PO HS 12/16/21 12/16/21 History menthol 0.44 %-zinc oxide 20.6 % 1 applic TOPICAL QID PRN 12/16/21 12/16/21 History topical ointment (Calmoseptine) nutritional supplements 1 ea FEEDING TUBE Q6H 12/16/21 12/16/21 History ondansetron HCl 4 mg tablet 4 mg PO Q6H 12/16/21 12/16/21 History scopolamine base 1 mg over 3 days 1 patch TRANSDERMAL Q3D 12/16/21 12/16/21 History transdermal patch vancomycin 50 mg/mL oral solution 125 mg FEEDING TUBE Q6H 12/16/21 12/16/21 History Past Med/Surg History Medical History ALS (amyotrophic lateral sclerosis) Cancer left breast (2015) s/p left lumpectomy/XRT, no chemo Cervical stenosis of spinal canal GERD (gastroesophageal reflux disease) controlled, stable. Patient sleeps elevated HS. 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) "Abnormal left breast mammogram Status post stereotactic biopsy 11/14/2015 revealing DCIS grade 1 Estrogen receptor positive and progesterone receptor positive Status post needle localization lumpectomy 12/20/2015 Stage pTis pNX Status post completion of radiation therapy 03/01/2016 received 3850 cGy utilizing accelerated partial breast irradiation." On 03/14/16 11:36 Ese Cabrera wrote "Abnormal left breast mammogram Status post stereotactic biopsy 11/14/2015 revealing DCIS grade 1 Estrogen receptor positive and progesterone receptor positive Status post needle localization lumpectomy 12/20/2015 Stage pTis pNX Status post completion of radiation therapy 03/01/2016 received 3850 cGy utilizing accelerated partial breast irradiation." On 02/01/16 11:23 Ese Cabrera wrote "Abnormal left breast mammogram Status post stereotactic biopsy 11/14/2015 revealing DCIS grade 1 Estrogen receptor positive and progesterone receptor positive Status post needle localization lumpectomy 12/20/2015 Stage pTis pNX" Lab test negative for COVID-19 virus Osteoarthritis SOB (shortness of breath) Surgical History H/O foot surgery R ORIF History of appendectomy History of carpal tunnel release R/L History of colectomy D/T DIVERTICULITIS History of colonoscopy MULTIPLE History of D&C D&C, hysteroscopy: 10/24/17: LMA# 4 at [facility] History of esophagogastroduodenoscopy (EGD) History of lumpectomy of left breast 2015 History of tonsillectomy S/P percutaneous endoscopic gastrostomy (PEG) tube placement Family History Mother Breast cancer Social History Smoking Status: Never smoker Tobacco Type: Cigarettes Second Hand Exposure: No; Hx Alcohol Use: No Hx Substance Use: No Preferred Language: Korean Communication Ability: Effective Communications Attendant Required: No Beliefs That Will Affect Care: None marital status: Current Living Situation: Other Current Living Situation Comment: with and daughter Other Information That Helps Us Care for You: No Feels Safe at Home: Yes Safety Concerns: Feels Safe At This Time Assistive Devices: Mechanical Lift and Oxygen - Continuous Review of Systems Review of Systems: all noted and negative except for above Physical Exam Physical Exam: General- oriented x 3, not in distress, speaks in sentences with no effort or accessory muscle use Head- atraumatic Eyes- PERRL, EOMI, anicteric ENT- oropharynx clear Neck- supple, no JVD, no adenopathy, no thyromegaly; carotids +2/2, no bruits appreciated Lungs- mild rales left base, clear on the right Heart- normal rate, regular rhythm; no murmur, no gallop, no rub appreciated Abdomen- normal bowel sounds, nondistended, soft, (+) PEG tube, mild tenderness, no masses or hepatosplenomegaly Extremities- no pretibial edema, no calf tenderness; peripheral pulses intact Neuro- alert, oriented x 3;(+) dysarthria; r side 3-4/5, l side 0/5 Skin- warm & dry Results & Data Results & Data ([facility]) Vital Signs (Past 12 Hours) Vital Signs Temp Pulse Pulse Resp BP BP Pulse Ox 12/16/21 16:34 90 12/16/21 16:00 94 12/16/21 15:37 95 12/16/21 15:30 94 H 24 12/16/21 15:07 97 12/16/21 15:00 88 24 12/16/21 14:37 97 12/16/21 14:30 87 22 12/16/21 14:07 96 12/16/21 14:00 92 H 23 12/16/21 13:37 96 12/16/21 13:30 89 22 12/16/21 13:07 95 12/16/21 13:00 84 26 H 12/16/21 12:45 86 24 93 12/16/21 12:37 36.7 C 85 19 139/97 96 12/16/21 12:23 36.7 C 89 19 139/97 93 all noted and reviewed including below Code Status & VTE Plan VTE Prophylaxis Plan VTE Prophylaxis will be ordered: Yes
[2021-12-16] MEDS: D5W AND NSS 1,000 ML IV SCH (18:05)
--- NOTE | 2021-12-16 18:10 | XRay Report ---
KUB HISTORY: Status post placement of a feeding tube PEG TUBE PLACEMENT COMPARISON: Chest radiograph of same day. FINDINGS: A feeding tube projects over the gastric body. Mildly dilated air-filled loops of small bow el within the central abdomen measure up to 3.4 cm. Air-filled loops of large bowel also noted. Carlota cystectomy clips. Surgical clips project over the abdominal right lower quadrant. No renal calculi. N o ureteral calculi. No pneumoperitoneum or pneumatosis. Degenerative changes of the spine, pelvis and hips. No fracture. IMPRESSION: 1. PEG tube projects over the stomach. 2. Air-filled loops of large and small bowel may reflect an ileus. Follow-up recommended. ACT 112: Negative or not required by law. The above report was generated using voice recognition software. It may contain grammatical, syntax o r spelling errors. Electronically signed by: Elvin Jonas M.D. 12/16/2021 6:09 PM
[2021-12-16] MEDS: RILUZOLE PO SCH (21:08)
[2021-12-16] MEDS: FIDAXOMICIN 200 MG TAB PO SCH (21:09)
[2021-12-16] MEDS: guaiFENesin SUGAR FREE 100 MG/5 ML UDC PO PRN (21:10)
[2021-12-16] MEDS: HYDROmorphone INJ 0.5 MG/0.5 ML SYR IV PRN (21:24)
[2021-12-16] MEDS: LORazepam 0.5 MG TAB SL PRN (21:25)
[2021-12-16] MEDS ORDERED: PIPERACILL/TAZOBAC CONSULT ACTIVE PRN (21:28)
[2021-12-16] MEDS ORDERED: PIPERACILLIN/TAZOBACTAM 3.375 GM in DEXTROSE 5% 100 ML IV ONE (21:30)
[2021-12-17] MEDS: HYDROmorphone INJ 0.5 MG/0.5 ML SYR IV PRN ×2 (03:26→23:22)
[2021-12-17] MEDS: hydrOXYzine HCl 25 MG TAB PEG PRN (03:26)
[2021-12-17] MEDS: PIPERACILLIN/TAZOBACTAM 3.375 GM in DEXTROSE 5% 100 ML IV SCH ×3 (04:11→21:08)
[2021-12-17] MEDS: LEVOTHYROXINE SODIUM 112 MCG TABLET PEG SCH (06:26)
[2021-12-17] MEDS: D5W AND NSS 1,000 ML IV SCH ×2 (08:14→21:15)
[2021-12-17] MEDS: guaiFENesin SUGAR FREE 200 MG/10 ML UDC PEG SCH (08:15)
[2021-12-17] MEDS: LACTOBACILLUS ACIDOPHILUS 1 GM PACK PEG SCH (08:16)
[2021-12-17] MEDS: LIDOCAINE 5% 1 PATCH TD SCH (08:16)
[2021-12-17] MEDS: LOSARTAN POTASSIUM 50 MG TAB PEG SCH (08:16)
[2021-12-17] MEDS: RILUZOLE PO SCH ×2 (08:17→21:11)
[2021-12-17] MEDS: FIDAXOMICIN 200 MG TAB PO SCH ×2 (09:58→21:15)
[2021-12-17] MEDS: LANSOPRAZOLE 30 MG SOLTAB PEG SCH (09:59)
--- NOTE | 2021-12-17 11:36 | Gastrointestinal Consultation ---
Date of Consultation December 17, 2021 Assessment & Plan (1) Excessive oral secretions: 76 year old female with ALS admitted w/ shortness of breath and increased oral secretions, GI asked to evaluate her PEG tube. Tube is in place without any discomfort or reported issues with use. would discuss goals of care with patient and family potential for aspiration from tube feeds oral secretion management per primary team Avoid unnecessary ABX US Continue fidaxomicin Daily KUB No fecal transplants being completed for recurrent c.diff within [facility], operated by [facility] due to covid protocols Recall as needed. Thank you for allowing us to participate in the care of this patient. Please call with any acute changes, questions or concerns. Please see addendum below with additional recommendation from my supervising physician. Supervising Physician Co-Signing Physician Notes Attg add: I interviewed and examined pt, reviewed chart and labs. Consulted for PEG tube eval - PEG tube appears to be in place and funcitonal. Can consider trach, hospice eval, trial of scopolamine if pt is aspirating oral secretions. Please call us with questions. History of Present Illness Reason for Consultation: eval PEG Requesting Physician: Savannah Attending Physician: Bill Nuñez MD History of Present Illness 76 year old female with ALS who underwent PEG placement by IR as no endoscopic window who is admitted through the ED w/ shortness of breath and increased oral secretions. She denies any abdominal pain, nausea, vomiting. She notes the PEG tube is working well, no usability concerns. Has been battling c.diff infection as well - on dificid KUB 2021: PEG tube projects over the stomach. 2. Air-filled loops of large and small bowel may reflect an ileus. Follow-up recommended. Chest XR 2021: cardiomegaly without pulmonary edema. 2. Unchanged left basilar opacities with possible left pleural effusion. Allergies Allergy/AdvReac Type Severity Reaction Status Date / Time Iodinated Contrast Media Allergy Severe dyspnea Verified 12/16/21 15:45 azithromycin Allergy Intermediate rash Verified 12/16/21 15:45 cefaclor Allergy Intermediate hives Verified 12/16/21 15:45 erythromycin base Allergy Intermediate hives Verified 12/16/21 15:45 levalbuterol Allergy Intermediate chest pain Verified 11/29/21 08:45 minocycline Allergy Intermediate rash Verified 12/16/21 15:45 nitrofurantoin Allergy Intermediate possible Verified 12/16/21 15:45 hives or dyspnea phenazopyridine Allergy Intermediate dyspnea Verified 12/16/21 15:45 Sulfa (Sulfonamide Allergy Intermediate hives Verified 12/16/21 15:45 Antibiotics) oxycodone [From OxyContin] Allergy Unknown Unverified 12/16/21 15:52 metronidazole AdvReac Intermediate GI symptoms Verified 11/29/21 08:45 morphine AdvReac Intermediate vomiting Verified 11/29/21 08:45 levofloxacin AdvReac Mild abdominal Verified 12/16/21 15:45 pain albuterol [From Ventolin HFA] AdvReac Chest Pain Unverified 12/16/21 15:52 iodine AdvReac Anaphylaxis Unverified 12/16/21 15:52 tramadol AdvReac Confusion Unverified 12/16/21 15:52 Home Medications Medication Instructions Recorded Confirmed Type lansoprazole 30 mg delayed 30 mg FEEDING TUBE QAM 07/08/19 12/16/21 History release,disintegrating tablet lorazepam 0.5 mg tablet 1 mg PO HS PRN 07/08/19 12/16/21 History losartan 50 mg tablet 100 mg FEEDING TUBE QAM 07/08/19 12/16/21 History lidocaine 5 % topical patch 1 patch TOPICAL DAILY 07/22/21 12/16/21 History glycopyrrolate 2 mg tablet 2 mg PO TID 11/22/21 12/16/21 History hydroxyzine HCl 25 mg tablet 25 mg FEEDING TUBE TID PRN 11/22/21 12/16/21 History ipratropium 0.5 mg-albuterol 3 mg 3 ml INHALATION Q6H PRN 11/22/21 12/16/21 History (2.5 mg base)/3 mL nebulization soln levothyroxine 112 mcg tablet 112 mcg FEEDING TUBE DAILYBB 11/22/21 12/16/21 History riluzole 50 mg tablet 50 mg PO BID 11/22/21 12/16/21 History polyethylene glycol 3350 17 gram 17 g PO DAILY PRN 30 Days #30 ea 11/26/21 12/16/21 Rx oral powder packet (Miralax) hydrocodone 10 mg-acetaminophen 15 ml PO Q8H PRN #473 ml 11/29/21 12/16/21 Rx 300 mg/15 mL oral solution (Lortab Elixir) albuterol sulfate 2.5 mg INHALATION Q4H PRN 12/16/21 12/16/21 History clotrimazole 1 % topical solution 1 applic TOPICAL BID PRN 12/16/21 12/16/21 History dicyclomine 20 mg tablet 20 mg PO Q6H 12/16/21 12/16/21 History guaifenesin 200 mg/5 mL oral liquid 400 mg FEEDING TUBE Q6H 12/16/21 12/16/21 History hydromorphone 1 mg/mL oral liquid 1 mg PO Q4H PRN 12/16/21 12/16/21 History lactobacillus combination no.4 3 0 mmu cells PO HS 12/16/21 12/16/21 History billion cell capsule (Probiotic) levocetirizine 5 mg tablet 5 mg PO HS 12/16/21 12/16/21 History menthol 0.44 %-zinc oxide 20.6 % 1 applic TOPICAL QID PRN 12/16/21 12/16/21 History topical ointment (Calmoseptine) nutritional supplements 1 ea FEEDING TUBE Q6H 12/16/21 12/16/21 History ondansetron HCl 4 mg tablet 4 mg PO Q6H 12/16/21 12/16/21 History scopolamine base 1 mg over 3 days 1 patch TRANSDERMAL Q3D 12/16/21 12/16/21 History transdermal patch vancomycin 50 mg/mL oral solution 125 mg FEEDING TUBE Q6H 12/16/21 12/16/21 History Patient History Medical History ALS (amyotrophic lateral sclerosis) Cancer left breast (2015) s/p left lumpectomy/XRT, no chemo Cervical stenosis of spinal canal GERD (gastroesophageal reflux disease) controlled, stable. Patient sleeps elevated HS. 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) "Abnormal left breast mammogram Status post stereotactic biopsy 11/14/2015 revealing DCIS grade 1 Estrogen receptor positive and progesterone receptor positive Status post needle localization lumpectomy 12/20/2015 Stage pTis pNX Status post completion of radiation therapy 03/01/2016 received 3850 cGy utilizing accelerated partial breast irradiation." On 03/14/16 11:36 Ese Cabrera wrote "Abnormal left breast mammogram Status post stereotactic biopsy 11/14/2015 revealing DCIS grade 1 Estrogen receptor positive and progesterone receptor positive Status post needle localization lumpectomy 12/20/2015 Stage pTis pNX Status post completion of radiation therapy 03/01/2016 received 3850 cGy utilizing accelerated partial breast irradiation." On 02/01/16 11:23 Ese Cabrera wrote "Abnormal left breast mammogram Status post stereotactic biopsy 11/14/2015 revealing DCIS grade 1 Estrogen receptor positive and progesterone receptor positive Status post needle localization lumpectomy 12/20/2015 Stage pTis pNX" Lab test negative for COVID-19 virus Osteoarthritis SOB (shortness of breath) Surgical History H/O foot surgery R ORIF History of appendectomy History of carpal tunnel release R/L History of colectomy D/T DIVERTICULITIS History of colonoscopy MULTIPLE History of D&C D&C, hysteroscopy: 10/24/17: LMA# 4 at [facility] History of esophagogastroduodenoscopy (EGD) History of lumpectomy of left breast 2015 History of tonsillectomy S/P percutaneous endoscopic gastrostomy (PEG) tube placement Family History Mother Breast cancer Social History Smoking Status: Never smoker Tobacco Type: Cigarettes Second Hand Exposure: No; Hx Alcohol Use: No Hx Substance Use: No Preferred Language: Tristanian Communication Ability: Effective Pulling Machine Operator Required: No Beliefs That Will Affect Care: None marital status: Current Living Situation: Other Current Living Situation Comment: with and daughter Other Information That Helps Us Care for You: No Feels Safe at Home: Yes Safety Concerns: Feels Safe At This Time Assistive Devices: Mechanical Lift and Oxygen - Continuous Review of Systems Review of Systems: All systems reviewed & are unremarkable except as noted in HPI & below Physical Exam Physical Exam: Thin frail female in no acute distress. PEG in place. No abd pain w/ palpation Results & Data ([facility]) Vital Signs (Past 12 Hours) Vital Signs Temp Pulse Pulse Pulse Resp BP Pulse Ox 12/17/21 07:37 36.5 C 71 16 173/46 H 95 12/17/21 07:18 58 L 12/17/21 03:10 36.5 C 78 18 185/74 H 92 12/17/21 01:00 18 92 Laboratory Results 12/17/21 12/16/21 12/16/21 Range/Units 03:56 13:31 13:28 WBC (4.8-10.8) K/uL RBC (4.2-5.4) M/uL Hgb (12.0-16.0) g/dL Hct (37-47) % MCV (80-100) fL MCH (25-34) pg MCHC (32-36) g/dL RDW Std Deviation (36.4-46.3) fL RDW Coeff of Marcela (11.5-14.5) % Plt Count (130-400) K/uL MPV (7.4-10.4) fL Immature Gran % (Auto) % Neut % (Auto) % Lymph % (Auto) % Nolan % (Auto) % Eos % (Auto) % Baso % (Auto) % Neut # (Auto) (1.4-6.5) K/uL Lymph # (Auto) (1.2-3.4) K/uL Nolan # (Auto) (0.11-0.59) K/uL Eos # (Auto) (0-0.5) K/uL Baso # (Auto) (0-0.2) K/uL Immature Gran # (Auto) (0.00-0.02) K/uL PT (9.0-12.0) Seconds INR (0.9-1.1) APTT (21.0-31.0) Seconds PTT Ratio Sodium (136-145) mmol/L Potassium (3.5-5.1) mmol/L Chloride (98-107) mmol/L Carbon Dioxide (21-32) mmol/L Anion Gap (3-11) BUN (6-23) mg/dl Creatinine (0.6-1.2) mg/dl Est Cr Clr Drug Dosing ml/min Est GFR ( Amer) ml/min Est GFR (Non-Af Amer) ml/min BUN/Creatinine Ratio (10-20) Glucose (70-99(Fasting)) mg/dl POC Glucose 128 H (70-99) mg/dl Lactate (0.4-2.0) mmol/L Calcium (8.5-10.1) mg/dl Magnesium (1.7-2.4) mg/dl Total Bilirubin (0.2-1.0) mg/dl AST (13-39) U/L ALT (7-52) U/L Alkaline Phosphatase (34-104) U/L Total Protein (6.0-8.3) gm/dl Albumin (3.4-5.0) gm/dl Globulin (2.5-4.0) gm/dl Albumin/Globulin Ratio (0.9-2) Urine Color Yellow Urine Appearance Turbid A (Clear) Urine pH 5.5 (4.5-7.5) Ur Specific Peel 1.011 (1.000-1.030) Urine Protein Trace H (Negative) Urine Glucose (UA) Negative (Negative) Urine Ketones Negative (Negative) Urine Blood 1+ H (Negative) Urine Nitrite Positive A (Negative) Urine Bilirubin Negative (Negative) Urine Urobilinogen Negative (Negative) Ur Leukocyte Esterase 3+ H (Negative) Urine WBC (Auto) >30 H (0-5) /hpf Urine RBC (Auto) 5-10 H (0-4) /hpf U Hyaline Cast (Auto) 1-5 (0-5) /lpf U Epithel Cells (Auto) 10-20 H (0-5) /lpf Urine Bacteria (Auto) 4+ H (Negative) Urine Yeast Budding w/ Hyphae A (None Prsent) SARS-CoV-2, RNA, NAAT NEGATIVE (NEGATIVE) 12/16/21 12/16/21 12/16/21 Range/Units 12:55 12:55 12:55 WBC (4.8-10.8) K/uL RBC (4.2-5.4) M/uL Hgb (12.0-16.0) g/dL Hct (37-47) % MCV (80-100) fL MCH (25-34) pg MCHC (32-36) g/dL RDW Std Deviation (36.4-46.3) fL RDW Coeff of Marcela (11.5-14.5) % Plt Count (130-400) K/uL MPV (7.4-10.4) fL Immature Gran % (Auto) % Neut % (Auto) % Lymph % (Auto) % Nolan % (Auto) % Eos % (Auto) % Baso % (Auto) % Neut # (Auto) (1.4-6.5) K/uL Lymph # (Auto) (1.2-3.4) K/uL Nolan # (Auto) (0.11-0.59) K/uL Eos # (Auto) (0-0.5) K/uL Baso # (Auto) (0-0.2) K/uL Immature Gran # (Auto) (0.00-0.02) K/uL PT 10.4 (9.0-12.0) Seconds INR 1.0 (0.9-1.1) APTT 21.4 (21.0-31.0) Seconds PTT Ratio 0.8 Sodium 137 (136-145) mmol/L Potassium 4.4 (3.5-5.1) mmol/L Chloride 103 (98-107) mmol/L Carbon Dioxide 26 (21-32) mmol/L Anion Gap 8 (3-11) BUN 19 (6-23) mg/dl Creatinine 0.52 L (0.6-1.2) mg/dl Est Cr Clr Drug Dosing 69.3 ml/min Est GFR ( Amer) 106.8 ml/min Est GFR (Non-Af Amer) 92.2 ml/min BUN/Creatinine Ratio 36.5 H (10-20) Glucose 110 H (70-99(Fasting)) mg/dl POC Glucose (70-99) mg/dl Lactate 0.7 (0.4-2.0) mmol/L Calcium 10.0 (8.5-10.1) mg/dl Magnesium 1.8 (1.7-2.4) mg/dl Total Bilirubin 0.4 (0.2-1.0) mg/dl AST 25 (13-39) U/L ALT 42 (7-52) U/L Alkaline Phosphatase 119 H (34-104) U/L Total Protein 6.8 (6.0-8.3) gm/dl Albumin 4.0 (3.4-5.0) gm/dl Globulin 2.8 (2.5-4.0) gm/dl Albumin/Globulin Ratio 1.4 (0.9-2) Urine Color Urine Appearance (Clear) Urine pH (4.5-7.5) Ur Specific Peel (1.000-1.030) Urine Protein (Negative) Urine Glucose (UA) (Negative) Urine Ketones (Negative) Urine Blood (Negative) Urine Nitrite (Negative) Urine Bilirubin (Negative) Urine Urobilinogen (Negative) Ur Leukocyte Esterase (Negative) Urine WBC (Auto) (0-5) /hpf Urine RBC (Auto) (0-4) /hpf U Hyaline Cast (Auto) (0-5) /lpf U Epithel Cells (Auto) (0-5) /lpf Urine Bacteria (Auto) (Negative) Urine Yeast (None Prsent) SARS-CoV-2, RNA, NAAT (NEGATIVE) 12/16/21 Range/Units 12:55 WBC 7.73 (4.8-10.8) K/uL RBC 4.70 (4.2-5.4) M/uL Hgb 13.7 (12.0-16.0) g/dL Hct 42.1 (37-47) % MCV 89.6 (80-100) fL MCH 29.1 (25-34) pg MCHC 32.5 (32-36) g/dL RDW Std Deviation 49.0 H (36.4-46.3) fL RDW Coeff of Marcela 14.9 H (11.5-14.5) % Plt Count 342 (130-400) K/uL MPV 10.1 (7.4-10.4) fL Immature Gran % (Auto) 0.5 % Neut % (Auto) 72.3 % Lymph % (Auto) 17.5 % Nolan % (Auto) 4.9 % Eos % (Auto) 4.4 % Baso % (Auto) 0.4 % Neut # (Auto) 5.59 (1.4-6.5) K/uL Lymph # (Auto) 1.35 (1.2-3.4) K/uL Nolan # (Auto) 0.38 (0.11-0.59) K/uL Eos # (Auto) 0.34 (0-0.5) K/uL Baso # (Auto) 0.03 (0-0.2) K/uL Immature Gran # (Auto) 0.04 H (0.00-0.02) K/uL PT (9.0-12.0) Seconds INR (0.9-1.1) APTT (21.0-31.0) Seconds PTT Ratio Sodium (136-145) mmol/L Potassium (3.5-5.1) mmol/L Chloride (98-107) mmol/L Carbon Dioxide (21-32) mmol/L Anion Gap (3-11) BUN (6-23) mg/dl Creatinine (0.6-1.2) mg/dl Est Cr Clr Drug Dosing ml/min Est GFR ( Amer) ml/min Est GFR (Non-Af Amer) ml/min BUN/Creatinine Ratio (10-20) Glucose (70-99(Fasting)) mg/dl POC Glucose (70-99) mg/dl Lactate (0.4-2.0) mmol/L Calcium (8.5-10.1) mg/dl Magnesium (1.7-2.4) mg/dl Total Bilirubin (0.2-1.0) mg/dl AST (13-39) U/L ALT (7-52) U/L Alkaline Phosphatase (34-104) U/L Total Protein (6.0-8.3) gm/dl Albumin (3.4-5.0) gm/dl Globulin (2.5-4.0) gm/dl Albumin/Globulin Ratio (0.9-2) Urine Color Urine Appearance (Clear) Urine pH (4.5-7.5) Ur Specific Peel (1.000-1.030) Urine Protein (Negative) Urine Glucose (UA) (Negative) Urine Ketones (Negative) Urine Blood (Negative) Urine Nitrite (Negative) Urine Bilirubin (Negative) Urine Urobilinogen (Negative) Ur Leukocyte Esterase (Negative) Urine WBC (Auto) (0-5) /hpf Urine RBC (Auto) (0-4) /hpf U Hyaline Cast (Auto) (0-5) /lpf U Epithel Cells (Auto) (0-5) /lpf Urine Bacteria (Auto) (Negative) Urine Yeast (None Prsent) SARS-CoV-2, RNA, NAAT (NEGATIVE)
--- NOTE | 2021-12-17 11:37 | Hospitalist Progress Note ---
Date of Service December 17, 2021 Assessment & Plan (1) ALS (amyotrophic lateral sclerosis): (2) Excessive oral secretions: Plan: 76 YEAR OLD WITH ALS, S/P PEG TUBE, CILD, HTN, HYPOTHYROIDISM, ETC PRESENTING FOR INCREASED SECRETIONS, EPISODES OF SHORTNESS OF BREATH. EXCESSIVE ORAL SECRETIONS LIKELY FROM ALS PROGRESSION TUBE FEEDING - KUB: 1. PEG tube projects over the stomach. 2. Air-filled loops of large and small bowel may reflect an ileus. Follow-up recommended. hold off tube feeding GI and Hardwood Floor Refinisher consult- pending recommendations - Suctioning q1h - PRN Glycopyrrolate Scopolamine patch - on Dilaudid PRN at home C DIFF COLITIS 4TH EPISODE - change Vanco PO to Fidaxomicin - diarrhea improving UTI - Urine culture: pending - Zosyn IV CHRONIC INTERSTITIAL LUNG DISEASE - CXR: chronic L pleural effusion HYPERTENSION -continue Losartan DVT prophylaxis Heparin subcu every 12 hours Disposition Lives at home, being taken care of by her and also her daughter As per family, they still would like the patient to return home with their care when medically stable plan of care discussed with patient and family at bedside in detail and at length all questions answered they are understanding, agreeable, comfortable with the plan of care Admission and Anticipated Discharge Date Admission Date: December 16, 2021 Subjective Follow-up for excessive oral secretions, recurrent C. difficile colitis, etc. No acute events overnight per RN Minimal secretions noted 1 soft bowel movement this morning Resting in bed, sitting up, not in distress States she feels okay Abdominal pain has resolved No shortness of breath No other symptoms Review of Systems Review of Systems: all noted and negative except for above Physical Exam Physical Exam: General- oriented x 3, not in distress, speaks in sentences with no effort or accessory muscle use Eyes- anicteric Neck- no JVD Lungs-decreased breath sounds left base, clear on the right Heart- normal rate, regular rhythm; no murmurs Abdomen- normal bowel sounds, nondistended, soft, nontender PEG tube in place Extremities- no pretibial edema, no calf tenderness Neuro- alert, oriented x 3; no new gross focal neurologic deficits Skin- warm & dry Results & Data Results & Data ([facility]) Vital Signs (Past 12 Hours) Vital Signs Temp Pulse Pulse Pulse Resp BP Pulse Ox 12/17/21 07:37 36.5 C 71 16 173/46 H 95 12/17/21 07:18 58 L 12/17/21 03:10 36.5 C 78 18 185/74 H 92 12/17/21 01:00 18 92 all noted and reviewed including below
[2021-12-17] MEDS: GLYCOPYRROLATE 1 MG TAB PO PRN (11:39)
--- NOTE | 2021-12-17 14:00 | Electrocardiogram Report ---
Test Reason : Blood Pressure : / mmHG Vent. Rate : 087 BPM Atrial Rate : 087 BPM P-R Int : 136 ms QRS Dur : 086 ms QT Int : 362 ms P-R-T Axes : 021 -39 021 degrees QTc Int : 435 ms Normal sinus rhythm Left axis deviation Minimal voltage criteria for LVH, may be normal variant Anterolateral infarct , age undetermined Abnormal ECG When compared with ECG of 29-NOV-2021 07:23, Anterolateral infarct is now Present Confirmed by Kieran Freeman ([id number]) on 12/17/2021 1:59:36 PM Referred By: REFERRED SELF Confirmed By:Omer Freeman
[2021-12-17] MEDS: PEPTAMEN 1.5 CAL 1,000 ML BAG PEG SCH (15:25)
[2021-12-17] MEDS: TUBE FEEDING WATER FLUSH PEG SCH ×3 (15:27→21:12)
[2021-12-17] MEDS: LORazepam 0.5 MG TAB SL PRN (21:12)
[2021-12-17] MEDS: guaiFENesin SUGAR FREE 100 MG/5 ML UDC PO PRN (21:15)
[2021-12-18] MEDS: TUBE FEEDING WATER FLUSH PEG SCH ×6 (01:30→20:35)
[2021-12-18] MEDS: PIPERACILLIN/TAZOBACTAM 3.375 GM in DEXTROSE 5% 100 ML IV SCH ×3 (04:21→20:16)
[2021-12-18] MEDS: guaiFENesin SUGAR FREE 100 MG/5 ML UDC PO PRN ×2 (04:21→20:22)
[2021-12-18] MEDS: hydrOXYzine HCl 25 MG TAB PEG PRN ×2 (04:21→12:54)
[2021-12-18] MEDS: LEVOTHYROXINE SODIUM 112 MCG TABLET PEG SCH (05:52)
[2021-12-18] MEDS: FIDAXOMICIN 200 MG TAB PO SCH ×2 (08:55→20:20)
[2021-12-18] MEDS: guaiFENesin SUGAR FREE 200 MG/10 ML UDC PEG SCH (08:55)
[2021-12-18] MEDS: LACTOBACILLUS ACIDOPHILUS 1 GM PACK PEG SCH (08:56)
[2021-12-18] MEDS: LOSARTAN POTASSIUM 50 MG TAB PEG SCH (08:56)
[2021-12-18] MEDS: LIDOCAINE 5% 1 PATCH TD SCH (08:57)
[2021-12-18] MEDS: RILUZOLE PO SCH ×2 (08:58→20:25)
[2021-12-18] MEDS: LANSOPRAZOLE 30 MG SOLTAB PEG SCH (09:00)
[2021-12-18] MEDS: D5W AND NSS 1,000 ML IV SCH (11:32)
[2021-12-18] MEDS: ONDANSETRON 4 MG OD TAB PO PRN ×2 (12:54→20:20)
[2021-12-18] MEDS ORDERED: Nursing to Pharmacy Communication SCH (16:00)
[2021-12-18] MEDS: PEPTAMEN 1.5 CAL 1,000 ML BAG PEG SCH (16:39)
[2021-12-18] MEDS: HYDROmorphone INJ 0.5 MG/0.5 ML SYR IV PRN (18:18)
--- NOTE | 2021-12-18 19:57 | Hospitalist Progress Note ---
Date of Service December 18, 2021 Assessment & Plan (1) ALS (amyotrophic lateral sclerosis): (2) Excessive oral secretions: Plan: 76 YEAR OLD WITH ALS, S/P PEG TUBE, CILD, HTN, HYPOTHYROIDISM, ETC PRESENTING FOR INCREASED SECRETIONS, EPISODES OF SHORTNESS OF BREATH. EXCESSIVE ORAL SECRETIONS LIKELY FROM ALS PROGRESSION TUBE FEEDING - KUB: 1. PEG tube projects over the stomach. 2. Air-filled loops of large and small bowel may reflect an ileus. Follow-up recommended. GI and Blow Up Operator consulted -Per GI, PEG tube in proper location, functioning appropriately -Discussed with hoop bender tank Mirta, recommend continuous tube feeding versus bolus feeding currently done at home -Continuous tube feeding resumed today All secretions significantly improved, respiratory status also improved However diarrhea recurred today Discussed with hoop bender tank, no changes with type of tube feed for now Continue with fidaxomicin Monitor closely - Suctioning q1h - PRN Glycopyrrolate Scopolamine patch - on Dilaudid PRN at home C DIFF COLITIS 4TH EPISODE -Diagnosed with C. difficile December 01, 2021 Did not respond with initial course of vancomycin, repeat course started December 13 but admitted with persistent diarrhea 20 times per day - changed Vanco PO to Fidaxomicin - diarrhea recurred today Slow improvement of diarrhea likely secondary to current treatment with antibiotics - Monitor closely Recall GI tomorrow if it still with persistent diarrhea UTI - Urine culture: Gram-negative bacilli, Enterococcus sensitive to ceftriaxone -Change Zosyn to ceftriaxone for now Follow-up urine culture Narrow spectrum and shortest duration of antibiotic will benefit patient due to C. difficile colitis CHRONIC INTERSTITIAL LUNG DISEASE - CXR: chronic L pleural effusion HYPERTENSION -continue Losartan DVT prophylaxis Heparin subcu every 12 hours Disposition Lives at home, being taken care of by her and also her daughter As per family, they still would like the patient to return home with their care when medically stable plan of care discussed with patient and her at bedside in detail and at length all questions answered they are understanding, agreeable, comfortable with the plan of care Admission and Anticipated Discharge Date Admission Date: December 16, 2021 Subjective Follow-up for increased oral secretions, ALS, C. difficile colitis, etc. Seen with at the bedside, patient sitting up in bed, comfortable, not in distress Appears brighter Minimal oral secretions noted States breathing is better, no coughing or dyspneic episodes Tube feedings restarted, continues-noted to have multiple loose bowel movements throughout the day today, around 10-15 times per RN Patient reports minimal abdominal discomfort, no fevers or chills No other symptoms Review of Systems Review of Systems: all noted and negative except for above Physical Exam Physical Exam: General- oriented x 23, not in distress, speaks in sentences with no effort or accessory muscle use Eyes- anicteric Neck- no JVD Lungs-decreased breath sounds on the left, clear on the right, no wheezing Heart- normal rate, regular rhythm; no murmurs Abdomen- normal bowel sounds, nondistended, soft, nontender PEG tube in place Extremities- no pretibial edema, no calf tenderness Neuro- alert, oriented x 3; left-sided Lower extremity weakness, no new gross focal neurologic deficits Skin- warm & dry Results & Data Results & Data ([facility]) Vital Signs (Past 12 Hours) Vital Signs Temp Pulse Resp BP Pulse Ox 12/18/21 19:09 36.4 C L 66 20 179/73 H 92 12/18/21 11:21 36.8 C 71 16 145/75 H 94 12/18/21 08:01 36.7 C 74 20 171/61 H 93 all noted and reviewed including below
[2021-12-18] MEDS: LORazepam 0.5 MG TAB SL PRN (20:22)
[2021-12-18] MEDS: CIPROFLOXACIN / D5W 400 MG/200 ML BAG IV SCH (21:43)
[2021-12-19] MEDS: TUBE FEEDING WATER FLUSH PEG SCH ×6 (02:04→20:13)
[2021-12-19] MEDS: ONDANSETRON 4 MG OD TAB PO PRN ×2 (05:00→17:24)
[2021-12-19] MEDS: LEVOTHYROXINE SODIUM 112 MCG TABLET PEG SCH (05:38)
[2021-12-19] MEDS: PROMETHAZINE HCL 12.5 MG in SODIUM CHLORIDE 0.9% 50 ML IV PRN ×2 (06:28→18:04)
[2021-12-19] MEDS: CIPROFLOXACIN / D5W 400 MG/200 ML BAG IV SCH (09:02)
[2021-12-19] MEDS: FIDAXOMICIN 200 MG TAB PO SCH ×2 (09:06→20:11)
[2021-12-19] MEDS: guaiFENesin SUGAR FREE 200 MG/10 ML UDC PEG SCH (09:06)
[2021-12-19] MEDS: RILUZOLE PO SCH ×2 (09:06→20:13)
[2021-12-19] MEDS: LACTOBACILLUS ACIDOPHILUS 1 GM PACK PEG SCH (09:07)
[2021-12-19] MEDS: LOSARTAN POTASSIUM 50 MG TAB PEG SCH (09:07)
[2021-12-19] MEDS: GLYCOPYRROLATE 1 MG TAB PO PRN (09:07)
[2021-12-19] MEDS: LIDOCAINE 5% 1 PATCH TD SCH (09:07)
[2021-12-19] MEDS: LANSOPRAZOLE 30 MG SOLTAB PEG SCH ×2 (09:08→20:12)
[2021-12-19] MEDS: PEPTAMEN 1.5 CAL 1,000 ML BAG PEG SCH (16:40)
--- NOTE | 2021-12-19 18:13 | Hospitalist Progress Note ---
Date of Service December 19, 2021 Assessment & Plan (1) ALS (amyotrophic lateral sclerosis): (2) Excessive oral secretions: Plan: 76-year-old with PMH of ALS, status post PEG tube, C. difficile, hypothyroidism, HTN, presented 12/16 for increased secretion and episodes of shortness of breath. #. EXCESSIVE ORAL SECRETIONS Likely from ALS progression versus reflux. Patient receiving tube feeding. X-ray KUB reviewed. Patient still reporting increased oral secretion, bloating sensation, sick at stomach. Increasing lansoprazole to twice daily. GI evaluated, PEG tube in proper location and functioning appropriately. Director Of Hotel Operations on board, increasing lansoprazole, recommends continuous tube feeding, appreciate recommendation. Continue with suctioning every hour, as needed glycopyrrolate, scopolamine patch, on Dilaudid as needed at home. #. C. difficile Patient has history of C. difficile, this is her fourth episode Fidaxomicin 12/16, Florastor. Patient reports improving diarrhea. Continue to monitor. Recall GI if with worsening diarrhea. #. UTI - Urine culture: Gram-negative bacilli, Enterococcus sensitive to ceftriaxone -Continue with antibiotic to complete 5 days. #. CHRONIC INTERSTITIAL LUNG DISEASE - CXR: chronic L pleural effusion #. HYPERTENSION -continue Losartan #. DVT prophylaxis: Heparin subcu every 12 hours #. Disposition Lives at home, being taken care of by her and also her daughter As per family, they still would like the patient to return home with their care when medically stable PT/OT, CM to assist with DC planning. Admission and Anticipated Discharge Date Admission Date: December 16, 2021 Subjective Patient seen and examined at bedside as a follow-up of increased oral secretion, recently diagnosed ALS, C. difficile colitis. Patient was lying in bed, on room air, NAD, no new acute events overnight. Patient reports improving diarrhea, down to 5/day, oral secretion is about the same. Patient reports feeling nauseous. Denies any pain. Patient is getting tube feed. Patient denies fever/headache/chills/chest pain/palpitations/other review of symptoms. Physical Exam Physical Exam: GENERAL: Alert and oriented x3. NAD, on RA. HEENT: No pallor, no icterus. Pupils equal, round and reactive to light. Oral mucosa moist. NECK: No JVD, no neck masses. HEART: S1 and S2 heard. Regular rate and rhythm. No murmur, no gallop. RESPIRATORY SYSTEM: Normal AP diameter. No accessory muscle use. No wheezing, no crackles. ABDOMEN: Soft, bowel sounds present, nontender, no distention. PEG tube in place. CENTRAL NERVOUS SYSTEM: No facial droop. Speech is clear. Obeys simple commands. LUE and LLE 3/5 EXTREMITIES: No edema, no erythema seen. Results & Data Results & Data ([facility]) Vital Signs (Past 12 Hours) Vital Signs Temp Pulse Pulse Resp BP Pulse Ox 12/19/21 16:30 36.6 C 70 17 164/74 H 93 12/19/21 12:26 36.6 C 70 18 138/77 93 12/19/21 08:17 36.6 C 64 19 167/73 H 91 12/19/21 07:31 63 12/19/21 06:15 149/83 H
[2021-12-19] MEDS: cefTRIAXone SODIUM 2,000 MG in DEXTROSE 5% 50 ML IV SCH (19:10)
[2021-12-19] MEDS: SACCHAROMYCES BOULARDII 250 MG CAP PO SCH (19:10)
[2021-12-19] MEDS: LORazepam 0.5 MG TAB SL PRN (20:11)
[2021-12-20] MEDS: TUBE FEEDING WATER FLUSH PEG SCH ×6 (01:36→21:34)
[2021-12-20] MEDS ORDERED: bisacodyL 10 MG SUPP PR STA (02:24)
[2021-12-20] MEDS ORDERED: ACETAMINOPHEN 1,000 MG/100 ML VIAL IV STA (02:28)
--- NOTE | 2021-12-20 03:22 | Communication Note ---
Date of Service: December 20, 2021
[2021-12-20] MEDS: LORazepam 0.5 MG TAB PO PRN (04:12)
[2021-12-20] MEDS: LEVOTHYROXINE SODIUM 112 MCG TABLET PEG SCH (05:45)
[2021-12-20 07:31] LABS: Hematocrit (blood only) 39.2 % (37-47); Hemoglobin 12.7 g/dL (12.0-16.0); Mean Corpuscular Hemoglobin 28.8 pg (25-34); Mean Corpuscular Hgb Conc 32.4 g/dL (32-36); Mean Corpuscular Volume 88.9 fL (80-100); Mean Platelet Volume 10.4 fL (7.4-10.4); Platelet Count 344 K/uL (130-400); RDW Standard Deviation 48.7 fL (36.4-46.3); Red Blood Count 4.41 M/uL (4.2-5.4); White Blood Count 7.51 K/uL (4.8-10.8)
--- NOTE | 2021-12-20 08:04 | CT Scan Report ---
CT OF THE ABDOMEN AND PELVIS WITHOUT CONTRAST CLINICAL HISTORY: Abdominal pain. COMPARISON STUDY: KUB December 16, 2021. CT of the abdomen and pelvis September 23, 2017. TECHNIQUE: Axial images of the abdomen and pelvis were obtained without IV contrast. Images were revi ewed in the axial, sagittal, and coronal planes. Automated exposure control was utilized for the kamini dy. A dose lowering technique was utilized adhering to the principles of ALARA. FINDINGS: Left chest wall deformity is noted. There is a trace left pleural effusion. Note is made of lingular and left lower lobe airspace opacity with volume loss. There is extensive mucus plugging/de bris within the left lower lobe bronchi, suboptimally assessed on this exam. Cardiomegaly is noted. E valuation of the abdomen and pelvis is suboptimal on this unenhanced exam. No pneumatosis, free air o r portal venous gas is present. Numerous hepatic lesions are similar to prior CT. These favor cysts. There is a splenule. Unenhanced images of the spleen, adrenal glands and pancreas are unremarkable. T here is no biliary ductal dilatation status post cholecystectomy. There is no hydronephrosis. There a re no urinary calculi. Gastrostomy tube is in place. Rodriguez balloon is within the bladder. Sigmoid cici stomosis is noted. This also a small bowel anastomosis. No evidence for a bowel obstruction. Appendix is not visualized. There is no lymphadenopathy or ascites. No acute fracture or suspicious lesion wi thin the visualized skeletal structures. IMPRESSION: 1. No urinary calculi or hydronephrosis. 2. Suboptimal evaluation of the abdomen and pelvis on this unenhanced exam but no acute findings. No bowel obstruction. 3. Left lower lobe and lingular opacity with volume loss. Debris/mucus plugging within left lower lob e bronchi. Aspiration cannot be excluded. ACT 112: Negative or not required by law. Electronically signed by: Bernard Villanueva M.D. 12/20/2021 8:02 AM
[2021-12-20 08:14] LABS: Calcium 9.4 mg/dl (8.5-10.1); Creatinine Clr Calc Pharmacy 90.1 ml/min; Est GFR (African American) 115.5 ml/min; Est GFR (Non-African American) 99.7 ml/min; Magnesium 1.7 mg/dl (1.7-2.4); Phosphorus 3.6 mg/dl (2.5-4.9); Potassium 3.4 mmol/L (3.5-5.1)
[2021-12-20] MEDS ORDERED: POTASSIUM CHLORIDE 20 MEQ/15 ML UDC PEG STA (08:58)
[2021-12-20] MEDS: LIDOCAINE 5% 1 PATCH TD SCH (09:04)
[2021-12-20] MEDS: guaiFENesin SUGAR FREE 200 MG/10 ML UDC PEG SCH (09:05)
[2021-12-20] MEDS: RILUZOLE PO SCH ×2 (09:05→21:32)
[2021-12-20] MEDS: LANSOPRAZOLE 30 MG SOLTAB PEG SCH ×2 (09:05→21:34)
[2021-12-20] MEDS: LOSARTAN POTASSIUM 50 MG TAB PEG SCH (09:06)
[2021-12-20] MEDS: SACCHAROMYCES BOULARDII 250 MG CAP PO SCH (09:06)
[2021-12-20] MEDS: FIDAXOMICIN 200 MG TAB PO SCH ×2 (09:16→21:44)
[2021-12-20] MEDS: ONDANSETRON 4 MG OD TAB PO PRN (09:35)
[2021-12-20] MEDS: MAGNESIUM SULFATE / D5W 1 GM/100 ML BAG IV SCH ×2 (09:35→11:39)
[2021-12-20] MEDS: PEPTAMEN 1.5 CAL 1,000 ML BAG PEG SCH (14:53)
[2021-12-20] MEDS: GLYCOPYRROLATE 1 MG TAB PO PRN (16:36)
[2021-12-20] MEDS: guaiFENesin SUGAR FREE 100 MG/5 ML UDC PO PRN (16:47)
--- NOTE | 2021-12-20 16:52 | Hospitalist Progress Note ---
Date of Service December 20, 2021 Assessment & Plan (1) ALS (amyotrophic lateral sclerosis): (2) Excessive oral secretions: Plan: 76-year-old with PMH of ALS, status post PEG tube, C. difficile, hypothyroidism, HTN, presented 12/16 for increased secretion and episodes of shortness of breath. #. EXCESSIVE ORAL SECRETIONS Likely from ALS progression versus reflux. Patient receiving tube feeding. X-ray KUB reviewed. Patient had increased oral secretion and shortness of breath 12/19 evening, tube feed was stopped 12/20 patient reports improving nausea, bloating sensation, sick at stomach. Lansoprazole twice daily, resume tube feed at low rate, Pepcid if needed. GI evaluated, PEG tube in proper location and functioning appropriately. Sales Representative [employer] on board, recommends continuous tube feeding, appreciate recommendation. Continue with suctioning every hour, as needed glycopyrrolate, scopolamine patch, on Dilaudid as needed at home. #. C. difficile Patient has history of C. difficile, this is her fourth episode Fidaxomicin 12/16, Florastor. Patient reports improving diarrhea, none since yesterday morning. Continue to monitor. Recall GI if with worsening diarrhea. #. UTI - Urine culture: Gram-negative bacilli, Enterococcus sensitive to ceftriaxone -Continue with antibiotic to complete 5 days. #. CHRONIC INTERSTITIAL LUNG DISEASE - CXR: chronic L pleural effusion #. HYPERTENSION -continue Losartan #. DVT prophylaxis: Heparin subcu every 12 hours #. Disposition Lives at home, being taken care of by her and also her daughter As per family, they still would like the patient to return home with their care when medically stable PT/OT, CM to assist with DC planning. 12/20: Patient's Ghulam was updated at bedside, they are in touch with palliative care as an outpatient and plan to follow-up with them. Answered all his questions, he voiced understanding and was agreeable to the plan of care. Admission and Anticipated Discharge Date Admission Date: December 16, 2021 Subjective Patient seen and examined at bedside as a follow-up of increased oral secretion, recently diagnosed ALS, C. difficile colitis. Patient was lying in bed, on room air, NAD, no new acute events overnight. Patient reports improving diarrhea, none since yesterday morning, patient had increased oral secretion and some SOB yesterday evening and her tube feed was stopped and lansoprazole dose was increased in frequency, oral secretion has decreased today. Resuming tube feed at low rate. Patient reports improving feeling of nausea or sick at stomach. Denies any pain. Patient is getting tube feed. Patient denies fever/headache/chills/chest pain/palpitations/other review of symptoms. Physical Exam Physical Exam: GENERAL: Alert and oriented x3. NAD, on RA. HEENT: No pallor, no icterus. Pupils equal, round and reactive to light. Oral mucosa moist. NECK: No JVD, no neck masses. HEART: S1 and S2 heard. Regular rate and rhythm. No murmur, no gallop. RESPIRATORY SYSTEM: Normal AP diameter. No accessory muscle use. No wheezing, no crackles. ABDOMEN: Soft, bowel sounds present, nontender, no distention. PEG tube in place. CENTRAL NERVOUS SYSTEM: No facial droop. Speech is clear. Obeys simple commands. LUE and LLE 3/5 EXTREMITIES: No edema, no erythema seen. Results & Data Results & Data ([facility]) Vital Signs (Past 12 Hours) Vital Signs Temp Pulse Pulse Resp BP Pulse Ox 12/20/21 16:00 16 92 12/20/21 12:00 18 93 12/20/21 11:25 36.8 C 66 19 163/76 H 90 12/20/21 08:00 18 93 12/20/21 07:55 36.8 C 72 18 176/79 H 93 12/20/21 06:15 65
[2021-12-20] MEDS: HYDROmorphone INJ 0.5 MG/0.5 ML SYR IV PRN ×2 (17:28→21:43)
[2021-12-20] MEDS: PROMETHAZINE HCL 12.5 MG in SODIUM CHLORIDE 0.9% 50 ML IV PRN (17:44)
[2021-12-20] MEDS: LORazepam 0.5 MG TAB SL PRN (21:43)
[2021-12-20] MEDS: cefTRIAXone SODIUM 2,000 MG in DEXTROSE 5% 50 ML IV SCH (21:55)
[2021-12-21] MEDS: TUBE FEEDING WATER FLUSH PEG SCH ×6 (01:42→20:50)
[2021-12-21] MEDS: LEVOTHYROXINE SODIUM 112 MCG TABLET PEG SCH (05:32)
[2021-12-21 07:52] LABS: BUN Creatinine Ratio 27.7 (10-20); Calcium 9.4 mg/dl (8.5-10.1); Creatinine Clr Calc Pharmacy 78.7 ml/min; Est GFR (African American) 110.4 ml/min; Est GFR (Non-African American) 95.3 ml/min; Magnesium 2.1 mg/dl (1.7-2.4); Potassium 3.7 mmol/L (3.5-5.1)
[2021-12-21] MEDS: LANSOPRAZOLE 30 MG SOLTAB PEG SCH ×2 (08:59→20:50)
[2021-12-21] MEDS: LIDOCAINE 5% 1 PATCH TD SCH (09:00)
[2021-12-21] MEDS: FIDAXOMICIN 200 MG TAB PO SCH ×2 (09:10→20:49)
[2021-12-21] MEDS: guaiFENesin SUGAR FREE 200 MG/10 ML UDC PEG SCH (09:10)
[2021-12-21] MEDS: LOSARTAN POTASSIUM 50 MG TAB PEG SCH (09:11)
[2021-12-21] MEDS: RILUZOLE PO SCH ×2 (09:11→20:50)
[2021-12-21] MEDS: SACCHAROMYCES BOULARDII 250 MG CAP PO SCH (09:12)
[2021-12-21] MEDS: PROMETHAZINE HCL 12.5 MG in SODIUM CHLORIDE 0.9% 50 ML IV PRN ×3 (10:24→19:16)
[2021-12-21] MEDS: FAMOTIDINE 20 MG TAB OG SCH ×2 (13:09→20:53)
[2021-12-21] MEDS: GLYCOPYRROLATE 1 MG TAB PO PRN ×2 (13:09→20:56)
[2021-12-21] MEDS: PEPTAMEN 1.5 CAL 1,000 ML BAG PEG SCH (15:44)
[2021-12-21] MEDS: guaiFENesin SUGAR FREE 100 MG/5 ML UDC PO PRN (15:51)
[2021-12-21] MEDS: LORazepam 0.5 MG TAB PO PRN (15:51)
--- NOTE | 2021-12-21 16:55 | Hospitalist Progress Note ---
Date of Service December 21, 2021 Assessment & Plan (1) ALS (amyotrophic lateral sclerosis): (2) Excessive oral secretions: Plan: 76-year-old with PMH of ALS, status post PEG tube, C. difficile, hypothyroidism, HTN, presented 12/16 for increased secretion and episodes of shortness of breath. #. EXCESSIVE ORAL SECRETIONS Likely from ALS progression versus reflux. Patient receiving tube feeding. X-ray KUB reviewed. Patient had increased oral secretion and shortness of breath 12/19 evening, tube feed was stopped 12/20 patient reports improving nausea, bloating sensation, sick at stomach. Lansoprazole twice daily, resume tube feed at low rate, Pepcid added GI evaluated, PEG tube in proper location and functioning appropriately. Property Controller on board, recommends continuous tube feeding, appreciate recommendation. Continue with suctioning every hour, as needed glycopyrrolate, scopolamine patch, on Dilaudid as needed at home. #. C. difficile Patient has history of C. difficile, this is her fourth episode Fidaxomicin 12/16, Florastor. Patient reports improving diarrhea. Continue to monitor. Recall GI if with worsening diarrhea. #. UTI - Urine culture: Gram-negative bacilli, Enterococcus sensitive to ceftriaxone -s/p antibiotic #. CHRONIC INTERSTITIAL LUNG DISEASE - CXR: chronic L pleural effusion #. HYPERTENSION -continue Losartan #. DVT prophylaxis: Heparin subcu every 12 hours #. Disposition Lives at home, being taken care of by her and also her daughter As per family, they still would like the patient to return home with their care when medically stable PT/OT, CM to assist with DC planning. 12/20: Patient's Ghulam was updated at bedside, they are in touch with palliative care as an outpatient and plan to follow-up with them. Answered all his questions, he voiced understanding and was agreeable to the plan of care. 12/21: Pt's and Dtr updated at bedside. they say they have palliative care as OP. They would like to talk with palliative care in house as well and may likely want to touch regarding hospice care for the patient. Disposition: Palliative to eval. to be decided. Family wants patient to be at home. Admission and Anticipated Discharge Date Admission Date: December 16, 2021 Subjective Patient seen and examined at bedside as a follow-up of increased oral secretion, recently diagnosed ALS, C. difficile colitis. Patient was lying in bed, on room air, NAD, no new acute events overnight. Patient reports improving diarrhea, patient's tube feeding was resumed yesterday, patient reports having increased oral secretion and signs and symptoms of reflux. Lansoprazole was made twice daily 1 days ago, will add Pepcid. Continue tube feed at low rate. Denies any pain. Patient is getting tube feed. Patient denies fever/headache/chills/chest pain/palpitations/other review of symptoms. Physical Exam Physical Exam: GENERAL: Alert and oriented x3. NAD, on RA. HEENT: No pallor, no icterus. Pupils equal, round and reactive to light. Oral mucosa moist. NECK: No JVD, no neck masses. HEART: S1 and S2 heard. Regular rate and rhythm. No murmur, no gallop. RESPIRATORY SYSTEM: Normal AP diameter. No accessory muscle use. No wheezing, no crackles. ABDOMEN: Soft, bowel sounds present, nontender, no distention. PEG tube in place. CENTRAL NERVOUS SYSTEM: No facial droop. Speech is clear. Obeys simple commands. LUE and LLE 3/5 EXTREMITIES: No edema, no erythema seen. Results & Data Results & Data ([facility]) Vital Signs (Past 12 Hours) Vital Signs Temp Pulse Pulse Resp BP Pulse Ox 12/21/21 15:03 36.4 C L 76 16 156/64 H 91 12/21/21 15:00 72 12/21/21 11:40 36.5 C 69 20 171/78 H 91 12/21/21 07:48 36.1 C L 63 20 138/65 91 12/21/21 07:13 56 L
[2021-12-21] MEDS: hydrOXYzine HCl 25 MG TAB PEG PRN (20:49)
[2021-12-21] MEDS: LORazepam 0.5 MG TAB SL PRN (22:21)
[2021-12-22] MEDS: TUBE FEEDING WATER FLUSH PEG SCH ×6 (00:28→20:57)
[2021-12-22] MEDS: HYDROmorphone INJ 0.5 MG/0.5 ML SYR IV PRN ×2 (00:51→20:39)
[2021-12-22] MEDS: guaiFENesin SUGAR FREE 100 MG/5 ML UDC PO PRN ×3 (00:51→20:38)
[2021-12-22] MEDS ORDERED: ALBUT/IPRATROP 3MG/0.5MG NEB 3 ML VIAL NEB STA (01:13)
[2021-12-22] MEDS ORDERED: AMPICILLIN/SULBACTAM SOD 3,000 MG in 0.9 % SODIUM CHLORIDE 100 ML IV STA (01:45)
--- NOTE | 2021-12-22 01:46 | Communication Note ---
Date of Service: December 22, 2021 Patient having a hard time breathing as per RN. Mucus stuck in throat. Weak ineffective cough. O2 sats 88 on room air as per RN. Chest x-ray as per my interpretation : Atelectasis, interstitial infiltrates, left pleural effusion AP Hypoxemic respiratory failure Possible aspiration pneumonitis Unasyn Solu-Medrol 1 dose, neb treatment now given hypoxemia Will relay to AM provider.
[2021-12-22] MEDS ORDERED: methylPREDNISolone 20 MG in SYRINGE 0 ML IV STA (01:48)
[2021-12-22] MEDS ORDERED: AMPICILLIN/SULBACTAM CONSULT ACTIVE PRN (01:49)
[2021-12-22] MEDS ORDERED: ALBUT/IPRATROP 3MG/0.5MG NEB 3 ML VIAL NEB PRN (05:30)
[2021-12-22 06:26] LABS: Hematocrit (blood only) 40.9 % (37-47); Hemoglobin 13.4 g/dL (12.0-16.0); Mean Corpuscular Hemoglobin 29.8 pg (25-34); Mean Corpuscular Hgb Conc 32.8 g/dL (32-36); Mean Corpuscular Volume 90.9 fL (80-100); Mean Platelet Volume 10.3 fL (7.4-10.4); Platelet Count 353 K/uL (130-400); RDW Coefficient of Variation 15.1 % (11.5-14.5); RDW Standard Deviation 50.3 fL (36.4-46.3); White Blood Count 9.18 K/uL (4.8-10.8)
[2021-12-22 06:59] LABS: BUN Creatinine Ratio 30.6 (10-20); Calcium 9.4 mg/dl (8.5-10.1); Creatinine Clr Calc Pharmacy 75.7 ml/min; Est GFR (African American) 108.9 ml/min; Phosphorus 4.5 mg/dl (2.5-4.9); Potassium 4.2 mmol/L (3.5-5.1)
[2021-12-22] MEDS: ALBUT/IPRATROP 3MG/0.5MG NEB 3 ML VIAL NEB SCH ×4 (07:37→19:19)
[2021-12-22] MEDS: PROMETHAZINE HCL 12.5 MG in SODIUM CHLORIDE 0.9% 50 ML IV PRN (08:12)
[2021-12-22] MEDS: FIDAXOMICIN 200 MG TAB PO SCH ×2 (08:19→20:39)
[2021-12-22] MEDS: guaiFENesin SUGAR FREE 200 MG/10 ML UDC PEG SCH (08:19)
[2021-12-22] MEDS: LANSOPRAZOLE 30 MG SOLTAB PEG SCH ×2 (08:19→20:39)
[2021-12-22] MEDS: FAMOTIDINE 20 MG TAB OG SCH ×2 (08:19→20:39)
[2021-12-22] MEDS: LEVOTHYROXINE SODIUM 112 MCG TABLET PEG SCH (08:19)
[2021-12-22] MEDS: GLYCOPYRROLATE 1 MG TAB PO PRN ×2 (08:20→17:45)
[2021-12-22] MEDS: SACCHAROMYCES BOULARDII 250 MG CAP PO SCH (08:20)
[2021-12-22] MEDS: LOSARTAN POTASSIUM 50 MG TAB PEG SCH (08:20)
[2021-12-22] MEDS: RILUZOLE PO SCH ×2 (08:20→20:38)
[2021-12-22] MEDS: LORazepam 0.5 MG TAB PO PRN ×2 (08:27→20:39)
[2021-12-22] MEDS: AMPICILLIN/SULBACTAM SOD 3,000 MG in 0.9 % SODIUM CHLORIDE 100 ML IV SCH ×3 (08:39→20:39)
[2021-12-22] MEDS: LIDOCAINE 5% 1 PATCH TD SCH (08:39)
--- NOTE | 2021-12-22 11:01 | XRay Report ---
XR chest 1V portable CLINICAL HISTORY: Cough low o2 COMPARISON STUDY: Chest radiograph December 16, 2021. FINDINGS: There is no pneumothorax. Left lower lung airspace opacity has increased. Increasing associ ated volume loss is noted. This favors left lower lobe collapse. There is a small left pleural effusi on. Pulmonary vascular congestion has slightly increased. Postoperative findings with the spine are i ncidentally noted. IMPRESSION: 1. Increase in left lower lung airspace opacity with volume loss. This favors left lower lobe collaps e. 2. Small left pleural effusion. 3. Pulmonary vascular congestion. No overt pulmonary edema. ACT 112: Negative or not required by law. Electronically signed by: Bernard Villanueva M.D. 12/22/2021 11:00 AM
[2021-12-22] MEDS: CALCIUM CARBONATE 500 MG CHEWABLE TAB PO SCH ×2 (11:56→20:38)
[2021-12-22] MEDS: SUCRALFATE 1 GM/10 ML UDC PO SCH ×3 (11:57→20:57)
--- NOTE | 2021-12-22 15:17 | Hospitalist Progress Note ---
Date of Service December 22, 2021 Assessment & Plan (1) ALS (amyotrophic lateral sclerosis): (2) Excessive oral secretions: Plan: 76-year-old with PMH of ALS, status post PEG tube, C. difficile, hypothyroidism, HTN, presented 12/16 for increased secretion and episodes of shortness of breath. #. EXCESSIVE ORAL SECRETIONS #. Concern of Aspiration Pna: Pt needed O2, R> L basal crackles, on unasyn 12/22 Likely from ALS progression versus reflux. Patient receiving tube feeding. X-ray KUB reviewed. Patient had increased oral secretion and shortness of breath 12/19 evening, tube feed was stopped 12/20 patient reports improving nausea, bloating sensation, sick at stomach. c/w lansoprazole BD, pepcid, BD, sucralfate QID and tums TID. resume tube feed at low rate, monitor for her heartburn S/S. GI evaluated, PEG tube in proper location and functioning appropriately. Corporate Executive Chef on board, recommends continuous tube feeding, appreciate recommendation. Continue with suctioning every hour, as needed glycopyrrolate, scopolamine patch, on Dilaudid as needed at home. Gycopyrrolate/scopolamine can be held when secretions are thicker. #. C. difficile Patient has history of C. difficile, this is her fourth episode Fidaxomicin 12/16, Florastor. Patient reports improving diarrhea. Continue to monitor. Recall GI if with worsening diarrhea. #. UTI - Urine culture: Gram-negative bacilli, Enterococcus sensitive to ceftriaxone -s/p antibiotic #. CHRONIC INTERSTITIAL LUNG DISEASE - CXR: chronic L pleural effusion #. HYPERTENSION -continue Losartan #. DVT prophylaxis: Heparin subcu every 12 hours #. Disposition Lives at home, being taken care of by her and also her daughter As per family, they still would like the patient to return home with their care when medically stable PT/OT, CM to assist with DC planning. 12/20: Patient's Ghulam was updated at bedside, they are in touch with palliative care as an outpatient and plan to follow-up with them. Answered all his questions, he voiced understanding and was agreeable to the plan of care. 12/21: Pt's and Dtr updated at bedside. they say they have palliative care as OP. They would like to talk with palliative care in house as well and may likely want to touch regarding hospice care for the patient. 12/22: Pt's family updated over the phone and at bedside. Disposition: Palliative to eval. to be decided. Family wants patient to be at home. Admission and Anticipated Discharge Date Admission Date: December 16, 2021 Subjective Patient seen and examined at bedside as a follow-up of increased oral secretion, recently diagnosed ALS, C. difficile colitis. Patient was lying in bed, on room air, NAD, overnight pt was SOB and Unasyn was started for concern of aspiration Pna. Patient reports improving diarrhea, pt maximized on possible reflux/gastritis treatment, tube feed to resume at lower rate per patient's comfort rather than not have it at all. Continue tube feed at low rate. Denies any pain. Patient denies fever/headache/chills/chest pain/palpitations/other review of symptoms. Physical Exam Physical Exam: GENERAL: Alert and oriented x3. NAD, on RA. HEENT: No pallor, no icterus. Pupils equal, round and reactive to light. Oral mucosa moist. NECK: No JVD, no neck masses. HEART: S1 and S2 heard. Regular rate and rhythm. No murmur, no gallop. RESPIRATORY SYSTEM: Normal AP diameter. No accessory muscle use. No wheezing, no crackles. ABDOMEN: Soft, bowel sounds present, nontender, no distention. PEG tube in place. CENTRAL NERVOUS SYSTEM: No facial droop. Speech is clear. Obeys simple commands. LUE and LLE 3/5 EXTREMITIES: No edema, no erythema seen. Results & Data Results & Data ([facility]) Vital Signs (Past 12 Hours) Vital Signs Temp Pulse Resp BP Pulse Ox 12/22/21 11:45 36.5 C 94 H 18 166/88 H 94 12/22/21 11:06 87 20 96 12/22/21 07:52 36.5 C 81 20 150/51 H 95 12/22/21 07:38 76 20 96 12/22/21 04:39 36.3 C L 72 20 148/65 H 91
[2021-12-22] MEDS: LORazepam 0.5 MG TAB SL PRN (20:39)
[2021-12-23] MEDS: HYDROmorphone INJ 0.5 MG/0.5 ML SYR IV PRN ×3 (01:32→21:29)
[2021-12-23] MEDS: LORazepam 0.5 MG TAB PO PRN ×2 (01:32→16:55)
[2021-12-23] MEDS: TUBE FEEDING WATER FLUSH PEG SCH ×6 (02:46→21:29)
[2021-12-23] MEDS: AMPICILLIN/SULBACTAM SOD 3,000 MG in 0.9 % SODIUM CHLORIDE 100 ML IV SCH ×3 (03:00→13:34)
[2021-12-23] MEDS: CALCIUM CARBONATE 500 MG CHEWABLE TAB PO SCH ×3 (04:01→18:58)
[2021-12-23] MEDS: ALBUT/IPRATROP 3MG/0.5MG NEB 3 ML VIAL NEB SCH ×4 (07:15→19:18)
[2021-12-23 07:21] LABS: Hematocrit (blood only) 36.9 % (37-47); Hemoglobin 11.9 g/dL (12.0-16.0); Mean Corpuscular Hemoglobin 29.7 pg (25-34); Mean Corpuscular Hgb Conc 32.2 g/dL (32-36); Platelet Count 326 K/uL (130-400); RDW Coefficient of Variation 15.3 % (11.5-14.5); RDW Standard Deviation 52.4 fL (36.4-46.3); Red Blood Count 4.01 M/uL (4.2-5.4); White Blood Count 8.75 K/uL (4.8-10.8)
[2021-12-23 07:43] LABS: Calcium 8.8 mg/dl (8.5-10.1); Creatinine Clr Calc Pharmacy 74.8 ml/min; Est GFR (African American) 108.2 ml/min; Est GFR (Non-African American) 93.4 ml/min; Magnesium 1.8 mg/dl (1.7-2.4); Potassium 3.4 mmol/L (3.5-5.1)
[2021-12-23] MEDS ORDERED: POTASSIUM CHLORIDE 20 MEQ/15 ML UDC PO STA (08:47)
[2021-12-23] MEDS ORDERED: MAGNESIUM SULFATE / D5W 1 GM/100 ML BAG IV ONE (09:00)
[2021-12-23] MEDS: LEVOTHYROXINE SODIUM 112 MCG TABLET PEG SCH (10:24)
[2021-12-23] MEDS: guaiFENesin SUGAR FREE 200 MG/10 ML UDC PEG SCH (10:24)
[2021-12-23] MEDS: FIDAXOMICIN 200 MG TAB PO SCH ×2 (10:24→20:34)
[2021-12-23] MEDS: FAMOTIDINE 20 MG TAB OG SCH ×2 (10:24→20:34)
[2021-12-23] MEDS: RILUZOLE PO SCH ×2 (10:25→20:35)
[2021-12-23] MEDS: LANSOPRAZOLE 30 MG SOLTAB PEG SCH ×2 (10:25→20:34)
[2021-12-23] MEDS: LOSARTAN POTASSIUM 50 MG TAB PEG SCH (10:25)
[2021-12-23] MEDS: SACCHAROMYCES BOULARDII 250 MG CAP PO SCH (10:26)
[2021-12-23] MEDS: SUCRALFATE 1 GM/10 ML UDC PO SCH ×4 (10:26→20:33)
[2021-12-23] MEDS: LIDOCAINE 5% 1 PATCH TD SCH (10:37)
[2021-12-23] MEDS: PROMETHAZINE HCL 12.5 MG in SODIUM CHLORIDE 0.9% 50 ML IV PRN (11:40)
[2021-12-23] MEDS: guaiFENesin SUGAR FREE 100 MG/5 ML UDC PO PRN (12:50)
[2021-12-23] MEDS ORDERED: ALUMINUM/MAGNESIUM SUSP 30 ML UDC PO STA (16:02)
--- NOTE | 2021-12-23 16:09 | Hospitalist Progress Note ---
Date of Service December 23, 2021 Assessment & Plan (1) ALS (amyotrophic lateral sclerosis): (2) Excessive oral secretions: Plan: 76-year-old with PMH of ALS, status post PEG tube, C. difficile, hypothyroidism, HTN, presented 12/16 for increased secretion and episodes of shortness of breath. #. EXCESSIVE ORAL SECRETIONS #. Concern of Aspiration Pna: Pt needed O2, R> L basal crackles, on unasyn 12/22 --> DC'd 12/23 after discussing with patient and her family as it exacerbating her C.diff who are in agreement. Likely from ALS progression versus reflux. Patient receiving tube feeding. X-ray KUB reviewed. Patient had increased oral secretion and shortness of breath 12/19 evening, tube feed was stopped 12/20 patient reports improving nausea, bloating sensation, sick at stomach. c/w lansoprazole BD, pepcid, BD, sucralfate QID and tums TID. resume tube feed at low rate, still w/ heartburn s/s, maalox added to see if it helps, GI tomorrow. change tube feed tomorrow. GI evaluated, PEG tube in proper location and functioning appropriately. Pattern Vault Clerk on board, recommends continuous tube feeding, appreciate recommendation. Continue with suctioning every hour, as needed glycopyrrolate, scopolamine patch, on Dilaudid as needed at home. Gycopyrrolate/scopolamine can be held when secretions are thicker. #. C. difficile Patient has history of C. difficile, this is her fourth episode Fidaxomicin 12/16, Florastor. Diarrhea worsening again, likely patient was started on unasyn for aspiration pna. Recall GI tomorrow. #. UTI - Urine culture: Gram-negative bacilli, Enterococcus sensitive to ceftriaxone -s/p antibiotic #. CHRONIC INTERSTITIAL LUNG DISEASE - CXR: chronic L pleural effusion #. HYPERTENSION -continue Losartan #. DVT prophylaxis: Heparin subcu every 12 hours #. Disposition Lives at home, being taken care of by her and also her daughter As per family, they still would like the patient to return home with their care when medically stable PT/OT, CM to assist with DC planning. 12/20: Patient's Ghulam was updated at bedside, they are in touch with palliative care as an outpatient and plan to follow-up with them. Answered all his questions, he voiced understanding and was agreeable to the plan of care. 12/21: Pt's and Dtr updated at bedside. they say they have palliative care as OP. They would like to talk with palliative care in house as well and may likely want to touch regarding hospice care for the patient. 12/22: Pt's family updated over the phone and at bedside. 12/23: Pt's family updated at bedside. Disposition: Palliative to eval. to be decided. Family wants patient to be at home. Admission and Anticipated Discharge Date Admission Date: December 16, 2021 Subjective Patient seen and examined at bedside as a follow-up of increased oral secretion, recently diagnosed ALS, C. difficile colitis. Patient was lying in bed, on room air, NAD, pt had multiple diarrhea today per RN, still feels nauseated and has heartburn. Will need tube feed type changed to see if that helps. . Continue tube feed at low rate for now. Denies any pain. Patient denies fever/headache/chills/chest pain/palpitations/other review of symptoms. Physical Exam Physical Exam: GENERAL: Alert and oriented x3. NAD, on RA. HEENT: No pallor, no icterus. Pupils equal, round and reactive to light. Oral mucosa moist. NECK: No JVD, no neck masses. HEART: S1 and S2 heard. Regular rate and rhythm. No murmur, no gallop. RESPIRATORY SYSTEM: Normal AP diameter. No accessory muscle use. No wheezing, no crackles. ABDOMEN: Soft, bowel sounds present, nontender, no distention. PEG tube in place. CENTRAL NERVOUS SYSTEM: No facial droop. Speech is clear. Obeys simple commands. LUE and LLE 3/5 EXTREMITIES: No edema, no erythema seen. Results & Data Results & Data ([facility]) Vital Signs (Past 12 Hours) Vital Signs Temp Pulse Pulse Resp BP Pulse Ox 12/23/21 15:24 63 18 91 12/23/21 11:13 36.6 C 67 18 136/77 91 12/23/21 07:00 36.6 C 71 18 131/66 92 12/23/21 04:09 81
[2021-12-23] MEDS: PEPTAMEN 1.5 CAL 1,000 ML BAG PEG SCH (18:55)
[2021-12-23] MEDS: ONDANSETRON 4 MG OD TAB PO PRN (20:33)
[2021-12-24] MEDS: TUBE FEEDING WATER FLUSH PEG SCH ×6 (00:34→20:36)
[2021-12-24] MEDS: CALCIUM CARBONATE 500 MG CHEWABLE TAB PO SCH ×3 (03:23→18:25)
[2021-12-24] MEDS: LEVOTHYROXINE SODIUM 112 MCG TABLET PEG SCH (05:34)
[2021-12-24] MEDS: ALBUT/IPRATROP 3MG/0.5MG NEB 3 ML VIAL NEB SCH ×4 (06:48→18:55)
[2021-12-24 06:57] LABS: Hematocrit (blood only) 39.5 % (37-47); Hemoglobin 12.5 g/dL (12.0-16.0); Mean Corpuscular Hemoglobin 29.1 pg (25-34); Mean Corpuscular Hgb Conc 31.6 g/dL (32-36); Mean Corpuscular Volume 92.1 fL (80-100); Mean Platelet Volume 10.1 fL (7.4-10.4); Platelet Count 348 K/uL (130-400); RDW Coefficient of Variation 15.5 % (11.5-14.5); RDW Standard Deviation 52.4 fL (36.4-46.3); Red Blood Count 4.29 M/uL (4.2-5.4); White Blood Count 7.47 K/uL (4.8-10.8)
[2021-12-24 07:14] LABS: BUN Creatinine Ratio 28.6 (10-20); Est GFR (African American) 108.9 ml/min; Phosphorus 3.1 mg/dl (2.5-4.9); Potassium 3.9 mmol/L (3.5-5.1)
[2021-12-24] MEDS: FAMOTIDINE 20 MG TAB OG SCH ×2 (07:59→20:00)
[2021-12-24] MEDS: LORazepam 0.5 MG TAB PO PRN ×2 (07:59→20:00)
[2021-12-24] MEDS: ONDANSETRON 4 MG OD TAB PO PRN (07:59)
[2021-12-24] MEDS: FIDAXOMICIN 200 MG TAB PO SCH ×2 (08:59→20:00)
[2021-12-24] MEDS: SUCRALFATE 1 GM/10 ML UDC PO SCH ×4 (09:00→20:00)
[2021-12-24] MEDS: guaiFENesin SUGAR FREE 200 MG/10 ML UDC PEG SCH (09:00)
[2021-12-24] MEDS: LANSOPRAZOLE 30 MG SOLTAB PEG SCH ×2 (09:01→20:00)
[2021-12-24] MEDS: SACCHAROMYCES BOULARDII 250 MG CAP PO SCH (09:02)
[2021-12-24] MEDS: GLYCOPYRROLATE 1 MG TAB PO PRN (09:03)
[2021-12-24] MEDS: LOSARTAN POTASSIUM 50 MG TAB PEG SCH (09:03)
[2021-12-24] MEDS: RILUZOLE PO SCH ×2 (09:04→20:00)
[2021-12-24] MEDS: LIDOCAINE 5% 1 PATCH TD SCH (09:12)
[2021-12-24] MEDS: HYDROmorphone INJ 0.5 MG/0.5 ML SYR IV PRN ×2 (10:11→20:13)
[2021-12-24] MEDS: FIBERSOURCE HN 1.2 CAL 1000 ML BAG GT SCH (11:48)
[2021-12-24] MEDS ORDERED: haloperidoL 0.5 MG TAB PO PRN (13:54)
--- NOTE | 2021-12-24 14:54 | Palliative Care Consultation ---
Date of Consultation December 24, 2021 Assessment & Plan (1) Palliative care encounter: Mr. Quinn is a 76 year old with ALS, s/p Peg placement, HTN, hypothyroidism, and chronic infiltrative lung disease who presented to the [facility] with increased secretions and shortness of breath. The increased secretions are likely from ALS progression. This patient has been followed by [facility] in [place]. Palliative Medicine was consulted to discuss overall goals of care. I met with the patient in her room. She was sitting upright in her hospital bed and an RN was administering medications. She was able to answer some simple yes/no questions for me and appeared to be alert and oriented. I was able to reach out to her , Ghulam, and talked with him at length on the phone over two separate occasions, with the second occasion including their daughter, Shae. Up to this point, Elizabeth has been receiving Home Health Services through [facility]; however, feels that her ALS is progressing. She is no longer tolerating tube feedings, has even more increased secretions and now has intractable nausea and diarrhea. Her tube feeding has been switched from Petptomen to Fibersource which has helped her symptoms. The family is considering their options regarding home health vs palliative medicine vs hospice. We discussed the differences between the three. While the patient has been seen by palliative medicine recently through [place], no home based option available. Additionally, the patients daughter did indicate that she would like the hospice service to be relatively close by as she thinks she may 'panic' should her mother be acutely struggling with her secretions. A alvarado important factor to them is to continue tube feedings and have a few sessions through speech therapy. [facility] over the weekend spoke with them and it was indicated that they could accomodate. We also discussed GIP and respite hospice. Should the patient's symptoms not be fully managed, would entertain her being admitted under GIP hospice until ready for discharge. Palliative will follow. (2) ALS (amyotrophic lateral sclerosis): (3) Diarrhea: C-diff positive. Recommend holding tube feedings. Riluzole for her ALS could be a contributing factor. May have to discontinue if the patient/family proceed with hospice. (4) Excessive oral secretions: Self suctioning Has Glycopyrrolate 0.2 mg PO TID PRN. Per discussion with Dr. Wells with [facility] who has seen her in the past, the [facility] spokesperson in [place], indicated that scheduled Robinul could make her secretions too stringy. Also on a Scopalamine patch PRN , which I think could be beneficial to schedule. (5) Nausea: Scheduled Routine Zofran 4 mg SL Q6 Haldol 2.5 mg SL Q8 PRN for intractable terminal nausea TF goal is 40 mL/hour, have been intermittently tolerating TF at 20mL, had to decrease to 10mL/hour. History of Present Illness Reason for Consultation: Goals of care Requesting Physician: Dr. Rosen Attending Physician: Torres Rosen MD History of Present Illness Mr. Quinn is a 76 year old with ALS, s/p Peg placement, HTN, hypothyroidism, and chronic infiltrative lung disease who presented to the [facility] with increased secretions and shortness of breath. The increased secretions are likely from ALS progression. This patient has been followed by [facility] in [place]. Palliative Medicine was consulted to discuss overall goals of care. Please see AP for further details. Thanks for involving Palliative Medicine with this individual. Allergies Allergy/AdvReac Type Severity Reaction Status Date / Time Iodinated Contrast Media Allergy Severe dyspnea Verified 12/16/21 15:45 azithromycin Allergy Intermediate rash Verified 12/16/21 15:45 cefaclor Allergy Intermediate hives Verified 12/16/21 15:45 erythromycin base Allergy Intermediate hives Verified 12/16/21 15:45 levalbuterol Allergy Intermediate chest pain Verified 11/29/21 08:45 minocycline Allergy Intermediate rash Verified 12/16/21 15:45 nitrofurantoin Allergy Intermediate possible Verified 12/16/21 15:45 hives or dyspnea phenazopyridine Allergy Intermediate dyspnea Verified 12/16/21 15:45 Sulfa (Sulfonamide Allergy Intermediate hives Verified 12/16/21 15:45 Antibiotics) oxycodone [From OxyContin] Allergy Unknown Unverified 12/16/21 15:52 metronidazole AdvReac Intermediate GI symptoms Verified 11/29/21 08:45 morphine AdvReac Intermediate vomiting Verified 11/29/21 08:45 levofloxacin AdvReac Mild abdominal Verified 12/16/21 15:45 pain albuterol [From Ventolin HFA] AdvReac Chest Pain Unverified 12/16/21 15:52 iodine AdvReac Anaphylaxis Unverified 12/16/21 15:52 tramadol AdvReac Confusion Unverified 12/16/21 15:52 Home Medications Medication Instructions Recorded Confirmed Type lansoprazole 30 mg delayed 30 mg FEEDING TUBE QAM 07/08/19 12/16/21 History release,disintegrating tablet lorazepam 0.5 mg tablet 1 mg PO HS PRN 07/08/19 12/16/21 History losartan 50 mg tablet 100 mg FEEDING TUBE QAM 07/08/19 12/16/21 History lidocaine 5 % topical patch 1 patch TOPICAL DAILY 07/22/21 12/16/21 History glycopyrrolate 2 mg tablet 2 mg PO TID 11/22/21 12/16/21 History hydroxyzine HCl 25 mg tablet 25 mg FEEDING TUBE TID PRN 11/22/21 12/16/21 History ipratropium 0.5 mg-albuterol 3 mg 3 ml INHALATION Q6H PRN 11/22/21 12/16/21 History (2.5 mg base)/3 mL nebulization soln levothyroxine 112 mcg tablet 112 mcg FEEDING TUBE DAILYBB 11/22/21 12/16/21 History riluzole 50 mg tablet 50 mg PO BID 11/22/21 12/16/21 History polyethylene glycol 3350 17 gram 17 g PO DAILY PRN 30 Days #30 ea 11/26/21 12/16/21 Rx oral powder packet (Miralax) hydrocodone 10 mg-acetaminophen 15 ml PO Q8H PRN #473 ml 11/29/21 12/16/21 Rx 300 mg/15 mL oral solution (Lortab Elixir) albuterol sulfate 2.5 mg INHALATION Q4H PRN 12/16/21 12/16/21 History clotrimazole 1 % topical solution 1 applic TOPICAL BID PRN 12/16/21 12/16/21 History dicyclomine 20 mg tablet 20 mg PO Q6H 12/16/21 12/16/21 History guaifenesin 200 mg/5 mL oral liquid 400 mg FEEDING TUBE Q6H 12/16/21 12/16/21 History hydromorphone 1 mg/mL oral liquid 1 mg PO Q4H PRN 12/16/21 12/16/21 History lactobacillus combination no.4 3 0 mmu cells PO HS 12/16/21 12/16/21 History billion cell capsule (Probiotic) levocetirizine 5 mg tablet 5 mg PO HS 12/16/21 12/16/21 History menthol 0.44 %-zinc oxide 20.6 % 1 applic TOPICAL QID PRN 12/16/21 12/16/21 History topical ointment (Calmoseptine) nutritional supplements 1 ea FEEDING TUBE Q6H 12/16/21 12/16/21 History ondansetron HCl 4 mg tablet 4 mg PO Q6H 12/16/21 12/16/21 History scopolamine base 1 mg over 3 days 1 patch TRANSDERMAL Q3D 12/16/21 12/16/21 History transdermal patch vancomycin 50 mg/mL oral solution 125 mg FEEDING TUBE Q6H 12/16/21 12/16/21 History Patient History Medical History ALS (amyotrophic lateral sclerosis) Cancer left breast (2015) s/p left lumpectomy/XRT, no chemo Cervical stenosis of spinal canal Diarrhea GERD (gastroesophageal reflux disease) controlled, stable. Patient sleeps elevated HS. 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) "Abnormal left breast mammogram Status post stereotactic biopsy 11/14/2015 revealing DCIS grade 1 Estrogen receptor positive and progesterone receptor positive Status post needle localization lumpectomy 12/20/2015 Stage pTis pNX Status post completion of radiation therapy 03/01/2016 received 3850 cGy utilizing accelerated partial breast irradiation." On 03/14/16 11:36 Ese Cabrera wrote "Abnormal left breast mammogram Status post stereotactic biopsy 11/14/2015 revealing DCIS grade 1 Estrogen receptor positive and progesterone receptor positive Status post needle localization lumpectomy 12/20/2015 Stage pTis pNX Status post completion of radiation therapy 03/01/2016 received 3850 cGy u tilizing accelerated partial breast irradiation." On 02/01/16 11:23 Ese Cabrera wrote "Abnormal left breast mammogram Status post stereotactic biopsy 11/14/2015 revealing DCIS grade 1 Estrogen receptor positive and progesterone receptor positive Status post needle localization lumpectomy 12/20/2015 Stage pTis pNX" Lab test negative for COVID-19 virus Nausea Osteoarthritis Palliative care encounter SOB (shortness of breath) Surgical History H/O foot surgery R ORIF History of appendectomy History of carpal tunnel release R/L History of colectomy D/T DIVERTICULITIS History of colonoscopy MULTIPLE History of D&C D&C, hysteroscopy: 10/24/17: LMA# 4 at [facility] History of esophagogastroduodenoscopy (EGD) History of lumpectomy of left breast 2016 History of tonsillectomy S/P percutaneous endoscopic gastrostomy (PEG) tube placement Family History Mother Breast cancer Social History Smoking Status: Never smoker Tobacco Type: Cigarettes Second Hand Exposure: No; Hx Alcohol Use: No Hx Substance Use: No Preferred Language: [place] Communication Ability: Effective Firer [place]n Required: No Beliefs That Will Affect Care: None marital status: Current Living Situation: Other Current Living Situation Comment: with and daughter Other Information That Helps Us Care for You: No Feels Safe at Home: Yes Safety Concerns: Feels Safe At This Time Assistive Devices: Mechanical Lift and Oxygen - Continuous Review of Systems Review of Systems: [place] System Assessment Scale: Pain: 0/3 SOB: 2/3 Tiredness: 1/3 Lack of Appetite: 3/3 Palliative Performance Scale: 30% Physical Exam Constitutional: + ill appearing and + frail appearing ENMT: Mouth: + dry oral mucous membranes Respiratory: normal respiratory effort and + cough Auscultation: + rhonchi Cardiovascular: Rate/Rhythm: regular rate and regular rhythm Extremities: no pedal edema Gastrointestinal (Abdomen): Inspection/Auscultation: abdomen normal to inspection and normal bowel sounds (left sided abdomen PEG) Skin: normal turgor Psychiatric: Orientation: alert and oriented x 3 Insight: + limited insight Judgement: + limited judgement Results & Data ([facility]) Vital Signs (Past 12 Hours) Vital Signs Temp Pulse Pulse Resp BP Pulse Ox 12/24/21 08:45 60 12/24/21 07:38 36.4 C L 68 16 145/69 H 92 12/24/21 04:02 36.6 C 78 18 136/76 91 12/24/21 04:00 16 PG Care Time/CCT Total # of Minutes Spent Total Time Spent with Patient: Total time spent is greater than 50% in coordination of care (as documented) at patient's floor/unit and/or counseling patient: 100 minutes Coding Level of Care Code 27488 Initial Inpt Care Lvl 3 Diagnoses Palliative care encounter Z51.5 ALS (amyotrophic lateral sclerosis) G12.21 Diarrhea R19.7 Excessive oral secretions R68.89 Nausea R11.0 Time Spent (min) 100
[2021-12-24] MEDS: ONDANSETRON 4 MG OD TAB PO SCH (17:14)
--- NOTE | 2021-12-24 17:26 | Hospitalist Progress Note ---
Date of Service December 24, 2021 Assessment & Plan (1) ALS (amyotrophic lateral sclerosis): (2) Excessive oral secretions: Plan: 76-year-old with PMH of ALS, status post PEG tube, C. difficile, hypothyroidism, HTN, presented 12/16 for increased secretion and episodes of shortness of breath. #. EXCESSIVE ORAL SECRETIONS #. Concern of Aspiration Pna: Pt needed O2, R> L basal crackles, on unasyn 12/22 --> DC'd 12/23 after discussing with patient and her family as it exacerbating her C.diff who are in agreement. Likely from ALS progression versus reflux. Patient receiving tube feeding. X-ray KUB reviewed. Patient had increased oral secretion and shortness of breath 12/19 evening, tube feed was stopped 12/20 patient reports improving nausea, bloating sensation, sick at stomach. c/w lansoprazole BD, pepcid, BD, sucralfate QID and tums TID. resume tube feed at low rate, still w/ heartburn s/s. GI reached out. GI evaluated earlier, PEG tube in proper location and functioning appropriately. Business Planning Manager on board, recommends continuous tube feeding, appreciate recommendation. Reached out 12/24 to change Tube feed formula per patient request. Pt not able to tolerate current tube feed per Pt. Continue with suctioning every hour, as needed glycopyrrolate, scopolamine patch, on Dilaudid as needed at home. Glycopyrrolate/scopolamine can be held when secretions are thicker. d/w palliative care. #. C. difficile Patient has history of C. difficile, this is her fourth episode Fidaxomicin 12/16, Florastor. Diarrhea worsening again, likely 2/2 patient being started on unasyn for aspiration pna. Pt reports still with multiple diarrhea, per RN, 2 diarrhea today which is an improvement from yesterday continue to monitor. #. UTI - Urine culture: Gram-negative bacilli, Enterococcus sensitive to ceftriaxone -s/p antibiotic #. CHRONIC INTERSTITIAL LUNG DISEASE - CXR: chronic L pleural effusion #. HYPERTENSION -continue Losartan #. DVT prophylaxis: Heparin subcu every 12 hours #. Disposition Lives at home, being taken care of by her and also her daughter As per family, they still would like the patient to return home with their care when medically stable PT/OT, CM to assist with DC planning. 12/20: Patient's Ghulam was updated at bedside, they are in touch with palliative care as an outpatient and plan to follow-up with them. Answered all his questions, he voiced understanding and was agreeable to the plan of care. 12/21: Pt's and Dtr updated at bedside. they say they have palliative care as OP. They would like to talk with palliative care in house as well and may likely want to touch regarding hospice care for the patient. 12/22: Pt's family updated over the phone and at bedside. 12/23: Pt's family updated at bedside. Disposition: Palliative to eval. to be decided. Family wants patient to be at home. Admission and Anticipated Discharge Date Admission Date: December 16, 2021 Subjective Patient seen and examined at bedside as a follow-up of increased oral secretion, recently diagnosed ALS, C. difficile colitis. Patient was lying in bed, on room air, NAD, pt reports having multiple diarrhea today (about 8), still feels nauseated and has heartburn. D/w channel supervisor to change tube feed formula and see if that helps. Denies any pain. Patient denies fever/headache/chills/chest pain/palpitations/other review of symptoms. Physical Exam Physical Exam: GENERAL: Alert and oriented x3. NAD, on RA. HEENT: No pallor, no icterus. Pupils equal, round and reactive to light. Oral mucosa moist. NECK: No JVD, no neck masses. HEART: S1 and S2 heard. Regular rate and rhythm. No murmur, no gallop. RESPIRATORY SYSTEM: Normal AP diameter. No accessory muscle use. No wheezing, crackles b/b ABDOMEN: Soft, bowel sounds present, nontender, no distention. PEG tube in place. CENTRAL NERVOUS SYSTEM: No facial droop. Speech is clear. Obeys simple commands. LUE and LLE 3/5 EXTREMITIES: No edema, no erythema seen. Results & Data Results & Data ([facility]) Vital Signs (Past 12 Hours) Vital Signs Temp Pulse Pulse Resp BP Pulse Ox 12/24/21 15:12 36.7 C 83 73 18 154/82 H 92 12/24/21 14:53 73 22 93 12/24/21 08:45 60 12/24/21 07:38 36.4 C L 68 16 145/69 H 92
[2021-12-24] MEDS: guaiFENesin SUGAR FREE 100 MG/5 ML UDC PO PRN (18:25)
[2021-12-24] MEDS: LORazepam 0.5 MG TAB SL PRN (23:50)
[2021-12-25] MEDS: ONDANSETRON 4 MG OD TAB PO SCH ×5 (00:01→23:16)
[2021-12-25] MEDS: TUBE FEEDING WATER FLUSH PEG SCH ×6 (00:40→21:50)
[2021-12-25] MEDS: CALCIUM CARBONATE 500 MG CHEWABLE TAB PO SCH (02:05)
[2021-12-25] MEDS: HYDROmorphone INJ 0.5 MG/0.5 ML SYR IV PRN ×2 (04:47→09:18)
[2021-12-25] MEDS: LEVOTHYROXINE SODIUM 112 MCG TABLET PEG SCH (05:32)
[2021-12-25] MEDS: ALBUT/IPRATROP 3MG/0.5MG NEB 3 ML VIAL NEB SCH ×4 (07:22→20:17)
[2021-12-25] MEDS: LORazepam 0.5 MG TAB PO PRN ×2 (08:50→15:00)
[2021-12-25] MEDS: FIDAXOMICIN 200 MG TAB PO SCH ×2 (08:50→20:48)
[2021-12-25] MEDS: GLYCOPYRROLATE 1 MG TAB PO PRN (08:52)
[2021-12-25] MEDS: SACCHAROMYCES BOULARDII 250 MG CAP PO SCH (08:52)
[2021-12-25] MEDS: LANSOPRAZOLE 30 MG SOLTAB PEG SCH (08:52)
[2021-12-25] MEDS: FAMOTIDINE 20 MG TAB OG SCH ×2 (08:52→20:47)
[2021-12-25] MEDS: LOSARTAN POTASSIUM 50 MG TAB PEG SCH (08:52)
[2021-12-25] MEDS: SUCRALFATE 1 GM/10 ML UDC PO SCH ×4 (08:53→20:50)
[2021-12-25] MEDS: RILUZOLE PO SCH ×2 (08:53→20:49)
[2021-12-25] MEDS: guaiFENesin SUGAR FREE 200 MG/10 ML UDC PEG SCH (08:53)
[2021-12-25] MEDS: LIDOCAINE 5% 1 PATCH TD SCH (09:10)
--- NOTE | 2021-12-25 09:13 | Palliative Care Progress Note ---
Date of Service December 25, 2021 Assessment & Plan (1) Palliative care encounter: Plan: I met with Ms. Quinn earlier this morning. She was sitting upright in her bed and was self suctioning. She was awake and oriented. She was having increased abdominal pain this morning. See below. I received a call from the patients , Ghulam, this morning to discuss the overall plan. The family decided yesterday to pursue hospice. They are now deciding between [facility] and [facility]. A alvarado important factor to them is to continue tube feedings and have a few sessions through speech therapy. [facility] over the weekend spoke with them and it was indicated that they could accommodate. We also discussed GIP and respite hospice. As I mentioned yesterday, I do believe that the patient would benefit from a GIP Hospice admission at this time. The patient has utilized FOUR doses of IV Dilaudid over the past 24 hours, THREE doses of IV Ativan and one oral dose over the past 24 hours and has just been started on IV Protonix for symptom management by the recommendation of GI. Ultimately, I recognize that the patient and family would like her to return home; however, I would fear that sending her home without transitioning to oral medications would not set her up for a successful discharge, leading to her likely returning to the ED. I also believe that a GIP admission would allow Hospice staff to develop a rapport with the family to ease any anxious feelings about her returning home. I would entertain her being admitted under GIP hospice until ready for discharge. Palliative will follow. (2) ALS (amyotrophic lateral sclerosis): (3) Diarrhea: Plan: C-diff positive. Recommend holding tube feedings. Riluzole for her ALS could be a contributing factor. May have to discontinue if the patient/family proceed with hospice. (4) Excessive oral secretions: Plan: Self suctioning Has Glycopyrrolate 0.2 mg PO TID PRN. Per discussion with Dr. Wells with [facility] who has seen her in the past, the ALS spokesperson in [place], indicated that scheduled Robinul could make her secretions too stringy. Also on a Scopalamine patch PRN , which I think could be beneficial to schedule. (5) Nausea: Plan: Scheduled Routine Zofran 4 mg SL Q6. Started on IV protonix today. Haldol 2.5 mg SL Q8 PRN for intractable terminal nausea TF goal is 40 mL/hour, have been intermittently tolerating TF at 20mL. Admission and Anticipated Discharge Date Admission Date: December 16, 2021 Subjective Pt seen earlier this morning. Pt having increased abdominal pain and nausea. Pt awake and able to answer simple questions. Had a lengthy conversation with the patients earlier this morning re: disposition and options. See A/P for further details Review of Systems Review of Systems: [place] System Assessment Scale: Pain: 0/3 SOB: 2/3 Tiredness: 1/3 Lack of Appetite: 3/3 Palliative Performance Scale: 30% Physical Exam Constitutional: + ill appearing and + frail appearing ENMT: Mouth: + dry oral mucous membranes Respiratory: normal respiratory effort and + cough Auscultation: + rhonchi Cardiovascular: Rate/Rhythm: regular rate and regular rhythm Extremities: no pedal edema Gastrointestinal (Abdomen): Inspection/Auscultation: abdomen normal to inspection and normal bowel sounds (left sided abdomen PEG) Skin: normal turgor Psychiatric: Orientation: alert and oriented x 3 Insight: + limited insight Judgement: + limited judgement Results & Data ([facility]) Vital Signs (Past 12 Hours) Vital Signs Temp Pulse Pulse Resp BP BP Pulse Ox 12/25/21 08:43 60 12/25/21 07:51 36.4 C L 79 20 165/73 H 92 12/25/21 07:23 76 18 93 12/25/21 05:00 16 12/25/21 04:00 36.6 C 70 18 141/70 H 91 12/24/21 23:32 36.9 C 68 18 149/74 H 92 12/24/21 21:18 63 PG Care Time/CCT Total # of Minutes Spent Total Time Spent with Patient: Total time spent is greater than 50% in coordination of care (as documented) at patient's floor/unit and/or counseling patient: 45 minutes Coding Level of Care Code 86108 Subseq Hosp Care Lvl 3 Diagnoses Palliative care encounter Z51.5 ALS (amyotrophic lateral sclerosis) G12.21 Diarrhea R19.7 Excessive oral secretions R68.89 Nausea R11.0 Time Spent (min) 45
[2021-12-25] MEDS: PANTOprazole 40 MG in SYRINGE 0 ML IV SCH ×2 (10:35→20:37)
[2021-12-25] MEDS: CHOLESTYRAMINE LIGHT 4 GM PKT PO SCH (10:35)
--- NOTE | 2021-12-25 10:48 | Gastroenterology Progress Note ---
Date of Service December 25, 2021 Assessment & Plan (1) Diarrhea: (2) ALS (amyotrophic lateral sclerosis): (3) GERD (gastroesophageal reflux disease): Plan: Pt is a 76 yo female w hx of ALS, currently anticipating hospice, seen for acid reflux and diarrhea symptoms. She is on PEG tube feeds @ 20ml/hr, per RN no residuals. C/O burning sensation up esophagus and throat, despite having Lansoprazole 30mg BID, Famotidine 20mg BID and Carafate 1g QID per her PEG. She tested + for Cdiff (EPIC result) on 12/01. Initially treated with Vancomycin but diarrhea persist. She is at the end of her 10 day course of Fidoxamicin. Diarrhea frequency is less per pt/RN report. - Continue tube feed at low rate - Changed Lansoprazole to Protonix 40mg IV BID; May change Famotidine to IV form as well if need more coverage for acid reflux. Continue Carafate - Add Questran 1 packet daily - If diarrhea persist and Fidoxamicin course is completed, please repeat stool cx and Cdiff studies. - Pls recall GI prn Admission and Anticipated Discharge Date Admission Date: December 16, 2021 Supervising Physician Co-Signing Physician Notes PE - pleasant female sleepy but arousable, has suction near her mouth, no over drooling noted, abd exam with peg placement labs/ chart reviewed recent ir guided peg placement at [facility], recent egd has been done as well. agree with further plan of care including iv ppi/iv pepcid while here, c diff recommendations as stated. Subjective GI asked to re-evaluate pt for symptoms of acid reflux and diarrhea. Recall that pt has hx of ALS, difficulty controlling oral secretions. She has PEG tube, feeding @ 20ml/hr, per RN no residuals. She tested + for Cdiff (EPIC result) on 12/01. Initially treated with Vancomycin but diarrhea persist.She is at the end of her 10 day course of Fidoxamicin. Diarrhea frequency is less per pt/RN report. Pt reports burning sensation up her throat, some nausea, no vomiting, and lower abd discomfort. Review of Systems Review of Systems: All systems reviewed & are unremarkable except as noted in HPI & below Physical Exam Constitutional: WD/WN, vitals as above well groomed, cooperative and comfortable Eyes: PERRL, conjunctivae normal, anicteric sclerae ENMT: external ear and nose normal, oropharynx normal Respiratory: normal respiratory effort, lungs clear to auscultation Cardiovascular: RRR, no murmur, no edema Gastrointestinal (Abdomen): Soft, mild tenderness on lower abd areas, + BS Skin: no rashes, warm and dry no jaundice Psychiatric: A+Ox3, euthymic affect Lymphatic: no lymphedema Results & Data ([facility]) Vital Signs (Past 12 Hours) Vital Signs Temp Pulse Pulse Resp BP BP Pulse Ox 12/25/21 08:43 60 12/25/21 07:51 36.4 C L 79 20 165/73 H 92 12/25/21 07:23 76 18 93 12/25/21 05:00 16 12/25/21 04:00 36.6 C 70 18 141/70 H 91 12/24/21 23:32 36.9 C 68 18 149/74 H 92
--- NOTE | 2021-12-25 17:00 | Hospitalist Progress Note ---
Date of Service December 25, 2021 Assessment & Plan (1) ALS (amyotrophic lateral sclerosis): (2) Excessive oral secretions: Plan: 76-year-old with PMH of ALS, status post PEG tube, C. difficile, hypothyroidism, HTN, presented 12/16 for increased secretion and episodes of shortness of breath. #. EXCESSIVE ORAL SECRETIONS #. Concern of Aspiration Pna: Pt needed O2, R> L basal crackles, on unasyn 12/22 --> DC'd 12/23 after discussing with patient and her family (as it was exacerbating her C.diff) who are in agreement. Likely from ALS progression versus reflux. Patient receiving tube feeding. X-ray KUB reviewed. Patient had increased oral secretion and shortness of breath 12/19 evening, tube feed was stopped 12/20 patient reports improving nausea, bloating sensation, sick at stomach. c/w lansoprazole BD, pepcid, BD, sucralfate QID and tums TID. resume tube feed at low rate, still w/ heartburn s/s. GI reached out. GI evaluated earlier, PEG tube in proper location and functioning appropriately. Washcoat Wiper on board, recommends continuous tube feeding, appreciate recommendation. Reached out 12/24 to change Tube feed formula per patient request. Pt not able to tolerate peptamen tube feed per Pt. Continue with suctioning every hour, as needed glycopyrrolate, scopolamine patch, on Dilaudid as needed at home. Glycopyrrolate/scopolamine can be held when secretions are thicker. Pt still complaining of heartburn after changing tube feed, d/w GI - appreciate recs. D/w Palliative. #. C. difficile Patient has history of C. difficile, this is her fourth episode Fidaxomicin 12/16, Florastor. Diarrhea getting better per RN, softer stools now. D/w GI. if persistent diarrhea, get C diff test again to confirm treatment/look out for other causes. continue to monitor. #. UTI - Urine culture: Gram-negative bacilli, Enterococcus sensitive to ceftriaxone -s/p antibiotic #. CHRONIC INTERSTITIAL LUNG DISEASE - CXR: chronic L pleural effusion #. HYPERTENSION -continue Losartan #. DVT prophylaxis: Heparin subcu every 12 hours #. Disposition Lives at home, being taken care of by her and also her daughter As per family, they still would like the patient to return home with their care when medically stable PT/OT, CM to assist with DC planning. 12/20: Patient's Ghulam was updated at bedside, they are in touch with palliative care as an outpatient and plan to follow-up with them. Answered all his questions, he voiced understanding and was agreeable to the plan of care. 12/21: Pt's and Dtr updated at bedside. they say they have palliative care as OP. They would like to talk with palliative care in house as well and may likely want to touch regarding hospice care for the patient. 12/22: Pt's family updated over the phone and at bedside. 12/23: Pt's family updated at bedside. 12/25: D/w palliative inhouse and Pt's outpatient palliative. Pt's family updated at bedside. Disposition: Palliative to eval. to be decided. Family wants patient to be at home. To be decided. Admission and Anticipated Discharge Date Admission Date: December 16, 2021 Subjective Patient seen and examined at bedside as a follow-up of increased oral secretion, recently diagnosed ALS, C. difficile colitis. Patient was lying in bed, on room air, NAD, per RN diarrhea is improving, on softer side now, still feels nauseated and has not improving heartburn and belly pain despite maximal GI treatment. D/w GI and palliative care. Patient denies fever/headache/chills/chest pain/palpitations/other review of symptoms. Physical Exam Physical Exam: GENERAL: Alert and oriented x3. NAD, on RA. HEENT: No pallor, no icterus. Pupils equal, round and reactive to light. Oral mucosa moist. NECK: No JVD, no neck masses. HEART: S1 and S2 heard. Regular rate and rhythm. No murmur, no gallop. RESPIRATORY SYSTEM: Normal AP diameter. No accessory muscle use. No wheezing, crackles b/b ABDOMEN: Soft, bowel sounds present, nontender, no distention. PEG tube in place. CENTRAL NERVOUS SYSTEM: No facial droop. Speech is clear. Obeys simple commands. LUE and LLE 3/5 EXTREMITIES: No edema, no erythema seen. Results & Data Results & Data ([facility]) Vital Signs (Past 12 Hours) Vital Signs Temp Pulse Pulse Resp BP BP Pulse Ox 12/25/21 16:46 36.6 C 71 19 147/74 H 92 12/25/21 16:19 75 12/25/21 11:18 36.8 C 75 19 90/48 L 90 12/25/21 11:02 81 18 94 12/25/21 08:43 60 12/25/21 07:51 36.4 C L 79 20 165/73 H 92 12/25/21 07:23 76 18 93 12/25/21 05:00 16
[2021-12-25] MEDS: HYDROmorphone HCL 2 MG TAB PO PRN (20:52)
[2021-12-26] MEDS: TUBE FEEDING WATER FLUSH PEG SCH ×6 (01:13→21:02)
[2021-12-26] MEDS: LORazepam 0.5 MG TAB SL PRN (01:18)
[2021-12-26] MEDS: PROMETHAZINE HCL 12.5 MG in SODIUM CHLORIDE 0.9% 50 ML IV PRN ×2 (04:51→11:14)
[2021-12-26] MEDS: FIBERSOURCE HN 1.2 CAL 1000 ML BAG GT SCH (05:36)
[2021-12-26] MEDS: ONDANSETRON 4 MG OD TAB PO SCH ×3 (06:27→17:01)
[2021-12-26] MEDS: LEVOTHYROXINE SODIUM 112 MCG TABLET PEG SCH (06:28)
[2021-12-26] MEDS: ALBUT/IPRATROP 3MG/0.5MG NEB 3 ML VIAL NEB SCH ×4 (07:00→19:25)
[2021-12-26] MEDS: HYDROmorphone HCL 2 MG TAB PO PRN ×2 (08:23→20:42)
[2021-12-26] MEDS: RILUZOLE PO SCH ×2 (08:24→20:37)
[2021-12-26] MEDS: LOSARTAN POTASSIUM 50 MG TAB PEG SCH (08:25)
[2021-12-26] MEDS: SACCHAROMYCES BOULARDII 250 MG CAP PO SCH (08:25)
[2021-12-26] MEDS: guaiFENesin SUGAR FREE 200 MG/10 ML UDC PEG SCH (08:28)
[2021-12-26] MEDS: SUCRALFATE 1 GM/10 ML UDC PO SCH ×4 (08:28→20:39)
[2021-12-26] MEDS: LIDOCAINE 5% 1 PATCH TD SCH (08:28)
[2021-12-26] MEDS: FAMOTIDINE 20 MG TAB OG SCH ×2 (08:29→20:38)
[2021-12-26] MEDS: PANTOprazole 40 MG in SYRINGE 0 ML IV SCH ×2 (08:56→20:38)
[2021-12-26 09:08] LABS: BUN Creatinine Ratio 19.2 (10-20); Calcium 9.4 mg/dl (8.5-10.1); Creatinine Clr Calc Pharmacy 72.7 ml/min; Est GFR (African American) 106.8 ml/min; Est GFR (Non-African American) 92.2 ml/min; Magnesium 1.8 mg/dl (1.7-2.4); Phosphorus 2.9 mg/dl (2.5-4.9); Potassium 3.7 mmol/L (3.5-5.1)
[2021-12-26 09:21] LABS: Hematocrit (blood only) 40.1 % (37-47); Hemoglobin 12.8 g/dL (12.0-16.0); Mean Corpuscular Hemoglobin 28.9 pg (25-34); Mean Corpuscular Hgb Conc 31.9 g/dL (32-36); Mean Corpuscular Volume 90.5 fL (80-100); Mean Platelet Volume 10.4 fL (7.4-10.4); Platelet Count 338 K/uL (130-400); RDW Coefficient of Variation 14.9 % (11.5-14.5); RDW Standard Deviation 49.6 fL (36.4-46.3); Red Blood Count 4.43 M/uL (4.2-5.4); White Blood Count 7.15 K/uL (4.8-10.8)
[2021-12-26] MEDS: FIDAXOMICIN 200 MG TAB PO SCH (10:59)
[2021-12-26] MEDS: CHOLESTYRAMINE LIGHT 4 GM PKT PO SCH (10:59)
[2021-12-26] MEDS: GLYCOPYRROLATE 1 MG TAB PO PRN ×2 (13:16→16:57)
[2021-12-26] MEDS: LORazepam 0.5 MG TAB PO PRN (15:36)
[2021-12-26] MEDS: guaiFENesin SUGAR FREE 100 MG/5 ML UDC PO PRN (15:36)
--- NOTE | 2021-12-26 17:18 | Hospitalist Progress Note ---
Date of Service December 26, 2021 Assessment & Plan (1) ALS (amyotrophic lateral sclerosis): (2) Excessive oral secretions: Plan: 76-year-old with PMH of ALS, status post PEG tube, C. difficile, hypothyroidism, HTN, presented 12/16 for increased secretion and episodes of shortness of breath. #. EXCESSIVE ORAL SECRETIONS #. Concern of Aspiration Pna: Pt needed O2, R> L basal crackles, on unasyn 12/22 --> DC'd 12/23 after discussing with patient and her family (as it was exacerbating her C.diff) who are in agreement. Likely from ALS progression versus reflux. Patient receiving tube feeding. X-ray KUB reviewed. Patient had increased oral secretion and shortness of breath 12/19 evening, tube feed was stopped 12/20 patient reports improving nausea, bloating sensation, sick at stomach. c/w lansoprazole BD, pepcid, BD, sucralfate QID and tums TID. resume tube feed at low rate, still w/ heartburn s/s. GI reached out. GI evaluated earlier, PEG tube in proper location and functioning appropriately. Iron Cutter on board, recommends continuous tube feeding, appreciate recommendation. Reached out 12/24 to change Tube feed formula per patient request. Pt not able to tolerate peptamen tube feed per Pt. Continue with suctioning every hour, as needed glycopyrrolate, scopolamine patch, on Dilaudid as needed at home. Glycopyrrolate/scopolamine can be held when secretions are thicker. Pt still complaining of heartburn after changing tube feed, d/w GI - appreciate recs. Pt started on IV PPI - symptoms seem to be improving D/w Palliative. #. C. difficile Patient has history of C. difficile, this is her fourth episode Fidaxomicin 12/16, Florastor. Diarrhea getting better per RN, softer stools now. D/w GI. if persistent diarrhea, get C diff test again to confirm treatment/look out for other causes. continue to monitor. 12/25 -negative C. difficile gene #. UTI - Urine culture: Gram-negative bacilli, Enterococcus sensitive to ceftriaxone -s/p antibiotic #. CHRONIC INTERSTITIAL LUNG DISEASE - CXR: chronic L pleural effusion #. HYPERTENSION -continue Losartan #. DVT prophylaxis: Heparin subcu every 12 hours #. Disposition Lives at home, being taken care of by her and also her daughter As per family, they still would like the patient to return home with their care when medically stable PT/OT, CM to assist with DC planning. 12/20: Patient's Ghulam was updated at bedside, they are in touch with palliative care as an outpatient and plan to follow-up with them. Answered all his questions, he voiced understanding and was agreeable to the plan of care. 12/21: Pt's and Dtr updated at bedside. they say they have palliative care as OP. They would like to talk with palliative care in house as well and may likely want to touch regarding hospice care for the patient. 12/22: Pt's family updated over the phone and at bedside. 12/23: Pt's family updated at bedside. 12/25: D/w palliative inhouse and Pt's outpatient palliative. Pt's family updated at bedside. Disposition: Palliative to eval. to be decided. Family wants patient to be at home. To be decided. Admission and Anticipated Discharge Date Admission Date: December 16, 2021 Subjective Patient seen in follow-up of increased oral secretion, recently diagnosed ALS, C. difficile colitis. Patient is lying in bed, in NAD pt has suction placed near her mouth diarrhea is improving recently tube feeds were changed about to be finished w/ c. diff treatment c. diff tested and negative Patient denies fever/headache/chills/chest pain/palpitations/other review of symptoms. Family at the bedside. Review of Systems Review of Systems: All systems reviewed & are unremarkable except as noted in Subjective Physical Exam Physical Exam: GENERAL: Alert and oriented x3. NAD, on RA. HEENT: No pallor, no icteru s. Pupils equal, round and reactive to light. NECK: No JVD, no neck m asses. HEART: S1 and S2 heard. Reg ular rate and rhyt hm. No murmur, no gallop. RESPIRATO RY: Normal AP yarelis meter. No accesso ry muscle use. No wheezing, crackle s b/b ABDOMEN: So ft, bowel sounds p resent, nontender, no distention. P EG tube in place. NEURO: No facial droop. Speech is clear. Obeys simp le commands. LUE and LLE 3/5 EXTREM ITIES: No edema, no erythema seen. Results & Data Results & Data ([facility]) Vital Signs (Past 12 Hours) Vital Signs Temp Pulse Pulse Resp BP Pulse Ox 12/26/21 15:00 18 93 12/26/21 14:20 66 12/26/21 11:00 16 96 12/26/21 10:55 36.8 C 70 18 146/80 H 96 12/26/21 07:54 36.8 C 74 18 160/62 H 95 12/26/21 07:00 18 95 12/26/21 06:36 72 Laboratory Results 12/26/21 12/26/21 12/25/21 Range/Units 08:21 08:21 21:05 WBC 7.15 (4.8-10.8) K/uL RBC 4.43 (4.2-5.4) M/uL Hgb 12.8 (12.0-16.0) g/dL Hct 40.1 (37-47) % MCV 90.5 (80-100) fL MCH 28.9 (25-34) pg MCHC 31.9 L (32-36) g/dL RDW Std Deviation 49.6 H (36.4-46.3) fL RDW Coeff of Marcela 14.9 H (11.5-14.5) % Plt Count 338 (130-400) K/uL MPV 10.4 (7.4-10.4) fL Sodium 137 (136-145) mmol/L Potassium 3.7 (3.5-5.1) mmol/L Chloride 101 (98-107) mmol/L Carbon Dioxide 32 (21-32) mmol/L Anion Gap 4 (3-11) BUN 10 (6-23) mg/dl Creatinine 0.52 L (0.6-1.2) mg/dl Est Cr Clr Drug Dosing 72.7 ml/min Est GFR ( Amer) 106.8 ml/min Est GFR (Non-Af Amer) 92.2 ml/min BUN/Creatinine Ratio 19.2 (10-20) Glucose 104 H (70-99(Fasting)) mg/dl Calcium 9.4 (8.5-10.1) mg/dl Phosphorus 2.9 (2.5-4.9) mg/dl Magnesium 1.8 (1.7-2.4) mg/dl Stl C. diff Tox B Gene Negative Cdiff Gene (Neg) Medications Administered Current Inpatient Medications Albuterol (Albut/Ipratrop 3mg/0.5mg Neb 3 Ml Vial) 3 ml NEB QIDR [facility]; Protocol Stop: 01/21/22 06:59 Last Admin: 12/26/21 15:39 Dose: Not Given Documented by: Albuterol (Albut/Ipratrop 3mg/0.5mg Neb 3 Ml Vial) 3 ml NEB Q2H PRN; Protocol PRN Reason: SOB/WHEEZING Stop: 01/21/22 05:29 Cholestyramine Resin (Cholestyramine Light 4 Gm Pkt) 4 gm PO DAILY@1000 DAIJA Stop: 01/24/22 09:59 Last Admin: 12/26/21 10:59 Dose: 4 gm Documented by: Enteral Nutritional Formula (Fibersource Hn 1.2 Kavon 1000 Ml Bag) 1,000 ml GT UD [facility]; Protocol Stop: 01/23/22 11:29 Last Admin: 12/26/21 05:36 Dose: 1,000 ml Documented by: Famotidine (Famotidine 20 Mg Tab) 20 mg OG BID [facility] Stop: 01/20/22 11:44 Last Admin: 12/26/21 08:29 Dose: 20 mg Documented by: Fidaxomicin (Fidaxomicin 200 Mg Tab) 200 mg PO BID [facility] Stop: 12/26/21 20:59 Last Admin: 12/26/21 10:59 Dose: 200 mg Documented by: Glycopyrrolate (Glycopyrrolate 1 Mg Tab) 2 mg PO TID PRN PRN Reason: Secretions Stop: 01/15/22 16:17 Last Admin: 12/26/21 16:57 Dose: 2 mg Documented by: Guaifenesin (Guaifenesin Sugar Free 200 Mg/10 Ml Udc) 400 mg PEG DAILY [facility] Stop: 01/16/22 08:59 Last Admin: 12/26/21 08:28 Dose: 400 mg Documented by: Guaifenesin (Guaifenesin Sugar Free 100 Mg/5 Ml Udc) 100 mg PO Q6H PRN PRN Reason: Cough Stop: 01/15/22 20:10 Last Admin: 12/26/21 15:36 Dose: 100 mg Documented by: Haloperidol (Haloperidol 0.5 Mg Tab) 0.5 mg PO Q8H PRN PRN Reason: nausea Stop: 01/23/22 13:53 Hydromorphone HCl (Hydromorphone Hcl 2 Mg Tab) 1 mg PO Q4H PRN PRN Reason: Pain Stop: 01/08/22 14:46 Last Admin: 12/26/21 08:23 Dose: 1 mg Documented by: Hydroxyzine HCl (Hydroxyzine Hcl 25 Mg Tab) 25 mg PEG Q6 PRN PRN Reason: Anxiety Stop: 01/15/22 16:17 Last Admin: 12/21/21 20:49 Dose: 25 mg Documented by: Promethazine HCl 12.5 mg/ (Sodium Chloride) 50.5 mls @ 202 mls/hr IV Q6H PRN PRN Reason: Nausea And Vomiting Stop: 01/18/22 05:57 Last Infusion: 12/26/21 11:50 Dose: Infused Documented by: Pantoprazole Sodium 40 mg/ (Syringe) 10 mls @ 5 mls/min IV BID DAIJA Stop: 01/24/22 09:14 Last Admin: 12/26/21 08:56 Dose: 5 mls/min Documented by: Levothyroxine Sodium (Levothyroxine Sodium 112 Mcg Tablet) 112 mcg PEG DAILYBB [facility] Stop: 01/16/22 06:29 Last Admin: 12/26/21 06:28 Dose: 112 mcg Documented by: Lidocaine (Lidocaine 5% 1 Patch) 1 patch TD DAILY [facility] Stop: 01/16/22 08:59 Last Admin: 12/26/21 08:28 Dose: Not Given Documented by: Lorazepam (Lorazepam 0.5 Mg Tab) 0.5 mg SL HS PRN PRN Reason: Anxiety Stop: 01/15/22 16:17 Last Admin: 12/26/21 01:18 Dose: 0.5 mg Documented by: Lorazepam (Lorazepam 0.5 Mg Tab) 0.5 mg PO Q4H PRN PRN Reason: Anxiety Stop: 01/17/22 13:21 Last Admin: 12/26/21 15:36 Dose: 0.5 mg Documented by: Losartan Potassium (Losartan Potassium 50 Mg Tab) 100 mg PEG QAM DAIJA Stop: 01/16/22 08:59 Last Admin: 12/26/21 08:25 Dose: 100 mg Documented by: Miscellaneous (Remove Lidoderm Patch) 1 ea N/A DAILY@2100 [facility] Stop: 01/15/22 20:59 Last Admin: 12/25/21 20:50 Dose: 1 ea Documented by: Riluzole - Non- Formulary Patient's Own Med 1 ea PO BID [facility] Stop: 01/15/22 20:59 Last Admin: 12/26/21 08:24 Dose: 1 ea Documented by: Ondansetron HCl (Ondansetron 4 Mg Od Tab) 4 mg PO Q6H [facility] Stop: 01/23/22 17:59 Last Admin: 12/26/21 17:01 Dose: 4 mg Documented by: Polyethylene Glycol (Polyethylene (Miralax) 17 Gm Pack) 17 gm GT DAILY PRN PRN Reason: constipation Stop: 01/15/22 16:17 Saccharomyces Boulardii (Saccharomyces Boulardii 250 Mg Cap) 250 mg PO DAILY [facility] Stop: 01/18/22 17:59 Last Admin: 12/26/21 08:25 Dose: 250 mg Documented by: Scopolamine (Scopolamine 1 Mg Tdsy) 1 mg TD Q3D PRN PRN Reason: secretions Stop: 01/15/22 16:17 Last Admin: 12/19/21 13:00 Dose: 1 mg Documented by: Sterile Water (Tube Feeding Water Flush) 125 ml PEG Q4H [facility] Stop: 01/16/22 13:29 Last Admin: 12/26/21 17:01 Dose: 125 ml Documented by: Sucralfate (Sucralfate 1 Gm/10 Ml Udc) 1 gm PO QID [facility] Stop: 01/21/22 12:59 Last Admin: 12/26/21 16:57 Dose: 1 gm Documented by:
[2021-12-27] MEDS: TUBE FEEDING WATER FLUSH PEG SCH ×6 (00:44→21:24)
[2021-12-27] MEDS: hydrOXYzine HCl 25 MG TAB PEG PRN ×2 (03:05→23:15)
[2021-12-27] MEDS: HYDROmorphone HCL 2 MG TAB PO PRN ×3 (03:05→20:54)
[2021-12-27] MEDS: ONDANSETRON 4 MG OD TAB PO SCH ×5 (03:05→23:15)
[2021-12-27] MEDS: LEVOTHYROXINE SODIUM 112 MCG TABLET PEG SCH (06:09)
[2021-12-27] MEDS: ALBUT/IPRATROP 3MG/0.5MG NEB 3 ML VIAL NEB SCH (07:13)
[2021-12-27] MEDS: FIBERSOURCE HN 1.2 CAL 1000 ML BAG GT SCH (07:23)
[2021-12-27] MEDS: FAMOTIDINE 20 MG TAB OG SCH ×2 (08:06→20:54)
[2021-12-27] MEDS: guaiFENesin SUGAR FREE 200 MG/10 ML UDC PEG SCH ×2 (08:06→23:15)
[2021-12-27] MEDS: PANTOprazole 40 MG in SYRINGE 0 ML IV SCH ×2 (08:06→21:13)
[2021-12-27] MEDS: LOSARTAN POTASSIUM 50 MG TAB PEG SCH (08:06)
[2021-12-27] MEDS: SUCRALFATE 1 GM/10 ML UDC PO SCH ×4 (08:07→20:55)
[2021-12-27] MEDS: LIDOCAINE 5% 1 PATCH TD SCH (08:08)
[2021-12-27] MEDS: RILUZOLE PO SCH ×2 (08:08→20:56)
[2021-12-27] MEDS: GLYCOPYRROLATE 1 MG TAB PO PRN ×2 (08:10→17:35)
[2021-12-27] MEDS: CHOLESTYRAMINE LIGHT 4 GM PKT PO SCH (11:15)
[2021-12-27] MEDS: LORazepam 0.5 MG TAB PO PRN ×2 (11:15→17:44)
[2021-12-27] MEDS: SACCHAROMYCES BOULARDII 250 MG CAP PO SCH (12:07)
[2021-12-27] MEDS: guaiFENesin SUGAR FREE 100 MG/5 ML UDC PO PRN ×2 (12:07→17:35)
--- NOTE | 2021-12-27 13:20 | Palliative Care Progress Note ---
Date of Service December 27, 2021 Assessment & Plan (1) Palliative care encounter: Plan: I met with Ms. Quinn earlier this morning. She was sitting upright in her bed and was self suctioning. She was awake and oriented. She was having increased abdominal pain this morning. See below. Over the last few days, the family has been in flux regarding their overall goals. The patient has shown some stability with her symptoms over the past few days; however, she has not gotten to her overall tube feeding goal with appropriate symptom management. Goal is to transition home with home health and outpatient palliative medicine. Case management working on logistics with discharge. I did explain that it is highly likely that this individual will return to the hospital due to uncontrolled symptoms. I discussed this with the patient's , Ghulam over the phone. Ultimately, the plan is for her to be discharged home tomorrow, FridayDecember 28. Palliative will follow. (2) ALS (amyotrophic lateral sclerosis): (3) Diarrhea: Plan: C-diff positive. On IV abx. Riluzole for her ALS could be a contributing factor. Family not interested in hospice transition yet, will be discharged on home health with outpatient follow up. (4) Excessive oral secretions: Plan: Self suctioning. Has Glycopyrrolate 0.2 mg PO TID PRN. Per previous recommendation by the ALS navigator in [place], scheduled Glyc has led to her having stringy secretions, so advised not to administer routine. Also on a Scopalamine patch PRN , which I think could be beneficial to schedule. (5) Nausea: Plan: Scheduled Routine Zofran 4 mg SL Q6. Tolerating IV Protonix. Haldol 2.5 mg SL Q8 PRN for nausea TF goal is now 55 mL/hour, has been tolerating at 30mL/hour. Admission and Anticipated Discharge Date Admission Date: December 16, 2021 Subjective Pt seen and examined today. Pt awake, alert and able to have some small conversation. Patients diarrhea is improving. She is tolerating her tube feedings; however, she is not near goal yet. She is using a yankeour at her bedside independently. Review of Systems Review of Systems: [place] [facility] Assessment Scale: Pain: 0/3 SOB: 2/3 Tiredness: 1/3 Lack of Appetite: 3/3 Palliative Performance Scale: 30% Physical Exam Constitutional: + ill appearing and + frail appearing ENMT: Mouth: + dry oral mucous membranes Respiratory: normal respiratory effort and + cough Auscultation: + rhonchi Cardiovascular: Rate/Rhythm: regular rate and regular rhythm Extremities: no pedal edema Gastrointestinal (Abdomen): Inspection/Auscultation: abdomen normal to inspection and normal bowel sounds (left sided abdomen PEG) Skin: normal turgor Psychiatric: Orientation: alert and oriented x 3 Insight: + limited insight Judgement: + limited judgement Results & Data ([facility]) Vital Signs (Past 12 Hours) Vital Signs Temp Pulse Pulse Pulse Resp BP Pulse Ox 12/27/21 11:21 36.5 C 71 16 152/74 H 93 12/27/21 08:04 36.4 C L 68 16 138/86 93 12/27/21 07:23 58 L 12/27/21 02:20 63 Pulse Ox 12/27/21 11:21 12/27/21 08:04 12/27/21 07:23 12/27/21 02:20 92 PG Care Time/CCT Total # of Minutes Spent Total Time Spent with Patient: Total time spent is greater than 50% in coordination of care (as documented) at patient's floor/unit and/or counseling patient: 35 minutes Coding Level of Care Code 36737 Subseq Hosp Care Lvl 3 Diagnoses Palliative care encounter Z51.5 ALS (amyotrophic lateral sclerosis) G12.21 Diarrhea R19.7 Excessive oral secretions R68.89 Nausea R11.0 Time Spent (min) 35
[2021-12-27] MEDS ORDERED: FIBERSOURCE HN 1.2 CAL 1000 ML BAG GT SCH (13:45)
--- NOTE | 2021-12-27 17:40 | Hospitalist Progress Note ---
Date of Service December 27, 2021 Assessment & Plan (1) ALS (amyotrophic lateral sclerosis): (2) Excessive oral secretions: Plan: 76 yo with hx of ALS, status post PEG tube, C. difficile, hypothyroidism, HTN, presented 12/16 for increased secretion and episodes of shortness of breath. #. EXCESSIVE ORAL SECRETIONS #. Concern of Aspiration Pna: Pt needed O2, R> L basal crackles, on unasyn 12/22 --> DC'd 12/23 after discussing with patient and her family (as it was exacerbating her C.diff) who are in agreement. Likely from ALS progression versus reflux. Patient receiving tube feeding. X-ray KUB reviewed. Patient had increased oral secretion and shortness of breath 12/19 evening, tube feed was stopped 12/20 patient reports improving nausea, bloating sensation, sick at stomach. c/w lansoprazole BD, pepcid, BD, sucralfate QID and tums TID. resume tube feed at low rate, still w/ heartburn s/s. GI reached out. GI evaluated earlier, PEG tube in proper location and functioning appropriately. Status Controller on board, recommends continuous tube feeding, appreciate recommendation. Reached out 12/24 to change Tube feed formula per patient request. Pt not able to tolerate peptamen tube feed per Pt. Continue with suctioning every hour, as needed glycopyrrolate, scopolamine patch, on Dilaudid as needed at home. Glycopyrrolate/scopolamine can be held when secretions are thicker. Pt still complaining of heartburn after changing tube feed, d/w GI - appreciate recs. Pt started on IV PPI - symptoms seem to be improving D/w Palliative. #. C. difficile Patient has history of C. difficile, this is her fourth episode Fidaxomicin 12/16, Florastor. Diarrhea getting better per RN, softer stools now. D/w GI. if persistent diarrhea, get C diff test again to confirm treatment/look out for other causes. continue to monitor. 12/25 -negative C. difficile gene stools improved Plan to continue with different tube feeds, fibersource, which patient seems to be tolerating much better. Patient is at high risk of aspiration, and therefore she could not tolerate bolus feeds. Recommend Kangaroo pump and perhaps have her feedings run over 18 hours/day. #. UTI - Urine culture: Gram-negative bacilli, Enterococcus sensitive to ceftriaxone -s/p antibiotic #. CHRONIC INTERSTITIAL LUNG DISEASE - CXR: chronic L pleural effusion #. HYPERTENSION -continue Losartan #. DVT prophylaxis: Heparin subcu every 12 hours #. Disposition Lives at home, being taken care of by her and also her daughter As per family, they still would like the patient to return home with their care when medically stable PT/OT, CM to assist with DC planning. Disposition: Palliative medicine has been involved, and there was plan for home hospice. However family and patient changed their mind, and do not wish at this time to go home with hospice care, and instead want to go home with home health. Plan to discharge patient tomorrow, once tube feeds and pump available for the patient at home. Patient and family understand very poor prognosis. Admission and Anticipated Discharge Date Admission Date: December 16, 2021 Subjective Patient seen in follow-up of increased oral secretion, recently diagnosed ALS, C. difficile colitis. Patient is lying in bed, in NAD pt has suction placed near her mouth diarrhea is improving recently tube feeds were changed, which seems to help with her stools finished w/ c. diff treatment c. diff tested and negative Patient denies fever/headache/chills/chest pain/palpitations/other review of symptoms. Patient and family decided not to go with hospice route. Instead, they would like to take patient home with home health. CM aware, will need to transition p atient safely home, which involves for the patient to have new tube feeds available, and also change of pump. Patient would not tolerate bolus feedings, she is very high risk of aspiration. Review of Systems Review of Systems: All systems reviewed & are unremarkable except as noted in Subjective Physical Exam Physical Exam: GENERAL: Alert and oriented x3. NAD, on RA. HEENT: No pallor, no icteru s. Pupils equal, round and reactive to light. NECK: No JVD, no neck m asses. HEART: S1 and S2 heard. Reg ular rate and rhyt hm. No murmur, no gallop. RESPIRATO RY: Normal AP yarelis meter. No accesso ry muscle use. No wheezing, crackle s b/b ABDOMEN: So ft, bowel sounds p resent, nontender, no distention. P EG tube in place. NEURO: No facial droop. Speech is clear. Obeys simp le commands. LUE and LLE 3/5 EXTREM ITIES: No edema, no erythema seen. Results & Data Results & Data ([facility]) Vital Signs (Past 12 Hours) Vital Signs Temp Pulse Pulse Resp BP Pulse Ox 12/27/21 17:07 77 12/27/21 11:21 36.5 C 71 16 152/74 H 93 12/27/21 08:04 36.4 C L 68 16 138/86 93 12/27/21 07:23 58 L Medications Administered Current Inpatient Medications Albuterol (Albut/Ipratrop 3mg/0.5mg Neb 3 Ml Vial) 3 ml NEB Q2H PRN; Protocol PRN Reason: SOB/WHEEZING Stop: 01/21/22 05:29 Cholestyramine Resin (Cholestyramine Light 4 Gm Pkt) 4 gm PO DAILY@1000 [facility] Stop: 01/24/22 09:59 Last Admin: 12/27/21 11:15 Dose: 4 gm Documented by: Enteral Nutritional Formula (Fibersource Hn 1.2 Kavon 1000 Ml Bag) 1,000 ml GT UD [facility]; Protocol Stop: 01/26/22 13:44 Famotidine (Famotidine 20 Mg Tab) 20 mg OG BID [facility] Stop: 01/20/22 11:44 Last Admin: 12/27/21 08:06 Dose: 20 mg Documented by: Glycopyrrolate (Glycopyrrolate 1 Mg Tab) 2 mg PO TID PRN PRN Reason: Secretions Stop: 01/15/22 16:17 Last Admin: 12/27/21 17:35 Dose: 2 mg Documented by: Guaifenesin (Guaifenesin Sugar Free 200 Mg/10 Ml Udc) 400 mg PEG DAILY [facility] Stop: 01/16/22 08:59 Last Admin: 12/27/21 08:06 Dose: 400 mg Documented by: Guaifenesin (Guaifenesin Sugar Free 100 Mg/5 Ml Udc) 100 mg PO Q4H PRN PRN Reason: Cough Stop: 01/15/22 20:10 Last Admin: 12/27/21 17:35 Dose: 100 mg Documented by: Haloperidol (Haloperidol 0.5 Mg Tab) 0.5 mg PO Q8H PRN PRN Reason: nausea Stop: 01/23/22 13:53 Hydromorphone HCl (Hydromorphone Hcl 2 Mg Tab) 1 mg PO Q4H PRN PRN Reason: Pain Stop: 01/08/22 14:46 Last Admin: 12/27/21 08:07 Dose: 1 mg Documented by: Hydroxyzine HCl (Hydroxyzine Hcl 25 Mg Tab) 25 mg PEG Q6 PRN PRN Reason: Anxiety Stop: 01/15/22 16:17 Last Admin: 12/27/21 03:05 Dose: 25 mg Documented by: Promethazine HCl 12.5 mg/ (Sodium Chloride) 50.5 mls @ 202 mls/hr IV Q6H PRN PRN Reason: Nausea And Vomiting Stop: 01/18/22 05:57 Last Infusion: 12/26/21 11:50 Dose: Infused Documented by: Pantoprazole Sodium 40 mg/ (Syringe) 10 mls @ 5 mls/min IV BID [facility] Stop: 01/24/22 09:14 Last Admin: 12/27/21 08:06 Dose: 5 mls/min Documented by: Levothyroxine Sodium (Levothyroxine Sodium 112 Mcg Tablet) 112 mcg PEG DAILYBB [facility] Stop: 01/16/22 06:29 Last Admin: 12/27/21 06:09 Dose: 112 mcg Documented by: Lidocaine (Lidocaine 5% 1 Patch) 1 patch TD DAILY [facility] Stop: 01/16/22 08:59 Last Admin: 12/27/21 08:08 Dose: Not Given Documented by: Lorazepam (Lorazepam 0.5 Mg Tab) 0.5 mg SL HS PRN PRN Reason: Anxiety Stop: 01/15/22 16:17 Last Admin: 12/26/21 01:18 Dose: 0.5 mg Documented by: Lorazepam (Lorazepam 0.5 Mg Tab) 0.5 mg PO Q4H PRN PRN Reason: Anxiety Stop: 01/17/22 13:21 Last Admin: 12/27/21 11:15 Dose: 0.5 mg Documented by: Losartan Potassium (Losartan Potassium 50 Mg Tab) 100 mg PEG QAM [facility] Stop: 01/16/22 08:59 Last Admin: 12/27/21 08:06 Dose: 100 mg Documented by: Miscellaneous (Remove Lidoderm Patch) 1 ea N/A DAILY@2100 [facility] Stop: 01/15/22 20:59 Last Admin: 04/27/22 21:02 Dose: Not Given Documented by: Riluzole - Non- Formulary Patient's Own Med 1 ea PO BID [facility] Stop: 01/15/22 20:59 Last Admin: 12/27/21 08:08 Dose: 1 ea Documented by: Ondansetron HCl (Ondansetron 4 Mg Od Tab) 4 mg PO Q6H [facility] Stop: 01/23/22 17:59 Last Admin: 12/27/21 17:34 Dose: 4 mg Documented by: Polyethylene Glycol (Polyethylene (Miralax) 17 Gm Pack) 17 gm GT DAILY PRN PRN Reason: constipation Stop: 01/15/22 16:17 Saccharomyces Boulardii (Saccharomyces Boulardii 250 Mg Cap) 250 mg PO DAILY [facility] Stop: 01/18/22 17:59 Last Admin: 12/27/21 12:07 Dose: 250 mg Documented by: Scopolamine (Scopolamine 1 Mg Tdsy) 1 mg TD Q3D PRN PRN Reason: secretions Stop: 01/15/22 16:17 Last Admin: 12/19/21 13:00 Dose: 1 mg Documented by: Sterile Water (Tube Feeding Water Flush) 125 ml PEG Q4H [facility] Stop: 01/16/22 13:29 Last Admin: 12/27/21 17:35 Dose: 125 ml Documented by: Sucralfate (Sucralfate 1 Gm/10 Ml Udc) 1 gm PO QID [facility] Stop: 01/21/22 12:59 Last Admin: 12/27/21 17:34 Dose: 1 gm Documented by:
[2021-12-27] MEDS: NYSTATIN SUSP 500,000 U/5 ML UDC PO SCH ×2 (20:55→21:04)
[2021-12-28] MEDS: TUBE FEEDING WATER FLUSH PEG SCH ×5 (01:50→17:30)
[2021-12-28] MEDS: ONDANSETRON 4 MG OD TAB PO SCH ×3 (05:30→17:55)
[2021-12-28] MEDS: LEVOTHYROXINE SODIUM 112 MCG TABLET PEG SCH (05:30)
[2021-12-28] MEDS: HYDROmorphone HCL 2 MG TAB PO PRN ×2 (05:38→12:15)
--- NOTE | 2021-12-28 07:14 | Hospitalist Progress Note ---
Date of Service December 28, 2021 Assessment & Plan (1) ALS (amyotrophic lateral sclerosis): (2) Excessive oral secretions: Plan: 76 yo with hx of ALS, status post PEG tube, C. difficile, hypothyroidism, HTN, presented 12/16 for increased secretion and episodes of shortness of breath. #. EXCESSIVE ORAL SECRETIONS #. Concern of Aspiration Pna: Pt needed O2, R> L basal crackles, on unasyn 12/22 --> DC'd 12/23 after discussing with patient and her family (as it was exacerbating her C.diff) who are in agreement. Likely from ALS progression versus reflux. Patient receiving tube feeding. X-ray KUB reviewed. Patient had increased oral secretion and shortness of breath 12/19 evening, tube feed was stopped 12/20 patient reports improving nausea, bloating sensation, sick at stomach. c/w lansoprazole BD, pepcid, BD, sucralfate QID and tums TID. resume tube feed at low rate, still w/ heartburn s/s. GI reached out. GI evaluated earlier, PEG tube in proper location and functioning appropriately. Transportation Refrigeration Technician on board, recommends continuous tube feeding, appreciate recommendation. Reached out 12/24 to change Tube feed formula per patient request. Pt not able to tolerate peptamen tube feed per Pt. Continue with suctioning every hour, as needed glycopyrrolate, scopolamine patch, on Dilaudid as needed at home. Glycopyrrolate/scopolamine can be held when secretions are thicker. Pt still complaining of heartburn after changing tube feed, d/w GI - appreciate recs. Pt started on IV PPI - symptoms seem to be improving, will switch to liquid form (to be administered via PEG) on DC D/w Palliative. #. C. difficile Patient has history of C. difficile, this is her fourth episode Fidaxomicin 12/16, Florastor. Diarrhea getting better per RN, softer stools now. D/w GI. if persistent diarrhea, get C diff test again to confirm treatment/look out for other causes. continue to monitor. 12/25 -negative C. difficile gene stools improved Plan to continue with different tube feeds, fibersource, which patient seems to be tolerating much better. Patient is at high risk of aspiration, and therefore she could not tolerate bolus feeds. Recommend Kangaroo pump and perhaps have her feedings run over 18 hours/day. #. UTI - Urine culture: Gram-negative bacilli, Enterococcus sensitive to ceftriaxone -s/p antibiotic #. CHRONIC INTERSTITIAL LUNG DISEASE - CXR: chronic L pleural effusion #. HYPERTENSION -continue Losartan #. DVT prophylaxis: Heparin subcu every 12 hours #. Disposition Lives at home, being taken care of by her and also her daughter As per family, they still would like the patient to return home with their care when medically stable PT/OT, CM to assist with DC planning. Disposition: Palliative medicine has been involved, and there was plan for home hospice. However family and patient changed their mind, and do not wish at this time to go home with hospice care, and instead want to go home with home health. Plan to discharge patient today, once tube feeds and pump available for the patient at home. Patient and family understand very poor prognosis. Admission and Anticipated Discharge Date Admission Date: December 16, 2021 Subjective Patient seen in follow-up of increased oral secretion, recently diagnosed ALS, C. difficile colitis. Patient is lying in bed, in NAD pt has suction placed near her mouth diarrhea is much improved recently tube feeds were changed, which seems to help with her stools finished w/ c. diff treatment c. diff tested and negative Patient denies fever/headache/chills/chest pain/palpitations/other review of symptoms. Patient and family decided not to go with hospice route. Instead, they would like to take patient home with home health. CM aware, will need to transition patient safely home, which involves for the patient to have new tube feeds available, and also change of pump. Patient would not tolerate bolus feedings, she is very high risk of aspiration. Review of Systems Review of Systems: All systems reviewed & are unremarkable except as noted in Subjective Physical Exam Physical Exam: GENERAL: Alert and oriented x3. NAD, on RA. HEENT: No pallor, no icteru s. Pupils equal, round and reactive to light. NECK: No JVD, no neck m asses. HEART: S1 and S2 heard. Reg ular rate and rhyt hm. No murmur, no gallop. RESPIRATO RY: Normal AP yarelis meter. No accesso ry muscle use. No wheezing, crackle s b/b ABDOMEN: So ft, bowel sounds p resent, nontender, no distention. P EG tube in place. NEURO: No facial droop. Speech is clear. Obeys simp le commands. LUE and LLE 3/5 EXTREM ITIES: No edema, no erythema seen. Results & Data Results & Data ([facility]) Vital Signs (Past 12 Hours) Vital Signs Temp Pulse Resp BP Pulse Ox 12/27/21 23:00 36.5 C 80 20 153/78 H 91 Medications Administered Current Inpatient Medications Albuterol (Albut/Ipratrop 3mg/0.5mg Neb 3 Ml Vial) 3 ml NEB Q2H PRN; Protocol PRN Reason: SOB/WHEEZING Stop: 01/21/22 05:29 Cholestyramine Resin (Cholestyramine Light 4 Gm Pkt) 4 gm PO DAILY@1000 [facility] Stop: 01/24/22 09:59 Last Admin: 12/27/21 11:15 Dose: 4 gm Documented by: Enteral Nutritional Formula (Fibersource Hn 1.2 Kavon 1000 Ml Bag) 1,000 ml GT UD [facility]; Protocol Stop: 01/26/22 13:44 Famotidine (Famotidine 20 Mg Tab) 20 mg OG BID [facility] Stop: 01/20/22 11:44 Last Admin: 12/27/21 20:54 Dose: 20 mg Documented by: Famotidine (Famotidine Susp 20 Mg/2.5 Ml Udp) 20 mg PO DAILY [facility] Stop: 01/27/22 08:59 Glycopyrrolate (Glycopyrrolate 1 Mg Tab) 2 mg PO TID PRN PRN Reason: Secretions Stop: 01/15/22 16:17 Last Admin: 12/27/21 17:35 Dose: 2 mg Documented by: Guaifenesin (Guaifenesin Sugar Free 200 Mg/10 Ml Udc) 400 mg PEG DAILY [facility] Stop: 01/16/22 08:59 Last Admin: 12/27/21 23:15 Dose: 400 mg Documented by: Guaifenesin (Guaifenesin Sugar Free 100 Mg/5 Ml Udc) 100 mg PO Q4H PRN PRN Reason: Cough Stop: 01/15/22 20:10 Last Admin: 12/27/21 17:35 Dose: 100 mg Documented by: Haloperidol (Haloperidol 0.5 Mg Tab) 0.5 mg PO Q8H PRN PRN Reason: nausea Stop: 01/23/22 13:53 Hydromorphone HCl (Hydromorphone Hcl 2 Mg Tab) 1 mg PO Q4H PRN PRN Reason: Pain Stop: 01/08/22 14:46 Last Admin: 12/28/21 05:38 Dose: 1 mg Documented by: Hydroxyzine HCl (Hydroxyzine Hcl 25 Mg Tab) 25 mg PEG Q6 PRN PRN Reason: Anxiety Stop: 01/15/22 16:17 Last Admin: 12/27/21 23:15 Dose: 25 mg Documented by: Promethazine HCl 12.5 mg/ (Sodium Chloride) 50.5 mls @ 202 mls/hr IV Q6H PRN PRN Reason: Nausea And Vomiting Stop: 01/18/22 05:57 Last Infusion: 12/26/21 11:50 Dose: Infused Documented by: Lansoprazole (Lansoprazole 30 Mg Soltab) 30 mg PEG BID [facility] Stop: 01/27/22 08:59 Levothyroxine Sodium (Levothyroxine Sodium 112 Mcg Tablet) 112 mcg PEG DAILYBB [facility] Stop: 01/16/22 06:29 Last Admin: 12/28/21 05:30 Dose: 112 mcg Documented by: Lidocaine (Lidocaine 5% 1 Patch) 1 patch TD DAILY [facility] Stop: 01/16/22 08:59 Last Admin: 12/27/21 08:08 Dose: Not Given Documented by: Lorazepam (Lorazepam 0.5 Mg Tab) 0.5 mg SL HS PRN PRN Reason: Anxiety Stop: 01/15/22 16:17 Last Admin: 12/26/21 01:18 Dose: 0.5 mg Documented by: Lorazepam (Lorazepam 0.5 Mg Tab) 0.5 mg PO Q4H PRN PRN Reason: Anxiety Stop: 01/17/22 13:21 Last Admin: 12/27/21 17:44 Dose: 0.5 mg Documented by: Losartan Potassium (Losartan Potassium 50 Mg Tab) 100 mg PEG QAM [facility] Stop: 01/16/22 08:59 Last Admin: 12/27/21 08:06 Dose: 100 mg Documented by: Miscellaneous (Remove Lidoderm Patch) 1 ea N/A DAILY@2100 [facility] Stop: 01/15/22 20:59 Last Admin: 12/27/21 20:56 Dose: Not Given Documented by: Riluzole - Non- Formulary Patient's Own Med 1 ea PO BID [facility] Stop: 01/15/22 20:59 Last Admin: 12/27/21 20:56 Dose: 1 ea Documented by: Nystatin (Nystatin Susp 500,000 U/5 Ml Udc) 10 ml PO TID [facility] Stop: 01/06/22 20:59 Last Admin: 12/27/21 21:04 Dose: Not Given Documented by: Ondansetron HCl (Ondansetron 4 Mg Od Tab) 4 mg PO Q6H [facility] Stop: 01/23/22 17:59 Last Admin: 12/28/21 05:30 Dose: 4 mg Documented by: Polyethylene Glycol (Polyethylene (Miralax) 17 Gm Pack) 17 gm GT DAILY PRN PRN Reason: constipation Stop: 01/15/22 16:17 Saccharomyces Boulardii (Saccharomyces Boulardii 250 Mg Cap) 250 mg PO DAILY [facility] Stop: 01/18/22 17:59 Last Admin: 12/27/21 12:07 Dose: 250 mg Documented by: Scopolamine (Scopolamine 1 Mg Tdsy) 1 mg TD Q3D PRN PRN Reason: secretions Stop: 01/15/22 16:17 Last Admin: 12/19/21 13:00 Dose: 1 mg Documented by: Sterile Water (Tube Feeding Water Flush) 125 ml PEG Q4H [facility] Stop: 01/16/22 13:29 Last Admin: 12/28/21 04:39 Dose: 125 ml Documented by: Sucralfate (Sucralfate 1 Gm/10 Ml Udc) 1 gm PO QID [facility] Stop: 01/21/22 12:59 Last Admin: 12/27/21 20:55 Dose: 1 gm Documented by:
[2021-12-28] MEDS: LOSARTAN POTASSIUM 50 MG TAB PEG SCH (08:46)
[2021-12-28] MEDS: NYSTATIN SUSP 500,000 U/5 ML UDC PO SCH ×2 (08:46→15:32)
[2021-12-28] MEDS: SACCHAROMYCES BOULARDII 250 MG CAP PO SCH (08:46)
[2021-12-28] MEDS: SUCRALFATE 1 GM/10 ML UDC PO SCH ×3 (08:46→17:53)
[2021-12-28] MEDS: GLYCOPYRROLATE 1 MG TAB PO PRN (08:47)
[2021-12-28] MEDS: LORazepam 0.5 MG TAB PO PRN (08:47)
[2021-12-28] MEDS: guaiFENesin SUGAR FREE 100 MG/5 ML UDC PO PRN (08:48)
[2021-12-28] MEDS: LIDOCAINE 5% 1 PATCH TD SCH (08:50)
[2021-12-28] MEDS: FAMOTIDINE 20 MG TAB OG SCH (08:50)
[2021-12-28] MEDS: RILUZOLE PO SCH (08:51)
[2021-12-28] MEDS ORDERED: LANSOPRAZOLE 30 MG SOLTAB PEG SCH (09:00)
[2021-12-28] MEDS ORDERED: FAMOTIDINE SUSP 20 MG/2.5 ML UDP PO SCH (09:00)
[2021-12-28] MEDS: CHOLESTYRAMINE LIGHT 4 GM PKT PO SCH (10:00)
--- NOTE | 2021-12-28 14:43 | Discharge Summary ---
Date of Service December 28, 2021 Admission HPI Per Admitting Provider 76 YEAR OLD WITH ALS, S/P PEG TUBE, CILD, HTN, HYPOTHYROIDISM, ETC PRESENTING FOR INCREASED SECRETIONS, EPISODES OF SHORTNESS OF BREATH. Patient d/c from [facility] end of October 2021 after evaluation of increased secretion and hypoxia. History obtained from patient's daughter and son. Patient brought to the ER for increased secretions - white, thick- seen thru patient's suction machine/wand, associated with episodes of shortness of breath. No fever/chills. On Peptamen 250cc QID via gravity with free water flushes of 100cc before and after. Also being treated for 4th episode of C diff colitis with Vanco PO- started 12/13/21 with no improvement. Patient still having about 20 loose BMs per family. On exam, patient seen resting, sitting up. Main complaint is abdominal discomfort - cramping and burning. no chest pain, dyspnea, palpitations, dizziness Admission Exam Per Admitting Provider General- oriented x 3, not in distress, speaks in sentences with no effort or accessory muscle use Head- atraumatic Eyes- PERRL, EOMI, anicteric ENT- oropharynx clear Neck- supple, no JVD, no adenopathy, no thyromegaly; carotids +2/2, no bruits appreciated Lungs- mild rales left base, clear on the right Heart- normal rate, regular rhythm; no murmur, no gallop, no rub appreciated Abdomen- normal bowel sounds, nondistended, soft, (+) PEG tube, mild tenderness, no masses or hepatosplenomegaly Extremities- no pretibial edema, no calf tenderness; peripheral pulses intact Neuro- alert, oriented x 3;(+) dysarthria; r side 3-4/5, l side 0/5 Skin- warm & dry Principal Diagnosis Increased oral secretions in the setting of ALS Diarrhea due to C. difficile UTI Chronic interstitial lung disease Nocturnal hypoxia Discharge Exam GENERAL: Alert and oriented x3. NAD, on RA. HEENT: No pallor, no icterus. Pupils equal, round and reactive to light. NECK: No JVD, no neck masses. HEART: S1 and S2 heard. Regular rate and rhythm. No murmur, no gallop. RESPIRATORY: Normal AP diameter. No accessory muscle use. No wheezing, crackles b/b ABDOMEN: Soft, bowel sounds present, nontender, no distention. PEG tube in place. NEURO: No facial droop. Speech is clear. Obeys simple commands. LUE and LLE 3/5 EXTREMITIES: No edema, no erythema seen. Discharge Data Allergies Allergy/AdvReac Type Severity Reaction Status Date / Time Iodinated Contrast Media Allergy Severe dyspnea Verified 12/16/21 15:45 azithromycin Allergy Intermediate rash Verified 12/16/21 15:45 cefaclor Allergy Intermediate hives Verified 12/16/21 15:45 erythromycin base Allergy Intermediate hives Verified 12/16/21 15:45 levalbuterol Allergy Intermediate chest pain Verified 11/29/21 08:45 minocycline Allergy Intermediate rash Verified 12/16/21 15:45 nitrofurantoin Allergy Intermediate possible Verified 12/16/21 15:45 hives or dyspnea phenazopyridine Allergy Intermediate dyspnea Verified 12/16/21 15:45 Sulfa (Sulfonamide Allergy Intermediate hives Verified 12/16/21 15:45 Antibiotics) oxycodone [From OxyContin] Allergy Unknown Unverified 12/16/21 15:52 metronidazole AdvReac Intermediate GI symptoms Verified 11/29/21 08:45 morphine AdvReac Intermediate vomiting Verified 11/29/21 08:45 levofloxacin AdvReac Mild abdominal Verified 12/16/21 15:45 pain albuterol [From Ventolin HFA] AdvReac Chest Pain Unverified 12/16/21 15:52 iodine AdvReac Anaphylaxis Unverified 12/16/21 15:52 tramadol AdvReac Confusion Unverified 12/16/21 15:52 Consultations 12/16/21 14:13 ED Decision to Admit Stat 12/16/21 17:19 Consult Gastroenterology Routine 12/21/21 15:18 Consult Palliative Care Routine Ordered Studies 12/20/21 02:29 CT abd pelvis wo con Urgent IMPRESSION: 1. No urinary calculi or hydronephrosis. 2. Suboptimal evaluation of the abdomen and pelvis on this unenhanced exam but no acute findings. No bowel obstruction. 3. Left lower lobe and lingular opacity with volume loss. Debris/mucus plugging within left lower lobe bronchi. Aspiration cannot be excluded. Hospital Course (1) ALS (amyotrophic lateral sclerosis): (2) Excessive oral secretions: 76 yo with hx of ALS, status post PEG tube, C. difficile, hypothyroidism, HTN, presented 12/16 for increased secretion and episodes of shortness of breath. #. EXCESSIVE ORAL SECRETIONS #. Concern of Aspiration Pna: Pt needed O2, R> L basal crackles, on unasyn 12/22 --> DC'd 12/23 after discussing with patient and her family (as it was exacerbating her C.diff) who are in agreement. Likely from ALS progression versus reflux. Patient receiving tube feeding. X-ray KUB reviewed. Patient had increased oral secretion and shortness of breath 12/19 evening, tube feed was stopped 12/20 patient reports improving nausea, bloating sensation, sick at stomach. c/w lansoprazole BD, pepcid, BD, sucralfate QID and tums TID. resume tube feed at low rate, still w/ heartburn s/s. GI reached out. GI evaluated earlier, PEG tube in proper location and functioning appropriately. Senior Software Manager on board, recommends continuous tube feeding, appreciate recommendation. Reached out 12/24 to change Tube feed formula per patient request. Pt not able to tolerate peptamen tube feed per Pt. Continue with suctioning every hour, as needed glycopyrrolate, scopolamine patch, on Dilaudid as needed at home. Glycopyrrolate/scopolamine can be held when secretions are thicker. Pt still complaining of heartburn after changing tube feed, d/w GI - appreciate recs. Pt started on IV PPI - symptoms seem to be improving, will switch to liquid form (to be administered via PEG) on DC D/w Palliative. #. C. difficile Patient has history of C. difficile, this is her fourth episode Fidaxomicin 12/16, Florastor. Diarrhea getting better per RN, softer stools now. D/w GI. if persistent diarrhea, get C diff test again to confirm treatment/look out for other causes. continue to monitor. 12/25 -negative C. difficile gene stools improved Plan to continue with different tube feeds, fibersource, which patient seems to be tolerating much better. Patient is at high risk of aspiration, and therefore she could not tolerate bolus feeds. Recommend Kangaroo pump and perhaps have her feedings run over 18 hours/day. #. UTI - Urine culture: Gram-negative bacilli, Enterococcus sensitive to ceftriaxone -s/p antibiotic #. CHRONIC INTERSTITIAL LUNG DISEASE - CXR: chronic L pleural effusion Nocturnal hypoxia Patient will be discharged with supplemental oxygen to use at night #. HYPERTENSION -continue Losartan #. DVT prophylaxis: Heparin subcu every 12 hours #. Disposition Lives at home, being taken care of by her and also her daughter As per family, they still would like the patient to return home with their care when medically stable CM to assist with DC planning. Palliative medicine has been involved, and there was plan for home hospice. However family and patient changed their mind, and do not wish at this time to go home with hospice care, and instead want to go home with home health. Plan to discharge patient today, once tube feeds and pump available for the patient at home. Patient and family understand very poor prognosis. Total Time Total Time Spent Total Time Spent (In Minutes): 40 Discharge Plan Discharge Items Patient Disposition: Home - Home Health Services Reason For Visit: INCREASED ORAL SECRETIONS, ALS Discharge Diagnosis: Increased oral secretions in the setting of ALS Diarrhea due to C. difficile UTI Chronic interstitial lung disease Activity: Per Instructions section Non-emergency contact: Primary Care Provider Call non-emergency contact if: you have any medication questions and your symptoms worsen Follow-up/Referrals: Amina Wells MD [Outside Practitioners] - (Date & Time 01/08/2022 4:00 PM Provider Amina Wells MD Department Palliative Medicine, [facility] ) Devonte Sweeney DO [Primary Care Provider] - (Date & Time 01/01/2022 11:00 AM Provider Devonte Sweeney DO Department Family Practice [facility] ) Diet: Other - See Diet Comment Addtl Attending Provider Instructions: Follow-up with your primary care providers. Appointments were scheduled for you as above. If you need to reschedule them, please call and do so at your convenience. Pending Studies at Discharge: No Stand-Alone Forms: [employer], Smoking Cessation Medications and DC Order Prescriptions: New famotidine 40 mg/5 mL (8 mg/mL) Suspension 40 mg PO DAILY Qty: 50 RF: 0 sucralfate 100 mg/mL Suspension 1 g PO QID Qty: 400 RF: 0 Saccharomyces boulardii [Florastor] 250 mg Capsule 250 mg PO DAILY Qty: 10 RF: 0 hydromorphone [Dilaudid] 2 mg Tablet 1 mg PO Q4H PRN (Reason: pain) Qty: 7 RF: 0 lorazepam 0.5 mg Tablet 0.5 mg PO Q4H PRN (Reason: anxiety) Qty: 10 RF: 0 cholestyramine-aspartame [Cholestyramine Light] 4 gram Powder In Packet 4 g PO DAILY@1000 Qty: 60 RF: 0 nystatin 100,000 unit/mL Suspension 10 ml PO TID Qty: 60 RF: 0 Continued losartan 50 mg tablet 100 mg feeding tube QAM RF: 0 glycopyrrolate 2 mg tablet 2 mg PO TID RF: 0 levothyroxine 112 mcg tablet 112 mcg feeding tube DAILYBB RF: 0 ipratropium-albuterol 0.5 mg-3 mg(2.5 mg base)/3 mL solution for nebulization 3 ml INHALATION Q6H PRN (Reason: Shortness Of Breath Or Wheezing) RF: 0 hydroxyzine HCl 25 mg tablet 25 mg feeding tube TID PRN (Reason: Itching) RF: 0 riluzole 50 mg tablet 50 mg PO BID RF: 0 polyethylene glycol 3350 [Miralax] 17 gram Powder In Packet 17 g PO DAILY PRN (Reason: constipation) 30 Days Qty: 30 RF: 0 lidocaine 5 % Adhesive Patch,Medicated 1 patch TOPICAL DAILY RF: 0 Lortab Elixir 10-300 mg/15 mL solution 15 ml PO Q8H PRN (Reason: pain) Qty: 473 RF: 0 scopolamine base 1 mg over 3 days patch 3 day 1 patch transdermal Q3D RF: 0 albuterol sulfate 2.5 mg /3 mL (0.083 %) solution for nebulization 2.5 mg inhalation Q4H PRN (Reason: Wheezing) RF: 0 ondansetron HCl 4 mg tablet 4 mg PO Q6H RF: 0 dicyclomine 20 mg tablet 20 mg PO Q6H RF: 0 clotrimazole 1 % solution 1 applic TOPICAL BID PRN (Reason: Rash) RF: 0 hydromorphone 1 mg/mL liquid 1 mg PO Q4H PRN (Reason: Pain) RF: 0 guaifenesin 200 mg/5 mL Liquid 400 mg feeding tube Q6H RF: 0 levocetirizine 5 mg Tablet 5 mg PO HS RF: 0 menthol-zinc oxide [Calmoseptine] 0.44-20.6 % Ointment 1 applic TOPICAL QID PRN (Reason: Pain) RF: 0 Probiotic 3 billion cell Capsule 0 mmu cells PO HS RF: 0 Changed lorazepam 0.5 mg tablet 1 mg PO Q4H PRN (Reason: Anxiety) Qty: 0 RF: 0 lansoprazole 30 mg tablet,disintegrat, delay rel 30 mg feeding tube BID Qty: 0 RF: 0 Discontinued Peptamen 1.5 Liquid 1 ea feeding tube Q6H RF: 0 vancomycin 50 mg/mL Recon Soln 125 mg feeding tube Q6H RF: 0 Discharge Orders: Discharge Order (Routine); Ordered 12/28/21 Ordered By: Adriel Jeffries Admission Data Admit Date/Time: 12/16/21 14:29 Attending Provider: Adriel Jeffries Admit Provider: Bill Nuñez Primary Care Provider: Devonte Sweeney Other Providers: Bill Nuñez ; Tevin Calix ; Julianne Ivey ; Shar Rivera ; Beth Denis ; Darius Franco ; Kaitlyn Chung ; Cayla Cat ; Augusto Fraga ; Dixie Melgar ; Candida Cisneros ; Sanaz Sharp ; Layla Ace ; Keisha Morgan ; [facility] ; Rosa Iyer ; Torres Rosen
== END 2021-12-28 18:20 | disposition home health service (06) | DRG 56 ==
LOC: ED 12:14 → 2W 14:29 → SUATTDRO 14:29 → 2W 16:04

== ENCOUNTER 2022-01-10 12:31 | Inpatient (IN) ==
[2022-01-10] MEDS ORDERED: PIPERACILL/TAZOBAC CONSULT ACTIVE PRN (12:55)
[2022-01-10] MEDS ORDERED: PIPERACILLIN/TAZOBACTAM 4.5 GM/120 ML BAG IV ONE (12:55)
[2022-01-10] MEDS ORDERED: SODIUM CHLORIDE 0.9% 1000ML 1,000 ML IV SCH (13:00)
--- NOTE | 2022-01-10 13:00 | Emergency Department Note ---
Impression & Plan Acute UTI (urinary tract infection), Weakness, Acute hyponatremia ED Provider Note NAME: KIANNA MCKEON AGE: 76 SEX: F : 1945 ARRIVES VIA: Ambulance INFORMANT: Patient, EMS ED PROVIDER(S): Delmar Ireland DO CHIEF COMPLAINT: weak HPI: Patient is a 76-year-old female who presents the ER with a past medical history of ALS. Patient followed up with a PCP and has questionable UTI. She admits to right lower quadrant abdominal pain and urinary symptoms. She also admits to some shortness of breath. She denies any headache or change in vision. She denies any chest pain. History is obtained by her shaking her head yes and no. Otherwise it is limited secondary to current state. ROS: See above HPI for pertinent positives & negatives. A total of 10 systems reviewed and were otherwise negative. PAST MEDICAL HISTORY:See Below PAST SURGICAL HISTORY:See Below FAMILY HISTORY:See Below SOCIAL HISTORY:See Below HOME MEDICATIONS:See Below ALLERGIES:See Below VITALS:See Below PHYSICAL EXAMINATION: GENERAL: Lying in bed, chronically ill-appearing, disheveled EYE EXAM: normal conjunctiva. PERRL and EOM's grossly intact. OROPHARYNX: mucous membranes are dry NECK: supple, no nuchal rigidity, no adenopathy, non-tender LUNGS: Clear to auscultation. Normal chest wall mechanics HEART: no murmurs, S1 normal and S2 normal ABDOMEN: abdomen soft, non-tender, normo-active bowel sounds, no masses, no rebound or guarding. UPPER EXTREMITIES: upper extremities are grossly normal. LOWER EXTREMITIES: No pitting edema. NEURO EXAM: Awake alert and able to shake her head yes and no, intermittently mumbling but difficult to understand, wiggles toes on command, able to grasp bilaterally with upper extremities but little to no other movement. MEDICAL DECISION MAKING: Patient is a 76-year-old female with a past medical history of ALS the presents the ER for weakness and diminished mentation with a UTI. IV was established blood work was obtained. Patient was given IV fluids and IV antibiotics. Labs show no significant leukocytosis. Mild anemia 11.3 consistent with previous. BMP with mild hyponatremia 133. LFTs bilirubin and troponin were negative. Pro-Kavon was negative. UA suggest a clear UTI with nitrates leuks whites and bacteria. UA culture is already in [facility] but I did not have access to initially. Patient was given a dose of Zosyn. COVID-negative. CT abdomen pelvis as well as head was negative. Discussed with at bedside and the hospitalist and patient was admitted to [facility] service for further evaluation. Discussed with Pt concerning signs and symptoms to watch out for. Pt was instruc shelbie to follow up with their PCP and discussed with the patient their option to return to the ED at anytime for persistent or worsening symptoms. The appropriate anticipatory guidance and out-patient management, including indications for return to the emergency department, were explained at length to the patient and understood. Triage Nursing notes reviewed. Limited review of prior medical records performed Vital Signs: reviewed and remarkable for HTN and febrile Differential diagnosis: Differential diagnosis includes etiologies such as sepsis, UTI, pneumonia, metabolic, electrolyte abnormalities, cardiac sources, intracerebral event, toxi cologic, neurological, as well as others were entertained. ER treatment provided: See below Diagnostics interpreted by me: ECG: Sinus rhythm rate 77 Left axis No PVCs QTC 441 Cardiac Monitoring: An order was placed for continuous cardiac monitoring. The monitor shows a rate of 82 with sinus rhythm. Laboratory studies: As stated above and show below. Imaging studies: CT head, abdomen pelvis were unremarkable Portable AP upright 1 view the chest was unremarkable Consultation(s): Discussed with the hospitalist for further evaluation Procedures: none Critical Care: None Past Med/Surg History Medical History ALS (amyotrophic lateral sclerosis) Cancer left breast (2015) s/p left lumpectomy/XRT, no chemo Cervical stenosis of spinal canal Diarrhea GERD (gastroesophageal reflux disease) controlled, stable. Patient sleeps elevated HS. 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) "Abnormal left breast mammogram Status post stereotactic biopsy 11/14/2015 revealing DCIS grade 1 Estrogen receptor positive and progesterone receptor positive Status post needle localization lumpectomy 12/20/2015 Stage pTis pNX Status post completion of radiation therapy 03/01/2016 received 3850 cGy utilizing accelerated partial breast irradiation." On 03/14/16 11:36 Ese Cabrera wrote "Abnormal left breast mammogram Status post stereotactic biopsy 11/14/2015 revealing DCIS grade 1 Estrogen receptor positive and progesterone receptor positive Status post needle localization lumpectomy 12/20/2015 Stage pTis pNX Status post completion of radiation therapy 03/01/2016 received 3850 cGy utilizing accelerated partial breast irradiation." On 02/01/16 11:23 Ese Cabrera wrote "Abnormal left breast mammogram Status post stereotactic biopsy 11/14/2015 revealing DCIS grade 1 Estrogen receptor positive and progesterone receptor positive Status post needle localization lumpectomy 12/20/2015 Stage pTis pNX" Lab test negative for COVID-19 virus Nausea Osteoarthritis Palliative care encounter SOB (shortness of breath) Surgical History H/O foot surgery R ORIF History of appendectomy History of carpal tunnel release R/L History of colectomy D/T DIVERTICULITIS History of colonoscopy MULTIPLE History of D&C D&C, hysteroscopy: 10/24/17: LMA# 4 at [facility] History of esophagogastroduodenoscopy (EGD) History of lumpectomy of left breast 2015 History of tonsillectomy S/P percutaneous endoscopic gastrostomy (PEG) tube placement Family History Mother Breast cancer Social History Smoking Status: Never smoker Tobacco Type: Cigarettes Second Hand Exposure: No; Hx Alcohol Use: No Hx Substance Use: No Preferred Language: Congolese Communication Ability: Effective Log Manager Required: No Beliefs That Will Affect Care: None marital status: Current Living Situation: Other Current Living Situation Comment: with and daughter Feels Safe at Home: Yes Assistive Devices: Mechanical Lift and Oxygen - Continuous Allergies Allergies Allergy/AdvReac Type Severity Reaction Status Date / Time Iodinated Contrast Media Allergy Severe dyspnea Verified 01/10/22 15:33 azithromycin Allergy Intermediate rash Verified 01/10/22 15:33 cefaclor Allergy Intermediate hives Verified 01/10/22 15:33 erythromycin base Allergy Intermediate hives Verified 01/10/22 15:33 levalbuterol Allergy Intermediate chest pain Verified 01/10/22 15:33 minocycline Allergy Intermediate rash Verified 01/10/22 15:33 nitrofurantoin Allergy Intermediate possible Verified 01/10/22 15:33 hives or dyspnea phenazopyridine Allergy Intermediate dyspnea Verified 01/10/22 15:33 Sulfa (Sulfonamide Allergy Intermediate hives Verified 01/10/22 15:33 Antibiotics) oxycodone [From OxyContin] Allergy Unknown Unverified 01/10/22 15:33 metronidazole AdvReac Intermediate GI symptoms Verified 01/10/22 15:33 morphine AdvReac Intermediate vomiting Verified 01/10/22 15:33 levofloxacin AdvReac Mild abdominal Verified 01/10/22 15:33 pain albuterol [From Ventolin HFA] AdvReac Chest Pain Unverified 01/10/22 15:33 iodine AdvReac Anaphylaxis Unverified 01/10/22 15:33 tramadol AdvReac Confusion Unverified 01/10/22 15:33 Home Meds Home Medications Medication Instructions Recorded Confirmed losartan 50 mg tablet 100 mg FEEDING TUBE QAM 07/08/19 01/10/22 lidocaine 5 % topical patch 1 patch TOPICAL DAILY PRN 07/22/21 01/10/22 glycopyrrolate 2 mg tablet 2 mg FEEDING TUBE TID 11/22/21 01/10/22 hydroxyzine HCl 25 mg tablet 25 mg FEEDING TUBE TID PRN 11/22/21 01/10/22 levothyroxine 112 mcg tablet 112 mcg FEEDING TUBE DAILYBB 11/22/21 01/10/22 riluzole 50 mg tablet 50 mg FEEDING TUBE BID 11/22/21 01/10/22 albuterol sulfate 2.5 mg INHALATION Q4H PRN 12/16/21 01/10/22 dicyclomine 20 mg tablet 20 mg FEEDING TUBE Q6H PRN 12/16/21 01/10/22 lactobacillus combination no.4 3 0 mmu cells FEEDING TUBE HS 12/16/21 01/10/22 billion cell capsule (Probiotic) levocetirizine 5 mg tablet (Xyzal) 5 mg FEEDING TUBE HS PRN 12/16/21 01/10/22 menthol 0.44 %-zinc oxide 20.6 % 1 applic TOPICAL QID PRN 12/16/21 01/10/22 topical ointment (Calmoseptine) ondansetron HCl 4 mg tablet 4 mg FEEDING TUBE Q6H 04/17/22 05/12/22 scopolamine base 1 mg over 3 days 1 patch TRANSDERMAL Q3D 12/16/21 01/10/22 transdermal patch Guaifenesin 400mg/20ml 20 ml FEEDING TUBE Q4H PRN 01/10/22 01/10/22 Saccharomyces boulardii 250 mg 250 mg FEEDING TUBE QAM 01/10/22 01/10/22 capsule (Florastor) cholestyramine (with sugar) 4 gram 0.5 - 1 ea FEEDING TUBE BID 01/10/22 01/10/22 powder for susp in a packet famotidine 40 mg/5 mL (8 mg/mL) 40 mg FEEDING TUBE QAM 01/10/22 01/10/22 oral suspension fentanyl 12 mcg/hr transdermal 12 mcg TRANSDERMAL Q72H 01/10/22 01/10/22 patch fluconazole 100 mg tablet 100 mg FEEDING TUBE QAM 01/10/22 01/10/22 fluticasone propionate 50 2 spray INTRANASAL DAILY PRN 01/10/22 01/10/22 mcg/actuation nasal spray,suspension gabapentin 100 mg capsule 100 mg FEEDING TUBE TID 01/10/22 01/10/22 hydrocortisone 2.5 % topical cream 1 applic MD BID PRN 01/10/22 01/10/22 with perineal applicator hydromorphone 2 mg tablet 1 mg FEEDING TUBE Q4H PRN 01/10/22 01/10/22 (Dilaudid) hyoscyamine sulfate 0.125 mg 0.125 mg FEEDING TUBE DAILY PRN 01/10/22 01/10/22 sublingual tablet lorazepam 1 mg tablet 1 mg FEEDING TUBE QID PRN 01/10/22 01/10/22 mirtazapine 7.5 mg tablet 7.5 mg FEEDING TUBE HS PRN 01/10/22 01/10/22 nystatin 100,000 unit/mL oral 10 ml PO TID PRN 01/10/22 01/10/22 suspension simethicone 80 mg chewable tablet 80 mg FEEDING TUBE DAILY PRN 01/10/22 01/10/22 sucralfate 100 mg/mL oral 1 g PO QID 01/10/22 01/10/22 suspension Previous Rx's Medication Instructions Recorded lansoprazole 30 mg delayed 30 mg FEEDING TUBE BID #0 tab 12/28/21 release,disintegrating tablet Results & Data (ED) Vital Signs Vital Signs - 24 hr 01/10/22 12:42 01/10/22 12:55 01/10/22 13:20 Temperature 37.6 C H Temperature Source Axillary Pulse Rate 80 Pulse Rate [Apical] Respiratory Rate 24 91 H Respiratory Effort / Characteristics Non-Labored Spontaneous Respiratory Depth Blood Pressure 148/65 H Blood Pressure [Left Arm] Blood Pressure Mean 92 Blood Pressure Mean [Left Arm] Pulse Oximetry 92 92 Oxygen Delivery Method Room Air Room Air Room Air Oxygen Flow Rate Sepsis Recent Fever Within 48 Hours No Sepsis New/Unexplained Change in Mental Status No Sepsis Action Taken by Nursing No Action Required 01/10/22 13:21 01/10/22 16:33 01/10/22 16:58 Temperature Temperature Source Pulse Rate Pulse Rate [Apical] 74 100 H 106 H Respiratory Rate 14 23 18 Respiratory Effort / Characteristics Non-Labored Spontaneous Respiratory Depth Normal Blood Pressure Blood Pressure [Left Arm] 150/60 H 169/93 H 169/93 H Blood Pressure Mean Blood Pressure Mean [Left Arm] 90 118 118 Pulse Oximetry 92 91 Oxygen Delivery Method Room Air Room Air Oxygen Flow Rate Sepsis Recent Fever Within 48 Hours Sepsis New/Unexplained Change in Mental Status Sepsis Action Taken by Nursing 01/10/22 17:02 01/10/22 17:03 Temperature Temperature Source Pulse Rate Pulse Rate [Apical] Respiratory Rate Respiratory Effort / Characteristics Respiratory Depth Blood Pressure Blood Pressure [Left Arm] 186/84 H Blood Pressure Mean Blood Pressure Mean [Left Arm] 118 Pulse Oximetry 90 Oxygen Delivery Method Nasal Cannula Oxygen Flow Rate 3 Sepsis Recent Fever Within 48 Hours Sepsis New/Unexplained Change in Mental Status Sepsis Action Taken by Nursing Laboratory Data Result diagrams: 01/10/22 14:13 01/10/22 12:50 Lab Results 01/10/22 01/10/22 01/10/22 Range/Units 12:50 12:50 12:50 WBC Cancelled RBC Cancelled Hgb Cancelled Hct Cancelled MCV Cancelled MCH Cancelled MCHC Cancelled RDW Std Deviation Cancelled RDW Coeff of Marcela Cancelled Plt Count Cancelled MPV Cancelled Immature Gran % (Auto) Cancelled Neut % (Auto) Cancelled Lymph % (Auto) Cancelled [place] % (Auto) Cancelled Eos % (Auto) Cancelled Baso % (Auto) Cancelled Neut # (Auto) Cancelled Lymph # (Auto) Cancelled [place] # (Auto) Cancelled Eos # (Auto) Cancelled Baso # (Auto) Cancelled Immature Gran # (Auto) Cancelled Absolute Nucleated RBC Cancelled Nucleated RBC % (auto) Cancelled Neutrophils % (Manual) Cancelled Band Neutrophils % Cancelled Lymphocytes % (Manual) Cancelled Prolymphocyte % Cancelled Reactive Lymphs % (Man) Cancelled Monocytes % (Manual) Cancelled Eosinophils % (Manual) Cancelled Basophils % (Manual) Cancelled Metamyelocytes % (Man) Cancelled Myelocytes % (Man) Cancelled Promyelocytes % (Man) Cancelled Blast Cells % (Manual) Cancelled Plasma Cell % (Manual) Cancelled Other Cells % Cancelled Nucleated RBC % Cancelled Neutrophils # (Manual) Cancelled Band Neutrophils # Cancelled Total Absolute Neuts Cancelled Lymphocytes # (Manual) Cancelled Prolymphocyte # Cancelled Reactive Lymphs # Cancelled Total Abs Lymphocytes Cancelled Monocytes # (Manual) Cancelled Eosinophils # (Manual) Cancelled Basophils # (Manual) Cancelled Metamyelocytes # (Man) Cancelled Myelocytes # (Manual) Cancelled Promyelocytes # (Man) Cancelled Blast Cells # (Man) Cancelled Plasma Cell # (Manual) Cancelled Other Cells # Cancelled Nucleated RBCs # (Man) Cancelled Hypersegmented Neuts Cancelled Hyposegmented Neuts Cancelled Hypogranular Neuts Cancelled Large Granular Lymphs Cancelled # Lrg Granular Lymphs Cancelled Hairy Cells Cancelled Smudge Cells Cancelled Toxic Granulation Cancelled Toxic Vacuolation Cancelled Dohle Bodies Cancelled Christin Rods Cancelled Platelet Estimate Cancelled Hypogranular Platelets Cancelled Clumped Platelets Cancelled Giant Platelets Cancelled Platelet Satelliting Cancelled RBC Morphology Cancelled Polychromasia Cancelled Hypochromasia Cancelled Poikilocytosis Cancelled Basophilic Stippling Cancelled Anisocytosis Cancelled Microcytosis Cancelled Macrocytosis Cancelled Spherocytes Cancelled Pappenheimer Bodies Cancelled Sickle Cells Cancelled Target Cells Cancelled Tear Drop Cells Cancelled Ovalocytes Cancelled Stomatocytes Cancelled [place] Bodies Cancelled Echinocytes Cancelled Acanthocytes (Spur) Cancelled Rouleaux Cancelled RBC Agglutinates Cancelled Schistocytes Cancelled RBC Morph Comment Cancelled Sezary Cell Cancelled PT 9.8 (9.0-12.0) Seconds INR 0.9 (0.9-1.1) APTT 22.0 (21.0-31.0) Seconds PTT Ratio 0.8 Sodium 133 L (136-145) mmol/L Potassium 5.0 (3.5-5.1) mmol/L Chloride 94 L (98-107) mmol/L Carbon Dioxide 32 (21-32) mmol/L Anion Gap 7 (3-11) BUN 42 H (6-23) mg/dl Creatinine 0.76 (0.6-1.2) mg/dl Est Cr Clr Drug Dosing 58.0 ml/min Est GFR ( Amer) 87.7 ml/min Est GFR (Non-Af Amer) 75.7 ml/min BUN/Creatinine Ratio 55.3 H (10-20) Glucose 110 H (70-99(Fasting)) mg/dl Lactate (0.4-2.0) mmol/L Calcium 10.0 (8.5-10.1) mg/dl Magnesium 1.9 (1.7-2.4) mg/dl Total Bilirubin 0.4 (0.2-1.0) mg/dl AST 19 (13-39) U/L ALT 26 (7-52) U/L Alkaline Phosphatase 114 H (34-104) U/L Troponin I High Sens 10.4 (0-14) pg/ml Total Protein 6.8 (6.0-8.3) gm/dl Albumin 3.8 (3.4-5.0) gm/dl Globulin 3.0 (2.5-4.0) gm/dl Albumin/Globulin Ratio 1.3 (0.9-2) Procalcitonin (0-0.5) ng/ml Urine Color Urine Appearance (Clear) Urine pH (4.5-7.5) Ur Specific [place] (1.000-1.030) Urine Protein (Negative) Urine Glucose (UA) (Negative) Urine Ketones (Negative) Urine Blood (Negative) Urine Nitrite (Negative) Urine Bilirubin (Negative) Urine Urobilinogen (Negative) Ur Leukocyte Esterase (Negative) Urine WBC (Auto) (0-5) /hpf Urine RBC (Auto) (0-4) /hpf U Hyaline Cast (Auto) (0-5) /lpf U Epithel Cells (Auto) (0-5) /lpf Urine Bacteria (Auto) (Negative) Calcium Oxalate Crystal (None Prsent) Urine Other SARS-CoV-2, RNA, NAAT (NEGATIVE) 01/10/22 01/10/22 01/10/22 Range/Units 12:50 12:50 13:00 WBC RBC Hgb Hct MCV MCH MCHC RDW Std Deviation RDW Coeff of Marcela Plt Count MPV Immature Gran % (Auto) Neut % (Auto) Lymph % (Auto) [place] % (Auto) Eos % (Auto) Baso % (Auto) Neut # (Auto) Lymph # (Auto) [place] # (Auto) Eos # (Auto) Baso # (Auto) Immature Gran # (Auto) Absolute Nucleated RBC Nucleated RBC % (auto) Neutrophils % (Manual) Band Neutrophils % Lymphocytes % (Manual) Prolymphocyte % Reactive Lymphs % (Man) Monocytes % (Manual) Eosinophils % (Manual) Basophils % (Manual) Metamyelocytes % (Man) Myelocytes % (Man) Promyelocytes % (Man) Blast Cells % (Manual) Plasma Cell % (Manual) Other Cells % Nucleated RBC % Neutrophils # (Manual) Band Neutrophils # Total Absolute Neuts Lymphocytes # (Manual) Prolymphocyte # Reactive Lymphs # Total Abs Lymphocytes Monocytes # (Manual) Eosinophils # (Manual) Basophils # (Manual) Metamyelocytes # (Man) Myelocytes # (Manual) Promyelocytes # (Man) Blast Cells # (Man) Plasma Cell # (Manual) Other Cells # Nucleated RBCs # (Man) Hypersegmented Neuts Hyposegmented Neuts Hypogranular Neuts Large Granular Lymphs # Lrg Granular Lymphs Hairy Cells Smudge Cells Toxic Granulation Toxic Vacuolation Dohle Bodies Christin Rods Platelet Estimate Hypogranular Platelets Clumped Platelets Giant Platelets Platelet Satelliting RBC Morphology Polychromasia Hypochromasia Poikilocytosis Basophilic Stippling Anisocytosis Microcytosis Macrocytosis Spherocytes Pappenheimer Bodies Sickle Cells Target Cells Tear Drop Cells Ovalocytes Stomatocytes [place] Bodies Echinocytes Acanthocytes (Spur) Rouleaux RBC Agglutinates Schistocytes RBC Morph Comment Sezary Cell PT (9.0-12.0) Seconds INR (0.9-1.1) APTT (21.0-31.0) Seconds PTT Ratio Sodium (136-145) mmol/L Potassium (3.5-5.1) mmol/L Chloride (98-107) mmol/L Carbon Dioxide (21-32) mmol/L Anion Gap (3-11) BUN (6-23) mg/dl Creatinine (0.6-1.2) mg/dl Est Cr Clr Drug Dosing ml/min Est GFR ( Amer) ml/min Est GFR (Non-Af Amer) ml/min BUN/Creatinine Ratio (10-20) Glucose (70-99(Fasting)) mg/dl Lactate 1.1 (0.4-2.0) mmol/L Calcium (8.5-10.1) mg/dl Magnesium (1.7-2.4) mg/dl Total Bilirubin (0.2-1.0) mg/dl AST (13-39) U/L ALT (7-52) U/L Alkaline Phosphatase (34-104) U/L Troponin I High Sens (0-14) pg/ml Total Protein (6.0-8.3) gm/dl Albumin (3.4-5.0) gm/dl Globulin (2.5-4.0) gm/dl Albumin/Globulin Ratio (0.9-2) Procalcitonin 0.21 (0-0.5) ng/ml Urine Color Yellow Urine Appearance Cloudy A (Clear) Urine pH 7.5 (4.5-7.5) Ur Specific [place] 1.014 (1.000-1.030) Urine Protein Negative (Negative) Urine Glucose (UA) Negative (Negative) Urine Ketones Negative (Negative) Urine Blood Negative (Negative) Urine Nitrite Positive A (Negative) Urine Bilirubin Negative (Negative) Urine Urobilinogen Negative (Negative) Ur Leukocyte Esterase 3+ H (Negative) Urine WBC (Auto) >30 H (0-5) /hpf Urine RBC (Auto) 0-4 (0-4) /hpf U Hyaline Cast (Auto) 0 (0-5) /lpf U Epithel Cells (Auto) >30 H (0-5) /lpf Urine Bacteria (Auto) 4+ H (Negative) Calcium Oxalate Crystal Present A (None Prsent) Urine Other FUNGUS SARS-CoV-2, RNA, NAAT (NEGATIVE) 01/10/22 01/10/22 Range/Units 14:13 15:59 WBC 8.49 RBC 3.92 L Hgb 11.3 L Hct 35.7 L MCV 91.1 MCH 28.8 MCHC 31.7 L RDW Std Deviation 44.7 RDW Coeff of Marcela 13.5 Plt Count 270 MPV 11.2 H Immature Gran % (Auto) 0.5 Neut % (Auto) 77.7 Lymph % (Auto) 11.8 [place] % (Auto) 6.5 Eos % (Auto) 3.3 Baso % (Auto) 0.2 Neut # (Auto) 6.60 H Lymph # (Auto) 1.00 L [place] # (Auto) 0.55 Eos # (Auto) 0.28 Baso # (Auto) 0.02 Immature Gran # (Auto) 0.04 H Absolute Nucleated RBC Nucleated RBC % (auto) Neutrophils % (Manual) Band Neutrophils % Lymphocytes % (Manual) Prolymphocyte % Reactive Lymphs % (Man) Monocytes % (Manual) Eosinophils % (Manual) Basophils % (Manual) Metamyelocytes % (Man) Myelocytes % (Man) Promyelocytes % (Man) Blast Cells % (Manual) Plasma Cell % (Manual) Other Cells % Nucleated RBC % Neutrophils # (Manual) Band Neutrophils # Total Absolute Neuts Lymphocytes # (Manual) Prolymphocyte # Reactive Lymphs # Total Abs Lymphocytes Monocytes # (Manual) Eosinophils # (Manual) Basophils # (Manual) Metamyelocytes # (Man) Myelocytes # (Manual) Promyelocytes # (Man) Blast Cells # (Man) Plasma Cell # (Manual) Other Cells # Nucleated RBCs # (Man) Hypersegmented Neuts Hyposegmented Neuts Hypogranular Neuts Large Granular Lymphs # Lrg Granular Lymphs Hairy Cells Smudge Cells Toxic Granulation Toxic Vacuolation Dohle Bodies Christin Rods Platelet Estimate Hypogranular Platelets Clumped Platelets Giant Platelets Platelet Satelliting RBC Morphology Polychromasia Hypochromasia Poikilocytosis Basophilic Stippling Anisocytosis Microcytosis Macrocytosis Spherocytes Pappenheimer Bodies Sickle Cells Target Cells Tear Drop Cells Ovalocytes Stomatocytes [place] Bodies Echinocytes Acanthocytes (Spur) Rouleaux RBC Agglutinates Schistocytes RBC Morph Comment Sezary Cell PT (9.0-12.0) Seconds INR (0.9-1.1) APTT (21.0-31.0) Seconds PTT Ratio Sodium (136-145) mmol/L Potassium (3.5-5.1) mmol/L Chloride (98-107) mmol/L Carbon Dioxide (21-32) mmol/L Anion Gap (3-11) BUN (6-23) mg/dl Creatinine (0.6-1.2) mg/dl Est Cr Clr Drug Dosing ml/min Est GFR ( Amer) ml/min Est GFR (Non-Af Amer) ml/min BUN/Creatinine Ratio (10-20) Glucose (70-99(Fasting)) mg/dl Lactate (0.4-2.0) mmol/L Calcium (8.5-10.1) mg/dl Magnesium (1.7-2.4) mg/dl Total Bilirubin (0.2-1.0) mg/dl AST (13-39) U/L ALT (7-52) U/L Alkaline Phosphatase (34-104) U/L Troponin I High Sens (0-14) pg/ml Total Protein (6.0-8.3) gm/dl Albumin (3.4-5.0) gm/dl Globulin (2.5-4.0) gm/dl Albumin/Globulin Ratio (0.9-2) Procalcitonin (0-0.5) ng/ml Urine Color Urine Appearance (Clear) Urine pH (4.5-7.5) Ur Specific [place] (1.000-1.030) Urine Protein (Negative) Urine Glucose (UA) (Negative) Urine Ketones (Negative) Urine Blood (Negative) Urine Nitrite (Negative) Urine Bilirubin (Negative) Urine Urobilinogen (Negative) Ur Leukocyte Esterase (Negative) Urine WBC (Auto) (0-5) /hpf Urine RBC (Auto) (0-4) /hpf U Hyaline Cast (Auto) (0-5) /lpf U Epithel Cells (Auto) (0-5) /lpf Urine Bacteria (Auto) (Negative) Calcium Oxalate Crystal (None Prsent) Urine Other SARS-CoV-2, RNA, NAAT NEGATIVE (NEGATIVE) Administered Medications Discontinued Medications Hydromorphone HCl (Hydromorphone Hcl 2 Mg Tab) 1 mg PO NOW STA Stop: 01/10/22 17:21 Last Admin: 01/10/22 18:21 Dose: 1 mg Documented by: [id number] Sodium Chloride (Nss 1000ml) 1,000 mls @ 999 mls/hr IV .[id number] [id number] Stop: 01/10/22 14:00 Last Infusion: 01/10/22 16:32 Dose: 0 mls/hr Documented by: [id number] Admin: 01/10/22 13:18 Dose: 999 mls/hr Documented by: [id number] Piperacillin Sod/Tazobactam Sod (Zosyn) 4.5 gm in 120 mls @ 240 mls/hr IV NOW ONE Stop: 01/10/22 13:24 Last Infusion: 01/10/22 16:33 Dose: 0 mls/hr Documented by: [id number] Admin: 01/10/22 13:18 Dose: 240 mls/hr Documented by: [id number] Cefepime HCl 2,000 mg/ Syringe 20 mls @ 5 mls/min IV NOW STA; Protocol Stop: 01/10/22 15:06 Last Admin: 01/10/22 16:29 Dose: 5 mls/min Documented by: [id number] Imaging Data Radiologist's Impression: Abdomen/Pelvis CT 01/10/22 12:55 CT abd pelvis wo con CLINICAL HISTORY: weak TECHNIQUE: Helical axial images of the abdomen and pelvis were obtained. Automated dose lowering techniques and/or adjustment according to patient size were utilized for this exam. This exam was performed without intravenous contrast. COMPARISON: Comparison is made to CT abdomen pelvis 12/20/2021 FINDINGS: Lower chest: A small left pleural effusion is seen. Liver: Multiple hepatic cysts are seen. Gallbladder and biliary tree: Patient is status post cholecystectomy. No intra- or extrahepatic biliary ductal dilation. Pancreas: Unremarkable, no focal lesions. Spleen: Unremarkable. Adrenals: Unremarkable. Kidneys and ureters: Unremarkable. Bladder: Limited evaluation due to underdistention. Reproductive organs: Unremarkable. Bowel: Postresection changes are seen in the bowel. A gastrostomy tube is seen. Mild soft tissue stranding is seen along the tract but no significant inflammation or abscess formation is seen. The appendix is not definitely visualized. Lymph nodes Retroperitoneal: Unremarkable. Mesenteric: Unremarkable. Pelvic: Unremarkable. Peritoneum: Normal. Vessels: Atherosclerotic calcifications are seen. Abdominal wall: A fat-containing umbilical hernia is seen. Bones: Degenerative changes in the visualized spine. IMPRESSION: No evidence of acute abnormality. Gastrostomy tube terminates within the stomach. ACT 112: Negative or not required by law. Electronically signed by: Mike Mac M.D. 01/10/2022 2:02 PM Chest X-Ray 01/10/22 12:55 XR chest 1V portable HISTORY: SEPSIS COMPARISON: Chest 12/22/2021. FINDINGS: Rotated study. Cervical spinal fusion hardware is again noted. Stable volume loss within the left hemithorax with left basilar density and a small left pleural effusion. This remains unchanged. The heart remains mildly enlarged. No pneumothorax. The right lung is essentially clear. No evidence for pulmonary edema. IMPRESSION: Stable volume loss within the left hemithorax with a left basilar densities/effusion. This remains unchanged. ACT 112: Negative or not required by law. Electronically signed by: Chencho Leonardo M.D. 01/10/2022 1:[address] 01/10/22 12:55 CT head/brain wo con CLINICAL HISTORY: 76 years-old Female with ams. Acutely altered mental status TECHNIQUE: Multiple axial CT images of the head were obtained without contrast. A dose lowering technique was utilized adhering to the principles of ALARA. CT DOSE: 907.30 mGy.cm COMPARISON: Head CT 07/11/2021 FINDINGS: No acute intracranial hemorrhage, midline shift, intracranial mass, hydrocephalus, territorial ischemia or abnormal extra-axial collection. Age- related involutional changes with ex vacuo ventriculomegaly. White matter hypodensities suggest chronic microvascular ischemic disease. Senescent calcifications of the left lentiform nucleus. Cerebral vascular calcifications. The superior head is only partially imaged. The calvarium is intact. The paranasal sinuses, mastoid air cells, and middle ear cavities are clear. IMPRESSION: No acute intracranial abnormality. ACT 112: Negative or not required by law. The above report was generated using voice recognition software. It may contain grammatical, syntax or spelling errors. Electronically signed by: Elvin Jonas M.D. 01/10/2022 1:50 PM Discharge Plan Visit Data Chief Complaint: Infection ED Provider: Delmar Ireland Discharge Problem: Acute UTI (urinary tract infection), Weakness, Acute hyponatremia Forms Stand Alone Forms: [facility] Prescriptions Prescriptions: No Action losartan 50 mg tablet 100 mg feeding tube QAM RF: 0 glycopyrrolate 2 mg tablet 2 mg feeding tube TID RF: 0 levothyroxine 112 mcg tablet 112 mcg feeding tube DAILYBB RF: 0 hydroxyzine HCl 25 mg tablet 25 mg feeding tube TID PRN (Reason: Itching) RF: 0 riluzole 50 mg tablet 50 mg feeding tube BID RF: 0 fluconazole 100 mg tablet 100 mg feeding tube QAM RF: 0 hydrocortisone 2.5 % cream with perineal applicator 1 applic MD BID PRN (Reason: Hemorrhoids) RF: 0 hyoscyamine sulfate 0.125 mg tablet, sublingual 0.125 mg feeding tube DAILY PRN (Reason: abdominal cramps) RF: 0 gabapentin 100 mg capsule 100 mg feeding tube TID RF: 0 famotidine 40 mg/5 mL (8 mg/mL) suspension 40 mg feeding tube QAM RF: 0 lorazepam 1 mg tablet 1 mg feeding tube QID PRN (Reason: Anxiety) RF: 0 fluticasone propionate 50 mcg/actuation spray,suspension 2 spray INTRANASAL DAILY PRN (Reason: Allergy Symptoms) RF: 0 simethicone [Simethicone-80] 80 mg Tablet,Chewable 80 mg feeding tube DAILY PRN (Reason: excessive gas) RF: 0 cholestyramine (with sugar) 4 gram powder in packet 0.5 - 1 ea feeding tube BID RF: 0 mirtazapine 7.5 mg tablet 7.5 mg feeding tube HS PRN (Reason: Sleep) RF: 0 fentanyl 12 mcg/hr patch 72 hour 12 mcg transdermal Q72H RF: 0 Guaifenesin 400mg/20ml 20 ml feeding tube Q4H PRN (Reason: mucus) RF: 0 nystatin 100,000 unit/mL suspension 10 ml PO TID PRN (Reason: mouth sores) RF: 0 sucralfate 100 mg/mL suspension 1 g PO QID RF: 0 Saccharomyces boulardii [Florastor] 250 mg capsule 250 mg feeding tube QAM RF: 0 hydromorphone [Dilaudid] 2 mg tablet 1 mg feeding tube Q4H PRN (Reason: pain) RF: 0 lidocaine 5 % Adhesive Patch,Medicated 1 patch TOPICAL DAILY PRN (Reason: Pain) RF: 0 scopolamine base 1 mg over 3 days patch 3 day 1 patch transdermal Q3D RF: 0 albuterol sulfate 2.5 mg /3 mL (0.083 %) solution for nebulization 2.5 mg inhalation Q4H PRN (Reason: Wheezing) RF: 0 ondansetron HCl 4 mg tablet 4 mg feeding tube Q6H RF: 0 dicyclomine 20 mg tablet 20 mg feeding tube Q6H PRN (Reason: Diarrhea) RF: 0 levocetirizine [Xyzal] 5 mg Tablet 5 mg feeding tube HS PRN (Reason: Allergy Symptoms) RF: 0 menthol-zinc oxide [Calmoseptine] 0.44-20.6 % Ointment 1 applic TOPICAL QID PRN (Reason: sores) RF: 0 Probiotic 3 billion cell Capsule 0 mmu cells feeding tube HS RF: 0 lansoprazole 30 mg tablet,disintegrat, delay rel 30 mg feeding tube BID Qty: 0 RF: 0 Referrals Referrals: Devonte Sweeney DO [Primary Care Provider] -
[2022-01-10 13:30] LABS: INR 0.9 (0.9-1.1); Partial Thromboplastin Ratio 0.8; Prothrombin Time 9.8 Seconds (9.0-12.0)
[2022-01-10 13:40] LABS: Albumin Globulin Ratio 1.3 (0.9-2); Albumin Level 3.8 gm/dl (3.4-5.0); BUN Creatinine Ratio 55.3 (10-20); Bilirubin,Total 0.4 mg/dl (0.2-1.0); Est GFR (African American) 87.7 ml/min; Est GFR (Non-African American) 75.7 ml/min; Magnesium 1.9 mg/dl (1.7-2.4); Total Protein 6.8 gm/dl (6.0-8.3)
[2022-01-10 13:47] LABS: Troponin I High Sensitivity 10.4 pg/ml (0-14)
--- NOTE | 2022-01-10 13:48 | XRay Report ---
XR chest 1V portable HISTORY: SEPSIS COMPARISON: Chest 12/22/2021. FINDINGS: Rotated study. Cervical spinal fusion hardware is again noted. Stable volume loss within th e left hemithorax with left basilar density and a small left pleural effusion. This remains unchanged . The heart remains mildly enlarged. No pneumothorax. The right lung is essentially clear. No evidenc e for pulmonary edema. IMPRESSION: Stable volume loss within the left hemithorax with a left basilar densities/effusion. This remains un changed. ACT 112: Negative or not required by law. Electronically signed by: Chencho Leonardo M.D. 01/10/2022 1:46 PM
--- NOTE | 2022-01-10 13:51 | CT Scan Report ---
CT head/brain wo con CLINICAL HISTORY: 76 years-old Female with ams. Acutely altered mental status TECHNIQUE: Multiple axial CT images of the head were obtained without contrast. A dose lowering tech nique was utilized adhering to the principles of ALARA. CT DOSE: 907.30 mGy.cm COMPARISON: Head CT 07/11/2021 FINDINGS: No acute intracranial hemorrhage, midline shift, intracranial mass, hydrocephalus, territorial ischem ia or abnormal extra-axial collection. Age-related involutional changes with ex vacuo ventriculomegal y. White matter hypodensities suggest chronic microvascular ischemic disease. Senescent calcification s of the left lentiform nucleus. Cerebral vascular calcifications. The superior head is only partiall y imaged. The calvarium is intact. The paranasal sinuses, mastoid air cells, and middle ear cavities are clear . IMPRESSION: No acute intracranial abnormality. ACT 112: Negative or not required by law. The above report was generated using voice recognition software. It may contain grammatical, syntax o r spelling errors. Electronically signed by: Elvin Jonas M.D. 01/10/2022 1:50 PM
[2022-01-10 14:02] LABS: Appearance Urine Cloudy (Clear); Bacteria Urine Automated 4+ (Negative); Bilirubin Urine Negative (Negative); Blood Urine Negative (Negative); Color Urine Yellow; Epithelial Cell Urine Auto >30 /lpf (0-5); Glucose Urine UA Negative (Negative); Ketones Urine Negative (Negative); Leukocyte Esterase Urine 3+ (Negative); Nitrite Urine Positive (Negative); Protein Urine Negative (Negative); RBC Urine Automated 0-4 /hpf (0-4); Specific Gravity Urine 1.014 (1.000-1.030); Urobilinogen Urine Negative (Negative); WBC Urine Automated >30 /hpf (0-5); pH Urine 7.5 (4.5-7.5)
--- NOTE | 2022-01-10 14:03 | CT Scan Report ---
CT abd pelvis wo con CLINICAL HISTORY: weak TECHNIQUE: Helical axial images of the abdomen and pelvis were obtained. Automated dose lowering tech niques and/or adjustment according to patient size were utilized for this exam. This exam was perfor med without intravenous contrast. COMPARISON: Comparison is made to CT abdomen pelvis 12/20/2021 FINDINGS: Lower chest: A small left pleural effusion is seen. Liver: Multiple hepatic cysts are seen. Gallbladder and biliary tree: Patient is status post cholecystectomy. No intra- or extrahepatic bilia ry ductal dilation. Pancreas: Unremarkable, no focal lesions. Spleen: Unremarkable. Adrenals: Unremarkable. Kidneys and ureters: Unremarkable. Bladder: Limited evaluation due to underdistention. Reproductive organs: Unremarkable. Bowel: Postresection changes are seen in the bowel. A gastrostomy tube is seen. Mild soft tissue stra nding is seen along the tract but no significant inflammation or abscess formation is seen. The appen maty is not definitely visualized. Lymph nodes Retroperitoneal: Unremarkable. Mesenteric: Unremarkable. Pelvic: Unremarkable. Peritoneum: Normal. Vessels: Atherosclerotic calcifications are seen. Abdominal wall: A fat-containing umbilical hernia is seen. Bones: Degenerative changes in the visualized spine. IMPRESSION: No evidence of acute abnormality. Gastrostomy tube terminates within the stomach. ACT 112: Negative or not required by law. Electronically signed by: Mike Mac M.D. 01/10/2022 2:02 PM
[2022-01-10 14:22] LABS: Calcium Oxalate Crystals Urine Present (None Prsent)
[2022-01-10 14:23] LABS: Cast Urine Automated 0 /lpf (0-5)
[2022-01-10 14:25] LABS: Other Sediment Urine FUNGUS
[2022-01-10 14:45] LABS: Basophils # (auto) 0.02 K/uL (0-0.2); Basophils % (auto) 0.2 %; Eosinophils # (auto) 0.28 K/uL (0-0.5); Eosinophils % (auto) 3.3 %; Hematocrit (blood only) 35.7 % (37-47); Hemoglobin 11.3 g/dL (12.0-16.0); Immature Granulocytes # (auto) 0.04 K/uL (0.00-0.02); Immature Granulocytes % (auto) 0.5 %; Lymphocytes % (auto) 11.8 %; Mean Corpuscular Hemoglobin 28.8 pg (25-34); Mean Corpuscular Hgb Conc 31.7 g/dL (32-36); Mean Corpuscular Volume 91.1 fL (80-100); Mean Platelet Volume 11.2 fL (7.4-10.4); Monocytes # (auto) 0.55 K/uL (0.11-0.59); Monocytes % (auto) 6.5 %; Neutrophils % (auto) 77.7 %; Platelet Count 270 K/uL (130-400); RDW Coefficient of Variation 13.5 % (11.5-14.5); RDW Standard Deviation 44.7 fL (36.4-46.3); Red Blood Count 3.92 M/uL (4.2-5.4); White Blood Count 8.49 K/uL (4.8-10.8)
[2022-01-10] MEDS ORDERED: CEFEPIME 2,000 MG in SYRINGE 0 ML IV STA (15:03)
--- NOTE | 2022-01-10 15:51 | History & Physical Report ---
Date of Service January 10, 2022 Assessment & Plan (1) Complicated UTI (urinary tract infection): (2) ALS (amyotrophic lateral sclerosis): (3) HTN (hypertension): (4) Hypothyroidism: (5) GERD (gastroesophageal reflux disease): Plan: UTI - OP urine clx 01/05 showing E coli and Enterobacter cloacae resistant to zosyn but sensitive to bactrim and cefepime, however allergic to bactrim. Tolerated rocephin during recent encounter. - Will start on cefepime D1/. - Given her recurrent C diff, will start on po vanco to prevent C diff- recommend to continue one week beyond completion of antibiotic. continue florastor. - Follow final blood and urine clx results from this admission. - Recommend kenny change this admission and at least [id number]. H/o recurrent C diff- prophylactic po vanco as above. Recently completed course of fidoxamicin. ALS s/p PEG tube - Continue PEG tube feeding as at home, aspiration precautions. - Dietitian callie. - Will consult palliative to continue further goals of care discussion. - Her intermittent shortness of breath could well be from her ALS progression, secretions and probably some anxiety component. CXR stable, no new changes. Hypoxia- continue home oxygen HTN- continue losartan with hold parameters DVT prophylaxis- sc lovenox Code- Ok with CPR but no invasive ventilation per Dispo- Admit to [facility] Updated at bedside History of Present Illness Chief Complaint: UTI Primary Care Provider: Devonte Sweeney DO 76 year old female with h/o ALS s/p PEG tube, recurrent C diff, CILD, HTN, Hypothyroidism, who presented to the ED for UTI and some shortness of breath at the recommendation of her PCP. History taken from at bedside and patient. Patient was recently admitted to [facility] 12/16-12/28 for increased secretions and some shortness of breath. She was still having C diff diarrhea despite vancomycin and completed a course of fidaxomicin and repeat C diff 12/25 was negative. States she has home health and was noted to have foul smelling urine, lower abdominal discomfort along with intermittent delusion and intermittent shortness of breath for which she had urine clx sent by her PCP on 01/07 which showed E coli and Enterobacter cloacae with multiple drug resistance and no oral ABx option given her allergy and was recommended to come to ED for IV antibiotic. States having intermittent low grade fever upto 99.6 at home for past few days. Also has intermittent heavy breathing at times but currently looks fine- no tachypnea, increased work of breathing and comfortable on NC. States she was discharged on NC to be worn at night but for past couple days, she has been using it during day time too as her oxygen saturation was in high 80s. She has been suctioning herself. No vomiting. Her kenny was changed during recent hospital admission. She felt comfortable and denied any needs during my encounter. She was given IV zosyn in ED but her OP urine clx shows resistance to zosyn but sensitive to bactrim and cefepime, however she is allergic to bactrim hence starting on cefepime as she tolerated rocephin during recent hospitalization. Allergies Allergy/AdvReac Type Severity Reaction Status Date / Time Iodinated Contrast Media Allergy Severe dyspnea Verified 01/10/22 15:33 azithromycin Allergy Intermediate rash Verified 01/10/22 15:33 cefaclor Allergy Intermediate hives Verified 01/10/22 15:33 erythromycin base Allergy Intermediate hives Verified 01/10/22 15:33 levalbuterol Allergy Intermediate chest pain Verified 01/10/22 15:33 minocycline Allergy Intermediate rash Verified 01/10/22 15:33 nitrofurantoin Allergy Intermediate possible Verified 01/10/22 15:33 hives or dyspnea phenazopyridine Allergy Intermediate dyspnea Verified 01/10/22 15:33 Sulfa (Sulfonamide Allergy Intermediate hives Verified 01/10/22 15:33 Antibiotics) oxycodone [From OxyContin] Allergy Unknown Unverified 01/10/22 15:33 metronidazole AdvReac Intermediate GI symptoms Verified 01/10/22 15:33 morphine AdvReac Intermediate vomiting Verified 01/10/22 15:33 levofloxacin AdvReac Mild abdominal Verified 01/10/22 15:33 pain albuterol [From Ventolin HFA] AdvReac Chest Pain Unverified 01/10/22 15:33 iodine AdvReac Anaphylaxis Unverified 01/10/22 15:33 tramadol AdvReac Confusion Unverified 01/10/22 15:33 Home Medications Medication Instructions Recorded Confirmed Type losartan 50 mg tablet 100 mg FEEDING TUBE QAM 07/08/19 01/10/22 History lidocaine 5 % topical patch 1 patch TOPICAL DAILY PRN 07/22/21 01/10/22 History glycopyrrolate 2 mg tablet 2 mg FEEDING TUBE TID 11/22/21 01/10/22 History hydroxyzine HCl 25 mg tablet 25 mg FEEDING TUBE TID PRN 11/22/21 01/10/22 History levothyroxine 112 mcg tablet 112 mcg FEEDING TUBE DAILYBB 11/22/21 01/10/22 Hist ory riluzole 50 mg tablet 50 mg FEEDING TUBE BID 11/22/21 01/10/22 History albuterol sulfate 2.5 mg INHALATION Q4H PRN 12/16/21 01/10/22 History dicyclomine 20 mg tablet 20 mg FEEDING TUBE Q6H PRN 12/16/21 01/10/22 History lactobacillus combination no.4 3 0 mmu cells FEEDING TUBE HS 12/16/21 01/10/22 History billion cell capsule (Probiotic) levocetirizine 5 mg tablet (Xyzal) 5 mg FEEDING TUBE HS PRN 12/16/21 01/10/22 History menthol 0.44 %-zinc oxide 20.6 % 1 applic TOPICAL QID PRN 12/16/21 01/10/22 History topical ointment (Calmoseptine) ondansetron HCl 4 mg tablet 4 mg FEEDING TUBE Q6H 12/16/21 01/10/22 History scopolamine base 1 mg over 3 days 1 patch TRANSDERMAL Q3D 12/16/21 01/10/22 History transdermal patch lansoprazole 30 mg delayed 30 mg FEEDING TUBE BID #0 tab 12/28/21 01/10/22 Rx release,disintegrating tablet Guaifenesin 400mg/20ml 20 ml FEEDING TUBE Q4H PRN 01/10/22 01/10/22 History Saccharomyces boulardii 250 mg 250 mg FEEDING TUBE QAM 01/10/22 01/10/22 History capsule (Florastor) cholestyramine (with sugar) 4 gram 0.5 - 1 ea FEEDING TUBE BID 01/10/22 01/10/22 History powder for susp in a packet famotidine 40 mg/5 mL (8 mg/mL) 40 mg FEEDING TUBE QAM 01/10/22 01/10/22 History oral suspension fentanyl 12 mcg/hr transdermal 12 mcg TRANSDERMAL Q72H 01/10/22 01/10/22 History patch fluconazole 100 mg tablet 100 mg FEEDING TUBE QAM 01/10/22 01/10/22 History fluticasone propionate 50 2 spray INTRANASAL DAILY PRN 01/10/22 01/10/22 History mcg/actuation nasal spray,suspension gabapentin 100 mg capsule 100 mg FEEDING TUBE TID 01/10/22 01/10/22 History hydrocortisone 2.5 % topical cream 1 applic [place] BID PRN 01/10/22 01/10/22 History with perineal applicator hydromorphone 2 mg tablet 1 mg FEEDING TUBE Q4H PRN 01/10/22 01/10/22 History (Dilaudid) hyoscyamine sulfate 0.125 mg 0.125 mg FEEDING TUBE DAILY PRN 01/10/22 01/10/22 History sublingual tablet lorazepam 1 mg tablet 1 mg FEEDING TUBE QID PRN 01/10/22 01/10/22 History mirtazapine 7.5 mg tablet 7.5 mg FEEDING TUBE HS PRN 01/10/22 01/10/22 History nystatin 100,000 unit/mL oral 10 ml PO TID PRN 01/10/22 01/10/22 History suspension simethicone 80 mg chewable tablet 80 mg FEEDING TUBE DAILY PRN 01/10/22 01/10/22 History sucralfate 100 mg/mL oral 1 g PO QID 01/10/22 01/10/22 History suspension Past Med/Surg History Medical History ALS (amyotrophic lateral sclerosis) Cancer left breast (2015) s/p left lumpectomy/XRT, no chemo Cervical stenosis of spinal canal Diarrhea GERD (gastroesophageal reflux disease) controlled, stable. Patient sleeps elevated HS. 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) "Abnormal left breast mammogram Status post stereotactic biopsy 11/14/2015 revealing DCIS grade 1 Estrogen receptor positive and progesterone receptor positive Status post needle localization lumpectomy 12/20/2015 Stage pTis pNX Status post completion of radiation therapy 03/01/2016 received 3850 cGy utilizing accelerated partial breast irradiation." On 03/14/16 11:36 Ese Cabrera wrote "Abnormal left breast mammogram Status post stereotactic biopsy 11/14/2015 revealing DCIS grade 1 Estrogen receptor positive and progesterone receptor positive Status post needle localization lumpectomy 12/20/2015 Stage pTis pNX Status post completion of radiation therapy 03/01/2016 received 3850 cGy utilizing accelerated partial breast irradiation." On 02/01/16 11:23 Ese Cabrera wrote "Abnormal left breast mammogram Status post stereotactic biopsy 11/14/2015 revealing DCIS grade 1 Estrogen receptor positive and progesterone receptor positive Status post needle localization lumpectomy 12/20/2015 Stage pTis pNX" Lab test negative for COVID-19 virus Nausea Osteoarthritis Palliative care encounter SOB (shortness of breath) Surgical History H/O foot surgery R ORIF History of appendectomy History of carpal tunnel release R/L History of colectomy D/T DIVERTICULITIS History of colonoscopy MULTIPLE History of D&C D&C, hysteroscopy: 10/24/17: LMA# 4 at [facility] History of esophagogastroduodenoscopy (EGD) History of lumpectomy of left breast 2015 History of tonsillectomy S/P percutaneous endoscopic gastrostomy (PEG) tube placement Family History Mother Breast cancer Social History Smoking Status: Never smoker Tobacco Type: Cigarettes Second Hand Exposure: No; Hx Alcohol Use: No Hx Substance Use: No Preferred Language: Bulgarian Communication Ability: Effective Seam Checker Required: No Beliefs That Will Affect Care: None marital status: Current Living Situation: Other Current Living Situation Comment: with and daughter Feels Safe at Home: Yes Assistive Devices: Mechanical Lift and Oxygen - Continuous Review of Systems Review of Systems: All systems reviewed & are unremarkable except as noted in Subjective Physical Exam Physical Exam: General: Chronically ill looking, Lying comfortably in bed, not in distress, on NC HEENT: EOMI, ALONDRA, Dry oral mucosa Chest: Fair breath sounds bilaterally, no wheezes, mild rales on left side CVS: Regular rate and rhythm, normal heart sounds, no murmur Abdomen: Soft, non tender, not distended, normal bowel sounds, PEG tube in place Neuro: Awake, alert, oriented, speaking minimally only in couple words Extremities: No cyanosis, clubbing or edema Kenny with clear urine Results & Data Results & Data ([facility]) Vital Signs (Past 12 Hours) Vital Signs Temp Pulse Pulse Resp BP BP Pulse Ox 01/10/22 13:21 74 14 150/60 H 92 01/10/22 13:20 91 H 92 01/10/22 12:42 37.6 C H 80 24 148/65 H 92 Laboratory Results Short CBC 01/10/22 01/10/22 Range/Units 12:50 14:13 WBC Cancelled 8.49 Hgb Cancelled 11.3 L Hct Cancelled 35.7 L Plt Count Cancelled 270 BMP 01/10/22 12:50 Sodium 133 L Potassium 5.0 Chloride 94 L Carbon Dioxide 32 BUN 42 H Creatinine 0.76 Glucose 110 H Calcium 10.0 Liver Function 01/10/22 Range/Units 12:50 Total Bilirubin 0.4 (0.2-1.0) mg/dl AST 19 (13-39) U/L ALT 26 (7-52) U/L Alkaline Phosphatase 114 H (34-104) U/L Albumin 3.8 (3.4-5.0) gm/dl Urine 01/10/22 Range/Units 13:00 Urine Color Yellow Urine Appearance Cloudy A (Clear) Urine pH 7.5 (4.5-7.5) Ur Specific [place] 1.014 (1.000-1.030) Urine Protein Negative (Negative) Urine Glucose (UA) Negative (Negative) Diagnostic Findings Abdomen/Pelvis CT 01/10/22 12:55 CT abd pelvis wo con CLINICAL HISTORY: weak TECHNIQUE: Helical axial images of the abdomen and pelvis were obtained. Automated dose lowering techniques and/or adjustment according to patient size were utilized for this exam. This exam was performed without intravenous contra st. COMPARISON: Comparison is made to CT abdomen pelvis 12/20/2021 FINDINGS: Lower chest: A small left pleural effusion is seen. Liver: Multiple hepatic cysts are seen. Gallbladder and biliary tree: Patient is status post cholecystectomy. No intra- or extrahepatic biliary ductal dilation. Pancreas: Unremarkable, no focal lesions. Spleen: Unremarkable. Adrenals: Unremarkable. Kidneys and ureters: Unremarkable. Bladder: Limited evaluation due to underdistention. Reproductive organs: Unremarkable. Bowel: Postresection changes are seen in the bowel. A gastrostomy tube is seen. Mild soft tissue stranding is seen along the tract but no significant inflammation or abscess formation is seen. The appendix is not definitely visualized. Lymph nodes Retroperitoneal: Unremarkable. Mesenteric: Unremarkable. Pelvic: Unremarkable. Peritoneum: Normal. Vessels: Atherosclerotic calcifications are seen. Abdominal wall: A fat-containing umbilical hernia is seen. Bones: Degenerative changes in the visualized spine. IMPRESSION: No evidence of acute abnormality. Gastrostomy tube terminates within the stomach. ACT 112: Negative or not required by law. Electronically signed by: Mike Mac M.D. 01/10/2022 2:02 PM Chest X-Ray 01/10/22 12:55 XR chest 1V portable HISTORY: SEPSIS COMPARISON: Chest 12/22/2021. FINDINGS: Rotated study. Cervical spinal fusion hardware is again noted. Stable volume loss within the left hemithorax with left basilar density and a small left pleural effusion. This remains unchanged. The heart remains mildly enlarged. No pneumothorax. The right lung is essentially clear. No evidence for pulmonary edema. IMPRESSION: Stable volume loss within the left hemithorax with a left basilar densities/e ffusion. This remains unchanged. ACT 112: Negative or not required by law. Electronically signed by: Chencho Leonardo M.D. 01/10/2022 1:[address] 01/10/22 12:55 CT head/brain wo con CLINICAL HISTORY: 76 years-old Female with ams. Acutely altered mental status TECHNIQUE: Multiple axial CT images of the head were obtained without contrast. A dose lowering technique was utilized adhering to the principles of ALARA. CT DOSE: 907.30 mGy.cm COMPARISON: Head CT 07/11/2021 FINDINGS: No acute intracranial hemorrhage, midline shift, intracranial mass, hydrocephalus, territorial ischemia or abnormal extra-axial collection. Age- related involutional changes with ex vacuo ventriculomegaly. White matter hypodensities suggest chronic microvascular ischemic disease. Senescent calcifications of the left lentiform nucleus. Cerebral vascular calcifications. The superior head is only partially imaged. The calvarium is intact. The paranasal sinuses, mastoid air cells, and middle ear cavities are clear. IMPRESSION: No acute intracranial abnormality. ACT 112: Negative or not required by law. The above report was generated using voice recognition software. It may contain grammatical, syntax or spelling errors. Electronically signed by: Elvin Jonas M.D. 01/10/2022 1:50 PM Code Status & VTE Plan VTE Prophylaxis Plan VTE Prophylaxis will be ordered: Yes
[2022-01-10] MEDS ORDERED: HYDROmorphone HCL 2 MG TAB PO STA (17:20)
[2022-01-10] MEDS ORDERED: VANCOMYCIN HCL 500 MG/10 ML SOLN PO SCH (18:00)
[2022-01-10] MEDS ORDERED: RASPBERRY SYRUP 5 ML UDP PO SCH (18:00)
[2022-01-10] MEDS ORDERED: GUAIFENESIN feeding tube PRN (19:33)
[2022-01-10] MEDS ORDERED: HYDROCORTISONE HC 2.5% CRM 30GM TUBE EXT PRN (19:33)
[2022-01-10] MEDS ORDERED: SIMETHICONE 80 MG CHEW PO PRN (19:33)
[2022-01-10] MEDS ORDERED: FLUTICASONE PROPIONATE NA SPR 16 GM BTL PRN (19:33)
[2022-01-10] MEDS ORDERED: LORazepam 0.5 MG TAB PO PRN (19:33)
[2022-01-10] MEDS ORDERED: CLOTRIMAZOLE 1% CR 15 GM TUBE TOP PRN (21:14)
[2022-01-10] MEDS: SACCHAROMYCES BOULARDII 250 MG CAP PO SCH (21:31)
[2022-01-10] MEDS: fentaNYL 12 MCG/HR TDSY TD SCH (21:31)
[2022-01-10] MEDS: GABAPENTIN 100 MG CAP PO SCH (21:31)
[2022-01-10] MEDS: CETIRIZINE HCL 10 MG TABLET PO SCH (21:49)
[2022-01-10] MEDS: VANCOMYCIN HCL 125 MG/2.5ML SOLN PO SCH (21:53)
[2022-01-10] MEDS: SUCRALFATE 1 GM/10 ML UDC PO SCH (21:53)
[2022-01-10] MEDS: GLYCOPYRROLATE 1 MG TAB PO SCH (21:53)
[2022-01-10] MEDS: guaiFENesin SUGAR FREE 200 MG/10 ML UDC PEG SCH (21:54)
[2022-01-10] MEDS: RILUZOLE PO SCH (21:55)
[2022-01-10] MEDS: LANSOPRAZOLE 30 MG SOLTAB PEG SCH (21:56)
[2022-01-10] MEDS: TUBE FEEDING WATER FLUSH GT SCH (21:57)
[2022-01-10] MEDS: NYSTATIN SUSP 500,000 U/5 ML UDC PO SCH (21:57)
[2022-01-10] MEDS: CHOLESTYRAMINE LIGHT 4 GM PKT PEG SCH (22:10)
[2022-01-10] MEDS: CEFEPIME 2,000 MG in SYRINGE 0 ML IV SCH (22:20)
[2022-01-10] MEDS: ENOXAPARIN INJ 40 MG/0.4 ML SYR SQ SCH (22:21)
[2022-01-11] MEDS: CHECK fentaNYL PATCH PLACEMENT SCH ×3 (00:41→17:42)
[2022-01-11] MEDS: VANCOMYCIN HCL 125 MG/2.5ML SOLN PO SCH ×3 (00:41→12:07)
[2022-01-11] MEDS: TUBE FEEDING WATER FLUSH GT SCH ×8 (00:49→20:00)
[2022-01-11] MEDS: LEVOTHYROXINE SODIUM 112 MCG TABLET PEG SCH (05:52)
[2022-01-11] MEDS: HYDROmorphone HCL 2 MG TAB PO PRN ×3 (06:00→19:41)
[2022-01-11 08:25] LABS: Basophils # (auto) 0.02 K/uL (0-0.2); Basophils % (auto) 0.3 %; Eosinophils # (auto) 0.18 K/uL (0-0.5); Eosinophils % (auto) 2.6 %; Hematocrit (blood only) 35.7 % (37-47); Hemoglobin 11.9 g/dL (12.0-16.0); Immature Granulocytes # (auto) 0.03 K/uL (0.00-0.02); Immature Granulocytes % (auto) 0.4 %; Lymphocytes # (auto) 0.71 K/uL (1.2-3.4); Lymphocytes % (auto) 10.1 %; Mean Corpuscular Hgb Conc 33.3 g/dL (32-36); Mean Corpuscular Volume 89.9 fL (80-100); Mean Platelet Volume 11.2 fL (7.4-10.4); Monocytes # (auto) 0.47 K/uL (0.11-0.59); Monocytes % (auto) 6.7 %; Neutrophils # (auto) 5.62 K/uL (1.4-6.5); Neutrophils % (auto) 79.9 %; Platelet Count 246 K/uL (130-400); RDW Coefficient of Variation 13.3 % (11.5-14.5); RDW Standard Deviation 43.9 fL (36.4-46.3); Red Blood Count 3.97 M/uL (4.2-5.4); White Blood Count 7.03 K/uL (4.8-10.8)
[2022-01-11] MEDS: RILUZOLE PO SCH ×2 (08:45→21:54)
[2022-01-11] MEDS: GLYCOPYRROLATE 1 MG TAB PO SCH ×4 (08:47→21:53)
[2022-01-11] MEDS: HYOSCYAMINE SULFATE 0.125 MG TAB PO PRN (08:48)
[2022-01-11] MEDS: FAMOTIDINE 20 MG TAB JT SCH (08:49)
[2022-01-11] MEDS: GABAPENTIN 100 MG CAP PO SCH ×3 (08:54→21:57)
[2022-01-11] MEDS: guaiFENesin SUGAR FREE 200 MG/10 ML UDC PEG SCH ×4 (08:56→21:55)
[2022-01-11] MEDS: LOSARTAN POTASSIUM 50 MG TAB PEG SCH (08:57)
[2022-01-11] MEDS: SUCRALFATE 1 GM/10 ML UDC PO SCH ×2 (08:59→13:21)
[2022-01-11] MEDS: SACCHAROMYCES BOULARDII 250 MG CAP PO SCH ×2 (08:59→21:59)
[2022-01-11] MEDS ORDERED: SCOPOLAMINE 1 MG TDSY TD SCH (09:00)
[2022-01-11] MEDS: LIDOCAINE 5% 1 PATCH TD SCH (09:00)
[2022-01-11 09:30] LABS: BUN Creatinine Ratio 62.7 (10-20); Calcium 9.1 mg/dl (8.5-10.1); Creatinine Clr Calc Pharmacy 86.5 ml/min; Est GFR (African American) 107.5 ml/min; Est GFR (Non-African American) 92.8 ml/min; Potassium 4.2 mmol/L (3.5-5.1)
[2022-01-11] MEDS: CEFEPIME 2,000 MG in SYRINGE 0 ML IV SCH ×2 (09:46→22:09)
[2022-01-11] MEDS: FIBERSOURCE HN 1.2 CAL 1000 ML BAG GT SCH (11:56)
[2022-01-11] MEDS: NYSTATIN SUSP 500,000 U/5 ML UDC PO SCH ×3 (12:14→21:53)
[2022-01-11] MEDS: LANSOPRAZOLE 30 MG SOLTAB PEG SCH ×2 (12:21→21:56)
[2022-01-11] MEDS: CHOLESTYRAMINE LIGHT 4 GM PKT PEG SCH (12:21)
[2022-01-11] MEDS: ONDANSETRON INJ 2 MG/ML 2 ML VIAL IV PRN (15:57)
[2022-01-11] MEDS ORDERED: CHECK SCOPOLAMINE PATCH PLACEMENT SCH (16:00)
--- NOTE | 2022-01-11 16:17 | Hospitalist Progress Note ---
Date of Service January 11, 2022 Assessment & Plan (1) Complicated UTI (urinary tract infection): (2) ALS (amyotrophic lateral sclerosis): (3) HTN (hypertension): (4) Hypothyroidism: (5) GERD (gastroesophageal reflux disease): Plan: UTI Outpatient urine clx 01/05 showing E coli and Enterobacter cloacae resistant to zosyn but sensitive to bactrim and cefepime, however allergic to bactrim. Tolerated rocephin during recent encounter. Continue cefepime Discussed with RN. Change kenny Patient on chronic kenny Urine culture from 12/16/21 also grew E coli and Enterobacter. 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 Recently completed course of fidoxamicin. ALS s/p PEG tube Continue PEG tube feeding as at home, aspiration precautions. Nutrition recs noted Counselled to avoid excessive suctioning Good oral hygiene Continue supportive care Hypoxia Continue home oxygen HTN Continue losartan with hold parameters DVT prophylaxis- sc lovenox Code- Ok with CPR but no invasive ventilation per Called and daughter and updated them Admission and Anticipated Discharge Date Admission Date: January 10, 2022 Subjective Patient seen and examined Has slurred speech due to ALS Reports abd discomfort. Denied any fevers, chills Had some nausea earlier per RN. No vomiting Denied chest pain, cough, shortness of breath, palpitation Physical Exam Constitutional: no acute distress Eyes: PERRL, conjunctivae normal, anicteric sclerae ENMT: Very dry oral mucosa. Patient seem to be suctioning a lot Respiratory: normal respiratory effort, lungs clear to auscultation Cardiovascular: Rate/Rhythm: regular rate and regular rhythm S1 S2 Gastrointestinal (Abdomen): Soft, not distended, Normal bowel sounds, PEG in situ with TF running Mild suprapubic tenderness Musculoskeletal: No pedal edema Power in LE: 3+/5 in RLE, 3/5 in LLE. 4/5 in RUE Neurologic: PERRL, EOMI, accommodation nl, no face palsy, no dysarthria Slurred speech Genitourinary: Kenny in situ Results & Data Results & Data ([facility]) Vital Signs (Past 12 Hours) Vital Signs Temp Pulse Pulse Resp BP BP Pulse Ox 01/11/22 15:18 36.8 C 82 16 162/82 H 92 01/11/22 11:29 36.8 C 79 20 146/80 H 96 01/11/22 10:00 93 01/11/22 08:00 36.6 C 79 20 170/64 H 97 01/11/22 07:11 36.6 C 85 22 173/76 H 96 Laboratory Results Abnormal lab results 01/11/22 01/11/22 Range/Units 08:05 08:05 RBC 3.97 L (4.2-5.4) M/uL Hgb 11.9 L (12.0-16.0) g/dL Hct 35.7 L (37-47) % MPV 11.2 H (7.4-10.4) fL Lymph # (Auto) 0.71 L (1.2-3.4) K/uL Immature Gran # (Auto) 0.03 H (0.00-0.02) K/uL Sodium 135 L (136-145) mmol/L BUN 32 H (6-23) mg/dl Creatinine 0.51 L (0.6-1.2) mg/dl BUN/Creatinine Ratio 62.7 H (10-20) Glucose 136 H (70-99(Fasting)) mg/dl
[2022-01-11] MEDS: VANCOMYCIN HCL 125 MG/2.5ML SOLN PEG SCH (17:42)
[2022-01-11] MEDS: SUCRALFATE 1 GM/10 ML UDC PEG SCH ×2 (17:43→21:53)
--- NOTE | 2022-01-11 19:25 | Electrocardiogram Report ---
Test Reason : Blood Pressure : / mmHG Vent. Rate : 077 BPM Atrial Rate : 077 BPM P-R Int : 150 ms QRS Dur : 086 ms QT Int : 390 ms P-R-T Axes : 040 -36 046 degrees QTc Int : 441 ms Normal sinus rhythm Left axis deviation Possible Anterior infarct (cited on or before 16-DEC-2021) Nonspecific T wave abnormality Abnormal ECG When compared with ECG of 16-DEC-2021 12:41, No significant change was found Confirmed by Rich Santos ([id number]) on 01/11/2022 7:24:59 PM Referred By: REFERRED SELF Confirmed By:Rich Santos
[2022-01-11] MEDS: CETIRIZINE HCL 10 MG TABLET PO SCH (21:57)
[2022-01-11] MEDS: MIRTAZAPINE TAB 15 MG TAB GT PRN (21:58)
[2022-01-11] MEDS: ENOXAPARIN INJ 40 MG/0.4 ML SYR SQ SCH (21:59)
[2022-01-11] MEDS: ALBUT/IPRATROP 3MG/0.5MG NEB 3 ML VIAL INH PRN (22:47)
[2022-01-12] MEDS: HYDROmorphone HCL 2 MG TAB PO PRN ×3 (00:34→18:31)
[2022-01-12] MEDS: CHECK fentaNYL PATCH PLACEMENT SCH ×4 (00:35→23:08)
[2022-01-12] MEDS: VANCOMYCIN HCL 125 MG/2.5ML SOLN PEG SCH ×5 (00:35→23:08)
[2022-01-12] MEDS: TUBE FEEDING WATER FLUSH GT SCH ×7 (00:36→23:10)
[2022-01-12] MEDS: LEVOTHYROXINE SODIUM 112 MCG TABLET PEG SCH (06:11)
[2022-01-12] MEDS: FIBERSOURCE HN 1.2 CAL 1000 ML BAG GT SCH (06:46)
[2022-01-12 07:19] LABS: Hematocrit (blood only) 37.5 % (37-47); Mean Corpuscular Hemoglobin 28.8 pg (25-34); Mean Corpuscular Volume 90.1 fL (80-100); Mean Platelet Volume 11.1 fL (7.4-10.4); Platelet Count 293 K/uL (130-400); RDW Coefficient of Variation 13.3 % (11.5-14.5); RDW Standard Deviation 43.9 fL (36.4-46.3); Red Blood Count 4.16 M/uL (4.2-5.4); White Blood Count 6.73 K/uL (4.8-10.8)
[2022-01-12 07:42] LABS: BUN Creatinine Ratio 55.3 (10-20); Calcium 9.3 mg/dl (8.5-10.1); Creatinine Clr Calc Pharmacy 93.8 ml/min; Est GFR (African American) 110.4 ml/min; Est GFR (Non-African American) 95.3 ml/min; Potassium 4.1 mmol/L (3.5-5.1)
[2022-01-12] MEDS: GABAPENTIN 100 MG CAP PO SCH ×3 (10:05→21:10)
[2022-01-12] MEDS: GLYCOPYRROLATE 1 MG TAB PO SCH ×4 (10:05→21:05)
[2022-01-12] MEDS: guaiFENesin SUGAR FREE 200 MG/10 ML UDC PEG SCH ×4 (10:05→21:07)
[2022-01-12] MEDS: FAMOTIDINE 20 MG TAB JT SCH (10:05)
[2022-01-12] MEDS: LOSARTAN POTASSIUM 50 MG TAB PEG SCH (10:06)
[2022-01-12] MEDS: LIDOCAINE 5% 1 PATCH TD SCH (10:06)
[2022-01-12] MEDS: RILUZOLE PO SCH ×2 (10:07→21:11)
[2022-01-12] MEDS: LANSOPRAZOLE 30 MG SOLTAB PEG SCH ×2 (10:07→21:06)
[2022-01-12] MEDS: NYSTATIN SUSP 500,000 U/5 ML UDC PO SCH ×3 (10:08→21:20)
[2022-01-12] MEDS: SACCHAROMYCES BOULARDII 250 MG CAP PO SCH ×2 (10:08→21:12)
[2022-01-12] MEDS: SUCRALFATE 1 GM/10 ML UDC PEG SCH ×4 (10:08→21:05)
[2022-01-12] MEDS: LORazepam 0.5 MG TAB PO PRN (10:10)
[2022-01-12] MEDS: CEFEPIME 2,000 MG in SYRINGE 0 ML IV SCH ×2 (10:10→18:31)
--- NOTE | 2022-01-12 14:51 | Hospitalist Progress Note ---
Date of Service January 12, 2022 Assessment & Plan (1) Complicated UTI (urinary tract infection): (2) ALS (amyotrophic lateral sclerosis): (3) HTN (hypertension): (4) Hypothyroidism: (5) GERD (gastroesophageal reflux disease): Plan: UTI Outpatient urine clx 01/05 showing E coli and Enterobacter cloacae resistant to zosyn but sensitive to bactrim and cefepime, however allergic to bactrim. Tolerated rocephin during recent encounter. Patient on chronic kenny. Changed on 01/11/22 Urine culture from 12/16/21 and 01/05/22 outpatient also grew E coli and Enterobacter. Concern for colonization Urine culture from admission 01/10/22 growing E coli Based on sensitivities, discussed with pharm. 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 Recently completed course of fidoxamicin. ALS s/p PEG tube Continue PEG tube feeding as at home, aspiration precautions. Nutrition recs noted Patient's oral mucosa very dry from excessive self suctioning. Counselled to avoid excessive suctioning Good oral hygiene Continue supportive care HTN Continue losartan with hold parameters DVT prophylaxis- sc lovenox Code- Ok with CPR but no invasive ventilation per Called and daughter and updated them Admission and Anticipated Discharge Date Admission Date: January 10, 2022 Subjective Patient seen and examined Has slurred speech due to ALS Reports left sided abd discomfort. Reports nausea No vomiting Denied any fevers, chills Denied chest pain, cough, shortness of breath, palpitation Physical Exam Constitutional: no acute distress Eyes: PERRL, conjunctivae normal, anicteric sclerae ENMT: Dry oral mucosa Respiratory: normal respiratory effort, lungs clear to auscultation Cardiovascular: Rate/Rhythm: regular rate and regular rhythm S1 S2 Gastrointestinal (Abdomen): normal bowel sounds, soft, nontender, no hepatosplenomegaly PEG in situ Musculoskeletal: No pedal edema Neurologic: PERRL, EOMI, accomodation normal Slurred speech Genitourinary: Kenny in situ Results & Data Results & Data ([facility]) Vital Signs (Past 12 Hours) Vital Signs Temp Pulse Resp BP Pulse Ox 01/12/22 07:45 36.8 C 83 16 166/89 H 94 Laboratory Results Abnormal lab results 01/12/22 01/12/22 Range/Units 06:38 06:38 RBC 4.16 L (4.2-5.4) M/uL MPV 11.1 H (7.4-10.4) fL Sodium 135 L (136-145) mmol/L BUN 26 H (6-23) mg/dl Creatinine 0.47 L (0.6-1.2) mg/dl BUN/Creatinine Ratio 55.3 H (10-20) Glucose 121 H (70-99(Fasting)) mg/dl
[2022-01-12] MEDS: ONDANSETRON INJ 2 MG/ML 2 ML VIAL IV PRN (16:12)
[2022-01-12] MEDS ORDERED: PROMETHAZINE HCL 12.5 MG in SODIUM CHLORIDE 0.9% 50 ML IV STA (19:31)
[2022-01-12] MEDS: CETIRIZINE HCL 10 MG TABLET PO SCH (21:08)
[2022-01-12] MEDS: MIRTAZAPINE TAB 15 MG TAB GT PRN (21:09)
[2022-01-12] MEDS: ENOXAPARIN INJ 40 MG/0.4 ML SYR SQ SCH (21:10)
[2022-01-13] MEDS: CEFEPIME 2,000 MG in SYRINGE 0 ML IV SCH ×3 (01:55→18:20)
[2022-01-13] MEDS: FIBERSOURCE HN 1.2 CAL 1000 ML BAG GT SCH (02:37)
[2022-01-13] MEDS: TUBE FEEDING WATER FLUSH GT SCH ×5 (04:20→21:13)
[2022-01-13 06:11] LABS: Hematocrit (blood only) 37.6 % (37-47); Hemoglobin 11.9 g/dL (12.0-16.0); Mean Corpuscular Hemoglobin 28.5 pg (25-34); Mean Corpuscular Hgb Conc 31.6 g/dL (32-36); Platelet Count 317 K/uL (130-400); RDW Coefficient of Variation 13.2 % (11.5-14.5); RDW Standard Deviation 43.7 fL (36.4-46.3); Red Blood Count 4.18 M/uL (4.2-5.4); White Blood Count 9.69 K/uL (4.8-10.8)
[2022-01-13] MEDS: VANCOMYCIN HCL 125 MG/2.5ML SOLN PEG SCH ×3 (06:16→18:20)
[2022-01-13] MEDS: LEVOTHYROXINE SODIUM 112 MCG TABLET PEG SCH (06:17)
[2022-01-13 06:28] LABS: BUN Creatinine Ratio 67.4 (10-20); Calcium 9.3 mg/dl (8.5-10.1); Creatinine Clr Calc Pharmacy 102.6 ml/min; Est GFR (African American) 113.7 ml/min; Est GFR (Non-African American) 98.1 ml/min; Potassium 4.1 mmol/L (3.5-5.1)
[2022-01-13] MEDS: ONDANSETRON INJ 2 MG/ML 2 ML VIAL IV PRN ×3 (06:38→18:21)
[2022-01-13] MEDS: HYDROmorphone HCL 2 MG TAB PO PRN ×4 (06:38→22:39)
[2022-01-13] MEDS: FAMOTIDINE 20 MG TAB JT SCH (08:36)
[2022-01-13] MEDS: guaiFENesin SUGAR FREE 200 MG/10 ML UDC PEG SCH ×4 (08:36→21:23)
[2022-01-13] MEDS: GABAPENTIN 100 MG CAP PO SCH ×3 (08:36→21:20)
[2022-01-13] MEDS: GLYCOPYRROLATE 1 MG TAB PO SCH ×3 (08:36→21:21)
[2022-01-13] MEDS: LOSARTAN POTASSIUM 50 MG TAB PEG SCH (08:37)
[2022-01-13] MEDS: SUCRALFATE 1 GM/10 ML UDC PEG SCH ×4 (08:37→21:27)
[2022-01-13] MEDS: RILUZOLE PO SCH ×2 (08:37→21:24)
[2022-01-13] MEDS: SACCHAROMYCES BOULARDII 250 MG CAP PO SCH ×2 (08:37→21:26)
[2022-01-13] MEDS: LIDOCAINE 5% 1 PATCH TD SCH (08:37)
[2022-01-13] MEDS: NYSTATIN SUSP 500,000 U/5 ML UDC PO SCH ×3 (08:37→21:54)
[2022-01-13] MEDS: CHECK fentaNYL PATCH PLACEMENT SCH ×2 (08:38→16:38)
[2022-01-13] MEDS: LANSOPRAZOLE 30 MG SOLTAB PEG SCH ×2 (08:38→21:24)
--- NOTE | 2022-01-13 14:36 | Hospitalist Progress Note ---
Date of Service January 13, 2022 Assessment & Plan (1) Complicated UTI (urinary tract infection): (2) ALS (amyotrophic lateral sclerosis): (3) HTN (hypertension): (4) Hypothyroidism: (5) GERD (gastroesophageal reflux disease): Plan: UTI Outpatient urine clx 01/05 showing E coli and Enterobacter cloacae resistant to zosyn but sensitive to bactrim and cefepime, however allergic to bactrim. Tolerated rocephin during recent encounter. Patient on chronic kenny. Changed on 01/11/22 Urine culture from 12/16/21 and 01/05/22 outpatient also grew E coli and Enterobacter. 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 Recently completed course of fidoxamicin. ALS s/p PEG tube Continue PEG tube feeding as at home, aspiration precautions. Nutrition recs noted Patient's oral mucosa dry. Patient cutting down on excessive suctioning. Reduce dosing of robinul Good oral hygiene Continue supportive care HTN BP was elevated yesterday but has been better controlled today. Will monitor Continue antihypertensive DVT prophylaxis- sc lovenox Code- Ok with CPR but no invasive ventilation per Admission and Anticipated Discharge Date Admission Date: January 10, 2022 Subjective Patient seen and examined Has slurred speech due to ALS Reports abd discomfort is due to diarrhea. Increased BM. Stool is loose. Not watery or bloody per RN Denied any fevers, chills Denied chest pain, cough, shortness of breath, palpitation Physical Exam Constitutional: no acute distress Eyes: PERRL, conjunctivae normal, anicteric sclerae ENMT: Dry oral mucosa Respiratory: normal respiratory effort, lungs clear to auscultation Cardiovascular: Rate/Rhythm: regular rate and regular rhythm S1 S2 Gastrointestinal (Abdomen): normal bowel sounds, soft, nontender, no hepatosplenomegaly Neurologic: PERRL, EOMI, accommodation nl, no face palsy, no dysarthria Slurred speech Results & Data Results & Data ([facility]) Vital Signs (Past 12 Hours) Vital Signs Temp Pulse Resp BP Pulse Ox 01/13/22 07:41 36.8 C 82 18 148/73 H 92 Laboratory Results Abnormal lab results 01/13/22 01/13/22 Range/Units 05:33 05:33 RBC 4.18 L (4.2-5.4) M/uL Hgb 11.9 L (12.0-16.0) g/dL MCHC 31.6 L (32-36) g/dL MPV 11.0 H (7.4-10.4) fL Sodium 133 L (136-145) mmol/L BUN 29 H (6-23) mg/dl Creatinine 0.43 L (0.6-1.2) mg/dl BUN/Creatinine Ratio 67.4 H (10-20) Glucose 131 H (70-99(Fasting)) mg/dl
[2022-01-13] MEDS: fentaNYL 12 MCG/HR TDSY TD SCH (18:20)
[2022-01-13] MEDS: CETIRIZINE HCL 10 MG TABLET PO SCH (21:18)
[2022-01-13] MEDS: ENOXAPARIN INJ 40 MG/0.4 ML SYR SQ SCH (22:42)
[2022-01-13] MEDS: LORazepam 0.5 MG TAB PO PRN (22:55)
[2022-01-14] MEDS: TUBE FEEDING WATER FLUSH GT SCH ×7 (00:36→23:57)
[2022-01-14] MEDS: CHECK fentaNYL PATCH PLACEMENT SCH ×4 (00:37→23:57)
[2022-01-14] MEDS: VANCOMYCIN HCL 125 MG/2.5ML SOLN PEG SCH ×5 (00:37→23:58)
[2022-01-14] MEDS: FIBERSOURCE HN 1.2 CAL 1000 ML BAG GT SCH ×2 (00:39→21:30)
[2022-01-14] MEDS: CEFEPIME 2,000 MG in SYRINGE 0 ML IV SCH ×3 (01:56→18:38)
[2022-01-14] MEDS: LEVOTHYROXINE SODIUM 112 MCG TABLET PEG SCH (05:34)
[2022-01-14] MEDS: ONDANSETRON INJ 2 MG/ML 2 ML VIAL IV PRN ×3 (05:44→21:30)
[2022-01-14] MEDS: HYDROmorphone HCL 2 MG TAB PO PRN ×3 (05:45→18:38)
[2022-01-14 06:39] LABS: Hematocrit (blood only) 39.5 % (37-47); Hemoglobin 13.1 g/dL (12.0-16.0); Mean Corpuscular Hemoglobin 29.9 pg (25-34); Mean Corpuscular Hgb Conc 33.2 g/dL (32-36); Mean Corpuscular Volume 90.2 fL (80-100); Mean Platelet Volume 11.2 fL (7.4-10.4); Platelet Count 378 K/uL (130-400); RDW Coefficient of Variation 13.3 % (11.5-14.5); RDW Standard Deviation 43.9 fL (36.4-46.3); Red Blood Count 4.38 M/uL (4.2-5.4); White Blood Count 9.29 K/uL (4.8-10.8)
[2022-01-14 06:57] LABS: BUN Creatinine Ratio 61.4 (10-20); Calcium 9.6 mg/dl (8.5-10.1); Creatinine Clr Calc Pharmacy 100.2 ml/min; Est GFR (African American) 112.8 ml/min; Est GFR (Non-African American) 97.4 ml/min; Potassium 4.4 mmol/L (3.5-5.1)
[2022-01-14] MEDS: GABAPENTIN 100 MG CAP PO SCH ×3 (09:02→21:02)
[2022-01-14] MEDS: FAMOTIDINE 20 MG TAB JT SCH (09:02)
[2022-01-14] MEDS: LANSOPRAZOLE 30 MG SOLTAB PEG SCH ×2 (09:03→21:03)
[2022-01-14] MEDS: GLYCOPYRROLATE 1 MG TAB PO SCH ×2 (09:03→20:55)
[2022-01-14] MEDS: guaiFENesin SUGAR FREE 200 MG/10 ML UDC PEG SCH ×4 (09:03→20:56)
[2022-01-14] MEDS: LIDOCAINE 5% 1 PATCH TD SCH (09:04)
[2022-01-14] MEDS: RILUZOLE PO SCH ×2 (09:04→21:05)
[2022-01-14] MEDS: NYSTATIN SUSP 500,000 U/5 ML UDC PO SCH ×3 (09:05→21:05)
[2022-01-14] MEDS: LOSARTAN POTASSIUM 50 MG TAB PEG SCH (09:05)
[2022-01-14] MEDS: SUCRALFATE 1 GM/10 ML UDC PEG SCH ×4 (09:06→20:57)
[2022-01-14] MEDS: SACCHAROMYCES BOULARDII 250 MG CAP PO SCH ×2 (09:06→21:03)
[2022-01-14] MEDS: LORazepam 0.5 MG TAB PO PRN ×2 (09:07→19:44)
--- NOTE | 2022-01-14 13:41 | Hospitalist Progress Note ---
Date of Service January 14, 2022 Assessment & Plan (1) Complicated UTI (urinary tract infection): (2) ALS (amyotrophic lateral sclerosis): (3) HTN (hypertension): (4) Hypothyroidism: (5) GERD (gastroesophageal reflux disease): Plan: UTI Outpatient urine clx 01/05 showing E coli and Enterobacter cloacae resistant to zosyn but sensitive to bactrim and cefepime, however allergic to bactrim. Tolerated rocephin during recent encounter. Patient on chronic kenny. Changed on 01/11/22 Urine culture from 12/16/21 and 01/05/22 outpatient also grew E coli and Enterobacter. Concern for colonization Urine culture from admission 01/10/22 growing E coli multidrug resistant Had discussed with pharm yesterday based on sensitivities Continue increased Cefepime 2g q8h Will get ID consult tomorrow CT abd/p did not show any acute abnormalities H/o recurrent C diff Was started on po vanc due to h/o recurrent C diff Was started on 'prophylactic' po vanco as above. Recently completed course of fidoxamicin. C diff gene test on 12/25/21 was negative. However in view of continuos diarrhea, will recheck C diff gene/toxin Continue florastor ALS s/p PEG tube Continue PEG tube feeding as at home, aspiration precautions. Nutrition recs noted Patient's oral mucosa dry. Patient cutting down on excessive suctioning. Reduce dosing of robinul Good oral hygiene Continue supportive care HTN Continue antihypertensive Monitor DVT prophylaxis- sc lovenox Code- Ok with CPR but no invasive ventilation per Admission and Anticipated Discharge Date Admission Date: January 10, 2022 Subjective Patient seen and examined Has slurred speech due to ALS Continues to have loose stools Reports discomfort around anus Reports some abd discomfort which she related to the diarrhea. Occasional nausea Denied any fevers, chills Denied chest pain, cough, shortness of breath, palpitation Physical Exam Constitutional: no acute distress Eyes: PERRL, conjunctivae normal, anicteric sclerae ENMT: Dry oral mucosa. Respiratory: normal respiratory effort, lungs clear to auscultation Cardiovascular: Rate/Rhythm: regular rate and regular rhythm S1 S2 Gastrointestinal (Abdomen): normal bowel sounds, soft, nontender, no hepatosplenomegaly Erythematous skin around anal opening and perineum Musculoskeletal: No pedal edema Neurologic: PERRL, EOMI, Power in LE: 3+/5 in RLE, 3/5 in LLE. 4/5 in RUE Genitourinary: Kenny in situ Results & Data Results & Data ([facility]) Vital Signs (Past 12 Hours) Vital Signs Temp Pulse Resp BP Pulse Ox 01/14/22 07:34 36.7 C 86 22 158/77 H 91 Laboratory Results Abnormal lab results 01/14/22 01/14/22 01/14/22 Range/Units 06:02 06:02 12:51 MPV 11.2 H (7.4-10.4) fL Sodium 134 L (136-145) mmol/L BUN 27 H (6-23) mg/dl Creatinine 0.44 L (0.6-1.2) mg/dl BUN/Creatinine Ratio 61.4 H (10-20) Glucose 106 H (70-99(Fasting)) mg/dl Stl C. diff Tox B Gene Positive Cdiff Gene H (Neg)
[2022-01-14 14:56] LABS: Cdiff Antigen Positive; Cdiff Toxin A+B Negative Cdiff Toxin (Negative)
[2022-01-14] MEDS: LOPERAMIDE LIQUID 120 ML BOTTLE PEG PRN (18:39)
[2022-01-14] MEDS: ENOXAPARIN INJ 40 MG/0.4 ML SYR SQ SCH (21:02)
[2022-01-14] MEDS: CETIRIZINE HCL 10 MG TABLET PO SCH (21:02)
[2022-01-14] MEDS: MIRTAZAPINE TAB 15 MG TAB GT PRN (21:04)
[2022-01-15] MEDS: CEFEPIME 2,000 MG in SYRINGE 0 ML IV SCH ×3 (01:57→18:09)
[2022-01-15] MEDS: TUBE FEEDING WATER FLUSH GT SCH ×5 (04:04→19:47)
[2022-01-15] MEDS: ONDANSETRON INJ 2 MG/ML 2 ML VIAL IV PRN (06:05)
[2022-01-15] MEDS: VANCOMYCIN HCL 125 MG/2.5ML SOLN PEG SCH ×3 (06:07→18:09)
[2022-01-15] MEDS: LEVOTHYROXINE SODIUM 112 MCG TABLET PEG SCH (06:07)
[2022-01-15 08:23] LABS: Hematocrit (blood only) 36.6 % (37-47); Hemoglobin 11.8 g/dL (12.0-16.0); Mean Corpuscular Hemoglobin 28.9 pg (25-34); Mean Corpuscular Hgb Conc 32.2 g/dL (32-36); Mean Corpuscular Volume 89.7 fL (80-100); Mean Platelet Volume 10.7 fL (7.4-10.4); Platelet Count 361 K/uL (130-400); RDW Coefficient of Variation 13.3 % (11.5-14.5); Red Blood Count 4.08 M/uL (4.2-5.4); White Blood Count 10.49 K/uL (4.8-10.8)
[2022-01-15 08:51] LABS: Est GFR (African American) 113.7 ml/min; Est GFR (Non-African American) 98.1 ml/min; Potassium 4.5 mmol/L (3.5-5.1)
[2022-01-15 08:52] LABS: BUN Creatinine Ratio 55.8 (10-20); Calcium 9.2 mg/dl (8.5-10.1); Creatinine Clr Calc Pharmacy 102.6 ml/min; Magnesium 1.9 mg/dl (1.7-2.4)
[2022-01-15] MEDS: CHECK fentaNYL PATCH PLACEMENT SCH ×2 (09:45→15:48)
[2022-01-15] MEDS: LORazepam 0.5 MG TAB PO PRN ×2 (09:45→19:54)
[2022-01-15] MEDS: HYDROmorphone HCL 2 MG TAB PO PRN (09:45)
[2022-01-15] MEDS: LOPERAMIDE LIQUID 120 ML BOTTLE PEG PRN ×2 (09:46→16:41)
[2022-01-15] MEDS: guaiFENesin SUGAR FREE 200 MG/10 ML UDC PEG SCH ×4 (09:47→19:55)
[2022-01-15] MEDS: SUCRALFATE 1 GM/10 ML UDC PEG SCH ×4 (09:47→19:57)
[2022-01-15] MEDS: GLYCOPYRROLATE 1 MG TAB PO SCH ×2 (09:49→19:55)
[2022-01-15] MEDS: RILUZOLE PO SCH ×2 (09:49→19:52)
[2022-01-15] MEDS: LANSOPRAZOLE 30 MG SOLTAB PEG SCH ×2 (09:50→19:55)
[2022-01-15] MEDS: LOSARTAN POTASSIUM 50 MG TAB PEG SCH (09:50)
[2022-01-15] MEDS: SACCHAROMYCES BOULARDII 250 MG CAP PO SCH ×2 (09:50→20:00)
[2022-01-15] MEDS: LIDOCAINE 5% 1 PATCH TD SCH (09:51)
[2022-01-15] MEDS: NYSTATIN SUSP 500,000 U/5 ML UDC PO SCH ×3 (09:51→20:02)
[2022-01-15] MEDS: GABAPENTIN 100 MG CAP PO SCH ×3 (09:51→20:00)
[2022-01-15] MEDS: FAMOTIDINE 20 MG TAB JT SCH (09:51)
--- NOTE | 2022-01-15 14:13 | Hospitalist Progress Note ---
Date of Service January 15, 2022 Assessment & Plan (1) Complicated UTI (urinary tract infection): (2) ALS (amyotrophic lateral sclerosis): (3) HTN (hypertension): (4) Hypothyroidism: (5) GERD (gastroesophageal reflux disease): Plan: UTI Outpatient urine clx 01/05 showing E coli and Enterobacter cloacae resistant to zosyn but sensitive to bactrim and cefepime, however allergic to bactrim. Tolerated rocephin during recent encounter. Patient on chronic kenny. Changed on 01/11/22 Urine culture from 12/16/21 and 01/05/22 outpatient also grew E coli and Enterobacter. Concern for colonization Urine culture from admission 01/10/22 growing E coli multidrug resistant Had discussed with pharm yesterday based on sensitivities Continue increased Cefepime 2g q8h Awaiting ID evaluation and recommendations CT abd/p did not show any acute abnormalities H/o recurrent C diff Was started on po vanc due to h/o recurrent C diff Was started on prophylactic po vanco as above. Recently completed course of fidoxamicin. C diff gene test on 12/25/21 was negative. C diff gene test is positive but toxin is negative Diarrhea seem to be improving per patient Continue florastor ALS s/p PEG tube Continue PEG tube feeding as at home, aspiration precautions. Nutrition recs noted Patient's oral mucosa dry. Patient cutting down on excessive suctioning. Robinul had been reduced to bid Good oral hygiene Continue supportive care HTN Continue antihypertensive Monitor DVT prophylaxis- sc lovenox Code- Ok with CPR but no invasive ventilation per Admission and Anticipated Discharge Date Admission Date: January 10, 2022 Subjective Patient seen and examined Has slurred speech due to ALS Reports diarrhea is improved today Reports occasional abdominal discomfort Denied any fevers, chills Denied chest pain, cough, shortness of breath, palpitation Physical Exam Constitutional: no acute distress Eyes: PERRL, conjunctivae normal, anicteric sclerae ENMT: Dry oral mucosa Respiratory: normal respiratory effort, lungs clear to auscultation Cardiovascular: Rate/Rhythm: regular rate and regular rhythm S1 S2 Gastrointestinal (Abdomen): normal bowel sounds, soft, nontender, no hepatosp lenomegaly Musculoskeletal: No pedal edema Skin: Erythema around buttocks and perineum Neurologic: PERRL, EOMI. Slurred speech Results & Data Results & Data ([facility]) Vital Signs (Past 12 Hours) Vital Signs Temp Pulse Resp BP Pulse Ox 01/15/22 07:53 36.7 C 84 16 135/64 91 Laboratory Results Abnormal lab results 01/15/22 01/15/22 Range/Units 08:04 08:04 RBC 4.08 L (4.2-5.4) M/uL Hgb 11.8 L (12.0-16.0) g/dL Hct 36.6 L (37-47) % MPV 10.7 H (7.4-10.4) fL Sodium 132 L (136-145) mmol/L BUN 24 H (6-23) mg/dl Creatinine 0.43 L (0.6-1.2) mg/dl BUN/Creatinine Ratio 55.8 H (10-20) Glucose 115 H (70-99(Fasting)) mg/dl
[2022-01-15] MEDS: MIRTAZAPINE TAB 15 MG TAB GT PRN (19:53)
[2022-01-15] MEDS: ENOXAPARIN INJ 40 MG/0.4 ML SYR SQ SCH (19:58)
[2022-01-15] MEDS: CETIRIZINE HCL 10 MG TABLET PO SCH (20:01)
[2022-01-16] MEDS: HYDROmorphone HCL 2 MG TAB PO PRN ×5 (00:05→23:25)
[2022-01-16] MEDS: VANCOMYCIN HCL 125 MG/2.5ML SOLN PEG SCH ×4 (00:12→21:18)
[2022-01-16] MEDS: TUBE FEEDING WATER FLUSH GT SCH ×6 (01:07→21:09)
[2022-01-16] MEDS: CHECK fentaNYL PATCH PLACEMENT SCH ×3 (01:08→16:17)
[2022-01-16] MEDS: CEFEPIME 2,000 MG in SYRINGE 0 ML IV SCH ×2 (02:22→10:25)
[2022-01-16] MEDS: LORazepam 0.5 MG TAB PO PRN ×4 (04:04→23:26)
[2022-01-16] MEDS: LOPERAMIDE LIQUID 120 ML BOTTLE PEG PRN (05:24)
[2022-01-16] MEDS: LEVOTHYROXINE SODIUM 112 MCG TABLET PEG SCH (05:29)
[2022-01-16 06:42] LABS: Hematocrit (blood only) 39.1 % (37-47); Hemoglobin 12.5 g/dL (12.0-16.0); Mean Corpuscular Hemoglobin 28.7 pg (25-34); Mean Corpuscular Volume 89.7 fL (80-100); Mean Platelet Volume 10.7 fL (7.4-10.4); Platelet Count 402 K/uL (130-400); RDW Coefficient of Variation 13.4 % (11.5-14.5); RDW Standard Deviation 44.1 fL (36.4-46.3); Red Blood Count 4.36 M/uL (4.2-5.4); White Blood Count 9.76 K/uL (4.8-10.8)
[2022-01-16 07:02] LABS: Calcium 9.8 mg/dl (8.5-10.1); Creatinine Clr Calc Pharmacy 88.2 ml/min; Est GFR (African American) 108.2 ml/min; Est GFR (Non-African American) 93.4 ml/min; Potassium 4.3 mmol/L (3.5-5.1)
[2022-01-16] MEDS: ALBUT/IPRATROP 3MG/0.5MG NEB 3 ML VIAL INH PRN ×2 (07:47→15:49)
[2022-01-16] MEDS: guaiFENesin SUGAR FREE 200 MG/10 ML UDC PEG SCH ×4 (07:47→21:16)
[2022-01-16] MEDS: LIDOCAINE 5% 1 PATCH TD SCH (07:48)
[2022-01-16] MEDS: GLYCOPYRROLATE 1 MG TAB PO SCH ×3 (07:48→21:14)
[2022-01-16] MEDS: NYSTATIN SUSP 500,000 U/5 ML UDC PO SCH ×3 (07:49→21:18)
[2022-01-16] MEDS: HYOSCYAMINE SULFATE 0.125 MG TAB PO PRN (07:49)
[2022-01-16] MEDS ORDERED: LORazepam 2 MG/1 ML VIAL IV ONE (08:31)
[2022-01-16] MEDS: SACCHAROMYCES BOULARDII 250 MG CAP PO SCH ×2 (10:25→21:11)
[2022-01-16] MEDS: LOSARTAN POTASSIUM 50 MG TAB PEG SCH (10:25)
[2022-01-16] MEDS: RILUZOLE PO SCH ×2 (10:25→21:10)
[2022-01-16] MEDS: FAMOTIDINE 20 MG TAB JT SCH (10:25)
[2022-01-16] MEDS: GABAPENTIN 100 MG CAP PO SCH ×3 (10:25→21:09)
[2022-01-16] MEDS: LANSOPRAZOLE 30 MG SOLTAB PEG SCH ×2 (10:25→21:14)
[2022-01-16] MEDS: SUCRALFATE 1 GM/10 ML UDC PEG SCH ×4 (10:25→21:17)
[2022-01-16] MEDS: ASCORBIC ACID 500 MG TAB PO SCH (17:07)
[2022-01-16] MEDS: fentaNYL 12 MCG/HR TDSY TD SCH (17:07)
--- NOTE | 2022-01-16 18:38 | Hospitalist Progress Note ---
Date of Service January 16, 2022 Assessment & Plan (1) Complicated UTI (urinary tract infection): (2) ALS (amyotrophic lateral sclerosis): (3) HTN (hypertension): (4) Hypothyroidism: (5) GERD (gastroesophageal reflux disease): Plan: Complicated UTI Outpatient urine cx 01/05 showing E coli and Enterobacter cloacae resistant to zosyn but sensitive to bactrim and cefepime Pt has multiple allergies Patient tolerated Rocephin during recent encounter. H/O Chronic kenny. Changed on 01/11/22 CT abd/p did not show any acute abnormalities Urine culture from 12/16/21 and 01/05/22 outpatient also grew E coli and Enterobacter. Concern for colonization Urine culture from admission 01/10/22 growing E coli multidrug resistant Patient received Cefepime 2g [id number] for 7 days Appreciate ID Input We will monitor off antibiotics Started on methenamine hippurate, vitamin C H/o Recurrent C diff Was started on prophylactic po vanco Recently completed course of fidoxamicin. C diff gene test on 12/25/21 was negative. C diff gene test is positive but toxin is negative Continue florastor Continue p.o. vancomycin every 12 hours for 1 week and then daily for 1 more week then stop aspirin 80 Appreciate ID input Diarrhea slowly improving ALS s/p PEG tube Continue PEG tube feeding as at home, aspiration precautions. Nutrition on board Good oral hygiene Continue supportive care HTN Continue antihypertensive Monitor DVT Px: SQ Lovenox Code Status Ok with CPR but no invasive ventilation per Admission and Anticipated Discharge Date Admission Date: January 10, 2022 Subjective Patient is seen and examined at bedside States having generalized weakness, nausea Diarrhea slowly improving Discussed with patient's family at bedside Denies any chest pain, dizziness, abdominal pain Offers no other complaints Review of Systems Review of Systems: All systems reviewed & are unremarkable except as noted in Subjective Physical Exam Physical Exam: Physical Exam: Vitals signs as noted above General Appearance:Chronic ill appearing, no apparent distress Head: normocephalic, Atraumatic, Slurred speech Eyes: normal inspection, EOMI Neck: supple, Trachea midline Respiratory/Chest: Coarse breath sounds, No accessory muscle use Cardiovascular: S1, S2, No murmur Abdomen/GI:Soft, Non tender, Bowel sounds present Extremities/Musculoskeletal:normal inspection, + edema Neurologic/Psych:AAO, B/L LE 2/5, LUE 0/5 Skin: normal color, warm Results & Data Results & Data ([facility]) Vital Signs (Past 12 Hours) Vital Signs Temp Pulse Resp BP Pulse Ox 01/16/22 07:32 36.6 C 83 18 137/84 93 Laboratory Results Short CBC 01/16/22 Range/Units 05:57 WBC 9.76 (4.8-10.8) K/uL Hgb 12.5 (12.0-16.0) g/dL Hct 39.1 (37-47) % Plt Count 402 H (130-400) K/uL BMP 01/16/22 05:57 Sodium 132 L Potassium 4.3 Chloride 97 L Carbon Dioxide 28 BUN 26 H Creatinine 0.50 L Glucose 122 H Calcium 9.8
[2022-01-16] MEDS: ENOXAPARIN INJ 40 MG/0.4 ML SYR SQ SCH (21:09)
[2022-01-16] MEDS: CETIRIZINE HCL 10 MG TABLET PO SCH (21:10)
[2022-01-16] MEDS: MIRTAZAPINE TAB 15 MG TAB GT PRN (21:12)
[2022-01-16] MEDS: METHENAMINE HIPPURATE 1 GM TAB PO SCH (21:15)
[2022-01-17] MEDS: TUBE FEEDING WATER FLUSH GT SCH ×4 (00:51→13:33)
[2022-01-17] MEDS: CHECK fentaNYL PATCH PLACEMENT SCH ×2 (00:51→09:40)
[2022-01-17] MEDS: LORazepam 0.5 MG TAB PO PRN ×2 (06:06→13:47)
[2022-01-17] MEDS: HYDROmorphone HCL 2 MG TAB PO PRN ×2 (06:06→13:48)
[2022-01-17] MEDS: LEVOTHYROXINE SODIUM 112 MCG TABLET PEG SCH (06:09)
[2022-01-17 07:37] LABS: BUN Creatinine Ratio 54.2 (10-20); Calcium 9.6 mg/dl (8.5-10.1); Creatinine Clr Calc Pharmacy 74.8 ml/min; Est GFR (African American) 102.5 ml/min; Est GFR (Non-African American) 88.4 ml/min; Potassium 4.9 mmol/L (3.5-5.1)
[2022-01-17] MEDS: GLYCOPYRROLATE 1 MG TAB PO SCH ×2 (09:49→13:49)
[2022-01-17] MEDS: METHENAMINE HIPPURATE 1 GM TAB PO SCH (09:49)
[2022-01-17] MEDS: LANSOPRAZOLE 30 MG SOLTAB PEG SCH (09:51)
[2022-01-17] MEDS: SACCHAROMYCES BOULARDII 250 MG CAP PO SCH (09:52)
[2022-01-17] MEDS: GABAPENTIN 100 MG CAP PO SCH ×2 (09:52→13:50)
[2022-01-17] MEDS: HYOSCYAMINE SULFATE 0.125 MG TAB PO PRN (09:52)
[2022-01-17] MEDS: FAMOTIDINE 20 MG TAB JT SCH (09:52)
[2022-01-17] MEDS: ASCORBIC ACID 500 MG TAB PO SCH (09:53)
[2022-01-17] MEDS: LOSARTAN POTASSIUM 50 MG TAB PEG SCH (09:53)
[2022-01-17] MEDS: guaiFENesin SUGAR FREE 200 MG/10 ML UDC PEG SCH ×2 (09:54→13:49)
[2022-01-17] MEDS: NYSTATIN SUSP 500,000 U/5 ML UDC PO SCH ×2 (09:55→14:02)
[2022-01-17] MEDS: RILUZOLE PO SCH (09:55)
[2022-01-17] MEDS: LIDOCAINE 5% 1 PATCH TD SCH (09:56)
[2022-01-17] MEDS: SUCRALFATE 1 GM/10 ML UDC PEG SCH ×2 (09:56→13:48)
[2022-01-17] MEDS: VANCOMYCIN HCL 125 MG/2.5ML SOLN PEG SCH (09:57)
--- NOTE | 2022-01-17 13:02 | Hospitalist Progress Note ---
Date of Service January 17, 2022 Assessment & Plan (1) Complicated UTI (urinary tract infection): (2) ALS (amyotrophic lateral sclerosis): (3) HTN (hypertension): (4) Hypothyroidism: (5) GERD (gastroesophageal reflux disease): Plan: Complicated UTI Outpatient urine cx 01/05 showing E coli and Enterobacter cloacae resistant to zosyn but sensitive to bactrim and cefepime Pt has multiple allergies Patient tolerated Rocephin during recent encounter. H/O Chronic kenny. Changed on 01/11/22 CT abd/p did not show any acute abnormalities Urine culture from 12/16/21 and 01/05/22 outpatient also grew E coli and Enterobacter. Concern for colonization Urine culture from admission 01/10/22 growing E coli multidrug resistant Patient received Cefepime 2g [id number] for 7 days Appreciate ID Input We will monitor off antibiotics Started on methenamine hippurate, vitamin C as recommended by ID Plan to discharge home today H/o Recurrent C diff Was started on prophylactic po vanco Recently completed course of fidoxamicin. C diff gene test on 12/25/21 was negative. C diff gene test is positive but toxin is negative Continue florastor Continue p.o. vancomycin every 12 hours for 1 week and then daily for 1 more week then stop aspirin 80 Appreciate ID input Diarrhea improving ALS s/p PEG tube Continue PEG tube feeding as at home, aspiration precautions. Nutrition on board Good oral hygiene Continue supportive care HTN Continue antihypertensive Monitor DVT Px: SQ Lovenox Code Status Ok with CPR but no invasive ventilation per Disposition Home with Home Health Admission and Anticipated Discharge Date Admission Date: January 10, 2022 Subjective Patient is seen and examined at bedside Semiformed BMs today No new complaints Discussed with patient's family at bedside Has generalized weakness Denies any chest pain, dizziness, abdominal pain Plan to discharge home today Review of Systems Review of Systems: All systems reviewed & are unremarkable except as noted in Subjective Physical Exam Physical Exam: Physical Exam: Vitals signs as noted above General Appearance:Chronic ill appearing, no apparent distress Head: normocephalic, Atraumatic, Slurred speech Eyes: normal inspection, EOMI Neck: supple, Trachea midline Respiratory/Chest: normal breath sounds, No accessory muscle use Cardiovascular: S1, S2, No murmur Abdomen/GI:Soft, Non tender, Bowel sounds present Extremities/Musculoskeletal:normal inspection, + edema Neurologic/Psych:AAO, B/L LE 2/5, LUE 0/5 Skin: normal color, warm Results & Data Results & Data ([facility]) Vital Signs (Past 12 Hours) Vital Signs Temp Pulse Resp BP Pulse Ox 01/17/22 07:27 36.8 C 80 16 135/80 94 Laboratory Results [facility] 01/17/22 06:53 Sodium 132 L Potassium 4.9 Chloride 96 L Carbon Dioxide 30 BUN 32 H Creatinine 0.59 L Glucose 128 H Calcium 9.6
--- NOTE | 2022-01-17 13:22 | Discharge Summary ---
Date of Service January 17, 2022 Admission HPI Per Admitting Provider 76 year old female with h/o ALS s/p PEG tube, recurrent C diff, CILD, HTN, Hypothyroidism, who presented to the ED for UTI and some shortness of breath at the recommendation of her PCP. History taken from at bedside and patient. Patient was recently admitted to [facility] 12/16-12/28 for increased secretions and some shortness of breath. She was still having C diff diarrhea despite vancomycin and completed a course of fidaxomicin and repeat C diff 12/25 was negative. States she has home health and was noted to have foul smelling urine, lower abdominal discomfort along with intermittent delusion and intermittent shortness of breath for which she had urine clx sent by her PCP on 01/07 which showed E coli and Enterobacter cloacae with multiple drug resistance and no oral ABx option given her allergy and was recommended to come to ED for IV antibiotic. States having intermittent low grade fever upto 99.6 at home for past few days. Also has intermittent heavy breathing at times but currently looks fine- no tachypnea, increased work of breathing and comfortable on NC. States she was discharged on NC to be worn at night but for past couple days, she has been using it during day time too as her oxygen saturation was in high 80s. She has been suctioning herself. No vomiting. Her kenny was changed during recent hospital admission. She felt comfortable and denied any needs during my encounter. She was given IV zosyn in ED but her OP urine clx shows resistance to zosyn but sensitive to bactrim and cefepime, however she is allergic to bactrim hence starting on cefepime as she tolerated rocephin during recent h ospitalization. Admission Exam Per Admitting Provider Physical Exam Physical Exam: General: Chronically ill looking, Lying comfortably in bed, not in distress, on NC HEENT: EOMI, ALONDRA, Dry oral mucosa Chest: Fair breath sounds bilaterally, no wheezes, mild rales on left side CVS: Regular rate and rhythm, normal heart sounds, no murmur Abdomen: Soft, non tender, not distended, normal bowel sounds, PEG tube in place Neuro: Awake, alert, oriented, speaking minimally only in couple words Extremities: No cyanosis, clubbing or edema Kenny with clear urine Principal Diagnosis Urinary tract infection H/O Recurrent C diff infection ALS Discharge Data Allergies Allergy/AdvReac Type Severity Reaction Status Date / Time Iodinated Contrast Media Allergy Severe dyspnea Verified 01/10/22 15:33 azithromycin Allergy Intermediate rash Verified 01/10/22 15:33 cefaclor Allergy Intermediate hives Verified 01/10/22 15:33 erythromycin base Allergy Intermediate hives Verified 01/10/22 15:33 levalbuterol Allergy Intermediate chest pain Verified 01/10/22 15:33 minocycline Allergy Intermediate rash Verified 01/10/22 15:33 nitrofurantoin Allergy Intermediate possible Verified 01/10/22 15:33 hives or dyspnea phenazopyridine Allergy Intermediate dyspnea Verified 01/10/22 15:33 Sulfa (Sulfonamide Allergy Intermediate hives Verified 01/10/22 15:33 Antibiotics) oxycodone [From OxyContin] Allergy Unknown Unverified 01/10/22 15:33 metronidazole AdvReac Intermediate GI symptoms Verified 01/10/22 15:33 morphine AdvReac Intermediate vomiting Verified 01/10/22 15:33 levofloxacin AdvReac Mild abdominal Verified 01/10/22 15:33 pain albuterol [From Ventolin HFA] AdvReac Chest Pain Unverified 01/10/22 15:33 iodine AdvReac Anaphylaxis Unverified 01/10/22 15:33 tramadol AdvReac Confusion Unverified 01/10/22 15:33 Consultations 01/10/22 14:17 ED Decision to Admit Stat 01/10/22 19:33 Consult Palliative Care Routine 01/14/22 07:28 Consult Infectious Diseases Routine Ordered Studies 01/10/22 12:55 CT abd pelvis wo con Stat CT head/brain wo con Stat Hospital Course (1) Complicated UTI (urinary tract infection): (2) ALS (amyotrophic lateral sclerosis): (3) HTN (hypertension): (4) Hypothyroidism: (5) GERD (gastroesophageal reflux disease): Complicated UTI Outpatient urine cx 01/05 showing E coli and Enterobacter cloacae resistant to zosyn but sensitive to bactrim and cefepime Pt has multiple allergies Patient tolerated Rocephin during recent encounter. H/O Chronic kenny. Changed on 01/11/22 CT abd/p did not show any acute abnormalities Urine culture from 12/16/21 and 01/05/22 outpatient also grew E coli and Enterobacter. Concern for colonization Urine culture from admission 01/10/22 growing E coli multidrug resistant Patient received Cefepime 2g [id number] for 7 days Appreciate ID Input We will monitor off antibiotics Started on methenamine hippurate, vitamin C as recommended by ID Plan to discharge home today H/o Recurrent C diff Was started on prophylactic po vanco Recently completed course of fidoxamicin. C diff gene test on 12/25/21 was negative. C diff gene test is positive but toxin is negative Continue florastor Continue p.o. vancomycin every 12 hours for 1 week and then daily for 1 more week then stop aspirin 80 Appreciate ID input Diarrhea improving ALS s/p PEG tube Continue PEG tube feeding as at home, aspiration precautions. Nutrition on board Good oral hygiene Continue supportive care HTN Continue antihypertensive Monitor DVT Px: SQ Lovenox Code Status Ok with CPR but no invasive ventilation per Disposition Home with Home Health Total Time Total Time Spent Total Time Spent (In Minutes): 45 minutes Discharge Plan Discharge Items Patient Disposition: Home - Home Health Services Reason For Visit: UTI Discharge Diagnosis: Urinary tract infection Diarrhea Activity: Per Instructions section Exercise/Sports: Gradually increase as tolerated Non-emergency contact: Primary Care Provider Call non-emergency contact if: you have any medication questions, your symptoms worsen, your pain is concerning for you and you have a fever Follow-up/Referrals: Devonte Sweeney DO [Primary Care Provider] - (Date & Time 01/22/2022 2:00 PM Provider Maxine Isaac DO Department Family Practice [facility] Dr Sweeney does not have any openings next week. Dr Isaac is a colleague. ) Dietitian Info: Tube feeds Diet: Other - See Diet Comment Addtl Attending Provider Instructions: Follow-up with your primary care physician Dr. Devonte Sweeney on 01/22/2022 2:00 PM Seek immediate medical attention if your symptoms reoccur or worsen Please take all medications as instructed on discharge list below. Please call if you have any questions or problems. You can reach a [facility] hospitalist on duty at [facility] 24 hours a day by calling [phone] Vancomycin Course: Complete the course as prescribed. Continue vancomycin 125 mg twice a day for 1 week and then take once a day for 1 week and stop. Pending Studies at Discharge: No Stand-Alone Forms: My [facility], Smoking Cessation Medications and DC Order Prescriptions: New methenamine hippurate 1 gram Tablet 1 g PO BID Qty: 60 RF: 0 ascorbic acid (vitamin C) [Vitamin C] 500 mg Tablet 500 mg PO QAM Qty: 30 RF: 0 vancomycin 125 mg capsule 125 mg PO DIRECTED Qty: 21 RF: 0 Continued losartan 50 mg tablet 100 mg feeding tube QAM RF: 0 glycopyrrolate 2 mg tablet 2 mg feeding tube TID RF: 0 levothyroxine 112 mcg tablet 112 mcg feeding tube DAILYBB RF: 0 hydroxyzine HCl 25 mg tablet 25 mg feeding tube TID PRN (Reason: Itching) RF: 0 riluzole 50 mg tablet 50 mg feeding tube BID RF: 0 fluconazole 100 mg tablet 100 mg feeding tube QAM RF: 0 hydrocortisone 2.5 % cream with perineal applicator 1 applic PA BID PRN (Reason: Hemorrhoids) RF: 0 hyoscyamine sulfate 0.125 mg tablet, sublingual 0.125 mg feeding tube DAILY PRN (Reason: abdominal cramps) RF: 0 gabapentin 100 mg capsule 100 mg feeding tube TID RF: 0 famotidine 40 mg/5 mL (8 mg/mL) suspension 40 mg feeding tube QAM RF: 0 lorazepam 1 mg tablet 1 mg feeding tube QID PRN (Reason: Anxiety) RF: 0 fluticasone propionate 50 mcg/actuation spray,suspension 2 spray INTRANASAL DAILY PRN (Reason: Allergy Symptoms) RF: 0 simethicone [Simethicone-80] 80 mg Tablet,Chewable 80 mg feeding tube DAILY PRN (Reason: excessive gas) RF: 0 cholestyramine (with sugar) 4 gram powder in packet 0.5 - 1 ea feeding tube BID RF: 0 mirtazapine 7.5 mg tablet 7.5 mg feeding tube HS PRN (Reason: Sleep) RF: 0 fentanyl 12 mcg/hr patch 72 hour 12 mcg transdermal Q72H RF: 0 Guaifenesin 400mg/20ml 20 ml feeding tube Q4H PRN (Reason: mucus) RF: 0 nystatin 100,000 unit/mL suspension 10 ml PO TID PRN (Reason: mouth sores) RF: 0 sucralfate 100 mg/mL suspension 1 g PO QID RF: 0 Saccharomyces boulardii [Florastor] 250 mg capsule 250 mg feeding tube QAM RF: 0 hydromorphone [Dilaudid] 2 mg tablet 1 mg feeding tube Q4H PRN (Reason: pain) RF: 0 lidocaine 5 % Adhesive Patch,Medicated 1 patch TOPICAL DAILY PRN (Reason: Pain) RF: 0 scopolamine base 1 mg over 3 days patch 3 day 1 patch transdermal Q3D RF: 0 albuterol sulfate 2.5 mg /3 mL (0.083 %) solution for nebulization 2.5 mg inhalation Q4H PRN (Reason: Wheezing) RF: 0 ondansetron HCl 4 mg tablet 4 mg feeding tube Q6H RF: 0 dicyclomine 20 mg tablet 20 mg feeding tube Q6H PRN (Reason: Diarrhea) RF: 0 levocetirizine [Xyzal] 5 mg Tablet 5 mg feeding tube HS PRN (Reason: Allergy Symptoms) RF: 0 menthol-zinc oxide [Calmoseptine] 0.44-20.6 % Ointment 1 applic TOPICAL QID PRN (Reason: sores) RF: 0 Probiotic 3 billion cell Capsule 0 mmu cells feeding tube HS RF: 0 lansoprazole 30 mg tablet,disintegrat, delay rel 30 mg feeding tube BID Qty: 0 RF: 0 Discharge Orders: Discharge Order (Routine); Ordered 01/17/22 Ordered By: Tejinder Roberts Admission Data Admit Date/Time: 01/10/22 15:31 Attending Provider: Tejinder Roberts Admit Provider: Franc Araiza Primary Care Provider: Devonte Sweeney Other Providers: Franc Araiza ; Rosa Iyer ; Leodan Mccarthy ; Sunday Chandler ; Jere Ocampo I. ; Soto Stroud II ; Radha Haro ; Tremayne Villarreal ; Micky Valdez ; [facility]
== END 2022-01-17 15:29 | disposition home health service (06) | DRG 690 ==
LOC: ED 12:31 → 3N 15:31 → SUATTDRO 15:31 → 3N 18:50

== ENCOUNTER 2022-01-27 14:07 | Inpatient (IN) ==
[2022-01-27 16:48] LABS: Albumin Globulin Ratio 1.5 (0.9-2); Albumin Level 3.8 gm/dl (3.4-5.0); BUN Creatinine Ratio 67.4 (10-20); Bilirubin,Total 0.5 mg/dl (0.2-1.0); Creatinine Clr Calc Pharmacy 82.8 ml/min; Est GFR (African American) 111.2 ml/min; Globulin 2.6 gm/dl (2.5-4.0); Total Protein 6.4 gm/dl (6.0-8.3)
--- NOTE | 2022-01-27 16:54 | XRay Report ---
SINGLE VIEW CHEST CLINICAL HISTORY: Dyspnea. FINDINGS: An AP, portable, upright chest radiograph is compared to study dated 01/10/2022. The heart i s mildly enlarged. The pulmonary vasculature is noncongested. Chronic interstitial thickening is vani lar to previous. There is a small left pleural effusion with associated left basilar consolidation. T he lungs and pleural spaces are otherwise clear. No pneumothorax is seen. The skeletal structures are osteopenic. The bony thorax is grossly intact. Degenerative change is seen throughout the spine. Fus ion hardware is noted in the lower cervical spine. Cholecystectomy clips are seen in the right upper quadrant. IMPRESSION: 1. Mild cardiomegaly without radiographic evidence of congestive failure. 2. A small left pleural effusion with left basilar consolidation is similar to previous ACT 112: Negative or not required by law. Electronically signed by: Jeremiah Estrella M.D. 01/27/2022 4:51 PM
[2022-01-27 16:56] LABS: Basophils # (auto) 0.02 K/uL (0-0.2); Basophils % (auto) 0.3 %; Eosinophils # (auto) 0.08 K/uL (0-0.5); Eosinophils % (auto) 1.1 %; Hematocrit (blood only) 36.6 % (37-47); Hemoglobin 11.6 g/dL (12.0-16.0); Immature Granulocytes # (auto) 0.02 K/uL (0.00-0.02); Immature Granulocytes % (auto) 0.3 %; Lymphocytes # (auto) 0.92 K/uL (1.2-3.4); Lymphocytes % (auto) 12.4 %; Mean Corpuscular Hemoglobin 27.6 pg (25-34); Mean Corpuscular Hgb Conc 31.7 g/dL (32-36); Mean Corpuscular Volume 86.9 fL (80-100); Mean Platelet Volume 10.7 fL (7.4-10.4); Monocytes # (auto) 0.44 K/uL (0.11-0.59); Monocytes % (auto) 5.9 %; Neutrophils # (auto) 5.94 K/uL (1.4-6.5); Platelet Count 378 K/uL (130-400); RDW Standard Deviation 41.9 fL (36.4-46.3); Red Blood Count 4.21 M/uL (4.2-5.4); White Blood Count 7.42 K/uL (4.8-10.8)
[2022-01-27] MEDS ORDERED: MEROPENEM CONSULT ACTIVE PRN (16:57)
[2022-01-27] MEDS ORDERED: MEROPENEM 500 MG in SYRINGE 0 ML IV STA (16:57)
[2022-01-27 17:13] LABS: Appearance Urine Cloudy (Clear); Bacteria Urine Automated Negative (Negative); Bilirubin Urine Negative (Negative); Blood Urine Negative (Negative); Color Urine Dark Yellow; Epithelial Cell Urine Auto >30 /lpf (0-5); Glucose Urine UA Negative (Negative); Ketones Urine Negative (Negative); Leukocyte Esterase Urine 2+ (Negative); Nitrite Urine Negative (Negative); Urobilinogen Urine Negative (Negative); pH Urine 7.5 (4.5-7.5)
[2022-01-27 17:15] LABS: Protein Urine 1+ (Negative)
[2022-01-27 17:21] LABS: RBC Urine Automated 0-4 /hpf (0-4)
[2022-01-27 17:22] LABS: Calcium Oxalate Crystals Urine Present (None Prsent)
[2022-01-27 17:55] LABS: Influenza A virus by PCR Negative (Neg); Influenza B virus by PCR Negative (Neg); RSV by PCR Negative (Neg); SARS CoV2 RNA(COVID-19) InHosp NEGATIVE (Negative)
[2022-01-27] MEDS ORDERED: ONDANSETRON INJ 2 MG/ML 2 ML VIAL ONE (18:06)
[2022-01-27] MEDS: ONDANSETRON INJ 2 MG/ML 2 ML VIAL IV PRN ×2 (18:13→23:08)
--- NOTE | 2022-01-27 18:19 | History & Physical Report ---
Date of Service January 27, 2022 Assessment & Plan (1) Complicated UTI (urinary tract infection): Plan: #. CAUTI Patient was tested for UTI a week ago for increasing belly pain and being delirious. Patient has indwelling catheter. Patient was started on nitrofurantoin [documented allergy, but has used earlier this month] a day prior to arrival. Patient comes in with worsening nausea and feeling sick because of nitrofurantoin. Patient admitted for IV antibiotic. Urine analysis suggestive of UTI, admitting urine culture follow-up Patient started on meropenem 01/27 in the ED, continue with the same. #. Recent diagnosis of C diff currently under vanc po c/w home vanc, to be completed january 28 #. Other chronic medical conditions: ALS, PEG tube feeding ALS care including suction, anticholinergics, riluzole. Dietitian consult for PEG tube feeding. #. DVT prophylaxis: Heparin subcu #. Okay with CPR but no invasive ventilation per . History of Present Illness Chief Complaint: UTI, for IV antibiotics Primary Care Provider: Devonte Sweeney DO 76 year old female with h/o progressive ALS s/p PEG tube, recurrent C diff, CILD, HTN, Hypothyroidism, who presented to the ED 01/27 for UTI needing IV antibiotic. Patient's was at bedside, apparently patient was tested for UTI a week ago for worsening belly pain and being delirious per patient's . Patient corroborates. Since the articulation from patient is not very clear, history was mainly taken from the patient's to which patient corroborated. The results of the UTI came back yesterday and patient was allergic to oral options which were sulfa/Macrodantin/cephalosporins. She was prescribed nitrofurantoin despite history of allergy. Of note, patient was on Macrobid earlier this month as well. But patient comes in with increasing nausea and feeling sick after being started on nitrofurantoin. Patient denies any fever/headache/dizziness. Patient complains of ongoing secretion for which she continuously suctions. Patient complains of low belly pain. Patient has indwelling urinary catheter which was exchanged in the ED, urine culture has been sent again. Patient started on meropenem in the ED, will continue with the same. She does complain of ongoing respiratory problems including shortness of breath which is on and off because of her progressive ALS. She uses 2 L oxygen at home on and off and especially during sleep. Patient is continuing her p.o. vancomycin for recent C. difficile, to be completed on 28 January. She is being admitted for IV antibiotic for her UTI. Allergies Allergy/AdvReac Type Severity Reaction Status Date / Time Iodinated Contrast Media Allergy Severe dyspnea Verified 01/27/22 15:43 azithromycin Allergy Intermediate rash Verified 01/27/22 15:43 cefaclor Allergy Intermediate hives Verified 01/27/22 15:43 erythromycin base Allergy Intermediate hives Verified 01/27/22 15:43 levalbuterol Allergy Intermediate chest pain Verified 01/27/22 15:43 minocycline Allergy Intermediate rash Verified 01/27/22 15:43 nitrofurantoin Allergy Intermediate possible Verified 01/27/22 15:43 hives or dyspnea phenazopyridine Allergy Intermediate dyspnea Verified 01/27/22 15:43 Sulfa (Sulfonamide Allergy Intermediate hives Verified 01/27/22 15:43 Antibiotics) oxycodone [From OxyContin] Allergy Unknown Unverified 01/27/22 15:43 metronidazole AdvReac Intermediate GI symptoms Verified 01/27/22 15:43 morphine AdvReac Intermediate vomiting Verified 01/27/22 15:43 levofloxacin AdvReac Mild abdominal Verified 01/27/22 15:43 pain albuterol [From Ventolin HFA] AdvReac Chest Pain Unverified 01/27/22 15:43 iodine AdvReac Anaphylaxis Unverified 01/27/22 15:43 tramadol AdvReac Confusion Unverified 01/27/22 15:43 Home Medications Medication Instructions Recorded Confirmed Type losartan 50 mg tablet 100 mg FEEDING TUBE QAM 07/08/19 01/27/22 History lidocaine 5 % topical patch 1 patch TOPICAL DAILY PRN 07/22/21 01/27/22 History glycopyrrolate 2 mg tablet 2 mg FEEDING TUBE TID 11/22/21 01/27/22 History hydroxyzine HCl 25 mg tablet 25 mg FEEDING TUBE TID PRN 11/22/21 01/27/22 History levothyroxine 112 mcg tablet 112 mcg FEEDING TUBE DAILYBB 11/22/21 01/27/22 History riluzole 50 mg tablet 50 mg FEEDING TUBE BID 11/22/21 01/27/22 History albuterol sulfate 2.5 mg INHALATION Q4H PRN 12/16/21 01/27/22 History dicyclomine 20 mg tablet 20 mg FEEDING TUBE Q6H PRN 12/16/21 01/27/22 History lactobacillus combination no.4 3 0 mmu cells FEEDING TUBE HS 12/16/21 01/27/22 History billion cell capsule (Probiotic) levocetirizine 5 mg tablet (Xyzal) 5 mg FEEDING TUBE DAILY PRN 12/16/21 01/27/22 History menthol 0.44 %-zinc oxide 20.6 % 1 applic TOPICAL QID PRN 12/16/21 01/27/22 History topical ointment (Calmoseptine) ondansetron HCl 4 mg tablet 4 mg FEEDING TUBE Q6H 12/16/21 01/27/22 History scopolamine base 1 mg over 3 days 1 patch TRANSDERMAL Q3D 12/16/21 01/27/22 History transdermal patch lansoprazole 30 mg delayed 30 mg FEEDING TUBE BID #0 tab 12/28/21 01/27/22 Rx release,disintegrating tablet Guaifenesin 400mg/20ml 20 ml FEEDING TUBE Q4H PRN 01/10/22 01/27/22 History Saccharomyces boulardii 250 mg 250 mg FEEDING TUBE QAM 01/10/22 01/27/22 History capsule (Florastor) cholestyramine (with sugar) 4 gram 0.5 - 1 ea FEEDING TUBE BID PRN 01/10/22 01/27/22 History powder for susp in a packet famotidine 40 mg/5 mL (8 mg/mL) 40 mg FEEDING TUBE QAM 01/10/22 01/27/22 History oral suspension fluticasone propionate 50 2 spray INTRANASAL DAILY PRN 01/10/22 01/27/22 History mcg/actuation nasal spray,suspension gabapentin 100 mg capsule 100 mg FEEDING TUBE TID 01/10/22 01/27/22 History hydrocortisone 2.5 % topical cream 1 applic LA BID PRN 01/10/22 01/27/22 History with perineal applicator hydromorphone 2 mg tablet 1 mg FEEDING TUBE Q4H PRN 01/10/22 01/27/22 History (Dilaudid) hyoscyamine sulfate 0.125 mg 0.125 mg FEEDING TUBE DAILY PRN 01/10/22 01/27/22 History sublingual tablet lorazepam 1 mg tablet 1 mg FEEDING TUBE QID PRN 01/10/22 01/27/22 History mirtazapine 7.5 mg tablet 7.5 mg FEEDING TUBE HS PRN 01/10/22 01/27/22 History nystatin 100,000 unit/mL oral 10 ml PO TID PRN 01/10/22 01/10/22 History suspension simethicone 80 mg chewable tablet 80 mg FEEDING TUBE DAILY PRN 01/10/22 01/27/22 History sucralfate 100 mg/mL oral 1 g PO QID 01/10/22 01/27/22 History suspension methenamine hippurate 1 gram tablet 1 g PO BID #60 tab 01/17/22 01/27/22 Rx vancomycin 125 mg capsule 125 mg PO DIRECTED #21 cap 01/17/22 01/27/22 Rx ascorbic acid (vitamin C) 500 mg 500 mg FEEDING TUBE QAM 01/27/22 01/27/22 History tablet (Vitamin C) diphenhydramine HCl 25 mg tablet 25 - 50 mg PO DAILY PRN 01/27/22 01/27/22 History (Benadryl Allergy) fentanyl 25 mcg/hr transdermal 25 mcg TRANSDERMAL Q72H 01/27/22 01/27/22 History patch nitrofurantoin 100 mg PO BID 01/27/22 01/27/22 History monohydrate/macrocrystals 100 mg capsule Past Med/Surg History Medical History ALS (amyotrophic lateral sclerosis) Cancer left breast (2015) s/p left lumpectomy/XRT, no chemo Cervical stenosis of spinal canal Diarrhea GERD (gastroesophageal reflux disease) controlled, stable. Patient sleeps elevated HS. 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) "Abnormal left breast mammogram Status post stereotactic biopsy 11/14/2015 revealing DCIS grade 1 Estrogen receptor positive and progesterone receptor positive Status post needle localization lumpectomy 12/20/2015 Stage pTis pNX Status post completion of radiation therapy 03/01/2016 received 3850 cGy utilizing accelerated partial breast irradiation." On 03/14/16 11:36 Ese Cabrera wrote "Abnormal left breast mammogram Status post stereotactic biopsy 11/14/2015 revealing DCIS grade 1 Estrogen receptor positive and progesterone receptor positive Status post needle localization lumpectomy 12/20/2015 Stage pTis pNX Status post completion of radiation therapy 03/01/2016 received 3850 cGy utilizing accelerated partial breast irradiation." On 02/01/16 11:23 Ese Cabrera wrote "Abnormal left breast mammogram Status post stereotactic biopsy 11/14/2015 revealing DCIS grade 1 Estrogen receptor positive and progesterone receptor positive Status post needle localization lumpectomy 12/20/2015 Stage pTis pNX" Lab test negative for COVID-19 virus Nausea Osteoarthritis Palliative care encounter SOB (shortness of breath) Surgical History H/O foot surgery R ORIF History of appendectomy History of carpal tunnel release R/L History of colectomy D/T DIVERTICULITIS History of colonoscopy MULTIPLE History of D&C D&C, hysteroscopy: 10/24/17: LMA# 4 at [facility] History of esophagogastroduodenoscopy (EGD) History of lumpectomy of left breast 2015 History of tonsillectomy S/P percutaneous endoscopic gastrostomy (PEG) tube placement Family History Mother Breast cancer Social History Smoking Status: Never smoker Tobacco Type: Cigarettes Second Hand Exposure: No; Hx Alcohol Use: No Hx Substance Use: No Preferred Language: Haitian Communication Ability: Impaired Communication Ability Comment: pt mainly uses one or two word phrases 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 Physical Exam Physical Exam: GENERAL: Alert and oriented x3. NAD, on 2L NC. HEENT: No pallor, no icterus. Pupils equal, round and reactive to light. Oral mucosa moist. NECK: No JVD, no neck masses. HEART: S1 and S2 heard. Regular rate and rhythm. No murmur, no gallop. RESPIRATORY SYSTEM: Normal AP diameter. No accessory muscle use. No wheezing, no crackles, decreased breath sounds ABDOMEN: Soft, bowel sounds present, nontender, no distention. PEG tube in place. Port of entry healthy w/o signs of infection. CENTRAL NERVOUS SYSTEM: No facial droop. Speech is clear. Obeys simple commands. EXTREMITIES: No edema, no erythema seen. Results & Data Results & Data ([facility]) Vital Signs (Past 12 Hours) Vital Signs Temp Pulse Pulse Resp BP BP Pulse Ox 01/27/22 16:04 81 19 173/82 H 98 01/27/22 14:27 98 01/27/22 14:20 37.2 C 86 20 174/91 H 97 Code Status & VTE Plan VTE Prophylaxis Plan VTE Prophylaxis will be ordered: Yes
[2022-01-27 18:24] LABS: Potassium 4.4 mmol/L (3.5-5.1)
[2022-01-27] MEDS: TUBE FEEDING WATER FLUSH GT SCH (21:00)
[2022-01-27 21:03] LABS: Adenovirus F 40/41 PCR Not Detected (NotDetected); Astrovirus PCR Not Detected (NotDetected); Campylobacter PCR Not Detected (NotDetected); Cryptosporidium PCR Not Detected (NotDetected); Cyclospora cayetanensis PCR Not Detected (NotDetected); Entamoeba histolytica PCR Not Detected (NotDetected); Enteroaggregative E.coli(EAEC) Not Detected (NotDetected); Enteropathogenic E.coli (EPEC) Not Detected (NotDetected); Enterotoxigenic E.coli (ETEC) Not Detected (NotDetected); Giardia lamblia PCR Not Detected (NotDetected); Norovirus GI/GII PCR Not Detected (NotDetected); Plesiomonas shigelloides PCR Not Detected (NotDetected); Rotavirus A PCR Not Detected (NotDetected); Salmonella PCR Not Detected (NotDetected); Sapovirus PCR Not Detected (NotDetected); Shiga-like Toxin E.coli (STEC) Not Detected (NotDetected); Shigella/Enteroinvasive E.coli Not Detected (NotDetected); Vibrio cholerae PCR Not Detected (NotDetected); Vibrio species PCR Not Detected (NotDetected); Yersinia enterocolitica PCR Not Detected (NotDetected)
[2022-01-27] MEDS ORDERED: HYDROCORTISONE HC 2.5% CRM 30GM TUBE EXT PRN (21:31)
[2022-01-27] MEDS ORDERED: FLUTICASONE PROPIONATE NA SPR 16 GM BTL PRN (21:31)
[2022-01-27] MEDS ORDERED: MIRTAZAPINE TAB 15 MG TAB GT PRN (21:31)
[2022-01-27] MEDS ORDERED: LIDOCAINE 5% 1 PATCH TD PRN (21:31)
[2022-01-27] MEDS ORDERED: MENTHOL-ZINC OXIDE 360 APPLN/120 GM TUBE EXT PRN (21:31)
[2022-01-27] MEDS ORDERED: ALBUTEROL 0.083% NEBU SOLN 3 ML VIAL INH PRN (21:31)
[2022-01-27 21:45] LABS: Cdiff Antigen Positive; Cdiff Toxin A+B Negative Cdiff Toxin (Negative)
[2022-01-27] MEDS: FIBERSOURCE HN 1.2 CAL 1000 ML BAG GT SCH (22:47)
[2022-01-27] MEDS: LANSOPRAZOLE 30 MG SOLTAB PEG SCH (23:16)
[2022-01-27] MEDS: GLYCOPYRROLATE 1 MG TAB PO SCH (23:17)
[2022-01-27] MEDS: RILUZOLE 50 MG PEG SCH (23:17)
[2022-01-27] MEDS: GABAPENTIN 250 MG/5 ML 470 ML BTL PO SCH (23:18)
[2022-01-27] MEDS: SUCRALFATE 1 GM/10 ML UDC PEG SCH (23:19)
[2022-01-27] MEDS: fentaNYL 25 MCG/HR TDSY TD SCH (23:48)
[2022-01-27] MEDS ORDERED: diphenhydrAMINE HCL 25 MG/10 ML UDC PO PRN (23:48)
[2022-01-27] MEDS ORDERED: CHOLESTYRAMINE LIGHT 4 GM PKT PO PRN (23:53)
[2022-01-27] MEDS ORDERED: ONDANSETRON 4 MG OD TAB PO PRN (23:55)
[2022-01-27] MEDS ORDERED: CHOLESTYRAMINE LIGHT 4 GM PKT PEG PRN (23:57)
[2022-01-27] MEDS ORDERED: diphenhydrAMINE HCL 25 MG/10 ML UDC PEG PRN (23:58)
[2022-01-27] MEDS: CHECK fentaNYL PATCH PLACEMENT SCH (23:58)
[2022-01-28] MEDS ORDERED: VANCOMYCIN HCL 125 MG/2.5ML SOLN PO SCH
[2022-01-28] MEDS ORDERED: CHECK SCOPOLAMINE PATCH PLACEMENT SCH
[2022-01-28] MEDS ORDERED: guaiFENesin SUGAR FREE 200 MG/10 ML UDC PEG PRN (00:02)
[2022-01-28] MEDS: VANCOMYCIN HCL 125 MG/2.5ML SOLN PEG SCH ×5 (00:03→23:16)
[2022-01-28] MEDS ORDERED: HYOSCYAMINE SULFATE 0.125 MG TAB PO PRN (00:03)
[2022-01-28] MEDS ORDERED: CETIRIZINE HCL 10 MG TABLET PO PRN (00:27)
[2022-01-28] MEDS ORDERED: PROMETHAZINE HCL 12.5 MG in SODIUM CHLORIDE 0.9% 50 ML IV STA (00:49)
[2022-01-28] MEDS: TUBE FEEDING WATER FLUSH GT SCH ×6 (00:50→20:47)
[2022-01-28] MEDS: MEROPENEM 500 MG in SYRINGE 0 ML IV SCH ×5 (01:15→22:44)
[2022-01-28] MEDS: LEVOTHYROXINE SODIUM 112 MCG TABLET PO SCH (05:11)
--- NOTE | 2022-01-28 06:33 | Electrocardiogram Report ---
Test Reason : Blood Pressure : / mmHG Vent. Rate : 081 BPM Atrial Rate : 081 BPM P-R Int : 146 ms QRS Dur : 086 ms QT Int : 396 ms P-R-T Axes : 032 -32 032 degrees QTc Int : 460 ms Normal sinus rhythm Left axis deviation Abnormal ECG When compared with ECG of 10-JAN-2022 13:28, No significant change was found Confirmed by Eric Vaughan ([id number]) on 01/28/2022 6:33:00 AM Referred By: Devonte Sweeney Confirmed By:Eric Vaughan
[2022-01-28 07:03] LABS: Hematocrit (blood only) 35.2 % (37-47); Hemoglobin 11.2 g/dL (12.0-16.0); Mean Corpuscular Hemoglobin 28.1 pg (25-34); Mean Corpuscular Hgb Conc 31.8 g/dL (32-36); Mean Corpuscular Volume 88.2 fL (80-100); Mean Platelet Volume 10.8 fL (7.4-10.4); Platelet Count 363 K/uL (130-400); RDW Standard Deviation 42.8 fL (36.4-46.3); Red Blood Count 3.99 M/uL (4.2-5.4); White Blood Count 7.83 K/uL (4.8-10.8)
[2022-01-28 07:25] LABS: BUN Creatinine Ratio 64.6 (10-20); Calcium 9.9 mg/dl (8.5-10.1); Creatinine Clr Calc Pharmacy 77.7 ml/min; Est GFR (African American) 109.7 ml/min; Est GFR (Non-African American) 94.6 ml/min; Phosphorus 3.4 mg/dl (2.5-4.9)
[2022-01-28] MEDS: SUCRALFATE 1 GM/10 ML UDC PEG SCH ×4 (08:07→20:15)
[2022-01-28] MEDS: RILUZOLE 50 MG PEG SCH ×2 (08:07→20:15)
[2022-01-28] MEDS: SACCHAROMYCES BOULARDII 250 MG CAP PO SCH (08:08)
[2022-01-28] MEDS: LANSOPRAZOLE 30 MG SOLTAB PEG SCH ×2 (08:08→20:15)
[2022-01-28] MEDS: ASCORBIC ACID 500 MG TAB PEG SCH (08:08)
[2022-01-28] MEDS: LOSARTAN POTASSIUM 50 MG TAB PEG SCH (08:08)
[2022-01-28] MEDS: FAMOTIDINE SUSP 40 MG/5 ML UDP NG SCH (08:09)
[2022-01-28] MEDS: GLYCOPYRROLATE 1 MG TAB PO SCH ×3 (08:09→20:14)
[2022-01-28] MEDS: GABAPENTIN 250 MG/5 ML 470 ML BTL PO SCH ×3 (08:10→20:14)
[2022-01-28] MEDS: CHECK fentaNYL PATCH PLACEMENT SCH ×3 (08:10→23:17)
[2022-01-28] MEDS: ONDANSETRON INJ 2 MG/ML 2 ML VIAL IV PRN ×3 (08:25→22:45)
[2022-01-28] MEDS ORDERED: SCOPOLAMINE 1 MG TDSY TD SCH (09:00)
[2022-01-28] MEDS ORDERED: Nursing to Pharmacy Communication SCH (11:30)
[2022-01-28] MEDS: guaiFENesin SUGAR FREE 200 MG/10 ML UDC PEG SCH ×3 (12:13→20:15)
--- NOTE | 2022-01-28 15:22 | Emergency Department Note ---
Impression & Plan Acute UTI (urinary tract infection), ALS (amyotrophic lateral sclerosis), Drug (multiple) resistant infection ED Provider Note CHIEF COMPLAINT: Shortness of breath, UTI, indwelling Rodriguez catheter HISTORY OF PRESENT ILLNESS: This 76-year-old female patient presents to the emergency department with a history of ALS presents to the emergency department with complaints of a mucous plug. The patient states she is also suffering from a urinary tract infection was placed on an antibiotic yesterday. She does suffer from multiple antibiotic allergies/adverse reactions and was told that if she could not tolerate this antibiotic she would need IV therapy. The patient became very nauseated all day today with the antibiotic on board. She does not believe that she is able to tolerate the medication. is not able to tell me what the medication is at this time. Rodriguez catheter has not been changed since the UTI was diagnosed. Patient does not always wear oxygen at home, and is intermittent as needed. She denies any fevers, chills, chest pain or abdominal pain. She has not vomited. REVIEW OF SYSTEMS: A review of systems was performed with positives and pertinent negatives listed in the history of present illness. 10 systems were reviewed and are otherwise negative. ALLERGIES: see below MEDICATIONS: see below PMH: see below SOCIAL HISTORY: see below DDx: Infection, dehydration, metabolic abnormality, hypo/hyperglycemia, electrolyte disturbance, anemia, hypoxia, cardiac sources, intracerebral event, toxicologic, neurologic, as well as other pathologies. PHYSICAL EXAM: Vital signs reviewed. General: Chronically ill-appearing 76-year-old female, in no significant distress. HEENT: No scleral icterus, PERRLA, neck supple. Atraumatic. Cardiovascular: Regular rate and rhythm, no extra sounds. Pulmonary: Clear to auscultation bilaterally, normal work of breathing. Abdomen: Soft, nontender, nondistended, positive bowel sounds. Musculoskeletal: Atraumatic, no peripheral edema. : Chronic indwelling Rodriguez catheter, cloudy urine draining no gross blood. Neurologic: Patient awake alert and answers most questions appropriately but speech is difficult to interpret. Skin: Warm, dry, no rash EMERGENCY DEPARTMENT COURSE/MDM: This patient was evaluated and appeared to be in no significant distress. IV access was obtained and laboratory work was drawn. Patient was placed on cardiac rehab nurse and noted to be in a normal sinus rhythm. Patient's chest x-ray was performed and reveals chronic changes with a left small pleural effusion and consolidation which is similar to previous. Patient urine culture was reviewed and is susceptible to several antibiotics however due to the patient's allergy profile/antibiotic intolerances and her ALS, in addition to the antibiotic resistance pattern, she will require admission for IV antibiotic therapy. Patient and her were made aware of this plan and agreed. Order for Rodriguez catheter change was placed. The hospitalist service was consulted. MONITORING: An order for cardiac monitoring was placed and the patient is noted to be in a NSR at 79 beats per minute. RADIOLOGY: See below EKG: Normal sinus rhythm 81 bpm. Left axis deviation. Normal ST segments. Slightly prolonged QT interval at 460. No PVC, no PAC. No significant change from 04/12/2022. DISPOSITION: Admission Past Med/Surg History Medical History ALS (amyotrophic lateral sclerosis) Cancer left breast (2015) s/p left lumpectomy/XRT, no chemo Cervical stenosis of spinal canal Diarrhea GERD (gastroesophageal reflux disease) controlled, stable. Patient sleeps elevated HS. 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) "Abnormal left breast mammogram Status post stereotactic biopsy 11/14/2015 revealing DCIS grade 1 Estrogen receptor positive and progesterone receptor positive Status post needle localization lumpectomy 12/20/2015 Stage pTis pNX Status post completion of radiation therapy 03/01/2016 received 3850 cGy utilizing accelerated partial breast irradiation." On 03/14/16 11:36 Ese Cabrera wrote "Abnormal left breast mammogram Status post stereotactic biopsy 11/14/2015 revealing DCIS grade 1 Estrogen receptor positive and progesterone receptor positive Status post needle localization lumpectomy 12/20/2015 Stage pTis pNX Status post completion of radiation therapy 03/01/2016 received 3850 cGy utilizing accelerated partial breast irradiation." On 02/01/16 11:23 Ese Cabrera wrote "Abnormal left breast mammogram Status post stereotactic biopsy 11/14/2015 revealing DCIS grade 1 Estrogen receptor positive and progesterone receptor positive Status post needle localization lumpectomy 12/20/2015 Stage pTis pNX" Lab test negative for COVID-19 virus Nausea Osteoarthritis Palliative care encounter SOB (shortness of breath) Surgical History H/O foot surgery R ORIF History of appendectomy History of carpal tunnel release R/L History of colectomy D/T DIVERTICULITIS History of colonoscopy MULTIPLE History of D&C D&C, hysteroscopy: 10/24/17: LMA# 4 at [facility] History of esophagogastroduodenoscopy (EGD) History of lumpectomy of left breast 2015 History of tonsillectomy S/P percutaneous endoscopic gastrostomy (PEG) tube placement Family History Mother Breast cancer Social History Smoking Status: Never smoker Tobacco Type: Cigarettes Second Hand Exposure: No; Hx Alcohol Use: No Hx Substance Use: No Preferred Language: Senegalese Communication Ability: Impaired Communication Ability Comment: pt mainly uses one or two word phrases Recovery Unit Operator Required: No Beliefs That Will Affect Care: None marital status: Current Living Situation: Spouse and Family Current Living Situation Comment: and daughter Other Information That Helps Us Care for You: No Feels Safe at Home: Yes Safety Concerns: Feels Safe At This Time Assistive Devices: Oxygen - at Night and Walker Allergies Allergies Allergy/AdvReac Type Severity Reaction Status Date / Time Iodinated Contrast Media Allergy Severe dyspnea Verified 01/27/22 15:43 azithromycin Allergy Intermediate rash Verified 01/27/22 15:43 cefaclor Allergy Intermediate hives Verified 01/29/22 14:03 erythromycin base Allergy Intermediate hives Verified 01/27/22 15:43 levalbuterol Allergy Intermediate chest pain Verified 01/27/22 15:43 minocycline Allergy Intermediate rash Verified 01/27/22 15:43 nitrofurantoin Allergy Intermediate possible Verified 01/27/22 15:43 hives or dyspnea phenazopyridine Allergy Intermediate dyspnea Verified 01/27/22 15:43 Sulfa (Sulfonamide Allergy Intermediate hives Verified 01/27/22 15:43 Antibiotics) oxycodone [From OxyContin] Allergy Unknown Unverified 01/27/22 15:43 meropenem AdvReac Severe Hives Verified 01/29/22 14:04 metronidazole AdvReac Intermediate GI symptoms Verified 01/27/22 15:43 morphine AdvReac Intermediate vomiting Verified 01/27/22 15:43 levofloxacin AdvReac Mild abdominal Verified 01/27/22 15:43 pain albuterol [From Ventolin HFA] AdvReac Chest Pain Unverified 01/27/22 15:43 iodine AdvReac Anaphylaxis Unverified 01/27/22 15:43 tramadol AdvReac Confusion Unverified 01/27/22 15:43 Home Meds Home Medications Medication Instructions Recorded Confirmed losartan 50 mg tablet 100 mg FEEDING TUBE QAM 07/08/19 01/27/22 lidocaine 5 % topical patch 1 patch TOPICAL DAILY PRN 07/22/21 01/27/22 glycopyrrolate 2 mg tablet 2 mg FEEDING TUBE TID 11/22/21 01/27/22 hydroxyzine HCl 25 mg tablet 25 mg FEEDING TUBE TID PRN 11/22/21 01/27/22 levothyroxine 112 mcg tablet 112 mcg FEEDING TUBE DAILYBB 11/22/21 01/27/22 riluzole 50 mg tablet 50 mg FEEDING TUBE BID 11/22/21 01/27/22 albuterol sulfate 2.5 mg INHALATION Q4H PRN 12/16/21 01/27/22 dicyclomine 20 mg tablet 20 mg FEEDING TUBE Q6H PRN 12/16/21 01/27/22 lactobacillus combination no.4 3 0 mmu cells FEEDING TUBE HS 12/16/21 01/27/22 billion cell capsule (Probiotic) levocetirizine 5 mg tablet (Xyzal) 5 mg FEEDING TUBE DAILY PRN 12/16/21 01/27/22 menthol 0.44 %-zinc oxide 20.6 % 1 applic TOPICAL QID PRN 12/16/21 01/27/22 topical ointment (Calmoseptine) ondansetron HCl 4 mg tablet 4 mg FEEDING TUBE Q6H 12/16/21 01/27/22 scopolamine base 1 mg over 3 days 1 patch TRANSDERMAL Q3D 12/16/21 01/27/22 transdermal patch Guaifenesin 400mg/20ml 20 ml FEEDING TUBE Q4H PRN 01/10/22 01/27/22 Saccharomyces boulardii 250 mg 250 mg FEEDING TUBE QAM 01/10/22 01/27/22 capsule (Florastor) cholestyramine (with sugar) 4 gram 0.5 - 1 ea FEEDING TUBE BID PRN 01/10/22 01/27/22 powder for susp in a packet famotidine 40 mg/5 mL (8 mg/mL) 40 mg FEEDING TUBE QAM 01/10/22 01/27/22 oral suspension fluticasone propionate 50 2 spray INTRANASAL DAILY PRN 01/10/22 01/27/22 mcg/actuation nasal spray,suspension gabapentin 100 mg capsule 100 mg FEEDING TUBE TID 01/10/22 01/27/22 hydrocortisone 2.5 % topical cream 1 applic NC BID PRN 01/10/22 01/27/22 with perineal applicator hydromorphone 2 mg tablet 1 mg FEEDING TUBE Q4H PRN 01/10/22 01/27/22 (Dilaudid) hyoscyamine sulfate 0.125 mg 0.125 mg FEEDING TUBE DAILY PRN 01/10/22 01/27/22 sublingual tablet lorazepam 1 mg tablet 1 mg FEEDING TUBE QID PRN 01/10/22 01/27/22 mirtazapine 7.5 mg tablet 7.5 mg FEEDING TUBE HS PRN 01/10/22 01/27/22 nystatin 100,000 unit/mL oral 10 ml PO TID PRN 01/10/22 01/10/22 suspension simethicone 80 mg chewable tablet 80 mg FEEDING TUBE DAILY PRN 01/10/22 01/27/22 sucralfate 100 mg/mL oral 1 g PO QID 01/10/22 01/27/22 suspension ascorbic acid (vitamin C) 500 mg 500 mg FEEDING TUBE QAM 01/27/22 01/27/22 tablet (Vitamin C) diphenhydramine HCl 25 mg tablet 25 - 50 mg PO DAILY PRN 01/27/22 01/27/22 (Benadryl Allergy) fentanyl 25 mcg/hr transdermal 25 mcg TRANSDERMAL Q72H 01/27/22 01/27/22 patch nitrofurantoin 100 mg PO BID 01/27/22 01/27/22 monohydrate/macrocrystals 100 mg capsule Previous Rx's Medication Instructions Recorded lansoprazole 30 mg delayed 30 mg FEEDING TUBE BID #0 tab 12/28/21 release,disintegrating tablet methenamine hippurate 1 gram tablet 1 g PO BID #60 tab 01/17/22 vancomycin 125 mg capsule 125 mg PO DIRECTED #21 cap 01/17/22 Results & Data (ED) Vital Signs Vital Signs - 24 hr 01/27/22 16:04 Pulse Rate [Apical] 81 Respiratory Rate 19 Blood Pressure [Right Arm] 173/82 H Blood Pressure Mean [Right Arm] 112 Pulse Oximetry 98 Home Medications Current Medication List: was personally reviewed by me Laboratory Data Attestation: I reviewed the patient's lab results. Result diagrams: 01/28/22 06:33 01/31/22 09:01 Lab Results 01/27/22 01/27/22 01/27/22 Range/Units 15:22 15:22 16:24 WBC Cancelled RBC Cancelled Hgb Cancelled Hct Cancelled MCV Cancelled MCH Cancelled MCHC Cancelled RDW Std Deviation Cancelled RDW Coeff of Marcela Cancelled Plt Count Cancelled MPV Cancelled Immature Gran % (Auto) Cancelled Neut % (Auto) Cancelled Lymph % (Auto) Cancelled Leake % (Auto) Cancelled Eos % (Auto) Cancelled Baso % (Auto) Cancelled Neut # (Auto) Cancelled Lymph # (Auto) Cancelled Leake # (Auto) Cancelled Eos # (Auto) Cancelled Baso # (Auto) Cancelled Immature Gran # (Auto) Cancelled Absolute Nucleated RBC Cancelled Nucleated RBC % (auto) Cancelled Neutrophils % (Manual) Cancelled Band Neutrophils % Cancelled Lymphocytes % (Manual) Cancelled Prolymphocyte % Cancelled Reactive Lymphs % (Man) Cancelled Monocytes % (Manual) Cancelled Eosinophils % (Manual) Cancelled Basophils % (Manual) Cancelled Metamyelocytes % (Man) Cancelled Myelocytes % (Man) Cancelled Promyelocytes % (Man) Cancelled Blast Cells % (Manual) Cancelled Plasma Cell % (Manual) Cancelled Other Cells % Cancelled Nucleated RBC % Cancelled Neutrophils # (Manual) Cancelled Band Neutrophils # Cancelled Total Absolute Neuts Cancelled Lymphocytes # (Manual) Cancelled Prolymphocyte # Cancelled Reactive Lymphs # Cancelled Total Abs Lymphocytes Cancelled Monocytes # (Manual) Cancelled Eosinophils # (Manual) Cancelled Basophils # (Manual) Cancelled Metamyelocytes # (Man) Cancelled Myelocytes # (Manual) Cancelled Promyelocytes # (Man) Cancelled Blast Cells # (Man) Cancelled Plasma Cell # (Manual) Cancelled Other Cells # Cancelled Nucleated RBCs # (Man) Cancelled Hypersegmented Neuts Cancelled Hyposegmented Neuts Cancelled Hypogranular Neuts Cancelled Large Granular Lymphs Cancelled # Lrg Granular Lymphs Cancelled Hairy Cells Cancelled Smudge Cells Cancelled Toxic Granulation Cancelled Toxic Vacuolation Cancelled Dohle Bodies Cancelled Christin Rods Cancelled Platelet Estimate Cancelled Hypogranular Platelets Cancelled Clumped Platelets Cancelled Giant Platelets Cancelled Platelet Satelliting Cancelled RBC Morphology Cancelled Polychromasia Cancelled Hypochromasia Cancelled Poikilocytosis Cancelled Basophilic Stippling Cancelled Anisocytosis Cancelled Microcytosis Cancelled Macrocytosis Cancelled Spherocytes Cancelled Pappenheimer Bodies Cancelled Sickle Cells Cancelled Target Cells Cancelled Tear Drop Cells Cancelled Ovalocytes Cancelled Stomatocytes Cancelled Gant-Meta Bodies Cancelled Echinocytes Cancelled Acanthocytes (Spur) Cancelled Rouleaux Cancelled RBC Agglutinates Cancelled Schistocytes Cancelled RBC Morph Comment Cancelled Sezary Cell Cancelled Sodium 135 L (136-145) mmol/L Potassium (3.5-5.1) mmol/L Chloride 97 L (98-107) mmol/L Carbon Dioxide 30 (21-32) mmol/L Anion Gap 8 (3-11) BUN 31 H (6-23) mg/dl Creatinine 0.46 L (0.6-1.2) mg/dl Est Cr Clr Drug Dosing 82.8 ml/min Est GFR ( Amer) 111.2 ml/min Est GFR (Non-Af Amer) 96.0 ml/min BUN/Creatinine Ratio 67.4 H (10-20) Glucose 119 H (70-99(Fasting)) mg/dl Calcium 10.0 (8.5-10.1) mg/dl Magnesium 2.0 (1.7-2.4) mg/dl Total Bilirubin 0.5 (0.2-1.0) mg/dl AST (13-39) U/L ALT 29 (7-52) U/L Alkaline Phosphatase 98 (34-104) U/L Total Protein 6.4 (6.0-8.3) gm/dl Albumin 3.8 (3.4-5.0) gm/dl Globulin 2.6 (2.5-4.0) gm/dl Albumin/Globulin Ratio 1.5 (0.9-2) Urine Color Urine Appearance (Clear) Urine pH (4.5-7.5) Ur Specific [place] (1.000-1.030) Urine Protein (Negative) Urine Glucose (UA) (Negative) Urine Ketones (Negative) Urine Blood (Negative) Urine Nitrite (Negative) Urine Bilirubin (Negative) Urine Urobilinogen (Negative) Ur Leukocyte Esterase (Negative) Urine WBC (Auto) (0-5) /hpf Urine RBC (Auto) (0-4) /hpf U Hyaline Cast (Auto) (0-5) /lpf U Epithel Cells (Auto) (0-5) /lpf Urine Bacteria (Auto) (Negative) Urine Crystals Calcium Oxalate Crystal (None Prsent) Urine Yeast Stl C. cayetanensis PCR (NotDetected) Stool Rotavirus A PCR (NotDetected) Stl Adenov F 40/41 PCR (NotDetected) Stool Astrovirus (PCR) (NotDetected) Stool Campylobacter PCR (NotDetected) Stl C.difficile Tox A&B (Negative) Stl C. diff Tox A/B PCR (NotDetected) Stool Cryptosporidium PCR (NotDetected) Stl E.coli Shiga Tox PCR (NotDetected) Stl Enterotoxigenic E PCR (NotDetected) Stool EPEC (PCR) (NotDetected) Stool EAEC (PCR) (NotDetected) Stl E. histolytica PCR (NotDetected) Stool Giardia Lamblia PCR (NotDetected) Stool Salmonella PCR (NotDetected) Stool Sapovirus (PCR) (NotDetected) Stl P. shigelloides PCR (NotDetected) Stl Shigella/EIEC PCR (NotDetected) St Y.enterocolitica PCR (NotDetected) Stool Vibrio (PCR) (NotDetected) Stl Vibrio cholerae PCR (NotDetected) Stl Norovirus GI/GII PCR (NotDetected) SARS-CoV-2 (PCR) NEGATIVE (Negative) Influenza Type A (PCR) Negative (Neg) Influenza Type B (PCR) Negative (Neg) RSV (RT-PCR) Negative (Neg) 01/27/22 01/27/22 01/27/22 Range/Units 16:24 16:30 17:00 WBC 7.42 RBC 4.21 Hgb 11.6 L Hct 36.6 L MCV 86.9 MCH 27.6 MCHC 31.7 L RDW Std Deviation 41.9 RDW Coeff of Marcela 13.0 Plt Count 378 MPV 10.7 H Immature Gran % (Auto) 0.3 Neut % (Auto) 80.0 Lymph % (Auto) 12.4 Leake % (Auto) 5.9 Eos % (Auto) 1.1 Baso % (Auto) 0.3 Neut # (Auto) 5.94 Lymph # (Auto) 0.92 L Leake # (Auto) 0.44 Eos # (Auto) 0.08 Baso # (Auto) 0.02 Immature Gran # (Auto) 0.02 Absolute Nucleated RBC Nucleated RBC % (auto) Neutrophils % (Manual) Band Neutrophils % Lymphocytes % (Manual) Prolymphocyte % Reactive Lymphs % (Man) Monocytes % (Manual) Eosinophils % (Manual) Basophils % (Manual) Metamyelocytes % (Man) Myelocytes % (Man) Promyelocytes % (Man) Blast Cells % (Manual) Plasma Cell % (Manual) Other Cells % Nucleated RBC % Neutrophils # (Manual) Band Neutrophils # Total Absolute Neuts Lymphocytes # (Manual) Prolymphocyte # Reactive Lymphs # Total Abs Lymphocytes Monocytes # (Manual) Eosinophils # (Manual) Basophils # (Manual) Metamyelocytes # (Man) Myelocytes # (Manual) Promyelocytes # (Man) Blast Cells # (Man) Plasma Cell # (Manual) Other Cells # Nucleated RBCs # (Man) Hypersegmented Neuts Hyposegmented Neuts Hypogranular Neuts Large Granular Lymphs # Lrg Granular Lymphs Hairy Cells Smudge Cells Toxic Granulation Toxic Vacuolation Dohle Bodies Christin Rods Platelet Estimate Hypogranular Platelets Clumped Platelets Giant Platelets Platelet Satelliting RBC Morphology Polychromasia Hypochromasia Poikilocytosis Basophilic Stippling Anisocytosis Microcytosis Macrocytosis Spherocytes Pappenheimer Bodies Sickle Cells Target Cells Tear Drop Cells Ovalocytes Stomatocytes Gant-Meta Bodies Echinocytes Acanthocytes (Spur) Rouleaux RBC Agglutinates Schistocytes RBC Morph Comment Sezary Cell Sodium (136-145) mmol/L Potassium (3.5-5.1) mmol/L Chloride (98-107) mmol/L Carbon Dioxide (21-32) mmol/L Anion Gap (3-11) BUN (6-23) mg/dl Creatinine (0.6-1.2) mg/dl Est Cr Clr Drug Dosing ml/min Est GFR ( Amer) ml/min Est GFR (Non-Af Amer) ml/min BUN/Creatinine Ratio (10-20) Glucose (70-99(Fasting)) mg/dl Calcium (8.5-10.1) mg/dl Magnesium (1.7-2.4) mg/dl Total Bilirubin (0.2-1.0) mg/dl AST (13-39) U/L ALT (7-52) U/L Alkaline Phosphatase (34-104) U/L Total Protein (6.0-8.3) gm/dl Albumin (3.4-5.0) gm/dl Globulin (2.5-4.0) gm/dl Albumin/Globulin Ratio (0.9-2) Urine Color Dark Yellow Urine Appearance Cloudy A (Clear) Urine pH 7.5 (4.5-7.5) Ur Specific [place] 1.020 (1.000-1.030) Urine Protein 1+ H (Negative) Urine Glucose (UA) Negative (Negative) Urine Ketones Negative (Negative) Urine Blood Negative (Negative) Urine Nitrite Negative (Negative) Urine Bilirubin Negative (Negative) Urine Urobilinogen Negative (Negative) Ur Leukocyte Esterase 2+ H (Negative) Urine WBC (Auto) 10-30 H (0-5) /hpf Urine RBC (Auto) 0-4 (0-4) /hpf U Hyaline Cast (Auto) 10-30 H (0-5) /lpf U Epithel Cells (Auto) >30 H (0-5) /lpf Urine Bacteria (Auto) Negative (Negative) Urine Crystals Not Reportable Calcium Oxalate Crystal Present A (None Prsent) Urine Yeast Not Reportable Stl C. cayetanensis PCR Not Detected (NotDetected) Stool Rotavirus A PCR Not Detected (NotDetected) Stl Adenov F 40/41 PCR Not Detected (NotDetected) Stool Astrovirus (PCR) Not Detected (NotDetected) Stool Campylobacter PCR Not Detected (NotDetected) Stl C.difficile Tox A&B Negative Cdiff Toxin (Negative) Stl C. diff Tox A/B PCR C.diff Gene Detected A (NotDetected) Stool Cryptosporidium PCR Not Detected (NotDetected) Stl E.coli Shiga Tox PCR Not Detected (NotDetected) Stl Enterotoxigenic E PCR Not Detected (NotDetected) Stool EPEC (PCR) Not Detected (NotDetected) Stool EAEC (PCR) Not Detected (NotDetected) Stl E. histolytica PCR Not Detected (NotDetected) Stool Giardia Lamblia PCR Not Detected (NotDetected) Stool Salmonella PCR Not Detected (NotDetected) Stool Sapovirus (PCR) Not Detected (NotDetected) Stl P. shigelloides PCR Not Detected (NotDetected) Stl Shigella/EIEC PCR Not Detected (NotDetected) St Y.enterocolitica PCR Not Detected (NotDetected) Stool Vibrio (PCR) Not Detected (NotDetected) Stl Vibrio cholerae PCR Not Detected (NotDetected) Stl Norovirus GI/GII PCR Not Detected (NotDetected) SARS-CoV-2 (PCR) (Negative) Influenza Type A (PCR) (Neg) Influenza Type B (PCR) (Neg) RSV (RT-PCR) (Neg) 01/27/22 Range/Units 17:41 WBC RBC Hgb Hct MCV MCH MCHC RDW Std Deviation RDW Coeff of Marcela Plt Count MPV Immature Gran % (Auto) Neut % (Auto) Lymph % (Auto) Leake % (Auto) Eos % (Auto) Baso % (Auto) Neut # (Auto) Lymph # (Auto) Leake # (Auto) Eos # (Auto) Baso # (Auto) Immature Gran # (Auto) Absolute Nucleated RBC Nucleated RBC % (auto) Neutrophils % (Manual) Band Neutrophils % Lymphocytes % (Manual) Prolymphocyte % Reactive Lymphs % (Man) Monocytes % (Manual) Eosinophils % (Manual) Basophils % (Manual) Metamyelocytes % (Man) Myelocytes % (Man) Promyelocytes % (Man) Blast Cells % (Manual) Plasma Cell % (Manual) Other Cells % Nucleated RBC % Neutrophils # (Manual) Band Neutrophils # Total Absolute Neuts Lymphocytes # (Manual) Prolymphocyte # Reactive Lymphs # Total Abs Lymphocytes Monocytes # (Manual) Eosinophils # (Manual) Basophils # (Manual) Metamyelocytes # (Man) Myelocytes # (Manual) Promyelocytes # (Man) Blast Cells # (Man) Plasma Cell # (Manual) Other Cells # Nucleated RBCs # (Man) Hypersegmented Neuts Hyposegmented Neuts Hypogranular Neuts Large Granular Lymphs # Lrg Granular Lymphs Hairy Cells Smudge Cells Toxic Granulation Toxic Vacuolation Dohle Bodies Christin Rods Platelet Estimate Hypogranular Platelets Clumped Platelets Giant Platelets Platelet Satelliting RBC Morphology Polychromasia Hypochromasia Poikilocytosis Basophilic Stippling Anisocytosis Microcytosis Macrocytosis Spherocytes Pappenheimer Bodies Sickle Cells Target Cells Tear Drop Cells Ovalocytes Stomatocytes Gant-Meta Bodies Echinocytes Acanthocytes (Spur) Rouleaux RBC Agglutinates Schistocytes RBC Morph Comment Sezary Cell Sodium (136-145) mmol/L Potassium 4.4 (3.5-5.1) mmol/L Chloride (98-107) mmol/L Carbon Dioxide (21-32) mmol/L Anion Gap (3-11) BUN (6-23) mg/dl Creatinine (0.6-1.2) mg/dl Est Cr Clr Drug Dosing ml/min Est GFR ( Amer) ml/min Est GFR (Non-Af Amer) ml/min BUN/Creatinine Ratio (10-20) Glucose (70-99(Fasting)) mg/dl Calcium (8.5-10.1) mg/dl Magnesium (1.7-2.4) mg/dl Total Bilirubin (0.2-1.0) mg/dl AST 19 (13-39) U/L ALT (7-52) U/L Alkaline Phosphatase (34-104) U/L Total Protein (6.0-8.3) gm/dl Albumin (3.4-5.0) gm/dl Globulin (2.5-4.0) gm/dl Albumin/Globulin Ratio (0.9-2) Urine Color Urine Appearance (Clear) Urine pH (4.5-7.5) Ur Specific [place] (1.000-1.030) Urine Protein (Negative) Urine Glucose (UA) (Negative) Urine Ketones (Negative) Urine Blood (Negative) Urine Nitrite (Negative) Urine Bilirubin (Negative) Urine Urobilinogen (Negative) Ur Leukocyte Esterase (Negative) Urine WBC (Auto) (0-5) /hpf Urine RBC (Auto) (0-4) /hpf U Hyaline Cast (Auto) (0-5) /lpf U Epithel Cells (Auto) (0-5) /lpf Urine Bacteria (Auto) (Negative) Urine Crystals Calcium Oxalate Crystal (None Prsent) Urine Yeast Stl C. cayetanensis PCR (NotDetected) Stool Rotavirus A PCR (NotDetected) Stl Adenov F 40/41 PCR (NotDetected) Stool Astrovirus (PCR) (NotDetected) Stool Campylobacter PCR (NotDetected) Stl C.difficile Tox A&B (Negative) Stl C. diff Tox A/B PCR (NotDetected) Stool Cryptosporidium PCR (NotDetected) Stl E.coli Shiga Tox PCR (NotDetected) Stl Enterotoxigenic E PCR (NotDetected) Stool EPEC (PCR) (NotDetected) Stool EAEC (PCR) (NotDetected) Stl E. histolytica PCR (NotDetected) Stool Giardia Lamblia PCR (NotDetected) Stool Salmonella PCR (NotDetected) Stool Sapovirus (PCR) (NotDetected) Stl P. shigelloides PCR (NotDetected) Stl Shigella/EIEC PCR (NotDetected) St Y.enterocolitica PCR (NotDetected) Stool Vibrio (PCR) (NotDetected) Stl Vibrio cholerae PCR (NotDetected) Stl Norovirus GI/GII PCR (NotDetected) SARS-CoV-2 (PCR) (Negative) Influenza Type A (PCR) (Neg) Influenza Type B (PCR) (Neg) RSV (RT-PCR) (Neg) Administered Medications Albuterol (Albuterol 0.083% Nebu Soln 3 Ml Vial) 2.5 mg INH Q4H PRN; Protocol PRN Reason: Wheezing Stop: 02/26/22 21:30 Last Admin: 01/28/22 22:55 Dose: 2.5 mg Documented by: [id number] Ascorbic Acid (Ascorbic Acid 500 Mg Tab) 500 mg PEG QAM [id number] Stop: 02/27/22 08:59 Last Admin: 02/01/22 09:42 Dose: 500 mg Documented by: [id number] Admin: 01/31/22 09:50 Dose: 500 mg Documented by: [id number] Admin: 01/30/22 09:38 Dose: 500 mg Documented by: [id number] Admin: 01/29/22 10:28 Dose: 500 mg Documented by: [id number] Admin: 01/28/22 08:08 Dose: 500 mg Documented by: [id number] Dicyclomine HCl (Dicyclomine Hcl 20 Mg Tab) 20 mg PEG Q6H PRN PRN Reason: Diarrhea Stop: 02/26/22 21:30 Last Admin: 01/31/22 21:04 Dose: 20 mg Documented by: [id number] Enteral Nutritional Formula (Fibersource Hn 1.2 Kavon 1000 Ml Bag) 1,000 ml GT [facility] [place]; Protocol Stop: 02/26/22 20:29 Last Admin: 02/01/22 11:20 Dose: 1,000 ml Documented by: [id number] Admin: 01/31/22 09:51 Dose: 1,000 ml Documented by: [id number] Admin: 01/30/22 09:58 Dose: 1,000 ml Documented by: [id number] Admin: 01/28/22 22:48 Dose: 1,000 ml Documented by: [id number] Admin: 01/27/22 22:47 Dose: 1,000 ml Documented by: [id number] Famotidine (Famotidine Susp 40 Mg/5 Ml Udp) 40 mg NG QAM [facility] Stop: 02/27/22 08:59 Last Admin: 02/01/22 09:42 Dose: 40 mg Documented by: [id number] Admin: 01/31/22 09:49 Dose: 40 mg Documented by: [id number] Admin: 01/30/22 09:38 Dose: 40 mg Documented by: [id number] Admin: 01/29/22 10:29 Dose: 40 mg Documented by: [id number] Admin: 01/28/22 08:09 Dose: 40 mg Documented by: [id number] Fentanyl (Fentanyl 25 Mcg/Hr Tdsy) 25 mcg TD Q3D@2100 DAIJA Stop: 02/10/22 22:59 Last Admin: 01/30/22 19:54 Dose: 25 mcg Documented by: [id number] Admin: 01/27/22 23:48 Dose: 25 mcg Documented by: [id number] Gabapentin (Gabapentin 250 Mg/5 Ml 470 Ml Btl) 100 mg PO TID DAIJA Stop: 02/26/22 21:30 Last Admin: 02/01/22 15:29 Dose: 100 mg Documented by: [id number] Admin: 02/01/22 09:42 Dose: 100 mg Documented by: [id number] Admin: 01/31/22 21:07 Dose: 100 mg Documented by: [id number] Admin: 01/31/22 13:46 Dose: 100 mg Documented by: [id number] Admin: 01/31/22 09:49 Dose: 100 mg Documented by: [id number] Admin: 01/30/22 19:56 Dose: 100 mg Documented by: [id number] Admin: 01/30/22 13:34 Dose: 100 mg Documented by: [id number] Admin: 01/30/22 09:39 Dose: 100 mg Documented by: [id number] Admin: 01/29/22 19:50 Dose: 100 mg Documented by: [id number] Admin: 01/29/22 13:40 Dose: 100 mg Documented by: [id number] Admin: 01/29/22 10:40 Dose: 100 mg Documented by: [id number] Admin: 01/28/22 20:14 Dose: 100 mg Documented by: [id number] Admin: 01/28/22 13:40 Dose: 100 mg Documented by: [id number] Admin: 01/28/22 08:10 Dose: 100 mg Documented by: [id number] Admin: 01/27/22 23:18 Dose: Not Given Documented by: [id number] Glycopyrrolate (Glycopyrrolate 1 Mg Tab) 1 mg PO TID PRN PRN Reason: increased secretions Stop: 02/26/22 21:30 Last Admin: 02/01/22 09:42 Dose: 1 mg Documented by: [id number] Admin: 02/01/22 01:10 Dose: 1 mg Documented by: [id number] Admin: 01/31/22 16:42 Dose: 1 mg Documented by: [id number] Admin: 01/31/22 09:50 Dose: 1 mg Documented by: [id number] Admin: 01/30/22 22:10 Dose: 1 mg Documented by: [id number] Admin: 01/30/22 16:58 Dose: 1 mg Documented by: [id number] Admin: 01/30/22 11:35 Dose: 1 mg Documented by: [id number] Admin: 01/29/22 23:13 Dose: 1 mg Documented by: [id number] Guaifenesin (Guaifenesin Sugar Free 200 Mg/10 Ml Udc) 400 mg PEG 0900,1300,1700,2100 DAIJA Stop: 02/27/22 12:59 Last Admin: 02/01/22 12:59 Dose: 400 mg Documented by: [id number] Admin: 02/01/22 09:41 Dose: 400 mg Documented by: [id number] Admin: 01/31/22 21:05 Dose: 400 mg Documented by: [id number] Admin: 01/31/22 16:42 Dose: 400 mg Documented by: [id number] Admin: 01/31/22 12:41 Dose: 400 mg Documented by: [id number] Admin: 01/31/22 09:49 Dose: 400 mg Documented by: [id number] Admin: 01/30/22 19:56 Dose: 400 mg Documented by: [id number] Admin: 01/30/22 16:58 Dose: 400 mg Documented by: [id number] Admin: 01/30/22 13:34 Dose: 400 mg Documented by: [id number] Admin: 01/30/22 09:40 Dose: 400 mg Documented by: [id number] Admin: 01/29/22 19:48 Dose: 400 mg Documented by: [id number] Admin: 01/29/22 17:36 Dose: 400 mg Documented by: [id number] Admin: 01/29/22 13:40 Dose: 400 mg Documented by: [id number] Admin: 01/29/22 10:30 Dose: 400 mg Documented by: [id number] Admin: 01/28/22 20:15 Dose: 400 mg Documented by: [id number] Admin: 01/28/22 17:23 Dose: 400 mg Documented by: [id number] Admin: 01/28/22 12:13 Dose: 400 mg Documented by: [id number] Hydromorphone HCl (Hydromorphone Hcl 2 Mg Tab) 1 mg PO Q4H PRN PRN Reason: pain Stop: 02/10/22 21:30 Last Admin: 01/29/22 10:26 Dose: 1 mg Documented by: [id number] Admin: 01/28/22 23:16 Dose: 1 mg Documented by: [id number] Hydromorphone HCl (Hydromorphone Inj 1 Mg/Ml Syringe) 1 mg IV Q6H PRN PRN Reason: Severe Pain Stop: 02/12/22 13:35 Last Admin: 01/31/22 21:25 Dose: 1 mg Documented by: [id number] Admin: 01/29/22 14:46 Dose: 1 mg Documented by: [id number] Hydroxyzine HCl (Hydroxyzine Hcl 25 Mg Tab) 25 mg PEG TID PRN PRN Reason: Itching Stop: 02/26/22 21:30 Last Admin: 02/01/22 09:47 Dose: 25 mg Documented by: [id number] Admin: 01/31/22 16:42 Dose: 25 mg Documented by: [id number] Admin: 01/31/22 09:49 Dose: 25 mg Documented by: [id number] Admin: 01/30/22 22:10 Dose: 25 mg Documented by: [id number] Admin: 01/30/22 17:00 Dose: 25 mg Documented by: [id number] Admin: 01/30/22 09:38 Dose: 25 mg Documented by: [id number] Admin: 01/29/22 23:13 Dose: 25 mg Documented by: [id number] Admin: 01/28/22 22:45 Dose: 25 mg Documented by: [id number] Lansoprazole (Lansoprazole 30 Mg Soltab) 30 mg PEG BID DAIJA Stop: 02/26/22 21:30 Last Admin: 02/01/22 09:41 Dose: 30 mg Documented by: [id number] Admin: 01/31/22 21:02 Dose: 30 mg Documented by: [id number] Admin: 01/31/22 09:50 Dose: 30 mg Documented by: [id number] Admin: 01/30/22 19:57 Dose: 30 mg Documented by: [id number] Admin: 01/30/22 09:40 Dose: 30 mg Documented by: [id number] Admin: 01/29/22 17:36 Dose: 30 mg Documented by: [id number] Admin: 01/29/22 13:40 Dose: 30 mg Documented by: [id number] Admin: 01/28/22 20:15 Dose: 30 mg Documented by: [id number] Admin: 01/28/22 08:08 Dose: 30 mg Documented by: [id number] Admin: 01/27/22 23:16 Dose: Not Given Documented by: [id number] Levothyroxine Sodium (Levothyroxine Sodium 112 Mcg Tablet) 112 mcg PO DAILYBB DAIJA Stop: 02/27/22 06:29 Last Admin: 02/01/22 05:50 Dose: 112 mcg Documented by: [id number] Admin: 01/31/22 05:39 Dose: 112 mcg Documented by: [id number] Admin: 01/30/22 06:01 Dose: 112 mcg Documented by: [id number] Admin: 01/29/22 06:02 Dose: 112 mcg Documented by: [id number] Admin: 01/28/22 05:11 Dose: 112 mcg Documented by: [id number] Lorazepam (Lorazepam 1 Mg Tab) 1 mg PEG QID PRN PRN Reason: Anxiety Stop: 02/26/22 21:30 Last Admin: 01/31/22 12:42 Dose: 1 mg Documented by: [id number] Losartan Potassium (Losartan Potassium 50 Mg Tab) 100 mg PEG QAM [facility] Stop: 02/27/22 08:59 Last Admin: 02/01/22 09:42 Dose: 100 mg Documented by: [id number] Admin: 01/31/22 09:49 Dose: 100 mg Documented by: [id number] Admin: 01/30/22 09:40 Dose: 100 mg Documented by: [id number] Admin: 01/29/22 10:31 Dose: 100 mg Documented by: [id number] Admin: 01/28/22 08:08 Dose: 100 mg Documented by: [id number] Miscellaneous (Fentanyl Patch Remove & Waste) 1 ea N/A Q3D@2059 [facility] Stop: 02/26/22 22:58 Last Admin: 01/30/22 21:18 Dose: 1 ea Documented by: [id number] Cosigned by: [id number] Admin: 01/27/22 23:48 Dose: 1 ea Documented by: [id number] Cosigned by: [id number] Miscellaneous (Check Fentanyl Patch Placement) 1 ea N/A QS [facility] Stop: 02/27/22 00:00 Last Admin: 02/01/22 15:29 Dose: 1 ea Documented by: [id number] Admin: 02/01/22 08:21 Dose: 1 ea Documented by: [id number] Admin: 02/01/22 01:09 Dose: 1 ea Documented by: [id number] Admin: 01/31/22 16:42 Dose: 1 ea Documented by: [id number] Admin: 01/31/22 09:44 Dose: 1 ea Documented by: [id number] Admin: 01/31/22 00:11 Dose: 1 ea Documented by: [id number] Admin: 01/30/22 16:31 Dose: 1 ea Documented by: [id number] Admin: 01/30/22 09:36 Dose: 1 ea Documented by: [id number] Admin: 01/29/22 23:18 Dose: 1 ea Documented by: [id number] Admin: 01/29/22 15:22 Dose: 1 ea Documented by: [id number] Admin: 01/29/22 09:11 Dose: 1 ea Documented by: [id number] Admin: 01/28/22 23:17 Dose: 1 ea Documented by: [id number] Admin: 01/28/22 17:04 Dose: 1 ea Documented by: [id number] Admin: 01/28/22 08:10 Dose: 1 ea Documented by: [id number] Admin: 01/27/22 23:58 Dose: 1 ea Documented by: [id number] Miscellaneous (Remove Lidoderm Patch) 1 ea N/A DAILY@2100 DAIJA Stop: 02/26/22 21:30 Last Admin: 01/31/22 21:17 Dose: 1 ea Documented by: [id number] Admin: 01/30/22 19:59 Dose: Not Given Documented by: [id number] Admin: 01/29/22 19:51 Dose: Not Given Documented by: [id number] Admin: 01/28/22 20:47 Dose: Not Given Documented by: [id number] Admin: 01/27/22 23:18 Dose: Not Given Documented by: [id number] Miscellaneous (Check Scopolamine Patch Placement) 1 ea N/A QS [facility] Stop: 02/02/22 05:59 Last Admin: 02/01/22 15:29 Dose: Not Given Documented by: [id number] Admin: 02/01/22 08:21 Dose: 1 ea Documented by: [id number] Admin: 02/01/22 01:09 Dose: 1 ea Documented by: [id number] Admin: 01/31/22 16:41 Dose: 1 ea Documented by: [id number] Admin: 01/31/22 09:44 Dose: 1 ea Documented by: [id number] Admin: 01/31/22 00:11 Dose: 1 ea Documented by: [id number] Admin: 01/30/22 18:51 Dose: Not Given Documented by: [id number] Riluzole 50 Mg - (Patient's Own Med) 1 ea PEG BID DAIJA Stop: 02/26/22 21:30 Last Admin: 02/01/22 09:42 Dose: 50 mg Documented by: [id number] Admin: 01/31/22 20:59 Dose: 50 mg Documented by: [id number] Admin: 01/31/22 09:50 Dose: 50 mg Documented by: [id number] Admin: 01/30/22 19:58 Dose: 50 mg Documented by: [id number] Admin: 01/30/22 09:41 Dose: 50 mg Documented by: [id number] Admin: 01/29/22 19:47 Dose: 50 mg Documented by: [id number] Admin: 01/29/22 10:32 Dose: 50 mg Documented by: [id number] Admin: 01/28/22 20:15 Dose: 50 mg Documented by: [id number] Admin: 01/28/22 08:07 Dose: 50 mg Documented by: [id number] Admin: 01/27/22 23:17 Dose: Not Given Documented by: [id number] Ondansetron HCl (Ondansetron Inj 2 Mg/Ml 2 Ml Vial) 4 mg IV Q6H PRN PRN Reason: Nausea Stop: 02/26/22 17:53 Last Admin: 02/01/22 15:47 Dose: 4 mg Documented by: [id number] Admin: 01/30/22 19:59 Dose: 4 mg Documented by: [id number] Admin: 01/30/22 09:37 Dose: 4 mg Documented by: [id number] Admin: 01/29/22 22:29 Dose: 4 mg Documented by: [id number] Admin: 01/29/22 09:11 Dose: 4 mg Documented by: [id number] Admin: 01/28/22 22:45 Dose: 4 mg Documented by: [id number] Admin: 01/28/22 17:30 Dose: 4 mg Documented by: [id number] Admin: 01/28/22 08:25 Dose: 4 mg Documented by: [id number] Admin: 01/27/22 23:08 Dose: 4 mg Documented by: [id number] Admin: 01/27/22 18:13 Dose: 4 mg Documented by: [id number] Ondansetron HCl (Ondansetron 4 Mg Od Tab) 4 mg PEG Q6H PRN PRN Reason: Nausea And Vomiting Stop: 02/26/22 23:56 Last Admin: 01/31/22 16:42 Dose: 4 mg Documented by: [id number] Admin: 01/31/22 09:49 Dose: 4 mg Documented by: [id number] Saccharomyces Boulardii (Saccharomyces Boulardii 250 Mg Cap) 250 mg PO QAM [facility] Stop: 02/27/22 08:59 Last Admin: 02/01/22 09:42 Dose: 250 mg Documented by: [id number] Admin: 01/31/22 09:50 Dose: 250 mg Documented by: [id number] Admin: 01/30/22 09:41 Dose: 250 mg Documented by: [id number] Admin: 01/29/22 10:33 Dose: 250 mg Documented by: [id number] Admin: 01/28/22 08:08 Dose: 250 mg Documented by: [id number] Simethicone (Simethicone 80 Mg Chew) 80 mg PO DAILY PRN PRN Reason: excessive gas Stop: 02/26/22 21:30 Last Admin: 01/31/22 09:50 Dose: 80 mg Documented by: [id number] Admin: 01/30/22 11:35 Dose: 80 mg Documented by: [id number] Admin: 01/29/22 19:49 Dose: 80 mg Documented by: [id number] Sterile Water (Tube Feeding Water Flush) 100 ml GT Q4H [facility] Stop: 02/26/22 20:44 Last Admin: 02/01/22 15:29 Dose: 100 ml Documented by: [id number] Admin: 02/01/22 12:58 Dose: 100 ml Documented by: [id number] Admin: 02/01/22 08:21 Dose: 100 ml Documented by: [id number] Admin: 02/01/22 04:43 Dose: 100 ml Documented by: [id number] Admin: 02/01/22 01:10 Dose: 100 ml Documented by: [id number] Admin: 01/31/22 21:07 Dose: 100 ml Documented by: [id number] Admin: 01/31/22 16:42 Dose: 100 ml Documented by: [id number] Admin: 01/31/22 12:41 Dose: 100 ml Documented by: [id number] Admin: 01/31/22 09:44 Dose: 100 ml Documented by: [id number] Admin: 01/31/22 05:39 Dose: 100 ml Documented by: [id number] Admin: 01/31/22 00:12 Dose: 100 ml Documented by: [id number] Admin: 01/30/22 20:18 Dose: 100 ml Documented by: [id number] Admin: 01/30/22 16:31 Dose: 100 ml Documented by: [id number] Admin: 01/30/22 13:35 Dose: 100 ml Documented by: [id number] Admin: 01/30/22 09:36 Dose: 100 ml Documented by: [id number] Admin: 01/30/22 05:58 Dose: 100 ml Documented by: [id number] Admin: 01/29/22 23:47 Dose: 100 ml Documented by: [id number] Admin: 01/29/22 19:57 Dose: 100 ml Documented by: [id number] Admin: 01/29/22 17:57 Dose: 100 ml Documented by: [id number] Admin: 01/29/22 13:41 Dose: 100 ml Documented by: [id number] Admin: 01/29/22 10:41 Dose: 100 ml Documented by: [id number] Admin: 01/29/22 04:54 Dose: 100 ml Documented by: [id number] Admin: 01/29/22 01:07 Dose: 100 ml Documented by: [id number] Admin: 01/28/22 20:47 Dose: 100 ml Documented by: [id number] Admin: 01/28/22 17:04 Dose: 100 ml Documented by: [id number] Admin: 01/28/22 12:15 Dose: 100 ml Documented by: [id number] Admin: 01/28/22 08:10 Dose: 100 ml Documented by: [id number] Admin: 01/28/22 04:48 Dose: 100 ml Documented by: [id number] Admin: 01/28/22 00:50 Dose: 100 ml Documented by: [id number] Admin: 01/27/22 21:00 Dose: 100 ml Documented by: [id number] Sucralfate (Sucralfate 1 Gm/10 Ml Udc) 1 gm PEG QID [facility] Stop: 02/26/22 21:30 Last Admin: 02/01/22 12:59 Dose: 1 gm Documented by: [id number] Admin: 02/01/22 09:41 Dose: 1 gm Documented by: [id number] Admin: 01/31/22 21:06 Dose: 1 gm Documented by: [id number] Admin: 01/31/22 16:42 Dose: 1 gm Documented by: [id number] Admin: 01/31/22 12:42 Dose: 1 gm Documented by: [id number] Admin: 01/31/22 09:49 Dose: 1 gm Documented by: [id number] Admin: 01/30/22 19:59 Dose: 1 gm Documented by: [id number] Admin: 01/30/22 16:58 Dose: 1 gm Documented by: [id number] Admin: 01/30/22 13:34 Dose: 1 gm Documented by: [id number] Admin: 01/30/22 09:42 Dose: 1 gm Documented by: [id number] Admin: 01/29/22 19:48 Dose: 1 gm Documented by: [id number] Admin: 01/29/22 17:36 Dose: 1 gm Documented by: [id number] Admin: 01/29/22 13:41 Dose: 1 gm Documented by: [id number] Admin: 01/29/22 10:41 Dose: 1 gm Documented by: [id number] Admin: 01/28/22 20:15 Dose: 1 gm Documented by: [id number] Admin: 01/28/22 17:23 Dose: 1 gm Documented by: [id number] Admin: 01/28/22 12:13 Dose: 1 gm Documented by: [id number] Admin: 01/28/22 08:07 Dose: 1 gm Documented by: [id number] Admin: 01/27/22 23:19 Dose: Not Given Documented by: [id number] Vancomycin HCl (Vancomycin Hcl 125 Mg/2.5ml Soln) 125 mg PEG Q6 [facility] Stop: 02/07/22 00:00 Last Admin: 02/01/22 12:58 Dose: 125 mg Documented by: [id number] Admin: 02/01/22 05:50 Dose: 125 mg Documented by: [id number] Admin: 02/01/22 01:10 Dose: 125 mg Documented by: [id number] Admin: 01/31/22 18:08 Dose: 125 mg Documented by: [id number] Admin: 01/31/22 12:41 Dose: 125 mg Documented by: [id number] Admin: 01/31/22 05:39 Dose: 125 mg Documented by: [id number] Admin: 01/31/22 00:11 Dose: 125 mg Documented by: [id number] Admin: 01/30/22 16:58 Dose: 125 mg Documented by: [id number] Admin: 01/30/22 13:34 Dose: 125 mg Documented by: [id number] Admin: 01/30/22 05:58 Dose: 125 mg Documented by: [id number] Admin: 01/29/22 23:13 Dose: 125 mg Documented by: [id number] Admin: 01/29/22 17:36 Dose: 125 mg Documented by: [id number] Admin: 01/29/22 13:41 Dose: 125 mg Documented by: [id number] Admin: 01/29/22 06:03 Dose: 125 mg Documented by: [id number] Admin: 01/28/22 23:16 Dose: 125 mg Documented by: [id number] Admin: 01/28/22 17:24 Dose: 125 mg Documented by: [id number] Admin: 01/28/22 12:14 Dose: 125 mg Documented by: [id number] Admin: 01/28/22 05:11 Dose: 125 mg Documented by: [id number] Admin: 01/28/22 00:03 Dose: Not Given Documented by: [id number] Discontinued Medications Diphenhydramine HCl (Diphenhydramine Capsule 25 Mg Cap) 25 mg PO NOW ONE Stop: 01/29/22 00:09 Last Admin: 01/29/22 00:57 Dose: 25 mg Documented by: [id number] Glycopyrrolate (Glycopyrrolate 1 Mg Tab) 2 mg PO TID DAIJA Stop: 02/26/22 21:30 Last Admin: 01/29/22 10:35 Dose: 2 mg Documented by: [id number] Admin: 01/28/22 20:14 Dose: 2 mg Documented by: [id number] Admin: 01/28/22 13:40 Dose: 2 mg Documented by: [id number] Admin: 01/28/22 08:09 Dose: 2 mg Documented by: [id number] Admin: 01/27/22 23:17 Dose: Not Given Documented by: [id number] Guaifenesin (Guaifenesin 600 Mg Tabcr) 600 mg PO NOW STA Stop: 01/28/22 21:10 Last Admin: 01/28/22 21:43 Dose: Not Given Documented by: [id number] Meropenem 500 mg/ Syringe 10 mls @ 2 mls/min IV NOW STA; Protocol Stop: 01/27/22 17:01 Last Admin: 01/27/22 18:12 Dose: 2 mls/min Documented by: [id number] Meropenem 500 mg/ Syringe 10 mls @ 2 mls/min IV Q6H [facility]IJA; Protocol Stop: 02/07/22 00:00 Last Admin: 01/28/22 22:44 Dose: 2 mls/min Documented by: [id number] Admin: 01/28/22 17:24 Dose: 2 mls/min Documented by: [id number] Admin: 01/28/22 12:21 Dose: 2 mls/min Documented by: [id number] Admin: 01/28/22 06:26 Dose: 2 mls/min Documented by: [id number] Admin: 01/28/22 01:15 Dose: 2 mls/min Documented by: [id number] Promethazine HCl 12.5 mg/ (Sodium Chloride) 50.5 mls @ 202 mls/hr IV NOW STA Stop: 01/28/22 01:03 Last Infusion: 01/28/22 01:36 Dose: 0 mls/hr Documented by: [id number] Admin: 01/28/22 01:15 Dose: 202 mls/hr Documented by: [id number] Cefepime HCl 2,000 mg/ Syringe 20 mls @ 5 mls/min IV Q12 DAIJA; Protocol Stop: 02/08/22 14:29 Last Admin: 02/01/22 09:42 Dose: 5 mls/min Documented by: [id number] Admin: 01/31/22 21:11 Dose: 5 mls/min Documented by: [id number] Admin: 01/31/22 09:49 Dose: 5 mls/min Documented by: [id number] Admin: 01/30/22 20:19 Dose: 5 mls/min Documented by: [id number] Admin: 01/30/22 09:42 Dose: 5 mls/min Documented by: [id number] Admin: 01/29/22 22:29 Dose: 5 mls/min Documented by: [id number] Admin: 01/29/22 15:15 Dose: 5 mls/min Documented by: [id number] Ondansetron HCl (Ondansetron Inj 2 Mg/Ml 2 Ml Vial) Confirm Administered Dose 4 mg .ROUTE .STK-MED ONE Stop: 01/27/22 18:07 Last Admin: 01/27/22 18:13 Dose: Not Given Documented by: [id number] Scopolamine (Scopolamine 1 Mg Tdsy) 1 mg TD Q72H [facility] Stop: 03/01/22 19:59 Last Admin: 01/30/22 20:20 Dose: 1 mg Documented by: [id number] Vancomycin HCl (Vancomycin Hcl 125 Mg/2.5ml Soln) 125 mg PO Q6 [facility] Stop: 02/07/22 00:00 Last Admin: 01/27/22 23:59 Dose: Not Given Documented by: [id number] Imaging Data Radiologist's Impression: Chest X-Ray 01/27/22 14:27 SINGLE VIEW CHEST CLINICAL HISTORY: Dyspnea. FINDINGS: An AP, portable, upright chest radiograph is compared to study dated 01/10/2022. The heart is mildly enlarged. The pulmonary vasculature is noncongested. Chronic interstitial thickening is similar to previous. There is a small left pleural effusion with associated left basilar consolidation. The lungs and pleural spaces are otherwise clear. No pneumothorax is seen. The skeletal structures are osteopenic. The bony thorax is grossly intact. Degenerative change is seen throughout the spine. Fusion hardware is noted in the lower cervical spine. Cholecystectomy clips are seen in the right upper quadrant. IMPRESSION: 1. Mild cardiomegaly without radiographic evidence of congestive failure. 2. A small left pleural effusion with left basilar consolidation is similar to previous ACT 112: Negative or not required by law. Electronically signed by: Jeremiah Estrella M.D. 01/27/2022 4:51 PM Presents to Blood Pressure Blood Pressure Findings: Normal blood pressure Discharge Plan Visit Data Chief Complaint: Shortness of Breath/Dyspnea Stated Complaint: SOB, pt choked on phlem ball ED Provider: Daphne Thomas Discharge Problem: Acute UTI (urinary tract infection), ALS (amyotrophic lateral sclerosis), Drug (multiple) resistant infection Patient Disposition: Admitted As Inpatient Discharge Instructions Interventions: ED Discharge Assessment Last Done: 01/27/22 22:10
--- NOTE | 2022-01-28 17:37 | Hospitalist Progress Note ---
Date of Service January 28, 2022 Assessment & Plan (1) Complicated UTI (urinary tract infection): Plan: #. CAUTI Patient was tested for UTI a week ago for increasing belly pain and being delirious. Patient has indwelling catheter. Patient was started on nitrofurantoin [documented allergy, but has used earlier this month] a day prior to arrival. Patient comes in with worsening nausea and feeling sick because of nitrofurantoin. Patient admitted for IV antibiotic. Urine analysis suggestive of UTI, admitting urine culture follow-up Patient started on meropenem 01/27 in the ED, continue with the same. #. Recent diagnosis of C diff currently under vanc po c/w home vanc, to be completed january 28 admitting c diff test negative for c diff toxin. #. Other chronic medical conditions: ALS, PEG tube feeding ALS care including suction, anticholinergics, riluzole. Dietitian consult for PEG tube feeding. #. DVT prophylaxis: Heparin subcu #. Okay with CPR but no invasive ventilation per . Dispo: High risk for readmission. Due to poor prognosis, involving hospice might be a better idea. Has been communicated to the patient and her family in the past. Will follow. Admission and Anticipated Discharge Date Admission Date: January 27, 2022 Subjective Patient seen and examined at bedside as a follow-up of complicated UTI needing IV antibiotics and progressive ALS history. Patient was lying in bed, on room air, NAD. Per RN, patient has small loose bowel movement in the morning. Patient has tube feed. Patient complains of belly pain which seems to be at her baseline. Patient denies headache. No new acute events overnight. Patient made aware that she can ask for pain medication if her pain increases. Physical Exam Physical Exam: GENERAL: Alert and oriented x3. NAD, on RA. HEENT: No pallor, no icterus. Pupils equal, round and reactive to light. Oral mucosa moist. NECK: No JVD, no neck masses. HEART: S1 and S2 heard. Regular rate and rhythm. No murmur, no gallop. RESPIRATORY SYSTEM: Normal AP diameter. No accessory muscle use. No wheezing, no crackles, decreased breath sounds ABDOMEN: Soft, bowel sounds present, nontender, no distention. PEG tube in place. Port of entry healthy w/o signs of infection. CENTRAL NERVOUS SYSTEM: No facial droop. Speech is clear. Obeys simple commands. EXTREMITIES: No edema, no erythema seen. Results & Data Results & Data ([facility]) Vital Signs (Past 12 Hours) Vital Signs Temp Pulse Resp BP Pulse Ox 01/28/22 07:53 36.7 C 78 16 126/75 98
[2022-01-28] MEDS ORDERED: guaiFENesin 600 MG TABCR PO STA (21:09)
[2022-01-28] MEDS: hydrOXYzine HCl 25 MG TAB PEG PRN (22:45)
[2022-01-28] MEDS: FIBERSOURCE HN 1.2 CAL 1000 ML BAG GT SCH (22:48)
[2022-01-28] MEDS: HYDROmorphone HCL 2 MG TAB PO PRN (23:16)
[2022-01-29] MEDS ORDERED: diphenhydrAMINE Capsule 25 MG CAP PO ONE (00:08)
[2022-01-29] MEDS: TUBE FEEDING WATER FLUSH GT SCH ×7 (01:07→23:47)
[2022-01-29] MEDS: LEVOTHYROXINE SODIUM 112 MCG TABLET PO SCH (06:02)
[2022-01-29] MEDS: VANCOMYCIN HCL 125 MG/2.5ML SOLN PEG SCH ×4 (06:03→23:13)
[2022-01-29] MEDS ORDERED: guaiFENesin 600 MG TABCR PO SCH (09:00)
[2022-01-29] MEDS: ONDANSETRON INJ 2 MG/ML 2 ML VIAL IV PRN ×2 (09:11→22:29)
[2022-01-29] MEDS: CHECK fentaNYL PATCH PLACEMENT SCH ×3 (09:11→23:18)
[2022-01-29] MEDS: HYDROmorphone HCL 2 MG TAB PO PRN (10:26)
[2022-01-29] MEDS: ASCORBIC ACID 500 MG TAB PEG SCH (10:28)
[2022-01-29] MEDS: FAMOTIDINE SUSP 40 MG/5 ML UDP NG SCH (10:29)
[2022-01-29] MEDS: guaiFENesin SUGAR FREE 200 MG/10 ML UDC PEG SCH ×4 (10:30→19:48)
[2022-01-29] MEDS: LOSARTAN POTASSIUM 50 MG TAB PEG SCH (10:31)
[2022-01-29] MEDS: RILUZOLE 50 MG PEG SCH ×2 (10:32→19:47)
[2022-01-29] MEDS: SACCHAROMYCES BOULARDII 250 MG CAP PO SCH (10:33)
[2022-01-29] MEDS: GLYCOPYRROLATE 1 MG TAB PO SCH (10:35)
[2022-01-29] MEDS: GABAPENTIN 250 MG/5 ML 470 ML BTL PO SCH ×3 (10:40→19:50)
[2022-01-29] MEDS: SUCRALFATE 1 GM/10 ML UDC PEG SCH ×4 (10:41→19:48)
[2022-01-29] MEDS ORDERED: MoRPHine SULFATE 2 MG/ML CARP IV PRN (13:23)
[2022-01-29] MEDS ORDERED: GLYCOPYRROLATE 1 MG TAB PO PRN (13:37)
[2022-01-29] MEDS: LANSOPRAZOLE 30 MG SOLTAB PEG SCH ×2 (13:40→17:36)
[2022-01-29] MEDS: HYDROmorphone INJ 1 MG/ML SYRINGE IV PRN (14:46)
[2022-01-29] MEDS: CEFEPIME 2,000 MG in SYRINGE 0 ML IV SCH ×2 (15:15→22:29)
--- NOTE | 2022-01-29 17:30 | Hospitalist Progress Note ---
Date of Service January 29, 2022 Assessment & Plan (1) Complicated UTI (urinary tract infection): Plan: #. CAUTI Patient was tested for UTI a week ago for increasing belly pain and being delirious. Patient has indwelling catheter. 01/05/22 Urine Cx: +ve for E coli and E. colacae complex susceptible to cefepime and few others. Patient was started on nitrofurantoin [documented allergy, but has used earlier this month] a day prior to arrival. Patient comes in with worsening nausea and feeling sick because of nitrofurantoin. Patient admitted for IV antibiotic. Urine analysis suggestive of UTI, admitting urine culture follow-up Patient started on meropenem 01/27 in the ED, developed hives on the night of 01/28, hence discontinued for concerns of allergy. Pt has recently used cefepime w/o issues, hence starting cefepime 01/29. c/w probiotic. #. Recent diagnosis of C diff currently under vanc po c/w home vanc, to be completed january 28, ? continue for the duration of ATB completion. admitting c diff test negative for c diff toxin. #. Other chronic medical conditions: ALS, PEG tube feeding ALS care including suction, anticholinergics, riluzole. Dietitian consult for PEG tube feeding. #. DVT prophylaxis: Heparin subcu #. DNR DNI Dispo: High risk for readmission. Due to poor prognosis, involving hospice might be a better idea. Has been communicated to the patient and her family in the past. Will follow. 01/29: d/w pt's at bedside. Updated the course and prognosis and vicious cycle of UTI/c diff in the patient. Also explained the need for balance between use of pain meds/anti cholinergics and patient's comfort/side effects from these meds. He voice understanding. Upon discussion about the code status, both patient and her want DNR/DNI. Also, we touched a topic of palliative care and hospice. They are not interested in hospice and had cancelled recent palliative care encounters. 01/29: d/w Pt's OP palliative care Dr. Macias, recommended to get in touch w/ shital Cortez ([phone]). Will do so tomorrow. Admission and Anticipated Discharge Date Admission Date: January 27, 2022 Subjective Patient seen and examined at bedside as a follow-up of complicated UTI needing IV antibiotics and progressive ALS history. Patient was lying in bed, on room air, NAD. Overnight pt had difficulty breathing and had hives, meropenem was discontinued, benadryl given. Rash has cleared by am bedside exam. Patient has tube feed. Patient complains of belly pain which seems to be at her baseline. Patient denies headache. d/w at bedside, rediscussed code status and hospice options. they want dnr/dni now, don't want to talk with hospice, had cancelled recent Palliative encounter. Physical Exam Physical Exam: GENERAL: Alert and oriented x3. NAD, on RA. HEENT: No pallor, no icterus. Pupils equal, round and reactive to light. Oral mucosa moist. NECK: No JVD, no neck masses. HEART: S1 and S2 heard. Regular rate and rhythm. No murmur, no gallop. RESPIRATORY SYSTEM: Normal AP diameter. No accessory muscle use. No wheezing, no crackles, decreased breath sounds ABDOMEN: Soft, bowel sounds present, nontender, no distention. PEG tube in place. Port of entry healthy w/o signs of infection. CENTRAL NERVOUS SYSTEM: No facial droop. Speech is clear. Obeys simple commands. EXTREMITIES: No edema, no erythema seen. UC cath in situ w/ yellow urine collection noted. Results & Data Results & Data ([facility]) Vital Signs (Past 12 Hours) Vital Signs Temp Pulse Resp BP Pulse Ox 01/29/22 14:36 36.7 C 82 17 166/85 H 96 01/29/22 07:23 36.5 C 70 16 134/75 94
[2022-01-29] MEDS: SIMETHICONE 80 MG CHEW PO PRN (19:49)
[2022-01-29] MEDS: GLYCOPYRROLATE 1 MG TAB PO PRN (23:13)
[2022-01-29] MEDS: hydrOXYzine HCl 25 MG TAB PEG PRN (23:13)
[2022-01-30] MEDS: TUBE FEEDING WATER FLUSH GT SCH ×5 (05:58→20:18)
[2022-01-30] MEDS: VANCOMYCIN HCL 125 MG/2.5ML SOLN PEG SCH ×3 (05:58→16:58)
[2022-01-30] MEDS: LEVOTHYROXINE SODIUM 112 MCG TABLET PO SCH (06:01)
[2022-01-30] MEDS: CHECK fentaNYL PATCH PLACEMENT SCH ×2 (09:36→16:31)
[2022-01-30] MEDS: ONDANSETRON INJ 2 MG/ML 2 ML VIAL IV PRN ×2 (09:37→19:59)
[2022-01-30] MEDS: hydrOXYzine HCl 25 MG TAB PEG PRN ×3 (09:38→22:10)
[2022-01-30] MEDS: ASCORBIC ACID 500 MG TAB PEG SCH (09:38)
[2022-01-30] MEDS: FAMOTIDINE SUSP 40 MG/5 ML UDP NG SCH (09:38)
[2022-01-30] MEDS: GABAPENTIN 250 MG/5 ML 470 ML BTL PO SCH ×3 (09:39→19:56)
[2022-01-30] MEDS: guaiFENesin SUGAR FREE 200 MG/10 ML UDC PEG SCH ×4 (09:40→19:56)
[2022-01-30] MEDS: LANSOPRAZOLE 30 MG SOLTAB PEG SCH ×2 (09:40→19:57)
[2022-01-30] MEDS: LOSARTAN POTASSIUM 50 MG TAB PEG SCH (09:40)
[2022-01-30] MEDS: SACCHAROMYCES BOULARDII 250 MG CAP PO SCH (09:41)
[2022-01-30] MEDS: RILUZOLE 50 MG PEG SCH ×2 (09:41→19:58)
[2022-01-30] MEDS: CEFEPIME 2,000 MG in SYRINGE 0 ML IV SCH ×2 (09:42→20:19)
[2022-01-30] MEDS: SUCRALFATE 1 GM/10 ML UDC PEG SCH ×4 (09:42→19:59)
[2022-01-30] MEDS: FIBERSOURCE HN 1.2 CAL 1000 ML BAG GT SCH (09:58)
[2022-01-30] MEDS: SIMETHICONE 80 MG CHEW PO PRN (11:35)
[2022-01-30] MEDS: GLYCOPYRROLATE 1 MG TAB PO PRN ×3 (11:35→22:10)
[2022-01-30] MEDS ORDERED: SCOPOLAMINE 1 MG TDSY TD PRN (18:47)
[2022-01-30] MEDS: CHECK SCOPOLAMINE PATCH PLACEMENT SCH (18:51)
--- NOTE | 2022-01-30 19:49 | Hospitalist Progress Note ---
Date of Service January 30, 2022 Assessment & Plan (1) Complicated UTI (urinary tract infection): Plan: #. CAUTI Patient was tested for UTI a week ago for increasing belly pain and being delirious. Patient has indwelling catheter. 01/05/22 Urine Cx: +ve for E coli and E. colacae complex susceptible to cefepime and few others. Patient was started on nitrofurantoin [documented allergy, but has used earlier this month] a day prior to arrival. Patient comes in with worsening nausea and feeling sick because of nitrofurantoin. Patient admitted for IV antibiotic. Urine analysis suggestive of UTI, admitting urine culture negative growth Patient started on meropenem 01/27 in the ED, developed hives on the night of 01/28, hence discontinued for concerns of allergy. Pt has recently used cefepime w/o issues, hence started cefepime 01/29. c/w probiotic. #. Recent diagnosis of C diff currently under vanc po c/w home vanc, to be completed january 28, ? continue for the duration of ATB completion. admitting c diff test negative for c diff toxin. #. Other chronic medical conditions: ALS, PEG tube feeding ALS care including suction, anticholinergics, riluzole. Dietitian consult for PEG tube feeding. #. DVT prophylaxis: Heparin subcu #. DNR DNI Dispo: High risk for readmission. Due to poor prognosis, involving hospice might be a better idea. Has been communicated to the patient and her family and they wouldn't like to talk w/ hospice at this moment. Can DC w/ iv antibiotic until 02/04, seems to be at her baseline. 01/29: d/w pt's at bedside. Updated the course and prognosis and vicious cycle of UTI/c diff in the patient. Also explained the need for balance between use of pain meds/anti cholinergics and patient's comfort/side effects from these meds. He voice understanding. Upon discussion about the code status, both patient and her want DNR/DNI. Also, we touched a topic of palliative care and hospice. They are not interested in hospice and had cancelled recent palliative care encounters. 01/29: d/w Pt's OP palliative care Dr. Macias, recommended to get in touch w/ shital Cortez ([phone]). Will do so tomorrow. Admission and Anticipated Discharge Date Admission Date: January 27, 2022 Subjective Patient seen and examined at bedside as a follow-up of complicated UTI needing IV antibiotics and progressive ALS history. Patient was lying in bed, on room air, NAD. Patient has tube feed. Patient complains of belly pain which seems to be at her baseline. Patient denies headache. No new events in the interim. d/w at bedside, updated and answered all his quesitons. Physical Exam Physical Exam: GENERAL: Alert and oriented x3. NAD, on RA. HEENT: No pallor, no icterus. Pupils equal, round and reactive to light. Oral mucosa moist. NECK: No JVD, no neck masses. HEART: S1 and S2 heard. Regular rate and rhythm. No murmur, no gallop. RESPIRATORY SYSTEM: Normal AP diameter. No accessory muscle use. No wheezing, no crackles, decreased breath sounds ABDOMEN: Soft, bowel sounds present, nontender, no distention. PEG tube in place. Port of entry healthy w/o signs of infection. CENTRAL NERVOUS SYSTEM: No facial droop. Speech is clear. Obeys simple commands. EXTREMITIES: No edema, no erythema seen. UC cath in situ w/ yellow urine collection noted. Results & Data Results & Data ([facility]) Vital Signs (Past 12 Hours) Vital Signs Temp Pulse Resp BP Pulse Ox 01/30/22 08:50 36.5 C 67 16 134/81 99
[2022-01-30] MEDS: fentaNYL 25 MCG/HR TDSY TD SCH (19:54)
[2022-01-30] MEDS ORDERED: SCOPOLAMINE 1 MG TDSY TD SCH (20:00)
[2022-01-31] MEDS: VANCOMYCIN HCL 125 MG/2.5ML SOLN PEG SCH ×4 (00:11→18:08)
[2022-01-31] MEDS: CHECK fentaNYL PATCH PLACEMENT SCH ×3 (00:11→16:42)
[2022-01-31] MEDS: CHECK SCOPOLAMINE PATCH PLACEMENT SCH ×3 (00:11→16:41)
[2022-01-31] MEDS: TUBE FEEDING WATER FLUSH GT SCH ×6 (00:12→21:07)
[2022-01-31] MEDS: LEVOTHYROXINE SODIUM 112 MCG TABLET PO SCH (05:39)
[2022-01-31] MEDS: SUCRALFATE 1 GM/10 ML UDC PEG SCH ×4 (09:49→21:06)
[2022-01-31] MEDS: CEFEPIME 2,000 MG in SYRINGE 0 ML IV SCH ×2 (09:49→21:11)
[2022-01-31] MEDS: FAMOTIDINE SUSP 40 MG/5 ML UDP NG SCH (09:49)
[2022-01-31] MEDS: GABAPENTIN 250 MG/5 ML 470 ML BTL PO SCH ×3 (09:49→21:07)
[2022-01-31] MEDS: guaiFENesin SUGAR FREE 200 MG/10 ML UDC PEG SCH ×4 (09:49→21:05)
[2022-01-31] MEDS: hydrOXYzine HCl 25 MG TAB PEG PRN ×2 (09:49→16:42)
[2022-01-31] MEDS: ONDANSETRON 4 MG OD TAB PEG PRN ×2 (09:49→16:42)
[2022-01-31] MEDS: LOSARTAN POTASSIUM 50 MG TAB PEG SCH (09:49)
[2022-01-31] MEDS: LANSOPRAZOLE 30 MG SOLTAB PEG SCH ×2 (09:50→21:02)
[2022-01-31] MEDS: ASCORBIC ACID 500 MG TAB PEG SCH (09:50)
[2022-01-31] MEDS: RILUZOLE 50 MG PEG SCH ×2 (09:50→20:59)
[2022-01-31] MEDS: SIMETHICONE 80 MG CHEW PO PRN (09:50)
[2022-01-31] MEDS: GLYCOPYRROLATE 1 MG TAB PO PRN ×2 (09:50→16:42)
[2022-01-31] MEDS: SACCHAROMYCES BOULARDII 250 MG CAP PO SCH (09:50)
[2022-01-31] MEDS: FIBERSOURCE HN 1.2 CAL 1000 ML BAG GT SCH (09:51)
[2022-01-31 09:58] LABS: BUN Creatinine Ratio 55.8 (10-20); Calcium 9.6 mg/dl (8.5-10.1); Creatinine Clr Calc Pharmacy 86.8 ml/min; Est GFR (African American) 113.7 ml/min; Est GFR (Non-African American) 98.1 ml/min; Phosphorus 3.6 mg/dl (2.5-4.9)
[2022-01-31] MEDS: LORazepam 1 MG TAB PEG PRN (12:42)
--- NOTE | 2022-01-31 19:11 | Hospitalist Progress Note ---
Date of Service January 31, 2022 Assessment & Plan (1) Complicated UTI (urinary tract infection): Plan: #. CAUTI Patient was tested for UTI a week ago for increasing belly pain and being delirious. Patient has indwelling catheter. 01/05/22 Urine Cx: +ve for E coli and E. colacae complex susceptible to cefepime and few others. Patient was started on nitrofurantoin [documented allergy, but has used earlier this month] a day prior to arrival. Patient comes in with worsening nausea and feeling sick because of nitrofurantoin. Patient admitted for IV antibiotic. Urine analysis suggestive of UTI, admitting urine culture negative growth Patient started on meropenem 01/27 in the ED, developed hives on the night of 01/28, hence discontinued for concerns of allergy. Pt has recently used cefepime w/o issues, hence started cefepime 01/29. c/w probiotic. #. Recent diagnosis of C diff currently under vanc po c/w home vanc, to be completed january 28, ? continue for the duration of ATB completion. admitting c diff test negative for c diff toxin. #. Other chronic medical conditions: ALS, PEG tube feeding ALS care including suction, anticholinergics, riluzole. Dietitian consult for PEG tube feeding. #. DVT prophylaxis: Heparin subcu #. DNR DNI Dispo: High risk for readmission. Due to poor prognosis, involving hospice might be a better idea. Has been communicated to the patient and her family and they wouldn't like to talk w/ hospice at this moment. Can DC w/ iv antibiotic until 02/04, seems to be at her baseline. CM to assist w/ DC planning. 01/29: d/w pt's at bedside. Updated the course and prognosis and vicious cycle of UTI/c diff in the patient. Also explained the need for balance between use of pain meds/anti cholinergics and patient's comfort/side effects from these meds. He voice understanding. Upon discussion about the code status, both patient and her want DNR/DNI. Also, we touched a topic of palliative care and hospice. They are not interested in hospice and had cancelled recent palliative care encounters. 01/29: d/w Pt's OP palliative care Dr. Macias, recommended to get in touch w/ shital Cortez ([phone]). Will do so soon. Admission and Anticipated Discharge Date Admission Date: January 27, 2022 Subjective Patient seen and examined at bedside as a follow-up of complicated UTI needing IV antibiotics and progressive ALS history. Patient was lying in bed, on room air, NAD. Patient has tube feed. Patient complains of belly pain which seems to be at her baseline. Patient denies headache. No new events in the interim. d/w at bedside 01/30, updated and answered all his quesitons. Physical Exam Physical Exam: GENERAL: Alert and oriented x3. NAD, on 2L NC O2. HEENT: No pallor, no icterus. Pupils equal, round and reactive to light. Oral mucosa moist. NECK: No JVD, no neck masses. HEART: S1 and S2 heard. Regular rate and rhythm. No murmur, no gallop. RESPIRATORY SYSTEM: Normal AP diameter. No accessory muscle use. No wheezing, no crackles, decreased breath sounds ABDOMEN: Soft, bowel sounds present, nontender, no distention. PEG tube in place. Port of entry healthy w/o signs of infection. CENTRAL NERVOUS SYSTEM: No facial droop. Speech is clear. Obeys simple commands. EXTREMITIES: No edema, no erythema seen. UC cath in situ w/ yellow urine collection noted. Results & Data Results & Data ([facility]) Vital Signs (Past 12 Hours) Vital Signs Temp Pulse Resp BP BP Pulse Ox 01/31/22 15:48 36.6 C 65 16 151/82 H 97 01/31/22 07:57 36.4 C L 66 16 151/85 H 98
[2022-01-31] MEDS: DICYCLOMINE HCL 20 MG TAB PEG PRN (21:04)
[2022-01-31] MEDS: HYDROmorphone INJ 1 MG/ML SYRINGE IV PRN (21:25)
[2022-02-01] MEDS: CHECK fentaNYL PATCH PLACEMENT SCH ×3 (01:09→15:29)
[2022-02-01] MEDS: CHECK SCOPOLAMINE PATCH PLACEMENT SCH ×3 (01:09→15:29)
[2022-02-01] MEDS: VANCOMYCIN HCL 125 MG/2.5ML SOLN PEG SCH ×4 (01:10→18:06)
[2022-02-01] MEDS: GLYCOPYRROLATE 1 MG TAB PO PRN ×3 (01:10→18:06)
[2022-02-01] MEDS: TUBE FEEDING WATER FLUSH GT SCH ×6 (01:10→20:45)
[2022-02-01] MEDS: LEVOTHYROXINE SODIUM 112 MCG TABLET PO SCH (05:50)
[2022-02-01] MEDS: LANSOPRAZOLE 30 MG SOLTAB PEG SCH ×2 (09:41→21:33)
[2022-02-01] MEDS: guaiFENesin SUGAR FREE 200 MG/10 ML UDC PEG SCH ×4 (09:41→21:32)
[2022-02-01] MEDS: SUCRALFATE 1 GM/10 ML UDC PEG SCH ×4 (09:41→21:34)
[2022-02-01] MEDS: GABAPENTIN 250 MG/5 ML 470 ML BTL PO SCH ×3 (09:42→21:30)
[2022-02-01] MEDS: ASCORBIC ACID 500 MG TAB PEG SCH (09:42)
[2022-02-01] MEDS: LOSARTAN POTASSIUM 50 MG TAB PEG SCH (09:42)
[2022-02-01] MEDS: SACCHAROMYCES BOULARDII 250 MG CAP PO SCH (09:42)
[2022-02-01] MEDS: CEFEPIME 2,000 MG in SYRINGE 0 ML IV SCH (09:42)
[2022-02-01] MEDS: FAMOTIDINE SUSP 40 MG/5 ML UDP NG SCH (09:42)
[2022-02-01] MEDS: RILUZOLE 50 MG PEG SCH ×2 (09:42→21:33)
[2022-02-01] MEDS: hydrOXYzine HCl 25 MG TAB PEG PRN ×3 (09:47→21:32)
[2022-02-01] MEDS: FIBERSOURCE HN 1.2 CAL 1000 ML BAG GT SCH (11:20)
[2022-02-01] MEDS: ONDANSETRON INJ 2 MG/ML 2 ML VIAL IV PRN ×2 (15:47→22:36)
[2022-02-01] MEDS ORDERED: Nursing to Pharmacy Communication SCH (16:15)
--- NOTE | 2022-02-01 16:54 | Hospitalist Progress Note ---
Date of Service February 01, 2022 Assessment & Plan (1) Complicated UTI (urinary tract infection): Plan: #. CAUTI Patient was tested for UTI a week ago for increasing belly pain and being delirious. Patient has indwelling catheter. 01/05/22 Urine Cx: +ve for E coli and E. colacae complex susceptible to cefepime and few others. Patient was started on nitrofurantoin [documented allergy, but has used earlier this month] a day prior to arrival. Patient comes in with worsening nausea and feeling sick because of nitrofurantoin. Patient admitted for IV antibiotic. Urine analysis suggestive of UTI, admitting urine culture negative growth Patient started on meropenem 01/27 in the ED, developed hives on the night of 01/28, hence discontinued for concerns of allergy. Pt has recently used cefepime w/o issues, hence started cefepime 01/29 --> rocephin 02/01. c/w probiotic. #. Recent diagnosis of C diff currently under vanc po c/w home vanc, to be completed january 28, ? continue for the duration of ATB comple tion. admitting c diff test negative for c diff toxin. #. Other chronic medical conditions: ALS, PEG tube feeding ALS care including suction, anticholinergics, riluzole. Dietitian consult for PEG tube feeding. #. DVT prophylaxis: Heparin subcu #. DNR DNI Dispo: High risk for readmission. Due to poor prognosis, involving hospice might be a better idea. Has been communicated to the patient and her family and they wouldn't like to talk w/ hospice at this moment. Can DC w/ iv antibiotic until 02/04, seems to be at her baseline. CM to assist w/ DC planning. 01/29: d/w pt's at bedside. Updated the course and prognosis and vicious cycle of UTI/c diff in the patient. Also explained the need for balance between use of pain meds/anti cholinergics and patient's comfort/side effects from these meds. He voice understanding. Upon discussion about the code status, both patient and her want DNR/DNI. Also, we touched a topic of palliative care and hospice. They are not interested in hospice and had cancelled recent palliative care encounters. 01/29: d/w Pt's OP palliative care Dr. Macias, recommended to get in touch w/ shital Cortez ([phone]) for information/palliative questions. Admission and Anticipated Discharge Date Admission Date: January 27, 2022 Subjective Patient seen and examined at bedside as a follow-up of complicated UTI needing IV antibiotics and progressive ALS history. Patient was lying in bed, on room air, NAD. Patient has tube feed. Patient complains of belly pain which seems to be at her baseline. Patient denies headache. No new events in the interim. Pt reports feeling better. d/w at bedside 02/01, updated and answered all his questions. Physical Exam Physical Exam: GENERAL: Alert and oriented x3. NAD, on 2L NC O2. HEENT: No pallor, no icterus. Pupils equal, round and reactive to light. Oral mucosa moist. NECK: No JVD, no neck masses. HEART: S1 and S2 heard. Regular rate and rhythm. No murmur, no gallop. RESPIRATORY SYSTEM: Normal AP diameter. No accessory muscle use. No wheezing, no crackles, decreased breath sounds ABDOMEN: Soft, bowel sounds present, nontender, no distention. PEG tube in place. Port of entry healthy w/o signs of infection. CENTRAL NERVOUS SYSTEM: No facial droop. Speech is clear. Obeys simple commands. EXTREMITIES: No edema, no erythema seen. UC cath in situ w/ yellow urine collection noted. Results & Data Results & Data ([facility]) Vital Signs (Past 12 Hours) Vital Signs Temp Pulse Resp BP Pulse Ox 02/01/22 08:17 36.4 C L 63 16 131/65 99
[2022-02-01] MEDS: SCOPOLAMINE 1 MG TDSY TD SCH (18:04)
[2022-02-01] MEDS: cefTRIAXone SODIUM 1,000 MG in DEXTROSE 5% 50 ML IV SCH (21:22)
[2022-02-01] MEDS: HYDROmorphone INJ 1 MG/ML SYRINGE IV PRN (21:25)
[2022-02-01] MEDS: DICYCLOMINE HCL 20 MG TAB PEG PRN (21:30)
[2022-02-02] MEDS: CHECK fentaNYL PATCH PLACEMENT SCH ×3 (00:10→15:12)
[2022-02-02] MEDS: VANCOMYCIN HCL 125 MG/2.5ML SOLN PEG SCH ×4 (00:10→17:30)
[2022-02-02] MEDS: CHECK SCOPOLAMINE PATCH PLACEMENT SCH (00:33)
[2022-02-02] MEDS: TUBE FEEDING WATER FLUSH GT SCH ×6 (00:45→21:09)
[2022-02-02] MEDS: LEVOTHYROXINE SODIUM 112 MCG TABLET PO SCH (05:52)
[2022-02-02 06:33] LABS: Hematocrit (blood only) 32.8 % (37-47); Hemoglobin 10.3 g/dL (12.0-16.0); Mean Corpuscular Hemoglobin 27.2 pg (25-34); Mean Corpuscular Hgb Conc 31.4 g/dL (32-36); Mean Corpuscular Volume 86.8 fL (80-100); Mean Platelet Volume 10.8 fL (7.4-10.4); Platelet Count 280 K/uL (130-400); RDW Coefficient of Variation 13.3 % (11.5-14.5); RDW Standard Deviation 42.3 fL (36.4-46.3); Red Blood Count 3.78 M/uL (4.2-5.4); White Blood Count 6.35 K/uL (4.8-10.8)
[2022-02-02 06:54] LABS: BUN Creatinine Ratio 55.6 (10-20); Calcium 9.4 mg/dl (8.5-10.1); Creatinine Clr Calc Pharmacy 82.9 ml/min; Est GFR (Non-African American) 96.7 ml/min; Magnesium 1.8 mg/dl (1.7-2.4); Phosphorus 3.3 mg/dl (2.5-4.9); Potassium 3.9 mmol/L (3.5-5.1)
[2022-02-02] MEDS: FAMOTIDINE SUSP 40 MG/5 ML UDP NG SCH (08:11)
[2022-02-02] MEDS: guaiFENesin SUGAR FREE 200 MG/10 ML UDC PEG SCH ×4 (08:11→21:20)
[2022-02-02] MEDS: GABAPENTIN 250 MG/5 ML 470 ML BTL PO SCH ×3 (08:11→21:19)
[2022-02-02] MEDS: SACCHAROMYCES BOULARDII 250 MG CAP PO SCH (08:11)
[2022-02-02] MEDS: LANSOPRAZOLE 30 MG SOLTAB PEG SCH ×2 (08:11→21:18)
[2022-02-02] MEDS: SUCRALFATE 1 GM/10 ML UDC PEG SCH ×4 (08:11→21:29)
[2022-02-02] MEDS: ASCORBIC ACID 500 MG TAB PEG SCH (08:12)
[2022-02-02] MEDS: RILUZOLE 50 MG PEG SCH ×2 (08:13→21:17)
[2022-02-02] MEDS: LOSARTAN POTASSIUM 50 MG TAB PEG SCH (08:14)
[2022-02-02] MEDS: FIBERSOURCE HN 1.2 CAL 1000 ML BAG GT SCH (12:39)
[2022-02-02] MEDS: GLYCOPYRROLATE 1 MG TAB PO PRN (14:02)
[2022-02-02] MEDS: LORazepam 1 MG TAB PEG PRN (14:02)
--- NOTE | 2022-02-02 14:17 | Hospitalist Progress Note ---
Date of Service February 02, 2022 Assessment & Plan (1) Complicated UTI (urinary tract infection): Plan: #. CAUTI Patient was tested for UTI a week ago for increasing belly pain and being delirious. Patient has indwelling catheter. 01/05/22 Urine Cx: +ve for E coli and E. cloacae complex susceptible to cefepime and few others. Patient was started on nitrofurantoin [documented allergy, but has used earlier this month] a day prior to arrival. Patient comes in with worsening nausea and feeling sick because of nitrofurantoin. Patient admitted for IV antibiotic. Urine analysis suggestive of UTI, admitting urine culture negative growth Patient started on meropenem 01/27 in the ED, developed hives on the night of 01/28, hence discontinued for concerns of allergy. Pt has recently used cefepime w/o issues, hence started cefepime 01/29 --> rocephin 02/01. c/w probiotic. #. Recent diagnosis of C diff currently under vanc po c/w home vanc until a week after antibiotic completion given her recurrent C diff admitting c diff test negative for c diff toxin. #. Other chronic medical conditions: ALS, PEG tube feeding ALS care including suction, anticholinergics, riluzole. Dietitian consult for PEG tube feeding. per prior hospitalist: 01/29: d/w pt's at bedside. Updated the course and prognosis and vicious cycle of UTI/c diff in the patient. Also explained the need for balance between use of pain meds/anti cholinergics and patient's comfort/side effects from these meds. He voice understanding. Upon discussion about the code status, both p su and her want DNR/DNI. Also, we touched a topic of palliative care and hospice. They are not interested in hospice and had cancelled recent palliative care encounters. 01/29: d/w Pt's OP palliative care Dr. Macias, recommended to get in touch w/ shital Cortez ([phone]) for information/palliative questions. DVT prophylaxis: Heparin subcu Dispo- pending completion of IV ABx on Sunday 02/04 for her CAUTI. Patient and family not interested in hospice per prior hospitalist. Admission and Anticipated Discharge Date Admission Date: January 27, 2022 Subjective States she is still weak. at bedside and states that her hydroxyzine and glycopyrrolate was not being given to her here- as a result she is having lots of secretions and now lagging behind. Also he told me that her ALS doctor from [facility] had told them not to discharge her until her secretions are under control. I made her medications scheduled as she was getting at home. No fever, chills, chest pain, shortness of breath. Physical Exam Physical Exam: General: Lying comfortably in bed, not in distress, on NC HEENT: EOMI, ALONDRA, MMM Chest:Fair breath sounds anteriorly CVS: Regular rate and rhythm, normal heart sounds, no murmur Abdomen: Soft, non tender, not distended, normal bowel sounds, PEG tube in place getting tube feeding Neuro: Awake, alert, oriented, conversing well. Left sided weakness. Extremities: No edema Rodriguez in place with yellow urine Results & Data Results & Data ([facility]) Vital Signs (Past 12 Hours) Vital Signs Temp Pulse Resp BP Pulse Ox 02/02/22 06:06 36.6 C 69 16 149/63 H 92 Laboratory Results Short CBC 02/02/22 Range/Units 05:48 WBC 6.35 (4.8-10.8) K/uL Hgb 10.3 L (12.0-16.0) g/dL Hct 32.8 L (37-47) % Plt Count 280 (130-400) K/uL BMP 02/02/22 05:48 Sodium 134 L Potassium 3.9 Chloride 100 Carbon Dioxide 30 BUN 25 H Creatinine 0.45 L Glucose 111 H Calcium 9.4 Medications Administered Current Inpatient Medications Albuterol (Albuterol 0.083% Nebu Soln 3 Ml Vial) 2.5 mg INH Q4H PRN; Protocol PRN Reason: Wheezing Stop: 02/26/22 21:30 Last Admin: 01/28/22 22:55 Dose: 2.5 mg Documented by: Ascorbic Acid (Ascorbic Acid 500 Mg Tab) 500 mg PEG QAM DAIJA Stop: 02/27/22 08:59 Last Admin: 02/02/22 08:12 Dose: 500 mg Documented by: Calamine/Phenol (Menthol-Zinc Oxide 360 Appln/120 Gm Tube) 1 appln EXT QID PRN PRN Reason: sores Stop: 02/26/22 21:30 Cetirizine HCl (Cetirizine Hcl 10 Mg Tablet) 10 mg PO DAILY PRN PRN Reason: Allergy Symptoms Stop: 02/27/22 00:26 Cholestyramine Resin (Cholestyramine Light 4 Gm Pkt) 2 - 4 gm PEG BID PRN PRN Reason: Stool Bulking Stop: 02/26/22 23:56 Dicyclomine HCl (Dicyclomine Hcl 20 Mg Tab) 20 mg PEG Q6H PRN PRN Reason: Diarrhea Stop: 02/26/22 21:30 Last Admin: 02/01/22 21:30 Dose: 20 mg Documented by: Diphenhydramine HCl (Diphenhydramine Hcl 25 Mg/10 Ml Udc) 25 - 50 mg PEG DAILY PRN PRN Reason: Allergy Symptoms Stop: 02/26/22 23:57 Enteral Nutritional Formula (Fibersource Hn 1.2 Kavon 1000 Ml Bag) 1,000 ml GT UD [facility]; Protocol Stop: 02/26/22 20:29 Last Admin: 02/02/22 12:39 Dose: 1,000 ml Documented by: Famotidine (Famotidine Susp 40 Mg/5 Ml Udp) 40 mg NG QAM [facility] Stop: 02/27/22 08:59 Last Admin: 02/02/22 08:11 Dose: 40 mg Documented by: Fentanyl (Fentanyl 25 Mcg/Hr Tdsy) 25 mcg TD Q3D@2100 [facility] Stop: 02/10/22 22:59 Last Admin: 01/30/22 19:54 Dose: 25 mcg Documented by: Fluticasone Propionate (Fluticasone Propionate Na Spr 16 Gm Btl) 2 sprays NA DAILY PRN PRN Reason: Allergy Symptoms Stop: 02/26/22 21:30 Gabapentin (Gabapentin 250 Mg/5 Ml 470 Ml Btl) 100 mg PO TID [facility] Stop: 02/26/22 21:30 Last Admin: 02/02/22 12:42 Dose: 100 mg Documented by: Glycopyrrolate (Glycopyrrolate 1 Mg Tab) 1 mg PO TID [facility] Stop: 03/04/22 20:59 Guaifenesin (Guaifenesin Sugar Free 200 Mg/10 Ml Udc) 400 mg PEG 0900,1300,1700,2100 [facility] Stop: 02/27/22 12:59 Last Admin: 02/02/22 12:43 Dose: 400 mg Documented by: Hydrocortisone (Hydrocortisone Hc 2.5% Crm 30gm Tube) 1 appln EXT BID PRN PRN Reason: Hemorrhoids Stop: 02/26/22 21:30 Hydromorphone HCl (Hydromorphone Hcl 2 Mg Tab) 1 mg PO Q4H PRN PRN Reason: pain Stop: 02/10/22 21:30 Last Admin: 01/29/22 10:26 Dose: 1 mg Documented by: Hydromorphone HCl (Hydromorphone Inj 1 Mg/Ml Syringe) 1 mg IV Q6H PRN PRN Reason: Severe Pain Stop: 02/12/22 13:35 Last Admin: 02/01/22 21:25 Dose: 1 mg Documented by: Hydroxyzine HCl (Hydroxyzine Hcl 25 Mg Tab) 25 mg PEG TID [facility] Stop: 03/04/22 14:59 Hyoscyamine (Hyoscyamine Sulfate 0.125 Mg Tab) 0.125 mg PO DAILY PRN PRN Reason: abdominal cramps Stop: 02/27/22 00:02 Ceftriaxone Sodium 1,000 mg/ (Dextrose) 60 mls @ 120 mls/hr IV Q24H DAIJA Stop: 02/08/22 23:59 Last Infusion: 02/01/22 21:55 Dose: Infused Documented by: Lansoprazole (Lansoprazole 30 Mg Soltab) 30 mg PEG BID [facility] Stop: 02/26/22 21:30 Last Admin: 02/02/22 08:11 Dose: 30 mg Documented by: Levothyroxine Sodium (Levothyroxine Sodium 112 Mcg Tablet) 112 mcg PO DAILYBB DAIJA Stop: 02/27/22 06:29 Last Admin: 02/02/22 05:52 Dose: 112 mcg Documented by: Lidocaine (Lidocaine 5% 1 Patch) 1 patch TD DAILY PRN PRN Reason: Pain Stop: 02/26/22 21:30 Lorazepam (Lorazepam 1 Mg Tab) 1 mg PEG QID PRN PRN Reason: Anxiety Stop: 02/26/22 21:30 Last Admin: 02/02/22 14:02 Dose: 1 mg Documented by: Losartan Potassium (Losartan Potassium 50 Mg Tab) 100 mg PEG QAM DAIJA Stop: 02/27/22 08:59 Last Admin: 02/02/22 08:14 Dose: 100 mg Documented by: Mirtazapine (Mirtazapine Tab 15 Mg Tab) 7.5 mg GT HS PRN PRN Reason: Sleep Stop: 02/26/22 21:30 Miscellaneous (Fentanyl Patch Remove & Waste) 1 ea N/A Q3D@2058 [facility] Stop: 02/26/22 22:58 Last Admin: 01/30/22 21:18 Dose: 1 ea Documented by: Ruchi (Check Fentanyl Patch Placement) 1 ea N/A QS [facility] Stop: 02/27/22 00:00 Last Admin: 02/02/22 15:12 Dose: 1 ea Documented by: Ruchi (Remove Lidoderm Patch) 1 ea N/A DAILY@2100 [facility] Stop: 02/26/22 21:30 Last Admin: 02/01/22 21:33 Dose: Not Given Documented by: Ruchi (Remove Transderm-Scop Patch) 1 ea N/A Q72H [facility] Stop: 03/06/22 16:29 Riluzole 50 Mg - (Patient's Own Med) 1 ea PEG BID [facility] Stop: 02/26/22 21:30 Last Admin: 02/02/22 08:13 Dose: 50 mg Documented by: Ondansetron HCl (Ondansetron Inj 2 Mg/Ml 2 Ml Vial) 4 mg IV Q6H PRN PRN Reason: Nausea Stop: 02/26/22 17:53 Last Admin: 02/01/22 22:36 Dose: 4 mg Documented by: Ondansetron HCl (Ondansetron 4 Mg Od Tab) 4 mg PEG Q6H PRN PRN Reason: Nausea And Vomiting Stop: 02/26/22 23:56 Last Admin: 01/31/22 16:42 Dose: 4 mg Documented by: Saccharomyces Boulardii (Saccharomyces Boulardii 250 Mg Cap) 250 mg PO QAM [facility] Stop: 02/27/22 08:59 Last Admin: 02/02/22 08:11 Dose: 250 mg Documented by: Scopolamine (Scopolamine 1 Mg Tdsy) 1 mg TD Q72H DAIJA Stop: 03/03/22 16:29 Last Admin: 02/01/22 18:04 Dose: 1 mg Documented by: Simethicone (Simethicone 80 Mg Chew) 80 mg PO DAILY PRN PRN Reason: excessive gas Stop: 02/26/22 21:30 Last Admin: 01/31/22 09:50 Dose: 80 mg Documented by: Sterile Water (Tube Feeding Water Flush) 100 ml GT Q4H DAIJA Stop: 02/26/22 20:44 Last Admin: 02/02/22 12:39 Dose: 100 ml Documented by: Sucralfate (Sucralfate 1 Gm/10 Ml Udc) 1 gm PEG QID DAIJA Stop: 02/26/22 21:30 Last Admin: 02/02/22 12:43 Dose: 1 gm Documented by: Vancomycin HCl (Vancomycin Hcl 125 Mg/2.5ml Soln) 125 mg PEG Q6 DAIJA Stop: 02/07/22 00:00 Last Admin: 02/02/22 12:39 Dose: 125 mg Documented by:
[2022-02-02] MEDS: hydrOXYzine HCl 25 MG TAB PEG SCH ×2 (16:20→21:29)
[2022-02-02] MEDS: fentaNYL 25 MCG/HR TDSY TD SCH (21:09)
[2022-02-02] MEDS: cefTRIAXone SODIUM 1,000 MG in DEXTROSE 5% 50 ML IV SCH (21:14)
[2022-02-02] MEDS: DICYCLOMINE HCL 20 MG TAB PEG PRN (21:19)
[2022-02-02] MEDS: GLYCOPYRROLATE 1 MG TAB PO SCH (21:21)
[2022-02-02] MEDS: HYDROmorphone INJ 1 MG/ML SYRINGE IV PRN (22:05)
[2022-02-02] MEDS: ONDANSETRON INJ 2 MG/ML 2 ML VIAL IV PRN (22:05)
[2022-02-03] MEDS: VANCOMYCIN HCL 125 MG/2.5ML SOLN PEG SCH ×4 (00:08→17:29)
[2022-02-03] MEDS: CHECK fentaNYL PATCH PLACEMENT SCH ×3 (00:08→15:31)
[2022-02-03] MEDS: TUBE FEEDING WATER FLUSH GT SCH ×6 (00:08→20:50)
[2022-02-03] MEDS: LEVOTHYROXINE SODIUM 112 MCG TABLET PO SCH (06:16)
[2022-02-03] MEDS: SACCHAROMYCES BOULARDII 250 MG CAP PO SCH (09:38)
[2022-02-03] MEDS: LOSARTAN POTASSIUM 50 MG TAB PEG SCH (09:38)
[2022-02-03] MEDS: guaiFENesin SUGAR FREE 200 MG/10 ML UDC PEG SCH ×4 (09:38→20:32)
[2022-02-03] MEDS: GLYCOPYRROLATE 1 MG TAB PO SCH ×3 (09:38→20:32)
[2022-02-03] MEDS: ASCORBIC ACID 500 MG TAB PEG SCH (09:38)
[2022-02-03] MEDS: LANSOPRAZOLE 30 MG SOLTAB PEG SCH ×2 (09:38→20:32)
[2022-02-03] MEDS: RILUZOLE 50 MG PEG SCH ×2 (09:39→20:34)
[2022-02-03] MEDS: GABAPENTIN 250 MG/5 ML 470 ML BTL PO SCH ×3 (09:40→20:32)
[2022-02-03] MEDS: FAMOTIDINE SUSP 40 MG/5 ML UDP NG SCH (09:40)
[2022-02-03] MEDS: SUCRALFATE 1 GM/10 ML UDC PEG SCH ×4 (09:41→20:34)
[2022-02-03] MEDS: ONDANSETRON 4 MG OD TAB PEG PRN (09:44)
[2022-02-03] MEDS: hydrOXYzine HCl 25 MG TAB PEG SCH ×3 (10:21→20:32)
[2022-02-03] MEDS: FIBERSOURCE HN 1.2 CAL 1000 ML BAG GT SCH (13:02)
--- NOTE | 2022-02-03 16:03 | Hospitalist Progress Note ---
Date of Service February 03, 2022 Assessment & Plan (1) Complicated UTI (urinary tract infection): Plan: #. CAUTI Patient was tested for UTI a week ago for increasing belly pain and being delirious. Patient has indwelling catheter. 01/05/22 Urine Cx: +ve for E coli and E. cloacae complex susceptible to cefepime and few others. Patient was started on nitrofurantoin [documented allergy, but has used earlier this month] a day prior to arrival. Patient comes in with worsening nausea and feeling sick because of nitrofurantoin. Patient admitted for IV antibiotic. Urine analysis suggestive of UTI, admitting urine culture negative growth Patient started on meropenem 01/27 in the ED, developed hives on the night of 01/28, hence discontinued for concerns of allergy. Pt has recently used cefepime w/o issues, hence started cefepime 01/29 --> rocephin 02/01. c/w probiotic. Kenny was already changed this admission after few days of IV ABx, so need to change- recommend at least monthly kenny replacement and good kenny care to prevent recurrent CAUTIs. #. Recent diagnosis of C diff currently under vanc po c/w home vanc until a week after antibiotic completion given her recurrent C diff admitting c diff test negative for c diff toxin. #. Other chronic medical conditions: ALS, PEG tube feeding ALS care including suction, anticholinergics, riluzole. Dietitian consult for PEG tube feeding. per prior hospitalist: 01/29: d/w pt's at bedside. Updated the course and prognosis and vicious cycle of UTI/c diff in the patient. Also explained the need for balance between use of pain meds/anti cholinergics and patient's comfort/side effects from these meds. He voice understanding. Upon discussion about the code status, both patient and her want DNR/DNI. Also, we touched a topic of palliative care and hospice. They are not interested in hospice and had cancelled recent palliative care encounters. 01/29: d/w Pt's OP palliative care Dr. Macias, recommended to get in touch w/ shital Cortez ([phone]) for information/palliative questions. DVT prophylaxis: Heparin subcu Dispo- pending completion of IV ABx on Sunday 02/04 for her CAUTI. Patient and family not interested in hospice per prior hospitalist. Admission and Anticipated Discharge Date Admission Date: January 27, 2022 Subjective Denies any new issues. States having lots of suctions- not thick- thinks we are heading in right direction. at bedside- asking how to prevent recurrent UTI- however patient did not want the kenny out. No fever, chills, nausea, vomiting. Physical Exam Physical Exam: General: Lying comfortably in bed, not in distress, on NC HEENT: EOMI, ALONDRA, MMM Chest:Fair breath sounds anteriorly CVS: Regular rate and rhythm, normal heart sounds, no murmur Abdomen: Soft, non tender, not distended, normal bowel sounds, PEG tube in place getting tube feeding Neuro: Awake, alert, oriented, conversing well. Left sided weakness. Extremities: No edema Kenny in place with yellow urine Results & Data Results & Data ([facility]) Vital Signs (Past 12 Hours) Vital Signs Temp Pulse Resp BP Pulse Ox 02/03/22 15:50 36.7 C 69 16 131/70 95 02/03/22 07:18 36.4 C L 74 18 120/63 99 Medications Administered Current Inpatient Medications Albuterol (Albuterol 0.083% Nebu Soln 3 Ml Vial) 2.5 mg INH Q4H PRN; Protocol PRN Reason: Wheezing Stop: 02/26/22 21:30 Last Admin: 01/28/22 22:55 Dose: 2.5 mg Documented by: Ascorbic Acid (Ascorbic Acid 500 Mg Tab) 500 mg PEG QAM [facility] Stop: 02/27/22 08:59 Last Admin: 02/03/22 09:38 Dose: 500 mg Documented by: Calamine/Phenol (Menthol-Zinc Oxide 360 Appln/120 Gm Tube) 1 appln EXT QID PRN PRN Reason: sores Stop: 02/26/22 21:30 Cetirizine HCl (Cetirizine Hcl 10 Mg Tablet) 10 mg PO DAILY PRN PRN Reason: Allergy Symptoms Stop: 02/27/22 00:26 Cholestyramine Resin (Cholestyramine Light 4 Gm Pkt) 2 - 4 gm PEG BID PRN PRN Reason: Stool Bulking Stop: 02/26/22 23:56 Dicyclomine HCl (Dicyclomine Hcl 20 Mg Tab) 20 mg PEG Q6H PRN PRN Reason: Diarrhea Stop: 02/26/22 21:30 Last Admin: 02/02/22 21:19 Dose: 20 mg Documented by: Diphenhydramine HCl (Diphenhydramine Hcl 25 Mg/10 Ml Udc) 25 - 50 mg PEG DAILY PRN PRN Reason: Allergy Symptoms Stop: 02/26/22 23:57 Enteral Nutritional Formula (Fibersource Hn 1.2 Kavon 1000 Ml Bag) 1,000 ml GT UD [facility]; Protocol Stop: 02/26/22 20:29 Last Admin: 02/03/22 13:02 Dose: 1,000 ml Documented by: Famotidine (Famotidine Susp 40 Mg/5 Ml Udp) 40 mg NG QAM [facility] Stop: 02/27/22 08:59 Last Admin: 02/03/22 09:40 Dose: 40 mg Documented by: Fentanyl (Fentanyl 25 Mcg/Hr Tdsy) 25 mcg TD Q3D@2100 [facility] Stop: 02/10/22 22:59 Last Admin: 02/02/22 21:09 Dose: 25 mcg Documented by: Fluticasone Propionate (Fluticasone Propionate Na Spr 16 Gm Btl) 2 sprays NA DAILY PRN PRN Reason: Allergy Symptoms Stop: 02/26/22 21:30 Gabapentin (Gabapentin 250 Mg/5 Ml 470 Ml Btl) 100 mg PO TID [facility] Stop: 02/26/22 21:30 Last Admin: 02/03/22 13:01 Dose: 100 mg Documented by: Glycopyrrolate (Glycopyrrolate 1 Mg Tab) 1 mg PO TID [facility] Stop: 03/04/22 20:59 Last Admin: 02/03/22 13:02 Dose: 1 mg Documented by: Guaifenesin (Guaifenesin Sugar Free 200 Mg/10 Ml Udc) 400 mg PEG 0900,1300,1700,2100 [facility] Stop: 02/27/22 12:59 Last Admin: 02/03/22 13:01 Dose: 400 mg Documented by: Hydrocortisone (Hydrocortisone Hc 2.5% Crm 30gm Tube) 1 appln EXT BID PRN PRN Reason: Hemorrhoids Stop: 02/26/22 21:30 Hydromorphone HCl (Hydromorphone Hcl 2 Mg Tab) 1 mg PO Q4H PRN PRN Reason: pain Stop: 02/10/22 21:30 Last Admin: 01/29/22 10:26 Dose: 1 mg Documented by: Hydromorphone HCl (Hydromorphone Inj 1 Mg/Ml Syringe) 1 mg IV Q6H PRN PRN Reason: Severe Pain Stop: 02/12/22 13:35 Last Admin: 02/02/22 22:05 Dose: 1 mg Documented by: Hydroxyzine HCl (Hydroxyzine Hcl 25 Mg Tab) 25 mg PEG TID [facility] Stop: 03/04/22 14:59 Last Admin: 02/03/22 14:35 Dose: 25 mg Documented by: Hyoscyamine (Hyoscyamine Sulfate 0.125 Mg Tab) 0.125 mg PO DAILY PRN PRN Reason: abdominal cramps Stop: 02/27/22 00:02 Ceftriaxone Sodium 1,000 mg/ (Dextrose) 60 mls @ 120 mls/hr IV Q24H [facility] Stop: 02/08/22 23:59 Last Infusion: 02/02/22 21:45 Dose: Infused Documented by: Lansoprazole (Lansoprazole 30 Mg Soltab) 30 mg PEG BID [facility] Stop: 02/26/22 21:30 Last Admin: 02/03/22 09:38 Dose: 30 mg Documented by: Levothyroxine Sodium (Levothyroxine Sodium 112 Mcg Tablet) 112 mcg PO DAILYBB [facility] Stop: 02/27/22 06:29 Last Admin: 02/03/22 06:16 Dose: 112 mcg Documented by: Lidocaine (Lidocaine 5% 1 Patch) 1 patch TD DAILY PRN PRN Reason: Pain Stop: 02/26/22 21:30 Lorazepam (Lorazepam 1 Mg Tab) 1 mg PEG QID PRN PRN Reason: Anxiety Stop: 02/26/22 21:30 Last Admin: 02/02/22 14:02 Dose: 1 mg Documented by: Losartan Potassium (Losartan Potassium 50 Mg Tab) 100 mg PEG QAM [facility] Stop: 02/27/22 08:59 Last Admin: 02/03/22 09:38 Dose: 100 mg Documented by: Mirtazapine (Mirtazapine Tab 15 Mg Tab) 7.5 mg GT HS PRN PRN Reason: Sleep Stop: 02/26/22 21:30 Miscellaneous (Fentanyl Patch Remove & Waste) 1 ea N/A Q3D@2058 [facility] Stop: 02/26/22 22:58 Last Admin: 02/02/22 21:09 Dose: 1 ea Documented by: Miscellaneous (Check Fentanyl Patch Placement) 1 ea N/A QS [facility] Stop: 02/27/22 00:00 Last Admin: 02/03/22 15:31 Dose: 1 ea Documented by: Debcellaneous (Remove Lidoderm Patch) 1 ea N/A DAILY@2100 [facility] Stop: 02/26/22 21:30 Last Admin: 02/02/22 21:23 Dose: Not Given Documented by: Ruchi (Remove Transderm-Scop Patch) 1 ea N/A Q72H [facility] Stop: 03/06/22 16:29 Riluzole 50 Mg - (Patient's Own Med) 1 ea PEG BID [facility] Stop: 02/26/22 21:30 Last Admin: 02/03/22 09:39 Dose: 50 mg Documented by: Ondansetron HCl (Ondansetron Inj 2 Mg/Ml 2 Ml Vial) 4 mg IV Q6H PRN PRN Reason: Nausea Stop: 02/26/22 17:53 Last Admin: 02/02/22 22:05 Dose: 4 mg Documented by: Ondansetron HCl (Ondansetron 4 Mg Od Tab) 4 mg PEG Q6H PRN PRN Reason: Nausea And Vomiting Stop: 02/26/22 23:56 Last Admin: 02/03/22 09:44 Dose: 4 mg Documented by: Saccharomyces Boulardii (Saccharomyces Boulardii 250 Mg Cap) 250 mg PO QAM [facility] Stop: 02/27/22 08:59 Last Admin: 02/03/22 09:38 Dose: 250 mg Documented by: Scopolamine (Scopolamine 1 Mg Tdsy) 1 mg TD Q72H [facility] Stop: 03/03/22 16:29 Last Admin: 02/01/22 18:04 Dose: 1 mg Documented by: Simethicone (Simethicone 80 Mg Chew) 80 mg PO DAILY PRN PRN Reason: excessive gas Stop: 02/26/22 21:30 Last Admin: 01/31/22 09:50 Dose: 80 mg Documented by: Sterile Water (Tube Feeding Water Flush) 100 ml GT Q4H [facility] Stop: 02/26/22 20:44 Last Admin: 02/03/22 13:01 Dose: 100 ml Documented by: Sucralfate (Sucralfate 1 Gm/10 Ml Udc) 1 gm PEG QID [facility] Stop: 02/26/22 21:30 Last Admin: 02/03/22 13:01 Dose: 1 gm Documented by: Vancomycin HCl (Vancomycin Hcl 125 Mg/2.5ml Soln) 125 mg PEG Q6 [facility] Stop: 02/07/22 00:00 Last Admin: 02/03/22 13:01 Dose: 125 mg Documented by:
[2022-02-03] MEDS: ONDANSETRON INJ 2 MG/ML 2 ML VIAL IV PRN (18:32)
[2022-02-03] MEDS: cefTRIAXone SODIUM 1,000 MG in DEXTROSE 5% 50 ML IV SCH (20:24)
[2022-02-03] MEDS: DICYCLOMINE HCL 20 MG TAB PEG PRN (20:32)
[2022-02-03] MEDS: HYDROmorphone INJ 1 MG/ML SYRINGE IV PRN (21:01)
[2022-02-04] MEDS: ONDANSETRON INJ 2 MG/ML 2 ML VIAL IV PRN ×3 (00:39→21:46)
[2022-02-04] MEDS: CHECK fentaNYL PATCH PLACEMENT SCH ×4 (00:39→23:13)
[2022-02-04] MEDS: VANCOMYCIN HCL 125 MG/2.5ML SOLN PEG SCH ×5 (00:39→23:13)
[2022-02-04] MEDS: TUBE FEEDING WATER FLUSH GT SCH ×6 (00:39→21:52)
[2022-02-04] MEDS: LEVOTHYROXINE SODIUM 112 MCG TABLET PO SCH (05:26)
[2022-02-04] MEDS: HYDROmorphone INJ 1 MG/ML SYRINGE IV PRN ×2 (08:26→22:26)
[2022-02-04 09:16] LABS: Hematocrit (blood only) 35.1 % (37-47); Hemoglobin 11.1 g/dL (12.0-16.0); Mean Corpuscular Hemoglobin 27.3 pg (25-34); Mean Corpuscular Hgb Conc 31.6 g/dL (32-36); Mean Corpuscular Volume 86.2 fL (80-100); Mean Platelet Volume 10.8 fL (7.4-10.4); Platelet Count 267 K/uL (130-400); RDW Coefficient of Variation 13.2 % (11.5-14.5); RDW Standard Deviation 42.1 fL (36.4-46.3); Red Blood Count 4.07 M/uL (4.2-5.4); White Blood Count 6.79 K/uL (4.8-10.8)
[2022-02-04 09:36] LABS: BUN Creatinine Ratio 46.2 (10-20); Calcium 9.8 mg/dl (8.5-10.1); Creatinine Clr Calc Pharmacy 95.7 ml/min; Est GFR (African American) 117.4 ml/min; Est GFR (Non-African American) 101.3 ml/min; Magnesium 1.4 mg/dl (1.7-2.4); Phosphorus 3.6 mg/dl (2.5-4.9); Potassium 4.1 mmol/L (3.5-5.1)
[2022-02-04] MEDS: SUCRALFATE 1 GM/10 ML UDC PEG SCH ×4 (10:26→21:42)
[2022-02-04] MEDS: guaiFENesin SUGAR FREE 200 MG/10 ML UDC PEG SCH ×4 (10:26→21:43)
[2022-02-04] MEDS: RILUZOLE 50 MG PEG SCH ×2 (10:26→21:49)
[2022-02-04] MEDS: FAMOTIDINE SUSP 40 MG/5 ML UDP NG SCH (10:27)
[2022-02-04] MEDS: GLYCOPYRROLATE 1 MG TAB PO SCH ×3 (10:27→21:45)
[2022-02-04] MEDS: ASCORBIC ACID 500 MG TAB PEG SCH (10:27)
[2022-02-04] MEDS: SACCHAROMYCES BOULARDII 250 MG CAP PO SCH (10:28)
[2022-02-04] MEDS: LANSOPRAZOLE 30 MG SOLTAB PEG SCH ×2 (10:28→21:43)
[2022-02-04] MEDS: LOSARTAN POTASSIUM 50 MG TAB PEG SCH (10:28)
[2022-02-04] MEDS: SIMETHICONE 80 MG CHEW PO PRN (11:28)
[2022-02-04] MEDS: GABAPENTIN 250 MG/5 ML 470 ML BTL PO SCH ×3 (11:28→22:06)
[2022-02-04] MEDS: hydrOXYzine HCl 25 MG TAB PEG SCH ×3 (13:10→21:45)
[2022-02-04] MEDS: DICYCLOMINE HCL 20 MG TAB PEG PRN (13:38)
--- NOTE | 2022-02-04 15:09 | Hospitalist Progress Note ---
Date of Service February 04, 2022 Assessment & Plan (1) Complicated UTI (urinary tract infection): Plan: #. CAUTI Patient was tested for UTI a week ago for increasing belly pain and being delirious. Patient has indwelling catheter. Urine clx 01/23 with Ecoli- sensitive to cephalosporins and meropenem. Patient was started on nitrofurantoin [documented allergy, but has used earlier this month] a day prior to arrival. Patient comes in with worsening nausea and feeling sick because of nitrofurantoin. Patient admitted for IV antibiotic. Urine analysis suggestive of UTI but ruine clx 01/27 not definitive Patient was started on meropenem 01/27 in the ED, developed hives on the night of 01/28 switched to cefepime 01/29 and transitioned to rocephin 02/01 until tonight 02/04 Kenny was already changed this admission after few days of IV ABx, so need to change- recommend at least monthly kenny replacement and good kenny care to prevent recurrent CAUTIs. #. Recent diagnosis of C diff currently under vanc po c/w home vanc until a week after antibiotic completion given her recurrent C diff admitting C diff test negative for c diff toxin. #. Other chronic medical conditions: ALS, PEG tube feeding ALS care including suction, anticholinergics, riluzole. Dietitian consult for PEG tube feeding. per prior hospitalist: 01/29: d/w pt's at bedside. Updated the course and prognosis and vicious cycle of UTI/c diff in the patient. Also explained the need for balance between use of pain meds/anti cholinergics and patient's comfort/side effects from these meds. He voice understanding. Upon discussion about the code status, both patient and her want DNR/DNI. Also, we touched a topic of palliative care and hospice. They are not interested in hospice and had cancelled recent palliative care encounters. 01/29: d/w Pt's OP palliative care Dr. Macias, recommended to get in touch w/ shital Cortez ([phone]) for information/palliative questions. DVT prophylaxis: Heparin subcu Dispo- discharge tomorrow home- completing iv ABx tonight for CAUTI. Patient and family not interested in hospice per prior hospitalist. Admission and Anticipated Discharge Date Admission Date: January 27, 2022 Subjective Feels okay. States she is having lots of loose mushy stools but no lolly diarrhea- asking for something to improve it- okay with resuming her home cholestyramine. Breathing was rough last night but improved after the vest and expectoration of large phlegm. Feels good today. Recommended chest percussions. Daughter at bedside and asking how to prevent further UTIs. She also says she does not really see a point of hospice at this point as they are essentially doing what hospice would do at home and that they would like to bring her back if she has more UTIs. Physical Exam Physical Exam: General: Lying comfortably in bed, not in distress, on NC HEENT: EOMI, ALONDRA, MMM Chest:Fair breath sounds anteriorly CVS: Regular rate and rhythm, normal heart sounds, no murmur Abdomen: Soft, non tender, not distended, normal bowel sounds, PEG tube in place getting tube feeding Neuro: Awake, alert, oriented, conversing well. Left sided flaccid weakness. Extremities: No edema Kenny in place with yellow urine Results & Data Results & Data ([facility]) Vital Signs (Past 12 Hours) Vital Signs Temp Pulse Resp BP Pulse Ox 02/04/22 08:04 36.6 C 84 19 155/64 H 96 Laboratory Results Short CBC 02/04/22 Range/Units 08:55 WBC 6.79 (4.8-10.8) K/uL Hgb 11.1 L (12.0-16.0) g/dL Hct 35.1 L (37-47) % Plt Count 267 (130-400) K/uL BMP 02/04/22 08:55 Sodium 135 L Potassium 4.1 Chloride 98 Carbon Dioxide 30 BUN 18 Creatinine 0.39 L Glucose 125 H Calcium 9.8 Medications Administered Current Inpatient Medications Albuterol (Albuterol 0.083% Nebu Soln 3 Ml Vial) 2.5 mg INH Q4H PRN; Protocol PRN Reason: Wheezing Stop: 02/26/22 21:30 Last Admin: 01/28/22 22:55 Dose: 2.5 mg Documented by: Ascorbic Acid (Ascorbic Acid 500 Mg Tab) 500 mg PEG QAM [facility] Stop: 02/27/22 08:59 Last Admin: 02/04/22 10:27 Dose: 500 mg Documented by: Calamine/Phenol (Menthol-Zinc Oxide 360 Appln/120 Gm Tube) 1 appln EXT QID PRN PRN Reason: sores Stop: 02/26/22 21:30 Cetirizine HCl (Cetirizine Hcl 10 Mg Tablet) 10 mg PO DAILY PRN PRN Reason: Allergy Symptoms Stop: 02/27/22 00:26 Cholestyramine Resin (Cholestyramine Light 4 Gm Pkt) 2 - 4 gm PEG BID PRN PRN Reason: Stool Bulking Stop: 02/26/22 23:56 Cholestyramine Resin (Cholestyramine Light 4 Gm Pkt) 4 gm PO BID@1000,2200 [facility] Stop: 03/06/22 21:59 Dicyclomine HCl (Dicyclomine Hcl 20 Mg Tab) 20 mg PEG Q6H PRN PRN Reason: Diarrhea Stop: 02/26/22 21:30 Last Admin: 02/04/22 13:38 Dose: 20 mg Documented by: Diphenhydramine HCl (Diphenhydramine Hcl 25 Mg/10 Ml Udc) 25 - 50 mg PEG DAILY PRN PRN Reason: Allergy Symptoms Stop: 02/26/22 23:57 Enteral Nutritional Formula (Fibersource Hn 1.2 Kavon 1000 Ml Bag) 1,000 ml GT UD [facility]; Protocol Stop: 02/26/22 20:29 Last Admin: 02/03/22 13:02 Dose: 1,000 ml Documented by: Famotidine (Famotidine Susp 40 Mg/5 Ml Udp) 40 mg NG QAM [facility] Stop: 02/27/22 08:59 Last Admin: 02/04/22 10:27 Dose: 40 mg Documented by: Fentanyl (Fentanyl 25 Mcg/Hr Tdsy) 25 mcg TD Q3D@2100 [facility] Stop: 02/10/22 22:59 Last Admin: 02/02/22 21:09 Dose: 25 mcg Documented by: Fluticasone Propionate (Fluticasone Propionate Na Spr 16 Gm Btl) 2 sprays NA DAILY PRN PRN Reason: Allergy Symptoms Stop: 02/26/22 21:30 Gabapentin (Gabapentin 250 Mg/5 Ml 470 Ml Btl) 100 mg PO TID [facility] Stop: 02/26/22 21:30 Last Admin: 02/04/22 13:43 Dose: 100 mg Documented by: Glycopyrrolate (Glycopyrrolate 1 Mg Tab) 1 mg PO TID [facility] Stop: 03/04/22 20:59 Last Admin: 02/04/22 13:39 Dose: 1 mg Documented by: Guaifenesin (Guaifenesin Sugar Free 200 Mg/10 Ml Udc) 400 mg PEG 090 0,1300,1700,2100 [facility] Stop: 02/27/22 12:59 Last Admin: 02/04/22 13:39 Dose: 400 mg Documented by: Hydrocortisone (Hydrocortisone Hc 2.5% Crm 30gm Tube) 1 appln EXT BID PRN PRN Reason: Hemorrhoids Stop: 02/26/22 21:30 Hydromorphone HCl (Hydromorphone Hcl 2 Mg Tab) 1 mg PO Q4H PRN PRN Reason: pain Stop: 02/10/22 21:30 Last Admin: 01/29/22 10:26 Dose: 1 mg Documented by: Hydromorphone HCl (Hydromorphone Inj 1 Mg/Ml Syringe) 1 mg IV Q6H PRN PRN Reason: Severe Pain Stop: 02/12/22 13:35 Last Admin: 02/04/22 08:26 Dose: 1 mg Documented by: Hydroxyzine HCl (Hydroxyzine Hcl 25 Mg Tab) 25 mg PEG TID [facility] Stop: 03/04/22 14:59 Last Admin: 02/04/22 13:39 Dose: 25 mg Documented by: Hyoscyamine (Hyoscyamine Sulfate 0.125 Mg Tab) 0.125 mg PO DAILY PRN PRN Reason: abdominal cramps Stop: 02/27/22 00:02 Ceftriaxone Sodium 1,000 mg/ (Dextrose) 60 mls @ 120 mls/hr IV Q24H [facility] Stop: 02/08/22 23:59 Last Infusion: 02/03/22 20:55 Dose: Infused Documented by: Lansoprazole (Lansoprazole 30 Mg Soltab) 30 mg PEG BID [facility] Stop: 02/26/22 21:30 Last Admin: 02/04/22 10:28 Dose: 30 mg Documented by: Levothyroxine Sodium (Levothyroxine Sodium 112 Mcg Tablet) 112 mcg PO DAILYBB [facility] Stop: 02/27/22 06:29 Last Admin: 02/04/22 05:26 Dose: 112 mcg Documented by: Lidocaine (Lidocaine 5% 1 Patch) 1 patch TD DAILY PRN PRN Reason: Pain Stop: 02/26/22 21:30 Lorazepam (Lorazepam 1 Mg Tab) 1 mg PEG QID PRN PRN Reason: Anxiety Stop: 02/26/22 21:30 Last Admin: 02/02/22 14:02 Dose: 1 mg Documented by: Losartan Potassium (Losartan Potassium 50 Mg Tab) 100 mg PEG QAM [facility] Stop: 02/27/22 08:59 Last Admin: 02/04/22 10:28 Dose: 100 mg Documented by: Mirtazapine (Mirtazapine Tab 15 Mg Tab) 7.5 mg GT HS PRN PRN Reason: Sleep Stop: 02/26/22 21:30 Miscellaneous (Fentanyl Patch Remove & Waste) 1 ea N/A Q3D@2058 [facility] Stop: 02/26/22 22:58 Last Admin: 02/02/22 21:09 Dose: 1 ea Documented by: Katianeous (Check Fentanyl Patch Placement) 1 ea N/A QS [facility] Stop: 02/27/22 00:00 Last Admin: 02/04/22 10:04 Dose: 1 ea Documented by: Debcellaneous (Remove Lidoderm Patch) 1 ea N/A DAILY@2100 [facility] Stop: 02/26/22 21:30 Last Admin: 02/03/22 20:33 Dose: Not Given Documented by: Miscellaneous (Remove Transderm-Scop Patch) 1 ea N/A Q72H [facility] Stop: 03/06/22 16:29 Riluzole 50 Mg - (Patient's Own Med) 1 ea PEG BID [facility] Stop: 02/26/22 21:30 Last Admin: 02/04/22 10:26 Dose: 50 mg Documented by: Ondansetron HCl (Ondansetron Inj 2 Mg/Ml 2 Ml Vial) 4 mg IV Q6H PRN PRN Reason: Nausea Stop: 02/26/22 17:53 Last Admin: 02/04/22 08:27 Dose: 4 mg Documented by: Ondansetron HCl (Ondansetron 4 Mg Od Tab) 4 mg PEG Q6H PRN PRN Reason: Nausea And Vomiting Stop: 02/26/22 23:56 Last Admin: 02/03/22 09:44 Dose: 4 mg Documented by: Saccharomyces Boulardii (Saccharomyces Boulardii 250 Mg Cap) 250 mg PO QAM [facility] Stop: 02/27/22 08:59 Last Admin: 02/04/22 10:28 Dose: 250 mg Documented by: Scopolamine (Scopolamine 1 Mg Tdsy) 1 mg TD Q72H [facility] Stop: 03/03/22 16:29 Last Admin: 02/01/22 18:04 Dose: 1 mg Documented by: Simethicone (Simethicone 80 Mg Chew) 80 mg PO DAILY PRN PRN Reason: excessive gas Stop: 02/26/22 21:30 Last Admin: 02/04/22 11:28 Dose: 80 mg Documented by: Sterile Water (Tube Feeding Water Flush) 100 ml GT Q4H [facility] Stop: 02/26/22 20:44 Last Admin: 02/04/22 13:39 Dose: 100 ml Documented by: Sucralfate (Sucralfate 1 Gm/10 Ml Udc) 1 gm PEG QID [facility] Stop: 02/26/22 21:30 Last Admin: 02/04/22 13:39 Dose: 1 gm Documented by: Vancomycin HCl (Vancomycin Hcl 125 Mg/2.5ml Soln) 125 mg PEG Q6 [facility] Stop: 02/07/22 00:00 Last Admin: 02/04/22 11:28 Dose: 125 mg Documented by:
[2022-02-04] MEDS: SCOPOLAMINE 1 MG TDSY TD SCH (18:16)
[2022-02-04] MEDS: FIBERSOURCE HN 1.2 CAL 1000 ML BAG GT SCH (18:29)
[2022-02-04] MEDS: cefTRIAXone SODIUM 1,000 MG in DEXTROSE 5% 50 ML IV SCH (21:38)
[2022-02-04] MEDS: CHOLESTYRAMINE LIGHT 4 GM PKT PO SCH (21:48)
[2022-02-05] MEDS: TUBE FEEDING WATER FLUSH GT SCH ×4 (01:24→15:55)
[2022-02-05] MEDS: VANCOMYCIN HCL 125 MG/2.5ML SOLN PEG SCH ×2 (05:46→15:55)
[2022-02-05] MEDS: HYDROmorphone HCL 2 MG TAB PO PRN ×2 (05:46→09:51)
[2022-02-05] MEDS: LEVOTHYROXINE SODIUM 112 MCG TABLET PO SCH (05:46)
--- NOTE | 2022-02-05 08:12 | Discharge Summary ---
Date of Service February 05, 2022 Admission HPI Per Admitting Provider Chief Complaint: UTI, for IV antibiotics Primary Care Provider: Devonte Sweeney DO 76 year old female with h/o progressive ALS s/p PEG tube, recurrent C diff, CILD, HTN, Hypothyroidism, who presented to the ED 01/27 for UTI needing IV antibiotic. Patient's was at bedside, apparently patient was tested for UTI a week ago for worsening belly pain and being delirious per patient's . Patient corroborates. Since the articulation from patient is not very clear, history was mainly taken from the patient's to which patient corroborated. The results of the UTI came back yesterday and patient was allergic to oral options which were sulfa/Macrodantin/cephalosporins. She was prescribed nitrofurantoin despite history of allergy. Of note, patient was on Macrobid earlier this month as well. But patient comes in with increasing nausea and feeling sick after being started on nitrofurantoin. Patient denies any fever/headache/dizziness. Patient complains of ongoing secretion for which she continuously suctions. Patient complains of low belly pain. Patient has indwelling urinary catheter which was exchanged in the ED, urine culture has been sent again. Patient started on meropenem in the ED, will continue with the same. She does complain of ongoing respiratory problems including shortness of breath which is on and off because of her progressive ALS. She uses 2 L oxygen at home on and off and especially during sleep. Patient is continuing her p.o. vancomycin for recent C. difficile, to be completed on 28 January. She is being admitted for IV antibiotic for her UTI. Admission Exam Per Admitting Provider GENERAL: Alert and oriented x3. NAD, on 2L NC. HEENT: No pallor, no icterus. Pupils equal, round and reactive to light. Oral mucosa moist. NECK: No JVD, no neck masses. HEART: S1 and S2 heard. Regular rate and rhythm. No murmur, no gallop. RESPIRATORY SYSTEM: Normal AP diameter. No accessory muscle use. No wheezing, no crackles, decreased breath sounds ABDOMEN: Soft, bowel sounds present, nontender, no distention. PEG tube in place. Port of entry healthy w/o signs of infection. CENTRAL NERVOUS SYSTEM: No facial droop. Speech is clear. Obeys simple commands. EXTREMITIES: No edema, no erythema seen Principal Diagnosis CAUTI, ALS Discharge Exam General: Lying comfortably in bed, not in distress, on NC HEENT: EOMI, ALONDRA, MMM Chest:Fair breath sounds anteriorly CVS: Regular rate and rhythm, normal heart sounds, no murmur Abdomen: Soft, non tender, not distended, normal bowel sounds, PEG tube in place getting tube feeding Neuro: Awake, alert, oriented, conversing well. Left sided flaccid weakness. Extremities: No edema Kenny in place with nick urine Discharge Data Allergies Allergy/AdvReac Type Severity Reaction Status Date / Time Iodinated Contrast Media Allergy Severe dyspnea Verified 01/27/22 15:43 azithromycin Allergy Intermediate rash Verified 01/27/22 15:43 cefaclor Allergy Intermediate hives Verified 01/29/22 14:03 erythromycin base Allergy Intermediate hives Verified 01/27/22 15:43 levalbuterol Allergy Intermediate chest pain Verified 01/27/22 15:43 minocycline Allergy Intermediate rash Verified 01/27/22 15:43 nitrofurantoin Allergy Intermediate possible Verified 01/27/22 15:43 hives or dyspnea phenazopyridine Allergy Intermediate dyspnea Verified 01/27/22 15:43 Sulfa (Sulfonamide Allergy Intermediate hives Verified 01/27/22 15:43 Antibiotics) oxycodone [From OxyContin] Allergy Unknown Unverified 01/27/22 15:43 meropenem AdvReac Severe Hives Verified 01/29/22 14:04 metronidazole AdvReac Intermediate GI symptoms Verified 01/27/22 15:43 morphine AdvReac Intermediate vomiting Verified 01/27/22 15:43 levofloxacin AdvReac Mild abdominal Verified 01/27/22 15:43 pain albuterol [From Ventolin HFA] AdvReac Chest Pain Unverified 01/27/22 15:43 iodine AdvReac Anaphylaxis Unverified 01/27/22 15:43 tramadol AdvReac Confusion Unverified 01/27/22 15:43 Consultations 01/27/22 17:23 ED Decision to Admit Stat Hospital Course (1) Complicated UTI (urinary tract infection): #. CAUTI Patient was tested for UTI a week ago for increasing belly pain and being delirious. Patient has indwelling catheter. Urine clx 01/23 with Ecoli- sensitive to cephalosporins and meropenem. Patient was started on nitrofurantoin [documented allergy, but has used earlier this month] a day prior to arrival. Patient comes in with worsening nausea and feeling sick because of nitrofurantoin. Patient admitted for IV antibiotic. Urine analysis suggestive of UTI but ruine clx 01/27 not definitive Patient was started on meropenem 01/27 in the ED, developed hives on the night of 01/28 switched to cefepime 01/29 and transitioned to rocephin 02/01 until 02/04 9 pm. Kenny was already changed this admission after few days of IV ABx, so need to change- recommend at least monthly kenny replacement and good kenny care to prevent recurrent CAUTIs. #. Recent diagnosis of C diff currently under vanc po- admitting C diff test negative for c diff toxin. #. Other chronic medical conditions: ALS, PEG tube feeding ALS care including suction, anticholinergics, riluzole. Discussed about chest physiotherapy- RT taught patients about chest percussions- is going to check with the ALS agency if she can get a vest for effective chest physiotherapy Dietitian consult for PEG tube feeding. per prior hospitalist: 01/29: d/w pt's at bedside. Updated the course and prognosis and vicious cycle of UTI/c diff in the patient. Also explained the need for balance between use of pain meds/anti cholinergics and patient's comfort/side effects from these meds. He voice understanding. Upon discussion about the code status, both patient and her want DNR/DNI. Also, we touched a topic of palliative care and hospice. They are not interested in hospice and had cancelled recent palliative care encounters. 01/29: d/w Pt's OP palliative care Dr. Macias, recommended to get in touch w/ [facility] ([phone]) for information/palliative questions. Stable for discharge home. Discussed discharge plan with at bedside and answered all questions Home Health Attestation I certify that this patient is under my care and that I, or a physicians acute care nursing assistant working with me, had a face to-face encounter that meets the home health [id number] encounter requirements with this patient. The encounter with the patient was in whole, or in part, for the following medical condition, which is the primary reason for home health care (list medical condition): I certify that, based on my findings, the following services are medically necessary home health services: My clinical findings support the need for the above services because: Further, I certify that my clinical findings support that this patient is h omebound (i.e. absences from home require considerable and taxing effort and are for medical reasons or sikhism services or infrequently or of short duration when for other reasons) because: Certification for Home Health Services: Based on the above findings, I certify that this patient is confined to the home and needs intermittent nursing home care, physical therapy and/or speech therapy or continues to need occupational therapy. The patient is under my care, and I have initiated the establishment of the plan of care. This patient will be followed by a physician who will periodically review the plan of care. Total Time Total Time Spent Total Time Spent (In Minutes): 40 Discharge Plan Discharge Items Patient Disposition: Home - Self-Care Reason For Visit: UTI Discharge Diagnosis: CAUTI Activity: Resume your previous activity Non-emergency contact: Primary Care Provider Call non-emergency contact if: you have any medication questions, your symptoms worsen and you have a fever Follow-up/Referrals: Devonte Sweeney DO [Primary Care Provider] - Diet: Nothing by Mouth Addtl Attending Provider Instructions: Continue the catheter care- get changed at least once a month. Continue your medications Continue the chest percussions/physiotherapy to help clear the chest. Recommend vest therapy if able to get. Follow up with your family doctor Pending Studies at Discharge: No Stand-Alone Forms: My [facility] [employer], Smoking Cessation Medications and DC Order Prescriptions: Continued losartan 50 mg tablet 100 mg feeding tube QAM RF: 0 glycopyrrolate 2 mg tablet 2 mg feeding tube TID RF: 0 levothyroxine 112 mcg tablet 112 mcg feeding tube DAILYBB RF: 0 hydroxyzine HCl 25 mg tablet 25 mg feeding tube TID PRN (Reason: Itching) RF: 0 riluzole 50 mg tablet 50 mg feeding tube BID RF: 0 hydrocortisone 2.5 % cream with perineal applicator 1 applic MS BID PRN (Reason: Hemorrhoids) RF: 0 hyoscyamine sulfate 0.125 mg tablet, sublingual 0.125 mg feeding tube DAILY PRN (Reason: abdominal cramps) RF: 0 gabapentin 100 mg capsule 100 mg feeding tube TID RF: 0 famotidine 40 mg/5 mL (8 mg/mL) suspension 40 mg feeding tube QAM RF: 0 lorazepam 1 mg tablet 1 mg feeding tube QID PRN (Reason: Anxiety) RF: 0 fluticasone propionate 50 mcg/actuation spray,suspension 2 spray INTRANASAL DAILY PRN (Reason: Allergy Symptoms) RF: 0 simethicone 80 mg Tablet,Chewable 80 mg feeding tube DAILY PRN (Reason: excessive gas) RF: 0 cholestyramine (with sugar) 4 gram powder in packet 0.5 - 1 ea feeding tube BID PRN (Reason: Stool Bulking) RF: 0 mirtazapine 7.5 mg tablet 7.5 mg feeding tube HS PRN (Reason: Sleep) RF: 0 Guaifenesin 400mg/20ml 20 ml feeding tube Q4H PRN (Reason: mucus) RF: 0 nystatin 100,000 unit/mL suspension 10 ml PO TID PRN (Reason: mouth sores) RF: 0 sucralfate 100 mg/mL suspension 1 g PO QID RF: 0 Saccharomyces boulardii [Florastor] 250 mg capsule 250 mg feeding tube QAM RF: 0 hydromorphone [Dilaudid] 2 mg tablet 1 mg feeding tube Q4H PRN (Reason: pain) RF: 0 methenamine hippurate 1 gram Tablet 1 g PO BID Qty: 60 RF: 0 vancomycin 125 mg capsule 125 mg PO DIRECTED Qty: 21 RF: 0 diphenhydramine HCl [Benadryl Allergy] 25 mg Tablet 25 - 50 mg PO DAILY PRN (Reason: Allergy Symptoms) RF: 0 fentanyl 25 mcg/hr patch 72 hour 25 mcg transdermal Q72H RF: 0 ascorbic acid (vitamin C) [Vitamin C] 500 mg tablet 500 mg feeding tube QAM RF: 0 lidocaine 5 % Adhesive Patch,Medicated 1 patch TOPICAL DAILY PRN (Reason: Pain) RF: 0 scopolamine base 1 mg over 3 days patch 3 day 1 patch transdermal Q3D RF: 0 albuterol sulfate 2.5 mg /3 mL (0.083 %) solution for nebulization 2.5 mg inhalation Q4H PRN (Reason: Wheezing) RF: 0 ondansetron HCl 4 mg tablet 4 mg feeding tube Q6H RF: 0 dicyclomine 20 mg tablet 20 mg feeding tube Q6H PRN (Reason: Diarrhea) RF: 0 levocetirizine [Xyzal] 5 mg Tablet 5 mg feeding tube DAILY PRN (Reason: Allergy Symptoms) RF: 0 menthol-zinc oxide [Calmoseptine] 0.44-20.6 % Ointment 1 applic TOPICAL QID PRN (Reason: sores) RF: 0 Probiotic 3 billion cell Capsule 0 mmu cells feeding tube HS RF: 0 lansoprazole 30 mg tablet,disintegrat, delay rel 30 mg feeding tube BID Qty: 0 RF: 0 Discontinued nitrofurantoin monohyd/m-cryst 100 mg capsule 100 mg PO BID RF: 0 Discharge Orders: Discharge Order (Routine); Ordered 02/05/22 Ordered By: Franc Osborn/Other Patient Handouts: What Is Hospice?, Starting Hospice, For Caregivers: Coping Tips, Kenny Catheter Female Admission Data Admit Date/Time: 01/27/22 17:54 Attending Provider: Franc Araiza Admit Provider: Torres Rosen Primary Care Provider: Devonte Sweeney Other Providers: Torres Rosen ; [place] Other Interventions: Discharge Summary Assessment (RN) Last Done: 02/05/22 16:11
[2022-02-05] MEDS: guaiFENesin SUGAR FREE 200 MG/10 ML UDC PEG SCH ×2 (09:28→15:55)
[2022-02-05] MEDS: SUCRALFATE 1 GM/10 ML UDC PEG SCH ×2 (09:28→15:55)
[2022-02-05] MEDS: RILUZOLE 50 MG PEG SCH (09:28)
[2022-02-05] MEDS: ASCORBIC ACID 500 MG TAB PEG SCH (09:29)
[2022-02-05] MEDS: FAMOTIDINE SUSP 40 MG/5 ML UDP NG SCH (09:30)
[2022-02-05] MEDS: LANSOPRAZOLE 30 MG SOLTAB PEG SCH (09:30)
[2022-02-05] MEDS: hydrOXYzine HCl 25 MG TAB PEG SCH ×2 (09:30→15:54)
[2022-02-05] MEDS: GLYCOPYRROLATE 1 MG TAB PO SCH ×2 (09:30→15:54)
[2022-02-05] MEDS: SACCHAROMYCES BOULARDII 250 MG CAP PO SCH (09:31)
[2022-02-05] MEDS: LOSARTAN POTASSIUM 50 MG TAB PEG SCH (09:31)
[2022-02-05] MEDS: CHECK fentaNYL PATCH PLACEMENT SCH (09:32)
[2022-02-05] MEDS: GABAPENTIN 250 MG/5 ML 470 ML BTL PO SCH ×2 (09:36→15:55)
[2022-02-05] MEDS: ONDANSETRON 4 MG OD TAB PEG PRN (09:51)
[2022-02-05] MEDS: CHOLESTYRAMINE LIGHT 4 GM PKT PO SCH (11:08)
[2022-02-05] MEDS: DICYCLOMINE HCL 20 MG TAB PEG PRN (15:54)
== END 2022-02-05 16:47 | disposition home health service (06) | DRG 699 ==
LOC: ED 14:07 → 3N 17:54 → SUATTDRO 17:54 → 3N 22:10

== ENCOUNTER 2022-02-25 15:32 | Inpatient (IN) ==
--- NOTE | 2022-02-25 17:19 | CT Scan Report ---
CT SCAN OF THE BRAIN WITHOUT IV CONTRAST CLINICAL HISTORY: Change in mental status. COMPARISON STUDY: CT of the brain dated 01/10/2022. TECHNIQUE: Unenhanced axial CT scan of the brain is performed from the vertex to the skull base. A do se lowering technique was utilized adhering to the principles of ALARA. CT DOSE: 749.40 mGy.cm FINDINGS: Brain parenchyma: There is age-related involutional change noting mild to moderate subcortical and pe riventricular microangiopathic disease. There is no hemorrhage, mass effect, or evidence of acute ter ritorial ischemia by CT criteria. Ballard-white matter differentiation is preserved. No extra-axial flui d collection is seen. Ventricles, sulci, cisterns: Prominent secondary to involutional change. Intracranial vasculature: There is atherosclerotic calcification of the cavernous carotid and vertebr al arteries. Calvarium: Unremarkable. Sinuses and mastoids: The paranasal sinuses are clear. The mastoid air cells are well pneumatized. Orbits: The bony orbits are grossly intact. IMPRESSION: There is no hemorrhage, mass effect, or evidence of acute territorial ischemia by CT chung pedro. ACT 112: Negative or not required by law. Electronically signed by: Jeremiah Estrella M.D. 02/25/2022 5:18 PM
[2022-02-25 17:26] LABS: Basophils # (auto) 0.02 K/uL (0-0.2); Basophils % (auto) 0.3 %; Eosinophils # (auto) 0.16 K/uL (0-0.5); Eosinophils % (auto) 2.6 %; Hemoglobin 11.2 g/dL (12.0-16.0); Immature Granulocytes # (auto) 0.01 K/uL (0.00-0.02); Immature Granulocytes % (auto) 0.2 %; Lymphocytes # (auto) 1.02 K/uL (1.2-3.4); Lymphocytes % (auto) 16.8 %; Mean Corpuscular Hemoglobin 26.4 pg (25-34); Mean Corpuscular Hgb Conc 31.1 g/dL (32-36); Mean Corpuscular Volume 84.9 fL (80-100); Mean Platelet Volume 10.7 fL (7.4-10.4); Monocytes # (auto) 0.44 K/uL (0.11-0.59); Monocytes % (auto) 7.2 %; Neutrophils # (auto) 4.42 K/uL (1.4-6.5); Neutrophils % (auto) 72.9 %; Platelet Count 305 K/uL (130-400); RDW Coefficient of Variation 13.5 % (11.5-14.5); RDW Standard Deviation 41.9 fL (36.4-46.3); Red Blood Count 4.24 M/uL (4.2-5.4); White Blood Count 6.07 K/uL (4.8-10.8)
[2022-02-25 17:33] LABS: Partial Thromboplastin Ratio 1.1; Partial Thromboplastin Time 29.1 Seconds (21.0-31.0); Prothrombin Time 10.3 Seconds (9.0-12.0)
[2022-02-25 17:37] LABS: Est GFR (African American) 108.2 ml/min; Est GFR (Non-African American) 93.4 ml/min; Potassium 4.3 mmol/L (3.5-5.1)
[2022-02-25 17:38] LABS: Albumin Globulin Ratio 1.4 (0.9-2); Albumin Level 3.6 gm/dl (3.4-5.0); Bilirubin,Total 0.3 mg/dl (0.2-1.0); Calcium 9.6 mg/dl (8.5-10.1); Creatinine Clr Calc Pharmacy 76.6 ml/min; Globulin 2.6 gm/dl (2.5-4.0); Magnesium 1.8 mg/dl (1.7-2.4); Total Protein 6.2 gm/dl (6.0-8.3)
[2022-02-25] MEDS ORDERED: SODIUM CHLORIDE 0.9% 1000ML 500 ML IV ONE (17:39)
[2022-02-25 17:44] LABS: Troponin I High Sensitivity 10.8 pg/ml (0-14)
[2022-02-25 18:04] LABS: Appearance Urine Cloudy (Clear); Bacteria Urine Automated 4+ (Negative); Bilirubin Urine Negative (Negative); Blood Urine Negative (Negative); Color Urine Yellow; Glucose Urine UA Negative (Negative); Ketones Urine Negative (Negative); Leukocyte Esterase Urine 3+ (Negative); Nitrite Urine Negative (Negative); Protein Urine Negative (Negative); RBC Urine Automated 0-4 /hpf (0-4); Specific Gravity Urine 1.007 (1.000-1.030); Urobilinogen Urine Negative (Negative); WBC Urine Automated >30 /hpf (0-5); pH Urine 7.5 (4.5-7.5)
[2022-02-25] MEDS ORDERED: diphenhydrAMINE 50 MG/ML VIAL IV STA (18:16)
--- NOTE | 2022-02-25 18:40 | XRay Report ---
KUB TUBE CHECK CLINICAL HISTORY: PEG tube placement. FINDINGS: An AP, portable, supine abdominal radiographs was obtained. Approximately 50 cc of Optiray 300 was then injected through the PEG tube and 2 additional images were obtained. Comparison is made to study dated 12/16/2021 and correlated with abdominal CT dated 01/10/2022. The initial image shows a gastrostomy tube projecting over the left upper quadrant. There is no bowel obstruction. Suture mater ial projects over the pelvis and there is mesh material projecting over the right groin. No evidence of intracranial free air is seen on these supine images. There are no abnormal abdominal calcificatio ns. The skeletal structures are osteopenic and appear intact. The injected contrast goes into the sto mach. No extraluminal contrast is seen. The heart is enlarged. IMPRESSION: 1. The gastrostomy tube is located in the stomach. 2. No extraluminal contrast is identified. 3. Nonobstructed bowel gas pattern. Electronically signed by: Jeremiah Estrella M.D. 02/25/2022 6:37 PM
--- NOTE | 2022-02-25 18:45 | XRay Report ---
SINGLE VIEW CHEST CLINICAL HISTORY: Sepsis. FINDINGS: An AP, portable, upright chest radiograph is compared to study dated 01/27/2022. The examina tion is degraded by portable technique and patient rotation. The heart is enlarged noting atheroscle rotic calcification of the thoracic aorta. The pulmonary vasculature is noncongested. Chronic interst itial thickening is similar to previous. Left basilar opacities are unchanged and likely represent at electasis. The lungs and pleural spaces are otherwise clear. No pneumothorax is seen. The skeletal st ructures are osteopenic. The bony thorax is grossly intact. Enteric contrast is noted in the stomach. IMPRESSION: 1. Cardiomegaly without radiographic evidence of congestive failure. 2. Left basilar opacities are unchanged from prior studies and likely represent atelectasis. Clinical correlation will be required. ACT 112: Negative or not required by law. Electronically signed by: Jeremiah Estrella M.D. 02/25/2022 6:43 PM
[2022-02-25 19:45] LABS: Cast Urine Automated 0 /lpf (0-5)
[2022-02-25] MEDS ORDERED: CEFEPIME 2,000 MG/20 ML VIAL IV STA (19:48)
[2022-02-25] MEDS ORDERED: PIPERACILLIN/TAZOBACTAM 4.5 GM/120 ML BAG IV ONE (21:19)
--- NOTE | 2022-02-25 21:20 | History & Physical Report ---
Date of Service February 25, 2022 Assessment & Plan (1) Encephalopathy: Plan: Multifactorial : Complicated UTI, hx recurrent UTIs on chronic methenamine suppression Rx/ chronic indwelling Rodriguez catheter/possible interstitial cystitis as per records, no sepsis for now Home neuropsychotropic meds/fentanyl patch contributory hypertension, slight elevated ALS, progressive disability PEG tube concerns PEG tube in place as per x-ray however not secure. hx aspiration with status post PEG tube placement breast cancer status post surgery, history DVT sp Xarelto chronic anemia, hemoglobin at baseline history recurrent C. difficile ongoing vancomycin course, treatment to be completed March 05 anxiety/mood disorder past tobacco abuse Medical telemetry CS, [place] on the basis of microbiologic history (enteric organisms, Enterococcus as per records) Hold neuropsychotropic meds for sedation confusion. Hold Fentanyl patch for now until patient more awake. GI consult Re: PEG tube concerns Palliative care consultation Re: Discuss goals of care/hospice (Family agreeable to input from specialist.) DVT prophylaxis. Lovenox subcu DNR Patient requesting updates from providers. Mr. Micky Quinn, contact #[phone]. Text document was generated using [employer] voice recognition software. It may contain grammatical or spelling errors. Kindly contact undersigned for clarification of any documentation item in question. History of Present Illness Chief Complaint: Feeding tube pulled out, altered mental status as per family Primary Care Provider: Devonte Sweeney, History obtained from patient, family, and records. From patient secondary to obtunded state. Medical history significant for hypertension, ALS, aspiration with status post PEG tube placement, chronic pain on fentanyl patch, breast cancer status post surgery, recurrent UTIs on chronic methenamine suppression Rx/ chronic indwelling Rodriguez catheter/possible interstitial cystitis as per records,history DVT sp Xarelto, chronic anemia (baseline hemoglobin 10-11), history recurrent C. difficile ongoing vancomycin course, anxiety/mood disorder, past tobacco abuse. Monthly [facility] confinements since October 2021. Last confinement January 27 to February 05, 2022 for community-acquired UTI in the setting of ALS. Recent confinement [facility] for February 15 to 2021 for altered mental status. Family brought patient to [facility] for ID specialty. UTI ruled out. Enteral vancomycin course for C. difficile extended until March 05, 2022. Family still not interested in hospice as per [facility] at home provider note. Today home health nurse noticed feeding tube was likely pulled out. Patient with episodes of agitation and pulling at tube as per family. Patient more confused than usual and slow to answer. Patient denies chest pain, SOB, abdominal pain complaints. Patient brought to the ER for evaluation. Cefepime given for possible UTI. 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 Allergies Allergy/AdvReac Type Severity Reaction Status Date / Time Iodinated Contrast Media Allergy Severe dyspnea Verified 02/25/22 20:53 azithromycin Allergy Intermediate rash Verified 02/25/22 20:53 cefaclor Allergy Intermediate hives Verified 02/25/22 20:53 erythromycin base Allergy Intermediate hives Verified 02/25/22 20:53 levalbuterol Allergy Intermediate chest pain Verified 02/25/22 20:53 minocycline Allergy Intermediate rash Verified 02/25/22 20:53 nitrofurantoin Allergy Intermediate possible Verified 02/25/22 20:53 hives or dyspnea phenazopyridine Allergy Intermediate dyspnea Verified 02/25/22 20:53 Sulfa (Sulfonamide Allergy Intermediate hives Verified 02/25/22 20:53 Antibiotics) oxycodone [From OxyContin] Allergy Unknown Unverified 02/25/22 20:53 meropenem AdvReac Severe Hives Verified 02/25/22 20:53 metronidazole AdvReac Intermediate GI symptoms Verified 02/25/22 20:53 morphine AdvReac Intermediate vomiting Verified 02/25/22 20:53 levofloxacin AdvReac Mild abdominal Verified 02/25/22 20:53 pain albuterol [From Ventolin HFA] AdvReac Chest Pain Unverified 02/25/22 20:53 iodine AdvReac Anaphylaxis Unverified 02/25/22 20:53 tramadol AdvReac Confusion Unverified 02/25/22 20:53 Home Medications Medication Instructions Recorded Confirmed Type losartan 50 mg tablet 100 mg FEEDING TUBE QAM 07/08/19 02/25/22 History lidocaine 5 % topical patch 1 patch TOPICAL DAILY PRN 07/22/21 02/25/22 History hydroxyzine HCl 25 mg tablet 25 mg FEEDING TUBE Q6 PRN 11/22/21 02/25/22 History levothyroxine 112 mcg tablet 112 mcg FEEDING TUBE DAILYBB 11/22/21 02/25/22 History riluzole 50 mg tablet 50 mg FEEDING TUBE BID 11/22/21 02/25/22 History albuterol sulfate 2.5 mg INHALATION Q4H PRN 12/16/21 02/25/22 History dicyclomine 20 mg tablet 20 mg FEEDING TUBE Q6H PRN 12/16/21 02/25/22 History lactobacillus combination no.4 3 0 mmu cells FEEDING TUBE HS 12/16/21 02/25/22 History billion cell capsule (Probiotic) levocetirizine 5 mg tablet (Xyzal) 5 mg FEEDING TUBE DAILY PRN 12/16/21 02/25/22 History menthol 0.44 %-zinc oxide 20.6 % 1 applic TOPICAL QID PRN 12/16/21 02/25/22 History topical ointment (Calmoseptine) ondansetron HCl 4 mg tablet 4 mg FEEDING TUBE Q6H 12/16/21 02/25/22 History lansoprazole 30 mg delayed 30 mg FEEDING TUBE BID #0 tab 12/28/21 02/25/22 Rx release,disintegrating tablet Guaifenesin 400mg/20ml 20 ml FEEDING TUBE Q4H PRN 01/10/22 02/25/22 History Saccharomyces boulardii 250 mg 250 mg FEEDING TUBE QAM 01/10/22 02/25/22 History capsule (Florastor) cholestyramine (with sugar) 4 gram 0.5 - 1 ea FEEDING TUBE BID PRN 01/10/22 02/25/22 History powder for susp in a packet famotidine 40 mg/5 mL (8 mg/mL) 40 mg FEEDING TUBE QAM 01/10/22 02/25/22 History oral suspension fluticasone propionate 50 2 spray INTRANASAL DAILY PRN 01/10/22 02/25/22 History mcg/actuation nasal spray,suspension gabapentin 100 mg capsule 100 mg FEEDING TUBE TID 01/10/22 02/25/22 History hydrocortisone 2.5 % topical cream 1 applic VA BID PRN 01/10/22 02/25/22 History with perineal applicator hydromorphone 2 mg tablet 1 mg FEEDING TUBE Q4H PRN 01/10/22 02/25/22 History (Dilaudid) hyoscyamine sulfate 0.125 mg 0.125 mg FEEDING TUBE Q4 PRN 01/10/22 02/25/22 History sublingual tablet lorazepam 1 mg tablet 1 mg FEEDING TUBE QID PRN 01/10/22 02/25/22 History mirtazapine 7.5 mg tablet 7.5 mg FEEDING TUBE HS PRN 01/10/22 02/25/22 History nystatin 100,000 unit/mL oral 10 ml PO TID PRN 01/10/22 02/25/22 History suspension simethicone 80 mg chewable tablet 160 mg FEEDING TUBE DAILY PRN 01/10/22 02/25/22 History methenamine hippurate 1 gram tablet 1 g PO BID #60 tab 01/17/22 02/25/22 Rx ascorbic acid (vitamin C) 500 mg 500 mg FEEDING TUBE QAM 01/27/22 02/25/22 History tablet (Vitamin C) diphenhydramine HCl 25 mg tablet 25 - 50 mg PO DAILY PRN 01/27/22 02/25/22 History (Benadryl Allergy) fentanyl 50 mcg/hr transdermal 50 mcg TRANSDERMAL [id number] 02/25/22 02/25/22 History patch glycopyrrolate 1 mg tablet 1 mg FEEDING TUBE TID 02/25/22 02/25/22 History vancomycin 50 mg/mL oral solution 250 mg PO Q6 02/25/22 02/25/22 History Past Med/Surg History Medical History ALS (amyotrophic lateral sclerosis) Cancer left breast (2015) s/p left lumpectomy/XRT, no chemo Cervical stenosis of spinal canal Diarrhea GERD (gastroesophageal reflux disease) controlled, stable. Patient sleeps elevated HS. 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) "Abnormal left breast mammogram Status post stereotactic biopsy 11/14/2015 revealing DCIS grade 1 Estrogen receptor positive and progesterone receptor positive Status post needle localization lumpectomy 12/20/2015 Stage pTis pNX Status post completion of radiation therapy 03/01/2016 received 3850 cGy utilizing accelerated partial breast irradiation." On 03/14/16 11:36 Ese Cabrera wrote "Abnormal left breast mammogram Status post stereotactic biopsy 11/14/2015 revealing DCIS grade 1 Estrogen receptor positive and progesterone receptor positive Status post needle localization lumpectomy 12/20/2015 Stage pTis pNX Status post completion of radiation therapy 03/01/2016 received 3850 cGy utilizing accelerated partial breast irradiation." On 02/01/16 11:23 Ese Cabrera wrote "Abnormal left breast mammogram Status post stereotactic biopsy 11/14/2015 revealing DCIS grade 1 Estrogen receptor positive and progesterone receptor positive Status post needle localization lumpectomy 12/20/2015 Stage pTis pNX" Lab test negative for COVID-19 virus Nausea Osteoarthritis Palliative care encounter SOB (shortness of breath) Surgical History H/O foot surgery R ORIF History of appendectomy History of carpal tunnel release R/L History of colectomy D/T DIVERTICULITIS History of colonoscopy MULTIPLE History of D&C D&C, hysteroscopy: 10/24/17: LMA# 4 at [facility] History of esophagogastroduodenoscopy (EGD) History of lumpectomy of left breast 2015 History of tonsillectomy S/P percutaneous endoscopic gastrostomy (PEG) tube placement Family History Mother Breast cancer Social History Smoking Status: Former smoker Tobacco Type: Cigarettes Second Hand Exposure: No; Hx Alcohol Use: No Hx Substance Use: No Preferred Language: Estonian Communication Ability: Impaired Communication Ability Comment: willis speech Shoulder Sawyer Required: No Beliefs That Will Affect Care: None marital status: Current Living Situation: Spouse and Family Current Living Situation Comment: and daughter Other Information That Helps Us Care for You: No Feels Safe at Home: Yes Safety Concerns: Feels Safe At This Time Assistive Devices: Review of Systems Review of Systems: Could not be reliably obtained secondary to obtunded state Physical Exam Physical Exam: GENERAL: Obtunded , no respiratory distress SKIN: Pallor, warm HEENT: Pale palpebral conjunctivae, no ptosis, dry buccal mucosa NECK : Supple, no tenderness CHEST : Decreased breath sounds, no tenderness HEART : RRR, no obvious murmurs ABDOMEN: Some distention, unsecured PEG tube in place EXTREMITIES : No LE swelling/tenderness, no other conspicuous deformities noted NEUROLOGIC : Obtunded, no facial asymmetry, gait and stance not assessed Results & Data Results & Data ([facility]) Vital Signs (Past 12 Hours) Vital Signs Temp Pulse Resp BP Pulse Ox 02/25/22 21:00 92 02/25/22 20:30 18 93 02/25/22 20:07 80 20 178/84 H 94 02/25/22 20:00 93 02/25/22 19:30 95 02/25/22 19:01 68 17 103/49 L 96 02/25/22 19:00 22 02/25/22 18:30 72 15 117/60 02/25/22 18:00 84 19 138/75 93 02/25/22 17:49 83 18 167/72 H 94 02/25/22 17:42 20 95 02/25/22 17:12 23 95 02/25/22 16:42 18 93 02/25/22 16:12 22 94 02/25/22 15:38 37.0 C 93 H 13 173/71 H 96 Laboratory Results Laboratory Results WBC 6.07 K/uL (4.8-10.8) 02/25/22 16:56 RBC 4.24 M/uL (4.2-5.4) 02/25/22 16:56 Hgb 11.2 g/dL (12.0-16.0) L 02/25/22 16:56 Hct 36.0 % (37-47) L 02/25/22 16:56 MCV 84.9 fL (80-100) 02/25/22 16:56 MCH 26.4 pg (25-34) 02/25/22 16:56 MCHC 31.1 g/dL (32-36) L 02/25/22 16:56 RDW Std Deviation 41.9 fL (36.4-46.3) 02/25/22 16:56 RDW Coeff of Marcela 13.5 % (11.5-14.5) 02/25/22 16:56 Plt Count 305 K/uL (130-400) 02/25/22 16:56 MPV 10.7 fL (7.4-10.4) H 02/25/22 16:56 Immature Gran % (Auto) 0.2 % 02/25/22 16:56 Neut % (Auto) 72.9 % 02/25/22 16:56 Lymph % (Auto) 16.8 % 02/25/22 16:56 [place] % (Auto) 7.2 % 02/25/22 16:56 Eos % (Auto) 2.6 % 02/25/22 16:56 Baso % (Auto) 0.3 % 02/25/22 16:56 Neut # (Auto) 4.42 K/uL (1.4-6.5) 02/25/22 16:56 Lymph # (Auto) 1.02 K/uL (1.2-3.4) L 02/25/22 16:56 [place] # (Auto) 0.44 K/uL (0.11-0.59) 02/25/22 16:56 Eos # (Auto) 0.16 K/uL (0-0.5) 02/25/22 16:56 Baso # (Auto) 0.02 K/uL (0-0.2) 02/25/22 16:56 Immature Gran # (Auto) 0.01 K/uL (0.00-0.02) 02/25/22 16:56 PT 10.3 Seconds (9.0-12.0) 02/25/22 16:56 INR 1.0 (0.9-1.1) 02/25/22 16:56 APTT 29.1 Seconds (21.0-31.0) 02/25/22 16:56 PTT Ratio 1.1 02/25/22 16:56 Sodium 136 mmol/L (136-145) 02/25/22 16:56 Potassium 4.3 mmol/L (3.5-5.1) 02/25/22 16:56 Chloride 97 mmol/L (98-107) L 02/25/22 16:56 Carbon Dioxide 34 mmol/L (21-32) H 02/25/22 16:56 Anion Gap 5 (3-11) 02/25/22 16:56 BUN 25 mg/dl (6-23) H 02/25/22 16:56 Creatinine 0.50 mg/dl (0.6-1.2) L 02/25/22 16:56 Est Cr Clr Drug Dosing 76.6 ml/min 02/25/22 16:56 Est GFR ( Amer) 108.2 ml/min 02/25/22 16:56 Est GFR (Non-Af Amer) 93.4 ml/min 02/25/22 16:56 BUN/Creatinine Ratio 50.0 (10-20) H 02/25/22 16:56 Glucose 107 mg/dl (70-99(Fasting)) H 02/25/22 16:56 Lactate 0.6 mmol/L (0.4-2.0) 02/25/22 16:56 Calcium 9.6 mg/dl (8.5-10.1) 02/25/22 16:56 Magnesium 1.8 mg/dl (1.7-2.4) 02/25/22 16:56 Total Bilirubin 0.3 mg/dl (0.2-1.0) 02/25/22 16:56 AST 15 U/L (13-39) 02/25/22 16:56 ALT 18 U/L (7-52) 02/25/22 16:56 Alkaline Phosphatase 83 U/L (34-104) 02/25/22 16:56 Troponin I High Sens 10.8 pg/ml (0-14) 02/25/22 16:56 Total Protein 6.2 gm/dl (6.0-8.3) 02/25/22 16:56 Albumin 3.6 gm/dl (3.4-5.0) 02/25/22 16:56 Globulin 2.6 gm/dl (2.5-4.0) 02/25/22 16:56 Albumin/Globulin Ratio 1.4 (0.9-2) 02/25/22 16:56 Procalcitonin 0.18 ng/ml (0-0.5) 02/25/22 16:56 Urine Color Yellow 02/25/22 17:42 Urine Appearance Cloudy (Clear) A 02/25/22 17:42 Urine pH 7.5 (4.5-7.5) 02/25/22 17:42 Ur Specific [place] 1.007 (1.000-1.030) 02/25/22 17:42 Urine Protein Negative (Negative) 02/25/22 17:42 Urine Glucose (UA) Negative (Negative) 02/25/22 17:42 Urine Ketones Negative (Negative) 02/25/22 17:42 Urine Blood Negative (Negative) 02/25/22 17:42 Urine Nitrite Negative (Negative) 02/25/22 17:42 Urine Bilirubin Negative (Negative) 02/25/22 17:42 Urine Urobilinogen Negative (Negative) 02/25/22 17:42 Ur Leukocyte Esterase 3+ (Negative) H 02/25/22 17:42 Urine WBC (Auto) >30 /hpf (0-5) H 02/25/22 17:42 Urine RBC (Auto) 0-4 /hpf (0-4) 02/25/22 17:42 U Hyaline Cast (Auto) 0 /lpf (0-5) 02/25/22 17:42 U Epithel Cells (Auto) 10-20 /lpf (0-5) H 02/25/22 17:42 Urine Bacteria (Auto) 4+ (Negative) H 02/25/22 17:42 Urine Yeast Present (None Prsent) A 02/25/22 17:42 SARS-CoV-2, RNA, NAAT NEGATIVE (NEGATIVE) 02/25/22 16:33 Impressions Chest X-Ray 02/25/22 16:12 SINGLE VIEW CHEST CLINICAL HISTORY: Sepsis. FINDINGS: An AP, portable, upright chest radiograph is compared to study dated 01/27/2022. The examination is degraded by portable technique and patient rotation. The heart is enlarged noting atherosclerotic calcification of the thoracic aorta. The pulmonary vasculature is noncongested. Chronic interstitial thickening is similar to previous. Left basilar opacities are unchanged and likely represent atelectasis. The lungs and pleural spaces are otherwise clear. No pneumothorax is seen. The skeletal structures are osteopenic. The bony thorax is grossly intact. Enteric contrast is noted in the stomach. IMPRESSION: 1. Cardiomegaly without radiographic evidence of congestive failure. 2. Left basilar opacities are unchanged from prior studies and likely represent atelectasis. Clinical correlation will be required. ACT 112: Negative or not required by law. Electronically signed by: Jeremiah Estrella M.D. 02/25/2022 6:43 PM KUB X-Ray 02/25/22 16:12 KUB TUBE CHECK CLINICAL HISTORY: PEG tube placement. FINDINGS: An AP, portable, supine abdominal radiographs was obtained. Approximately 50 cc of Optiray 300 was then injected through the PEG tube and 2 additional images were obtained. Comparison is made to study dated 12/16/2021 and correlated with abdominal CT dated 01/10/2022. The initial image shows a gastrostomy tube projecting over the left upper quadrant. There is no bowel obstruction. Suture material projects over the pelvis and there is mesh material projecting over the right groin. No evidence of intracranial free air is seen on these supine images. There are no abnormal abdominal calcifications. The skeletal structures are osteopenic and appear intact. The injected contrast goes into the stomach. No extraluminal contrast is seen. The heart is enlarged. IMPRESSION: 1. The gastrostomy tube is located in the stomach. 2. No extraluminal contrast is identified. 3. Nonobstructed bowel gas pattern. Electronically signed by: Jeremiah Estrella M.D. 02/25/2022 6:[address] 02/25/22 16:14 CT SCAN OF THE BRAIN WITHOUT IV CONTRAST CLINICAL HISTORY: Change in mental status. COMPARISON STUDY: CT of the brain dated 01/10/2022. TECHNIQUE: Unenhanced axial CT scan of the brain is performed from the vertex to the skull base. A dose lowering technique was utilized adhering to the principles of ALARA. CT DOSE: 749.40 mGy.cm FINDINGS: Brain parenchyma: There is age-related involutional change noting mild to moderate subcortical and periventricular microangiopathic disease. There is no hemorrhage, mass effect, or evidence of acute territorial ischemia by CT criteria. Ballard-white matter differentiation is preserved. No extra-axial fluid collection is seen. Ventricles, sulci, cisterns: Prominent secondary to involutional change. Intracranial vasculature: There is atherosclerotic calcification of the cavernous carotid and vertebral arteries. Calvarium: Unremarkable. Sinuses and mastoids: The paranasal sinuses are clear. The mastoid air cells are well pneumatized. Orbits: The bony orbits are grossly intact. IMPRESSION: There is no hemorrhage, mass effect, or evidence of acute territorial ischemia by CT criteria. ACT 112: Negative or not required by law. Electronically signed by: Jeremiah Estrella M.D. 02/25/2022 5:18 PM Diagnostic Findings EKG as per my interpretation: Rate 75, NSR, LAD, LAFB, incomplete RBBB, T wave flattening inferior and septal leads
[2022-02-25] MEDS ORDERED: METOPROLOL TARTRATE 1 MG/ML VIAL IV STA (21:21)
--- NOTE | 2022-02-25 22:43 | Emergency Department Note ---
History of Present Illness General Chief complaint: Feeding/PEG Tube Replacement Time Seen by Provider: 02/25/22 15:58 Source: family ( at bedside) Limitations: physical limitation History of Present Illness Provider complaint: PEG tube malfunction Onset (ago): day(s) 1 Location: abdomen Radiation: non-radiation Associated symptoms: no cough, no fever/chills, no nausea/vomiting or no seizure 76-year-old female with history of severe ALS presents emergency department with for PEG tube evaluation. states that the patient's home health care nurse came to the house today and was concerned that her PEG tube was out more than it usually is. The states that they are still able to push fluid through the PEG tube. The also reports that the patient has been more irritable anxious and altered than usual and the home health care nurse was concerned that the patient might have an infection such as a UTI. No recent falls. No fevers. No vomiting. Home Medications Medication Instructions Recorded Confirmed Type losartan 50 mg tablet 100 mg FEEDING TUBE QAM 07/08/19 02/25/22 History lidocaine 5 % topical patch 1 patch TOPICAL DAILY PRN 07/22/21 02/25/22 History hydroxyzine HCl 25 mg tablet 25 mg FEEDING TUBE Q6 PRN 11/22/21 02/25/22 History levothyroxine 112 mcg tablet 112 mcg FEEDING TUBE DAILYBB 11/22/21 02/25/22 History riluzole 50 mg tablet 50 mg FEEDING TUBE BID 11/22/21 02/25/22 History albuterol sulfate 2.5 mg INHALATION Q4H PRN 12/16/21 02/25/22 History dicyclomine 20 mg tablet 20 mg FEEDING TUBE Q6H PRN 12/16/21 02/25/22 History lactobacillus combination no.4 3 0 mmu cells FEEDING TUBE HS 12/16/21 02/25/22 History billion cell capsule (Probiotic) levocetirizine 5 mg tablet (Xyzal) 5 mg FEEDING TUBE DAILY PRN 12/16/21 02/25/22 History menthol 0.44 %-zinc oxide 20.6 % 1 applic TOPICAL QID PRN 12/16/21 02/25/22 History topical ointment (Calmoseptine) ondansetron HCl 4 mg tablet 4 mg FEEDING TUBE Q6H 12/16/21 02/25/22 History scopolamine base 1 mg over 3 days 1 patch TRANSDERMAL Q3D PRN 12/16/21 02/25/22 History transdermal patch lansoprazole 30 mg delayed 30 mg FEEDING TUBE BID #0 tab 12/28/21 02/25/22 Rx release,disintegrating tablet Guaifenesin 400mg/20ml 20 ml FEEDING TUBE Q4H PRN 01/10/22 02/25/22 History Saccharomyces boulardii 250 mg 250 mg FEEDING TUBE QAM 01/10/22 02/25/22 History capsule (Florastor) cholestyramine (with sugar) 4 gram 0.5 - 1 ea FEEDING TUBE BID PRN 01/10/22 02/25/22 History powder for susp in a packet famotidine 40 mg/5 mL (8 mg/mL) 40 mg FEEDING TUBE QAM 01/10/22 02/25/22 History oral suspension fluticasone propionate 50 2 spray INTRANASAL DAILY PRN 01/10/22 02/25/22 History mcg/actuation nasal spray,suspension gabapentin 100 mg capsule 100 mg FEEDING TUBE TID 01/10/22 02/25/22 History hydrocortisone 2.5 % topical cream 1 applic IN BID PRN 01/10/22 02/25/22 History with perineal applicator hydromorphone 2 mg tablet 1 mg FEEDING TUBE Q4H PRN 01/10/22 02/25/22 History (Dilaudid) hyoscyamine sulfate 0.125 mg 0.125 mg FEEDING TUBE Q4 PRN 01/10/22 02/25/22 History sublingual tablet lorazepam 1 mg tablet 1 mg FEEDING TUBE QID PRN 01/10/22 02/25/22 History mirtazapine 7.5 mg tablet 7.5 mg FEEDING TUBE HS PRN 01/10/22 02/25/22 History nystatin 100,000 unit/mL oral 10 ml PO TID PRN 01/10/22 02/25/22 History suspension simethicone 80 mg chewable tablet 160 mg FEEDING TUBE DAILY PRN 01/10/22 02/25/22 History methenamine hippurate 1 gram tablet 1 g PO BID #60 tab 01/17/22 02/25/22 Rx ascorbic acid (vitamin C) 500 mg 500 mg FEEDING TUBE QAM 01/27/22 02/25/22 History tablet (Vitamin C) diphenhydramine HCl 25 mg tablet 25 - 50 mg PO DAILY PRN 01/27/22 02/25/22 History (Benadryl Allergy) fentanyl 50 mcg/hr transdermal 50 mcg TRANSDERMAL [id number] 02/25/22 02/25/22 History patch glycopyrrolate 1 mg tablet 1 mg FEEDING TUBE TID 02/25/22 02/25/22 History vancomycin 50 mg/mL oral solution 250 mg PO Q6 02/25/22 02/25/22 History Allergies Allergy/AdvReac Type Severity Reaction Status Date / Time Iodinated Contrast Media Allergy Severe dyspnea Verified 02/25/22 20:53 azithromycin Allergy Intermediate rash Verified 02/25/22 20:53 cefaclor Allergy Intermediate hives Verified 02/25/22 20:53 erythromycin base Allergy Intermediate hives Verified 02/25/22 20:53 levalbuterol Allergy Intermediate chest pain Verified 02/25/22 20:53 minocycline Allergy Intermediate rash Verified 02/25/22 20:53 nitrofurantoin Allergy Intermediate possible Verified 02/25/22 20:53 hives or dyspnea phenazopyridine Allergy Intermediate dyspnea Verified 02/25/22 20:53 Sulfa (Sulfonamide Allergy Intermediate hives Verified 02/25/22 20:53 Antibiotics) oxycodone [From OxyContin] Allergy Unknown Unverified 02/25/22 20:53 meropenem AdvReac Severe Hives Verified 02/25/22 20:53 metronidazole AdvReac Intermediate GI symptoms Verified 02/25/22 20:53 morphine AdvReac Intermediate vomiting Verified 02/25/22 20:53 levofloxacin AdvReac Mild abdominal Verified 02/25/22 20:53 pain albuterol [From Ventolin HFA] AdvReac Chest Pain Unverified 02/25/22 20:53 iodine AdvReac Anaphylaxis Unverified 02/25/22 20:53 tramadol AdvReac Confusion Unverified 02/25/22 20:53 Past Med/Surg History Medical History ALS (amyotrophic lateral sclerosis) Cancer left breast (2016) s/p left lumpectomy/XRT, no chemo Cervical stenosis of spinal canal Diarrhea GERD (gastroesophageal reflux disease) controlled, stable. Patient sleeps elevated HS. 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) "Abnormal left breast mammogram Status post stereotactic biopsy 11/14/2015 revealing DCIS grade 1 Estrogen receptor positive and progesterone receptor positive Status post needle localization lumpectomy 12/20/2015 Stage pTis pNX Status post completion of radiation therapy 03/01/2016 received 3850 cGy utilizing accelerated partial breast irradiation." On 03/14/16 11:36 Ese Cabrera wrote "Abnormal left breast mammogram Status post stereotactic biopsy 11/14/2015 revealing DCIS grade 1 Estrogen receptor positive and progesterone receptor positive Status post needle localization lumpectomy 12/20/2015 Stage pTis pNX Status post completion of radiation therapy 03/01/2016 received 3850 cGy utilizing accelerated partial breast irradiation." On 02/01/16 11:23 Ese Cabrera wrote "Abnormal left breast mammogram Status post stereotactic biopsy 11/14/2015 revealing DCIS grade 1 Estrogen receptor positive and progesterone receptor positive Status post needle localization lumpectomy 12/20/2015 Stage pTis pNX" Lab test negative for COVID-19 virus Nausea Osteoarthritis Palliative care encounter SOB (shortness of breath) Surgical History H/O foot surgery R ORIF History of appendectomy History of carpal tunnel release R/L History of colectomy D/T DIVERTICULITIS History of colonoscopy MULTIPLE History of D&C D&C, hysteroscopy: 10/24/17: LMA# 4 at [facility] History of esophagogastroduodenoscopy (EGD) History of lumpectomy of left breast 2015 History of tonsillectomy S/P percutaneous endoscopic gastrostomy (PEG) tube placement Family History Mother Breast cancer Social History Smoking Status: Former smoker Tobacco Type: Cigarettes Second Hand Exposure: No; Hx Alcohol Use: No Hx Substance Use: No Preferred Language: Angolan Communication Ability: Impaired Optical Effects Line Up Person Required: No Beliefs That Will Affect Care: None marital status: Current Living Situation: Spouse and Family Current Living Situation Comment: and daughter Feels Safe at Home: Yes Assistive Devices: Oxygen - at Night and Walker Review of Systems Other (due to chronic neurological condition) Physical Exam Vital Signs Vital Signs - 24 hr 02/25/22 15:38 02/25/22 16:12 02/25/22 16:42 Temperature 37.0 C Temperature Source Oral Pulse Rate 93 H Pulse Rate from SpO2 Sensor Respiratory Rate 13 22 18 Respiratory Effort / Characteristics Non-Labored Spontaneous Non-Labored Spontaneous Blood Pressure 173/71 H Blood Pressure Mean 105 Pulse Oximetry 96 94 93 Oxygen Delivery Method Room Air Nasal Cannula Room Air Sepsis Recent Fever Within 48 Hours No Sepsis New/Unexplained Change in Mental Status N/A Sepsis Action Taken by Nursing No Action Required 02/25/22 17:12 02/25/22 17:42 02/25/22 17:49 Temperature Temperature Source Pulse Rate 83 Pulse Rate from SpO2 Sensor Respiratory Rate 23 20 18 Respiratory Effort / Characteristics Non-Labored Spontaneous Non-Labored Spontaneous Blood Pressure 167/72 H Blood Pressure Mean 103 Pulse Oximetry 95 95 94 Oxygen Delivery Method Room Air Room Air Sepsis Recent Fever Within 48 Hours Sepsis New/Unexplained Change in Mental Status Sepsis Action Taken by Nursing 02/25/22 18:00 02/25/22 18:30 02/25/22 19:00 Temperature Temperature Source Pulse Rate 84 72 Pulse Rate from SpO2 Sensor Respiratory Rate 19 15 22 Respiratory Effort / Characteristics Non-Labored Spontaneous Non-Labored Spontaneous Non-Labored Spontaneous Blood Pressure 138/75 117/60 Blood Pressure Mean 96 79 Pulse Oximetry 93 Oxygen Delivery Method Room Air Room Air Sepsis Recent Fever Within 48 Hours Sepsis New/Unexplained Change in Mental Status Sepsis Action Taken by Nursing 02/25/22 19:01 02/25/22 19:30 02/25/22 20:00 Temperature Temperature Source Pulse Rate 68 Pulse Rate from SpO2 Sensor Respiratory Rate 17 Respiratory Effort / Characteristics Non-Labored Spontaneous Non-Labored Spontaneous Blood Pressure 103/49 L Blood Pressure Mean 67 Pulse Oximetry 96 95 93 Oxygen Delivery Method Room Air Room Air Sepsis Recent Fever Within 48 Hours Sepsis New/Unexplained Change in Mental Status Sepsis Action Taken by Nursing 02/25/22 20:07 02/25/22 20:30 02/25/22 21:00 Temperature Temperature Source Pulse Rate 80 95 H 82 Pulse Rate from SpO2 Sensor 86 Respiratory Rate 20 21 17 Respiratory Effort / Characteristics Non-Labored Spontaneous Non-Labored Spontaneous Blood Pressure 178/84 H 180/86 H 151/79 H Blood Pressure Mean 115 117 103 Pulse Oximetry 94 91 92 Oxygen Delivery Method Room Air Room Air Sepsis Recent Fever Within 48 Hours Sepsis New/Unexplained Change in Mental Status Sepsis Action Taken by Nursing 02/25/22 21:30 02/25/22 22:00 Temperature Temperature Source Pulse Rate 78 88 Pulse Rate from SpO2 Sensor Respiratory Rate 28 H 21 Respiratory Effort / Characteristics Non-Labored Spontaneous Non-Labored Spontaneous Blood Pressure 154/77 H 184/96 H Blood Pressure Mean 102 125 Pulse Oximetry 90 90 Oxygen Delivery Method Room Air Room Air Sepsis Recent Fever Within 48 Hours Sepsis New/Unexplained Change in Mental Status Sepsis Action Taken by Nursing Physical Exam GENERAL: Ill-appearing with excessive oral secretions. HENT: Exam performed. -Head: Normocephalic and atraumatic. -Right Ear: External ear normal. No mastoid tenderness. -Left Ear: External ear normal. No mastoid tenderness. -Mouth/Throat: The oropharynx is clear and moist. No trismus in the jaw. No dental abscesses or uvula swelling. No oropharyngeal exudate or tonsillar abscesses. Excessive oral secretions for EYES: Conjunctivae and EOM are normal. Pupils are equal, round, and reactive to light. Right eye exhibits no discharge. Left eye exhibits no discharge. No scleral icterus. NECK: Normal range of motion. Neck supple. No JVD present. CV: Normal rate, regular rhythm, normal heart sounds and intact distal pulses. There is no peripheral edema. Palpable radial pulses bue. PULM/CHEST: Rhonchi bilaterally -Chest Wall: She exhibits no tenderness. ABD: The abdomen is soft. PEG tube in place. LYMPH: No cervical adenopathy. Course Course 1558: The patient was evaluated in room B4. A complete history and physical exam was performed Cardiac monitoring: An order was placed for continuous cardiac monitoring. The monitor shows a rate of 70 with sinus rhythm 1950: Vital signs stable. Imaging within normal limits, PEG tube is in place. Labs within normal limits with exception of urinalysis concerning for UTI. Patient has an extensive allergy list. EMR reviewed and the patient's last urine culture grew out E. coli that was resistant to multiple medications. Give n the patient's multiple allergies and sensitivities based off the last urine culture it seems cefepime would be the best option for the patient. Patient be treated with cefepime in the emergency department and admitted to the [facility] Hospitalist team. at bedside is in agreement with this plan. Administered Medications Discontinued Medications Diphenhydramine HCl (Diphenhydramine 50 Mg/Ml Vial) 25 mg IV NOW STA Stop: 02/25/22 18:17 Last Admin: 02/25/22 18:21 Dose: 25 mg Documented by: [id number] Sodium Chloride (Nss 1000ml) 500 mls @ 999 mls/hr IV .Q31M ONE Stop: 02/25/22 18:09 Last Infusion: 02/25/22 18:23 Dose: 0 mls/hr Documented by: [id number] Admin: 02/25/22 17:52 Dose: 999 mls/hr Documented by: [id number] Cefepime HCl (Maxipime) 2,000 mg in 20 mls @ 5 mls/min IV NOW STA; Protocol Stop: 02/25/22 19:51 Last Admin: 02/25/22 20:14 Dose: 5 mls/min Documented by: [id number] Piperacillin Sod/Tazobactam Sod (Zosyn) 4.5 gm in 120 mls @ 240 mls/hr IV NOW ONE Stop: 02/25/22 21:48 Last Infusion: 02/25/22 22:44 Dose: 0 mls/hr Documented by: [id number] Admin: 02/25/22 22:12 Dose: 240 mls/hr Documented by: [id number] Metoprolol Tartrate (Metoprolol Tartrate 1 Mg/Ml Vial) 2.5 mg IV NOW STA Stop: 02/25/22 21:22 Last Admin: 02/25/22 22:17 Dose: 2.5 mg Documented by: [id number] Medical Decision Making Laboratory Data Result diagrams: 02/25/22 16:56 02/25/22 16:56 Lab Results 02/25/22 02/25/22 02/25/22 Range/Units 16:33 16:56 16:56 WBC 6.07 (4.8-10.8) K/uL RBC 4.24 (4.2-5.4) M/uL Hgb 11.2 L (12.0-16.0) g/dL Hct 36.0 L (37-47) % MCV 84.9 (80-100) fL MCH 26.4 (25-34) pg MCHC 31.1 L (32-36) g/dL RDW Std Deviation 41.9 (36.4-46.3) fL RDW Coeff of Marcela 13.5 (11.5-14.5) % Plt Count 305 (130-400) K/uL MPV 10.7 H (7.4-10.4) fL Immature Gran % (Auto) 0.2 % Neut % (Auto) 72.9 % Lymph % (Auto) 16.8 % [place] % (Auto) 7.2 % Eos % (Auto) 2.6 % Baso % (Auto) 0.3 % Neut # (Auto) 4.42 (1.4-6.5) K/uL Lymph # (Auto) 1.02 L (1.2-3.4) K/uL [place] # (Auto) 0.44 (0.11-0.59) K/uL Eos # (Auto) 0.16 (0-0.5) K/uL Baso # (Auto) 0.02 (0-0.2) K/uL Immature Gran # (Auto) 0.01 (0.00-0.02) K/uL PT 10.3 (9.0-12.0) Seconds INR 1.0 (0.9-1.1) APTT 29.1 (21.0-31.0) Seconds PTT Ratio 1.1 Sodium (136-145) mmol/L Potassium (3.5-5.1) mmol/L Chloride (98-107) mmol/L Carbon Dioxide (21-32) mmol/L Anion Gap (3-11) BUN (6-23) mg/dl Creatinine (0.6-1.2) mg/dl Est Cr Clr Drug Dosing ml/min Est GFR ( Amer) ml/min Est GFR (Non-Af Amer) ml/min BUN/Creatinine Ratio (10-20) Glucose (70-99(Fasting)) mg/dl Lactate (0.4-2.0) mmol/L Calcium (8.5-10.1) mg/dl Magnesium (1.7-2.4) mg/dl Total Bilirubin (0.2-1.0) mg/dl AST (13-39) U/L ALT (7-52) U/L Alkaline Phosphatase (34-104) U/L Troponin I High Sens (0-14) pg/ml Total Protein (6.0-8.3) gm/dl Albumin (3.4-5.0) gm/dl Globulin (2.5-4.0) gm/dl Albumin/Globulin Ratio (0.9-2) Procalcitonin (0-0.5) ng/ml Urine Color Urine Appearance (Clear) Urine pH (4.5-7.5) Ur Specific [place] (1.000-1.030) Urine Protein (Negative) Urine Glucose (UA) (Negative) Urine Ketones (Negative) Urine Blood (Negative) Urine Nitrite (Negative) Urine Bilirubin (Negative) Urine Urobilinogen (Negative) Ur Leukocyte Esterase (Negative) Urine WBC (Auto) (0-5) /hpf Urine RBC (Auto) (0-4) /hpf U Hyaline Cast (Auto) (0-5) /lpf U Epithel Cells (Auto) (0-5) /lpf Urine Bacteria (Auto) (Negative) Urine Yeast (None Prsent) SARS-CoV-2, RNA, NAAT NEGATIVE (NEGATIVE) 02/25/22 02/25/22 02/25/22 Range/Units 16:56 16:56 16:56 WBC (4.8-10.8) K/uL RBC (4.2-5.4) M/uL Hgb (12.0-16.0) g/dL Hct (37-47) % MCV (80-100) fL MCH (25-34) pg MCHC (32-36) g/dL RDW Std Deviation (36.4-46.3) fL RDW Coeff of Marcela (11.5-14.5) % Plt Count (130-400) K/uL MPV (7.4-10.4) fL Immature Gran % (Auto) % Neut % (Auto) % Lymph % (Auto) % [place] % (Auto) % Eos % (Auto) % Baso % (Auto) % Neut # (Auto) (1.4-6.5) K/uL Lymph # (Auto) (1.2-3.4) K/uL [place] # (Auto) (0.11-0.59) K/uL Eos # (Auto) (0-0.5) K/uL Baso # (Auto) (0-0.2) K/uL Immature Gran # (Auto) (0.00-0.02) K/uL PT (9.0-12.0) Seconds INR (0.9-1.1) APTT (21.0-31.0) Seconds PTT Ratio Sodium 136 (136-145) mmol/L Potassium 4.3 (3.5-5.1) mmol/L Chloride 97 L (98-107) mmol/L Carbon Dioxide 34 H (21-32) mmol/L Anion Gap 5 (3-11) BUN 25 H (6-23) mg/dl Creatinine 0.50 L (0.6-1.2) mg/dl Est Cr Clr Drug Dosing 76.6 ml/min Est GFR ( Amer) 108.2 ml/min Est GFR (Non-Af Amer) 93.4 ml/min BUN/Creatinine Ratio 50.0 H (10-20) Glucose 107 H (70-99(Fasting)) mg/dl Lactate 0.6 (0.4-2.0) mmol/L Calcium 9.6 (8.5-10.1) mg/dl Magnesium 1.8 (1.7-2.4) mg/dl Total Bilirubin 0.3 (0.2-1.0) mg/dl AST 15 (13-39) U/L ALT 18 (7-52) U/L Alkaline Phosphatase 83 (34-104) U/L Troponin I High Sens 10.8 (0-14) pg/ml Total Protein 6.2 (6.0-8.3) gm/dl Albumin 3.6 (3.4-5.0) gm/dl Globulin 2.6 (2.5-4.0) gm/dl Albumin/Globulin Ratio 1.4 (0.9-2) Procalcitonin 0.18 (0-0.5) ng/ml Urine Color Urine Appearance (Clear) Urine pH (4.5-7.5) Ur Specific [place] (1.000-1.030) Urine Protein (Negative) Urine Glucose (UA) (Negative) Urine Ketones (Negative) Urine Blood (Negative) Urine Nitrite (Negative) Urine Bilirubin (Negative) Urine Urobilinogen (Negative) Ur Leukocyte Esterase (Negative) Urine WBC (Auto) (0-5) /hpf Urine RBC (Auto) (0-4) /hpf U Hyaline Cast (Auto) (0-5) /lpf U Epithel Cells (Auto) (0-5) /lpf Urine Bacteria (Auto) (Negative) Urine Yeast (None Prsent) SARS-CoV-2, RNA, NAAT (NEGATIVE) 02/25/22 Range/Units 17:42 WBC (4.8-10.8) K/uL RBC (4.2-5.4) M/uL Hgb (12.0-16.0) g/dL Hct (37-47) % MCV (80-100) fL MCH (25-34) pg MCHC (32-36) g/dL RDW Std Deviation (36.4-46.3) fL RDW Coeff of Marcela (11.5-14.5) % Plt Count (130-400) K/uL MPV (7.4-10.4) fL Immature Gran % (Auto) % Neut % (Auto) % Lymph % (Auto) % [place] % (Auto) % Eos % (Auto) % Baso % (Auto) % Neut # (Auto) (1.4-6.5) K/uL Lymph # (Auto) (1.2-3.4) K/uL [place] # (Auto) (0.11-0.59) K/uL Eos # (Auto) (0-0.5) K/uL Baso # (Auto) (0-0.2) K/uL Immature Gran # (Auto) (0.00-0.02) K/uL PT (9.0-12.0) Seconds INR (0.9-1.1) APTT (21.0-31.0) Seconds PTT Ratio Sodium (136-145) mmol/L Potassium (3.5-5.1) mmol/L Chloride (98-107) mmol/L Carbon Dioxide (21-32) mmol/L Anion Gap (3-11) BUN (6-23) mg/dl Creatinine (0.6-1.2) mg/dl Est Cr Clr Drug Dosing ml/min Est GFR ( Amer) ml/min Est GFR (Non-Af Amer) ml/min BUN/Creatinine Ratio (10-20) Glucose (70-99(Fasting)) mg/dl Lactate (0.4-2.0) mmol/L Calcium (8.5-10.1) mg/dl Magnesium (1.7-2.4) mg/dl Total Bilirubin (0.2-1.0) mg/dl AST (13-39) U/L ALT (7-52) U/L Alkaline Phosphatase (34-104) U/L Troponin I High Sens (0-14) pg/ml Total Protein (6.0-8.3) gm/dl Albumin (3.4-5.0) gm/dl Globulin (2.5-4.0) gm/dl Albumin/Globulin Ratio (0.9-2) Procalcitonin (0-0.5) ng/ml Urine Color Yellow Urine Appearance Cloudy A (Clear) Urine pH 7.5 (4.5-7.5) Ur Specific [place] 1.007 (1.000-1.030) Urine Protein Negative (Negative) Urine Glucose (UA) Negative (Negative) Urine Ketones Negative (Negative) Urine Blood Negative (Negative) Urine Nitrite Negative (Negative) Urine Bilirubin Negative (Negative) Urine Urobilinogen Negative (Negative) Ur Leukocyte Esterase 3+ H (Negative) Urine WBC (Auto) >30 H (0-5) /hpf Urine RBC (Auto) 0-4 (0-4) /hpf U Hyaline Cast (Auto) 0 (0-5) /lpf U Epithel Cells (Auto) 10-20 H (0-5) /lpf Urine Bacteria (Auto) 4+ H (Negative) Urine Yeast Present A (None Prsent) SARS-CoV-2, RNA, NAAT (NEGATIVE) Imaging Data Radiologist's Impression: Chest X-Ray 02/25/22 16:12 SINGLE VIEW CHEST CLINICAL HISTORY: Sepsis. FINDINGS: An AP, portable, upright chest radiograph is compared to study dated 01/27/2022. The examination is degraded by portable technique and patient rotation. The heart is enlarged noting atherosclerotic calcification of the thoracic aorta. The pulmonary vasculature is noncongested. Chronic interstitial thickening is similar to previous. Left basilar opacities are unchanged and likely represent atelectasis. The lungs and pleural spaces are otherwise clear. No pneumothorax is seen. The skeletal structures are osteopenic. The bony thorax is grossly intact. Enteric contrast is noted in the stomach. IMPRESSION: 1. Cardiomegaly without radiographic evidence of congestive failure. 2. Left basilar opacities are unchanged from prior studies and likely represent atelectasis. Clinical correlation will be required. ACT 112: Negative or not required by law. Electronically signed by: Jeremiah Estrella M.D. 02/25/2022 6:43 PM KUB X-Ray 02/25/22 16:12 KUB TUBE CHECK CLINICAL HISTORY: PEG tube placement. FINDINGS: An AP, portable, supine abdominal radiographs was obtained. Approximately 50 cc of Optiray 300 was then injected through the PEG tube and 2 additional images were obtained. Comparison is made to study dated 12/16/2021 and correlated with abdominal CT dated 01/10/2022. The initial image shows a gastrostomy tube projecting over the left upper quadrant. There is no bowel obstruction. Suture material projects over the pelvis and there is mesh material projecting over the right groin. No evidence of intracranial free air is seen on these supine images. There are no abnormal abdominal calcifications. The skeletal structures are osteopenic and appear intact. The injected contrast goes into the stomach. No extraluminal contrast is seen. The heart is enlarged. IMPRESSION: 1. The gastrostomy tube is located in the stomach. 2. No extraluminal contrast is identified. 3. Nonobstructed bowel gas pattern. Electronically signed by: Jeremiah Estrella M.D. 02/25/2022 6:[address] 02/25/22 16:14 CT SCAN OF THE BRAIN WITHOUT IV CONTRAST CLINICAL HISTORY: Change in mental status. COMPARISON STUDY: CT of the brain dated 01/10/2022. TECHNIQUE: Unenhanced axial CT scan of the brain is performed from the vertex to the skull base. A dose lowering technique was utilized adhering to the principles of ALARA. CT DOSE: 749.40 mGy.cm FINDINGS: Brain parenchyma: There is age-related involutional change noting mild to moderate subcortical and periventricular microangiopathic disease. There is no hemorrhage, mass effect, or evidence of acute territorial ischemia by CT criteria. Ballard-white matter differentiation is preserved. No extra-axial fluid collection is seen. Ventricles, sulci, cisterns: Prominent secondary to involutional change. Intracranial vasculature: There is atherosclerotic calcification of the cavernous carotid and vertebral arteries. Calvarium: Unremarkable. Sinuses and mastoids: The paranasal sinuses are clear. The mastoid air cells are well pneumatized. Orbits: The bony orbits are grossly intact. IMPRESSION: There is no hemorrhage, mass effect, or evidence of acute territorial ischemia by CT criteria. ACT 112: Negative or not required by law. Electronically signed by: Jeremiah Estrella M.D. 02/25/2022 5:18 PM ECG Data Indication: + weakness Rate (beats per minute): 74 Rhythm: + normal sinus ECG Intervals/blocks: + Normal QRS, + Normal IN and + Normal QT-c ECG ST segments: + Normal ST segments MDM Narrative Vital signs stable. Imaging within normal limits, PEG tube is in place. Labs within normal limits with exception of urinalysis concerning for UTI. Patient has an extensive allergy list. EMR reviewed and the patient's last urine culture grew out E. coli that was resistant to multiple medications. Given the patient's multiple allergies and sensitivities based off the last urine culture it seems cefepime would be the best option for the patient. Patient be treated with cefepime in the emergency department and admitted to the [facility] hospitalist team. at bedside is in agreement with this plan. Impression & Plan Acute UTI, ALS (amyotrophic lateral sclerosis) Discharge Plan Visit Data Chief Complaint: Feeding/PEG Tube Replacement Discharge Problem: Acute UTI, ALS (amyotrophic lateral sclerosis) Patient Disposition: Being Evaluated by Hospitalist Forms Stand Alone Forms: [facility] Prescriptions Prescriptions: No Action losartan 50 mg tablet 100 mg feeding tube QAM RF: 0 levothyroxine 112 mcg tablet 112 mcg feeding tube DAILYBB RF: 0 hydroxyzine HCl 25 mg tablet 25 mg feeding tube Q6 PRN (Reason: Itching/anxiety/drying) RF: 0 riluzole 50 mg tablet 50 mg feeding tube BID RF: 0 hydrocortisone 2.5 % cream with perineal applicator 1 applic IN BID PRN (Reason: Hemorrhoids) RF: 0 hyoscyamine sulfate 0.125 mg tablet, sublingual 0.125 mg feeding tube Q4 PRN (Reason: abdominal cramps) RF: 0 gabapentin 100 mg capsule 100 mg feeding tube TID RF: 0 famotidine 40 mg/5 mL (8 mg/mL) suspension 40 mg feeding tube QAM RF: 0 lorazepam 1 mg tablet 1 mg feeding tube QID PRN (Reason: Anxiety) RF: 0 fluticasone propionate 50 mcg/actuation spray,suspension 2 spray INTRANASAL DAILY PRN (Reason: Allergy Symptoms) RF: 0 simethicone 80 mg Tablet,Chewable 160 mg feeding tube DAILY PRN (Reason: excessive gas) RF: 0 cholestyramine (with sugar) 4 gram powder in packet 0.5 - 1 ea feeding tube BID PRN (Reason: Stool Bulking) RF: 0 mirtazapine 7.5 mg tablet 7.5 mg feeding tube HS PRN (Reason: Sleep) RF: 0 Guaifenesin 400mg/20ml 20 ml feeding tube Q4H PRN (Reason: mucus) RF: 0 nystatin 100,000 unit/mL suspension 10 ml PO TID PRN (Reason: mouth sores) RF: 0 Saccharomyces boulardii [Florastor] 250 mg capsule 250 mg feeding tube QAM RF: 0 hydromorphone [Dilaudid] 2 mg tablet 1 mg feeding tube Q4H PRN (Reason: pain) RF: 0 methenamine hippurate 1 gram Tablet 1 g PO BID Qty: 60 RF: 0 diphenhydramine HCl [Benadryl Allergy] 25 mg Tablet 25 - 50 mg PO DAILY PRN (Reason: Allergy Symptoms) RF: 0 ascorbic acid (vitamin C) [Vitamin C] 500 mg tablet 500 mg feeding tube QAM RF: 0 lidocaine 5 % Adhesive Patch,Medicated 1 patch TOPICAL DAILY PRN (Reason: Pain) RF: 0 scopolamine base 1 mg over 3 days patch 3 day 1 patch transdermal Q3D PRN (Reason: Secretions) RF: 0 albuterol sulfate 2.5 mg /3 mL (0.083 %) solution for nebulization 2.5 mg inhalation Q4H PRN (Reason: Wheezing) RF: 0 ondansetron HCl 4 mg tablet 4 mg feeding tube Q6H RF: 0 dicyclomine 20 mg tablet 20 mg feeding tube Q6H PRN (Reason: Diarrhea/abdominal pain) RF: 0 levocetirizine [Xyzal] 5 mg Tablet 5 mg feeding tube DAILY PRN (Reason: Allergy Symptoms) RF: 0 menthol-zinc oxide [Calmoseptine] 0.44-20.6 % Ointment 1 applic TOPICAL QID PRN (Reason: sores) RF: 0 Probiotic 3 billion cell Capsule 0 mmu cells feeding tube HS RF: 0 lansoprazole 30 mg tablet,disintegrat, delay rel 30 mg feeding tube BID Qty: 0 RF: 0 fentanyl 50 mcg/hr patch 72 hour 50 mcg transdermal [id number] RF: 0 glycopyrrolate 1 mg tablet 1 mg feeding tube TID RF: 0 vancomycin 50 mg/mL recon soln 250 mg PO Q6 RF: 0 Referrals Referrals: Devonte Sweeney DO [Primary Care Provider] -
[2022-02-25] MEDS ORDERED: KETOROLAC TROMETHAMINE 15 MG/ML VIAL IV STA (22:55)
[2022-02-25 23:27] LABS: Thyroid Stimulating Hormone 5.734 uIu/ml (0.300-4.500)
[2022-02-26 00:01] LABS: T4 Free Thyroxine 1.09 ng/dl (0.61-1.60)
[2022-02-26] MEDS ORDERED: ACETAMINOPHEN 1,000 MG/100 ML VIAL IV PRN (00:03)
[2022-02-26] MEDS ORDERED: SODIUM CHLORIDE 0.9% 1000ML 1,000 ML IV ONE (00:03)
[2022-02-26] MEDS ORDERED: PROMETHAZINE HCL 12.5 MG in SODIUM CHLORIDE 0.9% 50 ML IV PRN (00:03)
[2022-02-26] MEDS ORDERED: CETIRIZINE HCL 10 MG TABLET PO PRN (00:28)
[2022-02-26] MEDS ORDERED: LORazepam 1 MG TAB PEG PRN (00:53)
[2022-02-26] MEDS ORDERED: hydrALAZINE HCL 20 MG/ML VIAL IV STA (01:05)
[2022-02-26] MEDS: DICYCLOMINE HCL 20 MG TAB PEG PRN ×3 (01:44→17:52)
[2022-02-26] MEDS ORDERED: fentaNYL 50 MCG/HR TDSY TD ONE (02:00)
[2022-02-26] MEDS: SIMETHICONE 40 MG/0.6 ML 30ML GT PRN ×2 (02:06→10:41)
[2022-02-26] MEDS: CHECK fentaNYL PATCH PLACEMENT SCH ×4 (02:30→23:26)
[2022-02-26] MEDS: PIPERACILLIN/TAZOBACTAM 3.375 GM in DEXTROSE 5% 100 ML IV SCH ×3 (04:54→20:37)
[2022-02-26] MEDS: LEVOTHYROXINE SODIUM 112 MCG TABLET GT SCH (05:41)
--- NOTE | 2022-02-26 08:19 | Gastrointestinal Consultation ---
Date of Consultation February 26, 2022 Assessment & Plan (1) PEG (percutaneous endoscopic gastrostomy) status: (2) ALS (amyotrophic lateral sclerosis): 76 y/o female with ALS, admitted with change in mental status, UTI, we are consulted for concern over PEG tube; caregivers felt it appeared to be out/longer more than usual, however KUB shows it to be in place and was used for meds last evening without issue. On exam, PEG in place, soft abd. - Ok to use PEG for feeds, meds as before - GI will sign off, please call with questions. Supervising Physician Co-Signing Physician Notes I performed a history and physical examination of the patient today, including specifically on physical exam - soft abdomen. I have discussed the patient's management with the advanced practitioner. Please refer to the nurse deonte hudson's note for the documented findings and plan of care. I adjusted the bumper to 4 cm. If continues to slip back will need to change the tube tomorrow. History of Present Illness Reason for Consultation: Gibran ledesma Requesting Physician: Dr. Stevens Attending Physician: Torres Rosen MD History of Present Illness 76 year old female with ALS who underwent PEG placement by IR as no endoscopic window, UTIs, and others admitted after presenting from home - caregivers felt there was an issue with the PEG tube (seemed longer than normal;concern it was out), and pt also has AMS. Pt found to have a UTI. KUB for placement demonstrated PEG tube is located in the stomach. It was used for meds last night without issue. Pt mumbles unintelligibly; can't obtain ROS. Resting in bed. Had loose BM this AM. Allergies Allergy/AdvReac Type Severity Reaction Status Date / Time Iodinated Contrast Media Allergy Severe dyspnea Verified 02/25/22 20:53 azithromycin Allergy Intermediate rash Verified 02/25/22 20:53 cefaclor Allergy Intermediate hives Verified 02/25/22 20:53 erythromycin base Allergy Intermediate hives Verified 02/25/22 20:53 levalbuterol Allergy Intermediate chest pain Verified 02/25/22 20:53 minocycline Allergy Intermediate rash Verified 02/25/22 20:53 nitrofurantoin Allergy Intermediate possible Verified 02/25/22 20:53 hives or dyspnea phenazopyridine Allergy Intermediate dyspnea Verified 02/25/22 20:53 Sulfa (Sulfonamide Allergy Intermediate hives Verified 02/25/22 20:53 Antibiotics) oxycodone [From OxyContin] Allergy Unknown Unverified 02/25/22 20:53 meropenem AdvReac Severe Hives Verified 02/25/22 20:53 metronidazole AdvReac Intermediate GI symptoms Verified 02/25/22 20:53 morphine AdvReac Intermediate vomiting Verified 02/25/22 20:53 levofloxacin AdvReac Mild abdominal Verified 02/25/22 20:53 pain albuterol [From Ventolin HFA] AdvReac Chest Pain Unverified 02/25/22 20:53 iodine AdvReac Anaphylaxis Unverified 02/25/22 20:53 tramadol AdvReac Confusion Unverified 02/25/22 20:53 Home Medications Medication Instructions Recorded Confirmed Type losartan 50 mg tablet 100 mg FEEDING TUBE QAM 07/08/19 02/25/22 History lidocaine 5 % topical patch 1 patch TOPICAL DAILY PRN 07/22/21 02/25/22 History hydroxyzine HCl 25 mg tablet 25 mg FEEDING TUBE Q6 PRN 11/22/21 02/25/22 History levothyroxine 112 mcg tablet 112 mcg FEEDING TUBE DAILYBB 11/22/21 02/25/22 History riluzole 50 mg tablet 50 mg FEEDING TUBE BID 11/22/21 02/25/22 History albuterol sulfate 2.5 mg INHALATION Q4H PRN 12/16/21 02/25/22 History dicyclomine 20 mg tablet 20 mg FEEDING TUBE Q6H PRN 12/16/21 02/25/22 History lactobacillus combination no.4 3 0 mmu cells FEEDING TUBE HS 12/16/21 02/25/22 History billion cell capsule (Probiotic) levocetirizine 5 mg tablet (Xyzal) 5 mg FEEDING TUBE DAILY PRN 12/16/21 02/25/22 History menthol 0.44 %-zinc oxide 20.6 % 1 applic TOPICAL QID PRN 12/16/21 02/25/22 History topical ointment (Calmoseptine) ondansetron HCl 4 mg tablet 4 mg FEEDING TUBE Q6H 12/16/21 02/25/22 History lansoprazole 30 mg delayed 30 mg FEEDING TUBE BID #0 tab 12/28/21 02/25/22 Rx release,disintegrating tablet Guaifenesin 400mg/20ml 20 ml FEEDING TUBE Q4H PRN 01/10/22 02/25/22 History Saccharomyces boulardii 250 mg 250 mg FEEDING TUBE QAM 01/10/22 02/25/22 History capsule (Florastor) cholestyramine (with sugar) 4 gram 0.5 - 1 ea FEEDING TUBE BID PRN 01/10/22 02/25/22 History powder for susp in a packet famotidine 40 mg/5 mL (8 mg/mL) 40 mg FEEDING TUBE QAM 01/10/22 02/25/22 History oral suspension fluticasone propionate 50 2 spray INTRANASAL DAILY PRN 01/10/22 02/25/22 History mcg/actuation nasal spray,suspension gabapentin 100 mg capsule 100 mg FEEDING TUBE TID 01/10/22 02/25/22 History hydrocortisone 2.5 % topical cream 1 applic [place] BID PRN 01/10/22 02/25/22 History with perineal applicator hydromorphone 2 mg tablet 1 mg FEEDING TUBE Q4H PRN 01/10/22 02/25/22 History (Dilaudid) hyoscyamine sulfate 0.125 mg 0.125 mg FEEDING TUBE Q4 PRN 01/10/22 02/25/22 History sublingual tablet lorazepam 1 mg tablet 1 mg FEEDING TUBE QID PRN 01/10/22 02/25/22 History mirtazapine 7.5 mg tablet 7.5 mg FEEDING TUBE HS PRN 01/10/22 02/25/22 History nystatin 100,000 unit/mL oral 10 ml PO TID PRN 01/10/22 02/25/22 History suspension simethicone 80 mg chewable tablet 160 mg FEEDING TUBE DAILY PRN 01/10/22 02/25/22 History methenamine hippurate 1 gram tablet 1 g PO BID #60 tab 01/17/22 02/25/22 Rx ascorbic acid (vitamin C) 500 mg 500 mg FEEDING TUBE QAM 01/27/22 02/25/22 History tablet (Vitamin C) diphenhydramine HCl 25 mg tablet 25 - 50 mg PO DAILY PRN 01/27/22 02/25/22 History (Benadryl Allergy) fentanyl 50 mcg/hr transdermal 50 mcg TRANSDERMAL [id number] 02/25/22 02/25/22 History patch glycopyrrolate 1 mg tablet 1 mg FEEDING TUBE TID 02/25/22 02/25/22 History vancomycin 50 mg/mL oral solution 250 mg PO Q6 02/25/22 02/25/22 History Patient History Medical History ALS (amyotrophic lateral sclerosis) Cancer left breast (2015) s/p left lumpectomy/XRT, no chemo Cervical stenosis of spinal canal Diarrhea GERD (gastroesophageal reflux disease) controlled, stable. Patient sleeps elevated HS. 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) "Abnormal left breast mammogram Status post stereotactic biopsy 11/14/2015 revealing DCIS grade 1 Estrogen receptor positive and progesterone receptor positive Status post needle localization lumpectomy 12/20/2015 Stage pTis pNX Status post completion of radiation therapy 03/01/2016 received 3850 cGy utilizing accelerated partial breast irradiation." On 03/14/16 11:36 Ese Cabrera wrote "Abnormal left breast mammogram Status post stereotactic biopsy 11/14/2015 revealing DCIS grade 1 Estrogen receptor positive and progesterone receptor positive Status post needle localization lumpectomy 12/20/2015 Stage pTis pNX Status post completion of radiation therapy 03/01/2016 received 3850 cGy utilizing accelerated partial breast irradiation." On 02/01/16 11:23 Ese Cabrera wrote "Abnormal left breast mammogram Status post stereotactic biopsy 11/14/2015 revealing DCIS grade 1 Estrogen receptor positive and progesterone receptor positive Status post needle localization lumpectomy 12/20/2015 Stage pTis pNX" Lab test negative for COVID-19 virus Nausea Osteoarthritis Palliative care encounter SOB (shortness of breath) Surgical History H/O foot surgery R ORIF History of appendectomy History of carpal tunnel release R/L History of colectomy D/T DIVERTICULITIS History of colonoscopy MULTIPLE History of D&C D&C, hysteroscopy: 10/24/17: LMA# 4 at [facility] History of esophagogastroduodenoscopy (EGD) History of lumpectomy of left breast 2016 History of tonsillectomy S/P percutaneous endoscopic gastrostomy (PEG) tube placement Family History Mother Breast cancer Social History Smoking Status: Former smoker Tobacco Type: Cigarettes Second Hand Exposure: No; Hx Alcohol Use: No Hx Substance Use: No Preferred Language: Jamaican Communication Ability: Impaired Communication Ability Comment: willis speech Electronic Bench Technician Required: No Beliefs That Will Affect Care: None marital status: Current Living Situation: Spouse and Family Current Living Situation Comment: and daughter Other Information That Helps Us Care for You: No Feels Safe at Home: Yes Safety Concerns: Feels Safe At This Time Assistive Devices: Mechanical Lift Assistive Devices Comment: suction machine Review of Systems Review of Systems: Unobtainable due to cognitive status Physical Exam Constitutional: chronically ill appearing; NAD Eyes: PERRL, conjunctivae normal, anicteric sclerae Respiratory: normal respiratory effort, lungs clear to auscultation Cardiovascular: RRR, no murmur, no edema Gastrointestinal (Abdomen): normal bowel sounds, soft, nontender, no h epatosplenomegaly PEG in place - bumper at 6 cm Skin: no rashes, warm and dry Psychiatric: Awake and alert; speech is mumbled Results & Data ([facility]) Vital Signs (Past 12 Hours) Vital Signs Temp Pulse Pulse Resp BP BP Pulse Ox 02/26/22 03:21 36.8 C 90 18 133/104 H 93 02/26/22 02:30 78 21 02/26/22 02:00 85 23 02/26/22 01:30 89 23 02/26/22 01:05 36.9 C 88 19 188/79 H 98 02/26/22 01:03 89 23 169/106 H 02/26/22 01:00 89 24 02/26/22 00:30 88 28 H 02/26/22 00:00 89 24 02/25/22 23:31 83 25 H 214/92 H 98 02/25/22 23:30 97 02/25/22 23:01 71 20 179/86 H 92 02/25/22 22:30 91 02/25/22 22:00 88 21 184/96 H 90 02/25/22 21:30 78 28 H 154/77 H 90 02/25/22 21:00 82 17 151/79 H 92 02/25/22 20:30 95 H 21 180/86 H 91 Laboratory Results 02/25/22 02/25/22 02/25/22 Range/Units 17:42 16:56 16:56 WBC (4.8-10.8) K/uL RBC (4.2-5.4) M/uL Hgb (12.0-16.0) g/dL Hct (37-47) % MCV (80-100) fL MCH (25-34) pg MCHC (32-36) g/dL RDW Std Deviation (36.4-46.3) fL RDW Coeff of Marcela (11.5-14.5) % Plt Count (130-400) K/uL MPV (7.4-10.4) fL Immature Gran % (Auto) % Neut % (Auto) % Lymph % (Auto) % [place] % (Auto) % Eos % (Auto) % Baso % (Auto) % Neut # (Auto) (1.4-6.5) K/uL Lymph # (Auto) (1.2-3.4) K/uL [place] # (Auto) (0.11-0.59) K/uL Eos # (Auto) (0-0.5) K/uL Baso # (Auto) (0-0.2) K/uL Immature Gran # (Auto) (0.00-0.02) K/uL PT (9.0-12.0) Seconds INR (0.9-1.1) APTT (21.0-31.0) Seconds PTT Ratio Sodium (136-145) mmol/L Potassium (3.5-5.1) mmol/L Chloride (98-107) mmol/L Carbon Dioxide (21-32) mmol/L Anion Gap (3-11) BUN (6-23) mg/dl Creatinine (0.6-1.2) mg/dl Est Cr Clr Drug Dosing ml/min Est GFR ( Amer) ml/min Est GFR (Non-Af Amer) ml/min BUN/Creatinine Ratio (10-20) Glucose (70-99(Fasting)) mg/dl Lactate (0.4-2.0) mmol/L Calcium (8.5-10.1) mg/dl Magnesium (1.7-2.4) mg/dl Total Bilirubin (0.2-1.0) mg/dl AST (13-39) U/L ALT (7-52) U/L Alkaline Phosphatase (34-104) U/L Troponin I High Sens (0-14) pg/ml Total Protein (6.0-8.3) gm/dl Albumin (3.4-5.0) gm/dl Globulin (2.5-4.0) gm/dl Albumin/Globulin Ratio (0.9-2) Procalcitonin 0.18 (0-0.5) ng/ml TSH 5.734 H (0.300-4.500) uIu/ml Free T4 1.09 (0.61-1.60) ng/dl Urine Color Yellow Urine Appearance Cloudy A (Clear) Urine pH 7.5 (4.5-7.5) Ur Specific [place] 1.007 (1.000-1.030) Urine Protein Negative (Negative) Urine Glucose (UA) Negative (Negative) Urine Ketones Negative (Negative) Urine Blood Negative (Negative) Urine Nitrite Negative (Negative) Urine Bilirubin Negative (Negative) Urine Urobilinogen Negative (Negative) Ur Leukocyte Esterase 3+ H (Negative) Urine WBC (Auto) >30 H (0-5) /hpf Urine RBC (Auto) 0-4 (0-4) /hpf U Hyaline Cast (Auto) 0 (0-5) /lpf U Epithel Cells (Auto) 10-20 H (0-5) /lpf Urine Bacteria (Auto) 4+ H (Negative) Urine Yeast Present A (None Prsent) SARS-CoV-2, RNA, NAAT (NEGATIVE) 02/25/22 02/25/22 02/25/22 Range/Units 16:56 16:56 16:56 WBC (4.8-10.8) K/uL RBC (4.2-5.4) M/uL Hgb (12.0-16.0) g/dL Hct (37-47) % MCV (80-100) fL MCH (25-34) pg MCHC (32-36) g/dL RDW Std Deviation (36.4-46.3) fL RDW Coeff of Marcela (11.5-14.5) % Plt Count (130-400) K/uL MPV (7.4-10.4) fL Immature Gran % (Auto) % Neut % (Auto) % Lymph % (Auto) % [place] % (Auto) % Eos % (Auto) % Baso % (Auto) % Neut # (Auto) (1.4-6.5) K/uL Lymph # (Auto) (1.2-3.4) K/uL [place] # (Auto) (0.11-0.59) K/uL Eos # (Auto) (0-0.5) K/uL Baso # (Auto) (0-0.2) K/uL Immature Gran # (Auto) (0.00-0.02) K/uL PT 10.3 (9.0-12.0) Seconds INR 1.0 (0.9-1.1) APTT 29.1 (21.0-31.0) Seconds PTT Ratio 1.1 Sodium 136 (136-145) mmol/L Potassium 4.3 (3.5-5.1) mmol/L Chloride 97 L (98-107) mmol/L Carbon Dioxide 34 H (21-32) mmol/L Anion Gap 5 (3-11) BUN 25 H (6-23) mg/dl Creatinine 0.50 L (0.6-1.2) mg/dl Est Cr Clr Drug Dosing 76.6 ml/min Est GFR ( Amer) 108.2 ml/min Est GFR (Non-Af Amer) 93.4 ml/min BUN/Creatinine Ratio 50.0 H (10-20) Glucose 107 H (70-99(Fasting)) mg/dl Lactate 0.6 (0.4-2.0) mmol/L Calcium 9.6 (8.5-10.1) mg/dl Magnesium 1.8 (1.7-2.4) mg/dl Total Bilirubin 0.3 (0.2-1.0) mg/dl AST 15 (13-39) U/L ALT 18 (7-52) U/L Alkaline Phosphatase 83 (34-104) U/L Troponin I High Sens 10.8 (0-14) pg/ml Total Protein 6.2 (6.0-8.3) gm/dl Albumin 3.6 (3.4-5.0) gm/dl Globulin 2.6 (2.5-4.0) gm/dl Albumin/Globulin Ratio 1.4 (0.9-2) Procalcitonin (0-0.5) ng/ml TSH (0.300-4.500) uIu/ml Free T4 (0.61-1.60) ng/dl Urine Color Urine Appearance (Clear) Urine pH (4.5-7.5) Ur Specific [place] (1.000-1.030) Urine Protein (Negative) Urine Glucose (UA) (Negative) Urine Ketones (Negative) Urine Blood (Negative) Urine Nitrite (Negative) Urine Bilirubin (Negative) Urine Urobilinogen (Negative) Ur Leukocyte Esterase (Negative) Urine WBC (Auto) (0-5) /hpf Urine RBC (Auto) (0-4) /hpf U Hyaline Cast (Auto) (0-5) /lpf U Epithel Cells (Auto) (0-5) /lpf Urine Bacteria (Auto) (Negative) Urine Yeast (None Prsent) SARS-CoV-2, RNA, NAAT (NEGATIVE) 02/25/22 02/25/22 Range/Units 16:56 16:33 WBC 6.07 (4.8-10.8) K/uL RBC 4.24 (4.2-5.4) M/uL Hgb 11.2 L (12.0-16.0) g/dL Hct 36.0 L (37-47) % MCV 84.9 (80-100) fL MCH 26.4 (25-34) pg MCHC 31.1 L (32-36) g/dL RDW Std Deviation 41.9 (36.4-46.3) fL RDW Coeff of Marcela 13.5 (11.5-14.5) % Plt Count 305 (130-400) K/uL MPV 10.7 H (7.4-10.4) fL Immature Gran % (Auto) 0.2 % Neut % (Auto) 72.9 % Lymph % (Auto) 16.8 % [place] % (Auto) 7.2 % Eos % (Auto) 2.6 % Baso % (Auto) 0.3 % Neut # (Auto) 4.42 (1.4-6.5) K/uL Lymph # (Auto) 1.02 L (1.2-3.4) K/uL [place] # (Auto) 0.44 (0.11-0.59) K/uL Eos # (Auto) 0.16 (0-0.5) K/uL Baso # (Auto) 0.02 (0-0.2) K/uL Immature Gran # (Auto) 0.01 (0.00-0.02) K/uL PT (9.0-12.0) Seconds INR (0.9-1.1) APTT (21.0-31.0) Seconds PTT Ratio Sodium (136-145) mmol/L Potassium (3.5-5.1) mmol/L Chloride (98-107) mmol/L Carbon Dioxide (21-32) mmol/L Anion Gap (3-11) BUN (6-23) mg/dl Creatinine (0.6-1.2) mg/dl Est Cr Clr Drug Dosing ml/min Est GFR ( Amer) ml/min Est GFR (Non-Af Amer) ml/min BUN/Creatinine Ratio (10-20) Glucose (70-99(Fasting)) mg/dl Lactate (0.4-2.0) mmol/L Calcium (8.5-10.1) mg/dl Magnesium (1.7-2.4) mg/dl Total Bilirubin (0.2-1.0) mg/dl AST (13-39) U/L ALT (7-52) U/L Alkaline Phosphatase (34-104) U/L Troponin I High Sens (0-14) pg/ml Total Protein (6.0-8.3) gm/dl Albumin (3.4-5.0) gm/dl Globulin (2.5-4.0) gm/dl Albumin/Globulin Ratio (0.9-2) Procalcitonin (0-0.5) ng/ml TSH (0.300-4.500) uIu/ml Free T4 (0.61-1.60) ng/dl Urine Color Urine Appearance (Clear) Urine pH (4.5-7.5) Ur Specific [place] (1.000-1.030) Urine Protein (Negative) Urine Glucose (UA) (Negative) Urine Ketones (Negative) Urine Blood (Negative) Urine Nitrite (Negative) Urine Bilirubin (Negative) Urine Urobilinogen (Negative) Ur Leukocyte Esterase (Negative) Urine WBC (Auto) (0-5) /hpf Urine RBC (Auto) (0-4) /hpf U Hyaline Cast (Auto) (0-5) /lpf U Epithel Cells (Auto) (0-5) /lpf Urine Bacteria (Auto) (Negative) Urine Yeast (None Prsent) SARS-CoV-2, RNA, NAAT NEGATIVE (NEGATIVE) Diagnostic Findings KUB 02/25/22: FINDINGS: An AP, portable, supine abdominal radiographs was obtained. Approximately 50 cc of Optiray 300 was then injected through the PEG tube and 2 additional images were obtained. Comparison is made to study dated 12/16/2021 and correlated with abdominal CT dated 01/10/2022. The initial image shows a gastrostomy tube projecting over the left upper quadrant. There is no bowel obstruction. Suture material projects over the pelvis and there is mesh material projecting over the right groin. No evidence of intracranial free air is seen on these supine images. There are no abnormal abdominal calcifications. The skel etal structures are osteopenic and appear intact. The injected contrast goes into the stomach. No extraluminal contrast is seen. The heart is enlarged. IMPRESSION: 1. The gastrostomy tube is located in the stomach. 2. No extraluminal contrast is identified. 3. Nonobstructed bowel gas pattern.
--- NOTE | 2022-02-26 08:20 | Electrocardiogram Report ---
Test Reason : Blood Pressure : / mmHG Vent. Rate : 074 BPM Atrial Rate : 074 BPM P-R Int : 144 ms QRS Dur : 090 ms QT Int : 398 ms P-R-T Axes : 013 -36 020 degrees QTc Int : 441 ms Normal sinus rhythm Left axis deviation Incomplete right bundle branch block Abnormal ECG When compared with ECG of 27-JAN-2022 16:15, No significant change was found Confirmed by Eric Vaughan ([id number]) on 02/26/2022 8:20:12 AM Referred By: Devonte Sweeney Confirmed By:Eric Vaughan
[2022-02-26] MEDS: GLYCOPYRROLATE 1 MG TAB PO SCH ×3 (10:32→20:37)
[2022-02-26] MEDS: LOSARTAN POTASSIUM 50 MG TAB GT SCH (10:33)
[2022-02-26] MEDS: LANSOPRAZOLE 30 MG SOLTAB GT SCH ×2 (10:33→20:38)
[2022-02-26] MEDS: SACCHAROMYCES BOULARDII 250 MG CAP PO SCH (10:33)
[2022-02-26] MEDS: RILUZOLE PO SCH ×2 (10:34→20:38)
[2022-02-26] MEDS: FAMOTIDINE SUSP 40 MG/5 ML UDP PO SCH (10:34)
[2022-02-26] MEDS: ENOXAPARIN INJ 40 MG/0.4 ML SYR SQ SCH (10:36)
[2022-02-26] MEDS: VANCOMYCIN HCL 250 MG/5 ML SOLN PO SCH ×2 (11:04→17:31)
[2022-02-26] MEDS: RASPBERRY SYRUP 5 ML UDP PO SCH ×3 (11:04→23:27)
[2022-02-26] MEDS: FIBERSOURCE HN 1.2 CAL 1000 ML BAG GT SCH (14:01)
[2022-02-26] MEDS: guaiFENesin SUGAR FREE 200 MG/10 ML UDC GT PRN ×2 (14:01→22:07)
[2022-02-26] MEDS: TUBE FEEDING WATER FLUSH PEG SCH ×3 (14:01→20:39)
[2022-02-26] MEDS: ONDANSETRON 4 MG OD TAB PO SCH ×2 (15:13→20:39)
[2022-02-26] MEDS ORDERED: MIRTAZAPINE TAB 15 MG TAB GT PRN (15:27)
[2022-02-26] MEDS ORDERED: FLUTICASONE PROPIONATE NA SPR 16 GM BTL PRN (15:27)
--- NOTE | 2022-02-26 15:38 | Hospitalist Progress Note ---
Date of Service February 26, 2022 Assessment & Plan (1) Encephalopathy: (2) Acute UTI: Plan: 76 yo F w/ PMH of hypertension, ALS, aspiration with status post PEG tube placement, chronic pain on fentanyl patch, breast cancer status post surgery, recurrent UTIs on chronic methenamine suppression Rx/ chronic indwelling Rodriguez catheter/possible interstitial cystitis as per records,history DVT sp Xarelto, chronic anemia (baseline hemoglobin 10-11), history recurrent C. difficile ongoing vancomycin course, anxiety/mood disorder, past tobacco abuse presented due to episodes of agitation and pulling at PEG tube, more confused than usual. She is being managed for the following: #. Metabolic encephalopathy vs toxic metabolic encephalopathy #. CAUTI Patient presented with confusion, was found to have UTI in ED. Confusion likely related to her recurrent UTI/complex comorbidities/multiple neuropsychotropic medications and pain medications that she is requiring. Patient had history of allergy to meropenem in December 2021 at [facility]. Patient has been admitted Multiple times to the hospital for recurrent UTI and C. difficile in the past. Admitting urinalysis suggestive of UTI, follow-up final culture results. Continue with Zosyn 02/26. Continue to hold neuropsychotropic meds as able. Patient already more alert. #. Recurrent diagnosis of C diffcurrently under vanc po Patient [place] [facility] [place] to for AMS, UTI was ruled out, vancomycin course for C. difficile was extended until March 05, 2022. #. PEG tube concerns PEG tube in place per x-ray, not secure. GI on board, appreciate recommendation. #. Other chronic medical conditions:ALS, PEG tube feeding ALS care including suction, anticholinergics, riluzole as able. Dietitian consult for PEG tube feeding. As needed meds for hypertension, expect to have better control with improvement in her infection/resuming of her pain medication gradually. #. DVT prophylaxis:lovenox subcu #. DNR DNI Dispo: High risk for readmission. Due to poor prognosis, involving hospice might be a better idea, it has been discussed in the past. Palliative care consult. CM to assist w/ DC planning. Admission and Anticipated Discharge Date Admission Date: February 25, 2022 Subjective Patient seen and examined at bedside as a follow-up of metabolic versus toxic encephalopathy, catheter associated UTI on the background of progressive ALS. Patient was sitting up in bed, on room air, more alert, can't articulate clearly, using oral suction, NAD, no new acute events overnight per RN, reports some lower belly pain, denies headache or dizziness, denies chest pain. Physical Exam Physical Exam: GENERAL: Alert and awake. NAD, on RA HEENT: No pallor, no icterus. Pupils equal, round and reactive to light. Oral mucosa moist. NECK: No JVD, no neck masses. HEART: S1 and S2 heard. Regular rate and rhythm. No murmur, no gallop. RESPIRATORY SYSTEM: Normal AP diameter. No accessory muscle use. No wheezing, no crackles, decreased breath sounds ABDOMEN: Soft, bowel sounds present, nontender, no distention. PEG tube in place. Port of entry healthy w/o signs of infection. CENTRAL NERVOUS SYSTEM: No facial droop. Speech is clear. Obeys simple commands. EXTREMITIES: No edema, no erythema seen. UC cath in situ w/ yellow urine collection noted. Results & Data Results & Data ([facility]) Vital Signs (Past 12 Hours) Vital Signs Temp Pulse Pulse Resp BP Pulse Ox 02/26/22 11:54 94 H 02/26/22 11:09 36.8 C 69 18 181/69 H 94 02/26/22 08:46 36.7 C 83 18 177/108 H 94
[2022-02-26] MEDS ORDERED: diphenhydrAMINE Capsule 25 MG CAP PO PRN (15:40)
[2022-02-26] MEDS: HYDROmorphone HCL 2 MG TAB PO PRN ×2 (17:31→22:10)
[2022-02-26] MEDS: LACTOBACILLUS ACIDOPHILUS 1 GM PACK PEG SCH (20:38)
[2022-02-26] MEDS: LORazepam 1 MG TAB PEG PRN (20:39)
[2022-02-27] MEDS: VANCOMYCIN HCL 250 MG/5 ML SOLN PO SCH ×5 (00:20→23:40)
[2022-02-27] MEDS: TUBE FEEDING WATER FLUSH PEG SCH ×6 (02:01→19:31)
[2022-02-27] MEDS: ONDANSETRON 4 MG OD TAB PO SCH ×4 (04:51→19:29)
[2022-02-27] MEDS: PIPERACILLIN/TAZOBACTAM 3.375 GM in DEXTROSE 5% 100 ML IV SCH (04:51)
[2022-02-27] MEDS: LEVOTHYROXINE SODIUM 112 MCG TABLET GT SCH (04:51)
[2022-02-27] MEDS: RASPBERRY SYRUP 5 ML UDP PO SCH ×4 (04:51→23:41)
[2022-02-27 06:23] LABS: Hematocrit (blood only) 33.2 % (37-47); Hemoglobin 10.5 g/dL (12.0-16.0); Mean Corpuscular Hemoglobin 26.6 pg (25-34); Mean Corpuscular Hgb Conc 31.6 g/dL (32-36); Mean Corpuscular Volume 84.1 fL (80-100); Mean Platelet Volume 10.6 fL (7.4-10.4); Platelet Count 253 K/uL (130-400); RDW Coefficient of Variation 13.4 % (11.5-14.5); RDW Standard Deviation 41.1 fL (36.4-46.3); Red Blood Count 3.95 M/uL (4.2-5.4); White Blood Count 3.79 K/uL (4.8-10.8)
[2022-02-27 06:41] LABS: BUN Creatinine Ratio 34.8 (10-20); Calcium 8.7 mg/dl (8.5-10.1); Est GFR (African American) 111.2 ml/min; Magnesium 1.7 mg/dl (1.7-2.4); Potassium 3.5 mmol/L (3.5-5.1)
[2022-02-27] MEDS: CHECK fentaNYL PATCH PLACEMENT SCH ×3 (07:58→23:40)
[2022-02-27] MEDS: RILUZOLE PO SCH ×2 (07:59→19:30)
[2022-02-27] MEDS: guaiFENesin SUGAR FREE 200 MG/10 ML UDC GT PRN (07:59)
[2022-02-27] MEDS: GLYCOPYRROLATE 1 MG TAB PO SCH ×3 (08:00→19:29)
[2022-02-27] MEDS: LANSOPRAZOLE 30 MG SOLTAB GT SCH ×2 (08:00→19:29)
[2022-02-27] MEDS: SACCHAROMYCES BOULARDII 250 MG CAP PO SCH (08:00)
[2022-02-27] MEDS: LOSARTAN POTASSIUM 50 MG TAB GT SCH (08:00)
[2022-02-27] MEDS: FAMOTIDINE SUSP 40 MG/5 ML UDP PO SCH (08:01)
[2022-02-27] MEDS: ENOXAPARIN INJ 40 MG/0.4 ML SYR SQ SCH (08:01)
[2022-02-27] MEDS: LORazepam 1 MG TAB PEG PRN ×2 (08:06→19:31)
[2022-02-27] MEDS ORDERED: POTASSIUM CHLORIDE 20 MEQ/15 ML UDC PEG STA (08:16)
[2022-02-27] MEDS: LABETALOL HCL IV 5 MG/ML 20ML IV PRN (09:48)
[2022-02-27] MEDS ORDERED: HYDROmorphone HCL 2 MG TAB PO SCH (10:00)
[2022-02-27] MEDS: cefTRIAXone SODIUM 2,000 MG in DEXTROSE 5% 50 ML IV SCH (12:18)
--- NOTE | 2022-02-27 12:22 | Hospitalist Progress Note ---
Date of Service February 27, 2022 Assessment & Plan (1) Encephalopathy: (2) Acute UTI: Plan: 76 yo F w/ PMH of hypertension, ALS, aspiration with status post PEG tube placement, chronic pain on fentanyl patch, breast cancer status post surgery, recurrent UTIs on chronic methenamine suppression Rx/ chronic indwelling Rodriguez catheter/possible interstitial cystitis as per records,history DVT sp Xarelto, chronic anemia (baseline hemoglobin 10-11), history recurrent C. difficile ongoing vancomycin course, anxiety/mood disorder, past tobacco abuse presented due to episodes of agitation and pulling at PEG tube, more confused than usual. She is being managed for the following: #. Metabolic encephalopathy vs toxic metabolic encephalopathy: resolved. #. CAUTI Patient presented with confusion, was found to have UTI in ED. Confusion likely related to her recurrent UTI/complex comorbidities/multiple neuropsychotropic medications and pain medications that she is requiring. Patient had history of allergy to meropenem in December 2021 at [facility]. Patient has been admitted Multiple times to the hospital for recurrent UTI and C. difficile in the past. Admitting urinalysis suggestive of UTI, Cx showing K. oxytoca and another GNB Zosyn 02/26---> Rocephin 02/27. Continue to hold neuropsychotropic meds as able. #. Recurrent diagnosis of C diffcurrently under vanc po Patient had recent confinement at [facility] for February 15 to for AMS, UTI was ruled out, vancomycin course for C. difficile was extended until March 05, 2022. #. PEG tube concerns PEG tube in place per x-ray, not secure. GI on board, appreciate recommendation. Plan to exchange tube today. #. Other chronic medical conditions:ALS, PEG tube feeding ALS care including suction, anticholinergics, riluzole as able. Dietitian consult for PEG tube feeding. As needed meds for hypertension, expect to have better control with improvement in her infection/resuming of her pain medication gradually. #. DVT prophylaxis:lovenox subcu #. DNR DNI Dispo: High risk for readmission. Due to poor prognosis, involving hospice might be a better idea, it has been discussed in the past. Palliative care consult. CM to assist w/ DC planning. Should be able to DC tomorrow if no new issues arise. Admission and Anticipated Discharge Date Admission Date: February 25, 2022 Subjective Patient seen and examined at bedside as a follow-up of metabolic versus toxic encephalopathy, catheter associated UTI on the background of progressive ALS. Patient was sitting up in bed, on room air, AOx3, can't articulate clearly, NAD, no new acute events overnight per RN, reports no pain, denies headache or dizziness, denies chest pain. Physical Exam Physical Exam: GENERAL: Alert and awake. NAD, on RA HEENT: No pallor, no icterus. Pupils equal, round and reactive to light. Oral mucosa moist. NECK: No JVD, no neck masses. HEART: S1 and S2 heard. Regular rate and rhythm. No murmur, no gallop. RESPIRATORY SYSTEM: Normal AP diameter. No accessory muscle use. No wheezing, no crackles, decreased breath sounds ABDOMEN: Soft, bowel sounds present, nontender, no distention. PEG tube in place. Port of entry healthy w/o signs of infection. CENTRAL NERVOUS SYSTEM: No facial droop. Speech is clear. Obeys simple commands. EXTREMITIES: No edema, no erythema seen. UC cath in situ w/ yellow urine collection noted. Results & Data Results & Data ([facility]) Vital Signs (Past 12 Hours) Vital Signs Temp Pulse Resp BP Pulse Ox 02/27/22 07:32 36.7 C 83 18 201/84 H 94 02/27/22 03:05 36.8 C 75 17 146/74 H 96
--- NOTE | 2022-02-27 13:05 | Gastroenterology Progress Note ---
Date of Service February 27, 2022 Assessment & Plan (1) PEG (percutaneous endoscopic gastrostomy) status: (2) ALS (amyotrophic lateral sclerosis): Plan: 76 y/o female with ALS, admitted with change in mental status, UTI, we are consulted for concern over PEG tube. KUB shows it to be in place and bumper was adjusted yesterday. Feeds are infusing without issue. On exam, PEG in place, soft abd. Family and nurse state having issue with detaching/attaching items to the tube, requesting tube change. - Hold feeds/meds - Will plan on changing tube later today Thank you for allowing us to participate in the care of this patient. Please call with any acute changes, questions or concerns. Please see addendum below with additional recommendation from my supervising physician. Admission and Anticipated Discharge Date Admission Date: February 25, 2022 Supervising Physician Co-Signing Physician Notes I performed a history and physical examination of the patient today, including specifically on physical exam - soft abdomen. I have discussed the patient's management with the advanced practitioner. Please refer to the nurse practitioner's note for the documented findings and plan of care. After discussing with patient and her family the available type of PEG tubes, the current available tube at [facility] is not compatible with the tubing they have. We all decided to schedule her as OP at out GI office to change her tune to a [place] tube ([id number]). The current tube is working fine with no issues after I adjusted the bumper. Recall GI if needed. Subjective Patient seen and examined, chart reviewed. No acute events overnight. Pt and nurse reporting problems with the PEG tube - they said the tube turns and makes it difficult to attach/detach syringe/feeds from it. They are asking for a new tube. Review of Systems Review of Systems: Unobtainable due to cognitive status Physical Exam Eyes: PERRL, conjunctivae normal, anicteric sclerae Respiratory: normal respiratory effort, lungs clear to auscultation Cardiovascular: RRR, no murmur, no edema Gastrointestinal (Abdomen): normal bowel sounds, soft, nontender, no hepatosplenomegaly (PEG in place LUQ; site is C/D, + granulation tissue) Skin: no rashes, warm and dry Results & Data ([facility]) Vital Signs (Past 12 Hours) Vital Signs Temp Pulse Pulse Resp BP Pulse Ox 02/27/22 12:22 36.7 C 68 22 170/73 H 95 02/27/22 08:00 94 H 02/27/22 07:32 36.7 C 83 18 201/84 H 94 02/27/22 03:05 36.8 C 75 17 146/74 H 96
[2022-02-27] MEDS: guaiFENesin SUGAR FREE 200 MG/10 ML UDC GT SCH ×4 (13:09→23:40)
[2022-02-27] MEDS ORDERED: LORazepam 2 MG/1 ML VIAL IV PRN (16:22)
[2022-02-27] MEDS ORDERED: LORazepam 0.5 mg IV INJ IV PRN (17:02)
[2022-02-27] MEDS ORDERED: LORazepam 0.5 MG in SYRINGE 0.25 ML IV PRN (17:06)
[2022-02-27] MEDS: LACTOBACILLUS ACIDOPHILUS 1 GM PACK PEG SCH (19:30)
[2022-02-27] MEDS: HYDROmorphone HCL 2 MG TAB PO PRN (19:31)
[2022-02-27] MEDS ORDERED: fentaNYL 50 MCG/HR TDSY TD SCH (21:00)
[2022-02-27] MEDS: CHOLESTYRAMINE LIGHT 4 GM PKT PO PRN (21:02)
[2022-02-28] MEDS: HYDROmorphone HCL 2 MG TAB PO PRN ×2 (00:33→20:14)
[2022-02-28] MEDS: TUBE FEEDING WATER FLUSH PEG SCH ×6 (00:51→20:20)
[2022-02-28] MEDS: RASPBERRY SYRUP 5 ML UDP PO SCH ×3 (05:34→17:15)
[2022-02-28] MEDS: VANCOMYCIN HCL 250 MG/5 ML SOLN PO SCH ×3 (05:34→17:15)
[2022-02-28] MEDS: ONDANSETRON 4 MG OD TAB PO SCH ×4 (05:34→20:19)
[2022-02-28] MEDS: LEVOTHYROXINE SODIUM 112 MCG TABLET GT SCH (05:35)
[2022-02-28] MEDS: guaiFENesin SUGAR FREE 200 MG/10 ML UDC GT SCH ×4 (05:37→18:35)
[2022-02-28 06:54] LABS: Hematocrit (blood only) 35.6 % (37-47); Hemoglobin 11.3 g/dL (12.0-16.0); Mean Corpuscular Hemoglobin 26.2 pg (25-34); Mean Corpuscular Hgb Conc 31.7 g/dL (32-36); Mean Corpuscular Volume 82.6 fL (80-100); Mean Platelet Volume 10.5 fL (7.4-10.4); Platelet Count 294 K/uL (130-400); RDW Coefficient of Variation 13.6 % (11.5-14.5); RDW Standard Deviation 41.4 fL (36.4-46.3); Red Blood Count 4.31 M/uL (4.2-5.4); White Blood Count 4.57 K/uL (4.8-10.8)
[2022-02-28 07:12] LABS: BUN Creatinine Ratio 28.9 (10-20); Calcium 9.1 mg/dl (8.5-10.1); Creatinine Clr Calc Pharmacy 98.9 ml/min; Est GFR (African American) 118.4 ml/min; Est GFR (Non-African American) 102.2 ml/min; Magnesium 1.8 mg/dl (1.7-2.4); Potassium 3.8 mmol/L (3.5-5.1)
[2022-02-28] MEDS: CHECK fentaNYL PATCH PLACEMENT SCH ×2 (07:59→15:13)
[2022-02-28] MEDS: SACCHAROMYCES BOULARDII 250 MG CAP PO SCH (09:14)
[2022-02-28] MEDS: LOSARTAN POTASSIUM 50 MG TAB GT SCH (09:14)
[2022-02-28] MEDS: GLYCOPYRROLATE 1 MG TAB PO SCH ×3 (09:14→20:19)
[2022-02-28] MEDS: LANSOPRAZOLE 30 MG SOLTAB GT SCH ×2 (09:14→20:19)
[2022-02-28] MEDS: FAMOTIDINE SUSP 40 MG/5 ML UDP PO SCH (09:14)
[2022-02-28] MEDS: RILUZOLE PO SCH ×2 (09:15→20:20)
[2022-02-28] MEDS: cefTRIAXone SODIUM 2,000 MG in DEXTROSE 5% 50 ML IV SCH (11:03)
[2022-02-28] MEDS: CHOLESTYRAMINE LIGHT 4 GM PKT PO PRN (11:04)
[2022-02-28] MEDS: DICYCLOMINE HCL 20 MG TAB PEG PRN (11:04)
--- NOTE | 2022-02-28 12:40 | Gastroenterology Progress Note ---
Date of Service February 28, 2022 Assessment & Plan Admission and Anticipated Discharge Date Admission Date: February 25, 2022 Subjective PEG tube exchanged at bedside after verbal consent from the patient and her fami ly. 18 Fr x 4 cm Radha button tube placed and position checked by auscultation. Can use the tube today. Recall GI if needed. Results & Data ([facility]) Vital Signs (Past 12 Hours) Vital Signs Temp Pulse Pulse Resp BP Pulse Ox 02/28/22 10:49 36.6 C 67 17 169/99 H 94 02/28/22 07:50 60 02/28/22 07:29 36.6 C 64 19 166/96 H 95 02/28/22 03:00 36.6 C 65 18 165/90 H 93
--- NOTE | 2022-02-28 13:00 | Palliative Care Consultation ---
Date of Consultation February 28, 2022 Assessment & Plan (1) Pain: Controlled on current regimen of fentanyl with prn hydromorphone. (2) Increased tracheal secretions: On routine glycopyrrolate and suction. This causes her much anxiety. One of her greatest fears is choking with secretions. (3) Anxiety: Takes lorazepam prn and hs for sleep (4) Palliative care encounter: I met with Elizabeth and her daughter, Shae, at bedside. They have had multiple discussions about goals of care in the past. Elizabeth is quite clear that she does not want resuscitation or intubation. She has had bipap in the past and was very uncomfortable and would not want that again either. She and her family recognize that she is in the end stages of her disease. They also understand that there are limitations to ability to treat recurrent UTIs with her multiple allergies and drug resistance. They asked me about hospice care agencies in the area. However, they do not want hospice care at this time. Elizabeth very much wants to be able to return to the hospital if needed. I talked with her about what her goal was with that and she tells me that she feels more comfortable in the hospital. She is very afraid of what would happen if she was choking on her secretions at home. I also asked her where she would want to be at her dying time and she said that she would prefer to be in the hospital. We talked about hospice support for symptom management, 24/03 availability and I told her that I think if she had hospice and got to know the team, she may feel more comfortable with being able to manage her symptoms at home. At this time, I think the best plan would be for her to have home care support from an agency that also provides hospice care to help with transition when needed. She will continue to follow with Dr. Wells as an outpatient. (5) ALS (amyotrophic lateral sclerosis): (6) Acute UTI: History of Present Illness Reason for Consultation: goals of care Requesting Physician: Dr. Merritt Attending Physician: Torres Rosen MD History of Present Illness 76 yo lady with ALS who has had multiple hospitalizations for recurrent UTIs, Cdiff and difficulty with secretions. She has been seen by palliative care on prior hospitalizations and is followed by [facility] outpatient palliative care. She was admitted on 02/25 with UTI and confusion. Her daughter reports that sometimes she picks at things when confused and her PEG tube was dislodged on admission. She has chronic pain in her back, shoulders, arms and legs and is on fentanyl patch with prn hydromorphone. Fentanyl was recently increased. She is using prn hydromorphone roughly once a day. She has had difficulty with tracheal secretions and has frequent suctioning. She has had multiple medications for secretions and is currently on routine glycopyrrolate. Her secretions are very thick and family sometimes has to manually remove them. She has not complained of difficulty with oral secretions, though her mouth is very dry. Allergies Allergy/AdvReac Type Severity Reaction Status Date / Time Iodinated Contrast Media Allergy Severe dyspnea Verified 02/25/22 20:53 azithromycin Allergy Intermediate rash Verified 02/25/22 20:53 cefaclor Allergy Intermediate hives Verified 02/25/22 20:53 erythromycin base Allergy Intermediate hives Verified 02/25/22 20:53 levalbuterol Allergy Intermediate chest pain Verified 02/25/22 20:53 minocycline Allergy Intermediate rash Verified 02/25/22 20:53 nitrofurantoin Allergy Intermediate possible Verified 02/25/22 20:53 hives or dyspnea phenazopyridine Allergy Intermediate dyspnea Verified 02/25/22 20:53 Sulfa (Sulfonamide Allergy Intermediate hives Verified 02/25/22 20:53 Antibiotics) oxycodone [From OxyContin] Allergy Unknown Unverified 02/25/22 20:53 meropenem AdvReac Severe Hives Verified 02/25/22 20:53 metronidazole AdvReac Intermediate GI symptoms Verified 02/25/22 20:53 morphine AdvReac Intermediate vomiting Verified 02/25/22 20:53 levofloxacin AdvReac Mild abdominal Verified 02/25/22 20:53 pain albuterol [From Ventolin HFA] AdvReac Chest Pain Unverified 02/25/22 20:53 iodine AdvReac Anaphylaxis Unverified 02/25/22 20:53 tramadol AdvReac Confusion Unverified 02/25/22 20:53 Home Medications Medication Instructions Recorded Confirmed Type losartan 50 mg tablet 100 mg FEEDING TUBE QAM 07/08/19 02/25/22 History lidocaine 5 % topical patch 1 patch TOPICAL DAILY PRN 07/22/21 02/25/22 History hydroxyzine HCl 25 mg tablet 25 mg FEEDING TUBE Q6 PRN 11/22/21 02/25/22 History levothyroxine 112 mcg tablet 112 mcg FEEDING TUBE DAILYBB 11/22/21 02/25/22 History riluzole 50 mg tablet 50 mg FEEDING TUBE BID 11/22/21 02/25/22 History albuterol sulfate 2.5 mg INHALATION Q4H PRN 12/16/21 02/25/22 History dicyclomine 20 mg tablet 20 mg FEEDING TUBE Q6H PRN 12/16/21 02/25/22 History lactobacillus combination no.4 3 0 mmu cells FEEDING TUBE HS 12/16/21 02/25/22 History billion cell capsule (Probiotic) levocetirizine 5 mg tablet (Xyzal) 5 mg FEEDING TUBE DAILY PRN 12/16/21 02/25/22 History menthol 0.44 %-zinc oxide 20.6 % 1 applic TOPICAL QID PRN 12/16/21 02/25/22 History topical ointment (Calmoseptine) ondansetron HCl 4 mg tablet 4 mg FEEDING TUBE Q6H 12/16/21 02/25/22 History lansoprazole 30 mg delayed 30 mg FEEDING TUBE BID #0 tab 12/28/21 02/25/22 Rx release,disintegrating tablet Guaifenesin 400mg/20ml 20 ml FEEDING TUBE Q4H PRN 01/10/22 02/25/22 History Saccharomyces boulardii 250 mg 250 mg FEEDING TUBE QAM 01/10/22 02/25/22 History capsule (Florastor) cholestyramine (with sugar) 4 gram 0.5 - 1 ea FEEDING TUBE BID PRN 01/10/22 02/25/22 History powder for susp in a packet famotidine 40 mg/5 mL (8 mg/mL) 40 mg FEEDING TUBE QAM 01/10/22 02/25/22 History oral suspension fluticasone propionate 50 2 spray INTRANASAL DAILY PRN 01/10/22 02/25/22 History mcg/actuation nasal spray,suspension gabapentin 100 mg capsule 100 mg FEEDING TUBE TID 01/10/22 02/25/22 History hydrocortisone 2.5 % topical cream 1 applic HI BID PRN 01/10/22 02/25/22 History with perineal applicator hydromorphone 2 mg tablet 1 mg FEEDING TUBE Q4H PRN 01/10/22 02/25/22 History (Dilaudid) hyoscyamine sulfate 0.125 mg 0.125 mg FEEDING TUBE Q4 PRN 01/10/22 02/25/22 History sublingual tablet lorazepam 1 mg tablet 1 mg FEEDING TUBE QID PRN 01/10/22 02/25/22 History mirtazapine 7.5 mg tablet 7.5 mg FEEDING TUBE HS PRN 01/10/22 02/25/22 History nystatin 100,000 unit/mL oral 10 ml PO TID PRN 01/10/22 02/25/22 History suspension simethicone 80 mg chewable tablet 160 mg FEEDING TUBE DAILY PRN 01/10/22 02/25/22 History methenamine hippurate 1 gram tablet 1 g PO BID #60 tab 01/17/22 02/25/22 Rx ascorbic acid (vitamin C) 500 mg 500 mg FEEDING TUBE QAM 01/27/22 02/25/22 History tablet (Vitamin C) diphenhydramine HCl 25 mg tablet 25 - 50 mg PO DAILY PRN 01/27/22 02/25/22 History (Benadryl Allergy) fentanyl 50 mcg/hr transdermal 50 mcg TRANSDERMAL [id number] 02/25/22 02/25/22 History patch glycopyrrolate 1 mg tablet 1 mg FEEDING TUBE TID 02/25/22 02/25/22 History vancomycin 50 mg/mL oral solution 250 mg PO Q6 02/25/22 02/25/22 History Patient History Medical History ALS (amyotrophic lateral sclerosis) Cancer left breast (2015) s/p left lumpectomy/XRT, no chemo Cervical stenosis of spinal canal Diarrhea GERD (gastroesophageal reflux disease) controlled, stable. Patient sleeps elevated HS. 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) "Abnormal left breast mammogram Status post stereotactic biopsy 11/14/2015 revealing DCIS grade 1 Estrogen receptor positive and progesterone receptor positive Status post needle localization lumpectomy 12/20/2015 Stage pTis pNX Status post completion of radiation therapy 03/01/2016 received 3850 cGy utilizing accelerated partial breast irradiation." On 03/14/16 11:36 Ese M Rick wrote "Abnormal left breast mammogram Status post stereotactic biopsy 11/14/2015 revealing DCIS grade 1 Estrogen receptor positive and progesterone receptor positive Status post needle localization lumpectomy 12/20/2015 Stage pTis pNX Status post completion of radiation therapy 03/01/2016 received 3850 cGy utilizing accelerated partial breast irradiation." On 02/01/16 11:23 Ese Lei Rick wrote "Abnormal left breast mammogram Status post stereotactic biopsy 11/14/2015 revealing DCIS grade 1 Estrogen receptor positive and progesterone receptor positive Status post needle localization lumpectomy 12/20/2015 Stage pTis pNX" Lab test negative for COVID-19 virus Nausea Osteoarthritis Palliative care encounter SOB (shortness of breath) Surgical History H/O foot surgery R ORIF History of appendectomy History of carpal tunnel release R/L History of colectomy D/T DIVERTICULITIS History of colonoscopy MULTIPLE History of D&C D&C, hysteroscopy: 10/24/17: LMA# 4 at [facility] History of esophagogastroduodenoscopy (EGD) History of lumpectomy of left breast 2015 History of tonsillectomy S/P percutaneous endoscopic gastrostomy (PEG) tube placement Family History Mother Breast cancer Social History Smoking Status: Former smoker Tobacco Type: Cigarettes Second Hand Exposure: No; Hx Alcohol Use: No Hx Substance Use: No Preferred Language: Greenlandic Communication Ability: Impaired Communication Ability Comment: garbled speech Project Structural Engineer Required: No Beliefs That Will Affect Care: None marital status: Current Living Situation: Spouse and Family Current Living Situation Comment: and daughter Other Information That Helps Us Care for You: No Feels Safe at Home: Yes Safety Concerns: Feels Safe At This Time Assistive Devices: Mechanical Lift Assistive Devices Comment: suction machine Review of Systems Review of Systems: ESAS Pain 1/3 Dyspnea 0/3 Anxiety 2/3 Fatigue 2/3 Nausea 9/3 PPS 30% Physical Exam Constitutional: + ill appearing; no acute distress ENMT: Mouth: + dry oral mucous membranes Respiratory: normal respiratory effort; no labored breathing Gastrointestinal (Abdomen): PEG tube Musculoskeletal: contractures LUE Neurologic: Speech / Cognition: normal cognition left sided weakness Results & Data ([facility]) Vital Signs (Past 12 Hours) Vital Signs Temp Pulse Pulse Resp BP Pulse Ox 02/28/22 10:49 97.9 F 67 17 169/99 H 94 02/28/22 07:50 60 02/28/22 07:29 97.9 F 64 19 166/96 H 95 02/28/22 03:00 97.9 F 65 18 165/90 H 93 PG Care Time/CCT Total # of Minutes Spent Total Time Spent: 60 Total Time Spent with Patient: Total time spent is greater than 50% in coordination of care (as documented) at patient's floor/unit and/or counseling patient: goals of care, symptom management, patient and family education and support Coding Level of Care Code 95305 Initial Inpt Care Lvl 2 Diagnoses Pain R52 Increased tracheal secretions J39.8 Anxiety F41.9 Palliative care encounter Z51.5 ALS (amyotrophic lateral sclerosis) G12.21 Acute UTI N39.0
[2022-02-28] MEDS: ENOXAPARIN INJ 40 MG/0.4 ML SYR SQ SCH (15:12)
[2022-02-28] MEDS: LORazepam 1 MG TAB PEG PRN ×2 (15:12→20:14)
--- NOTE | 2022-02-28 16:37 | Hospitalist Progress Note ---
Date of Service February 28, 2022 Assessment & Plan (1) Encephalopathy: (2) Acute UTI: Plan: 76 yo F w/ PMH of hypertension, ALS, aspiration with status post PEG tube placement, chronic pain on fentanyl patch, breast cancer status post surgery, recurrent UTIs on chronic methenamine suppression Rx/ chronic indwelling Rodriguez catheter/possible interstitial cystitis as per records,history DVT sp Xarelto, chronic anemia (baseline hemoglobin 10-11), history recurrent C. difficile ongoing vancomycin course, anxiety/mood disorder, past tobacco abuse presented due to episodes of agitation and pulling at PEG tube, more confused than usual. She is being managed for the following: #. Metabolic encephalopathy vs toxic metabolic encephalopathy: resolved. #. CAUTI Patient presented with confusion, was found to have UTI in ED. Confusion likely related to her recurrent UTI/complex comorbidities/multiple neuropsychotropic medications and pain medications that she is requiring. Patient had history of allergy to meropenem in December 2021 at [facility]. Patient has been admitted Multiple times to the hospital for recurrent UTI and C. difficile in the past. Admitting urinalysis suggestive of UTI, Cx showing K. oxytoca and Ecoli Zosyn 02/26---> Rocephin 02/27. Continue to hold neuropsychotropic meds as able. #. Recurrent diagnosis of C diffcurrently under vanc po Patient had recent confinement at [facility] for February 15 to for AMS, UTI was ruled out, vancomycin course for C. difficile was extended until March 05, 2022. #. PEG tube concerns PEG tube in place per x-ray, not secure. PEG tube exchanged 02/28/22 at bedside by GI service. #. Other chronic medical conditions:ALS, PEG tube feeding ALS care including suction, anticholinergics, riluzole as able. Dietitian consult for PEG tube feeding. As needed meds for hypertension, expect to have better control with improvement in her infection/resuming of her pain medication gradually. #. DVT prophylaxis:lovenox subcu #. DNR DNI Dispo: High risk for readmission. Due to poor prognosis, involving hospice might be a better idea, d/w palliative, family not ready for hospice. CM to assist w/ DC planning. Stable for DC. Awaiting Home Health placement. Admission and Anticipated Discharge Date Admission Date: February 25, 2022 Subjective Patient seen and examined at bedside as a follow-up of metabolic versus toxic encephalopathy, catheter associated UTI on the background of progressive ALS. Patient was sitting up in bed, on room air, AOx3, can't articulate clearly, NAD, no new acute events overnight per RN, reports no pain, denies headache or dizziness, denies chest pain. Dtr at bedside, updated on pt's status. Later in the day, PEG tube exchanged at bedside by GI service. Physical Exam Physical Exam: GENERAL: Alert and awake. NAD, on RA HEENT: No pallor, no icterus. Pupils equal, round and reactive to light. Oral mucosa moist. NECK: No JVD, no neck masses. HEART: S1 and S2 heard. Regular rate and rhythm. No murmur, no gallop. RESPIRATORY SYSTEM: Normal AP diameter. No accessory muscle use. No wheezing, no crackles, decreased breath sounds ABDOMEN: Soft, bowel sounds present, nontender, no distention. PEG tube in place. Port of entry healthy w/o signs of infection. CENTRAL NERVOUS SYSTEM: No facial droop. Speech is clear. Obeys simple commands. EXTREMITIES: No edema, no erythema seen. UC cath in situ w/ yellow urine collection noted. Results & Data Results & Data ([facility]) Vital Signs (Past 12 Hours) Vital Signs Temp Pulse Pulse Resp BP Pulse Ox 02/28/22 15:53 36.6 C 71 19 177/90 H 94 02/28/22 15:38 72 02/28/22 10:49 36.6 C 67 17 169/99 H 94 02/28/22 07:50 60 02/28/22 07:29 36.6 C 64 19 166/96 H 95
[2022-02-28] MEDS: LACTOBACILLUS ACIDOPHILUS 1 GM PACK PEG SCH (20:19)
[2022-02-28] MEDS: LABETALOL HCL IV 5 MG/ML 20ML IV PRN (20:23)
[2022-02-28] MEDS: fentaNYL 50 MCG/HR TDSY TD SCH (20:25)
[2022-03-01] MEDS: CHECK fentaNYL PATCH PLACEMENT SCH ×4 (00:01→23:00)
[2022-03-01] MEDS: RASPBERRY SYRUP 5 ML UDP PO SCH ×4 (00:01→18:36)
[2022-03-01] MEDS: VANCOMYCIN HCL 250 MG/5 ML SOLN PO SCH ×4 (00:01→18:36)
[2022-03-01] MEDS: guaiFENesin SUGAR FREE 200 MG/10 ML UDC GT SCH ×6 (00:01→22:59)
[2022-03-01] MEDS: TUBE FEEDING WATER FLUSH PEG SCH ×6 (00:01→23:00)
[2022-03-01] MEDS: ONDANSETRON 4 MG OD TAB PO SCH ×4 (04:46→23:00)
[2022-03-01] MEDS: LEVOTHYROXINE SODIUM 112 MCG TABLET GT SCH (05:57)
[2022-03-01 06:56] LABS: Hematocrit (blood only) 35.6 % (37-47); Hemoglobin 11.2 g/dL (12.0-16.0); Mean Corpuscular Hgb Conc 31.5 g/dL (32-36); Mean Corpuscular Volume 82.8 fL (80-100); Platelet Count 308 K/uL (130-400); RDW Coefficient of Variation 13.7 % (11.5-14.5); RDW Standard Deviation 41.5 fL (36.4-46.3); White Blood Count 6.31 K/uL (4.8-10.8)
[2022-03-01 07:20] LABS: BUN Creatinine Ratio 32.4 (10-20); Calcium 9.2 mg/dl (8.5-10.1); Creatinine Clr Calc Pharmacy 98.4 ml/min; Est GFR (African American) 119.5 ml/min; Est GFR (Non-African American) 103.1 ml/min; Magnesium 1.8 mg/dl (1.7-2.4); Phosphorus 3.4 mg/dl (2.5-4.9); Potassium 3.7 mmol/L (3.5-5.1)
[2022-03-01] MEDS: DICYCLOMINE HCL 20 MG TAB PEG PRN (08:36)
[2022-03-01] MEDS: SACCHAROMYCES BOULARDII 250 MG CAP PO SCH (08:36)
[2022-03-01] MEDS: GLYCOPYRROLATE 1 MG TAB PO SCH ×3 (08:36→20:24)
[2022-03-01] MEDS: LOSARTAN POTASSIUM 50 MG TAB GT SCH (08:36)
[2022-03-01] MEDS: MULTI VIT W/MINERALS LIQUID 15 ML UDP PO SCH (08:37)
[2022-03-01] MEDS: LANSOPRAZOLE 30 MG SOLTAB GT SCH ×2 (08:37→20:24)
[2022-03-01] MEDS: RILUZOLE PO SCH ×2 (08:37→20:25)
[2022-03-01] MEDS: FAMOTIDINE SUSP 40 MG/5 ML UDP PO SCH (08:37)
[2022-03-01] MEDS: ENOXAPARIN INJ 40 MG/0.4 ML SYR SQ SCH (11:03)
[2022-03-01] MEDS: cefTRIAXone SODIUM 2,000 MG in DEXTROSE 5% 50 ML IV SCH (11:04)
--- NOTE | 2022-03-01 16:41 | Hospitalist Progress Note ---
Date of Service March 01, 2022 Assessment & Plan (1) Encephalopathy: (2) Acute UTI: Plan: 76 yo F w/ PMH of hypertension, ALS, aspiration with status post PEG tube placement, chronic pain on fentanyl patch, breast cancer status post surgery, recurrent UTIs on chronic methenamine suppression Rx/ chronic indwelling Rodriguez catheter/possible interstitial cystitis as per records,history DVT sp Xarelto, chronic anemia (baseline hemoglobin 10-11), history recurrent C. difficile ongoing vancomycin course, anxiety/mood disorder, past tobacco abuse presented due to episodes of agitation and pulling at PEG tube, more confused than usual. She is being managed for the following: #. Metabolic encephalopathy vs toxic metabolic encephalopathy: resolved. #. CAUTI Patient presented with confusion, was found to have UTI in ED. Confusion likely related to her recurrent UTI/complex comorbidities/multiple neuropsychotropic medications and pain medications that she is requiring. Patient had history of allergy to meropenem in December 2021 at [facility]. Patient has been admitted Multiple times to the hospital for recurrent UTI and C. difficile in the past. Admitting urinalysis suggestive of UTI, Cx showing K. oxytoca and Ecoli Zosyn 02/26 (intermediate sensitive to orgs in UCx)---> Rocephin 02/27--> cefdinir from 7/2 AM #. Recurrent diagnosis of C diffcurrently under vanc po Patient had recent confinement at [facility] [place] [place] for February 15 to for AMS, UTI was ruled out, vancomycin course for C. difficile was extended until March 05, 2022. #. PEG tube concerns PEG tube in place per x-ray, not secure. PEG tube exchanged 02/28/22 at bedside by GI service. #. Other chronic medical conditions:ALS, PEG tube feeding ALS care including suction, anticholinergics, riluzole as able. Dietitian consult for PEG tube feeding. As needed meds for hypertension, expect to have better control with improvement in her infection/resuming of her pain medication gradually. #. DVT prophylaxis:lovenox subcu #. DNR DNI to med/surg Dispo: High risk for readmission. Due to poor prognosis, involving hospice might be a better idea, d/w palliative, family not ready for hospice. CM to assist w/ DC planning. Stable for DC. Awaiting Home Health placement. Admission and Anticipated Discharge Date Admission Date: February 25, 2022 Subjective Patient seen and examined at bedside as a follow-up of metabolic versus toxic encephalopathy, catheter associated UTI on the background of progressive ALS. Patient was sitting up in bed, on room air, AOx3, can't articulate clearly, NAD, no new acute events overnight per RN, reports no pain, denies headache or dizziness, denies chest pain. at bedside, updated on pt's status. Physical Exam Physical Exam: GENERAL: Alert and awake. NAD, on RA HEENT: No pallor, no icterus. Pupils equal, round and reactive to light. Oral mucosa moist. NECK: No JVD, no neck masses. HEART: S1 and S2 heard. Regular rate and rhythm. No murmur, no gallop. RESPIRATORY SYSTEM: Normal AP diameter. No accessory muscle use. No wheezing, no crackles, decreased breath sounds ABDOMEN: Soft, bowel sounds present, nontender, no distention. PEG tube in place. Port of entry healthy w/o signs of infection. CENTRAL NERVOUS SYSTEM: No facial droop. Speech is clear. Obeys simple commands. EXTREMITIES: No edema, no erythema seen. UC cath in situ w/ yellow urine collection noted. Results & Data Results & Data ([facility]) Vital Signs (Past 12 Hours) Vital Signs Temp Pulse Pulse Resp BP Pulse Ox 03/01/22 15:57 36.8 C 73 20 156/88 H 93 03/01/22 15:55 71 03/01/22 11:44 36.4 C L 72 22 166/83 H 95 03/01/22 08:33 36.4 C L 59 L 16 159/66 H 94 03/01/22 08:00 76
[2022-03-01] MEDS: hydrOXYzine HCl 25 MG TAB GT PRN (17:08)
[2022-03-01] MEDS: LORazepam 1 MG TAB PEG PRN (18:10)
[2022-03-01] MEDS: LACTOBACILLUS ACIDOPHILUS 1 GM PACK PEG SCH (20:24)
[2022-03-01] MEDS: HYDROmorphone HCL 2 MG TAB PO PRN (22:57)
[2022-03-01] MEDS: LORazepam 0.5 MG TAB PO PRN (22:59)
[2022-03-02] MEDS: VANCOMYCIN HCL 250 MG/5 ML SOLN PO SCH (00:23)
[2022-03-02] MEDS: RASPBERRY SYRUP 5 ML UDP PO SCH (00:24)
[2022-03-02] MEDS: TUBE FEEDING WATER FLUSH PEG SCH ×6 (02:00→21:57)
[2022-03-02] MEDS: ONDANSETRON 4 MG OD TAB PO SCH ×4 (04:44→22:44)
[2022-03-02] MEDS: VANCOMYCIN HCL 250 MG/5 ML SOLN PEG SCH ×4 (06:16→23:38)
[2022-03-02] MEDS: LEVOTHYROXINE SODIUM 112 MCG TABLET GT SCH (06:16)
[2022-03-02] MEDS: guaiFENesin SUGAR FREE 200 MG/10 ML UDC GT SCH ×5 (09:25→23:36)
[2022-03-02] MEDS: CEFDINIR SUSP 250 MG/5 ML PO SCH ×2 (09:25→21:55)
[2022-03-02] MEDS: FAMOTIDINE SUSP 40 MG/5 ML UDP PO SCH (09:25)
[2022-03-02] MEDS: MULTI VIT W/MINERALS LIQUID 15 ML UDP PO SCH (09:25)
[2022-03-02] MEDS: SACCHAROMYCES BOULARDII 250 MG CAP PO SCH (09:26)
[2022-03-02] MEDS: CHECK fentaNYL PATCH PLACEMENT SCH ×3 (09:26→23:39)
[2022-03-02] MEDS: LORazepam 0.5 MG TAB PO PRN ×2 (09:27→18:29)
[2022-03-02] MEDS: LANSOPRAZOLE 30 MG SOLTAB GT SCH ×2 (09:27→21:55)
[2022-03-02] MEDS: GLYCOPYRROLATE 1 MG TAB PO SCH ×3 (09:27→21:55)
[2022-03-02] MEDS: LOSARTAN POTASSIUM 50 MG TAB GT SCH (09:28)
[2022-03-02] MEDS: RILUZOLE PO SCH ×2 (09:28→21:55)
[2022-03-02] MEDS: ENOXAPARIN INJ 40 MG/0.4 ML SYR SQ SCH (09:35)
[2022-03-02] MEDS: hydrOXYzine HCl 25 MG TAB GT PRN ×2 (11:02→18:29)
[2022-03-02] MEDS: HYDROmorphone HCL 2 MG TAB PO PRN ×2 (11:02→21:51)
--- NOTE | 2022-03-02 17:56 | Hospitalist Progress Note ---
Date of Service March 02, 2022 Assessment & Plan (1) Encephalopathy: (2) Acute UTI: Plan: 76 yo F w/ PMH of hypertension, ALS, aspiration with status post PEG tube placement, chronic pain on fentanyl patch, breast cancer status post surgery, recurrent UTIs on chronic methenamine suppression Rx/ chronic indwelling Rodriguez catheter/possible interstitial cystitis as per records,history DVT sp Xarelto, chronic anemia (baseline hemoglobin 10-11), history recurrent C. difficile ongoing vancomycin course, anxiety/mood disorder, past tobacco abuse presented due to episodes of agitation and pulling at PEG tube, more confused than usual. She is being managed for the following: #. Metabolic encephalopathy vs toxic metabolic encephalopathy: resolved. #. CAUTI Patient presented with confusion, was found to have UTI in ED. Confusion likely related to her recurrent UTI/complex comorbidities/multiple neuropsychotropic medications and pain medications that she is requiring. Patient had history of allergy to meropenem in December 2021 at [facility]. Patient has been admitted Multiple times to the hospital for recurrent UTI and C. difficile in the past. Admitting urinalysis suggestive of UTI, Cx showing K. oxytoca and Ecoli Zosyn 02/26 (intermediate sensitive to orgs in UCx)---> Rocephin 02/27--> cefdinir from 7/2 AM. Pt w/o any reaction to cefdinir, c/t monitor #. Recurrent diagnosis of C diffcurrently under vanc po Patient had recent confinement at [facility] [place] for February 15 to for AMS, UTI was ruled out, vancomycin course for C. difficile was extended until March 05, 2022. #. PEG tube concerns PEG tube in place per x-ray, not secure. PEG tube exchanged 02/28/22 at bedside by GI service. #. Other chronic medical conditions:ALS, PEG tube feeding ALS care including suction, anticholinergics, riluzole as able. Dietitian consult for PEG tube feeding. As needed meds for hypertension, expect to have better control with improvement in her infection/resuming of her pain medication gradually. #. DVT prophylaxis:lovenox subcu #. DNR DNI to med/surg Dispo: High risk for readmission. Due to poor prognosis, involving hospice might be a better idea, d/w palliative, family not ready for hospice. CM to assist w/ DC planning. Stable for DC. Awaiting Home Health placement. Admission and Anticipated Discharge Date Admission Date: February 25, 2022 Subjective Patient seen and examined at bedside as a follow-up of metabolic versus toxic encephalopathy, catheter associated UTI on the background of progressive ALS. Patient was sitting up in bed, on room air, AOx3, can't articulate clearly, NAD, no new acute events overnight per RN, reports no pain, denies headache or dizziness, denies chest pain. at bedside, updated on pt's status. Physical Exam Physical Exam: GENERAL: Alert and awake. NAD, on RA HEENT: No pallor, no icterus. Pupils equal, round and reactive to light. Oral mucosa moist. NECK: No JVD, no neck masses. HEART: S1 and S2 heard. Regular rate and rhythm. No murmur, no gallop. RESPIRATORY SYSTEM: Normal AP diameter. No accessory muscle use. No wheezing, no crackles, decreased breath sounds ABDOMEN: Soft, bowel sounds present, nontender, no distention. PEG tube in place. Port of entry healthy w/o signs of infection. CENTRAL NERVOUS SYSTEM: No facial droop. Speech is clear. Obeys simple commands. EXTREMITIES: No edema, no erythema seen. UC cath in situ w/ yellow urine collection noted. Results & Data Results & Data ([facility]) Vital Signs (Past 12 Hours) Vital Signs Temp Pulse Resp BP Pulse Ox 03/02/22 15:09 36.9 C 76 16 135/79 93 03/02/22 07:21 36.6 C 72 14 149/87 H 95
[2022-03-02] MEDS: LACTOBACILLUS ACIDOPHILUS 1 GM PACK PEG SCH (21:55)
[2022-03-03] MEDS: TUBE FEEDING WATER FLUSH PEG SCH ×6 (01:04→21:37)
[2022-03-03] MEDS: ONDANSETRON 4 MG OD TAB PO SCH ×4 (04:42→21:33)
[2022-03-03] MEDS: VANCOMYCIN HCL 250 MG/5 ML SOLN PEG SCH ×3 (06:02→17:30)
[2022-03-03] MEDS: FIBERSOURCE HN 1.2 CAL 1000 ML BAG GT SCH (06:02)
[2022-03-03] MEDS: guaiFENesin SUGAR FREE 200 MG/10 ML UDC GT SCH ×5 (06:03→21:36)
[2022-03-03] MEDS: LEVOTHYROXINE SODIUM 112 MCG TABLET GT SCH (06:03)
[2022-03-03] MEDS: CHECK fentaNYL PATCH PLACEMENT SCH ×2 (07:51→17:25)
[2022-03-03] MEDS: GLYCOPYRROLATE 1 MG TAB PO SCH ×3 (09:06→21:36)
[2022-03-03] MEDS: LANSOPRAZOLE 30 MG SOLTAB GT SCH ×2 (09:06→21:36)
[2022-03-03] MEDS: FAMOTIDINE SUSP 40 MG/5 ML UDP PO SCH (09:07)
[2022-03-03] MEDS: CEFDINIR SUSP 250 MG/5 ML PO SCH ×2 (09:07→21:36)
[2022-03-03] MEDS: MULTI VIT W/MINERALS LIQUID 15 ML UDP PO SCH (09:07)
[2022-03-03] MEDS: SACCHAROMYCES BOULARDII 250 MG CAP PO SCH (09:07)
[2022-03-03] MEDS: LOSARTAN POTASSIUM 50 MG TAB GT SCH (09:07)
[2022-03-03] MEDS: LORazepam 0.5 MG TAB PO PRN ×2 (09:08→14:08)
[2022-03-03] MEDS: RILUZOLE PO SCH ×2 (09:08→21:37)
[2022-03-03] MEDS: ENOXAPARIN INJ 40 MG/0.4 ML SYR SQ SCH (09:14)
[2022-03-03] MEDS: hydrOXYzine HCl 25 MG TAB GT PRN ×2 (11:23→21:33)
[2022-03-03] MEDS: DICYCLOMINE HCL 20 MG TAB PEG PRN (11:24)
[2022-03-03] MEDS ORDERED: MENTHOL-ZINC OXIDE 360 APPLN/120 GM TUBE EXT PRN (16:55)
--- NOTE | 2022-03-03 16:55 | Hospitalist Progress Note ---
Date of Service March 03, 2022 Assessment & Plan (1) Encephalopathy: (2) Acute UTI: Plan: 76 yo F w/ PMH of hypertension, ALS, aspiration with status post PEG tube placement, chronic pain on fentanyl patch, breast cancer status post surgery, recurrent UTIs on chronic methenamine suppression Rx/ chronic indwelling Rodriguez catheter/possible interstitial cystitis as per records,history DVT sp Xarelto, chronic anemia (baseline hemoglobin 10-11), history recurrent C. difficile ongoing vancomycin course, anxiety/mood disorder, past tobacco abuse presented due to episodes of agitation and pulling at PEG tube, more confused than usual. She is being managed for the following: #. Metabolic encephalopathy vs toxic metabolic encephalopathy: resolved. #. CAUTI Patient presented with confusion, was found to have UTI in ED. Confusion likely related to her recurrent UTI/complex comorbidities/multiple neuropsychotropic medications and pain medications that she is requiring. Patient had history of allergy to meropenem in December 2021 at [facility]. Patient has been admitted Multiple times to the hospital for recurrent UTI and C. difficile in the past. Admitting urinalysis suggestive of UTI, Cx showing K. oxytoca and Ecoli Zosyn 02/26 (intermediate sensitive to orgs in UCx)---> Rocephin 02/27--> cefdinir from 7/2 AM. Pt w/o any reaction to cefdinir, c/t monitor #. Recurrent diagnosis of C diffcurrently under vanc po Patient [place] [facility] [place] to for [place], UTI was ruled out, vancomycin course for C. difficile was extended until March 05, 2022. #. PEG tube concerns PEG tube in place per x-ray, not secure. PEG tube exchanged 02/28/22 at bedside by GI service. #. Other chronic medical conditions:ALS, PEG tube feeding ALS care including suction, anticholinergics, riluzole as able. Dietitian consult for PEG tube feeding. As needed meds for hypertension, expect to have better control with improvement in her infection/resuming of her pain medication gradually. #. DVT prophylaxis:lovenox subcu #. DNR DNI to med/surg Dispo: High risk for readmission. Due to poor prognosis, involving hospice might be a better idea, d/w palliative, family not ready for hospice. CM to assist w/ DC planning. Stable for DC. Awaiting Home Health placement. Admission and Anticipated Discharge Date Admission Date: February 25, 2022 Subjective Patient seen and examined at bedside as a follow-up of metabolic versus toxic encephalopathy, catheter associated UTI on the background of progressive ALS. Patient was sitting up in bed, on room air, AOx3, can't articulate clearly, NAD, no new acute events overnight per RN, reports low belly pain, reminded that she ask for pain meds as needed, denies headache or dizziness, denies chest pain. at bedside, updated on pt's status. Physical Exam Physical Exam: GENERAL: Alert and awake. NAD, on RA HEENT: No pallor, no icterus. Pupils equal, round and reactive to light. Oral mucosa moist. NECK: No JVD, no neck masses. HEART: S1 and S2 heard. Regular rate and rhythm. No murmur, no gallop. RESPIRATORY SYSTEM: Normal AP diameter. No accessory muscle use. No wheezing, no crackles, decreased breath sounds ABDOMEN: Soft, bowel sounds present, nontender, no distention. PEG tube in place. Port of entry healthy w/o signs of infection. CENTRAL NERVOUS SYSTEM: No facial droop. Speech is clear. Obeys simple commands. EXTREMITIES: No edema, no erythema seen. UC cath in situ w/ yellow urine collection noted. Results & Data Results & Data ([facility]) Vital Signs (Past 12 Hours) Vital Signs Temp Pulse Resp BP Pulse Ox 03/03/22 15:39 36.4 C L 69 16 153/78 H 94 03/03/22 07:21 36.9 C 69 18 156/68 H 95
[2022-03-03] MEDS: LORazepam 1 MG TAB PO PRN (18:26)
[2022-03-03] MEDS: fentaNYL 50 MCG/HR TDSY TD SCH (21:31)
[2022-03-03] MEDS: HYDROmorphone HCL 2 MG TAB PO PRN (21:33)
[2022-03-03] MEDS: LACTOBACILLUS ACIDOPHILUS 1 GM PACK PEG SCH (21:36)
[2022-03-04] MEDS: VANCOMYCIN HCL 250 MG/5 ML SOLN PEG SCH ×5 (00:11→22:58)
[2022-03-04] MEDS: CHECK fentaNYL PATCH PLACEMENT SCH ×4 (00:14→23:45)
[2022-03-04] MEDS: TUBE FEEDING WATER FLUSH PEG SCH ×6 (00:15→21:25)
[2022-03-04] MEDS: ONDANSETRON 4 MG OD TAB PO SCH ×4 (06:23→22:57)
[2022-03-04] MEDS: LEVOTHYROXINE SODIUM 112 MCG TABLET GT SCH (06:23)
[2022-03-04] MEDS: guaiFENesin SUGAR FREE 200 MG/10 ML UDC GT SCH ×5 (06:25→22:57)
[2022-03-04] MEDS: LOSARTAN POTASSIUM 50 MG TAB GT SCH (09:58)
[2022-03-04] MEDS: SACCHAROMYCES BOULARDII 250 MG CAP PO SCH (09:58)
[2022-03-04] MEDS: LORazepam 1 MG TAB PO PRN ×2 (09:58→21:30)
[2022-03-04] MEDS: ENOXAPARIN INJ 40 MG/0.4 ML SYR SQ SCH (09:59)
[2022-03-04] MEDS: FAMOTIDINE SUSP 40 MG/5 ML UDP PO SCH (09:59)
[2022-03-04] MEDS: CEFDINIR SUSP 250 MG/5 ML PO SCH ×2 (09:59→20:38)
[2022-03-04] MEDS: GLYCOPYRROLATE 1 MG TAB PO SCH ×4 (09:59→21:35)
[2022-03-04] MEDS: RILUZOLE PO SCH ×2 (09:59→20:38)
[2022-03-04] MEDS: MULTI VIT W/MINERALS LIQUID 15 ML UDP PO SCH (09:59)
[2022-03-04] MEDS: LANSOPRAZOLE 30 MG SOLTAB GT SCH ×2 (09:59→20:38)
[2022-03-04] MEDS: hydrOXYzine HCl 25 MG TAB GT PRN (10:01)
--- NOTE | 2022-03-04 15:29 | Hospitalist Progress Note ---
Date of Service March 04, 2022 Assessment & Plan (1) Encephalopathy: (2) Acute UTI: Plan: 76 yo F w/ PMH of hypertension, ALS, aspiration with status post PEG tube placement, chronic pain on fentanyl patch, breast cancer status post surgery, recurrent UTIs on chronic methenamine suppression Rx/ chronic indwelling Kenny catheter/possible interstitial cystitis as per records,history DVT sp Xarelto, chronic anemia (baseline hemoglobin 10-11), history recurrent C. difficile ongoing vancomycin course, anxiety/mood disorder, past tobacco abuse presented due to episodes of agitation and pulling at PEG tube, more confused than usual. She is being managed for the following: #. Metabolic encephalopathy vs toxic metabolic encephalopathy: resolved. #. CAUTI Patient presented with confusion, was found to have UTI in ED. Confusion likely related to her recurrent UTI/complex comorbidities/multiple neuropsychotropic medications and pain medications that she is requiring. Patient had history of allergy to meropenem in December 2021 at [facility]. Patient has been admitted Multiple times to the hospital for recurrent UTI and C. difficile in the past. Admitting urinalysis suggestive of UTI, Cx showing K. oxytoca and Ecoli Zosyn 02/26 (intermediate sensitive to orgs in UCx)---> Rocephin 02/27--> cefdinir from 7/2 AM and tolerating without issues Kenny changed today 03/04 #. Recurrent diagnosis of C diffcurrently under vanc po Patient had recent confinement at [facility] [place] for February 15 to for AMS, UTI was ruled out, vancomycin course for C. difficile was extended until March 05, 2022. #. PEG tube concerns PEG tube in place per x-ray, not secure. PEG tube exchanged 02/28/22 at bedside by GI service. #. Other chronic medical conditions:ALS, PEG tube feeding ALS care including suction, anticholinergics, riluzole as able. Dietitian eval for PEG tube feeding. DVT prophylaxis:sq lovenox Dispo: Medically stable for discharge- awaiting availability of home health for discharge. High risk for readmission. Due to poor prognosis, involving hospice might be a better idea- seen by palliative but patient and family not ready for hospice. Updated at bedside Admission and Anticipated Discharge Date Admission Date: February 25, 2022 Subjective She feels fine and wants to go home. Denies any active issues. asked if her kenny can be discontinued due to risk of recurrent UTI but patient as before did not want it removed for comfort. No diarrhea. No fever or chills. Secretions under control. Physical Exam Physical Exam: General: Sitting comfortably in bed, not in distress, on room air HEENT: EOMI, ALONDRA, MMM Chest: Clear breath sounds bilaterally, no wheezes or crackles CVS: Regular rate and rhythm, normal heart sounds, no murmur Abdomen: Soft, non tender, not distended, normal bowel sounds Neuro: Awake, alert, oriented, conversing well- left side flaccid as before Extremities: No cyanosis, clubbing or edema Results & Data Results & Data ([facility]) Vital Signs (Past 12 Hours) Vital Signs Temp Pulse Resp BP Pulse Ox 03/04/22 10:12 36.6 C 64 16 148/88 H 95 Medications Administered Current Inpatient Medications Calamine/Phenol (Menthol-Zinc Oxide 360 Appln/120 Gm Tube) 1 appln EXT BID PRN PRN Reason: skin irritation Stop: 04/02/22 20:59 Cefdinir (Cefdinir Susp 250 Mg/5 Ml) 300 mg PO BID [facility] Stop: 03/12/22 08:59 Last Admin: 03/04/22 09:59 Dose: 300 mg Documented by: Cetirizine HCl (Cetirizine Hcl 10 Mg Tablet) 5 mg PO DAILY PRN PRN Reason: Allergy Symptoms Stop: 03/28/22 00:27 Cholestyramine Resin (Cholestyramine Light 4 Gm Pkt) 4 gm PO BID PRN PRN Reason: Stool Bulking Stop: 03/28/22 15:38 Last Admin: 02/28/22 11:04 Dose: 4 gm Documented by: Dicyclomine HCl (Dicyclomine Hcl 20 Mg Tab) 20 mg PEG Q6H PRN PRN Reason: Diarrhea/abdominal pain Stop: 03/28/22 00:02 Last Admin: 03/03/22 11:24 Dose: 20 mg Documented by: Diphenhydramine HCl (Diphenhydramine Capsule 25 Mg Cap) 25 mg PO DAILY PRN PRN Reason: Allergy Symptoms Stop: 03/28/22 15:39 Enoxaparin Sodium (Enoxaparin Inj 40 Mg/0.4 Ml Syr) 40 mg SQ QAM DAIJA Stop: 03/28/22 08:59 Last Admin: 03/04/22 09:59 Dose: 40 mg Documented by: Enteral Nutritional Formula (Fibersource Hn 1.2 Kavon 1000 Ml Bag) 1,000 ml GT UD [facility]; Protocol Stop: 03/28/22 13:14 Last Admin: 03/03/22 06:02 Dose: 1,000 ml Documented by: Famotidine (Famotidine Susp 40 Mg/5 Ml Udp) 40 mg PO QAM [facility] Stop: 03/28/22 08:59 Last Admin: 03/04/22 09:59 Dose: 40 mg Documented by: Fentanyl (Fentanyl 50 Mcg/Hr Tdsy) 50 mcg TD Q3D@2100 [facility] Stop: 03/14/22 20:59 Last Admin: 03/03/22 21:31 Dose: 50 mcg Documented by: Fluticasone Propionate (Fluticasone Propionate Na Spr 16 Gm Btl) 2 sprays NA DAILY PRN PRN Reason: Allergy Symptoms Stop: 03/28/22 15:26 Glycopyrrolate (Glycopyrrolate 1 Mg Tab) 1 mg PO TID [facility] Stop: 03/28/22 08:59 Last Admin: 03/04/22 13:26 Dose: Not Given Documented by: Guaifenesin (Guaifenesin Sugar Free 200 Mg/10 Ml Udc) 400 mg GT [id number] [facility] Stop: 03/29/22 10:59 Last Admin: 03/04/22 12:10 Dose: 400 mg Documented by: Hydromorphone HCl (Hydromorphone Hcl 2 Mg Tab) 1 mg PO Q4H PRN PRN Reason: severe pain Stop: 03/13/22 09:59 Last Admin: 03/03/22 21:33 Dose: 1 mg Documented by: Hydroxyzine HCl (Hydroxyzine Hcl 25 Mg Tab) 25 mg GT Q6H PRN PRN Reason: Itching/anxiety/drying Stop: 03/28/22 00:36 Last Admin: 03/04/22 10:01 Dose: 25 mg Documented by: Promethazine HCl 12.5 mg/ (Sodium Chloride) 50.5 mls @ 202 mls/hr IV Q6H PRN PRN Reason: Nausea And Vomiting Stop: 03/28/22 00:02 Last Infusion: 02/28/22 19:16 Dose: Infused Documented by: Labetalol HCl (Labetalol Hcl Iv 5 Mg/Ml 20ml) 10 mg IV Q6H PRN PRN Reason: hypertension Stop: 03/28/22 15:30 Last Admin: 02/28/22 20:23 Dose: 10 mg Documented by: Lactobacillus Acidophilus (Lactobacillus Acidophilus 1 Gm Pack) 1 gm PEG HS DAIJA Stop: 03/28/22 20:59 Last Admin: 03/03/22 21:36 Dose: 1 gm Documented by: Lansoprazole (Lansoprazole 30 Mg Soltab) 30 mg GT BID DAIJA Stop: 03/28/22 08:59 Last Admin: 03/04/22 09:59 Dose: 30 mg Documented by: Levothyroxine Sodium (Levothyroxine Sodium 112 Mcg Tablet) 112 mcg GT DAILYBB [facility] Stop: 03/28/22 06:29 Last Admin: 03/04/22 06:23 Dose: 112 mcg Documented by: Lorazepam (Lorazepam 1 Mg Tab) 1 mg PO Q4H PRN PRN Reason: insomnia Stop: 03/31/22 22:41 Last Admin: 03/04/22 09:58 Dose: 1 mg Documented by: Losartan Potassium (Losartan Potassium 50 Mg Tab) 100 mg GT QAM [facility] Stop: 03/28/22 08:59 Last Admin: 03/04/22 09:58 Dose: 100 mg Documented by: Mirtazapine (Mirtazapine Tab 15 Mg Tab) 7.5 mg GT HS PRN PRN Reason: Sleep Stop: 03/28/22 15:26 Miscellaneous (Check Fentanyl Patch Placement) 1 ea N/A QS [facility] Stop: 03/28/22 01:14 Last Admin: 03/04/22 15:23 Dose: 1 ea Documented by: Miscellaneous (Fentanyl Patch Remove & Waste) 1 ea N/A Q3D@2059 [facility] Stop: 03/30/22 20:58 Last Admin: 03/03/22 21:31 Dose: 1 ea Documented by: Multivitamins/Minerals (Multi Vit W/Minerals Liquid 15 Ml Udp) 15 ml PO QAM [facility] Stop: 03/31/22 08:59 Last Admin: 03/04/22 09:59 Dose: 15 ml Documented by: Riluzole~Non- Formulary Patient's Own Med 1 ea PO BID [facility] Stop: 03/28/22 08:59 Last Admin: 03/04/22 09:59 Dose: 1 tab Documented by: Ondansetron HCl (Ondansetron 4 Mg Od Tab) 4 mg PO Q6H [facility] Stop: 03/28/22 15:59 Last Admin: 03/04/22 12:10 Dose: 4 mg Documented by: Saccharomyces Boulardii (Saccharomyces Boulardii 250 Mg Cap) 250 mg PO QAM [facility] Stop: 03/28/22 08:59 Last Admin: 03/04/22 09:58 Dose: 250 mg Documented by: Simethicone (Simethicone 40 Mg/0.6 Ml 30ml) 160 mg GT DAILY PRN PRN Reason: excessive gas Stop: 03/28/22 00:02 Last Admin: 02/26/22 10:41 Dose: 160 mg Documented by: Sterile Water (Tube Feeding Water Flush) 150 ml PEG Q4H [facility] Stop: 03/28/22 13:14 Last Admin: 03/04/22 13:26 Dose: 150 ml Documented by: Vancomycin HCl (Vancomycin Hcl 250 Mg/5 Ml Soln) 250 mg PEG Q6 [facility]; Protocol Stop: 03/08/22 11:59 Last Admin: 03/04/22 12:10 Dose: 250 mg Documented by:
[2022-03-04] MEDS: LACTOBACILLUS ACIDOPHILUS 1 GM PACK PEG SCH (20:38)
[2022-03-04] MEDS: HYDROmorphone HCL 2 MG TAB PO PRN (20:46)
[2022-03-04] MEDS ORDERED: SCOPOLAMINE 1 MG TDSY TD SCH (23:30)
[2022-03-04] MEDS: FIBERSOURCE HN 1.2 CAL 1000 ML BAG GT SCH (23:45)
[2022-03-05] MEDS: TUBE FEEDING WATER FLUSH PEG SCH ×6 (02:02→22:11)
[2022-03-05] MEDS: HYDROmorphone HCL 2 MG TAB PO PRN ×3 (03:46→23:59)
[2022-03-05] MEDS: guaiFENesin SUGAR FREE 200 MG/10 ML UDC GT SCH ×5 (05:34→23:49)
[2022-03-05] MEDS: VANCOMYCIN HCL 250 MG/5 ML SOLN PEG SCH ×4 (05:34→23:58)
[2022-03-05] MEDS: LEVOTHYROXINE SODIUM 112 MCG TABLET GT SCH (05:34)
[2022-03-05] MEDS: ONDANSETRON 4 MG OD TAB PO SCH ×4 (05:34→23:49)
[2022-03-05] MEDS: CHECK SCOPOLAMINE PATCH PLACEMENT SCH ×3 (08:24→23:51)
[2022-03-05] MEDS: CHECK fentaNYL PATCH PLACEMENT SCH ×2 (08:25→16:41)
[2022-03-05] MEDS: MULTI VIT W/MINERALS LIQUID 15 ML UDP PO SCH (08:26)
[2022-03-05] MEDS: RILUZOLE PO SCH ×2 (08:26→20:13)
[2022-03-05] MEDS: ENOXAPARIN INJ 40 MG/0.4 ML SYR SQ SCH (08:27)
[2022-03-05] MEDS: LANSOPRAZOLE 30 MG SOLTAB GT SCH ×2 (08:30→20:15)
[2022-03-05] MEDS: DICYCLOMINE HCL 20 MG TAB PEG PRN (08:30)
[2022-03-05] MEDS: GLYCOPYRROLATE 1 MG TAB PO SCH ×3 (08:30→20:13)
[2022-03-05] MEDS: SACCHAROMYCES BOULARDII 250 MG CAP PO SCH (08:31)
[2022-03-05] MEDS: FAMOTIDINE SUSP 40 MG/5 ML UDP PO SCH (08:32)
[2022-03-05] MEDS: CEFDINIR SUSP 250 MG/5 ML PO SCH ×2 (08:32→22:10)
[2022-03-05] MEDS: LOSARTAN POTASSIUM 50 MG TAB GT SCH (08:32)
[2022-03-05] MEDS: ALBUT/IPRATROP 3MG/0.5MG NEB 3 ML VIAL NEB SCH ×3 (11:02→19:28)
[2022-03-05] MEDS: LORazepam 1 MG TAB PO PRN ×2 (13:02→19:50)
--- NOTE | 2022-03-05 13:29 | Hospitalist Progress Note ---
Date of Service March 05, 2022 Assessment & Plan (1) Encephalopathy: (2) Acute UTI: Plan: 76 yo F w/ PMH of hypertension, ALS, aspiration with status post PEG tube placement, chronic pain on fentanyl patch, breast cancer status post surgery, recurrent UTIs on chronic methenamine suppression Rx/ chronic indwelling Rodriguez catheter/possible interstitial cystitis as per records,history DVT sp Xarelto, chronic anemia (baseline hemoglobin 10-11), history recurrent C. difficile ongoing vancomycin course, anxiety/mood disorder, past tobacco abuse presented due to episodes of agitation and pulling at PEG tube, more confused than usual. She is being managed for the following: #. Metabolic encephalopathy on admission due to UTI- resolved. #. CAUTI Patient presented with confusion, was found to have UTI in ED. Confusion likely related to her recurrent UTI/complex comorbidities/multiple neuropsychotropic medications and pain medications that she is requiring. Patient had history of allergy to meropenem in December 2021 at [facility]. Patient has been admitted Multiple times to the hospital for recurrent UTI and C. difficile in the past. Admitting urinalysis suggestive of UTI, Cx showing K. oxytoca and Ecoli Zosyn 02/26 (intermediate sensitive to orgs in [facility])---> Rocephin 02/27--> cefdinir from 7/2 AM and tolerating without issues Rodriguez changed today 03/04 #. Recurrent diagnosis of C diffcurrently under vanc po Patient had recent confinement at [facility] for February 15 to for AMS, UTI was ruled out, vancomycin course for C. difficile was extended until March 05, 2022. #. PEG tube concerns PEG tube in place per x-ray, not secure. PEG tube exchanged 02/28/22 at bedside by GI service. #. Other chronic medical conditions:ALS, PEG tube feeding ALS care including suction, anticholinergics, riluzole as able. Dietitian eval for tube feeding. DVT prophylaxis:sq lovenox Dispo: Medically stable for discharge- awaiting availability of home health for discharge. High risk for readmission. Due to poor prognosis, involving hospice might be a better idea- seen by palliative but patient and family not ready for hospice. Updated daughter at bedside Admission and Anticipated Discharge Date Admission Date: February 25, 2022 Subjective Feels fine. She wants to go home. No new issues. Asking for nebs treatment. No fever, chills, N/V. Physical Exam Physical Exam: General: Sitting comfortably in bed, not in distress, on room air HEENT: EOMI, ALONDRA, MMM Chest: Clear breath sounds bilaterally, no wheezes or crackles CVS: Regular rate and rhythm, normal heart sounds, no murmur Abdomen: Soft, non tender, not distended, normal bowel sounds Neuro: Awake, alert, oriented, conversing well- left side flaccid as before Extremities: No cyanosis, clubbing or edema Results & Data Results & Data ([facility]) Vital Signs (Past 12 Hours) Vital Signs Temp Pulse Pulse Resp BP Pulse Ox 03/05/22 11:02 71 18 93 03/05/22 10:28 36.8 C 75 16 161/76 H 94 Medications Administered Current Inpatient Medications Albuterol (Albut/Ipratrop 3mg/0.5mg Neb 3 Ml Vial) 3 ml NEB QIDR DAIJA; Protocol Stop: 04/04/22 10:39 Last Admin: 03/05/22 11:02 Dose: 3 ml Documented by: Calamine/Phenol (Menthol-Zinc Oxide 360 Appln/120 Gm Tube) 1 appln EXT BID PRN PRN Reason: skin irritation Stop: 04/02/22 20:59 Cefdinir (Cefdinir Susp 250 Mg/5 Ml) 300 mg PO BID [facility] Stop: 03/12/22 08:59 Last Admin: 03/05/22 08:32 Dose: 300 mg Documented by: Cetirizine HCl (Cetirizine Hcl 10 Mg Tablet) 5 mg PO DAILY PRN PRN Reason: Allergy Symptoms Stop: 03/28/22 00:27 Cholestyramine Resin (Cholestyramine Light 4 Gm Pkt) 4 gm PO BID PRN PRN Reason: Stool Bulking Stop: 03/28/22 15:38 Last Admin: 02/28/22 11:04 Dose: 4 gm Documented by: Dicyclomine HCl (Dicyclomine Hcl 20 Mg Tab) 20 mg PEG Q6H PRN PRN Reason: Diarrhea/abdominal pain Stop: 03/28/22 00:02 Last Admin: 03/05/22 08:30 Dose: 20 mg Documented by: Diphenhydramine HCl (Diphenhydramine Capsule 25 Mg Cap) 25 mg PO DAILY PRN PRN Reason: Allergy Symptoms Stop: 03/28/22 15:39 Enoxaparin Sodium (Enoxaparin Inj 40 Mg/0.4 Ml Syr) 40 mg SQ QAM [facility] Stop: 03/28/22 08:59 Last Admin: 03/05/22 08:27 Dose: 40 mg Documented by: Enteral Nutritional Formula (Fibersource Hn 1.2 Kavon 1000 Ml Bag) 1,000 ml GT UD [facility]; Protocol Stop: 03/28/22 13:14 Last Admin: 03/04/22 23:45 Dose: 1,000 ml Documented by: Famotidine (Famotidine Susp 40 Mg/5 Ml Udp) 40 mg PO QAM [facility] Stop: 03/28/22 08:59 Last Admin: 03/05/22 08:32 Dose: 40 mg Documented by: Fentanyl (Fentanyl 50 Mcg/Hr Tdsy) 50 mcg TD Q3D@2100 [facility] Stop: 03/14/22 20:59 Last Admin: 03/03/22 21:31 Dose: 50 mcg Documented by: Fluticasone Propionate (Fluticasone Propionate Na Spr 16 Gm Btl) 2 sprays NA DAILY PRN PRN Reason: Allergy Symptoms Stop: 03/28/22 15:26 Glycopyrrolate (Glycopyrrolate 1 Mg Tab) 1 mg PO TID [facility] Stop: 03/28/22 08:59 Last Admin: 03/05/22 13:03 Dose: 1 mg Documented by: Guaifenesin (Guaifenesin Sugar Free 200 Mg/10 Ml Udc) 400 mg GT [id number] [facility] Stop: 03/29/22 10:59 Last Admin: 03/05/22 10:39 Dose: 400 mg Documented by: Hydromorphone HCl (Hydromorphone Hcl 2 Mg Tab) 1 mg PO Q4H PRN PRN Reason: severe pain Stop: 03/13/22 09:59 Last Admin: 03/05/22 03:46 Dose: 1 mg Documented by: Hydroxyzine HCl (Hydroxyzine Hcl 25 Mg Tab) 25 mg GT Q6H PRN PRN Reason: Itching/anxiety/drying Stop: 03/28/22 00:36 Last Admin: 03/04/22 10:01 Dose: 25 mg Documented by: Promethazine HCl 12.5 mg/ (Sodium Chloride) 50.5 mls @ 202 mls/hr IV Q6H PRN PRN Reason: Nausea And Vomiting Stop: 03/28/22 00:02 Last Infusion: 02/28/22 19:16 Dose: Infused Documented by: Labetalol HCl (Labetalol Hcl Iv 5 Mg/Ml 20ml) 10 mg IV Q6H PRN PRN Reason: hypertension Stop: 03/28/22 15:30 Last Admin: 02/28/22 20:23 Dose: 10 mg Documented by: Lactobacillus Acidophilus (Lactobacillus Acidophilus 1 Gm Pack) 1 gm PEG HS [facility] Stop: 03/28/22 20:59 Last Admin: 03/04/22 20:38 Dose: 1 gm Documented by: Lansoprazole (Lansoprazole 30 Mg Soltab) 30 mg GT BID [facility] Stop: 03/28/22 08:59 Last Admin: 03/05/22 08:30 Dose: 30 mg Documented by: Levothyroxine Sodium (Levothyroxine Sodium 112 Mcg Tablet) 112 mcg GT DAILYBB [facility] Stop: 03/28/22 06:29 Last Admin: 03/05/22 05:34 Dose: 112 mcg Documented by: Lorazepam (Lorazepam 1 Mg Tab) 1 mg PO Q4H PRN PRN Reason: insomnia Stop: 03/31/22 22:41 Last Admin: 03/05/22 13:02 Dose: 1 mg Documented by: Losartan Potassium (Losartan Potassium 50 Mg Tab) 100 mg GT QAM [facility] Stop: 03/28/22 08:59 Last Admin: 03/05/22 08:32 Dose: 100 mg Documented by: Mirtazapine (Mirtazapine Tab 15 Mg Tab) 7.5 mg GT HS PRN PRN Reason: Sleep Stop: 03/28/22 15:26 Miscellaneous (Check Fentanyl Patch Placement) 1 ea N/A QS [facility] Stop: 03/28/22 01:14 Last Admin: 03/05/22 08:25 Dose: 1 ea Documented by: Miscellaneous (Fentanyl Patch Remove & Waste) 1 ea N/A Q3D@2058 [facility] Stop: 03/30/22 20:58 Last Admin: 03/03/22 21:31 Dose: 1 ea Documented by: Miscellaneous (Check Scopolamine Patch Placement) 1 ea N/A QS [facility] Stop: 04/04/22 07:59 Last Admin: 03/05/22 08:24 Dose: 1 ea Documented by: Miscellaneous (Remove Transderm-Scop Patch) 1 ea N/A Q72H [facility] Stop: 04/06/22 23:28 Multivitamins/Minerals (Multi Vit W/Minerals Liquid 15 Ml Udp) 15 ml PO QAM [facility] Stop: 03/31/22 08:59 Last Admin: 03/05/22 08:26 Dose: 15 ml Documented by: Riluzole~Non- Formulary Patient's Own Med 1 ea PO BID [facility] Stop: 03/28/22 08:59 Last Admin: 03/05/22 08:26 Dose: 1 tab Documented by: Ondansetron HCl (Ondansetron 4 Mg Od Tab) 4 mg PO Q6H [facility] Stop: 03/28/22 15:59 Last Admin: 03/05/22 12:00 Dose: 4 mg Documented by: Saccharomyces Boulardii (Saccharomyces Boulardii 250 Mg Cap) 250 mg PO QAM [facility] Stop: 03/28/22 08:59 Last Admin: 03/05/22 08:31 Dose: 250 mg Documented by: Scopolamine (Scopolamine 1 Mg Tdsy) 1 mg TD Q72H [facility] Stop: 04/03/22 23:29 Last Admin: 03/04/22 23:45 Dose: 1 mg Documented by: Simethicone (Simethicone 40 Mg/0.6 Ml 30ml) 160 mg GT DAILY PRN PRN Reason: excessive gas Stop: 03/28/22 00:02 Last Admin: 02/26/22 10:41 Dose: 160 mg Documented by: Sterile Water (Tube Feeding Water Flush) 150 ml PEG Q4H [facility] Stop: 03/28/22 13:14 Last Admin: 03/05/22 13:03 Dose: 150 ml Documented by: Vancomycin HCl (Vancomycin Hcl 250 Mg/5 Ml Soln) 250 mg PEG Q6 [facility]; Protocol Stop: 03/08/22 11:59 Last Admin: 03/05/22 12:03 Dose: 250 mg Documented by:
[2022-03-05] MEDS: hydrOXYzine HCl 25 MG TAB GT PRN (20:11)
[2022-03-05] MEDS: LACTOBACILLUS ACIDOPHILUS 1 GM PACK PEG SCH (20:15)
[2022-03-05] MEDS: FIBERSOURCE HN 1.2 CAL 1000 ML BAG GT SCH (23:50)
[2022-03-06] MEDS: CHECK fentaNYL PATCH PLACEMENT SCH ×2 (00:01→09:10)
[2022-03-06] MEDS: TUBE FEEDING WATER FLUSH PEG SCH ×3 (02:15→09:17)
[2022-03-06] MEDS: VANCOMYCIN HCL 250 MG/5 ML SOLN PEG SCH ×2 (06:01→11:21)
[2022-03-06] MEDS: LEVOTHYROXINE SODIUM 112 MCG TABLET GT SCH (06:01)
[2022-03-06] MEDS: ONDANSETRON 4 MG OD TAB PO SCH ×2 (06:01→11:22)
[2022-03-06] MEDS: guaiFENesin SUGAR FREE 200 MG/10 ML UDC GT SCH ×2 (06:02→11:22)
[2022-03-06] MEDS: ALBUT/IPRATROP 3MG/0.5MG NEB 3 ML VIAL NEB SCH ×2 (07:16→11:19)
[2022-03-06] MEDS: LORazepam 1 MG TAB PO PRN ×2 (07:21→12:33)
[2022-03-06] MEDS: CHECK SCOPOLAMINE PATCH PLACEMENT SCH (09:09)
[2022-03-06] MEDS: MULTI VIT W/MINERALS LIQUID 15 ML UDP PO SCH (09:10)
[2022-03-06] MEDS: GLYCOPYRROLATE 1 MG TAB PO SCH (09:11)
[2022-03-06] MEDS: LANSOPRAZOLE 30 MG SOLTAB GT SCH (09:13)
[2022-03-06] MEDS: FAMOTIDINE SUSP 40 MG/5 ML UDP PO SCH (09:13)
[2022-03-06] MEDS: LOSARTAN POTASSIUM 50 MG TAB GT SCH (09:14)
[2022-03-06] MEDS: ENOXAPARIN INJ 40 MG/0.4 ML SYR SQ SCH (09:14)
[2022-03-06] MEDS: CHOLESTYRAMINE LIGHT 4 GM PKT PO PRN (09:14)
[2022-03-06] MEDS: RILUZOLE PO SCH (09:15)
[2022-03-06] MEDS: SACCHAROMYCES BOULARDII 250 MG CAP PO SCH (09:16)
[2022-03-06] MEDS: CEFDINIR SUSP 250 MG/5 ML PO SCH (09:19)
[2022-03-06] MEDS: DICYCLOMINE HCL 20 MG TAB PEG PRN (11:21)
--- NOTE | 2022-03-06 12:56 | Discharge Summary ---
Date of Service March 06, 2022 Admission HPI Per Admitting Provider History obtained from patient, family, and records. From patient secondary to obtunded state. Medical history significant for hypertension, ALS, aspiration with status post PEG tube placement, chronic pain on fentanyl patch, breast cancer status post surgery, recurrent UTIs on chronic methenamine suppression Rx/ chronic indwelling Kenny catheter/possible interstitial cystitis as per records,history DVT sp Xarelto, chronic anemia (baseline hemoglobin 10-11), history recurrent C. difficile ongoing vancomycin course, anxiety/mood disorder, past tobacco abuse. Monthly [facility] confinements since October 2021. Last confinement January 27 to February 05, 2022 for community-acquired UTI in the setting of ALS. Recent confinement [facility] for February 15 to 2021 for altered mental status. Family brought patient to [facility] for ID specialty. UTI ruled out. Enteral vancomycin course for C. difficile extended until March 05, 2022. Family still not interested in hospice as per [facility] at home provider note. Today home health nurse noticed feeding tube was likely pulled out. Patient with episodes of agitation and pulling at tube as per family. Patient more confused than usual and slow to answer. Patient denies chest pain, SOB, abdominal pain complaints. Patient brought to the ER for evaluation. Cefepime given for possible UTI. 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 Admission Exam Per Admitting Provider GENERAL: Obtunded , no respiratory distress SKIN: Pallor, warm HEENT: Pale palpebral conjunctivae, no ptosis, dry buccal mucosa NECK : Supple, no tenderness CHEST : Decreased breath sounds, no tenderness HEART : RRR, no obvious murmurs ABDOMEN: Some distention, unsecured PEG tube in place EXTREMITIES : No LE swelling/tenderness, no other conspicuous deformities noted NEUROLOGIC : Obtunded, no facial asymmetry, gait and stance not assessed Principal Diagnosis Metabolic encepalopathy due to CAUTI Discharge Exam General: Sitting comfortably in bed, not in distress, on room air HEENT: EOMI, ALONDRA, MMM Chest: Clear breath sounds bilaterally, no wheezes or crackles CVS: Regular rate and rhythm, normal heart sounds, no murmur Abdomen: Soft, non tender, not distended, normal bowel sounds. PEG site clean. Neuro: Awake, alert, oriented, conversing well- left side flaccid as before Extremities: No cyanosis, clubbing or edema Kenny with nick urine Discharge Data Allergies Allergy/AdvReac Type Severity Reaction Status Date / Time Iodinated Contrast Media Allergy Severe dyspnea Verified 02/25/22 20:53 azithromycin Allergy Intermediate rash Verified 02/25/22 20:53 cefaclor Allergy Intermediate hives Verified 02/25/22 20:53 erythromycin base Allergy Intermediate hives Verified 02/25/22 20:53 levalbuterol Allergy Intermediate chest pain Verified 02/25/22 20:53 minocycline Allergy Intermediate rash Verified 02/25/22 20:53 nitrofurantoin Allergy Intermediate possible Verified 02/25/22 20:53 hives or dyspnea phenazopyridine Allergy Intermediate dyspnea Verified 02/25/22 20:53 Sulfa (Sulfonamide Allergy Intermediate hives Verified 02/25/22 20:53 Antibiotics) oxycodone [From OxyContin] Allergy Unknown Unverified 02/25/22 20:53 meropenem AdvReac Severe Hives Verified 02/25/22 20:53 metronidazole AdvReac Intermediate GI symptoms Verified 02/25/22 20:53 morphine AdvReac Intermediate vomiting Verified 02/25/22 20:53 levofloxacin AdvReac Mild abdominal Verified 02/25/22 20:53 pain albuterol [From Ventolin HFA] AdvReac Chest Pain Unverified 02/25/22 20:53 iodine AdvReac Anaphylaxis Unverified 02/25/22 20:53 tramadol AdvReac Confusion Unverified 02/25/22 20:53 Consultations 02/25/22 19:49 ED Decision to Admit Stat 02/25/22 21:31 Consult Gastroenterology Routine 02/26/22 06:07 Consult Palliative Care Routine Ordered Studies 02/25/22 16:14 CT head/brain wo con Stat Laboratory Results WBC 6.31 K/uL (4.8-10.8) 03/01/22 06:34 RBC 4.30 M/uL (4.2-5.4) 03/01/22 06:34 Hgb 11.2 g/dL (12.0-16.0) L 03/01/22 06:34 Hct 35.6 % (37-47) L 03/01/22 06:34 MCV 82.8 fL (80-100) 03/01/22 06:34 MCH 26.0 pg (25-34) 03/01/22 06:34 MCHC 31.5 g/dL (32-36) L 03/01/22 06:34 RDW Std Deviation 41.5 fL (36.4-46.3) 03/01/22 06:34 RDW Coeff of Marcela 13.7 % (11.5-14.5) 03/01/22 06:34 Plt Count 308 K/uL (130-400) 03/01/22 06:34 MPV 11.0 fL (7.4-10.4) H 03/01/22 06:34 Immature Gran % (Auto) 0.2 % 02/25/22 16:56 Neut % (Auto) 72.9 % 02/25/22 16:56 Lymph % (Auto) 16.8 % 02/25/22 16:56 [place] % (Auto) 7.2 % 02/25/22 16:56 Eos % (Auto) 2.6 % 02/25/22 16:56 Baso % (Auto) 0.3 % 02/25/22 16:56 Neut # (Auto) 4.42 K/uL (1.4-6.5) 02/25/22 16:56 Lymph # (Auto) 1.02 K/uL (1.2-3.4) L 02/25/22 16:56 [place] # (Auto) 0.44 K/uL (0.11-0.59) 02/25/22 16:56 Eos # (Auto) 0.16 K/uL (0-0.5) 02/25/22 16:56 Baso # (Auto) 0.02 K/uL (0-0.2) 02/25/22 16:56 Immature Gran # (Auto) 0.01 K/uL (0.00-0.02) 02/25/22 16:56 PT 10.3 Seconds (9.0-12.0) 02/25/22 16:56 INR 1.0 (0.9-1.1) 02/25/22 16:56 APTT 29.1 Seconds (21.0-31.0) 02/25/22 16:56 PTT Ratio 1.1 02/25/22 16:56 Sodium 136 mmol/L (136-145) 03/01/22 06:34 Potassium 3.7 mmol/L (3.5-5.1) 03/01/22 06:34 Chloride 101 mmol/L (98-107) 03/01/22 06:34 Carbon Dioxide 28 mmol/L (21-32) 03/01/22 06:34 Anion Gap 7 (3-11) 03/01/22 06:34 BUN 12 mg/dl (6-23) 03/01/22 06:34 Creatinine 0.37 mg/dl (0.6-1.2) L 03/01/22 06:34 Est Cr Clr Drug Dosing 98.4 ml/min 03/01/22 06:34 Est GFR ( Amer) 119.5 ml/min 03/01/22 06:34 Est GFR (Non-Af Amer) 103.1 ml/min 03/01/22 06:34 BUN/Creatinine Ratio 32.4 (10-20) H 03/01/22 06:34 Glucose 124 mg/dl (70-99(Fasting)) H 03/01/22 06:34 Lactate 0.6 mmol/L (0.4-2.0) 02/25/22 16:56 Calcium 9.2 mg/dl (8.5-10.1) 03/01/22 06:34 Phosphorus 3.4 mg/dl (2.5-4.9) 03/01/22 06:34 Magnesium 1.8 mg/dl (1.7-2.4) 03/01/22 06:34 Total Bilirubin 0.3 mg/dl (0.2-1.0) 02/25/22 16:56 AST 15 U/L (13-39) 02/25/22 16:56 ALT 18 U/L (7-52) 02/25/22 16:56 Alkaline Phosphatase 83 U/L (34-104) 02/25/22 16:56 Troponin I High Sens 10.8 pg/ml (0-14) 02/25/22 16:56 Total Protein 6.2 gm/dl (6.0-8.3) 02/25/22 16:56 Albumin 3.6 gm/dl (3.4-5.0) 02/25/22 16:56 Globulin 2.6 gm/dl (2.5-4.0) 02/25/22 16:56 Albumin/Globulin Ratio 1.4 (0.9-2) 02/25/22 16:56 Procalcitonin 0.18 ng/ml (0-0.5) 02/25/22 16:56 TSH 5.734 uIu/ml (0.300-4.500) H 02/25/22 16:56 Free T4 1.09 ng/dl (0.61-1.60) 02/25/22 16:56 Urine Color Yellow 02/25/22 17:42 Urine Appearance Cloudy (Clear) A 02/25/22 17:42 Urine pH 7.5 (4.5-7.5) 02/25/22 17:42 Ur Specific [place] 1.007 (1.000-1.030) 02/25/22 17:42 Urine Protein Negative (Negative) 02/25/22 17:42 Urine Glucose (UA) Negative (Negative) 02/25/22 17:42 Urine Ketones Negative (Negative) 02/25/22 17:42 Urine Blood Negative (Negative) 02/25/22 17:42 Urine Nitrite Negative (Negative) 02/25/22 17:42 Urine Bilirubin Negative (Negative) 02/25/22 17:42 Urine Urobilinogen Negative (Negative) 02/25/22 17:42 Ur Leukocyte Esterase 3+ (Negative) H 02/25/22 17:42 Urine WBC (Auto) >30 /hpf (0-5) H 02/25/22 17:42 Urine RBC (Auto) 0-4 /hpf (0-4) 02/25/22 17:42 U Hyaline Cast (Auto) 0 /lpf (0-5) 02/25/22 17:42 U Epithel Cells (Auto) 10-20 /lpf (0-5) H 02/25/22 17:42 Urine Bacteria (Auto) 4+ (Negative) H 02/25/22 17:42 Urine Yeast Present (None Prsent) A 02/25/22 17:42 Stl C. diff Tox B Gene Negative Cdiff Gene (Neg) 02/26/22 00:03 SARS-CoV-2, RNA, NAAT NEGATIVE (NEGATIVE) 02/25/22 16:33 Impressions Chest X-Ray 02/25/22 16:12 SINGLE VIEW CHEST CLINICAL HISTORY: Sepsis. FINDINGS: An AP, portable, upright chest radiograph is compared to study dated 01/27/2022. The examination is degraded by portable technique and patient rotation. The heart is enlarged noting atherosclerotic calcification of the thoracic aorta. The pulmonary vasculature is noncongested. Chronic interstitial thickening is similar to previous. Left basilar opacities are unchanged and likely represent atelectasis. The lungs and pleural spaces are otherwise clear. No pneumothorax is seen. The skeletal structures are osteopenic. The bony thorax is grossly intact. Enteric contrast is noted in the stomach. IMPRESSION: 1. Cardiomegaly without radiographic evidence of congestive failure. 2. Left basilar opacities are unchanged from prior studies and likely represent atelectasis. Clinical correlation will be required. ACT 112: Negative or not required by law. Electronically signed by: Jeremiah Estrella M.D. 02/25/2022 6:43 PM KUB X-Ray 02/25/22 16:12 KUB TUBE CHECK CLINICAL HISTORY: PEG tube placement. FINDINGS: An AP, portable, supine abdominal radiographs was obtained. Approximately 50 cc of Optiray 300 was then injected through the PEG tube and 2 additional images were obtained. Comparison is made to study dated 12/16/2021 and correlated with abdominal CT dated 01/10/2022. The initial image shows a gastrostomy tube projecting over the left upper quadrant. There is no bowel obstruction. Suture material projects over the pelvis and there is mesh material projecting over the right groin. No evidence of intracranial free air is seen on these supine images. There are no abnormal abdominal calcifications. The skeletal structures are osteopenic and appear intact. The injected contrast goes into the stomach. No extraluminal contrast is seen. The heart is enlarged. IMPRESSION: 1. The gastrostomy tube is located in the stomach. 2. No extraluminal contrast is identified. 3. Nonobstructed bowel gas pattern. Electronically signed by: Jeremiah Estrella M.D. 02/25/2022 6:[address] 02/25/22 16:14 CT SCAN OF THE BRAIN WITHOUT IV CONTRAST CLINICAL HISTORY: Change in mental status. COMPARISON STUDY: CT of the brain dated 01/10/2022. TECHNIQUE: Unenhanced axial CT scan of the brain is performed from the vertex to the skull base. A dose lowering technique was utilized adhering to the principles of ALARA. CT DOSE: 749.40 mGy.cm FINDINGS: Brain parenchyma: There is age-related involutional change noting mild to moderate subcortical and periventricular microangiopathic disease. There is no hemorrhage, mass effect, or evidence of acute territorial ischemia by CT criteria. Ballard-white matter differentiation is preserved. No extra-axial fluid collection is seen. Ventricles, sulci, cisterns: Prominent secondary to involutional change. Intracranial vasculature: There is atherosclerotic calcification of the cavernous carotid and vertebral arteries. Calvarium: Unremarkable. Sinuses and mastoids: The paranasal sinuses are clear. The mastoid air cells are well pneumatized. Orbits: The bony orbits are grossly intact. IMPRESSION: There is no hemorrhage, mass effect, or evidence of acute territorial ischemia by CT criteria. ACT 112: Negative or not required by law. Electronically signed by: Jeremiah Estrella M.D. 02/25/2022 5:18 PM Hospital Course (1) Encephalopathy: (2) Acute UTI: 76 yo F w/ PMH of hypertension, ALS, aspiration with status post PEG tube placement, chronic pain on fentanyl patch, breast cancer status post surgery, recurrent UTIs on chronic methenamine suppression Rx/ chronic indwelling Kenny catheter/possible interstitial cystitis as per records,history DVT sp Xarelto, chronic anemia (baseline hemoglobin 10-11), history recurrent C. difficile ongoing vancomycin course, anxiety/mood disorder, past tobacco abuse presented due to episodes of agitation and pulling at PEG tube, more confused than usual. She was found to have UTI due to E coli and Klebsiella and has completed 8 days of ABx treatment Ceftriaxone->Cefdinir. Her kenny was changed 03/04. Her encephalopathy resolved with UTI treatment. Her PEG tube was also exchanged by GI on 02/28. Family states she has macrobid at home- ok to continue prophylactic dose 100 mg daily to prevent recurrent UTI, along with catheter care. They will reach out to PCP for more refills if they run out. Home health was arranged. She is comfortable and stable for discharge. Updated daughter at bedside. #. Metabolic encephalopathy on admission due to UTI- resolved. #. CAUTI Patient presented with confusion, was found to have UTI in ED. Patient has been admitted Multiple times to the hospital for recurrent UTI and C. difficile in the past. Admitting urinalysis suggestive of UTI, urine clx showing K. oxytoca and Ecoli sensitive to ceftriaxone and macrobid Zosyn 02/26 (intermediate sensitive to orgs in UCx)---> Rocephin 02/27--> cefdinir from 7/2 AM and tolerating without issues. Completed 8 days of ABx treatment already- no further need at discharge. Ok to continue macrobid 100 mg daily for UTI prophylaxis- family has the meds at home. Kenny changed today 03/04- continue changing at least once every month. #. Recurrent diagnosis of C diff- She was on prophylactic vanc po while on ABx. Can discontinue at discharge. #. PEG tube exchanged 02/28/22 at bedside by GI service. Continue tube feeding. # ALS- ALS care including suction, anticholinergics, continue riluzole Home Health Attestation I certify that this patient is under my care and that I, or a physicians medical assistant internal medicine working with me, had a face to-face encounter that meets the home health [id number] encounter requirements with this patient. The encounter with the patient was in whole, or in part, for the following medical condition, which is the primary reason for home health care (list medical condition): PEG feeds I certify that, based on my findings, the following services are medically necessary home health services: My clinical findings support the need for the above services because: Skilled Nsg Assessment Further, I certify that my clinical findings support that this patient is homebound (i.e. absences from home require considerable and taxing effort and are for medical reasons or pent[employer] services or infrequently or of short duration when for other reasons) because: Maximum Assistance with All Activities Certification for Home Health Services: Based on the above findings, I certify that this patient is confined to the home and needs intermittent fpc care, physical therapy and/or speech therapy or continues to need occupational therapy. The patient is under my care, and I have initiated the establishment of the plan of care. This patient will be followed by a physician who will periodically review the plan of care. Total Time Total Time Spent Total Time Spent (In Minutes): 35 Discharge Plan Discharge Items Patient Disposition: Home - Home Health Services Reason For Visit: ENCEPHALOPATHY, COMP UTI Discharge Diagnosis: Metabolic encephalopathy, CAUTI Activity: Resume your previous activity Non-emergency contact: Primary Care Provider Call non-emergency contact if: you have any medication questions, your symptoms worsen and you have a fever Follow-up/Referrals: Devonte Sweeney, [Primary Care Provider] - (Please call to arrange an appointment that is accommodating and convenient for Mrs Quinn. ) Diet: Nothing by Mouth Addtl Attending Provider Instructions: You are done with the antibiotic course for your urinary tract infection. Continue catheter care, get kenny changed at least every month Pending Studies at Discharge: No Stand-Alone Forms: My [employer], Smoking Cessation Medications and DC Order Prescriptions: Continued losartan 50 mg tablet 100 mg feeding tube QAM RF: 0 levothyroxine 112 mcg tablet 112 mcg feeding tube DAILYBB RF: 0 hydroxyzine HCl 25 mg tablet 25 mg feeding tube Q6 PRN (Reason: Itching/anxiety/drying) RF: 0 riluzole 50 mg tablet 50 mg feeding tube BID RF: 0 hydrocortisone 2.5 % cream with perineal applicator 1 applic ND BID PRN (Reason: Hemorrhoids) RF: 0 hyoscyamine sulfate 0.125 mg tablet, sublingual 0.125 mg feeding tube Q4 PRN (Reason: abdominal cramps) RF: 0 gabapentin 100 mg capsule 100 mg feeding tube TID RF: 0 famotidine 40 mg/5 mL (8 mg/mL) suspension 40 mg feeding tube QAM RF: 0 lorazepam 1 mg tablet 1 mg feeding tube QID PRN (Reason: Anxiety) RF: 0 fluticasone propionate 50 mcg/actuation spray,suspension 2 spray INTRANASAL DAILY PRN (Reason: Allergy Symptoms) RF: 0 simethicone 80 mg Tablet,Chewable 160 mg feeding tube DAILY PRN (Reason: excessive gas) RF: 0 cholestyramine (with sugar) 4 gram powder in packet 0.5 - 1 ea feeding tube BID PRN (Reason: Stool Bulking) RF: 0 mirtazapine 7.5 mg tablet 7.5 mg feeding tube HS PRN (Reason: Sleep) RF: 0 Guaifenesin 400mg/20ml 20 ml feeding tube Q4H PRN (Reason: mucus) RF: 0 nystatin 100,000 unit/mL suspension 10 ml PO TID PRN (Reason: mouth sores) RF: 0 Saccharomyces boulardii [Florastor] 250 mg capsule 250 mg feeding tube QAM RF: 0 hydromorphone [Dilaudid] 2 mg tablet 1 mg feeding tube Q4H PRN (Reason: pain) RF: 0 methenamine hippurate 1 gram Tablet 1 g PO BID Qty: 60 RF: 0 diphenhydramine HCl [Benadryl Allergy] 25 mg Tablet 25 - 50 mg PO DAILY PRN (Reason: Allergy Symptoms) RF: 0 ascorbic acid (vitamin C) [Vitamin C] 500 mg tablet 500 mg feeding tube QAM RF: 0 lidocaine 5 % Adhesive Patch,Medicated 1 patch TOPICAL DAILY PRN (Reason: Pain) RF: 0 albuterol sulfate 2.5 mg /3 mL (0.083 %) solution for nebulization 2.5 mg inhalation Q4H PRN (Reason: Wheezing) RF: 0 ondansetron HCl 4 mg tablet 4 mg feeding tube Q6H RF: 0 dicyclomine 20 mg tablet 20 mg feeding tube Q6H PRN (Reason: Diarrhea/abdominal pain) RF: 0 levocetirizine [Xyzal] 5 mg Tablet 5 mg feeding tube DAILY PRN (Reason: Allergy Symptoms) RF: 0 menthol-zinc oxide [Calmoseptine] 0.44-20.6 % Ointment 1 applic TOPICAL QID PRN (Reason: sores) RF: 0 Probiotic 3 billion cell Capsule 0 mmu cells feeding tube HS RF: 0 lansoprazole 30 mg tablet,disintegrat, delay rel 30 mg feeding tube BID Qty: 0 RF: 0 fentanyl 50 mcg/hr patch 72 hour 50 mcg transdermal [id number] RF: 0 glycopyrrolate 1 mg tablet 1 mg feeding tube TID RF: 0 vancomycin 50 mg/mL recon soln 250 mg PO Q6 RF: 0 Discharge Orders: Discharge Order (Routine); Ordered 03/06/22 Ordered By: Franc Osborn/Other Patient Handouts: Urinary Tract Infections in Women Admission Data Admit Date/Time: 02/25/22 21:25 Attending Provider: Franc Araiza Admit Provider: Eduar Stevens Primary Care Provider: Devonte Sweeney Other Providers: [facility] ; Eduar Stevens ; Tevin Calix ; Julianne Ivey ; Shar Rivera ; Beth Denis ; Darius Franco ; Katilyn Chung ; Cayla Cat ; Augusto Fraga ; Dixie Melgar ; Candida Cisneros ; Sanaz Sharp ; Layla Ace ; Keisha Morgan ; Rosa Iyer ; [facility] Other Interventions: Discharge Summary Assessment (RN) Last Done: 03/06/22 11:52
== END 2022-03-06 13:05 | disposition home health service (06) | DRG 698 ==
LOC: ED 15:32 → SUATTDRO 21:25 → 2E 21:25 → 3N 03-01 19:45